=== PATIENT | male | born 1945 | race Hispanic/Latino ===

== ENCOUNTER 2018-12-28 22:34 | Inpatient (IN) | payer MEDICARE ==
--- NOTE | 2018-12-28 22:46 | Emergency Department Report ---
ED Shortness of Breath HPI - General Stated Complaint: RESP ARREST Time Seen by Provider: 12/28/18 22:34 Source: family, EMS Mode of arrival: Stretcher Limitations: Altered Mental Status - History of Present Illness Initial Comments: Patient is a 73-year-old male presents emergency room via EMS for respiratory arrest.. Report received from EMS. EMS states that the patient was found down with agonal breathing. Patient was given respiratory support via nasal trumpet and BVM. Patient had a pulse entire time. Report received from family. Family states the patient has been having increased shortness of breath over the past 2 weeks. states that the patient went to bed and when she went up to check on him 10 minutes later the patient was unresponsive with shallow breathing. MD Complaint: shortness of breath -: Sudden Consistency: constant Known History Of: diabetes Treatments Prior to Arrival: oxygen - Related Data Home Oxygen Therapy: No ED Review of Systems ROS: Stated complaint: RESP ARREST Other details as noted in HPI Comment: Unobtainable due to pts medical conditions ED Past Medical Hx - Past Medical History Previous Medical History?: Yes Hx Hypertension: Yes Hx Heart Attack/AMI: Yes Hx Diabetes: Yes Hx Arthritis: Yes Additional medical history: RLS - Surgical History Past Surgical History?: Yes Hx Open Heart Surgery: Yes Additional Surgical History: cabg - Family History Family history: no significant - Social History Smoking Status: Never Smoker Substance Use Type: None ED Physical Exam - General Limitations: Altered Mental Status General appearance: lethargic - Head Head exam: Present: atraumatic, normocephalic - Eye Eye exam: Present: normal appearance, PERRL Pupils: Present: normal accommodation - ENT ENT exam: Present: mucous membranes dry - Neck Neck exam: Present: normal inspection - Respiratory Respiratory exam: Present: respiratory distress, rhonchi, decreased breath sounds - Cardiovascular Cardiovascular Exam: Present: regular rate, normal rhythm. Absent: systolic murmur, diastolic murmur, rubs, gallop - GI/Abdominal GI/Abdominal exam: Present: soft, normal bowel sounds. Absent: distended, tenderness, guarding - Rectal Rectal exam: Present: deferred - Extremities Exam Extremities exam: Present: normal inspection - Back Exam Back exam: Present: normal inspection - Neurological Exam Neurological exam: Present: altered - Skin Skin exam: Present: warm, dry, intact, normal color. Absent: rash ED Course Vital Signs 12/28/18 12/28/18 12/28/18 22:34 22:45 23:00 Pulse Rate 84 81 Respiratory 19 17 Rate Blood Pressure 137/72 137/72 O2 Sat by Pulse 91 94 91 Oximetry 12/28/18 12/28/18 12/28/18 23:15 23:30 23:45 Pulse Rate 66 54 L Respiratory 19 10 L Rate Blood Pressure 78/44 137/72 91/49 O2 Sat by Pulse 96 95 96 Oximetry 12/29/18 12/29/18 12/29/18 00:00 00:16 00:30 Pulse Rate 75 57 L 56 L Respiratory 16 7 L 0 L Rate Blood Pressure 182/96 117/61 131/65 O2 Sat by Pulse 96 98 98 Oximetry 12/29/18 12/29/18 12/29/18 00:37 00:45 01:16 Pulse Rate 74 48 L 48 L Respiratory 9 L 18 Rate Blood Pressure 117/61 95/44 97/52 O2 Sat by Pulse 95 96 89 Oximetry 12/29/18 12/29/18 12/29/18 02:00 02:30 02:45 Pulse Rate 52 L 50 L 45 L Respiratory 17 11 L 22 Rate Blood Pressure 83/36 67/38 84/44 O2 Sat by Pulse 98 96 95 Oximetry 12/29/18 12/29/18 03:00 03:30 Pulse Rate 49 L 48 L Respiratory 22 22 Rate Blood Pressure 86/47 100/52 O2 Sat by Pulse 92 95 Oximetry - Reevaluation(s) Reevaluation #1: Patient evaluated immediately upon arrival. Patient has a nasal trumpet connected to a BVM by EMS. Patient was found to be hypoxic and decreased responsiveness by EMS. Patient will be immediately intubated. 12/28/18 22:32 Reevaluation #2: Placed on propofol and became hypotensive. Patient propofol reduced and patient will be given a fluid bolus. We will continue to monitor the patient's blood pressure. 12/28/18 23:26 Blood pressure is improving 12/28/18 23:51 Propofol drip DC'd due to blood pressure. Patient placed on a fentanyl drip. Blood pressure has improved. 12/29/18 00:01 Patient on that and on a fentanyl drip. Patient's blood pressure low again patient will be given another bolus of saline. 12/29/18 01:00 Blood pressure is better. Patient sent to CT of the head and a CTA of the chest. 12/29/18 01:[address] Patient's blood pressure is low again. Patient will have a central line place and another saline bolus 12/29/18 02:00 Left femoral central line placed. See procedure note 12/29/18 03:02 Patient will be admitted to the hospitalist service. Patient will be given 1 unit of PRBCs. 12/29/18 03:48 - Consultations Consultation #1: Hospitalist consulted for admission. Hospitalist to admit patient into ICU. 12/29/18 03:39 - Central Line Placement Left Femoral Consent Obtained: emergent situation Time Out Performed: Yes Patient Placed on Monitor/Pulse Ox: Yes MD Prep: mask, gown, gloves Central Line Prep: Chlorhexidine scrub, sterile drapes applied Local Anesthesia Used: Lidocaine 1% Ultrasound Used for Placement: Yes Central Line Lumen Inserted: triple Bloods Obtained for Lab: No Central Line Position: good blood return, all ports aspirated, flus, sutured in place with 2-0 Dressing Applied: Tegaderm Patient Tolerated Procedure: well Complications: none - Intubation Time Out Performed: Yes Sedative: Etomidate Paralytic: Succinylcholine Laryngoscope: fiberoptic video scope Size: 4 ET Tube Size: 8 Tube Secured Depth (cm): 23 Tube Secured Location: teeth Tube Placement Confirmation: visualized tube passing t, equal breath sounds bilat, no breath sounds over epi, confirmation by capnometr Patient Tolerated Procedure: well Intubation Complications: none ED Medical Decision Making - Lab Data Result diagrams: 12/28/18 23:58 12/28/18 23:58 - EKG Data -: EKG Interpreted by Nh EKG shows normal: sinus rhythm, axis, intervals, QRS complexes, ST-T waves Rate: bradycardia - Radiology Data Radiology results: report reviewed PROCEDURE: CT ANGIO CHEST TECHNIQUE: Computerized tomographic angiography of the chest was performed after the IV injection of iodinated nonionic contrast including image processing. The image data was postprocessed using 2-dimensional multiplanar reformatted (MPR) and 3-dimensional (MIP and/or volume rendered) techniques. Automated exposure control, adjustment of mA and/or kV according to patient size, or iterative reconstruction dose optimization techniques were utilized. CT DOSE LENGTH PRODUCT: 1011.7 mGycm HISTORY: sob. hypoxia COMPARISONS: None . FINDINGS: Heart and pericardium: The heart is enlarged. Thoracic aorta: There is no thoracic aortic aneurysm or dissection. Pulmonary vasculature: There is no pulmonary embolism.. Lymph nodes: No enlarged thoracic lymph nodes. Lungs: There are bilateral pleural effusions larger on the right. There is complete atelectasis of the right lung.. 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 No obstructing mass is seen. Endotracheal tube is in the distal trachea above the christina. Pleural space: There is no pneumothorax.. Musculoskeletal structures: No significant abnormality. Upper abdominal structures: No significant abnormality. IMPRESSION: The heart is enlarged. There is no thoracic aortic aneurysm or dissection. There is no pulmonary embolism.. There are bilateral pleural effusions larger on the right. There is complete atelectasis of the right lung.. There is complete obstruction of the right mainstem bronchus and di stal branches possibly due to tracheomalacia. No obstructing mass is seen. Endotracheal tube is in the distal trachea above the christina. There is no pneumothorax.. . PROCEDURE: CT HEAD/BRAIN WO CON TECHNIQUE: Computerized tomography of the head was performed without contrast material. CT DOSE LENGTH PRODUCT: 1121.9 mGycm HISTORY: ams COMPARISONS: None . FINDINGS: Skull and scalp: Normal . Paranasal sinuses: Normal . Ventricles and subarachnoid spaces: There is moderate central and cortical atrophy. There is no hydrocephalus or asymmetry. . Cerebrum: No evidence of hemorrhage, acute infarction or mass . There is focal encephalomalacia in the right occipital lobe suggesting old infarct. Cerebellum and brainstem: No evidence of hemorrhage, acute infarction or mass . Vasculature: Normal . 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 There is no acute int racranial abnormality PROCEDURE: XR CHEST 1V AP TECHNIQUE: Chest radiograph single view. HISTORY: Dyspnea. et tube COMPARISONS: None . FINDINGS: Heart: Normal. Mediastinum/Vessels: Normal. Lungs/Pleural space: There is complete opacification of the right hemithorax could be due to a large effusion. The left lung is clear and expanded.. Bony thorax: No acute osseous abnormality. Life support devices: Endotracheal tube is in the mid trachea. NG tube appears to be in the stomach.. IMPRESSION: Heart size appears normal. There has been open heart surgery.. There is complete opacification of the right hemithorax could be due to a large effusion. The left lung is clear and expanded.. Endotracheal tube is in the mid trachea. NG tube appears to be in the stomach.. - Medical Decision Making Patient is a 73-year-old male presents emergency room after respiratory arrest. Patient found to be hypoxic and unresponsive by EMS patient was brought in by EMS. Patient has multiple malleolus labs. Patient had a CTA of the chest which showed no dissection or PE. Patient's finding on CTA and chest x-ray are a right-sided complete effusion. Patient was intubated male upon arrival for airway stabilization and hypoxia. Patient x-ray shows that the ET tube was in good placement. Patient has had chronic bouts of hypotension and had a central line placed. Patient was started on Levophed. Patient will be admitted to the hospitalist team and into the ICU. Patient will be transfused one unit for anemia and low blood pressure - Differential Diagnosis respiratory arrest. Altered mental status. Hypoxia. Critical Care Time: Yes Critical care attestation.: If time is entered above; I have spent that time in minutes in the direct care of this critically ill patient, excluding procedure time. Critical Care Time: 80 minutes ED Disposition Clinical Impression: Unresponsive, Respiratory arrest, Hypoxia, Hypokalemia, Low serum calcium, Respiratory acidosis, Elevated d-dimer, Elevated brain natriuretic peptide (BNP) level, Acute hypernatremia Respiratory failure Qualifiers: Chronicity: acute Respiratory failure complication: hypoxia and hypercapnia Qualified Code(s): J96.01 - Acute respiratory failure with hypoxia Anemia Qualifiers: Anemia type: unspecified type Qualified Code(s): D64.9 - Anemia, unspecified Hypotension Qualifiers: Hypotension type: unspecified hypotension type Qualified Code(s): I95.9 - Hypotension, unspecified Disposition: 09 OP ADMIT IP TO THIS HOSP Is pt being admited?: Yes Does the pt Need Aspirin: No Condition: Critical Time of Disposition: 03:45
[2018-12-28] MEDS ORDERED: DIPRIVAN 10 MG/ML 1,000 MG/100 ML BOTTLE IV ONE (23:02)
[2018-12-28] MEDS ORDERED: NACL 0.9% 1000 ML 1,000 ML IV ONE (23:25)
[2018-12-28] MEDS ORDERED: MAXIPIME/NS 1 GM/100 ML 1 GM/100 ML BAG IV ONE (23:42)
[2018-12-29 00:13] LABS: Basophils % (Auto) 0.1 % (0.0-1.8); Eosinophils % (Auto) 0.6 % (0.0-4.3); Hematocrit 20.9 % (35.5-45.6); Hemoglobin 6.7 gm/dl (11.8-15.2); Lymphocytes # (Auto) 0.6 K/mm3 (1.2-5.4); Lymphocytes % (Auto) 10.7 % (13.4-35.0); Mean Corpuscular HGB Conc 32 % (32-34); Mean Corpuscular Volume 94 fl (84-94); Monocytes # (Auto) 0.4 K/mm3 (0.0-0.8); Monocytes % (Auto) 7.9 % (0.0-7.3); Red Blood Count 2.24 M/mm3 (3.65-5.03); Red Cell Distribution Width 16.4 % (13.2-15.2)
[2018-12-29 00:35] LABS: Creatine Kinase MB 1.9 ng/mL (0.0-4.0)
[2018-12-29 00:37] LABS: Albumin 1.1 g/dL (3.9-5); BUN/Creatinine Ratio 23; Blood Urea Nitrogen 9 mg/dL (9-20); Hemolysis Index 11
--- NOTE | 2018-12-29 00:46 | XRay Report ---
PROCEDURE: XR CHEST 1V AP TECHNIQUE: Chest radiograph single view. HISTORY: Dyspnea. et tube COMPARISONS: None . FINDINGS: Heart: Normal. Mediastinum/Vessels: Normal. Lungs/Pleural space: There is complete opacification of the right hemithorax could be due to a large effusion. The left lung is clear and expanded.. Bony thorax: No acute osseous abnormality. Life support devices: Endotracheal tube is in the mid trachea. NG tube appears to be in the stomach.. IMPRESSION: Heart size appears normal. There has been open heart surgery.. There is complete opacification of the right hemithorax could be due to a large effusion. The left linda ng is clear and expanded.. Endotracheal tube is in the mid trachea. NG tube appears to be in the stomach.. This document is electronically signed by David Samayoa MD., December 29 2018 12:44:27 AM ET
[2018-12-29 01:12] LABS: Alanine Aminotransferase < 5 units/L (7-56)
[2018-12-29] MEDS ORDERED: CALCIUM CHLORIDE IVP ONE (01:19)
[2018-12-29 02:18] LABS: INR 1.09 (0.87-1.13); Partial Thromboplastin Time 26.9 Sec. (24.2-36.6)
[2018-12-29 02:25] LABS: Platelet Count 99 K/mm3 (140-440)
[2018-12-29] MEDS: KCL 10MEQ/100ML 10 MEQ/100 ML BAG IV SCH ×3 (02:30→16:26)
--- NOTE | 2018-12-29 02:30 | Cat Scan Report ---
PROCEDURE: CT HEAD/BRAIN WO CON TECHNIQUE: Computerized tomography of the head was performed without contrast material. CT DOSE LENGTH PRODUCT: 1121.9 mGycm HISTORY: ams COMPARISONS: None . FINDINGS: Skull and scalp: Normal . Paranasal sinuses: Normal . Ventricles and subarachnoid spaces: There is moderate central and cortical atrophy. There is no hydr ocephalus or asymmetry. . Cerebrum: No evidence of hemorrhage, acute infarction or mass . There is focal encephalomalacia in t he right occipital lobe suggesting old infarct. Cerebellum and brainstem: No evidence of hemorrhage, acute infarction or mass . Vasculature: Normal . 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 There is no acute intracranial abnormality. . This document is electronically signed by David Samayoa MD., December 29 2018 02:28:19 AM ET
--- NOTE | 2018-12-29 02:35 | Cat Scan Report ---
PROCEDURE: CT ANGIO CHEST TECHNIQUE: Computerized tomographic angiography of the chest was performed after the IV injection of iodinated nonionic contrast including image processing. The image data was postprocessed using 2-di mensional multiplanar reformatted (MPR) and 3-dimensional (MIP and/or volume rendered) techniques. Au tomated exposure control, adjustment of mA and/or kV according to patient size, or iterative reconstr uction dose optimization techniques were utilized. CT DOSE LENGTH PRODUCT: 1011.7 mGycm HISTORY: sob. hypoxia COMPARISONS: None . FINDINGS: Heart and pericardium: The heart is enlarged. Thoracic aorta: There is no thoracic aortic aneurysm or dissection. Pulmonary vasculature: There is no pulmonary embolism.. Lymph nodes: No enlarged thoracic lymph nodes. Lungs: There are bilateral pleural effusions larger on the right. There is complete atelectasis of t he right lung.. There is complete obstruction of the right mainstem bronchus and distal branches poss ibly due to tracheomalacia. No obstructing mass is seen. Endotracheal tube is in the distal trachea a nelia the christina. Pleural space: There is no pneumothorax.. Musculoskeletal structures: No significant abnormality. Upper abdominal structures: No significant abnormality. IMPRESSION: The heart is enlarged. There is no thoracic aortic aneurysm or dissection. There is no pulmonary embolism.. There are bilateral pleural effusions larger on the right. There is complete atelectasis of the right lung.. 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 No obstructing mass is seen. Endotracheal tube is in the distal trachea above the christina. There is no pneumothorax.. . This document is electronically signed by David Samayoa MD., December 29 2018 02:33:19 AM ET
[2018-12-29] MEDS ORDERED: LEVOPHED DRIP 4 MG/NS 250 ML 4 MG/250 ML BAG IV ONE (02:59)
[2018-12-29] MEDS ORDERED: NACL 0.9% 1000 ML 1,000 ML IV ONE ×2 (03:00→03:02)
[2018-12-29] MEDS ORDERED: NACL 0.9% 500 ML 500 ML IV ONE (03:36)
[2018-12-29 03:42] LABS: Bacteria,Urine 4+ /HPF (Negative); Bilirubin,Urine NEG (Negative); Blood,Urine MOD (Negative); Color,Urine Amber (Yellow); Mucus,Urine 3+ /HPF; Urobilinogen,Urine < 2.0 mg/dL (<2.0)
[2018-12-29 03:43] LABS: Protein,Urine >500 mg/dL (Negative)
[2018-12-29 03:45] LABS: Amphetamine Screen,Urine PRESUMPTIVE NEGATIVE; Benzodiazepines Screen,Urine PRESUMPTIVE NEGATIVE; Cannabinoid Screen,Urine PRESUMPTIVE NEGATIVE; Cocaine Screen,Urine PRESUMPTIVE NEGATIVE; Methadone Screen,Urine PRESUMPTIVE NEGATIVE; Opiate Screen,Urine PRESUMPTIVE NEGATIVE
[2018-12-29] MEDS ORDERED: D50W (25GM) Syringe IV PRN (04:47)
[2018-12-29] MEDS ORDERED: TYLENOL PR PRN (04:49)
[2018-12-29] MEDS ORDERED: ZOFRAN IV PRN (04:49)
[2018-12-29] MEDS ORDERED: NACL 0.9% 250ML 250 ML ONE (06:18)
--- NOTE | 2018-12-29 07:01 | History and Physical Report ---
CHIEF COMPLAINT: Unresponsiveness. OTHER COMPLAINT: Include respiratory distress. HISTORY OF PRESENTING ILLNESS: The patient is a 73-year-old male, brought in by [facility] because of unresponsiveness with respiratory arrest. The patient was found down with agonal breathing and EMS then gave the patient some respiratory support via oxygen by nasal cannula and the patient started feeling better. EMS noted the patient had palse during the entire time of unresponsiveness and the patient's symptom was noted by family to have started about 2 weeks ago with weakness and dyspnea. The said that the patient went to bed and when she went to check on him 10 minutes later, the patient was unresponsive with shallow breathing and EMS was called and there was no prior history of chest pain. No prior history of fever or cough and there was also no prior history of nausea and vomiting. PAST MEDICAL HISTORY: Pertinent for hypertension, coronary artery disease, status post myocardial infarction. Also the patient has past history of diabetes mellitus, arthritis. PAST SURGICAL HISTORY: Pertinent for coronary artery bypass graft. FAMILY HISTORY: Family history is noncontributory. SOCIAL HISTORY: The patient lives with family. Does not smoke cigarette, does not drink alcohol and does not use illicit drugs. MEDICATIONS: The patient's home medications are not known at this time. ALLERGIES: THE PATIENT IS ALLERGIC TO PENICILLIN. REVIEW OF SYSTEMS: CONSTITUTIONAL: There is no fever, no chills, no diaphoresis. HEENT: There is no headache or sore throat. CARDIOVASCULAR SYSTEM: There is no chest pain or orthopnea. RESPIRATORY SYSTEM: There is shortness of breath, but no cough. GASTROINTESTINAL SYSTEM: There is no nausea, no vomiting, no abdominal pain, diarrhea or constipation. NEUROLOGICAL SYSTEM: Unresponsiveness noted. MUSCULOSKELETAL SYSTEM: There is no joint pain or swelling. DERMATOLOGICAL SYSTEM: There is no skin rash or itching. GENITOURINARY SYSTEM: There is no dysuria, hematuria or flank pain. Rest of system review is normal. PHYSICAL EXAMINATION: GENERAL: At the time of exam, the patient was found to be sedated, intubated and mechanically ventilated with orogastric tube in place. VITAL SIGNS: At the initial time of presentation showed pulse of 84, respiration 19, blood pressure of 137/72, O2 sat of 91% on oxygen. HEENT: Show pupils to be round, reactive to light and accommodating. Oral mucosa shows the endotracheal tube in place and orogastric tube also in place. NECK: Neck is supple with no JVD or carotid bruit. CARDIOVASCULAR SYSTEM: Showed normal first and second heart sounds with no gallops or murmurs. RESPIRATORY SYSTEM: Show good air entry on both sides of the lung via the endotracheal tube. GASTROINTESTINAL SYSTEM: Show abdomen to be full, soft, nontender with no organomegaly or rigidity. NEUROLOGICAL: Neuro exam shows no focal deficit. MUSCULOSKELETAL SYSTEM: Show no joint swelling or tenderness. DERMATOLOGICAL SYSTEM: Show no skin rash. GENITOURINARY SYSTEM: Showing no costovertebral angle tenderness. PERTINENT LABORATORY DATA AND IMAGING STUDIES: The patient had chest x-ray done that shows normal heart size and finding of complete opacification of the right hemithorax which the radiologist say could be due to likely pleural effusion. The left lung looks clear and the endotracheal tube is in the mid-tracheal area. orogastric tube appears to be in the stomach according to the reading. Also the patient had CT of the head without contrast done that shows old right occipital infarct with no acute intracranial abnormality found. The patient had CT angiogram of the chest done that shows no thoracic aortic aneurysm or dissection. There is no pulmonary embolism. No enlarged thoracic lymph nodes were found but there were bilateral pleural effusions, larger on the right and complete atelectasis on the right lung. Also, there is finding of complete obstruction of the right main bronchus and distal branches possibly due to tracheomalacia. Radiology said that no obstructing mass is seen and the endotracheal tube is in the distal trachea above the christina. Musculoskeletal structures showed no significant abnormality. There is no pneumothorax found. Lab results; the patient's CBC showed normal white count, low hemoglobin of 6.7 and low hematocrit of 20.9 with low platelet of 99,000. CBC differential shows elevated segmented neutrophil count of 80.7% and elevated monocyte count of 7.9%. The patient's coagulation studies show a high D-dimer of 815 that led to the ordering of the CT angiogram of the chest. The patient's ABG showed low pH of 7.169 with pCO2 pending and pO2 of 98 and O2 sat of 95% with FiO2 of 100%. The patient's chemistry show elevated sodium level of 148 and low potassium level of 2.3 with elevated chloride level of 128. The patient's calcium level was low with a value of 5.0. Also, the patient's albumin is correspondingly low with a value of 1.1. The patient's brain-natriuretic peptide level is high with a value of 1209. DIAGNOSES: 1. Respiratory failure needing mechanical ventilation. 2. Unresponsiveness. 3. Anemia. 4. Electrolyte imbalance involving hypokalemia, hypocalcemia and hypernatremia. 5. Hypotension. 6. Right lung effusion. PLAN: 1. The patient will be admitted to the Critical Care Unit. 2. The patient will have critical care consult with Dr. Doss, who will also evaluated the patient for right pleural effusion and right main bronchus obstruction. 3. The patient will have cardiac enzymes involving troponin, total CK and CK-MB check serially q. 6 hours x 2. 4. The patient will have IV normal saline running at 100mL an hour. 5. The patient will be on p.r.n. medications like Tylenol 650 mg by mouth every 4 hour for fever and headache. 6. The patient will be on p.r.n. medications like IV Zofran 4 mg every 8 hours for nausea and vomiting and Tylenol suppository 650 mg every 4 hours for fever and headache. 7. The patient will have Respiratory therapy consult to manage the ventilator. 8. The patient will have post-transfusion hemoglobin and hematocrit check as well as have basic metabolic panel check in the morning. 9. The patient will continue IV potassium replacement started in the Emergency Room and I.V levophed to maintain blood normal pressure JOB# [id number] OCN/NTS RICHARD
[2018-12-29 09:19] LABS: Hematocrit 43.3 % (35.5-45.6); Hemoglobin 13.7 gm/dl (11.8-15.2)
[2018-12-29] MEDS: fentaNYL DRIP Premix 2,000 MCG/100 ML BAG IV SCH ×2 (09:22→13:47)
--- NOTE | 2018-12-29 09:54 | Consultation ---
History of Present Illness Consult date: 12/29/18 Requesting physician: LAURI REGALADO Reason for consult: other (Acute Hypoxemic Respiratory Failure) History of present illness: PULMONARY/CCM CONSULT NOTE (Full dictation # [id number]) Please see dictated notes for full details Medications and Allergies Allergies Allergy/AdvReac Type Severity Reaction Status Date / Time Penicillins Allergy Unknown Verified 12/29/18 04:18 Active Meds: Active Medications Acetaminophen (Tylenol) 650 mg MT Q4H PRN PRN Reason: Fever >101 Dextrose (D50w (25gm) Syringe) 50 ml IV PRN PRN PRN Reason: Hypoglycemia Heparin Sodium (Porcine) (Heparin) 5,000 unit SUB-Q Q12HR WENDY Fentanyl Citrate (Fentanyl Drip Premix) 2,000 mcg in 100 mls @ 7.25 mls/hr IV TITR WENDY; Protocol Last Admin: 12/29/18 09:22 Dose: 2 mcg/kg/hr, 14.5 mls/hr Documented by: Norepinephrine (Levophed Drip 4 Mg/Ns 250 Ml) 4 mg in 250 mls @ 7.5 mls/hr IV TITR ONE; Protocol Stop: 12/30/18 12:18 Last Titration: 12/29/18 09:40 Dose: 10 mcg/min, 37.5 mls/hr Documented by: Sodium Chloride (Nacl 0.9% 1000 Ml) 1,000 mls @ 100 mls/hr IV DIRECT WENDY Propofol (Diprivan 10 Mg/Ml) 1,000 mg in 100 mls @ 4.35 mls/hr IV TITR WENDY; Protocol Levetiracetam (Keppra 1,000 Mg/Ns 0.75% 100ml) 1,000 mg in 100 mls @ 400 mls/hr IV ONCE ONE Stop: 12/29/18 10:14 Potassium Chloride (Kcl 10meq/100ml) 10 meq in 100 mls @ 100 mls/hr IV ONCE ONE Stop: 12/29/18 10:59 Insulin Human Regular (Humulin R) 0 units SUB-Q Q4H WENDY; Protocol Ondansetron HCl (Zofran) 4 mg IV Q8H PRN PRN Reason: Nausea And Vomiting Physical Examination Vital signs: Vital Signs Pulse Resp Pulse Ox 84 19 91 12/28/18 22:34 12/28/18 22:34 12/28/18 22:34 Results - Laboratory Findings CBC and BMP: 12/29/18 12:51 12/29/18 12:51 ABG POC ABG pH 7.225 (7.35-7.45) L 12/29/18 05:02 POC ABG pCO2 57.9 (35-45) H 12/29/18 05:02 POC ABG pO2 85 (80-105) 12/29/18 05:02 POC ABG HCO3 24.0 (22-26 mml/L) 12/29/18 05:02 POC ABG Total CO2 26 (23-27mmol/L) 12/29/18 05:02 POC ABG O2 Sat 94 12/29/18 05:02 PT/INR, D-dimer PT 14.8 Sec. (12.2-14.9) 12/29/18 01:51 INR 1.09 (0.87-1.13) 12/29/18 01:51 D-Dimer 815.50 ng/mlDDU (0-234) H 12/28/18 23:58 Abnormal lab findings: Abnormal Labs 12/28/18 12/28/18 12/28/18 23:58 23:58 23:58 RBC 2.24 L Hgb 6.7 L Hct 20.9 L RDW 16.4 H Plt Count 99 L Lymph % (Auto) 10.7 L [place] % (Auto) 7.9 H Lymph # 0.6 L Seg Neutrophils % 80.7 H D-Dimer 815.50 H POC ABG pH POC ABG pCO2 Sodium 148 H Potassium 2.3 L* Chloride 128.4 H Carbon Dioxide 12 L Creatinine 0.4 L POC Glucose Calcium 5.0 L* ALT < 5 L Total Creatine Kinase 44 L CK-MB (CK-2) Rel Index 4.3 H NT-Pro-B Natriuret Pep Total Protein 2.3 L Albumin 1.1 L Ur Specific [place] Urine WBC (Auto) Crossmatch 12/28/18 12/29/18 12/29/18 23:58 00:27 01:53 RBC Hgb Hct RDW Plt Count Lymph % (Auto) [place] % (Auto) Lymph # Seg Neutrophils % D-Dimer POC ABG pH 7.169 L POC ABG pCO2 Sodium Potassium Chloride Carbon Dioxide Creatinine POC Glucose Calcium ALT Total Creatine Kinase CK-MB (CK-2) Rel Index NT-Pro-B Natriuret Pep 1209 H Total Protein Albumin Ur Specific [place] Urine WBC (Auto) Crossmatch See Detail 12/29/18 12/29/18 12/29/18 03:00 05:02 08:34 RBC Hgb Hct RDW Plt Count Lymph % (Auto) [place] % (Auto) Lymph # Seg Neutrophils % D-Dimer POC ABG pH 7.225 L POC ABG pCO2 57.9 H Sodium Potassium Chloride Carbon Dioxide Creatinine POC Glucose 119 H Calcium ALT Total Creatine Kinase CK-MB (CK-2) Rel Index NT-Pro-B Natriuret Pep Total Protein Albumin Ur Specific [place] 1.033 H Urine WBC (Auto) 31.0 H Crossmatch
[2018-12-29] MEDS ORDERED: KEPPRA 1,000 MG/NS 0.75% 100ML 1,000 MG/100 ML BAG IV ONE (10:00)
[2018-12-29] MEDS ORDERED: KCL 10MEQ/100ML 10 MEQ/100 ML BAG IV ONE (10:00)
[2018-12-29 10:09] LABS: Calcium 8.8 mg/dL (8.4-10.2)
[2018-12-29 10:11] LABS: Creatine Kinase MB 7.9 ng/mL (0.0-4.0)
[2018-12-29 10:35] LABS: Chol/HDL Ratio 3.52 %
[2018-12-29] MEDS: HEPARIN SUB-Q SCH ×2 (11:00→22:00)
[2018-12-29] MEDS: HumuLIN R SUB-Q SCH ×5 (12:05→21:00)
--- NOTE | 2018-12-29 12:41 | Progress Note ---
Subjective Date of service: 12/29/18 Interval history: Brief progress note This is a second IMS visit of the day Patient seen and examined Family in the room and answered all the questions Patient is intubated but is quite alert and follows all commands With careful history from the family, it looks like patient had a seizure Patient went into bed, and after 10 minutes they found him on the floor unresponsive and with urinary incontinence and some blood on the tongue History of stroke 2 years ago, apparently per family the second seizure in the past 2 years All lab results were reviewed The first set of all the labs most likely is a lab error, based on repeat CBC and BMP Patient was started on IV Keppra Cardiology and neurology consults were requested EEG ordered Discussed with cardiology to see if norepinephrine can be held and monitor his blood pressure Objective - Constitutional Vitals: Vital Signs - 12hr 12/29/18 12/29/18 12/29/18 00:45 01:16 02:00 Temperature Pulse Rate 48 L 48 L 52 L Pulse Rate [ Intra-Procedure ] Pulse Rate [ Post-Procedure] Pulse Rate [Pre -Procedure] Respiratory 9 L 18 17 Rate Respiratory Rate [Intra- Procedure] Respiratory Rate [Post- Procedure] Respiratory Rate [Pre- Procedure] Blood Pressure 95/44 97/52 83/36 Blood Pressure [Intra- Procedure] Blood Pressure [Post-Procedure ] Blood Pressure [Pre-Procedure] O2 Sat by Pulse 96 89 98 Oximetry O2 Sat by Pulse Oximetry [ Intra-Procedure ] O2 Sat by Pulse Oximetry [Post -Procedure] O2 Sat by Pulse Oximetry [Pre- Procedure] 12/29/18 12/29/18 12/29/18 02:30 02:45 03:00 Temperature Pulse Rate 50 L 45 L 49 L Pulse Rate [ Intra-Procedure ] Pulse Rate [ Post-Procedure] Pulse Rate [Pre -Procedure] Respiratory 11 L 22 22 Rate Respiratory Rate [Intra- Procedure] Respiratory Rate [Post- Procedure] Respiratory Rate [Pre- Procedure] Blood Pressure 67/38 84/44 86/47 Blood Pressure [Intra- Procedure] Blood Pressure [Post-Procedure ] Blood Pressure [Pre-Procedure] O2 Sat by Pulse 96 95 92 Oximetry O2 Sat by Pulse Oximetry [ Intra-Procedure ] O2 Sat by Pulse Oximetry [Post -Procedure] O2 Sat by Pulse Oximetry [Pre- Procedure] 12/29/18 12/29/18 12/29/18 03:30 03:37 03:45 Temperature Pulse Rate 48 L 49 L Pulse Rate [ Intra-Procedure ] Pulse Rate [ Post-Procedure] Pulse Rate [Pre -Procedure] Respiratory 22 22 Rate Respiratory Rate [Intra- Procedure] Respiratory Rate [Post- Procedure] Respiratory Rate [Pre- Procedure] Blood Pressure 100/52 95/48 Blood Pressure [Intra- Procedure] Blood Pressure [Post-Procedure ] Blood Pressure [Pre-Procedure] O2 Sat by Pulse 95 99 96 Oximetry O2 Sat by Pulse Oximetry [ Intra-Procedure ] O2 Sat by Pulse Oximetry [Post -Procedure] O2 Sat by Pulse Oximetry [Pre- Procedure] 12/29/18 12/29/18 12/29/18 04:16 04:30 04:45 Temperature Pulse Rate 45 L 49 L 54 L Pulse Rate [ Intra-Procedure ] Pulse Rate [ Post-Procedure] Pulse Rate [Pre -Procedure] Respiratory 22 22 22 Rate Respiratory Rate [Intra- Procedure] Respiratory Rate [Post- Procedure] Respiratory Rate [Pre- Procedure] Blood Pressure 149/71 142/69 145/71 Blood Pressure [Intra- Procedure] Blood Pressure [Post-Procedure ] Blood Pressure [Pre-Procedure] O2 Sat by Pulse 93 94 97 Oximetry O2 Sat by Pulse Oximetry [ Intra-Procedure ] O2 Sat by Pulse Oximetry [Post -Procedure] O2 Sat by Pulse Oximetry [Pre- Procedure] 12/29/18 12/29/18 12/29/18 05:00 05:05 05:10 Temperature Pulse Rate 49 L 56 L Pulse Rate [ 47 L Intra-Procedure ] Pulse Rate [ 47 L Post-Procedure] Pulse Rate [Pre 47 L -Procedure] Respiratory 22 Rate Respiratory 18 Rate [Intra- Procedure] Respiratory 18 Rate [Post- Procedure] Respiratory 18 Rate [Pre- Procedure] Blood Pressure 91/72 139/70 Blood Pressure 86/47 [Intra- Procedure] Blood Pressure 99/51 [Post-Procedure ] Blood Pressure 91/58 [Pre-Procedure] O2 Sat by Pulse 94 Oximetry O2 Sat by Pulse 100 Oximetry [ Intra-Procedure ] O2 Sat by Pulse 100 Oximetry [Post -Procedure] O2 Sat by Pulse 100 Oximetry [Pre- Procedure] 12/29/18 12/29/18 12/29/18 05:15 05:30 08:00 Temperature 98.5 F Pulse Rate 51 L 48 L 45 L Pulse Rate [ Intra-Procedure ] Pulse Rate [ Post-Procedure] Pulse Rate [Pre -Procedure] Respiratory 22 22 Rate Respiratory Rate [Intra- Procedure] Respiratory Rate [Post- Procedure] Respiratory Rate [Pre- Procedure] Blood Pressure 116/57 107/55 Blood Pressure [Intra- Procedure] Blood Pressure [Post-Procedure ] Blood Pressure [Pre-Procedure] O2 Sat by Pulse 96 98 96 Oximetry O2 Sat by Pulse Oximetry [ Intra-Procedure ] O2 Sat by Pulse Oximetry [Post -Procedure] O2 Sat by Pulse Oximetry [Pre- Procedure] 12/29/18 10:25 Temperature Pulse Rate 54 L Pulse Rate [ Intra-Procedure ] Pulse Rate [ Post-Procedure] Pulse Rate [Pre -Procedure] Respiratory Rate Respiratory Rate [Intra- Procedure] Respiratory Rate [Post- Procedure] Respiratory Rate [Pre- Procedure] Blood Pressure Blood Pressure [Intra- Procedure] Blood Pressure [Post-Procedure ] Blood Pressure [Pre-Procedure] O2 Sat by Pulse 96 Oximetry O2 Sat by Pulse Oximetry [ Intra-Procedure ] O2 Sat by Pulse Oximetry [Post -Procedure] O2 Sat by Pulse Oximetry [Pre- Procedure] - Labs CBC & Chem 7: 12/29/18 08:34 12/29/18 08:53 Labs: Abnormal lab results 12/28/18 12/28/18 12/28/18 Range/Units 23:58 23:58 23:58 RBC 2.24 L (3.65-5.03) M/mm3 Hgb 6.7 L (11.8-15.2) gm/dl Hct 20.9 L (35.5-45.6) % RDW 16.4 H (13.2-15.2) % Plt Count 99 L (140-440) K/mm3 Lymph % (Auto) 10.7 L (13.4-35.0) % [place] % (Auto) 7.9 H (0.0-7.3) % Lymph # 0.6 L (1.2-5.4) K/mm3 Seg Neutrophils % 80.7 H (40.0-70.0) % D-Dimer 815.50 H (0-234) ng/mlDDU POC ABG pH (7.35-7.45) POC ABG pCO2 (35-45) Sodium 148 H (137-145) mmol/L Potassium 2.3 L* (3.6-5.0) mmol/L Chloride 128.4 H (98-107) mmol/L Carbon Dioxide 12 L (22-30) mmol/L BUN (9-20) mg/dL Creatinine 0.4 L (0.8-1.5) mg/dL Glucose (75-100) mg/dL POC Glucose (70-105) Calcium 5.0 L* (8.4-10.2) mg/dL ALT < 5 L (7-56) units/L Total Creatine Kinase 44 L (55-170) units/L CK-MB (CK-2) (0.0-4.0) ng/mL CK-MB (CK-2) Rel Index 4.3 H (0-4) Troponin T (0.00-0.029) ng/mL NT-Pro-B Natriuret Pep (0-900) pg/mL Total Protein 2.3 L (6.3-8.2) g/dL Albumin 1.1 L (3.9-5) g/dL HDL Cholesterol (40-59) mg/dL Ur Specific [place] (1.003-1.030) Urine WBC (Auto) (0.0-6.0) /HPF Crossmatch 12/28/18 12/29/18 12/29/18 Range/Units 23:58 00:27 01:53 RBC (3.65-5.03) M/mm3 Hgb (11.8-15.2) gm/dl Hct (35.5-45.6) % RDW (13.2-15.2) % Plt Count (140-440) K/mm3 Lymph % (Auto) (13.4-35.0) % [place] % (Auto) (0.0-7.3) % Lymph # (1.2-5.4) K/mm3 Seg Neutrophils % (40.0-70.0) % D-Dimer (0-234) ng/mlDDU POC ABG pH 7.169 L (7.35-7.45) POC ABG pCO2 (35-45) Sodium (137-145) mmol/L Potassium (3.6-5.0) mmol/L Chloride (98-107) mmol/L Carbon Dioxide (22-30) mmol/L BUN (9-20) mg/dL Creatinine (0.8-1.5) mg/dL Glucose (75-100) mg/dL POC Glucose (70-105) Calcium (8.4-10.2) mg/dL ALT (7-56) units/L Total Creatine Kinase (55-170) units/L CK-MB (CK-2) (0.0-4.0) ng/mL CK-MB (CK-2) Rel Index (0-4) Troponin T (0.00-0.029) ng/mL NT-Pro-B Natriuret Pep 1209 H (0-900) pg/mL Total Protein (6.3-8.2) g/dL Albumin (3.9-5) g/dL HDL Cholesterol (40-59) mg/dL Ur Specific [place] (1.003-1.030) Urine WBC (Auto) (0.0-6.0) /HPF Crossmatch See Detail 12/29/18 12/29/18 12/29/18 Range/Units 03:00 05:02 08:34 RBC (3.65-5.03) M/mm3 Hgb (11.8-15.2) gm/dl Hct (35.5-45.6) % RDW (13.2-15.2) % Plt Count (140-440) K/mm3 Lymph % (Auto) (13.4-35.0) % [place] % (Auto) (0.0-7.3) % Lymph # (1.2-5.4) K/mm3 Seg Neutrophils % (40.0-70.0) % D-Dimer (0-234) ng/mlDDU POC ABG pH 7.225 L (7.35-7.45) POC ABG pCO2 57.9 H (35-45) Sodium (137-145) mmol/L Potassium (3.6-5.0) mmol/L Chloride (98-107) mmol/L Carbon Dioxide (22-30) mmol/L BUN (9-20) mg/dL Creatinine (0.8-1.5) mg/dL Glucose (75-100) mg/dL POC Glucose (70-105) Calcium (8.4-10.2) mg/dL ALT (7-56) units/L Total Creatine Kinase 344 H (55-170) units/L CK-MB (CK-2) 7.9 H (0.0-4.0) ng/mL CK-MB (CK-2) Rel Index (0-4) Troponin T 0.103 H* D (0.00-0.029) ng/mL NT-Pro-B Natriuret Pep (0-900) pg/mL Total Protein (6.3-8.2) g/dL Albumin (3.9-5) g/dL HDL Cholesterol 34 L (40-59) mg/dL Ur Specific [place] 1.033 H (1.003-1.030) Urine WBC (Auto) 31.0 H (0.0-6.0) /HPF Crossmatch 12/29/18 12/29/18 Range/Units 08:34 08:53 RBC (3.65-5.03) M/mm3 Hgb (11.8-15.2) gm/dl Hct (35.5-45.6) % RDW (13.2-15.2) % Plt Count (140-440) K/mm3 Lymph % (Auto) (13.4-35.0) % [place] % (Auto) (0.0-7.3) % Lymph # (1.2-5.4) K/mm3 Seg Neutrophils % (40.0-70.0) % D-Dimer (0-234) ng/mlDDU POC ABG pH (7.35-7.45) POC ABG pCO2 (35-45) Sodium (137-145) mmol/L Potassium 5.7 H D (3.6-5.0) mmol/L Chloride (98-107) mmol/L Carbon Dioxide (22-30) mmol/L BUN 21 H (9-20) mg/dL Creatinine (0.8-1.5) mg/dL Glucose 124 H (75-100) mg/dL POC Glucose 119 H (70-105) Calcium (8.4-10.2) mg/dL ALT (7-56) units/L Total Creatine Kinase (55-170) units/L CK-MB (CK-2) (0.0-4.0) ng/mL CK-MB (CK-2) Rel Index (0-4) Troponin T (0.00-0.029) ng/mL NT-Pro-B Natriuret Pep (0-900) pg/mL Total Protein (6.3-8.2) g/dL Albumin (3.9-5) g/dL HDL Cholesterol (40-59) mg/dL Ur Specific [place] (1.003-1.030) Urine WBC (Auto) (0.0-6.0) /HPF Crossmatch
[2018-12-29 13:15] LABS: Basophils % (Auto) 0.4 % (0.0-1.8); Eosinophils # (Auto) 0.1 K/mm3 (0.0-0.4); Eosinophils % (Auto) 1.3 % (0.0-4.3); Hematocrit 42.9 % (35.5-45.6); Hemoglobin 13.9 gm/dl (11.8-15.2); Lymphocytes # (Auto) 1.9 K/mm3 (1.2-5.4); Lymphocytes % (Auto) 17.2 % (13.4-35.0); Mean Corpuscular HGB Conc 32 % (32-34); Mean Corpuscular Volume 90 fl (84-94); Monocytes # (Auto) 1.4 K/mm3 (0.0-0.8); Monocytes % (Auto) 13.3 % (0.0-7.3); Platelet Count 196 K/mm3 (140-440); Red Blood Count 4.79 M/mm3 (3.65-5.03)
[2018-12-29 13:35] LABS: BUN/Creatinine Ratio 14; Blood Urea Nitrogen 21 mg/dL (9-20); Calcium 8.8 mg/dL (8.4-10.2); Hemolysis Index 237
[2018-12-29 13:41] LABS: Creatine Kinase MB 10.5 ng/mL (0.0-4.0)
--- NOTE | 2018-12-29 14:04 | Progress Note ---
Subjective Date of service: 12/29/18 Interval history: got message to see patient for possible seizure will review records and go over imaging studies plan to follow up on the patient Objective - Vital Sign Vital Signs - 12hr 12/29/18 12/29/18 12/29/18 02:30 02:45 03:00 Temperature Pulse Rate 50 L 45 L 49 L Pulse Rate [ Intra-Procedure ] Pulse Rate [ Post-Procedure] Pulse Rate [Pre -Procedure] Respiratory 11 L 22 22 Rate Respiratory Rate [Intra- Procedure] Respiratory Rate [Post- Procedure] Respiratory Rate [Pre- Procedure] Blood Pressure 67/38 84/44 86/47 Blood Pressure [Intra- Procedure] Blood Pressure [Post-Procedure ] Blood Pressure [Pre-Procedure] O2 Sat by Pulse 96 95 92 Oximetry O2 Sat by Pulse Oximetry [ Intra-Procedure ] O2 Sat by Pulse Oximetry [Post -Procedure] O2 Sat by Pulse Oximetry [Pre- Procedure] 12/29/18 12/29/18 12/29/18 03:30 03:37 03:45 Temperature Pulse Rate 48 L 49 L Pulse Rate [ Intra-Procedure ] Pulse Rate [ Post-Procedure] Pulse Rate [Pre -Procedure] Respiratory 22 22 Rate Respiratory Rate [Intra- Procedure] Respiratory Rate [Post- Procedure] Respiratory Rate [Pre- Procedure] Blood Pressure 100/52 95/48 Blood Pressure [Intra- Procedure] Blood Pressure [Post-Procedure ] Blood Pressure [Pre-Procedure] O2 Sat by Pulse 95 99 96 Oximetry O2 Sat by Pulse Oximetry [ Intra-Procedure ] O2 Sat by Pulse Oximetry [Post -Procedure] O2 Sat by Pulse Oximetry [Pre- Procedure] 12/29/18 12/29/18 12/29/18 04:16 04:30 04:45 Temperature Pulse Rate 45 L 49 L 54 L Pulse Rate [ Intra-Procedure ] Pulse Rate [ Post-Procedure] Pulse Rate [Pre -Procedure] Respiratory 22 22 22 Rate Respiratory Rate [Intra- Procedure] Respiratory Rate [Post- Procedure] Respiratory Rate [Pre- Procedure] Blood Pressure 149/71 142/69 145/71 Blood Pressure [Intra- Procedure] Blood Pressure [Post-Procedure ] Blood Pressure [Pre-Procedure] O2 Sat by Pulse 93 94 97 Oximetry O2 Sat by Pulse Oximetry [ Intra-Procedure ] O2 Sat by Pulse Oximetry [Post -Procedure] O2 Sat by Pulse Oximetry [Pre- Procedure] 12/29/18 12/29/18 12/29/18 05:00 05:05 05:10 Temperature Pulse Rate 49 L 56 L Pulse Rate [ 47 L Intra-Procedure ] Pulse Rate [ 47 L Post-Procedure] Pulse Rate [Pre 47 L -Procedure] Respiratory 22 Rate Respiratory 18 Rate [Intra- Procedure] Respiratory 18 Rate [Post- Procedure] Respiratory 18 Rate [Pre- Procedure] Blood Pressure 91/72 139/70 Blood Pressure 86/47 [Intra- Procedure] Blood Pressure 99/51 [Post-Procedure ] Blood Pressure 91/58 [Pre-Procedure] O2 Sat by Pulse 94 Oximetry O2 Sat by Pulse 100 Oximetry [ Intra-Procedure ] O2 Sat by Pulse 100 Oximetry [Post -Procedure] O2 Sat by Pulse 100 Oximetry [Pre- Procedure] 12/29/18 12/29/18 12/29/18 05:15 05:30 08:00 Temperature 98.5 F Pulse Rate 51 L 48 L 45 L Pulse Rate [ Intra-Procedure ] Pulse Rate [ Post-Procedure] Pulse Rate [Pre -Procedure] Respiratory 22 22 Rate Respiratory Rate [Intra- Procedure] Respiratory Rate [Post- Procedure] Respiratory Rate [Pre- Procedure] Blood Pressure 116/57 107/55 Blood Pressure [Intra- Procedure] Blood Pressure [Post-Procedure ] Blood Pressure [Pre-Procedure] O2 Sat by Pulse 96 98 96 Oximetry O2 Sat by Pulse Oximetry [ Intra-Procedure ] O2 Sat by Pulse Oximetry [Post -Procedure] O2 Sat by Pulse Oximetry [Pre- Procedure] 12/29/18 10:25 Temperature Pulse Rate 54 L Pulse Rate [ Intra-Procedure ] Pulse Rate [ Post-Procedure] Pulse Rate [Pre -Procedure] Respiratory Rate Respiratory Rate [Intra- Procedure] Respiratory Rate [Post- Procedure] Respiratory Rate [Pre- Procedure] Blood Pressure Blood Pressure [Intra- Procedure] Blood Pressure [Post-Procedure ] Blood Pressure [Pre-Procedure] O2 Sat by Pulse 96 Oximetry O2 Sat by Pulse Oximetry [ Intra-Procedure ] O2 Sat by Pulse Oximetry [Post -Procedure] O2 Sat by Pulse Oximetry [Pre- Procedure] - Laboratory Findings CBC and BMP: 12/29/18 12:51 12/29/18 12:51 Abnormal Lab Findings: Abnormal Labs 12/28/18 12/28/18 12/28/18 23:58 23:58 23:58 RBC 2.24 L Hgb 6.7 L Hct 20.9 L RDW 16.4 H Plt Count 99 L Lymph % (Auto) 10.7 L [place] % (Auto) 7.9 H Lymph # 0.6 L [place] # Seg Neutrophils % 80.7 H D-Dimer 815.50 H POC ABG pH POC ABG pCO2 Sodium 148 H Potassium 2.3 L* Chloride 128.4 H Carbon Dioxide 12 L BUN Creatinine 0.4 L Glucose POC Glucose Calcium 5.0 L* ALT < 5 L Total Creatine Kinase 44 L CK-MB (CK-2) CK-MB (CK-2) Rel Index 4.3 H Troponin T NT-Pro-B Natriuret Pep Total Protein 2.3 L Albumin 1.1 L HDL Cholesterol Ur Specific [place] Urine WBC (Auto) Crossmatch 12/28/18 12/29/18 12/29/18 23:58 00:27 01:53 RBC Hgb Hct RDW Plt Count Lymph % (Auto) [place] % (Auto) Lymph # [place] # Seg Neutrophils % D-Dimer POC ABG pH 7.169 L POC ABG pCO2 Sodium Potassium Chloride Carbon Dioxide BUN Creatinine Glucose POC Glucose Calcium ALT Total Creatine Kinase CK-MB (CK-2) CK-MB (CK-2) Rel Index Troponin T NT-Pro-B Natriuret Pep 1209 H Total Protein Albumin HDL Cholesterol Ur Specific [place] Urine WBC (Auto) Crossmatch See Detail 12/29/18 12/29/18 12/29/18 03:00 05:02 08:34 RBC Hgb Hct RDW Plt Count Lymph % (Auto) [place] % (Auto) Lymph # [place] # Seg Neutrophils % D-Dimer POC ABG pH 7.225 L POC ABG pCO2 57.9 H Sodium Potassium Chloride Carbon Dioxide BUN Creatinine Glucose POC Glucose Calcium ALT Total Creatine Kinase 344 H CK-MB (CK-2) 7.9 H CK-MB (CK-2) Rel Index Troponin T 0.103 H* D NT-Pro-B Natriuret Pep Total Protein Albumin HDL Cholesterol 34 L Ur Specific [place] 1.033 H Urine WBC (Auto) 31.0 H Crossmatch 12/29/18 12/29/18 12/29/18 08:34 08:53 12:51 RBC Hgb Hct RDW Plt Count Lymph % (Auto) [place] % (Auto) Lymph # [place] # Seg Neutrophils % D-Dimer POC ABG pH POC ABG pCO2 Sodium Potassium 5.7 H D Chloride Carbon Dioxide BUN 21 H Creatinine Glucose 124 H POC Glucose 119 H Calcium ALT Total Creatine Kinase CK-MB (CK-2) 10.5 H CK-MB (CK-2) Rel Index Troponin T NT-Pro-B Natriuret Pep Total Protein Albumin HDL Cholesterol Ur Specific [place] Urine WBC (Auto) Crossmatch 12/29/18 12/29/18 12:51 12:51 RBC Hgb Hct RDW 16.0 H Plt Count Lymph % (Auto) [place] % (Auto) 13.3 H Lymph # [place] # 1.4 H Seg Neutrophils % D-Dimer POC ABG pH POC ABG pCO2 Sodium Potassium Chloride Carbon Dioxide 19 L BUN 21 H Creatinine Glucose 116 H POC Glucose Calcium ALT Total Creatine Kinase CK-MB (CK-2) CK-MB (CK-2) Rel Index Troponin T NT-Pro-B Natriuret Pep Total Protein Albumin HDL Cholesterol Ur Specific [place] Urine WBC (Auto) Crossmatch
[2018-12-29] MEDS ORDERED: ATROPINE 0.1% (CARDIAC) ONE (14:20)
[2018-12-29] MEDS ORDERED: AMIDATE IV ONE (15:17)
[2018-12-29] MEDS ORDERED: AMIDATE ONE (15:17)
[2018-12-29] MEDS ORDERED: LEVAQUIN 500MG/100ML 500 MG/100 ML BAG IV SCH (16:00)
--- NOTE | 2018-12-29 16:17 | Consultation ---
History of Present Illness Consult date: 12/29/18 Consult reason: elevated troponin, hypotension History of present illness: Patient is a 73-year-old male presents emergency room via EMS for respiratory arrest.. Report received from EMS. EMS states that the patient was found down with agonal breathing. Patient was given respiratory support via nasal trumpet and BVM. Patient had a pulse entire time. Report received from family. Family states the patient has been having increased shortness of breath over the past 2 weeks. states that the patient went to bed and when she went up to check on him 10 minutes later the patient was unresponsive with shallow breathing. Cardiology consult because of elevated troponins/low B.P requiring Levophed. Medications and Allergies Allergies Allergy/AdvReac Type Severity Reaction Status Date / Time Penicillins Allergy Unknown Verified 12/29/18 04:18 Active Meds: Active Medications Acetaminophen (Tylenol) 650 mg MA Q4H PRN PRN Reason: Fever >101 Dextrose (D50w (25gm) Syringe) 50 ml IV PRN PRN PRN Reason: Hypoglycemia Heparin Sodium (Porcine) (Heparin) 5,000 unit SUB-Q Q12HR [facility] Last Admin: 12/29/18 11:00 Dose: 5,000 unit Documented by: Fentanyl Citrate (Fentanyl Drip Premix) 2,000 mcg in 100 mls @ 7.25 mls/hr IV TITR [facility]; Protocol Last Admin: 12/29/18 13:47 Dose: 3 mcg/kg/hr, 21.75 mls/hr Documented by: Norepinephrine (Levophed Drip 4 Mg/Ns 250 Ml) 4 mg in 250 mls @ 7.5 mls/hr IV TITR ONE; Protocol Stop: 12/30/18 12:18 Last Titration: 12/29/18 13:00 Dose: 10 mcg/min, 37.5 mls/hr Documented by: Sodium Chloride (Nacl 0.9% 1000 Ml) 1,000 mls @ 100 mls/hr IV DIRECT [facility] Propofol (Diprivan 10 Mg/Ml) 1,000 mg in 100 mls @ 4.35 mls/hr IV TITR [facility]; Protocol Levetiracetam 500 mg/ Sodium (Chloride) 105 mls @ 400 mls/hr IV Q12HR [facility] Aztreonam (Azactam/Ns 1 Gm/50 Ml) 1 gm in 50 mls @ 50 mls/hr IV Q12H [facility] Stop: 01/03/19 16:59 Levofloxacin/Dextrose (Levaquin 500mg/100ml) 500 mg in 100 mls @ 100 mls/hr IV Q24H [facility]; Protocol Insulin Human Regular (Humulin R) 0 units SUB-Q Q4H [facility]; Protocol Last Admin: 12/29/18 12:05 Dose: Not Given Documented by: Ondansetron HCl (Zofran) 4 mg IV Q8H PRN PRN Reason: Nausea And Vomiting Physical Examination Vital Signs Pulse Resp Pulse Ox 84 19 91 12/28/18 22:34 12/28/18 22:34 12/28/18 22:34 General appearance: no acute distress, other (intubated,on respirator.) HEENT: Positive: PERRL Cardiac: Positive: Reg Rate and Rhythm. Negative: Audible Murmur Lungs: Positive: Decreased Breath Sounds, Other (chest tube in place,right side.) Abdomen: Positive: Unremarkable Skin: Negative: Rash Extremities: Absent: edema Results 12/30/18 11:42 12/30/18 11:42 Cardiac Enzymes 12/28/18 12/29/18 12/29/18 Range/Units 23:58 08:34 12:51 AST 10 (5-40) units/L CK-MB (CK-2) 1.9 7.9 H 10.5 H (0.0-4.0) ng/mL Coagulation 12/29/18 Range/Units 01:51 PT 14.8 (12.2-14.9) Sec. INR 1.09 (0.87-1.13) APTT 26.9 (24.2-36.6) Sec. Lipids 12/29/18 Range/Units 08:34 Triglycerides 113 (2-149) mg/dL Cholesterol 120 (50-199) mg/dL HDL Cholesterol 34 L (40-59) mg/dL Cholesterol/HDL Ratio 3.52 % CBC 12/28/18 12/29/18 12/29/18 Range/Units 23:58 08:34 12:51 WBC 5.5 10.8 (4.5-11.0) K/mm3 RBC 2.24 L 4.79 (3.65-5.03) M/mm3 Hgb 6.7 L 13.7 D 13.9 (11.8-15.2) gm/dl Hct 20.9 L 43.3 D 42.9 (35.5-45.6) % Plt Count 99 L 196 (140-440) K/mm3 Lymph # 0.6 L 1.9 (1.2-5.4) K/mm3 [place] # 0.4 1.4 H (0.0-0.8) K/mm3 Eos # 0.0 0.1 (0.0-0.4) K/mm3 Baso # 0.0 0.0 (0.0-0.1) K/mm3 Comprehensive Metabolic Panel 12/28/18 12/29/18 12/29/18 Range/Units 23:58 08:53 12:51 Sodium 148 H 140 D 139 (137-145) mmol/L Potassium 2.3 L* 5.7 H D TNR (3.6-5.0) mmol/L Chloride 128.4 H 104.5 105.8 (98-107) mmol/L Carbon Dioxide 12 L 24 D 19 L (22-30) mmol/L BUN 9 21 H 21 H (9-20) mg/dL Creatinine 0.4 L 1.5 D 1.5 (0.8-1.5) mg/dL Glucose 99 124 H 116 H (75-100) mg/dL Calcium 5.0 L* 8.8 D 8.8 (8.4-10.2) mg/dL AST 10 (5-40) units/L ALT < 5 L (7-56) units/L Alkaline Phosphatase 35 (35-129) units/L Total Protein 2.3 L (6.3-8.2) g/dL Albumin 1.1 L (3.9-5) g/dL EKG interpretations - Telemetry EKG Rhythm: Sinus Rhythm AV and intraventricular conduction: 1 AV block, intraventricular conducti Repolarization changes or abnormalities: nonspecific abnormality, ST segment, and/or T wave Assessment and Plan History was obtained from patient's .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 Patient with huge right pleural effusion noted on CXR and CT underwent chest tube insertion and >1 litre of serosanguinous fluid drained out. B.P is still dependaent on Levophed,continue iv fluids and taper levophed as tolerated. Troponins are elevated ,but these are non specific findings ,doubt acute myocardial injury and CK and MB fractions are not suggesting muocardial injury,continue supportive rx. - Patient Problems (1) Hypotension Current Visit: Yes Status: Acute Qualifiers: Hypotension type: unspecified hypotension type Qualified Code(s): I95.9 - Hypotension, unspecified (2) Pleural effusion, right Current Visit: Yes Status: Acute (3) Respiratory failure Current Visit: Yes Status: Acute Qualifiers: Chronicity: acute Respiratory failure complication: hypoxia and hypercapnia Qualified Code(s): J96.01 - Acute respiratory failure with hypoxia; J96.02 - Acute respiratory failure with hypercapnia
--- NOTE | 2018-12-29 16:19 | XRay Report ---
PROCEDURE: XR CHEST 1V AP TECHNIQUE: Frontal chest radiograph. HISTORY: chest tube olacement COMPARISONS: 12/28/2018. FINDINGS: There has been placement of a right-sided thoracostomy tube. The tip projects within the bony thorax with the side port lying outside of the bony thorax. Unchanged median sternotomy wires. The endotrach eal tube tip projects in the mid to upper thoracic trachea. The enteric tube tip is not definitively seen and likely lies off the study. Unchanged cardiomegaly. Improved patchy right pulmonary opacities. Worsened left lower lobe atelectasis is noted. Decreased size of the large right pleural effusion with only a small amount of residual right-sided p leural fluid. No pneumothorax. No acute osseous abnormality. IMPRESSION: 1. Placement of a right-sided thoracostomy tube with the tip lying within the bony thorax and the rebecca e port projecting outside of the bony thorax. Significant decrease in size of the right pleural effus ion with only a small amount of right pleural fluid remaining. 2. Worsened left lower lobe atelectasis. This document is electronically signed by María Macias., December 29 2018 04:17:47 PM ET
[2018-12-29] MEDS: NACL 0.9% 1000 ML 1,000 ML IV SCH (16:24)
[2018-12-29 16:32] LABS: Albumin 3.1 g/dL (3.9-5); Calcium 8.9 mg/dL (8.4-10.2)
[2018-12-29] MEDS: AZACTAM/NS 1 GM/50 ML 1 GM/50 ML VIAL IV SCH (16:45)
--- NOTE | 2018-12-29 17:01 | XRay Report ---
PROCEDURE: XR CHEST 1V AP TECHNIQUE: Chest radiograph single view. HISTORY: Post Chest Tube insertion COMPARISONS: Chest x-ray December 29, 2018 . FINDINGS: Endotracheal tube tip 6.5 cm above the christina. NG tube with tip below diaphragm. Right chest tube adv anced. Tip medial right hemithorax. No pneumothorax. Cardiomegaly stable. Sternotomy reidentified. Bi lateral airspace disease stable.. IMPRESSION: Right chest tube advanced. No right pneumothorax.. This document is electronically signed by Ronny Mercado MD., December 29 2018 04:59:34 PM ET
[2018-12-29 17:48] LABS: Calcium 8.9 mg/dL (8.4-10.2)
--- NOTE | 2018-12-29 17:51 | Consultation ---
History of Present Illness Consult date: 12/29/18 Reason for consult: other (chest tube placement) Requesting physician: DANYEL WILSON Chief complaint: Large right pleural effusion - History of present illness History of present illness: 73yo M presented to ED with respiratory arrest. Admitted to ICU. We are asked to see patient for drainage of a large right pleural effusion. Etiology unclear. No recent procedures. Pt unable to give any info. History obtained from family, chart, and team. Past History Past Medical History: acute NH (h/o), arthritis, CAD, diabetes, hypertension, other (restless leg syndrome) Past Surgical History: cholecystectomy (open), CABG, Other (Left CEA. ) Social history: denies: smoking, alcohol abuse Family history: no significant family history Medications and Allergies Allergies Allergy/AdvReac Type Severity Reaction Status Date / Time Penicillins Allergy Unknown Verified 12/29/18 04:18 Active Meds: Active Medications Acetaminophen (Tylenol) 650 mg [place] Q4H PRN PRN Reason: Fever >101 Dextrose (D50w (25gm) Syringe) 50 ml IV PRN PRN PRN Reason: Hypoglycemia Heparin Sodium (Porcine) (Heparin) 5,000 unit SUB-Q Q12HR [facility] Last Admin: 12/29/18 11:00 Dose: 5,000 unit Documented by: Fentanyl Citrate (Fentanyl Drip Premix) 2,000 mcg in 100 mls @ 7.25 mls/hr IV TITR [facility]; Protocol Last Admin: 12/29/18 13:47 Dose: 3 mcg/kg/hr, 21.75 mls/hr Documented by: Norepinephrine (Levophed Drip 4 Mg/Ns 250 Ml) 4 mg in 250 mls @ 7.5 mls/hr IV TITR ONE; Protocol Stop: 12/30/18 12:18 Last Titration: 12/29/18 13:00 Dose: 10 mcg/min, 37.5 mls/hr Documented by: Sodium Chloride (Nacl 0.9% 1000 Ml) 1,000 mls @ 100 mls/hr IV DIRECT [facility] Last Admin: 12/29/18 16:24 Dose: 100 mls/hr Documented by: Propofol (Diprivan 10 Mg/Ml) 1,000 mg in 100 mls @ 4.35 mls/hr IV TITR [facility]; Protocol Levetiracetam 500 mg/ Sodium (Chloride) 105 mls @ 400 mls/hr IV Q12HR [facility] Aztreonam (Azactam/Ns 1 Gm/50 Ml) 1 gm in 50 mls @ 50 mls/hr IV Q12H [facility] Stop: 01/03/19 16:59 Last Admin: 12/29/18 16:45 Dose: 50 mls/hr Documented by: Levofloxacin/Dextrose (Levaquin 500mg/100ml) 500 mg in 100 mls @ 100 mls/hr IV Q24H [facility]; Protocol Last Admin: 12/29/18 16:30 Dose: 100 mls/hr Documented by: Insulin Human Regular (Humulin R) 0 units SUB-Q Q4H [facility]; Protocol Last Admin: 12/29/18 16:26 Dose: Not Given Documented by: Ondansetron HCl (Zofran) 4 mg IV Q8H PRN PRN Reason: Nausea And Vomiting Review of Systems ROS unobtainable: due to endotracheal tube, due to mental status Exam Vital Signs Pulse Resp Pulse Ox 84 19 91 12/28/18 22:34 12/28/18 22:34 12/28/18 22:34 - General physical appearance Positive: no distress, no pain, obese - Respiratory absent breath sounds: right - Cardiovascular Rhythm: regular - Abdomen Abdomen: Present: soft - Integumentary no rash, no growths, no abnormal pigmentation Results - Labs 12/29/18 12:51 12/29/18 16:50 Abnormal lab results 12/28/18 12/28/18 12/28/18 Range/Units 23:58 23:58 23:58 RBC 2.24 L (3.65-5.03) M/mm3 Hgb 6.7 L (11.8-15.2) gm/dl Hct 20.9 L (35.5-45.6) % RDW 16.4 H (13.2-15.2) % Plt Count 99 L (140-440) K/mm3 Lymph % (Auto) 10.7 L (13.4-35.0) % [place] % (Auto) 7.9 H (0.0-7.3) % Lymph # 0.6 L (1.2-5.4) K/mm3 [place] # (0.0-0.8) K/mm3 Seg Neutrophils % 80.7 H (40.0-70.0) % D-Dimer 815.50 H (0-234) ng/mlDDU POC ABG pH (7.35-7.45) POC ABG pCO2 (35-45) POC ABG pO2 (80-105) Sodium 148 H (137-145) mmol/L Potassium 2.3 L* (3.6-5.0) mmol/L Chloride 128.4 H (98-107) mmol/L Carbon Dioxide 12 L (22-30) mmol/L BUN (9-20) mg/dL Creatinine 0.4 L (0.8-1.5) mg/dL Glucose (75-100) mg/dL POC Glucose (70-105) Lactic Acid (0.7-2.0) mmol/L Calcium 5.0 L* (8.4-10.2) mg/dL Total Bilirubin (0.1-1.2) mg/dL AST (5-40) units/L ALT < 5 L (7-56) units/L Lactate Dehydrogenase (91-180) units/L Total Creatine Kinase 44 L (55-170) units/L CK-MB (CK-2) (0.0-4.0) ng/mL CK-MB (CK-2) Rel Index 4.3 H (0-4) Troponin T (0.00-0.029) ng/mL NT-Pro-B Natriuret Pep (0-900) pg/mL Total Protein 2.3 L (6.3-8.2) g/dL Albumin 1.1 L (3.9-5) g/dL HDL Cholesterol (40-59) mg/dL Ur Specific [place] (1.003-1.030) Urine WBC (Auto) (0.0-6.0) /HPF Crossmatch 12/28/18 12/29/18 12/29/18 Range/Units 23:58 00:27 01:53 RBC (3.65-5.03) M/mm3 Hgb (11.8-15.2) gm/dl Hct (35.5-45.6) % RDW (13.2-15.2) % Plt Count (140-440) K/mm3 Lymph % (Auto) (13.4-35.0) % [place] % (Auto) (0.0-7.3) % Lymph # (1.2-5.4) K/mm3 [place] # (0.0-0.8) K/mm3 Seg Neutrophils % (40.0-70.0) % D-Dimer (0-234) ng/mlDDU POC ABG pH 7.169 L (7.35-7.45) POC ABG pCO2 (35-45) POC ABG pO2 (80-105) Sodium (137-145) mmol/L Potassium (3.6-5.0) mmol/L Chloride (98-107) mmol/L Carbon Dioxide (22-30) mmol/L BUN (9-20) mg/dL Creatinine (0.8-1.5) mg/dL Glucose (75-100) mg/dL POC Glucose (70-105) Lactic Acid (0.7-2.0) mmol/L Calcium (8.4-10.2) mg/dL Total Bilirubin (0.1-1.2) mg/dL AST (5-40) units/L ALT (7-56) units/L Lactate Dehydrogenase (91-180) units/L Total Creatine Kinase (55-170) units/L CK-MB (CK-2) (0.0-4.0) ng/mL CK-MB (CK-2) Rel Index (0-4) Troponin T (0.00-0.029) ng/mL NT-Pro-B Natriuret Pep 1209 H (0-900) pg/mL Total Protein (6.3-8.2) g/dL Albumin (3.9-5) g/dL HDL Cholesterol (40-59) mg/dL Ur Specific [place] (1.003-1.030) Urine WBC (Auto) (0.0-6.0) /HPF Crossmatch See Detail 12/29/18 12/29/18 12/29/18 Range/Units 03:00 05:02 08:34 RBC (3.65-5.03) M/mm3 Hgb (11.8-15.2) gm/dl Hct (35.5-45.6) % RDW (13.2-15.2) % Plt Count (140-440) K/mm3 Lymph % (Auto) (13.4-35.0) % [place] % (Auto) (0.0-7.3) % Lymph # (1.2-5.4) K/mm3 [place] # (0.0-0.8) K/mm3 Seg Neutrophils % (40.0-70.0) % D-Dimer (0-234) ng/mlDDU POC ABG pH 7.225 L (7.35-7.45) POC ABG pCO2 57.9 H (35-45) POC ABG pO2 (80-105) Sodium (137-145) mmol/L Potassium (3.6-5.0) mmol/L Chloride (98-107) mmol/L Carbon Dioxide (22-30) mmol/L BUN (9-20) mg/dL Creatinine (0.8-1.5) mg/dL Glucose (75-100) mg/dL POC Glucose (70-105) Lactic Acid (0.7-2.0) mmol/L Calcium (8.4-10.2) mg/dL Total Bilirubin (0.1-1.2) mg/dL AST (5-40) units/L ALT (7-56) units/L Lactate Dehydrogenase (91-180) units/L Total Creatine Kinase 344 H (55-170) units/L CK-MB (CK-2) 7.9 H (0.0-4.0) ng/mL CK-MB (CK-2) Rel Index (0-4) Troponin T 0.103 H* D (0.00-0.029) ng/mL NT-Pro-B Natriuret Pep (0-900) pg/mL Total Protein (6.3-8.2) g/dL Albumin (3.9-5) g/dL HDL Cholesterol 34 L (40-59) mg/dL Ur Specific [place] 1.033 H (1.003-1.030) Urine WBC (Auto) 31.0 H (0.0-6.0) /HPF Crossmatch 12/29/18 12/29/18 12/29/18 Range/Units 08:34 08:53 12:51 RBC (3.65-5.03) M/mm3 Hgb (11.8-15.2) gm/dl Hct (35.5-45.6) % RDW (13.2-15.2) % Plt Count (140-440) K/mm3 Lymph % (Auto) (13.4-35.0) % [place] % (Auto) (0.0-7.3) % Lymph # (1.2-5.4) K/mm3 [place] # (0.0-0.8) K/mm3 Seg Neutrophils % (40.0-70.0) % D-Dimer (0-234) ng/mlDDU POC ABG pH (7.35-7.45) POC ABG pCO2 (35-45) POC ABG pO2 (80-105) Sodium (137-145) mmol/L Potassium 5.7 H D (3.6-5.0) mmol/L Chloride (98-107) mmol/L Carbon Dioxide (22-30) mmol/L BUN 21 H (9-20) mg/dL Creatinine (0.8-1.5) mg/dL Glucose 124 H (75-100) mg/dL POC Glucose 119 H (70-105) Lactic Acid (0.7-2.0) mmol/L Calcium (8.4-10.2) mg/dL Total Bilirubin (0.1-1.2) mg/dL AST (5-40) units/L ALT (7-56) units/L Lactate Dehydrogenase (91-180) units/L Total Creatine Kinase 837 H (55-170) units/L CK-MB (CK-2) 10.5 H (0.0-4.0) ng/mL CK-MB (CK-2) Rel Index (0-4) Troponin T 0.084 H (0.00-0.029) ng/mL NT-Pro-B Natriuret Pep (0-900) pg/mL Total Protein (6.3-8.2) g/dL Albumin (3.9-5) g/dL HDL Cholesterol (40-59) mg/dL Ur Specific [place] (1.003-1.030) Urine WBC (Auto) (0.0-6.0) /HPF Crossmatch 12/29/18 12/29/18 12/29/18 Range/Units 12:51 12:51 15:02 RBC (3.65-5.03) M/mm3 Hgb (11.8-15.2) gm/dl Hct (35.5-45.6) % RDW 16.0 H (13.2-15.2) % Plt Count (140-440) K/mm3 Lymph % (Auto) (13.4-35.0) % [place] % (Auto) 13.3 H (0.0-7.3) % Lymph # (1.2-5.4) K/mm3 [place] # 1.4 H (0.0-0.8) K/mm3 Seg Neutrophils % (40.0-70.0) % D-Dimer (0-234) ng/mlDDU POC ABG pH (7.35-7.45) POC ABG pCO2 (35-45) POC ABG pO2 (80-105) Sodium (137-145) mmol/L Potassium 5.4 H (3.6-5.0) mmol/L Chloride (98-107) mmol/L Carbon Dioxide 19 L 17 L (22-30) mmol/L BUN 21 H 21 H (9-20) mg/dL Creatinine (0.8-1.5) mg/dL Glucose 116 H 115 H (75-100) mg/dL POC Glucose (70-105) Lactic Acid (0.7-2.0) mmol/L Calcium (8.4-10.2) mg/dL Total Bilirubin 1.50 H (0.1-1.2) mg/dL AST 43 H (5-40) units/L ALT (7-56) units/L Lactate Dehydrogenase 405 H (91-180) units/L Total Creatine Kinase (55-170) units/L CK-MB (CK-2) (0.0-4.0) ng/mL CK-MB (CK-2) Rel Index (0-4) Troponin T (0.00-0.029) ng/mL NT-Pro-B Natriuret Pep (0-900) pg/mL Total Protein 6.2 L D (6.3-8.2) g/dL Albumin 3.1 L (3.9-5) g/dL HDL Cholesterol (40-59) mg/dL Ur Specific [place] (1.003-1.030) Urine WBC (Auto) (0.0-6.0) /HPF Crossmatch 12/29/18 12/29/18 12/29/18 Range/Units 16:46 16:50 17:37 RBC (3.65-5.03) M/mm3 Hgb (11.8-15.2) gm/dl Hct (35.5-45.6) % RDW (13.2-15.2) % Plt Count (140-440) K/mm3 Lymph % (Auto) (13.4-35.0) % [place] % (Auto) (0.0-7.3) % Lymph # (1.2-5.4) K/mm3 [place] # (0.0-0.8) K/mm3 Seg Neutrophils % (40.0-70.0) % D-Dimer (0-234) ng/mlDDU POC ABG pH (7.35-7.45) POC ABG pCO2 (35-45) POC ABG pO2 248 H (80-105) Sodium (137-145) mmol/L Potassium (3.6-5.0) mmol/L Chloride (98-107) mmol/L Carbon Dioxide 21 L (22-30) mmol/L BUN 21 H (9-20) mg/dL Creatinine (0.8-1.5) mg/dL Glucose 123 H (75-100) mg/dL POC Glucose (70-105) Lactic Acid 2.70 H* (0.7-2.0) mmol/L Calcium (8.4-10.2) mg/dL Total Bilirubin (0.1-1.2) mg/dL AST (5-40) units/L ALT (7-56) units/L Lactate Dehydrogenase (91-180) units/L Total Creatine Kinase (55-170) units/L CK-MB (CK-2) (0.0-4.0) ng/mL CK-MB (CK-2) Rel Index (0-4) Troponin T (0.00-0.029) ng/mL NT-Pro-B Natriuret Pep (0-900) pg/mL Total Protein (6.3-8.2) g/dL Albumin (3.9-5) g/dL HDL Cholesterol (40-59) mg/dL Ur Specific [place] (1.003-1.030) Urine WBC (Auto) (0.0-6.0) /HPF Crossmatch Diabetes panel 12/28/18 12/29/18 12/29/18 Range/Units 23:58 08:34 08:53 Sodium 148 H 140 D (137-145) mmol/L Potassium 2.3 L* 5.7 H D (3.6-5.0) mmol/L Chloride 128.4 H 104.5 (98-107) mmol/L Carbon Dioxide 12 L 24 D (22-30) mmol/L BUN 9 21 H (9-20) mg/dL Creatinine 0.4 L 1.5 D (0.8-1.5) mg/dL Glucose 99 124 H (75-100) mg/dL Calcium 5.0 L* 8.8 D (8.4-10.2) mg/dL AST 10 (5-40) units/L ALT < 5 L (7-56) units/L Alkaline Phosphatase 35 (35-129) units/L Total Protein 2.3 L (6.3-8.2) g/dL Albumin 1.1 L (3.9-5) g/dL Triglycerides 113 (2-149) mg/dL HDL Cholesterol 34 L (40-59) mg/dL 12/29/18 12/29/18 12/29/18 Range/Units 12:51 15:02 16:50 Sodium 139 140 142 (137-145) mmol/L Potassium TNR 5.4 H 4.6 (3.6-5.0) mmol/L Chloride 105.8 106.7 106.6 (98-107) mmol/L Carbon Dioxide 19 L 17 L 21 L (22-30) mmol/L BUN 21 H 21 H 21 H (9-20) mg/dL Creatinine 1.5 1.4 1.5 (0.8-1.5) mg/dL Glucose 116 H 115 H 123 H (75-100) mg/dL Calcium 8.8 8.9 8.9 (8.4-10.2) mg/dL AST 43 H (5-40) units/L ALT 17 (7-56) units/L Alkaline Phosphatase 84 (35-129) units/L Total Protein 6.2 L D (6.3-8.2) g/dL Albumin 3.1 L (3.9-5) g/dL Triglycerides (2-149) mg/dL HDL Cholesterol (40-59) mg/dL Calcium panel 12/28/18 12/29/18 12/29/18 Range/Units 23:58 08:53 12:51 Calcium 5.0 L* 8.8 D 8.8 (8.4-10.2) mg/dL Albumin 1.1 L (3.9-5) g/dL 12/29/18 12/29/18 Range/Units 15:02 16:50 Calcium 8.9 8.9 (8.4-10.2) mg/dL Albumin 3.1 L (3.9-5) g/dL Pituitary panel 12/28/18 12/29/18 12/29/18 Range/Units 23:58 08:53 12:51 Sodium 148 H 140 D 139 (137-145) mmol/L Potassium 2.3 L* 5.7 H D TNR (3.6-5.0) mmol/L Chloride 128.4 H 104.5 105.8 (98-107) mmol/L Carbon Dioxide 12 L 24 D 19 L (22-30) mmol/L BUN 9 21 H 21 H (9-20) mg/dL Creatinine 0.4 L 1.5 D 1.5 (0.8-1.5) mg/dL Glucose 99 124 H 116 H (75-100) mg/dL Calcium 5.0 L* 8.8 D 8.8 (8.4-10.2) mg/dL 12/29/18 12/29/18 Range/Units 15:02 16:50 Sodium 140 142 (137-145) mmol/L Potassium 5.4 H 4.6 (3.6-5.0) mmol/L Chloride 106.7 106.6 (98-107) mmol/L Carbon Dioxide 17 L 21 L (22-30) mmol/L BUN 21 H 21 H (9-20) mg/dL Creatinine 1.4 1.5 (0.8-1.5) mg/dL Glucose 115 H 123 H (75-100) mg/dL Calcium 8.9 8.9 (8.4-10.2) mg/dL Adrenal panel 12/28/18 12/29/18 12/29/18 Range/Units 23:58 08:53 12:51 Sodium 148 H 140 D 139 (137-145) mmol/L Potassium 2.3 L* 5.7 H D TNR (3.6-5.0) mmol/L Chloride 128.4 H 104.5 105.8 (98-107) mmol/L Carbon Dioxide 12 L 24 D 19 L (22-30) mmol/L BUN 9 21 H 21 H (9-20) mg/dL Creatinine 0.4 L 1.5 D 1.5 (0.8-1.5) mg/dL Glucose 99 124 H 116 H (75-100) mg/dL Calcium 5.0 L* 8.8 D 8.8 (8.4-10.2) mg/dL Total Bilirubin 0.50 (0.1-1.2) mg/dL AST 10 (5-40) units/L ALT < 5 L (7-56) units/L Alkaline Phosphatase 35 (35-129) units/L Total Protein 2.3 L (6.3-8.2) g/dL Albumin 1.1 L (3.9-5) g/dL 12/29/18 12/29/18 Range/Units 15:02 16:50 Sodium 140 142 (137-145) mmol/L Potassium 5.4 H 4.6 (3.6-5.0) mmol/L Chloride 106.7 106.6 (98-107) mmol/L Carbon Dioxide 17 L 21 L (22-30) mmol/L BUN 21 H 21 H (9-20) mg/dL Creatinine 1.4 1.5 (0.8-1.5) mg/dL Glucose 115 H 123 H (75-100) mg/dL Calcium 8.9 8.9 (8.4-10.2) mg/dL Total Bilirubin 1.50 H (0.1-1.2) mg/dL AST 43 H (5-40) units/L ALT 17 (7-56) units/L Alkaline Phosphatase 84 (35-129) units/L Total Protein 6.2 L D (6.3-8.2) g/dL Albumin 3.1 L (3.9-5) g/dL - Imaging Chest x-ray: report reviewed, image reviewed CT scan - chest: report reviewed, image reviewed Assessment and Plan - Patient Problems (1) Pleural effusion, right Current Visit: Yes Status: Acute Plan to address problem: Pt with large right pleural effusion with significant compression of right lung. Pt in need of chest tube placement. Discussed with family. Procedure, risks, benefits were discussed. All questions were answered. Consent was obtained. Plan is to place the right chest tube today. Time=30min
--- NOTE | 2018-12-29 18:06 | Procedure Note ---
Date of procedure: 12/29/18 Pre-op diagnosis: large right pleural effusion Post-op diagnosis: same Procedure: Right chest tube placement. Conscious sedation for 30 minutes. Consent was obtained. Timeout was performed. Sterile prep and drape was done. Patient was positioned with the right side elevated. Landmarks were identified. At the level of the right nipple along the anterior axillary line, this area was anesthetized with 1% lidocaine. Oblique incision was made. Blunt dissection was carried on to the chest wall. Going above the rib edge, pleural entry was made. Chest tube was inserted. Extra time was required do to this due to the patient's morbid obesity. The chest wall was very thick. There was a large amount of very thin, orangeish fluid that was draining. Most of the fluid drained onto the bed and floor. Chest tube was secured. Chest x-ray showed the [place] eye to be in the subcutaneous tissue. Area was re-prepped. Chest tube was advanced to 16 cm. Initially we met resistance during the 1st attempt. During this attempt I was able to advance further. Chest tube was resecur D. dressings were placed. Patient tolerated the procedure well. All counts are correct. Chest x-ray showed the centerline to be within the thoracic cavity. Family was updated. They were appreciative. Patient was stable in ICU. Findings: large amount of thin, orange fluid Implants: 32Fr Chest Tube Anesthesia: MAC, local Surgeon: REYNA KEYES Estimated blood loss: minimal Pathology: list (specimen cup of pleural fluid) Specimen disposition: to lab Condition: stable Disposition: ICU
--- NOTE | 2018-12-29 20:03 | Consultation ---
PULMONARY CRITICAL CARE CONSULTATION NOTE CONSULTING PHYSICIAN: Edward Jaramillo MD REASON FOR CONSULTATION: Acute hypoxemic respiratory failure, on mechanical ventilatory support. Right lung collapse. CHIEF COMPLAINT AND HISTORY OF PRESENT ILLNESS: The patient is a 73-year-old male with past medical history significant amongst other things for a diagnosis of morbid obesity and diabetes as well as restless legs syndrome, came into the hospital, brought into the Emergency Room via EMS for reported cardiopulmonary arrest. He never lost his pulse. He was found down with agonal breathing. He was brought into the ER with a nasal trumpet and bag valve mask ventilation. He reportedly has had increasing shortness of breath over a couple of weeks. He saw a physician in the community about a month ago according to the and was told that there was nothing wrong. They did not do a chest x-ray at that time according to her. Yesterday, he went into the room and when his went to check on him about 10 minutes later, he was unresponsive with agonal breathing. In the ER, the patient was emergently intubated, placed on the mechanical ventilator amongst other things. He has required vasopressor support since then. When I stopped by to see him, he was resting in bed. He was on a fentanyl drip, I believe at about 3 mcg/kg per hour. He was arousable, nodded his head no to the pain question, followed commands appropriately. According to his , he has not had any episodes of vomiting or overt aspiration over the past few weeks. This really is as much of the history of presentation as I have. PAST MEDICAL HISTORY: Again, according to the records, he is definitely morbidly obese. He also has a history of hypertension, coronary artery disease, diabetes, arthritis, and restless legs syndrome. PAST SURGICAL HISTORY: He has had coronary artery bypass grafting and according to his , he has had his gallbladder removed. MEDICATIONS: He was on at the time I stopped by to see him were reviewed. Pertinent medications include the following: Tylenol 650 mg per rectum q.4h. p.r.n. fevers greater than 101, the fentanyl drip was going as mentioned, heparin 5000 units subQ q.12, insulin via sliding scale, Keppra 500 mg IV q.12 hours, Levophed drip was going at 10 mcg per minute, Zofran 4 mg IV q.8 hours p.r.n. nausea and vomiting, propofol drip was ordered, but not yet hanging. He received atropine, calcium chloride in the Emergency Room. Again, I do not have any record of actual CPR. ALLERGIES: PENICILLINS, nature of this allergy is unknown. DIET: Morbidly obese, acute weight loss or gain history is unknown. BMI of 47.2. FAMILY AND SOCIAL HISTORY: Apparently lives in the community. He is described as a never smoker. Alcohol, illicit drug use or abuse was denied. Otherwise, family history is nonsignificant. REVIEW OF SYSTEMS: Difficult to obtain secondary to his medical and mental condition. According to his and from as much as I can get from the patient, no gross hematochezia or melena. No gross hematuria, no hematemesis, no bloody tracheal secretions, no witnessed seizures since he has been in the hospital. had denied polydipsia, polyuria. Complete review of systems was difficult to obtain. Again, pertinent positives and/or negatives as in the body of history above, otherwise they are noncontributory. I should mention she denied any sick contacts and she denies any significant coughing or expectoration, just shortness of breath and dyspnea on exertion. PHYSICAL EXAMINATION: VITAL SIGNS: At presentation in the Emergency Room, initial temperature I see is 98.5. At presentation, his pulse was 84. It has been as low as 48. His respiratory rate at presentation was recorded as 19, blood pressure 137/72, oxygen sats were 94%. Inspired oxygen concentration at that time was not reported. When I stopped by to see him, he was on the mechanical ventilator, [facility]. He had a tidal volume of 550, PEEP of 8, set rate of 22 and 100% FiO2. GENERAL: Morbidly obese elderly looking male, normocephalic, on the mechanical ventilator with mildly increased respiratory effort. HEAD, EYES, EARS, NOSE AND THROAT: He is anicteric. No conjunctival erythema. Oropharynx is moist. Endotracheal tube is taped in place about 23 cm at the lips. He has a large neck with significant excess fat around the neck. I cannot tell if there is significant thyromegaly, no gross jugular venous distention. Again, endotracheal tube is taped around 22 cm at the lips. LUNGS: Auscultation of both lungs revealed significantly diminished bilateral air movement, but in particular absence of breath sounds, most of the right hemithorax. He does have some scant rhonchi on the left with faint expiratory wheezing. HEART: Heart sounds 1 and 2 are heard, regular rate and rhythm at the time of my evaluation, pulse is around 58. No rubs or murmurs. ABDOMEN: Soft, full, protuberant. Bowel sounds are positive, nontender. He has a scar in the right upper quadrant region. No palpable hepatosplenomegaly grossly. EXTREMITIES: Without overt digital clubbing or cyanosis. Trace edema. Pedal pulses palpable and strong bilaterally. NEUROLOGIC: Pupils are equal, round, reactive to light. Extraocular muscle movements are intact. He moves all 4 extremities spontaneously. No significant fasciculations or spasticity. SKIN: The skin is of normal turgor without overt cellulitis or rash in the areas examined. I could not examine his sacral region. LABORATORY DATA: From my review are as follows: Admission white cell count 5500 with a hemoglobin of 6.7, hematocrit of 20.9, platelet count was 99; however, repeat CBC shows a hemoglobin of 13.7. D-dimers were elevated at 815. Arterial blood gas at presentation showed a pH of 7.17, pCO2 was not recorded, pO2 was 98, that was on 100% FiO2. Most recent gas shows a pH of 7.23, pCO2 of 56, pO2 of 85 on the above-mentioned vent settings. Serum sodium was 148 at presentation with potassium of 2.3, chloride 128, bicarbonate was 12, BUN was 9, creatinine 0.4, glucose was 99. Lactic acid level was within normal limits. Calcium was low at 5.0. AST, ALT within normal limits. Troponin was 0.019. BNP 1209. Total protein was 2.3 with an albumin of 1.1. Urinalysis at that time was negative for leukocyte esterase and nitrites, 31 white cells per high power field with 4+ bacteremia. Urine drug screen was presumptive negative. I should mention that repeat BMP showed a serum potassium of 5.7 and I believe this is after some replacement of the initial 2.3; however, BUN is 21, creatinine is 1.5. MICROBIOLOGY STUDIES: No microbiology studies. X-ray was done. Chest x-ray at presentation essentially shows right lung whiteout. Endotracheal tube tip is at the right, little high at the upper borders of the clavicular heads. Suggestion of enlargement of the left main pulmonary artery trunk. A CT angiogram was done at presentation. I have reviewed it. I have also reviewed the radiologist's interpretation. The main finding, I do not see any gross filling defects in the major arteries consistent with a significant pulmonary emboli. He has a cutoff around the right main stem with collapse of the right lung. Both lung adair are reduced actually, but the whole right lung is collapsed. There is what appears to be a complex pleural effusion layering all the way up to the top of the chest wall of the lungs I should say, however, a little lower it looks more complex. There appears to be some flat density tissue involved. The left side, he has a small pleural effusion with left lower lobe mild atelectasis and mild mediastinal lipomatosis. No obvious endobronchial obstructing lesion is seen. No pneumothorax. ASSESSMENT AND PLAN: 1. Acute hypoxemic hypercapnic respiratory failure, on mechanical ventilation support. 2. Bilateral pleural effusions, complex looking on the right. 3. Right lung complete atelectasis. 4. Right pneumonia, appears to be community-acquired. 5. Severe sepsis with shock, on Levophed. 6. Anemia that is normocytic present at presentation; however, I think that may be an abnormal lab value. 7. Hypokalemia at presentation that may also be an abnormal lab value. 8. Hypocalcemia at presentation that may also be abnormal lab value. 9. Morbid obesity. 10. History of diabetes. 11. History of hypertension. 12. Restless legs syndrome. 13. Elevated D-dimer. PLAN: I do feel that the complex pleural effusion may be related to pneumonia that may have been responsible for his shortness of breath over the preceding few days; however, I cannot rule out a mass lesion in the complex collection that I see. The first order of things will be to try and get a small bore chest tube into the fluid, hook it up to suction, see how much of expansion we get but to send the fluid for studies including cytology. I will discuss with interventional radiologist as well as the general surgeon in case this is not possible to be done. As he is a complex patient, he cannot be transferred to the laborer livestock at this time due to his hemodynamic instability. I will complete the venous thromboembolic disorder workup with bilateral lower extremity Dopplers. I will be repeating both CBC and BMP. I fear that, we may be dealing with hyperkalemia at this time, some of it possibly iatrogenic based on replacement of the initial reading of 2.3. I have asked the nurse to hold any further IV replacement or oral replacement of potassium at this time until we get the repeat stat labs back. We will continue current ventilator settings, I will repeat his arterial blood gas and make adjustments from there. In the meantime, I will drop the FiO2 down to 80% and I will consider increasing the PEEP to about 10, but he is prehypotensive at this time, so I will hold on that until I reevaluate the arterial blood gas. I am going to empirically get two sets of blood cultures before beginning empiric Zosyn and Levaquin just to also cover atypicals. Gentle volume resuscitation will also be started. A 2D echocardiogram has been ordered. I have discussed with the freelance designer who does not think there is a significant acute coronary syndrome going on. We will continue to trend his cardiac enzymes though. Again, I note the elevated BNP. I will wait on the 2D echo results. In the meantime, I would just do conservative volume resuscitation. I will be trying to get a PICC line in as soon as we can and discontinue the right femoral access that was described. For now, we will continue the central vascular access in the right femoral region. He will be placed on GI prophylaxis. DVT prophylaxis will be continued. Vasopressors will be weaned to keep mean arterial pressures greater than or equal to about 65 mmHg. Flu and pneumonia vaccination will be addressed per protocol. Glycemic control will be via sliding scale insulin for a target blood glucose of about 140-180 mg/dL acutely. The pleural fluid will be sent for studies. I do feel ultimately once he is stabilized, he will need to be transferred to a center with the Cardiothoracic Surgery for evaluation and management of the complex lesion in the right hemothorax. Thank you very much for the consult. I have explained the care plan to his . She is in agreement at this point. We will follow along and make further recommendations as picture progresses/becomes clearer. The patient is critically ill, on life-sustaining interventions including vasopressors and mechanical ventilator support, at high risk for further deterioration, decompensation in the cardiopulmonary system including the risk of . We will continue his antiepileptic medication, Keppra for now. At this time, I have spent about 40-45 minutes of critical care time without overlap, but excluding any procedural time that may be necessary. [facility]# [id number] DIANA/GRISELDA RAMOS
[2018-12-29] MEDS: KEPPRA 500 MG in NACL 0.9% 100 ML IV SCH (22:00)
[2018-12-30] MEDS: fentaNYL DRIP Premix 2,000 MCG/100 ML BAG IV SCH ×2 (06:34→12:04)
[2018-12-30] MEDS: LEVOPHED DRIP 4 MG/NS 250 ML 4 MG/250 ML BAG IV SCH ×2 (06:37→14:29)
[2018-12-30] MEDS: AZACTAM/NS 1 GM/50 ML 1 GM/50 ML VIAL IV SCH (08:31)
[2018-12-30] MEDS: HumuLIN R SUB-Q SCH ×4 (08:32→18:13)
--- NOTE | 2018-12-30 08:57 | Progress Note ---
Assessment and Plan Assessment and plan: Patient is a 73-year-old male, with PMHx of mobid obesity, HTN, CAD, s/p IA, Seizure, admitted after spouse found him on the floor with agonal breathing 10 mins after he went to bed. EMS was called and transported to the hospital in full respiratory distress and was intubated in the ED for airway stablization and hypoxia CXR; right sided pleural effusion CT: no PE * Critical care, ID and cardiology consulted * Per family patient has been having 2 weeks increasing shortness of breath and also chronic bouts of hypotension * Large right sided pleural effuision noted on cxr requiring emergent chest tube placement * Concern if patient had seizure that led to being found on the floor so Neurology was consult * Appeared also septic on admission ?aspiration Acute Hypoxic Respiratory failure- On Mechanical Ventilation Seizure Disorder Large Right sided Pleural effusion- s/p chest tube, pending fluid analysis Shock syndrome questionable septic versus cardiogenic Hypokalemia Non ST elevated IA type II Presumed ischemic cardiomyopathy status post CABG Acute metabolic encephalopathy Hyponatremia History of CVA 2 years ago Plan Continue current ICU care VAP and aspiration precautions Continue abx, Follow cultures, and fluid analysis from Chest tube insertion ID consulted Family advised of findings Continue AED Remote PCN allergy dvt/gi prophy The high probability of a clinically significant, sudden or life threatening deterioration of the [NEURO, PULMONARY] system(s) required my full and direct attention, intervention and personal management. The aggregate critical care time was [55] minutes. This time is in addition to time spent performing reported procedures but includes the following: [X] Data Review and interpretation [X] Patient assessment and monitoring of vital signs [X] Documentation [X] Medication orders and management History Interval history: Patient seen and examined, family at bedside, chest tube draining, patient awake s to verbal stimuli, still on full mechanical ventilation for acute respiratory support. No fever noted. Nursing staff reported later in the day positive DVT on US Hospitalist Physical - Physical exam Narrative exam: VITAL SIGNS: Reviewed. GENERAL: The patient appeared well nourished and normally developed, morbidly obese, on full Mechanical ventilatory support, Vital signs as documented. HEAD: No signs of head trauma. EYES: Pupils are equal. Extraocular motions intact. EARS: Hearing grossly intact. MOUTH: Oropharynx is normal. NECK: No adenopathy, no JVD. Large and short CHEST: Chest with Diminished breath sounds bilaterally. No wheezes, rales, or rhonchi. Chest tube in place CARDIAC: Regular rate and rhythm. S1 and S2, without murmurs, gallops, or rubs. VASCULAR: +1 pitting Edema. Peripheral pulses normal and equal in all extremities. ABDOMEN: Soft, non tender and non distended. No rebound or guarding, and no masses palpated. Bowel Sounds normal. MUSCULOSKELETAL: Good range of motion of all major joints. Extremities without clubbing, cyanosis. +1 Pitting edema. NEUROLOGIC EXAM: Alert and oriented x 3 No focal sensory or strength deficits. Speech normal. Follows commands. PSYCHIATRIC: Mood anxious. SKIN: echymosis. - Constitutional Vitals: Temp Pulse Resp BP Pulse Ox 98.5 F 78 22 136/60 96 12/29/18 08:00 12/30/18 07:00 12/30/18 07:00 12/30/18 07:00 12/30/18 07:00 General appearance: Present: no acute distress, other (intubated,on respirator.) Results - Labs CBC & Chem 7: 12/31/18 05:30 12/31/18 05:30 Labs: Laboratory Last Values WBC 10.8 K/mm3 (4.5-11.0) 12/29/18 12:51 RBC 4.79 M/mm3 (3.65-5.03) 12/29/18 12:51 Hgb 13.9 gm/dl (11.8-15.2) 12/29/18 12:51 Hct 42.9 % (35.5-45.6) 12/29/18 12:51 MCV 90 fl (84-94) 12/29/18 12:51 MCH 29 pg (28-32) 12/29/18 12:51 MCHC 32 % (32-34) 12/29/18 12:51 RDW 16.0 % (13.2-15.2) H 12/29/18 12:51 Plt Count 196 K/mm3 (140-440) 12/29/18 12:51 Lymph % (Auto) 17.2 % (13.4-35.0) 12/29/18 12:51 [place] % (Auto) 13.3 % (0.0-7.3) H 12/29/18 12:51 Eos % (Auto) 1.3 % (0.0-4.3) 12/29/18 12:51 Baso % (Auto) 0.4 % (0.0-1.8) 12/29/18 12:51 Lymph # 1.9 K/mm3 (1.2-5.4) 12/29/18 12:51 [place] # 1.4 K/mm3 (0.0-0.8) H 12/29/18 12:51 Eos # 0.1 K/mm3 (0.0-0.4) 12/29/18 12:51 Baso # 0.0 K/mm3 (0.0-0.1) 12/29/18 12:51 Seg Neutrophils % 67.8 % (40.0-70.0) 12/29/18 12:51 Seg Neutrophils # 7.3 K/mm3 (1.8-7.7) 12/29/18 12:51 PT 14.8 Sec. (12.2-14.9) 12/29/18 01:51 INR 1.09 (0.87-1.13) 12/29/18 01:51 APTT 26.9 Sec. (24.2-36.6) 12/29/18 01:51 D-Dimer 815.50 ng/mlDDU (0-234) H 12/28/18 23:58 POC ABG pH 7.327 (7.35-7.45) L 12/30/18 04:43 POC ABG pCO2 41.2 (35-45) 12/30/18 04:43 POC ABG pO2 79 (80-105) L 12/30/18 04:43 POC ABG HCO3 21.6 (22-26 mml/L) 12/30/18 04:43 POC ABG Total CO2 23 (23-27mmol/L) 12/30/18 04:43 POC ABG O2 Sat 95 12/30/18 04:43 POC ABG Base Excess -4 ((-2) - (+3)mmol/L) 12/30/18 04:43 FiO2 50 % 12/30/18 04:43 Sodium 142 mmol/L (137-145) 12/29/18 16:50 Potassium 4.6 mmol/L (3.6-5.0) 12/29/18 16:50 Chloride 106.6 mmol/L (98-107) 12/29/18 16:50 Carbon Dioxide 21 mmol/L (22-30) L 12/29/18 16:50 Anion Gap 19 mmol/L 12/29/18 16:50 BUN 21 mg/dL (9-20) H 12/29/18 16:50 Creatinine 1.5 mg/dL (0.8-1.5) 12/29/18 16:50 Estimated GFR 46 ml/min 12/29/18 16:50 BUN/Creatinine Ratio 14 % 12/29/18 16:50 Glucose 123 mg/dL (75-100) H 12/29/18 16:50 POC Glucose 98 (70-105) 12/30/18 08:27 Lactic Acid 2.80 mmol/L (0.7-2.0) H* 12/29/18 21:36 Calcium 8.9 mg/dL (8.4-10.2) 12/29/18 16:50 Magnesium 2.10 mg/dL (1.7-2.3) 12/29/18 01:51 Total Bilirubin 1.50 mg/dL (0.1-1.2) H 12/29/18 15:02 AST 43 units/L (5-40) H 12/29/18 15:02 ALT 17 units/L (7-56) 12/29/18 15:02 Alkaline Phosphatase 84 units/L (35-129) 12/29/18 15:02 Lactate Dehydrogenase 405 units/L (91-180) H 12/29/18 15:02 Total Creatine Kinase 837 units/L (55-170) H 12/29/18 12:51 CK-MB (CK-2) 10.5 ng/mL (0.0-4.0) H 12/29/18 12:51 CK-MB (CK-2) Rel Index 1.2 (0-4) 12/29/18 12:51 Troponin T 0.084 ng/mL (0.00-0.029) H 12/29/18 12:51 C-Reactive Protein 2.80 mg/dL (0.00-1.30) H 12/29/18 16:46 NT-Pro-B Natriuret Pep 1209 pg/mL (0-900) H 12/28/18 23:58 Total Protein 6.2 g/dL (6.3-8.2) L D 12/29/18 15:02 Albumin 3.1 g/dL (3.9-5) L 12/29/18 15:02 Albumin/Globulin Ratio 1.0 % 12/29/18 15:02 Triglycerides 113 mg/dL (2-149) 12/29/18 08:34 Cholesterol 120 mg/dL (50-199) 12/29/18 08:34 LDL Cholesterol Direct 82 mg/dL (50-130) 12/29/18 08:34 HDL Cholesterol 34 mg/dL (40-59) L 12/29/18 08:34 Cholesterol/HDL Ratio 3.52 % 12/29/18 08:34 Urine Color Yolande (Yellow) 12/29/18 03:00 Urine Turbidity Cloudy (Clear) 12/29/18 03:00 Urine pH 5.0 (5.0-7.0) 12/29/18 03:00 Ur Specific Wilder 1.033 (1.003-1.030) H 12/29/18 03:00 Urine Protein >500 mg/dL (Negative) 12/29/18 03:00 Urine Glucose (UA) 150 mg/dL (Negative) 12/29/18 03:00 Urine Ketones Neg mg/dL (Negative) 12/29/18 03:00 Urine Blood Mod (Negative) 12/29/18 03:00 Urine Nitrite Neg (Negative) 12/29/18 03:00 Urine Bilirubin Neg (Negative) 12/29/18 03:00 Urine Urobilinogen < 2.0 mg/dL (<2.0) 12/29/18 03:00 Ur Leukocyte Esterase Neg (Negative) 12/29/18 03:00 Urine WBC (Auto) 31.0 /HPF (0.0-6.0) H 12/29/18 03:00 Urine RBC (Auto) 27.0 /HPF (0.0-6.0) 12/29/18 03:00 U Epithel Cells (Auto) 4.0 /HPF (0-13.0) 12/29/18 03:00 Urine Bacteria (Auto) 4+ /HPF (Negative) 12/29/18 03:00 Urine Mucus 3+ /HPF 12/29/18 03:00 Urine Opiates Screen Presumptive negative 12/29/18 03:00 Urine Methadone Screen Presumptive negative 12/29/18 03:00 Ur Barbiturates Screen Presumptive negative 12/29/18 03:00 Ur Phencyclidine Scrn Presumptive negative 12/29/18 03:00 Ur Amphetamines Screen Presumptive negative 12/29/18 03:00 U Benzodiazepines Scrn Presumptive negative 12/29/18 03:00 Urine Cocaine Screen Presumptive negative 12/29/18 03:00 U Marijuana (THC) Screen Presumptive negative 12/29/18 03:00 Drugs of Abuse Note Disclamer 12/29/18 03:00 Blood Type O POSITIVE 12/29/18 01:53 Antibody Screen Negative 12/29/18 01:53 Crossmatch See Detail 12/29/18 01:53 Active Medications - Current Medications Current Medications: Generic Name Dose Route Start Last Admin Trade Name Freq PRN Reason Stop Dose Admin Acetaminophen 650 mg 12/29/18 04:49 12/30/18 08:33 Tylenol IN 650 mg Q4H PRN Administration Fever >101 Dextrose 50 ml 12/29/18 04:47 D50w (25gm) Syringe IV PRN PRN Hypoglycemia Heparin Sodium (Porcine) 5,000 unit 12/29/18 10:00 12/29/18 22:00 Heparin SUB-Q Not Given Q12HR WENDY Fentanyl Citrate 2,000 mcg in 100 mls @ 7.25 mls/hr 12/28/18 23:45 12/30/18 06:34 Fentanyl Drip Premix IV 3 mcg/kg/hr TITR WENDY 21.75 mls/hr Administration Protocol 1 MCG/KG/HR Sodium Chloride 1,000 mls @ 100 mls/hr 12/29/18 05:00 12/29/18 16:24 Nacl 0.9% 1000 Ml IV 100 mls/hr DIRECT WENDY Administration Propofol 1,000 mg in 100 mls @ 4.35 mls/hr 12/29/18 07:00 Diprivan 10 Mg/Ml IV TITR WENDY Protocol 5 MCG/KG/MIN Levetiracetam 500 mg/ Sodium 105 mls @ 400 mls/hr 12/29/18 22:00 12/29/18 22:00 Chloride IV 400 mls/hr Q12HR WENDY Administration Aztreonam 1 gm in 50 mls @ 50 mls/hr 12/29/18 17:00 12/30/18 08:31 Azactam/Ns 1 Gm/50 Ml IV 01/03/19 16:59 Not Given Q12H WENDY Levofloxacin/Dextrose 500 mg in 100 mls @ 100 mls/hr 12/29/18 16:00 12/29/18 16:30 Levaquin 500mg/100ml IV 100 mls/hr Q24H WENDY Administration Protocol Norepinephrine 4 mg in 250 mls @ 37.5 mls/hr 12/29/18 20:00 12/30/18 06:37 Levophed Drip 4 Mg/Ns 250 Ml IV 10 mcg/min TITR WENDY 37.5 mls/hr Administration Protocol 10 MCG/MIN Insulin Human Regular 0 units 12/29/18 05:00 12/30/18 08:32 Humulin R SUB-Q Not Given Q4H [facility] Protocol Ondansetron HCl 4 mg 12/29/18 04:49 Zofran IV Q8H PRN Nausea And Vomiting
[2018-12-30] MEDS: HEPARIN SUB-Q SCH (10:22)
[2018-12-30] MEDS: KEPPRA 500 MG in NACL 0.9% 100 ML IV SCH (10:22)
--- NOTE | 2018-12-30 10:42 | Progress Note ---
Subjective Date of service: 12/30/18 Interval history: spoke to the and went over the testing ie CT explained to her seizure control should be good with eugene the doses used will be effective plan portable EEG Objective - Vital Sign Vital Signs - 12hr 12/29/18 12/29/18 12/29/18 22:50 23:00 23:10 Pulse Rate 74 67 68 Pulse Rate [ From Monitor] Pulse Rate [ Left Dorsalis Pedis] Pulse Rate [ Left Radial] Pulse Rate [ Right Dorsalis Pedis] Pulse Rate [ Right Radial] Respiratory 22 22 22 Rate Blood Pressure 128/51 122/50 122/50 O2 Sat by Pulse 95 96 96 Oximetry 12/29/18 12/29/18 12/29/18 23:20 23:30 23:40 Pulse Rate 84 74 73 Pulse Rate [ From Monitor] Pulse Rate [ Left Dorsalis Pedis] Pulse Rate [ Left Radial] Pulse Rate [ Right Dorsalis Pedis] Pulse Rate [ Right Radial] Respiratory 10 L 11 L 18 Rate Blood Pressure 133/57 124/49 124/49 O2 Sat by Pulse 98 94 94 Oximetry 12/29/18 12/30/18 12/30/18 23:50 00:00 00:10 Pulse Rate 75 71 71 Pulse Rate [ 65 From Monitor] Pulse Rate [ 65 Left Dorsalis Pedis] Pulse Rate [ 65 Left Radial] Pulse Rate [ 65 Right Dorsalis Pedis] Pulse Rate [ 65 Right Radial] Respiratory 6 L 21 16 Rate Blood Pressure 115/49 120/51 120/51 O2 Sat by Pulse 94 95 96 Oximetry 12/30/18 12/30/18 12/30/18 00:20 00:30 00:40 Pulse Rate 72 70 70 Pulse Rate [ From Monitor] Pulse Rate [ Left Dorsalis Pedis] Pulse Rate [ Left Radial] Pulse Rate [ Right Dorsalis Pedis] Pulse Rate [ Right Radial] Respiratory 7 L 14 19 Rate Blood Pressure 120/50 125/54 125/54 O2 Sat by Pulse 96 96 96 Oximetry 12/30/18 12/30/18 12/30/18 00:50 01:00 01:10 Pulse Rate 72 69 70 Pulse Rate [ From Monitor] Pulse Rate [ Left Dorsalis Pedis] Pulse Rate [ Left Radial] Pulse Rate [ Right Dorsalis Pedis] Pulse Rate [ Right Radial] Respiratory 22 22 22 Rate Blood Pressure 129/54 126/52 126/52 O2 Sat by Pulse 96 96 96 Oximetry 12/30/18 12/30/18 12/30/18 01:20 01:30 01:40 Pulse Rate 75 68 76 Pulse Rate [ From Monitor] Pulse Rate [ Left Dorsalis Pedis] Pulse Rate [ Left Radial] Pulse Rate [ Right Dorsalis Pedis] Pulse Rate [ Right Radial] Respiratory 22 21 22 Rate Blood Pressure 119/51 115/54 115/54 O2 Sat by Pulse 95 96 95 Oximetry 12/30/18 12/30/18 12/30/18 01:50 02:00 02:10 Pulse Rate 73 72 71 Pulse Rate [ From Monitor] Pulse Rate [ Left Dorsalis Pedis] Pulse Rate [ Left Radial] Pulse Rate [ Right Dorsalis Pedis] Pulse Rate [ Right Radial] Respiratory 12 18 22 Rate Blood Pressure 106/55 113/52 113/52 O2 Sat by Pulse 95 96 96 Oximetry 12/30/18 12/30/18 12/30/18 02:20 02:30 02:40 Pulse Rate 70 69 69 Pulse Rate [ From Monitor] Pulse Rate [ Left Dorsalis Pedis] Pulse Rate [ Left Radial] Pulse Rate [ Right Dorsalis Pedis] Pulse Rate [ Right Radial] Respiratory 22 21 22 Rate Blood Pressure 119/51 122/50 122/50 O2 Sat by Pulse 96 97 97 Oximetry 12/30/18 12/30/18 12/30/18 02:50 03:00 03:10 Pulse Rate 70 69 70 Pulse Rate [ From Monitor] Pulse Rate [ Left Dorsalis Pedis] Pulse Rate [ Left Radial] Pulse Rate [ Right Dorsalis Pedis] Pulse Rate [ Right Radial] Respiratory 22 21 22 Rate Blood Pressure 130/51 111/53 111/53 O2 Sat by Pulse 97 97 97 Oximetry 12/30/18 12/30/18 12/30/18 03:20 03:30 03:41 Pulse Rate 68 69 69 Pulse Rate [ From Monitor] Pulse Rate [ Left Dorsalis Pedis] Pulse Rate [ Left Radial] Pulse Rate [ Right Dorsalis Pedis] Pulse Rate [ Right Radial] Respiratory 22 15 23 Rate Blood Pressure 100/49 123/55 100/49 O2 Sat by Pulse 97 97 97 Oximetry 12/30/18 12/30/18 12/30/18 03:51 04:01 04:11 Pulse Rate 83 70 73 Pulse Rate [ From Monitor] Pulse Rate [ Left Dorsalis Pedis] Pulse Rate [ Left Radial] Pulse Rate [ Right Dorsalis Pedis] Pulse Rate [ Right Radial] Respiratory 17 7 L 21 Rate Blood Pressure 125/52 119/45 119/45 O2 Sat by Pulse 97 96 96 Oximetry 12/30/18 12/30/18 12/30/18 04:21 04:30 04:41 Pulse Rate 72 78 81 Pulse Rate [ From Monitor] Pulse Rate [ Left Dorsalis Pedis] Pulse Rate [ Left Radial] Pulse Rate [ Right Dorsalis Pedis] Pulse Rate [ Right Radial] Respiratory 22 14 22 Rate Blood Pressure 117/45 132/55 132/55 O2 Sat by Pulse 96 95 94 Oximetry 12/30/18 12/30/18 12/30/18 04:43 04:51 05:01 Pulse Rate 66 75 71 Pulse Rate [ From Monitor] Pulse Rate [ Left Dorsalis Pedis] Pulse Rate [ Left Radial] Pulse Rate [ Right Dorsalis Pedis] Pulse Rate [ Right Radial] Respiratory 22 22 Rate Blood Pressure 122/50 128/52 119/49 O2 Sat by Pulse 96 95 95 Oximetry 12/30/18 12/30/18 12/30/18 05:11 05:21 05:30 Pulse Rate 73 70 70 Pulse Rate [ From Monitor] Pulse Rate [ Left Dorsalis Pedis] Pulse Rate [ Left Radial] Pulse Rate [ Right Dorsalis Pedis] Pulse Rate [ Right Radial] Respiratory 22 21 22 Rate Blood Pressure 119/49 119/49 121/53 O2 Sat by Pulse 96 96 96 Oximetry 12/30/18 12/30/18 12/30/18 05:41 05:50 06:00 Pulse Rate 74 70 71 Pulse Rate [ From Monitor] Pulse Rate [ Left Dorsalis Pedis] Pulse Rate [ Left Radial] Pulse Rate [ Right Dorsalis Pedis] Pulse Rate [ Right Radial] Respiratory 22 22 22 Rate Blood Pressure 121/53 132/53 128/63 O2 Sat by Pulse 96 96 96 Oximetry 12/30/18 12/30/18 12/30/18 06:11 06:20 06:31 Pulse Rate 71 81 71 Pulse Rate [ From Monitor] Pulse Rate [ Left Dorsalis Pedis] Pulse Rate [ Left Radial] Pulse Rate [ Right Dorsalis Pedis] Pulse Rate [ Right Radial] Respiratory 19 13 12 Rate Blood Pressure 128/63 128/53 136/45 O2 Sat by Pulse 96 96 96 Oximetry 12/30/18 12/30/18 12/30/18 06:41 06:51 07:00 Pulse Rate 77 72 78 Pulse Rate [ From Monitor] Pulse Rate [ Left Dorsalis Pedis] Pulse Rate [ Left Radial] Pulse Rate [ Right Dorsalis Pedis] Pulse Rate [ Right Radial] Respiratory 22 22 22 Rate Blood Pressure 136/45 136/45 136/60 O2 Sat by Pulse 95 97 96 Oximetry 12/30/18 09:22 Pulse Rate 78 Pulse Rate [ From Monitor] Pulse Rate [ Left Dorsalis Pedis] Pulse Rate [ Left Radial] Pulse Rate [ Right Dorsalis Pedis] Pulse Rate [ Right Radial] Respiratory Rate Blood Pressure 101/53 O2 Sat by Pulse 97 Oximetry - Laboratory Findings CBC and BMP: 12/29/18 12:51 12/29/18 16:50 Abnormal Lab Findings: Abnormal Labs 12/28/18 12/28/18 12/28/18 23:58 23:58 23:58 RBC 2.24 L Hgb 6.7 L Hct 20.9 L RDW 16.4 H Plt Count 99 L Lymph % (Auto) 10.7 L [place] % (Auto) 7.9 H Lymph # 0.6 L [place] # Seg Neutrophils % 80.7 H D-Dimer 815.50 H POC ABG pH POC ABG pCO2 POC ABG pO2 Sodium 148 H Potassium 2.3 L* Chloride 128.4 H Carbon Dioxide 12 L BUN Creatinine 0.4 L Glucose POC Glucose Lactic Acid Calcium 5.0 L* Total Bilirubin AST ALT < 5 L Lactate Dehydrogenase Total Creatine Kinase 44 L CK-MB (CK-2) CK-MB (CK-2) Rel Index 4.3 H Troponin T C-Reactive Protein NT-Pro-B Natriuret Pep Total Protein 2.3 L Albumin 1.1 L HDL Cholesterol Ur Specific [place] Urine WBC (Auto) Crossmatch 12/28/18 12/29/18 12/29/18 23:58 00:27 01:53 RBC Hgb Hct RDW Plt Count Lymph % (Auto) [place] % (Auto) Lymph # [place] # Seg Neutrophils % D-Dimer POC ABG pH 7.169 L POC ABG pCO2 POC ABG pO2 Sodium Potassium Chloride Carbon Dioxide BUN Creatinine Glucose POC Glucose Lactic Acid Calcium Total Bilirubin AST ALT Lactate Dehydrogenase Total Creatine Kinase CK-MB (CK-2) CK-MB (CK-2) Rel Index Troponin T C-Reactive Protein NT-Pro-B Natriuret Pep 1209 H Total Protein Albumin HDL Cholesterol Ur Specific [place] Urine WBC (Auto) Crossmatch See Detail 12/29/18 12/29/18 12/29/18 03:00 05:02 08:34 RBC Hgb Hct RDW Plt Count Lymph % (Auto) [place] % (Auto) Lymph # [place] # Seg Neutrophils % D-Dimer POC ABG pH 7.225 L POC ABG pCO2 57.9 H POC ABG pO2 Sodium Potassium Chloride Carbon Dioxide BUN Creatinine Glucose POC Glucose Lactic Acid Calcium Total Bilirubin AST ALT Lactate Dehydrogenase Total Creatine Kinase 344 H CK-MB (CK-2) 7.9 H CK-MB (CK-2) Rel Index Troponin T 0.103 H* D C-Reactive Protein NT-Pro-B Natriuret Pep Total Protein Albumin HDL Cholesterol 34 L Ur Specific [place] 1.033 H Urine WBC (Auto) 31.0 H Crossmatch 12/29/18 12/29/18 12/29/18 08:34 08:53 12:51 RBC Hgb Hct RDW Plt Count Lymph % (Auto) [place] % (Auto) Lymph # [place] # Seg Neutrophils % D-Dimer POC ABG pH POC ABG pCO2 POC ABG pO2 Sodium Potassium 5.7 H D Chloride Carbon Dioxide BUN 21 H Creatinine Glucose 124 H POC Glucose 119 H Lactic Acid Calcium Total Bilirubin AST ALT Lactate Dehydrogenase Total Creatine Kinase 837 H CK-MB (CK-2) 10.5 H CK-MB (CK-2) Rel Index Troponin T 0.084 H C-Reactive Protein NT-Pro-B Natriuret Pep Total Protein Albumin HDL Cholesterol Ur Specific [place] Urine WBC (Auto) Crossmatch 12/29/18 12/29/18 12/29/18 12:51 12:51 15:02 RBC Hgb Hct RDW 16.0 H Plt Count Lymph % (Auto) [place] % (Auto) 13.3 H Lymph # [place] # 1.4 H Seg Neutrophils % D-Dimer POC ABG pH POC ABG pCO2 POC ABG pO2 Sodium Potassium 5.4 H Chloride Carbon Dioxide 19 L 17 L BUN 21 H 21 H Creatinine Glucose 116 H 115 H POC Glucose Lactic Acid Calcium Total Bilirubin 1.50 H AST 43 H ALT Lactate Dehydrogenase 405 H Total Creatine Kinase CK-MB (CK-2) CK-MB (CK-2) Rel Index Troponin T C-Reactive Protein NT-Pro-B Natriuret Pep Total Protein 6.2 L D Albumin 3.1 L HDL Cholesterol Ur Specific [place] Urine WBC (Auto) Crossmatch 12/29/18 12/29/18 12/29/18 15:03 16:46 16:46 RBC Hgb Hct RDW Plt Count Lymph % (Auto) [place] % (Auto) Lymph # [place] # Seg Neutrophils % D-Dimer POC ABG pH POC ABG pCO2 POC ABG pO2 Sodium Potassium Chloride Carbon Dioxide BUN Creatinine Glucose POC Glucose 121 H Lactic Acid 2.70 H* Calcium Total Bilirubin AST ALT Lactate Dehydrogenase Total Creatine Kinase CK-MB (CK-2) CK-MB (CK-2) Rel Index Troponin T C-Reactive Protein 2.80 H NT-Pro-B Natriuret Pep Total Protein Albumin HDL Cholesterol Ur Specific [place] Urine WBC (Auto) Crossmatch 12/29/18 12/29/18 12/29/18 16:50 17:37 19:37 RBC Hgb Hct RDW Plt Count Lymph % (Auto) [place] % (Auto) Lymph # [place] # Seg Neutrophils % D-Dimer POC ABG pH POC ABG pCO2 POC ABG pO2 248 H Sodium Potassium Chloride Carbon Dioxide 21 L BUN 21 H Creatinine Glucose 123 H POC Glucose 113 H Lactic Acid Calcium Total Bilirubin AST ALT Lactate Dehydrogenase Total Creatine Kinase CK-MB (CK-2) CK-MB (CK-2) Rel Index Troponin T C-Reactive Protein NT-Pro-B Natriuret Pep Total Protein Albumin HDL Cholesterol Ur Specific [place] Urine WBC (Auto) Crossmatch 12/29/18 12/29/18 12/30/18 20:10 21:36 04:43 RBC Hgb Hct RDW Plt Count Lymph % (Auto) [place] % (Auto) Lymph # [place] # Seg Neutrophils % D-Dimer POC ABG pH 7.327 L POC ABG pCO2 POC ABG pO2 79 L Sodium Potassium Chloride Carbon Dioxide BUN Creatinine Glucose POC Glucose Lactic Acid 2.70 H* 2.80 H* Calcium Total Bilirubin AST ALT Lactate Dehydrogenase Total Creatine Kinase CK-MB (CK-2) CK-MB (CK-2) Rel Index Troponin T C-Reactive Protein NT-Pro-B Natriuret Pep Total Protein Albumin HDL Cholesterol Ur Specific [place] Urine WBC (Auto) Crossmatch
[2018-12-30 12:02] LABS: Hematocrit 38.6 % (35.5-45.6); Hemoglobin 12.7 gm/dl (11.8-15.2); Mean Corpuscular HGB Conc 33 % (32-34); Mean Corpuscular Volume 89 fl (84-94); Platelet Count 125 K/mm3 (140-440); Red Blood Count 4.35 M/mm3 (3.65-5.03); Red Cell Distribution Width 16.4 % (13.2-15.2)
--- NOTE | 2018-12-30 12:19 | Consultation ---
HISTORY OF PRESENT ILLNESS: This 73-year-old white male admitted to . I spoke with his at length. He had been having deteriorating health relating to emphysema, low-grade fever and presented to the hospital initially on 12/28/2018 with history of respiratory arrest. Per EMS, the patient was found down with agonal respirations, was intubated. states that he had gone to bed and when she found him, he was unresponsive. Blood pressure was low initially at 78/44. He has had a prior history of stroke, also had a prior history of seizures. I did review his CT scan of the head, which was obtained at the time of admission. ET tube is in place. 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 There is an old right occipital infarct distal territory of the right middle cerebral artery, which probably accounts for the prior stroke. There is nothing acute to be noted. By history the patient did undergo a carotid endarterectomy several years back in which his carotid arteries were cleaned out. This is not totally unexpected given the degree of calcification and the basilar artery is noted on the CT. Subsequent to admission, the has not noticed he has had any more seizures. Eye examination shows the patient to be slightly responsive. He moves his eyes from left to right. I do not find any focal paresis, no seizure activity is present. Examination does not reveal any focal weakness . Neck is supple. No meningismus is present. There is a gaze to the right, which is obvious. As I am talking to him interestingly he does not look over to his . If she talks suggesting a left visual field cut, but this is difficult to assess given his level of arousal and the fact he is intubated. IMPRESSION: 1. Old stroke, right cerebral hemisphere terminal, right middle cerebral artery territory, probably producing a field cut. 2. 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 The patient has a prior history of carotid artery endarterectomy. The patient also has a history of severe COPD. We will follow the patient with you. JOB# [id number] COLTON/NTS
[2018-12-30 12:26] LABS: Calcium 8.2 mg/dL (8.4-10.2)
--- NOTE | 2018-12-30 12:38 | Progress Note ---
Assessment and Plan - Patient Problems (1) Pleural effusion, right Current Visit: Yes Status: Acute Plan to address problem: Pt stable. s/p R CT placement - 12/29/18 - Continue chest tube on suction for now. Can be removed whenever Rate Clerk/Thoracic Surgeon decide to. Will be available as needed. Please call with questions. Time=10min Subjective Date of service: 12/30/18 Patient Reports: Positive: other (no events o/n. oxygen weaned down) Objective Vital Signs - 12hr 12/30/18 12/30/18 12/30/18 00:40 00:50 01:00 Pulse Rate 70 72 69 Respiratory 19 22 22 Rate Blood Pressure 125/54 129/54 126/52 O2 Sat by Pulse 96 96 96 Oximetry 12/30/18 12/30/18 12/30/18 01:10 01:20 01:30 Pulse Rate 70 75 68 Respiratory 22 22 21 Rate Blood Pressure 126/52 119/51 115/54 O2 Sat by Pulse 96 95 96 Oximetry 12/30/18 12/30/18 12/30/18 01:40 01:50 02:00 Pulse Rate 76 73 72 Respiratory 22 12 18 Rate Blood Pressure 115/54 106/55 113/52 O2 Sat by Pulse 95 95 96 Oximetry 12/30/18 12/30/18 12/30/18 02:10 02:20 02:30 Pulse Rate 71 70 69 Respiratory 22 22 21 Rate Blood Pressure 113/52 119/51 122/50 O2 Sat by Pulse 96 96 97 Oximetry 12/30/18 12/30/18 12/30/18 02:40 02:50 03:00 Pulse Rate 69 70 69 Respiratory 22 22 21 Rate Blood Pressure 122/50 130/51 111/53 O2 Sat by Pulse 97 97 97 Oximetry 12/30/18 12/30/18 12/30/18 03:10 03:20 03:30 Pulse Rate 70 68 69 Respiratory 22 22 15 Rate Blood Pressure 111/53 100/49 123/55 O2 Sat by Pulse 97 97 97 Oximetry 12/30/18 12/30/18 12/30/18 03:41 03:51 04:01 Pulse Rate 69 83 70 Respiratory 23 17 7 L Rate Blood Pressure 100/49 125/52 119/45 O2 Sat by Pulse 97 97 96 Oximetry 12/30/18 12/30/18 12/30/18 04:11 04:21 04:30 Pulse Rate 73 72 78 Respiratory 21 22 14 Rate Blood Pressure 119/45 117/45 132/55 O2 Sat by Pulse 96 96 95 Oximetry 12/30/18 12/30/18 12/30/18 04:41 04:43 04:51 Pulse Rate 81 66 75 Respiratory 22 22 Rate Blood Pressure 132/55 122/50 128/52 O2 Sat by Pulse 94 96 95 Oximetry 12/30/18 12/30/18 12/30/18 05:01 05:11 05:21 Pulse Rate 71 73 70 Respiratory 22 22 21 Rate Blood Pressure 119/49 119/49 119/49 O2 Sat by Pulse 95 96 96 Oximetry 12/30/18 12/30/18 12/30/18 05:30 05:41 05:50 Pulse Rate 70 74 70 Respiratory 22 22 22 Rate Blood Pressure 121/53 121/53 132/53 O2 Sat by Pulse 96 96 96 Oximetry 12/30/18 12/30/18 12/30/18 06:00 06:11 06:20 Pulse Rate 71 71 81 Respiratory 22 19 13 Rate Blood Pressure 128/63 128/63 128/53 O2 Sat by Pulse 96 96 96 Oximetry 12/30/18 12/30/18 12/30/18 06:31 06:41 06:51 Pulse Rate 71 77 72 Respiratory 12 22 22 Rate Blood Pressure 136/45 136/45 136/45 O2 Sat by Pulse 96 95 97 Oximetry 12/30/18 12/30/18 12/30/18 07:00 07:10 07:21 Pulse Rate 78 73 82 Respiratory 22 21 21 Rate Blood Pressure 136/60 136/60 136/60 O2 Sat by Pulse 96 96 95 Oximetry 12/30/18 12/30/18 12/30/18 07:31 07:41 07:51 Pulse Rate 82 82 74 Respiratory 22 22 22 Rate Blood Pressure 137/56 137/56 137/56 O2 Sat by Pulse 96 95 95 Oximetry 12/30/18 12/30/18 12/30/18 08:00 08:11 08:21 Pulse Rate 79 73 72 Respiratory 22 22 22 Rate Blood Pressure 106/45 93/25 93/25 O2 Sat by Pulse 95 96 97 Oximetry 12/30/18 12/30/18 12/30/18 08:30 08:41 08:51 Pulse Rate 72 84 71 Respiratory 22 18 22 Rate Blood Pressure 107/39 107/39 107/39 O2 Sat by Pulse 97 96 96 Oximetry 12/30/18 12/30/18 12/30/18 09:00 09:11 09:21 Pulse Rate 71 70 70 Respiratory 22 22 22 Rate Blood Pressure 96/45 96/45 101/53 O2 Sat by Pulse 97 97 97 Oximetry 12/30/18 12/30/18 12/30/18 09:22 09:31 09:41 Pulse Rate 78 79 76 Respiratory 22 22 Rate Blood Pressure 101/53 96/45 121/58 O2 Sat by Pulse 97 98 97 Oximetry 12/30/18 12/30/18 12/30/18 09:51 10:00 10:11 Pulse Rate 71 69 66 Respiratory 22 22 22 Rate Blood Pressure 97/49 102/51 102/51 O2 Sat by Pulse 97 98 97 Oximetry 12/30/18 12/30/18 12/30/18 10:20 10:31 10:41 Pulse Rate 79 71 68 Respiratory 22 21 15 Rate Blood Pressure 102/51 118/51 118/51 O2 Sat by Pulse 96 96 97 Oximetry 12/30/18 12/30/18 12/30/18 10:50 11:00 11:11 Pulse Rate 67 66 68 Respiratory 22 19 22 Rate Blood Pressure 103/36 103/36 107/42 O2 Sat by Pulse 98 97 97 Oximetry 12/30/18 11:21 Pulse Rate 82 Respiratory 17 Rate Blood Pressure 144/64 O2 Sat by Pulse 96 Oximetry - General physical appearance no distress, no pain, other (awake and interactive) - Respiratory normal respiratory effort, other (Right chest tube with serosang drainage. No airleak. No tidaling. Improved BS on right) - Labs 12/30/18 11:42 12/30/18 11:42 Diabetes panel 12/29/18 12/29/18 12/29/18 Range/Units 12:51 15:02 16:50 Sodium 139 140 142 (137-145) mmol/L Potassium TNR 5.4 H 4.6 Chloride 105.8 106.7 106.6 (98-107) mmol/L Carbon Dioxide 19 L 17 L 21 L (22-30) mmol/L BUN 21 H 21 H 21 H (9-20) mg/dL Creatinine 1.5 1.4 1.5 (0.8-1.5) mg/dL Glucose 116 H 115 H 123 H (75-100) mg/dL Calcium 8.8 8.9 8.9 (8.4-10.2) mg/dL AST 43 H (5-40) units/L ALT 17 (7-56) units/L Alkaline Phosphatase 84 (35-129) units/L Total Protein 6.2 L D (6.3-8.2) g/dL Albumin 3.1 L (3.9-5) g/dL 12/30/18 Range/Units 11:42 Sodium 143 (137-145) mmol/L Potassium 4.0 Chloride 108.8 H (98-107) mmol/L Carbon Dioxide 23 (22-30) mmol/L BUN 17 (9-20) mg/dL Creatinine 1.3 (0.8-1.5) mg/dL Glucose 105 H (75-100) mg/dL Calcium 8.2 L (8.4-10.2) mg/dL AST (5-40) units/L ALT (7-56) units/L Alkaline Phosphatase (35-129) units/L Total Protein (6.3-8.2) g/dL Albumin (3.9-5) g/dL Calcium panel 12/29/18 12/29/18 12/29/18 Range/Units 12:51 15:02 16:50 Calcium 8.8 8.9 8.9 (8.4-10.2) mg/dL Albumin 3.1 L (3.9-5) g/dL 12/30/18 Range/Units 11:42 Calcium 8.2 L (8.4-10.2) mg/dL Albumin (3.9-5) g/dL Pituitary panel 12/29/18 12/29/18 12/29/18 Range/Units 12:51 15:02 16:50 Sodium 139 140 142 (137-145) mmol/L Potassium TNR 5.4 H 4.6 Chloride 105.8 106.7 106.6 (98-107) mmol/L Carbon Dioxide 19 L 17 L 21 L (22-30) mmol/L BUN 21 H 21 H 21 H (9-20) mg/dL Creatinine 1.5 1.4 1.5 (0.8-1.5) mg/dL Glucose 116 H 115 H 123 H (75-100) mg/dL Calcium 8.8 8.9 8.9 (8.4-10.2) mg/dL 12/30/18 Range/Units 11:42 Sodium 143 (137-145) mmol/L Potassium 4.0 Chloride 108.8 H (98-107) mmol/L Carbon Dioxide 23 (22-30) mmol/L BUN 17 (9-20) mg/dL Creatinine 1.3 (0.8-1.5) mg/dL Glucose 105 H (75-100) mg/dL Calcium 8.2 L (8.4-10.2) mg/dL Adrenal panel 12/29/18 12/29/18 12/29/18 Range/Units 12:51 15:02 16:50 Sodium 139 140 142 (137-145) mmol/L Potassium TNR 5.4 H 4.6 Chloride 105.8 106.7 106.6 (98-107) mmol/L Carbon Dioxide 19 L 17 L 21 L (22-30) mmol/L BUN 21 H 21 H 21 H (9-20) mg/dL Creatinine 1.5 1.4 1.5 (0.8-1.5) mg/dL Glucose 116 H 115 H 123 H (75-100) mg/dL Calcium 8.8 8.9 8.9 (8.4-10.2) mg/dL Total Bilirubin 1.50 H (0.1-1.2) mg/dL AST 43 H (5-40) units/L ALT 17 (7-56) units/L Alkaline Phosphatase 84 (35-129) units/L Total Protein 6.2 L D (6.3-8.2) g/dL Albumin 3.1 L (3.9-5) g/dL 12/30/18 Range/Units 11:42 Sodium 143 (137-145) mmol/L Potassium 4.0 Chloride 108.8 H (98-107) mmol/L Carbon Dioxide 23 (22-30) mmol/L BUN 17 (9-20) mg/dL Creatinine 1.3 (0.8-1.5) mg/dL Glucose 105 H (75-100) mg/dL Calcium 8.2 L (8.4-10.2) mg/dL Total Bilirubin (0.1-1.2) mg/dL AST (5-40) units/L ALT (7-56) units/L Alkaline Phosphatase (35-129) units/L Total Protein (6.3-8.2) g/dL Albumin (3.9-5) g/dL - Imaging Chest x-ray: report reviewed, image reviewed
--- NOTE | 2018-12-30 12:58 | Consultation ---
History of Present Illness - Reason for Consult Consult date: 12/30/18 Septic shock, pneumonia Requesting physician: DANYEL WILSON - History of Present Illness The patient is a 73-year-old male with history of morbid obesity, ELIGIO on CPAP, CAD s/p CABG, diabetes, restless leg syndrome was brought to the emergency room on 12/28/2018 with a respiratory arrest. Apparently, he was brought by EMS, was found to have agonal breathing, received bag valve mask ventilation. Pt was intubated in the ER and started on mechanical ventilation. A chest x-ray on admission, showed complete opacification of right hemithorax. CTA chest also revealed bilateral pleural effusions, atelectasis right lung and right sided pleural effusion. He was also hypotensive requiring levophed. Patient was seen by general surgery, underwent right-sided chest tube placement on 12/29/2018, large amount of thin, orange fluid was drained. Infectious diseases was consulted due to concerns for severe sepsis and also with pneumonia. There is also some question of seizures at home, neurology was consulted. He had a fever earlier this morning of 102.2F. Per , no fever or cough at home. Uses CPAP machine. Also d/w RN. Review of Systems: Limited due to vent. Past History Past Medical History: acute OR (h/o), arthritis, CAD, diabetes, hypertension, other (restless leg syndrome) Past Surgical History: cholecystectomy (open), CABG, Other (Left CEA. ) Social history: denies: smoking, alcohol abuse Family history: no significant family history Medications and Allergies Allergies Allergy/AdvReac Type Severity Reaction Status Date / Time Penicillins Allergy Unknown Verified 12/29/18 04:18 Active Meds: Active Medications Acetaminophen (Tylenol) 650 mg IN Q4H PRN PRN Reason: Fever >101 Last Admin: 12/30/18 08:33 Dose: 650 mg Documented by: Dextrose (D50w (25gm) Syringe) 50 ml IV PRN PRN PRN Reason: Hypoglycemia Heparin Sodium (Porcine) (Heparin) 5,000 unit SUB-Q Q12HR WENDY Last Admin: 12/30/18 10:22 Dose: 5,000 unit Documented by: Fentanyl Citrate (Fentanyl Drip Premix) 2,000 mcg in 100 mls @ 7.25 mls/hr IV TITR WENDY; Protocol Last Admin: 12/30/18 12:04 Dose: 1 mcg/kg/hr, 7.25 mls/hr Documented by: Sodium Chloride (Nacl 0.9% 1000 Ml) 1,000 mls @ 100 mls/hr IV DIRECT WENDY Last Admin: 12/29/18 16:24 Dose: 100 mls/hr Documented by: Propofol (Diprivan 10 Mg/Ml) 1,000 mg in 100 mls @ 4.35 mls/hr IV TITR WENDY; Protocol Levetiracetam 500 mg/ Sodium (Chloride) 105 mls @ 400 mls/hr IV Q12HR WENDY Last Admin: 12/30/18 10:22 Dose: 400 mls/hr Documented by: Aztreonam (Azactam/Ns 1 Gm/50 Ml) 1 gm in 50 mls @ 50 mls/hr IV Q12H WENDY Stop: 01/03/19 16:59 Last Admin: 12/30/18 08:31 Dose: Not Given Documented by: Levofloxacin/Dextrose (Levaquin 500mg/100ml) 500 mg in 100 mls @ 100 mls/hr IV Q24H WENDY; Protocol Last Admin: 12/29/18 16:30 Dose: 100 mls/hr Documented by: Norepinephrine (Levophed Drip 4 Mg/Ns 250 Ml) 4 mg in 250 mls @ 37.5 mls/hr IV TITR WENDY; Protocol Last Admin: 12/30/18 06:37 Dose: 10 mcg/min, 37.5 mls/hr Documented by: Insulin Human Regular (Humulin R) 0 units SUB-Q Q4H WENDY; Protocol Last Admin: 12/30/18 09:18 Dose: Not Given Documented by: Ondansetron HCl (Zofran) 4 mg IV Q8H PRN PRN Reason: Nausea And Vomiting Physical Examination - Physical Exam Narrative exam: Physical Exam: Constitutional: awake, intubated. Obese Head, Ears, Nose: Normocephalic, atraumatic. External ears, nose normal Eyes: Conjunctivae/corneas clear. No icterus. No ptosis. Neck: Supple, no meningeal signs Oral: intubated Cardiovascular: S1, S2 normal. Respiratory: Good air entry, clear to auscultation bilaterally GI: Soft, non-tender; bowel sounds normal. No peritoneal signs Musculoskeletal: No pedal edema, no cyanosis. Skin: No rash or abscess Hem/Lymphatic: No palpable cervical or supraclavicular nodes. No lymphangitis Psych: no agitation Neurological: awake, intubated, on vent - Constitutional Vitals: Vital Signs Temp Pulse Resp BP Pulse Ox 99.5 F 82 17 144/64 96 12/30/18 12:00 12/30/18 11:21 12/30/18 11:21 12/30/18 11:21 12/30/18 11:21 Temperature -Last 24 Hours Temperature 99.5 F Temperature 102.2 F Results - Labs CBC & Chem 7: 12/30/18 11:42 12/30/18 11:42 Labs: Abnormal lab results 12/29/18 12/29/18 12/29/18 Range/Units 12:51 12:51 12:51 RDW 16.0 H (13.2-15.2) % Plt Count (140-440) K/mm3 Clay % (Auto) 13.3 H (0.0-7.3) % Clay # 1.4 H (0.0-0.8) K/mm3 POC ABG pH (7.35-7.45) POC ABG pO2 (80-105) Potassium (3.6-5.0) mmol/L Chloride (98-107) mmol/L Carbon Dioxide 19 L (22-30) mmol/L BUN 21 H (9-20) mg/dL Glucose 116 H (75-100) mg/dL POC Glucose (70-105) Lactic Acid (0.7-2.0) mmol/L Calcium (8.4-10.2) mg/dL Total Bilirubin (0.1-1.2) mg/dL AST (5-40) units/L Lactate Dehydrogenase (91-180) units/L Total Creatine Kinase 837 H (55-170) units/L CK-MB (CK-2) 10.5 H (0.0-4.0) ng/mL Troponin T 0.084 H (0.00-0.029) ng/mL C-Reactive Protein (0.00-1.30) mg/dL Total Protein (6.3-8.2) g/dL Albumin (3.9-5) g/dL 12/29/18 12/29/18 12/29/18 Range/Units 15:02 15:03 16:46 RDW (13.2-15.2) % Plt Count (140-440) K/mm3 Clay % (Auto) (0.0-7.3) % Clay # (0.0-0.8) K/mm3 POC ABG pH (7.35-7.45) POC ABG pO2 (80-105) Potassium 5.4 H (3.6-5.0) mmol/L Chloride (98-107) mmol/L Carbon Dioxide 17 L (22-30) mmol/L BUN 21 H (9-20) mg/dL Glucose 115 H (75-100) mg/dL POC Glucose 121 H (70-105) Lactic Acid 2.70 H* (0.7-2.0) mmol/L Calcium (8.4-10.2) mg/dL Total Bilirubin 1.50 H (0.1-1.2) mg/dL AST 43 H (5-40) units/L Lactate Dehydrogenase 405 H (91-180) units/L Total Creatine Kinase (55-170) units/L CK-MB (CK-2) (0.0-4.0) ng/mL Troponin T (0.00-0.029) ng/mL C-Reactive Protein (0.00-1.30) mg/dL Total Protein 6.2 L D (6.3-8.2) g/dL Albumin 3.1 L (3.9-5) g/dL 12/29/18 12/29/18 12/29/18 Range/Units 16:46 16:50 17:37 RDW (13.2-15.2) % Plt Count (140-440) K/mm3 Clay % (Auto) (0.0-7.3) % Clay # (0.0-0.8) K/mm3 POC ABG pH (7.35-7.45) POC ABG pO2 248 H (80-105) Potassium (3.6-5.0) mmol/L Chloride (98-107) mmol/L Carbon Dioxide 21 L (22-30) mmol/L BUN 21 H (9-20) mg/dL Glucose 123 H (75-100) mg/dL POC Glucose (70-105) Lactic Acid (0.7-2.0) mmol/L Calcium (8.4-10.2) mg/dL Total Bilirubin (0.1-1.2) mg/dL AST (5-40) units/L Lactate Dehydrogenase (91-180) units/L Total Creatine Kinase (55-170) units/L CK-MB (CK-2) (0.0-4.0) ng/mL Troponin T (0.00-0.029) ng/mL C-Reactive Protein 2.80 H (0.00-1.30) mg/dL Total Protein (6.3-8.2) g/dL Albumin (3.9-5) g/dL 12/29/18 12/29/18 12/29/18 Range/Units 19:37 20:10 21:36 RDW (13.2-15.2) % Plt Count (140-440) K/mm3 Clay % (Auto) (0.0-7.3) % Clay # (0.0-0.8) K/mm3 POC ABG pH (7.35-7.45) POC ABG pO2 (80-105) Potassium (3.6-5.0) mmol/L Chloride (98-107) mmol/L Carbon Dioxide (22-30) mmol/L BUN (9-20) mg/dL Glucose (75-100) mg/dL POC Glucose 113 H (70-105) Lactic Acid 2.70 H* 2.80 H* (0.7-2.0) mmol/L Calcium (8.4-10.2) mg/dL Total Bilirubin (0.1-1.2) mg/dL AST (5-40) units/L Lactate Dehydrogenase (91-180) units/L Total Creatine Kinase (55-170) units/L CK-MB (CK-2) (0.0-4.0) ng/mL Troponin T (0.00-0.029) ng/mL C-Reactive Protein (0.00-1.30) mg/dL Total Protein (6.3-8.2) g/dL Albumin (3.9-5) g/dL 12/30/18 12/30/18 12/30/18 Range/Units 04:43 11:42 11:42 RDW 16.4 H (13.2-15.2) % Plt Count 125 L (140-440) K/mm3 Clay % (Auto) (0.0-7.3) % Clay # (0.0-0.8) K/mm3 POC ABG pH 7.327 L (7.35-7.45) POC ABG pO2 79 L (80-105) Potassium (3.6-5.0) mmol/L Chloride 108.8 H (98-107) mmol/L Carbon Dioxide (22-30) mmol/L BUN (9-20) mg/dL Glucose 105 H (75-100) mg/dL POC Glucose (70-105) Lactic Acid (0.7-2.0) mmol/L Calcium 8.2 L (8.4-10.2) mg/dL Total Bilirubin (0.1-1.2) mg/dL AST (5-40) units/L Lactate Dehydrogenase (91-180) units/L Total Creatine Kinase (55-170) units/L CK-MB (CK-2) (0.0-4.0) ng/mL Troponin T (0.00-0.029) ng/mL C-Reactive Protein (0.00-1.30) mg/dL Total Protein (6.3-8.2) g/dL Albumin (3.9-5) g/dL - Imaging and Cardiology CT scan - chest: report reviewed, image reviewed (CT chest showed bilateral pleural effusions, larger on the right side with complete atelectasis of the right lung.) CT Scan - head: report reviewed, image reviewed (CT head without 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 No fever prior to admission, no leucocytosis. Large R pleural effusion, ?underlying pneumonia. No urinary symptoms, urine culture with no growth (UA with some pyuria). 2) Acute respiratory failure: on the vent. 3) Large R pleural effusion: s/p thoracentesis and chest tube on 12/29/2018. Cannot rule out underlying pneumonia v/s aspiration from seizure. 4) ?Seizures: per family with previous history of seizures. Neurology on board. 5) PCN allergy: remote allergy as a child. agreeable to try Cephalosporins. Recs: d/leon levofloxacin and aztreonam started IV Cefepime 2 gm q8 hrs + IV Flagyl 500 mg q8 hrs no MRSA growth on sputum culture, vancomycin not needed follow up blood and pleural fluid cultures and studies Dr. Corey rounding tomorrow. Anmol Vidal MD [facility] C: [phone] O: [phone] F: [phone]
--- NOTE | 2018-12-30 13:35 | Progress Note ---
Assessment and Plan History was obtained from patient's .Discussed with Dr.Ramesh pedraza and wirer helper. Patient with huge right pleural effusion noted on CXR and CT underwent chest tube insertion and >1 litre of serosanguinous fluid drained out. B.P is still dependaent on Levophed,continue iv fluids and taper levophed as tolerated. Troponins are elevated ,but these are non specific findings ,doubt acute myocardial injury and CK and MB fractions are not suggesting muocardial injury,continue supportive rx. 12/30/2018>echo showed EF lower limits of normal to normal EF around 50%(difficult study).No pericardial effusion. Patient still requiring small dose of Levophed,continue same,on iv antibiotics,continue supportive rx. Discussed with family.Check f/u Troponin. - Patient Problems (1) Hypotension Current Visit: Yes Status: Acute Qualifiers: Hypotension type: unspecified hypotension type Qualified Code(s): I95.9 - Hypotension, unspecified (2) Pleural effusion, right Current Visit: Yes Status: Acute (3) Respiratory failure Current Visit: Yes Status: Acute Qualifiers: Chronicity: acute Respiratory failure complication: hypoxia and hypercapnia Qualified Code(s): J96.01 - Acute respiratory failure with hypoxia; J96.02 - Acute respiratory failure with hypercapnia (4) Hx of CABG Current Visit: Yes Status: Acute Subjective Date of service: 12/30/18 Interval history: Patient is comfortable,intubated,telemetry showing S.R. Objective Vital Signs Temp Pulse Pulse Pulse Pulse Pulse Pulse 12/30/18 12:00 99.5 F 12/30/18 11:21 82 12/30/18 11:11 68 12/30/18 11:00 66 12/30/18 10:50 67 12/30/18 10:41 68 12/30/18 10:31 71 12/30/18 10:20 79 12/30/18 10:11 66 12/30/18 10:00 69 12/30/18 09:51 71 12/30/18 09:41 76 12/30/18 09:31 79 12/30/18 09:22 78 12/30/18 09:21 70 12/30/18 09:11 70 12/30/18 09:00 71 12/30/18 08:51 71 12/30/18 08:41 84 12/30/18 08:30 72 12/30/18 08:21 72 12/30/18 08:11 73 12/30/18 08:00 102.2 F H 79 12/30/18 07:51 74 12/30/18 07:41 82 12/30/18 07:31 82 12/30/18 07:21 82 12/30/18 07:10 73 12/30/18 07:00 78 12/30/18 06:51 72 12/30/18 06:41 77 12/30/18 06:31 71 12/30/18 06:20 81 12/30/18 06:11 71 12/30/18 06:00 71 12/30/18 05:50 70 12/30/18 05:41 74 12/30/18 05:30 70 12/30/18 05:21 70 12/30/18 05:11 73 12/30/18 05:01 71 12/30/18 04:51 75 12/30/18 04:43 66 12/30/18 04:41 81 12/30/18 04:30 78 12/30/18 04:21 72 12/30/18 04:11 73 12/30/18 04:01 70 12/30/18 03:51 83 12/30/18 03:41 69 12/30/18 03:30 69 12/30/18 03:20 68 12/30/18 03:10 70 12/30/18 03:00 69 12/30/18 02:50 70 12/30/18 02:40 69 12/30/18 02:30 69 12/30/18 02:20 70 12/30/18 02:10 71 12/30/18 02:00 72 12/30/18 01:50 73 12/30/18 01:40 76 12/30/18 01:30 68 12/30/18 01:20 75 12/30/18 01:10 70 12/30/18 01:00 69 12/30/18 00:50 72 12/30/18 00:40 70 12/30/18 00:30 70 12/30/18 00:20 72 12/30/18 00:10 71 12/30/18 00:00 71 65 65 65 65 65 12/29/18 23:50 75 12/29/18 23:40 73 12/29/18 23:30 74 12/29/18 23:20 84 12/29/18 23:10 68 12/29/18 23:00 67 12/29/18 22:50 74 12/29/18 22:40 69 12/29/18 22:30 67 12/29/18 22:20 68 12/29/18 22:10 68 12/29/18 22:00 69 12/29/18 21:50 71 12/29/18 21:40 70 12/29/18 21:30 72 12/29/18 21:20 69 12/29/18 21:10 77 12/29/18 21:00 69 12/29/18 20:50 69 12/29/18 20:40 70 12/29/18 20:00 78 78 78 78 78 12/29/18 19:49 72 12/29/18 16:30 71 12/29/18 15:20 55 L Resp BP Pulse Ox 12/30/18 12:00 12/30/18 11:21 17 144/64 96 12/30/18 11:11 22 107/42 97 12/30/18 11:00 19 103/36 97 12/30/18 10:50 22 103/36 98 12/30/18 10:41 15 118/51 97 12/30/18 10:31 21 118/51 96 12/30/18 10:20 22 102/51 96 12/30/18 10:11 22 102/51 97 12/30/18 10:00 22 102/51 98 12/30/18 09:51 22 97/49 97 12/30/18 09:41 22 121/58 97 12/30/18 09:31 22 96/45 98 12/30/18 09:22 101/53 97 12/30/18 09:21 22 101/53 97 12/30/18 09:11 22 96/45 97 12/30/18 09:00 22 96/45 97 12/30/18 08:51 22 107/39 96 12/30/18 08:41 18 107/39 96 12/30/18 08:30 22 107/39 97 12/30/18 08:21 22 93/25 97 12/30/18 08:11 22 93/25 96 12/30/18 08:00 22 106/45 95 12/30/18 07:51 22 137/56 95 12/30/18 07:41 22 137/56 95 12/30/18 07:31 22 137/56 96 12/30/18 07:21 21 136/60 95 12/30/18 07:10 21 136/60 96 12/30/18 07:00 22 136/60 96 12/30/18 06:51 22 136/45 97 12/30/18 06:41 22 136/45 95 12/30/18 06:31 12 136/45 96 12/30/18 06:20 13 128/53 96 12/30/18 06:11 19 128/63 96 12/30/18 06:00 22 128/63 96 12/30/18 05:50 22 132/53 96 12/30/18 05:41 22 121/53 96 12/30/18 05:30 22 121/53 96 12/30/18 05:21 21 119/49 96 12/30/18 05:11 22 119/49 96 12/30/18 05:01 22 119/49 95 12/30/18 04:51 22 128/52 95 12/30/18 04:43 122/50 96 12/30/18 04:41 22 132/55 94 12/30/18 04:30 14 132/55 95 12/30/18 04:21 22 117/45 96 12/30/18 04:11 21 119/45 96 12/30/18 04:01 7 L 119/45 96 12/30/18 03:51 17 125/52 97 12/30/18 03:41 23 100/49 97 12/30/18 03:30 15 123/55 97 12/30/18 03:20 22 100/49 97 12/30/18 03:10 22 111/53 97 12/30/18 03:00 21 111/53 97 12/30/18 02:50 22 130/51 97 12/30/18 02:40 22 122/50 97 12/30/18 02:30 21 122/50 97 12/30/18 02:20 22 119/51 96 12/30/18 02:10 22 113/52 96 12/30/18 02:00 18 113/52 96 12/30/18 01:50 12 106/55 95 12/30/18 01:40 22 115/54 95 12/30/18 01:30 21 115/54 96 12/30/18 01:20 22 119/51 95 12/30/18 01:10 22 126/52 96 12/30/18 01:00 22 126/52 96 12/30/18 00:50 22 129/54 96 12/30/18 00:40 19 125/54 96 12/30/18 00:30 14 125/54 96 12/30/18 00:20 7 L 120/50 96 12/30/18 00:10 16 120/51 96 12/30/18 00:00 21 120/51 95 12/29/18 23:50 6 L 115/49 94 12/29/18 23:40 18 124/49 94 12/29/18 23:30 11 L 124/49 94 12/29/18 23:20 10 L 133/57 98 12/29/18 23:10 22 122/50 96 12/29/18 23:00 22 122/50 96 12/29/18 22:50 22 128/51 95 12/29/18 22:40 22 129/55 96 12/29/18 22:30 22 129/55 96 12/29/18 22:20 22 119/50 96 12/29/18 22:10 22 119/51 96 12/29/18 22:00 22 119/51 96 12/29/18 21:50 5 L 119/50 95 12/29/18 21:40 13 119/48 95 12/29/18 21:30 8 L 119/48 94 12/29/18 21:20 14 122/51 95 12/29/18 21:10 15 122/53 94 12/29/18 21:00 22 122/53 96 12/29/18 20:50 22 112/51 95 12/29/18 20:40 22 111/44 95 12/29/18 20:00 12/29/18 19:49 108/45 96 12/29/18 16:30 22 99 12/29/18 15:20 95 - Physical Examination Narrative exam: intubated on ventilator. General: No Apparent Distress HEENT: Positive: PERRL Neck: Positive: neck supple, trachea midline Cardiac: Positive: Reg Rate and Rhythm Lungs: Positive: Decreased Breath Sounds, Other (chest tube in place on right side.) Abdomen: Positive: Unremarkable Skin: Negative: Rash Extremities: Absent: edema - Labs and Meds Cardiac Enzymes 12/29/18 12/29/18 Range/Units 12:51 15:02 AST 43 H (5-40) units/L Lactate Dehydrogenase 405 H (91-180) units/L CK-MB (CK-2) 10.5 H (0.0-4.0) ng/mL CBC 12/30/18 Range/Units 11:42 WBC 7.9 (4.5-11.0) K/mm3 RBC 4.35 (3.65-5.03) M/mm3 Hgb 12.7 (11.8-15.2) gm/dl Hct 38.6 (35.5-45.6) % Plt Count 125 L (140-440) K/mm3 Comprehensive Metabolic Panel 12/29/18 12/29/18 12/29/18 Range/Units 12:51 15:02 16:50 Sodium 139 140 142 (137-145) mmol/L Potassium TNR 5.4 H 4.6 Chloride 105.8 106.7 106.6 (98-107) mmol/L Carbon Dioxide 19 L 17 L 21 L (22-30) mmol/L BUN 21 H 21 H 21 H (9-20) mg/dL Creatinine 1.5 1.4 1.5 (0.8-1.5) mg/dL Glucose 116 H 115 H 123 H (75-100) mg/dL Calcium 8.8 8.9 8.9 (8.4-10.2) mg/dL AST 43 H (5-40) units/L ALT 17 (7-56) units/L Alkaline Phosphatase 84 (35-129) units/L Total Protein 6.2 L D (6.3-8.2) g/dL Albumin 3.1 L (3.9-5) g/dL 12/30/18 Range/Units 11:42 Sodium 143 (137-145) mmol/L Potassium 4.0 Chloride 108.8 H (98-107) mmol/L Carbon Dioxide 23 (22-30) mmol/L BUN 17 (9-20) mg/dL Creatinine 1.3 (0.8-1.5) mg/dL Glucose 105 H (75-100) mg/dL Calcium 8.2 L (8.4-10.2) mg/dL AST (5-40) units/L ALT (7-56) units/L Alkaline Phosphatase (35-129) units/L Total Protein (6.3-8.2) g/dL Albumin (3.9-5) g/dL - Telemetry EKG Rhythm: Sinus Rhythm AV and intraventricular conduction: 1 AV block, intraventricular conducti Repolarization changes or abnormalities: nonspecific abnormality, ST segment, and/or T wave
[2018-12-30] MEDS ORDERED: MAXIPIME/NS 2 GM/100 ML 2 GM/100 ML BAG IV SCH ×2 (14:00→22:00)
--- NOTE | 2018-12-30 14:01 | Progress Note ---
Assessment and Plan Acute hypoxemic hypercapnic respiratory failure, on mechanical ventilation support. Bilateral pleural effusions, complex looking on the right. Right lung complete atelectasis. Right pneumonia, appears to be community-acquired. Severe sepsis with shock, on Levophed. Anemia that is normocytic present at presentation; however, I think that may be an abnormal lab value. Hypokalemia at presentation that may also be an abnormal lab value. Hypocalcemia at presentation that may also be abnormal lab value. Morbid obesity. History of diabetes. History of hypertension. Restless legs syndrome. Elevated D-dimer (CXR revealed significant re-expansion of right lung post chest tube placement) - reduced set rate to 16/min; repeat ABG afetr 2 hours to ensure adequate ventilation - continue chest tube to vacuum (1 liter in vacutainer) - further CT management per surgeon (input appreciated) - continue full AC support acutely - continue bronchodilators with pulmonary hygiene per RT - get bilateral lower extremity dopplers to complete VTE w/up - reduced FiO2 to 45% - continue to wean supplemental oxygen to keep O2 sats 88-90% acutely - continue Lung protective strategies - Daily ABGs/CXR till more stable - continue empiric antibiotics for CAP / Sepsis - ID consult placed - Follow tracheal aspirate, urine & blood cultures and adjust antibiotic therapy based on LEXI/ID - VAP bundle addressed - continue gentle volume resuscitation while monitoring hemodynamics - continue to wean vasopressor support for MAP> 65 mmHg - daily SAT's & SBT assessment - Sedation target for RASS 0 to -1 - continue Stress ulcer prophylaxis - continue VTE prophylaxis - continue tube feedings as tolerated - resume chronic home medications per attending - continue accuchecks with glycemic control for target glucose of 140-180 mg/dL - Maintenance of sleep -wake cycle - Mobility protocol as tolerated by hemodynamics for pressure ulcer prophylaxis - Influenza and pneumonia vaccination per protocol ..care plan discussed at length with in room .... re-evaluate in am & prn PROGNOSIS GUARDED CONDITION: CRITICAL CODE STATUS: FULL CODE The high probability of a clinically significant, sudden or life-threatening deterioration of the [respiratory, neurology,] system(s) required my full and di rect attention, intervention and personal management. The aggregate critical care time was [38] minutes without overlap. Time includes spent on; [x] Data Review and interpretation [x] Patient assessment and monitoring of vital signs [x] Documentation [x] Medication orders and management Subjective Date of service: 12/30/18 Principal diagnosis: Acute hypoxemic hypercapnic respiratory failure on MVS; Bilateral pleural e Interval history: Patient is seen today for: Acute hypoxemic hypercapnic respiratory failure on MVS; Bilateral pleural effusions, complex looking on the right; Right lung complete atelectasis; Right pneumonia (appears to be community-acquired); Severe sepsis with shock, on Levophed Seen and examined at bedside; 24hour events reviewed; nursing and respiratory care staff consulted; no adverse overnight events reported to me; resting peacefully in bed; remains on fentanyl drip at 2 mics/kg/hr; nods head "No" to pain question; no emesis or overt aspiration; remains on levophed drip Objective Vital Signs - 12hr 12/30/18 12/30/18 12/30/18 02:00 02:10 02:20 Temperature Pulse Rate 72 71 70 Respiratory 18 22 22 Rate Blood Pressure 113/52 113/52 119/51 O2 Sat by Pulse 96 96 96 Oximetry 12/30/18 12/30/18 12/30/18 02:30 02:40 02:50 Temperature Pulse Rate 69 69 70 Respiratory 21 22 22 Rate Blood Pressure 122/50 122/50 130/51 O2 Sat by Pulse 97 97 97 Oximetry 12/30/18 12/30/18 12/30/18 03:00 03:10 03:20 Temperature Pulse Rate 69 70 68 Respiratory 21 22 22 Rate Blood Pressure 111/53 111/53 100/49 O2 Sat by Pulse 97 97 97 Oximetry 12/30/18 12/30/18 12/30/18 03:30 03:41 03:51 Temperature Pulse Rate 69 69 83 Respiratory 15 23 17 Rate Blood Pressure 123/55 100/49 125/52 O2 Sat by Pulse 97 97 97 Oximetry 12/30/18 12/30/18 12/30/18 04:01 04:11 04:21 Temperature Pulse Rate 70 73 72 Respiratory 7 L 21 22 Rate Blood Pressure 119/45 119/45 117/45 O2 Sat by Pulse 96 96 96 Oximetry 12/30/18 12/30/18 12/30/18 04:30 04:41 04:43 Temperature Pulse Rate 78 81 66 Respiratory 14 22 Rate Blood Pressure 132/55 132/55 122/50 O2 Sat by Pulse 95 94 96 Oximetry 0412/30/18 12/30/18 04:51 05:01 05:11 Temperature Pulse Rate 75 71 73 Respiratory 22 22 22 Rate Blood Pressure 128/52 119/49 119/49 O2 Sat by Pulse 95 95 96 Oximetry 12/30/18 12/30/18 12/30/18 05:21 05:30 05:41 Temperature Pulse Rate 70 70 74 Respiratory 21 22 22 Rate Blood Pressure 119/49 121/53 121/53 O2 Sat by Pulse 96 96 96 Oximetry 12/30/18 12/30/18 12/30/18 05:50 06:00 06:11 Temperature Pulse Rate 70 71 71 Respiratory 22 22 19 Rate Blood Pressure 132/53 128/63 128/63 O2 Sat by Pulse 96 96 96 Oximetry 12/30/18 12/30/18 12/30/18 06:20 06:31 06:41 Temperature Pulse Rate 81 71 77 Respiratory 13 12 22 Rate Blood Pressure 128/53 136/45 136/45 O2 Sat by Pulse 96 96 95 Oximetry 12/30/18 12/30/18 12/30/18 06:51 07:00 07:10 Temperature Pulse Rate 72 78 73 Respiratory 22 22 21 Rate Blood Pressure 136/45 136/60 136/60 O2 Sat by Pulse 97 96 96 Oximetry 12/30/18 12/30/18 12/30/18 07:21 07:31 07:41 Temperature Pulse Rate 82 82 82 Respiratory 21 22 22 Rate Blood Pressure 136/60 137/56 137/56 O2 Sat by Pulse 95 96 95 Oximetry 12/30/18 12/30/18 12/30/18 07:51 08:00 08:11 Temperature 102.2 F H Pulse Rate 74 79 73 Respiratory 22 22 22 Rate Blood Pressure 137/56 106/45 93/25 O2 Sat by Pulse 95 95 96 Oximetry 12/30/18 12/30/18 12/30/18 08:21 08:30 08:41 Temperature Pulse Rate 72 72 84 Respiratory 22 22 18 Rate Blood Pressure 93/25 107/39 107/39 O2 Sat by Pulse 97 97 96 Oximetry 12/30/18 12/30/18 12/30/18 08:51 09:00 09:11 Temperature Pulse Rate 71 71 70 Respiratory 22 22 22 Rate Blood Pressure 107/39 96/45 96/45 O2 Sat by Pulse 96 97 97 Oximetry 0412/30/18 12/30/18 09:21 09:22 09:31 Temperature Pulse Rate 70 78 79 Respiratory 22 22 Rate Blood Pressure 101/53 101/53 96/45 O2 Sat by Pulse 97 97 98 Oximetry 12/30/18 12/30/18 12/30/18 09:41 09:51 10:00 Temperature Pulse Rate 76 71 69 Respiratory 22 22 22 Rate Blood Pressure 121/58 97/49 102/51 O2 Sat by Pulse 97 97 98 Oximetry 12/30/18 12/30/18 12/30/18 10:11 10:20 10:31 Temperature Pulse Rate 66 79 71 Respiratory 22 22 21 Rate Blood Pressure 102/51 102/51 118/51 O2 Sat by Pulse 97 96 96 Oximetry 12/30/18 12/30/18 12/30/18 10:41 10:50 11:00 Temperature Pulse Rate 68 67 66 Respiratory 15 22 19 Rate Blood Pressure 118/51 103/36 103/36 O2 Sat by Pulse 97 98 97 Oximetry 12/30/18 12/30/18 12/30/18 11:11 11:21 11:30 Temperature Pulse Rate 68 82 80 Respiratory 22 17 15 Rate Blood Pressure 107/42 144/64 144/64 O2 Sat by Pulse 97 96 95 Oximetry 12/30/18 12/30/18 12/30/18 11:40 11:51 12:00 Temperature 99.5 F Pulse Rate 75 83 Respiratory 15 15 Rate Blood Pressure 147/58 137/62 O2 Sat by Pulse 95 95 Oximetry 12/30/18 12/30/18 12/30/18 12:01 12:11 12:21 Temperature Pulse Rate 82 81 79 Respiratory 16 16 16 Rate Blood Pressure 127/52 127/52 126/54 O2 Sat by Pulse 94 95 95 Oximetry 12/30/18 12/30/18 12/30/18 12:31 12:41 12:51 Temperature Pulse Rate 76 80 81 Respiratory 19 16 16 Rate Blood Pressure 117/48 117/48 108/57 O2 Sat by Pulse 94 94 96 Oximetry 12/30/18 12/30/18 12/30/18 13:01 13:11 13:21 Temperature Pulse Rate 86 82 79 Respiratory 18 16 16 Rate Blood Pressure 116/65 116/65 111/53 O2 Sat by Pulse 94 95 95 Oximetry 12/30/18 12/30/18 13:30 13:43 Temperature Pulse Rate 78 81 Respiratory 16 Rate Blood Pressure 111/46 111/53 O2 Sat by Pulse 96 96 Oximetry CBC and BMP: 12/31/18 05:30 12/31/18 05:30 ABG, PT/INR, D-dimer: ABG POC ABG pH 7.225 (7.35-7.45) L 12/30/18 13:43 POC ABG pCO2 54.7 (35-45) H 12/30/18 13:43 POC ABG pO2 92 (80-105) 12/30/18 13:43 POC ABG HCO3 22.6 (22-26 mml/L) 12/30/18 13:43 POC ABG Total CO2 24 (23-27mmol/L) 12/30/18 13:43 POC ABG O2 Sat 95 12/30/18 13:43 PT/INR, D-dimer PT 14.8 Sec. (12.2-14.9) 12/29/18 01:51 INR 1.09 (0.87-1.13) 12/29/18 01:51 D-Dimer 815.50 ng/mlDDU (0-234) H 12/28/18 23:58 Abnormal lab findings: Abnormal Labs 12/28/18 12/28/18 12/28/18 23:58 23:58 23:58 RBC 2.24 L Hgb 6.7 L Hct 20.9 L RDW 16.4 H Plt Count 99 L Lymph % (Auto) 10.7 L [place] % (Auto) 7.9 H Lymph # 0.6 L [place] # Seg Neutrophils % 80.7 H D-Dimer 815.50 H POC ABG pH POC ABG pCO2 POC ABG pO2 Sodium 148 H Potassium 2.3 L* Chloride 128.4 H Carbon Dioxide 12 L BUN Creatinine 0.4 L Glucose POC Glucose Lactic Acid Calcium 5.0 L* Total Bilirubin AST ALT < 5 L Lactate Dehydrogenase Total Creatine Kinase 44 L CK-MB (CK-2) CK-MB (CK-2) Rel Index 4.3 H Troponin T C-Reactive Protein NT-Pro-B Natriuret Pep Total Protein 2.3 L Albumin 1.1 L HDL Cholesterol Ur Specific [place] Urine WBC (Auto) Crossmatch 12/28/18 12/29/18 12/29/18 23:58 00:27 01:53 RBC Hgb Hct RDW Plt Count Lymph % (Auto) [place] % (Auto) Lymph # [place] # Seg Neutrophils % D-Dimer POC ABG pH 7.169 L POC ABG pCO2 POC ABG pO2 Sodium Potassium Chloride Carbon Dioxide BUN Creatinine Glucose POC Glucose Lactic Acid Calcium Total Bilirubin AST ALT Lactate Dehydrogenase Total Creatine Kinase CK-MB (CK-2) CK-MB (CK-2) Rel Index Troponin T C-Reactive Protein NT-Pro-B Natriuret Pep 1209 H Total Protein Albumin HDL Cholesterol Ur Specific [place] Urine WBC (Auto) Crossmatch See Detail 12/29/18 12/29/18 12/29/18 03:00 05:02 08:34 RBC Hgb Hct RDW Plt Count Lymph % (Auto) [place] % (Auto) Lymph # [place] # Seg Neutrophils % D-Dimer POC ABG pH 7.225 L POC ABG pCO2 57.9 H POC ABG pO2 Sodium Potassium Chloride Carbon Dioxide BUN Creatinine Glucose POC Glucose Lactic Acid Calcium Total Bilirubin AST ALT Lactate Dehydrogenase Total Creatine Kinase 344 H CK-MB (CK-2) 7.9 H CK-MB (CK-2) Rel Index Troponin T 0.103 H* D C-Reactive Protein NT-Pro-B Natriuret Pep Total Protein Albumin HDL Cholesterol 34 L Ur Specific [place] 1.033 H Urine WBC (Auto) 31.0 H Crossmatch 12/29/18 12/29/18 12/29/18 08:34 08:53 12:51 RBC Hgb Hct RDW Plt Count Lymph % (Auto) [place] % (Auto) Lymph # [place] # Seg Neutrophils % D-Dimer POC ABG pH POC ABG pCO2 POC ABG pO2 Sodium Potassium 5.7 H D Chloride Carbon Dioxide BUN 21 H Creatinine Glucose 124 H POC Glucose 119 H Lactic Acid Calcium Total Bilirubin AST ALT Lactate Dehydrogenase Total Creatine Kinase 837 H CK-MB (CK-2) 10.5 H CK-MB (CK-2) Rel Index Troponin T 0.084 H C-Reactive Protein NT-Pro-B Natriuret Pep Total Protein Albumin HDL Cholesterol Ur Specific [place] Urine WBC (Auto) Crossmatch 12/29/18 12/29/18 12/29/18 12:51 12:51 15:02 RBC Hgb Hct RDW 16.0 H Plt Count Lymph % (Auto) [place] % (Auto) 13.3 H Lymph # [place] # 1.4 H Seg Neutrophils % D-Dimer POC ABG pH POC ABG pCO2 POC ABG pO2 Sodium Potassium 5.4 H Chloride Carbon Dioxide 19 L 17 L BUN 21 H 21 H Creatinine Glucose 116 H 115 H POC Glucose Lactic Acid Calcium Total Bilirubin 1.50 H AST 43 H ALT Lactate Dehydrogenase 405 H Total Creatine Kinase CK-MB (CK-2) CK-MB (CK-2) Rel Index Troponin T C-Reactive Protein NT-Pro-B Natriuret Pep Total Protein 6.2 L D Albumin 3.1 L HDL Cholesterol Ur Specific [place] Urine WBC (Auto) Crossmatch 12/29/18 12/29/18 12/29/18 15:03 16:46 16:46 RBC Hgb Hct RDW Plt Count Lymph % (Auto) [place] % (Auto) Lymph # [place] # Seg Neutrophils % D-Dimer POC ABG pH POC ABG pCO2 POC ABG pO2 Sodium Potassium Chloride Carbon Dioxide BUN Creatinine Glucose POC Glucose 121 H Lactic Acid 2.70 H* Calcium Total Bilirubin AST ALT Lactate Dehydrogenase Total Creatine Kinase CK-MB (CK-2) CK-MB (CK-2) Rel Index Troponin T C-Reactive Protein 2.80 H NT-Pro-B Natriuret Pep Total Protein Albumin HDL Cholesterol Ur Specific [place] Urine WBC (Auto) Crossmatch 12/29/18 12/29/18 12/29/18 16:50 17:37 19:37 RBC Hgb Hct RDW Plt Count Lymph % (Auto) [place] % (Auto) Lymph # [place] # Seg Neutrophils % D-Dimer POC ABG pH POC ABG pCO2 POC ABG pO2 248 H Sodium Potassium Chloride Carbon Dioxide 21 L BUN 21 H Creatinine Glucose 123 H POC Glucose 113 H Lactic Acid Calcium Total Bilirubin AST ALT Lactate Dehydrogenase Total Creatine Kinase CK-MB (CK-2) CK-MB (CK-2) Rel Index Troponin T C-Reactive Protein NT-Pro-B Natriuret Pep Total Protein Albumin HDL Cholesterol Ur Specific [place] Urine WBC (Auto) Crossmatch 12/29/18 12/29/18 12/30/18 20:10 21:36 04:43 RBC Hgb Hct RDW Plt Count Lymph % (Auto) [place] % (Auto) Lymph # [place] # Seg Neutrophils % D-Dimer POC ABG pH 7.327 L POC ABG pCO2 POC ABG pO2 79 L Sodium Potassium Chloride Carbon Dioxide BUN Creatinine Glucose POC Glucose Lactic Acid 2.70 H* 2.80 H* Calcium Total Bilirubin AST ALT Lactate Dehydrogenase Total Creatine Kinase CK-MB (CK-2) CK-MB (CK-2) Rel Index Troponin T C-Reactive Protein NT-Pro-B Natriuret Pep Total Protein Albumin HDL Cholesterol Ur Specific [place] Urine WBC (Auto) Crossmatch 12/30/18 12/30/18 12/30/18 11:42 11:42 13:43 RBC Hgb Hct RDW 16.4 H Plt Count 125 L Lymph % (Auto) [place] % (Auto) Lymph # [place] # Seg Neutrophils % D-Dimer POC ABG pH 7.225 L POC ABG pCO2 54.7 H POC ABG pO2 Sodium Potassium Chloride 108.8 H Carbon Dioxide BUN Creatinine Glucose 105 H POC Glucose Lactic Acid Calcium 8.2 L Total Bilirubin AST ALT Lactate Dehydrogenase Total Creatine Kinase CK-MB (CK-2) CK-MB (CK-2) Rel Index Troponin T C-Reactive Protein NT-Pro-B Natriuret Pep Total Protein Albumin HDL Cholesterol Ur Specific [place] Urine WBC (Auto) Crossmatch
[2018-12-30] MEDS: FLAGYL 500 MG/100 ML 500 MG/100 ML BAG IV SCH ×2 (14:32→22:24)
--- NOTE | 2018-12-30 15:51 | XRay Report ---
PROCEDURE: XR CHEST 1V AP TECHNIQUE: Chest radiograph single view. HISTORY: pneumothorax FINDINGS: Single frontal view of the chest was acquired and compared to the prior examination of Apri l 20. There is cardiomegaly. There is an endotracheal tube which lies in appropriate position. There is a n asogastric tube which extends in the stomach. There is a right-sided chest tube. There is no pneumoth orax. There is some left basal consolidation which is likely atelectasis unchanged. IMPRESSION: Right-sided chest tube. No pneumothorax is seen This document is electronically signed by Rudi Swanson MD., December 30 2018 03:50:21 PM ET
--- NOTE | 2018-12-30 16:32 | Vascular Lab Report ---
PROCEDURE: VL VENOUS DUPLEX LE BILAT TECHNIQUE: Duplex Doppler sonography of the BILATERAL lower extremity veins. Rice scale imaging with and without compression, spectral waveform analysis with and without augmentation, and color flow Do ppler were employed. HISTORY: swelling and SOB COMPARISONS: None FINDINGS: RIGHT lower EXTREMITY: There is lack of compressibility in the peroneal vein in the calf, otherwise there is normal compress ibility and blood flow of other interrogated veins. LEFT LOWER EXTREMITY: There is lack of compressibility in the left common femoral vein and proximal superficial femoral vei n. There is also lack of compressibility of the peroneal vein in the calf. IMPRESSION: Thrombus is seen within bilateral peroneal veins in the calves. There is also thrombus seen in the proximal left superficial femoral vein and left common femoral vei n This document is electronically signed by Iman Guerrero MD., December 30 2018 04:31:08 PM ET
[2018-12-30] MEDS: NACL 0.9% 1000 ML 1,000 ML IV SCH (18:09)
[2018-12-30 18:33] LABS: Hematocrit 36.6 % (35.5-45.6); Hemoglobin 11.9 gm/dl (11.8-15.2)
[2018-12-30 19:04] LABS: INR 1.25 (0.87-1.13)
[2018-12-30 19:05] LABS: Partial Thromboplastin Time 33.1 Sec. (24.2-36.6)
[2018-12-30] MEDS: HEPARIN/ 0.45% NACL-25,000 UNIT/500 ML 25,000 UNIT/500 ML BAG IV SCH (19:06)
[2018-12-30] MEDS: SUBLIMAZE IV PRN (22:23)
[2018-12-31] MEDS: DIPRIVAN 10 MG/ML 1,000 MG/100 ML BOTTLE IV SCH ×2 (00:05→20:24)
[2018-12-31] MEDS: FLAGYL 500 MG/100 ML 500 MG/100 ML BAG IV SCH ×3 (06:01→22:58)
[2018-12-31] MEDS: NACL 0.9% 1000 ML 1,000 ML IV SCH (06:01)
[2018-12-31 06:12] LABS: Hematocrit 32.4 % (35.5-45.6); Hemoglobin 10.9 gm/dl (11.8-15.2); Mean Corpuscular HGB Conc 34 % (32-34); Mean Corpuscular Volume 88 fl (84-94); Red Cell Distribution Width 16.1 % (13.2-15.2)
[2018-12-31 06:19] LABS: Platelet Count 97 K/mm3 (140-440)
[2018-12-31 06:25] LABS: Alanine Aminotransferase 11 units/L (7-56); Albumin 2.3 g/dL (3.9-5); BUN/Creatinine Ratio 14; Blood Urea Nitrogen 15 mg/dL (9-20); Calcium 8.2 mg/dL (8.4-10.2); Hemolysis Index 4
[2018-12-31] MEDS: PEPCID IV SCH ×2 (09:08→22:58)
[2018-12-31] MEDS: KEPPRA 500 MG in NACL 0.9% 100 ML IV SCH ×2 (09:09→09:10)
[2018-12-31] MEDS: HEPARIN/ 0.45% NACL-25,000 UNIT/500 ML 25,000 UNIT/500 ML BAG IV SCH ×2 (10:07→23:32)
[2018-12-31] MEDS: HumuLIN R SUB-Q SCH ×3 (10:39→18:10)
--- NOTE | 2018-12-31 11:17 | Progress Note ---
Assessment and Plan Cultures: 12/28/2018 sputum culture: Normal respiratory ramses 12/29/2018 right pleural fluid culture: No growth in 24 hours / no organisms, no PMN, few mononuclear cells 12/29/2018 blood culture: no growth 12/29/2018 urine culture: No growth in 24 hours A/P: 73-year-old male with history of morbid obesity, ELIGIO on CPAP, CAD s/p CABG, diabetes, restless leg syndrome was brought to the emergency room on 12/28/2018 with a respiratory arrest: 1) Shock, etiology unclear: septic v/s cardiogenic. Off pressors today. No fever prior to admission, no leucocytosis. Fever trending down. Unclear etiology?. Large R pleural effusion, ?underlying pneumonia. No urinary symptoms, urine culture with no growth (UA with some pyuria). 2) Acute respiratory failure: on the vent. 3) Large R pleural effusion: s/p thoracentesis and chest tube on 12/29/2018. Cannot rule out underlying pneumonia v/s aspiration from seizure. Pleural fluid studies pending/no sent. Pleural Gram stain not c/w empyema. Pleural culture so far negative. 12/28/2018 sputum culture showed Normal respiratory ramses. 4) ?Seizures: per family with previous history of seizures. Neurology on board. 5) PCN allergy: remote allergy as a child. agreeable to try Cephalosporins. Recs: continue IV Cefepime 2 gm q8 hrs + IV Flagyl 500 mg q8 hrs D2 follow up blood and pleural fluid cultures and studies (pleural LDH, protein, glucose) monitor cultures Will follow Alyssa Cruz MD Infectious Diseases [employer] [facility] M [phone] O [phone] Subjective Date of service: 12/31/18 Principal diagnosis: Acute hypoxemic hypercapnic respiratory failure on MVS; Bilateral pleural e Interval history: Remains on the vent intubated FiO2 35% p8 on heparin gtt and propofol, alert, follows commands, at bedside. Tmax 100.2. at bedside. ROS: unable to obtain Objective - Exam Narrative Exam: General appearance: alert intubated follows commands Eyes: anicteric sclerae, moist conjunctivae; no lid-lag; PERRLA HENT: Atraumatic; oropharynx +ETT +OGT Neck: Trachea midline; supple, no thyromegaly or lymphadenopathy Lungs: coarse himanshu, with + right sided chest tube bloody fluid CV: RRR Abdomen: Soft, obses non-tender Extremities: himanshu arm/legs edema Skin: himanshu arms ecchymoses Psych: intubated alert not agitated Neuro: alert follows commands - Constitutional Vitals: Vital Signs Temp Pulse Resp BP Pulse Ox 98.3 F 75 20 118/65 99 12/31/18 08:00 12/31/18 09:30 12/31/18 09:30 12/31/18 09:30 12/31/18 09:30 Temperature -Last 24 Hours Temperature 98.3 F Temperature 97.9 F Temperature 98.8 F Temperature 99.6 F Temperature 100.2 F Temperature 99.5 F - Labs CBC & Chem 7: 12/31/18 05:30 12/31/18 05:30 Labs: Abnormal lab results 12/30/18 12/30/18 12/30/18 Range/Units 11:42 11:42 13:43 Hgb (11.8-15.2) gm/dl Hct (35.5-45.6) % RDW 16.4 H (13.2-15.2) % Plt Count 125 L (140-440) K/mm3 PT (12.2-14.9) Sec. INR (0.87-1.13) Heparin Anti-Xa Level (0.3-0.7) U.I./ml POC ABG pH 7.225 L (7.35-7.45) POC ABG pCO2 54.7 H (35-45) Chloride 108.8 H (98-107) mmol/L Glucose 105 H (75-100) mg/dL Calcium 8.2 L (8.4-10.2) mg/dL Total Bilirubin (0.1-1.2) mg/dL Troponin T (0.00-0.029) ng/mL Total Protein (6.3-8.2) g/dL Albumin (3.9-5) g/dL 12/30/18 12/30/18 12/30/18 Range/Units 13:53 18:17 18:17 Hgb (11.8-15.2) gm/dl Hct (35.5-45.6) % RDW (13.2-15.2) % Plt Count 114 L (140-440) K/mm3 PT 16.5 H (12.2-14.9) Sec. INR 1.25 H (0.87-1.13) Heparin Anti-Xa Level (0.3-0.7) U.I./ml POC ABG pH (7.35-7.45) POC ABG pCO2 (35-45) Chloride (98-107) mmol/L Glucose (75-100) mg/dL Calcium (8.4-10.2) mg/dL Total Bilirubin (0.1-1.2) mg/dL Troponin T 0.060 H D (0.00-0.029) ng/mL Total Protein (6.3-8.2) g/dL Albumin (3.9-5) g/dL 12/31/18 12/31/18 12/31/18 Range/Units 00:31 04:39 05:30 Hgb 10.9 L (11.8-15.2) gm/dl Hct 32.4 L (35.5-45.6) % RDW 16.1 H (13.2-15.2) % Plt Count 97 L (140-440) K/mm3 PT (12.2-14.9) Sec. INR (0.87-1.13) Heparin Anti-Xa Level 0.12 L (0.3-0.7) U.I./ml POC ABG pH 7.337 L (7.35-7.45) POC ABG pCO2 (35-45) Chloride (98-107) mmol/L Glucose (75-100) mg/dL Calcium (8.4-10.2) mg/dL Total Bilirubin (0.1-1.2) mg/dL Troponin T (0.00-0.029) ng/mL Total Protein (6.3-8.2) g/dL Albumin (3.9-5) g/dL 12/31/18 Range/Units 05:30 Hgb (11.8-15.2) gm/dl Hct (35.5-45.6) % RDW (13.2-15.2) % Plt Count (140-440) K/mm3 PT (12.2-14.9) Sec. INR (0.87-1.13) Heparin Anti-Xa Level (0.3-0.7) U.I./ml POC ABG pH (7.35-7.45) POC ABG pCO2 (35-45) Chloride 110.5 H (98-107) mmol/L Glucose 107 H (75-100) mg/dL Calcium 8.2 L (8.4-10.2) mg/dL Total Bilirubin 1.30 H (0.1-1.2) mg/dL Troponin T (0.00-0.029) ng/mL Total Protein 5.1 L (6.3-8.2) g/dL Albumin 2.3 L (3.9-5) g/dL
--- NOTE | 2018-12-31 11:34 | Progress Note ---
Assessment and Plan Vasopressors weaned. BLE venous duplex positive for thrombus within bilateral peroneal veins in the calves and thrombus in prox left superficial femoral vein and left common femoral vein. Heparin gtt initiated. For possible extubation today. Cont present cardiac management. The patient has been seen in conjunction with Dr. Angeles who agrees with the assessment and plan of care. - Patient Problems (1) Respiratory failure Current Visit: Yes Status: Acute Qualifiers: Chronicity: acute Respiratory failure complication: hypoxia and hypercapnia Qualified Code(s): J96.01 - Acute respiratory failure with hypoxia; J96.02 - Acute respiratory failure with hypercapnia (2) Sepsis Current Visit: Yes Status: Suspected (3) Sepsis associated hypotension Current Visit: Yes Status: Suspected (4) CAD (coronary artery disease) Current Visit: Yes Status: Chronic (5) Hx of CABG Current Visit: Yes Status: Chronic (6) Pleural effusion Current Visit: Yes Status: Acute (7) Chest tube in place Current Visit: Yes Status: Acute (8) NSTEMI (non-ST elevated myocardial infarction) Current Visit: Yes Status: Acute Plan to address problem: type 2 (9) History of CVA (cerebrovascular accident) Current Visit: Yes Status: Acute (10) History of left-sided carotid endarterectomy Current Visit: Yes Status: Chronic (11) History of seizure Current Visit: Yes Status: Chronic (12) DVT (deep venous thrombosis) Current Visit: Yes Status: Acute Subjective Date of service: 12/31/18 Principal diagnosis: Acute hypoxemic hypercapnic respiratory failure on MVS; Bilateral pleural e Interval history: pt resting in bed, remains intubated, alert and nodding appropriately to questions. weaned off levophed. at bedside. Objective Last Vital Signs Temp 98.3 F 12/31/18 08:00 Pulse 75 12/31/18 09:30 Resp 20 12/31/18 09:30 BP 118/65 12/31/18 09:30 Pulse Ox 99 12/31/18 09:30 - Physical Examination General: No Apparent Distress, Other (intubated, alert) HEENT: Positive: PERRL Neck: Positive: neck supple, trachea midline Cardiac: Positive: Reg Rate and Rhythm, S1/S2 Lungs: Positive: Decreased Breath Sounds, Ventilated Respirations Neuro: Positive: Grossly Intact Abdomen: Positive: Unremarkable Skin: Negative: Rash Extremities: Absent: edema - Labs and Meds Cardiac Enzymes 12/31/18 Range/Units 05:30 AST 26 (5-40) units/L Coagulation 12/30/18 Range/Units 18:17 PT 16.5 H (12.2-14.9) Sec. INR 1.25 H (0.87-1.13) APTT 33.1 (24.2-36.6) Sec. CBC 12/30/18 12/30/18 12/31/18 Range/Units 11:42 18:17 05:30 WBC 7.9 5.4 (4.5-11.0) K/mm3 RBC 4.35 3.70 (3.65-5.03) M/mm3 Hgb 12.7 11.9 10.9 L (11.8-15.2) gm/dl Hct 38.6 36.6 32.4 L (35.5-45.6) % Plt Count 125 L 114 L 97 L (140-440) K/mm3 Comprehensive Metabolic Panel 12/30/18 12/31/18 Range/Units 11:42 05:30 Sodium 143 143 (137-145) mmol/L Potassium 4.0 4.0 (3.6-5.0) mmol/L Chloride 108.8 H 110.5 H (98-107) mmol/L Carbon Dioxide 23 22 (22-30) mmol/L BUN 17 15 (9-20) mg/dL Creatinine 1.3 1.1 (0.8-1.5) mg/dL Glucose 105 H 107 H (75-100) mg/dL Calcium 8.2 L 8.2 L (8.4-10.2) mg/dL AST 26 (5-40) units/L ALT 11 (7-56) units/L Alkaline Phosphatase 60 (35-129) units/L Total Protein 5.1 L (6.3-8.2) g/dL Albumin 2.3 L (3.9-5) g/dL - Imaging and Cardiology EKG: report reviewed, image reviewed Echo: report reviewed (12/29/2018: EF 45-50%) - Telemetry EKG Rhythm: Sinus Rhythm AV and intraventricular conduction: 1 AV block, intraventricular conducti Repolarization changes or abnormalities: nonspecific abnormality, ST segment, and/or T wave
[2018-12-31] MEDS ORDERED: TRANSDERM-SCOP TD SCH (13:00)
[2018-12-31] MEDS: MAXIPIME/NS 2 GM/100 ML 2 GM/100 ML BAG IV SCH ×2 (13:42→23:00)
[2018-12-31] MEDS: ROBINUL PO SCH (13:43)
--- NOTE | 2018-12-31 13:46 | XRay Report ---
AP CHEST: HISTORY: Pneumothorax Endotracheal tube and nasogastric tube are unchanged in position since 12/30/18. Cardiomegaly and pulmonary venous congestion appear slightly improved. The lungs are generally clear. No evidence for infiltrate, large pleural effusion or pneumothorax. Right chest tube is unchanged. IMPRESSION: No pneumothorax is visualized.
--- NOTE | 2018-12-31 14:39 | Progress Note ---
Assessment and Plan Acute hypoxemic hypercapnic respiratory failure, on mechanical ventilation support. Bilateral pleural effusions, complex looking on the right. Right lung complete atelectasis. Right pneumonia, appears to be community-acquired. Severe sepsis with shock, on Levophed. Anemia that is normocytic present at presentation; however, I think that may be an abnormal lab value. Hypokalemia at presentation that may also be an abnormal lab value. Hypocalcemia at presentation that may also be abnormal lab value. Morbid obesity. History of diabetes. History of hypertension. Restless legs syndrome. Elevated D-dimer (CXR revealed significant re-expansion of right lung post chest tube placement) - bilateral lower extremity dopplers revealed bilateral DVT's - continue IV heparin while following platelets - cardiology evaluation ongoing (input appreciated) - add Robinul and scopolamine to control secretions - add seroquel qhs re: agitation - reduce set rate to 12/min and repeat ABG later today - failed bedside SBT - continue daily SAT's & SBT assessment - continue chest tube to vacuum (1 liter in vacutainer) - further CT management per surgeon (input appreciated) - continue bronchodilators with pulmonary hygiene per RT - continue to wean supplemental oxygen to keep O2 sats 88-90% acutely - continue Lung protective strategies - Daily ABGs/CXR till more stable - continue empiric antibiotics for CAP / Sepsis - ID consult placed (input appreciated) - Follow tracheal aspirate, urine & blood cultures and adjust antibiotic therapy based on LEXI/ID - VAP bundle addressed - continue gentle volume resuscitation while monitoring hemodynamics - continue to wean vasopressor support for MAP> 65 mmHg - Sedation target for RASS 0 to -1 - continue Stress ulcer prophylaxis - continue VTE prophylaxis - continue tube feedings as tolerated - resume chronic home medications per attending - continue accuchecks with glycemic control for target glucose of 140-180 mg/dL - Maintenance of sleep -wake cycle - Mobility protocol as tolerated by hemodynamics for pressure ulcer prophylaxis - Influenza and pneumonia vaccination per protocol ..care plan discussed at length with in room .... re-evaluate in am & prn PROGNOSIS GUARDED CONDITION: CRITICAL CODE STATUS: FULL CODE The high probability of a clinically significant, sudden or life-threatening deterioration of the [respiratory, neurology,] system(s) required my full and direct attention, intervention and personal management. The aggregate critical care time was [35] minutes without overlap. Time includes spent on; [x] Data Review and interpretation [x] Patient assessment and monitoring of vital signs [x] Documentation [x] Medication orders and management Subjective Date of service: 12/31/18 Principal diagnosis: Acute hypoxemic hypercapnic respiratory failure on MVS; Bilateral pleural e Interval history: Patient is seen today for: Acute hypoxemic hypercapnic respiratory failure on M VS; Bilateral pleural effusions, complex looking on the right; Right lung complete atelectasis; Right pneumonia (appears to be community-acquired); Severe sepsis with shock, on Levophed Seen and examined at bedside; 24hour events reviewed; nursing and respiratory care staff consulted; no adverse overnight events reported to me; resting in bed; intermittently agitated; wants ETT out; his is in room; No emesis or overt aspiration; secretions are moderate to large Objective Vital Signs - 12hr 12/31/18 12/31/18 12/31/18 02:41 02:51 03:00 Temperature Pulse Rate 63 65 64 Pulse Rate [ From Monitor] Respiratory 20 20 20 Rate Blood Pressure 148/70 154/65 152/66 O2 Sat by Pulse 99 99 99 Oximetry 12/31/18 12/31/18 12/31/18 03:11 03:21 03:31 Temperature Pulse Rate 68 70 71 Pulse Rate [ From Monitor] Respiratory 20 20 20 Rate Blood Pressure 155/70 152/66 144/60 O2 Sat by Pulse 99 98 97 Oximetry 12/31/18 12/31/18 12/31/18 03:40 03:51 04:00 Temperature 97.9 F Pulse Rate 87 73 Pulse Rate [ 63 From Monitor] Respiratory 18 20 Rate Blood Pressure 157/75 157/75 O2 Sat by Pulse 97 97 Oximetry 12/31/18 12/31/18 12/31/18 04:01 04:11 04:21 Temperature Pulse Rate 70 67 65 Pulse Rate [ From Monitor] Respiratory 20 20 20 Rate Blood Pressure 144/58 144/58 148/71 O2 Sat by Pulse 99 98 98 Oximetry 12/31/18 12/31/18 12/31/18 04:31 04:36 04:41 Temperature Pulse Rate 78 70 69 Pulse Rate [ From Monitor] Respiratory 21 20 Rate Blood Pressure 129/65 129/65 129/65 O2 Sat by Pulse 98 98 98 Oximetry 12/31/18 12/31/18 12/31/18 04:51 05:01 05:11 Temperature Pulse Rate 65 63 65 Pulse Rate [ From Monitor] Respiratory 20 20 20 Rate Blood Pressure 135/62 125/60 125/60 O2 Sat by Pulse 97 97 97 Oximetry 12/31/18 12/31/18 12/31/18 05:21 05:31 05:41 Temperature Pulse Rate 62 62 65 Pulse Rate [ From Monitor] Respiratory 20 20 20 Rate Blood Pressure 133/62 140/67 140/67 O2 Sat by Pulse 98 99 97 Oximetry 12/31/18 12/31/18 12/31/18 05:51 06:00 06:11 Temperature Pulse Rate 67 73 64 Pulse Rate [ From Monitor] Respiratory 20 20 20 Rate Blood Pressure 113/52 136/70 136/70 O2 Sat by Pulse 97 99 96 Oximetry 12/31/18 12/31/18 12/31/18 06:21 06:30 06:41 Temperature Pulse Rate 67 64 64 Pulse Rate [ From Monitor] Respiratory 20 20 20 Rate Blood Pressure 121/55 114/57 114/57 O2 Sat by Pulse 95 96 96 Oximetry 12/31/18 12/31/18 12/31/18 06:51 07:00 07:11 Temperature Pulse Rate 62 62 63 Pulse Rate [ From Monitor] Respiratory 20 20 20 Rate Blood Pressure 120/59 131/64 131/64 O2 Sat by Pulse 97 98 98 Oximetry 12/31/18 12/31/18 12/31/18 07:21 07:31 07:41 Temperature Pulse Rate 64 89 99 H Pulse Rate [ From Monitor] Respiratory 20 16 17 Rate Blood Pressure 133/63 131/64 131/64 O2 Sat by Pulse 97 97 97 Oximetry 12/31/18 12/31/18 12/31/18 07:51 08:00 08:01 Temperature 98.3 F Pulse Rate 97 H 91 H Pulse Rate [ 96 H From Monitor] Respiratory 20 15 20 Rate Blood Pressure 140/80 135/69 O2 Sat by Pulse 98 98 99 Oximetry 12/31/18 12/31/18 12/31/18 08:05 08:11 08:21 Temperature Pulse Rate 91 H 90 91 H Pulse Rate [ From Monitor] Respiratory 20 17 Rate Blood Pressure 135/69 129/73 O2 Sat by Pulse 99 98 Oximetry 12/31/18 12/31/18 12/31/18 08:30 08:41 08:47 Temperature Pulse Rate 87 77 77 Pulse Rate [ From Monitor] Respiratory 20 20 Rate Blood Pressure 129/73 122/55 126/64 O2 Sat by Pulse 98 97 97 Oximetry 12/31/18 12/31/18 12/31/18 08:51 09:00 09:11 Temperature Pulse Rate 76 78 75 Pulse Rate [ From Monitor] Respiratory 20 20 20 Rate Blood Pressure 126/64 122/58 122/58 O2 Sat by Pulse 97 97 99 Oximetry 12/31/18 12/31/18 12/31/18 09:21 09:30 12:00 Temperature Pulse Rate 75 75 74 Pulse Rate [ From Monitor] Respiratory 20 20 Rate Blood Pressure 121/56 118/65 O2 Sat by Pulse 97 99 Oximetry 12/31/18 12:57 Temperature Pulse Rate 79 Pulse Rate [ From Monitor] Respiratory Rate Blood Pressure 115/61 O2 Sat by Pulse 97 Oximetry Constitutional: alert, appears uncomfortable, other (elderly looking morbidly obese CM normocephalic and with increased work of breathing at rest) Eyes: non-icteric ENT: oropharynx moist, oropharyngeal exudate pre, other (ETT 23 cm ANNE-MARIE) Neck: supple, no lymphadenopathy, no JVD, other (large neck circumference) Effort: mildly labored Ascultation: Bilateral: diminished breath sounds, rhonchi Percussion: Bilateral: not dull Cardiovascular: regular rate and rhythm, other (No R/M) Gastrointestinal: normoactive bowel sounds, soft, non-tender, non-distended Integumentary: normal Extremities: no cyanosis, pink and warm, pulses normal, no ischemia or petechiae, edema (1+) Neurologic: normal mental status, non-focal exam (grossly), pupils equal and round, CN II-XII normal, motor strength normal and Psychiatric: mood appropriate, affect normal CBC and BMP: 01/01/19 04:42 01/01/19 04:42 ABG, PT/INR, D-dimer: ABG POC ABG pH 7.337 (7.35-7.45) L 12/31/18 04:39 POC ABG pCO2 39.4 (35-45) 12/31/18 04:39 POC ABG pO2 98 (80-105) 12/31/18 04:39 POC ABG HCO3 21.1 (22-26 mml/L) 12/31/18 04:39 POC ABG Total CO2 22 (23-27mmol/L) 12/31/18 04:39 POC ABG O2 Sat 97 12/31/18 04:39 PT/INR, D-dimer PT 16.5 Sec. (12.2-14.9) H 12/30/18 18:17 INR 1.25 (0.87-1.13) H 12/30/18 18:17 D-Dimer 815.50 ng/mlDDU (0-234) H 12/28/18 23:58 Abnormal lab findings: Abnormal Labs 12/28/18 12/28/18 12/28/18 23:58 23:58 23:58 RBC 2.24 L Hgb 6.7 L Hct 20.9 L RDW 16.4 H Plt Count 99 L Lymph % (Auto) 10.7 L Forrest % (Auto) 7.9 H Lymph # 0.6 L [place] # Seg Neutrophils % 80.7 H PT INR D-Dimer 815.50 H Heparin Anti-Xa Level POC ABG pH POC ABG pCO2 POC ABG pO2 Sodium 148 H Potassium 2.3 L* Chloride 128.4 H Carbon Dioxide 12 L BUN Creatinine 0.4 L Glucose POC Glucose Lactic Acid Calcium 5.0 L* Total Bilirubin AST ALT < 5 L Lactate Dehydrogenase Total Creatine Kinase 44 L CK-MB (CK-2) CK-MB (CK-2) Rel Index 4.3 H Troponin T C-Reactive Protein NT-Pro-B Natriuret Pep Total Protein 2.3 L Albumin 1.1 L HDL Cholesterol Ur Specific [place] Urine WBC (Auto) Crossmatch 12/28/18 12/29/18 12/29/18 23:58 00:27 01:53 RBC Hgb Hct RDW Plt Count Lymph % (Auto) [place] % (Auto) Lymph # [place] # Seg Neutrophils % PT INR D-Dimer Heparin Anti-Xa Level POC ABG pH 7.169 L POC ABG pCO2 POC ABG pO2 Sodium Potassium Chloride Carbon Dioxide BUN Creatinine Glucose POC Glucose Lactic Acid Calcium Total Bilirubin AST ALT Lactate Dehydrogenase Total Creatine Kinase CK-MB (CK-2) CK-MB (CK-2) Rel Index Troponin T C-Reactive Protein NT-Pro-B Natriuret Pep 1209 H Total Protein Albumin HDL Cholesterol Ur Specific [place] Urine WBC (Auto) Crossmatch See Detail 12/29/18 12/29/18 12/29/18 03:00 05:02 08:34 RBC Hgb Hct RDW Plt Count Lymph % (Auto) [place] % (Auto) Lymph # [place] # Seg Neutrophils % PT INR D-Dimer Heparin Anti-Xa Level POC ABG pH 7.225 L POC ABG pCO2 57.9 H POC ABG pO2 Sodium Potassium Chloride Carbon Dioxide BUN Creatinine Glucose POC Glucose Lactic Acid Calcium Total Bilirubin AST ALT Lactate Dehydrogenase Total Creatine Kinase 344 H CK-MB (CK-2) 7.9 H CK-MB (CK-2) Rel Index Troponin T 0.103 H* D C-Reactive Protein NT-Pro-B Natriuret Pep Total Protein Albumin HDL Cholesterol 34 L Ur Specific [place] 1.033 H Urine WBC (Auto) 31.0 H Crossmatch 12/29/18 12/29/18 12/29/18 08:34 08:53 12:51 RBC Hgb Hct RDW Plt Count Lymph % (Auto) [place] % (Auto) Lymph # [place] # Seg Neutrophils % PT INR D-Dimer Heparin Anti-Xa Level POC ABG pH POC ABG pCO2 POC ABG pO2 Sodium Potassium 5.7 H D Chloride Carbon Dioxide BUN 21 H Creatinine Glucose 124 H POC Glucose 119 H Lactic Acid Calcium Total Bilirubin AST ALT Lactate Dehydrogenase Total Creatine Kinase 837 H CK-MB (CK-2) 10.5 H CK-MB (CK-2) Rel Index Troponin T 0.084 H C-Reactive Protein NT-Pro-B Natriuret Pep Total Protein Albumin HDL Cholesterol Ur Specific [place] Urine WBC (Auto) Crossmatch 12/29/18 12/29/18 12/29/18 12:51 12:51 15:02 RBC Hgb Hct RDW 16.0 H Plt Count Lymph % (Auto) [place] % (Auto) 13.3 H Lymph # [place] # 1.4 H Seg Neutrophils % PT INR D-Dimer Heparin Anti-Xa Level POC ABG pH POC ABG pCO2 POC ABG pO2 Sodium Potassium 5.4 H Chloride Carbon Dioxide 19 L 17 L BUN 21 H 21 H Creatinine Glucose 116 H 115 H POC Glucose Lactic Acid Calcium Total Bilirubin 1.50 H AST 43 H ALT Lactate Dehydrogenase 405 H Total Creatine Kinase CK-MB (CK-2) CK-MB (CK-2) Rel Index Troponin T C-Reactive Protein NT-Pro-B Natriuret Pep Total Protein 6.2 L D Albumin 3.1 L HDL Cholesterol Ur Specific [place] Urine WBC (Auto) Crossmatch 12/29/18 12/29/18 12/29/18 15:03 16:46 16:46 RBC Hgb Hct RDW Plt Count Lymph % (Auto) [place] % (Auto) Lymph # [place] # Seg Neutrophils % PT INR D-Dimer Heparin Anti-Xa Level POC ABG pH POC ABG pCO2 POC ABG pO2 Sodium Potassium Chloride Carbon Dioxide BUN Creatinine Glucose POC Glucose 121 H Lactic Acid 2.70 H* Calcium Total Bilirubin AST ALT Lactate Dehydrogenase Total Creatine Kinase CK-MB (CK-2) CK-MB (CK-2) Rel Index Troponin T C-Reactive Protein 2.80 H NT-Pro-B Natriuret Pep Total Protein Albumin HDL Cholesterol Ur Specific [place] Urine WBC (Auto) Crossmatch 12/29/18 12/29/18 12/29/18 16:50 17:37 19:37 RBC Hgb Hct RDW Plt Count Lymph % (Auto) [place] % (Auto) Lymph # [place] # Seg Neutrophils % PT INR D-Dimer Heparin Anti-Xa Level POC ABG pH POC ABG pCO2 POC ABG pO2 248 H Sodium Potassium Chloride Carbon Dioxide 21 L BUN 21 H Creatinine Glucose 123 H POC Glucose 113 H Lactic Acid Calcium Total Bilirubin AST ALT Lactate Dehydrogenase Total Creatine Kinase CK-MB (CK-2) CK-MB (CK-2) Rel Index Troponin T C-Reactive Protein NT-Pro-B Natriuret Pep Total Protein Albumin HDL Cholesterol Ur Specific [place] Urine WBC (Auto) Crossmatch 12/29/18 12/29/18 12/30/18 20:10 21:36 04:43 RBC Hgb Hct RDW Plt Count Lymph % (Auto) [place] % (Auto) Lymph # [place] # Seg Neutrophils % PT INR D-Dimer Heparin Anti-Xa Level POC ABG pH 7.327 L POC ABG pCO2 POC ABG pO2 79 L Sodium Potassium Chloride Carbon Dioxide BUN Creatinine Glucose POC Glucose Lactic Acid 2.70 H* 2.80 H* Calcium Total Bilirubin AST ALT Lactate Dehydrogenase Total Creatine Kinase CK-MB (CK-2) CK-MB (CK-2) Rel Index Troponin T C-Reactive Protein NT-Pro-B Natriuret Pep Total Protein Albumin HDL Cholesterol Ur Specific [place] Urine WBC (Auto) Crossmatch 12/30/18 12/30/18 12/30/18 11:42 11:42 13:43 RBC Hgb Hct RDW 16.4 H Plt Count 125 L Lymph % (Auto) [place] % (Auto) Lymph # [place] # Seg Neutrophils % PT INR D-Dimer Heparin Anti-Xa Level POC ABG pH 7.225 L POC ABG pCO2 54.7 H POC ABG pO2 Sodium Potassium Chloride 108.8 H Carbon Dioxide BUN Creatinine Glucose 105 H POC Glucose Lactic Acid Calcium 8.2 L Total Bilirubin AST ALT Lactate Dehydrogenase Total Creatine Kinase CK-MB (CK-2) CK-MB (CK-2) Rel Index Troponin T C-Reactive Protein NT-Pro-B Natriuret Pep Total Protein Albumin HDL Cholesterol Ur Specific [place] Urine WBC (Auto) Crossmatch 12/30/18 12/30/18 12/30/18 13:53 18:17 18:17 RBC Hgb Hct RDW Plt Count 114 L Lymph % (Auto) [place] % (Auto) Lymph # [place] # Seg Neutrophils % PT 16.5 H INR 1.25 H D-Dimer Heparin Anti-Xa Level POC ABG pH POC ABG pCO2 POC ABG pO2 Sodium Potassium Chloride Carbon Dioxide BUN Creatinine Glucose POC Glucose Lactic Acid Calcium Total Bilirubin AST ALT Lactate Dehydrogenase Total Creatine Kinase CK-MB (CK-2) CK-MB (CK-2) Rel Index Troponin T 0.060 H D C-Reactive Protein NT-Pro-B Natriuret Pep Total Protein Albumin HDL Cholesterol Ur Specific [place] Urine WBC (Auto) Crossmatch 12/31/18 12/31/18 12/31/18 00:31 04:39 05:30 RBC Hgb 10.9 L Hct 32.4 L RDW 16.1 H Plt Count 97 L Lymph % (Auto) [place] % (Auto) Lymph # [place] # Seg Neutrophils % PT INR D-Dimer Heparin Anti-Xa Level 0.12 L POC ABG pH 7.337 L POC ABG pCO2 POC ABG pO2 Sodium Potassium Chloride Carbon Dioxide BUN Creatinine Glucose POC Glucose Lactic Acid Calcium Total Bilirubin AST ALT Lactate Dehydrogenase Total Creatine Kinase CK-MB (CK-2) CK-MB (CK-2) Rel Index Troponin T C-Reactive Protein NT-Pro-B Natriuret Pep Total Protein Albumin HDL Cholesterol Ur Specific [place] Urine WBC (Auto) Crossmatch 12/31/18 05:30 RBC Hgb Hct RDW Plt Count Lymph % (Auto) [place] % (Auto) Lymph # [place] # Seg Neutrophils % PT INR D-Dimer Heparin Anti-Xa Level POC ABG pH POC ABG pCO2 POC ABG pO2 Sodium Potassium Chloride 110.5 H Carbon Dioxide BUN Creatinine Glucose 107 H POC Glucose Lactic Acid Calcium 8.2 L Total Bilirubin 1.30 H AST ALT Lactate Dehydrogenase Total Creatine Kinase CK-MB (CK-2) CK-MB (CK-2) Rel Index Troponin T C-Reactive Protein NT-Pro-B Natriuret Pep Total Protein 5.1 L Albumin 2.3 L HDL Cholesterol Ur Specific [place] Urine WBC (Auto) Crossmatch Chest x-ray: image reviewed (chest tube in pleural space; ETT in good position) Allied health notes reviewed: nursing
[2018-12-31] MEDS ORDERED: PANCREAZE DR 10,500 UNIT FEEDTUBE PRN (15:06)
[2018-12-31] MEDS ORDERED: SODIUM BICARBONATE FEEDTUBE PRN (15:06)
[2018-12-31] MEDS ORDERED: SIMPLE SYRUP FEEDTUBE PRN ×2 (15:06)
--- NOTE | 2018-12-31 16:17 | Vascular Lab Report ---
PROCEDURE: VL VENOUS DUPLEX LE BILAT TECHNIQUE: Duplex Doppler sonography of the BILATERAL lower extremity veins. Rice scale imaging with and without compression, spectral waveform analysis with and without augmentation, and color flow Do ppler were employed. HISTORY: dvt. COMPARISONS: 12/30/2018 FINDINGS: RIGHT UPPER EXTREMITY: There is again seen lack of compressibility in the right mid calf peroneal vein. Other interrogated v eins are patent. LEFT UPPER EXTREMITY: There is again seen noncompressibility of the left peroneal vein. There is only partial compressibili ty in the left distal common femoral vein and proximal superficial femoral vein, compatible with thro mbus. IMPRESSION: No significant change compared to the prior study. 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
--- NOTE | 2018-12-31 19:28 | Progress Note ---
Assessment and Plan Assessment and plan: Patient is a 73-year-old male, with PMHx of mobid obesity, HTN, CAD, s/p ID, Seizure, admitted after spouse found him on the floor with agonal breathing 10 mins after he went to bed. EMS was called and transported to the hospital in full respiratory distress and was intubated in the ED for airway stablization and hypoxia CXR; right sided pleural effusion CT: no PE * Critical care, ID and cardiology consulted * Per family patient has been having 2 weeks increasing shortness of breath and also chronic bouts of hypotension * Large right sided pleural effusion noted on cxr requiring emergent chest tube placement * Concern if patient had seizure that led to being found on the floor so Neurology was consult * Appeared also septic on admission ?aspiration Acute Hypoxic Respiratory failure- On Mechanical Ventilation Seizure Disorder DVT BILATERAL LOWER EXT Right sided Pneumonia Large Right sided Pleural effusion- s/p chest tube, pending fluid analysis Shock syndrome questionable septic versus cardiogenic Hypokalemia Morbid Obesity Thrombocytopenia Non ST elevated ID type II Presumed ischemic cardiomyopathy status post CABG Acute metabolic encephalopathy Severe Protein calorie malnutrition Hyponatremia Hypocalcemia History of CVA 2 years ago Plan On heparin drip, Monitor for thrombocytopenia Continue current ICU care Continue chest tube management VAP and aspiration precautions Continue abx, Follow cultures, and fluid analysis from Chest tube insertion ID consulted Family advised of findings Continue AED Remote PCN allergy DVT/GI prophy The high probability of a clinically significant, sudden or life threatening deterioration of the [NEURO, PULMONARY] system(s) required my full and direct attention, intervention and personal management. The aggregate critical care time was [55] minutes. This time is in addition to time spent performing reported procedures but includes the following: [X] Data Review and interpretation [X] Patient assessment and monitoring of vital signs [X] Documentation [X] Medication orders and management History Interval history: Patient seen and examined, family at bedside, chest tube draining, patient awakes to verbal stimuli, still on full mechanical ventilation for acute r espiratory support. No fever noted. Nursing staff reported later in the day positive DVT on US Hospitalist Physical - Physical exam Narrative exam: VITAL SIGNS: Reviewed. GENERAL: The patient appeared well nourished and normally developed, morbidly obese, on full Mechanical ventilatory support, Vital signs as documented. HEAD: No signs of head trauma. EYES: Pupils are equal. Extraocular motions intact. EARS: Hearing grossly intact. MOUTH: Oropharynx is normal. NECK: No adenopathy, no JVD. Large and short CHEST: Chest with Diminished breath sounds bilaterally. No wheezes, rales, or rhonchi. Chest tube in place CARDIAC: Regular rate and rhythm. S1 and S2, without murmurs, gallops, or rubs. VASCULAR: +1 pitting Edema. Peripheral pulses normal and equal in all extremities. ABDOMEN: Soft, non tender and non distended. No rebound or guarding, and no masses palpated. Bowel Sounds normal. MUSCULOSKELETAL: Good range of motion of all major joints. Extremities without clubbing, cyanosis. +1 Pitting edema. NEUROLOGIC EXAM: Alert and oriented x 3 No focal sensory or strength deficits. Speech normal. Follows commands. PSYCHIATRIC: Mood anxious. SKIN: echymosis. - Constitutional Vitals: Temp Pulse Resp BP Pulse Ox 98.3 F 107 H 18 135/81 91 12/31/18 16:00 12/31/18 18:51 12/31/18 18:51 12/31/18 18:51 12/31/18 18:51 General appearance: Present: no acute distress, other (intubated,on respirator.) Results - Labs CBC & Chem 7: 12/31/18 05:30 12/31/18 05:30 Labs: Laboratory Last Values WBC 5.4 K/mm3 (4.5-11.0) 12/31/18 05:30 RBC 3.70 M/mm3 (3.65-5.03) 12/31/18 05:30 Hgb 10.9 gm/dl (11.8-15.2) L 12/31/18 05:30 Hct 32.4 % (35.5-45.6) L 12/31/18 05:30 MCV 88 fl (84-94) 12/31/18 05:30 MCH 30 pg (28-32) 12/31/18 05:30 MCHC 34 % (32-34) 12/31/18 05:30 RDW 16.1 % (13.2-15.2) H 12/31/18 05:30 Plt Count 97 K/mm3 (140-440) L 12/31/18 05:30 Lymph % (Auto) 17.2 % (13.4-35.0) 12/29/18 12:51 [place] % (Auto) 13.3 % (0.0-7.3) H 12/29/18 12:51 Eos % (Auto) 1.3 % (0.0-4.3) 12/29/18 12:51 Baso % (Auto) 0.4 % (0.0-1.8) 12/29/18 12:51 Lymph # 1.9 K/mm3 (1.2-5.4) 12/29/18 12:51 [place] # 1.4 K/mm3 (0.0-0.8) H 12/29/18 12:51 Eos # 0.1 K/mm3 (0.0-0.4) 12/29/18 12:51 Baso # 0.0 K/mm3 (0.0-0.1) 12/29/18 12:51 Seg Neutrophils % 67.8 % (40.0-70.0) 12/29/18 12:51 Seg Neutrophils # 7.3 K/mm3 (1.8-7.7) 12/29/18 12:51 PT 16.5 Sec. (12.2-14.9) H 12/30/18 18:17 INR 1.25 (0.87-1.13) H 12/30/18 18:17 APTT 33.1 Sec. (24.2-36.6) 12/30/18 18:17 D-Dimer 815.50 ng/mlDDU (0-234) H 12/28/18 23:58 Heparin Anti-Xa Level 0.36 U.I./ml (0.3-0.7) 12/31/18 09:00 POC ABG pH 7.246 (7.35-7.45) L 12/31/18 16:27 POC ABG pCO2 52.6 (35-45) H 12/31/18 16:27 POC ABG pO2 87 (80-105) 12/31/18 16:27 POC ABG HCO3 22.9 (22-26 mml/L) 12/31/18 16:27 POC ABG Total CO2 24 (23-27mmol/L) 12/31/18 16:27 POC ABG O2 Sat 95 12/31/18 16:27 POC ABG Base Excess -4 ((-2) - (+3)mmol/L) 12/31/18 16:27 FiO2 35 % 12/31/18 16:27 Sodium 143 mmol/L (137-145) 12/31/18 05:30 Potassium 4.0 mmol/L (3.6-5.0) 12/31/18 05:30 Chloride 110.5 mmol/L (98-107) H 12/31/18 05:30 Carbon Dioxide 22 mmol/L (22-30) 12/31/18 05:30 Anion Gap 15 mmol/L 12/31/18 05:30 BUN 15 mg/dL (9-20) 12/31/18 05:30 Creatinine 1.1 mg/dL (0.8-1.5) 12/31/18 05:30 Estimated GFR > 60 ml/min 12/31/18 05:30 BUN/Creatinine Ratio 14 % 12/31/18 05:30 Glucose 107 mg/dL (75-100) H 12/31/18 05:30 POC Glucose 109 (70-105) H 12/31/18 18:40 Lactic Acid 1.50 mmol/L (0.7-2.0) 12/30/18 11:42 Calcium 8.2 mg/dL (8.4-10.2) L 12/31/18 05:30 Magnesium 2.10 mg/dL (1.7-2.3) 12/29/18 01:51 Total Bilirubin 1.30 mg/dL (0.1-1.2) H 12/31/18 05:30 AST 26 units/L (5-40) 12/31/18 05:30 ALT 11 units/L (7-56) 12/31/18 05:30 Alkaline Phosphatase 60 units/L (35-129) 12/31/18 05:30 Lactate Dehydrogenase 405 units/L (91-180) H 12/29/18 15:02 Total Creatine Kinase 837 units/L (55-170) H 12/29/18 12:51 CK-MB (CK-2) 10.5 ng/mL (0.0-4.0) H 12/29/18 12:51 CK-MB (CK-2) Rel Index 1.2 (0-4) 12/29/18 12:51 Troponin T 0.060 ng/mL (0.00-0.029) H D 12/30/18 13:53 C-Reactive Protein 2.80 mg/dL (0.00-1.30) H 12/29/18 16:46 NT-Pro-B Natriuret Pep 1209 pg/mL (0-900) H 12/28/18 23:58 Total Protein 5.1 g/dL (6.3-8.2) L 12/31/18 05:30 Albumin 2.3 g/dL (3.9-5) L 12/31/18 05:30 Albumin/Globulin Ratio 0.8 % 12/31/18 05:30 Triglycerides 113 mg/dL (2-149) 12/29/18 08:34 Cholesterol 120 mg/dL (50-199) 12/29/18 08:34 LDL Cholesterol Direct 82 mg/dL (50-130) 12/29/18 08:34 HDL Cholesterol 34 mg/dL (40-59) L 12/29/18 08:34 Cholesterol/HDL Ratio 3.52 % 12/29/18 08:34 Urine Color Yolande (Yellow) 12/29/18 03:00 Urine Turbidity Cloudy (Clear) 12/29/18 03:00 Urine pH 5.0 (5.0-7.0) 12/29/18 03:00 Ur Specific [place] 1.033 (1.003-1.030) H 12/29/18 03:00 Urine Protein >500 mg/dL (Negative) 12/29/18 03:00 Urine Glucose (UA) 150 mg/dL (Negative) 12/29/18 03:00 Urine Ketones Neg mg/dL (Negative) 12/29/18 03:00 Urine Blood Mod (Negative) 12/29/18 03:00 Urine Nitrite Neg (Negative) 12/29/18 03:00 Urine Bilirubin Neg (Negative) 12/29/18 03:00 Urine Urobilinogen < 2.0 mg/dL (<2.0) 12/29/18 03:00 Ur Leukocyte Esterase Neg (Negative) 12/29/18 03:00 Urine WBC (Auto) 31.0 /HPF (0.0-6.0) H 12/29/18 03:00 Urine RBC (Auto) 27.0 /HPF (0.0-6.0) 12/29/18 03:00 U Epithel Cells (Auto) 4.0 /HPF (0-13.0) 12/29/18 03:00 Urine Bacteria (Auto) 4+ /HPF (Negative) 12/29/18 03:00 Urine Mucus 3+ /HPF 12/29/18 03:00 Urine Opiates Screen Presumptive negative 12/29/18 03:00 Urine Methadone Screen Presumptive negative 12/29/18 03:00 Ur Barbiturates Screen Presumptive negative 12/29/18 03:00 Ur Phencyclidine Scrn Presumptive negative 12/29/18 03:00 Ur Amphetamines Screen Presumptive negative 12/29/18 03:00 U Benzodiazepines Scrn Presumptive negative 12/29/18 03:00 Urine Cocaine Screen Presumptive negative 12/29/18 03:00 U Marijuana (THC) Screen Presumptive negative 12/29/18 03:00 Drugs of Abuse Note Disclamer 12/29/18 03:00 Blood Type O POSITIVE 12/29/18 01:53 Antibody Screen Negative 12/29/18 01:53 Crossmatch See Detail 12/29/18 01:53 Active Medications - Current Medications Current Medications: Generic Name Dose Route Start Last Admin Trade Name Freq PRN Reason Stop Dose Admin Acetaminophen 650 mg 12/29/18 04:49 12/30/18 08:33 Tylenol [place] 650 mg Q4H PRN Administration Fever >101 Lipase/Protease/Amylase 1 each 12/31/18 15:[address] 10,500 Unit FEEDTUBE PRN PRN For Clogged Feeding Tube Dextrose 50 ml 12/29/18 04:47 D50w (25gm) Syringe IV PRN PRN Hypoglycemia Famotidine 20 mg 12/31/18 10:00 12/31/18 09:08 Pepcid IV 20 mg BID WENDY Administration Fentanyl 25 mcg 12/30/18 14:26 12/30/18 22:23 Sublimaze IV 25 mcg Q2H PRN Administration Pain , Severe (7-10) Glycopyrrolate 1 mg 12/31/18 14:00 12/31/18 13:43 Robinul PO 1 mg TID WENDY Administration Fentanyl Citrate 2,000 mcg in 100 mls @ 7.25 mls/hr 12/28/18 23:45 12/30/18 19:45 Fentanyl Drip Premix IV 0 mcg/kg/hr TITR WENDY 0 mls/hr Titration Protocol 1 MCG/KG/HR Propofol 1,000 mg in 100 mls @ 4.35 mls/hr 12/29/18 07:00 12/31/18 13:00 Diprivan 10 Mg/Ml IV 0 mcg/kg/min TITR WENDY 0 mls/hr Titration Protocol 5 MCG/KG/MIN Levetiracetam 500 mg/ Sodium 105 mls @ 400 mls/hr 12/29/18 22:00 12/31/18 09:10 Chloride IV 400 mls/hr Q12HR WENDY Administration Norepinephrine 4 mg in 250 mls @ 37.5 mls/hr 12/29/18 20:00 12/31/18 03:22 Levophed Drip 4 Mg/Ns 250 Ml IV 2 mcg/min TITR WENDY 7.5 mls/hr Titration Protocol 10 MCG/MIN Metronidazole 500 mg in 100 mls @ 100 mls/hr 12/30/18 14:00 12/31/18 13:44 Flagyl 500 Mg/100 Ml IV 100 mls/hr Q8HR WENDY Administration Protocol Heparin Sodium/Sodium Chloride 25,000 unit in 500 mls @ 30 mls/hr 12/30/18 19:00 12/31/18 10:20 Heparin/ 0.45% Nacl-25,000 Unit/500 Ml IV 1,800 units/hr TITR WENDY 36 mls/hr Titration Protocol 1,500 UNITS/HR Cefepime HCl 2 gm in 100 mls @ 200 mls/hr 12/31/18 14:00 12/31/18 13:42 Maxipime/Ns 2 Gm/100 Ml IV 200 mls/hr Q8HR WENDY Administration Protocol Insulin Human Regular 0 units 12/29/18 05:00 12/31/18 14:30 Humulin R SUB-Q Not Given Q4H [facility] Protocol Ondansetron HCl 4 mg 12/29/18 04:49 Zofran IV Q8H PRN Nausea And Vomiting Quetiapine Fumarate 100 mg 12/31/18 22:00 Seroquel PO QHS WENDY Scopolamine 1 each 12/31/18 13:00 12/31/18 13:42 Transderm-Scop TD 1 each Q3D WENDY Administration Simple Syrup 15 ml 12/31/18 15:06 Simple Syrup FEEDTUBE PRN PRN Hypoglycemia Simple Syrup 30 ml 12/31/18 15:06 Simple Syrup FEEDTUBE PRN PRN Hypoglycemia Sodium Bicarbonate 325 mg 12/31/18 15:06 Sodium Bicarbonate FEEDTUBE PRN PRN For Clogged Feeding Tube Nutrition/Malnutrition Assess - Dietary Evaluation Nutrition/Malnutrition Findings: Nutrition Notes Start: 12/31/18 14:59 Freq: Status: Active Protocol: Document 12/31/18 14:59 LIZ (Rec: 12/31/18 15:05 [id number] [id number]) Nutrition Notes Need for Assessment generated from: MD Order,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 Pt on vent support. Burn Absent Trauma Absent #1 Nutrition Diagnosis Inadequate oral intake [facility] As Evidenced by Signs and Symptoms pt NPO Is patient on ventilator? Yes Is Patient Ambulatory and/or Out of Bed No REE-([facility]-confined to bed) 0032.864 Additional Notes Pro needs 2.5g/kg IBW: 182g/ day Fluid needs 1ml/kcal Nutrition Intervention Nutrition Support: Vital High Protein at 75ml/hr with 50ml water flush q4h. Kcal 1,800 Protein (gm) 158 Carbohydrates (gm) 202 Fat (gm) 42 Fluid (mL) 1,505 Fiber (gm) 0 Goal #1 TF tolerance Goal #2 TF to meet 65-70% energy and 80-100% pro needs Anticipated Discharge Needs: Unable to identify at this time Follow-Up By: 01/02/19 Additional Comments F/U: new TF, vent status
[2019-01-01 05:03] LABS: Hematocrit 31.6 % (35.5-45.6); Hemoglobin 10.7 gm/dl (11.8-15.2); Mean Corpuscular HGB Conc 34 % (32-34); Mean Corpuscular Volume 89 fl (84-94); Red Blood Count 3.54 M/mm3 (3.65-5.03); Red Cell Distribution Width 16.3 % (13.2-15.2)
[2019-01-01 05:09] LABS: Platelet Count 83 K/mm3 (140-440)
[2019-01-01 05:29] LABS: Alanine Aminotransferase 10 units/L (7-56); Albumin 2.3 g/dL (3.9-5); BUN/Creatinine Ratio 15; Blood Urea Nitrogen 16 mg/dL (9-20); Calcium 8.1 mg/dL (8.4-10.2); Hemolysis Index 3
[2019-01-01] MEDS: DIPRIVAN 10 MG/ML 1,000 MG/100 ML BOTTLE IV SCH (05:45)
[2019-01-01] MEDS: FLAGYL 500 MG/100 ML 500 MG/100 ML BAG IV SCH ×3 (05:48→21:57)
[2019-01-01] MEDS: MAXIPIME/NS 2 GM/100 ML 2 GM/100 ML BAG IV SCH ×3 (05:48→21:57)
[2019-01-01] MEDS: HumuLIN R SUB-Q SCH ×8 (06:45→21:56)
[2019-01-01] MEDS: ROBINUL PO SCH ×4 (07:21→21:55)
[2019-01-01] MEDS: KEPPRA 500 MG in NACL 0.9% 100 ML IV SCH ×3 (07:21→21:57)
--- NOTE | 2019-01-01 09:20 | Progress Note ---
Assessment and Plan Assessment and plan: Patient is a 73-year-old male, with mobid obesity, HTN, CAD, s/p [place], Seizure. He was admitted after spouse found him on the floor with agonal breathing 10 mins after he went to bed. EMS was called and he was transported here to the ED in respiratory distress and was intubated in the ED. CXR; right sided pleural effusion CT: no PE * Critical care, ID and cardiology consulted * Per family patient has been having 2 weeks increasing shortness of breath and also chronic bouts of hypotension * Large right sided pleural effusion noted on cxr requiring emergent chest tube placement * Concern if patient had seizure that led to being found on the floor so Neurology was consult * Appeared also septic on admission ?aspiration Acute Hypoxic Respiratory failure- On Mechanical Ventilation Seizure Disorder DVT bilateral lower ext Right sided Pneumonia Large Right sided Pleural effusion- s/p chest tube, pending fluid analysis Shock syndrome questionable septic versus cardiogenic Hypokalemia Morbid Obesity Thrombocytopenia Non ST elevated [place] type II Presumed ischemic cardiomyopathy status post CABG Acute metabolic encephalopathy Severe Protein calorie malnutrition Hyponatremia Hypocalcemia History of CVA 2 years ago Plan On heparin drip, Continue current ICU care Continue chest tube management VAP and aspiration precautions Continue abx, Follow cultures, and fluid analysis from Chest tube insertion ID consulted Family advised of findings Continue AED DVT/GI prophy Discussed with at bedside The high probability of a clinically significant, sudden or life threatening deterioration of the [NEURO, PULMONARY] system(s) required my full and direct attention, intervention and personal management. The aggregate critical care time was [55] minutes. This time is in addition to time spent performing reported procedures but includes the following: [X] Data Review and interpretation [X] Patient assessment and monitoring of vital signs [X] Documentation [X] Medication orders and management History Interval history: Patient is a 73-year-old male, with mobid obesity, HTN, CAD, s/p [place], Seizure, admitted after spouse found him on the floor with agonal breathing 10 mins after he went to bed. EMS was called and transported to the hospital in full respiratory distress and was intubated in the ED. Patient still intubated No fever x 2 days Hospitalist Physical - Physical exam Narrative exam: Gen: Intubated, not in acute distress, morbidly obese HEENT: Normocephalic, atraumatic Neck: supple, no JVD Heart: S1 and S2 reg, no murmurs, rubs or gallop Lungs: Clear, no crackles, right chest tube Abd: soft, non tender, non distended, normal BS Ext: No edema, no clubbing, no cyanosis, Neuro: Intubated, does not follow commands - Constitutional Vitals: Temp Pulse Resp BP Pulse Ox 98.8 F 76 16 151/83 98 01/01/19 07:48 01/01/19 08:30 01/01/19 08:30 01/01/19 08:30 01/01/19 08:30 General appearance: Present: other (intubated,on respirator.) Results - Labs CBC & Chem 7: 01/01/19 04:42 01/01/19 04:42 Labs: Laboratory Last Values WBC 3.9 K/mm3 (4.5-11.0) L 01/01/19 04:42 RBC 3.54 M/mm3 (3.65-5.03) L 01/01/19 04:42 Hgb 10.7 gm/dl (11.8-15.2) L 01/01/19 04:42 Hct 31.6 % (35.5-45.6) L 01/01/19 04:42 MCV 89 fl (84-94) 01/01/19 04:42 MCH 30 pg (28-32) 01/01/19 04:42 MCHC 34 % (32-34) 01/01/19 04:42 RDW 16.3 % (13.2-15.2) H 01/01/19 04:42 Plt Count 83 K/mm3 (140-440) L 01/01/19 04:42 Lymph % (Auto) 17.2 % (13.4-35.0) 12/29/18 12:51 [place] % (Auto) 13.3 % (0.0-7.3) H 12/29/18 12:51 Eos % (Auto) 1.3 % (0.0-4.3) 12/29/18 12:51 Baso % (Auto) 0.4 % (0.0-1.8) 12/29/18 12:51 Lymph # 1.9 K/mm3 (1.2-5.4) 12/29/18 12:51 [place] # 1.4 K/mm3 (0.0-0.8) H 12/29/18 12:51 Eos # 0.1 K/mm3 (0.0-0.4) 12/29/18 12:51 Baso # 0.0 K/mm3 (0.0-0.1) 12/29/18 12:51 Seg Neutrophils % 67.8 % (40.0-70.0) 12/29/18 12:51 Seg Neutrophils # 7.3 K/mm3 (1.8-7.7) 12/29/18 12:51 PT 16.5 Sec. (12.2-14.9) H 12/30/18 18:17 INR 1.25 (0.87-1.13) H 12/30/18 18:17 APTT 33.1 Sec. (24.2-36.6) 12/30/18 18:17 D-Dimer 815.50 ng/mlDDU (0-234) H 12/28/18 23:58 Heparin Anti-Xa Level 0.37 U.I./ml (0.3-0.7) 01/01/19 07:23 POC ABG pH 7.278 (7.35-7.45) L 01/01/19 04:25 POC ABG pCO2 50.6 (35-45) H 01/01/19 04:25 POC ABG pO2 111 (80-105) H 01/01/19 04:25 POC ABG HCO3 23.7 (22-26 mml/L) 01/01/19 04:25 POC ABG Total CO2 25 (23-27mmol/L) 01/01/19 04:25 POC ABG O2 Sat 98 01/01/19 04:25 POC ABG Base Excess -3 ((-2) - (+3)mmol/L) 01/01/19 04:25 FiO2 35 % 01/01/19 04:25 Sodium 143 mmol/L (137-145) 01/01/19 04:42 Potassium 4.0 mmol/L (3.6-5.0) 01/01/19 04:42 Chloride 109.8 mmol/L (98-107) H 01/01/19 04:42 Carbon Dioxide 25 mmol/L (22-30) 01/01/19 04:42 Anion Gap 12 mmol/L 01/01/19 04:42 BUN 16 mg/dL (9-20) 01/01/19 04:42 Creatinine 1.1 mg/dL (0.8-1.5) 01/01/19 04:42 Estimated GFR > 60 ml/min 01/01/19 04:42 BUN/Creatinine Ratio 15 % 01/01/19 04:42 Glucose 134 mg/dL (75-100) H 01/01/19 04:42 POC Glucose 137 (70-105) H 01/01/19 07:33 Lactic Acid 1.50 mmol/L (0.7-2.0) 12/30/18 11:42 Calcium 8.1 mg/dL (8.4-10.2) L 01/01/19 04:42 Magnesium 2.10 mg/dL (1.7-2.3) 12/29/18 01:51 Total Bilirubin 0.60 mg/dL (0.1-1.2) 01/01/19 04:42 AST 23 units/L (5-40) 01/01/19 04:42 ALT 10 units/L (7-56) 01/01/19 04:42 Alkaline Phosphatase 53 units/L (35-129) 01/01/19 04:42 Lactate Dehydrogenase 405 units/L (91-180) H 12/29/18 15:02 Total Creatine Kinase 837 units/L (55-170) H 12/29/18 12:51 CK-MB (CK-2) 10.5 ng/mL (0.0-4.0) H 12/29/18 12:51 CK-MB (CK-2) Rel Index 1.2 (0-4) 12/29/18 12:51 Troponin T 0.060 ng/mL (0.00-0.029) H D 12/30/18 13:53 C-Reactive Protein 2.80 mg/dL (0.00-1.30) H 12/29/18 16:46 NT-Pro-B Natriuret Pep 1209 pg/mL (0-900) H 12/28/18 23:58 Total Protein 4.9 g/dL (6.3-8.2) L 01/01/19 04:42 Albumin 2.3 g/dL (3.9-5) L 01/01/19 04:42 Albumin/Globulin Ratio 0.9 % 01/01/19 04:42 Triglycerides 113 mg/dL (2-149) 12/29/18 08:34 Cholesterol 120 mg/dL (50-199) 12/29/18 08:34 LDL Cholesterol Direct 82 mg/dL (50-130) 12/29/18 08:34 HDL Cholesterol 34 mg/dL (40-59) L 12/29/18 08:34 Cholesterol/HDL Ratio 3.52 % 12/29/18 08:34 Urine Color Yolande (Yellow) 12/29/18 03:00 Urine Turbidity Cloudy (Clear) 12/29/18 03:00 Urine pH 5.0 (5.0-7.0) 12/29/18 03:00 Ur Specific [place] 1.033 (1.003-1.030) H 12/29/18 03:00 Urine Protein >500 mg/dL (Negative) 12/29/18 03:00 Urine Glucose (UA) 150 mg/dL (Negative) 12/29/18 03:00 Urine Ketones Neg mg/dL (Negative) 12/29/18 03:00 Urine Blood Mod (Negative) 12/29/18 03:00 Urine Nitrite Neg (Negative) 12/29/18 03:00 Urine Bilirubin Neg (Negative) 12/29/18 03:00 Urine Urobilinogen < 2.0 mg/dL (<2.0) 12/29/18 03:00 Ur Leukocyte Esterase Neg (Negative) 12/29/18 03:00 Urine WBC (Auto) 31.0 /HPF (0.0-6.0) H 12/29/18 03:00 Urine RBC (Auto) 27.0 /HPF (0.0-6.0) 12/29/18 03:00 U Epithel Cells (Auto) 4.0 /HPF (0-13.0) 12/29/18 03:00 Urine Bacteria (Auto) 4+ /HPF (Negative) 12/29/18 03:00 Urine Mucus 3+ /HPF 12/29/18 03:00 Urine Opiates Screen Presumptive negative 12/29/18 03:00 Urine Methadone Screen Presumptive negative 12/29/18 03:00 Ur Barbiturates Screen Presumptive negative 12/29/18 03:00 Ur Phencyclidine Scrn Presumptive negative 12/29/18 03:00 Ur Amphetamines Screen Presumptive negative 12/29/18 03:00 U Benzodiazepines Scrn Presumptive negative 12/29/18 03:00 Urine Cocaine Screen Presumptive negative 12/29/18 03:00 U Marijuana (THC) Screen Presumptive negative 12/29/18 03:00 Drugs of Abuse Note Disclamer 12/29/18 03:00 Blood Type O POSITIVE 12/29/18 01:53 Antibody Screen Negative 12/29/18 01:53 Crossmatch See Detail 12/29/18 01:53 Active Medications - Current Medications Current Medications: Generic Name Dose Route Start Last Admin Trade Name Freq PRN Reason Stop Dose Admin Acetaminophen 650 mg 12/29/18 04:49 12/30/18 08:33 Tylenol [place] 650 mg Q4H PRN Administration Fever >101 Lipase/Protease/Amylase 1 each 12/31/18 15:06 Pancreaze 10,500 Unit FEEDTUBE PRN PRN For Clogged Feeding Tube Dextrose 50 ml 12/29/18 04:47 D50w (25gm) Syringe IV PRN PRN Hypoglycemia Famotidine 20 mg 01/01/19 10:00 Pepcid PO BID WENDY Fentanyl 25 mcg 12/30/18 14:26 12/30/18 22:23 Sublimaze IV 25 mcg Q2H PRN Administration Pain , Severe (7-10) Glycopyrrolate 1 mg 12/31/18 14:00 01/01/19 07:21 Robinul PO Not Given TID WENDY Fentanyl Citrate 2,000 mcg in 100 mls @ 7.25 mls/hr 12/28/18 23:45 12/30/18 19:45 Fentanyl Drip Premix IV 0 mcg/kg/hr TITR WENDY 0 mls/hr Titration Protocol 1 MCG/KG/HR Propofol 1,000 mg in 100 mls @ 4.35 mls/hr 12/29/18 07:00 01/01/19 07:00 Diprivan 10 Mg/Ml IV 5 mcg/kg/min TITR WENDY 4.35 mls/hr Titration Protocol 5 MCG/KG/MIN Levetiracetam 500 mg/ Sodium 105 mls @ 400 mls/hr 12/29/18 22:00 01/01/19 07:21 Chloride IV 01/01/19 23:59 Not Given Q12HR WENDY Norepinephrine 4 mg in 250 mls @ 37.5 mls/hr 12/29/18 20:00 12/31/18 03:22 Levophed Drip 4 Mg/Ns 250 Ml IV 2 mcg/min TITR WENDY 7.5 mls/hr Titration Protocol 10 MCG/MIN Metronidazole 500 mg in 100 mls @ 100 mls/hr 12/30/18 14:00 01/01/19 05:48 Flagyl 500 Mg/100 Ml IV 100 mls/hr Q8HR WENDY Administration Protocol Heparin Sodium/Sodium Chloride 25,000 unit in 500 mls @ 30 mls/hr 12/30/18 19:00 01/01/19 08:55 Heparin/ 0.45% Nacl-25,000 Unit/500 Ml IV 1,800 units/hr TITR WENDY 36 mls/hr Titration Protocol 1,500 UNITS/HR Cefepime HCl 2 gm in 100 mls @ 200 mls/hr 12/31/18 14:00 01/01/19 05:48 Maxipime/Ns 2 Gm/100 Ml IV 200 mls/hr Q8HR WENDY Administration Protocol Insulin Human Regular 0 units 12/29/18 05:00 01/01/19 09:04 Humulin R SUB-Q Not Given Q4H WENDY Protocol Levetiracetam 500 mg 01/02/19 10:00 Keppra PO BID WENDY Ondansetron HCl 4 mg 12/29/18 04:49 Zofran IV Q8H PRN Nausea And Vomiting Quetiapine Fumarate 100 mg 12/31/18 22:00 12/31/18 22:58 Seroquel PO 100 mg QHS WENDY Administration Scopolamine 1 each 12/31/18 13:00 12/31/18 13:42 Transderm-Scop TD 1 each Q3D WENDY Administration Simple Syrup 15 ml 12/31/18 15:06 Simple Syrup FEEDTUBE PRN PRN Hypoglycemia Simple Syrup 30 ml 12/31/18 15:06 Simple Syrup FEEDTUBE PRN PRN Hypoglycemia Sodium Bicarbonate 325 mg 12/31/18 15:06 Sodium Bicarbonate FEEDTUBE PRN PRN For Clogged Feeding Tube Nutrition/Malnutrition Assess - Dietary Evaluation Nutrition/Malnutrition Findings: Nutrition Notes Start: 12/31/18 14:59 Freq: Status: Active Protocol: Document 12/31/18 14:59 LIZ (Rec: 12/31/18 15:05 [email or web address]) Nutrition Notes Need for Assessment 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 Pt on vent support. Burn Absent Trauma Absent #1 Nutrition Diagnosis Inadequate oral [facility] As Evidenced by Signs and Symptoms pt NPO Is patient on ventilator? Yes Is Patient Ambulatory and/or Out of Bed No REE-([facility]-confined to bed) [phone] Additional Notes Pro needs 2.5g/kg IBW: 182g/ day Fluid needs 1ml/kcal Nutrition Intervention Nutrition Support: Vital High Protein at 75ml/hr with 50ml water flush q4h. Kcal 1,800 Protein (gm) 158 Carbohydrates (gm) 202 Fat (gm) 42 Fluid (mL) 1,505 Fiber (gm) 0 Goal #1 TF tolerance Goal #2 TF to meet 65-70% energy and 80-100% pro needs Anticipated Discharge Needs: Unable to identify at this time Follow-Up By: 01/02/19 Additional Comments F/U: new TF, vent status
[2019-01-01] MEDS: PEPCID PO SCH ×2 (09:27→21:56)
--- NOTE | 2019-01-01 10:21 | Progress Note ---
Assessment and Plan Cultures: 12/28/2018 sputum culture: Normal respiratory ramses 12/29/2018 right pleural fluid culture: No growth in 24 hours / no organisms, no PMN, few mononuclear cells 12/29/2018 blood culture: no growth 12/29/2018 urine culture: No growth in 24 hours A/P: 73-year-old male with history of morbid obesity, ELIGIO on CPAP, CAD s/p CABG, diabetes, restless leg syndrome was brought to the emergency room on 12/28/2018 with a respiratory arrest: 1) Shock, etiology unclear: septic v/s cardiogenic. No fever prior to admission, no leucocytosis. Fever resolved. Unclear etiology?. Large R pleural effusion, ?underlying pneumonia. No urinary symptoms, urine culture with no growth (UA with some pyuria). 2) Acute respiratory failure: better; on the vent. 3) Large R pleural effusion: s/p thoracentesis and chest tube on 12/29/2018. Cannot rule out underlying pneumonia v/s aspiration from seizure. Pleural fluid studies pending/no sent. Pleural Gram stain not c/w empyema. Pleural culture so far negative. 12/28/2018 sputum culture showed Normal respiratory ramses. 4) ?Seizures: per family with previous history of seizures. Neurology on board. 5) PCN allergy: remote allergy as a child. agreeable to try Cephalosporins. Recs: continue IV Cefepime 2 gm q8 hrs + IV Flagyl 500 mg q8 hrs D3 follow up blood and pleural fluid cultures and studies (pleural LDH, protein, gl ucose) - no sent remove left femoral TLC, ok to place a midline remove baird Will follow Alyssa Cruz MD Infectious Diseases [employer] [facility] M [phone] O [phone] Subjective Date of service: 01/01/19 Principal diagnosis: Acute hypoxemic hypercapnic respiratory failure on MVS; Bilateral pleural e Interval history: Remains on the vent intubated FiO2 35% p8 on propofol gtt, alert, daughter at b [place].No fever for 36h. ROS: unable to obtain Objective - Exam Narrative Exam: General appearance: alert intubated sedated Eyes: anicteric sclerae, moist conjunctivae; no lid-lag; PERRLA HENT: Atraumatic; oropharynx +ETT +OGT Neck: Trachea midline; supple, no thyromegaly or lymphadenopathy Lungs: coarse himanshu, with + right sided chest tube bloody fluid CV: RRR Abdomen: Soft, obses non-tender Extremities: himanshu arm/legs edema Skin: himanshu arms ecchymoses Psych: intubated alert not agitated Neuro: alert follows commands left fem TLC/baird - Constitutional Vitals: Vital Signs Temp Pulse Resp BP Pulse Ox 98.8 F 74 13 161/96 98 01/01/19 07:48 01/01/19 10:00 01/01/19 10:00 01/01/19 10:00 01/01/19 10:00 Temperature -Last 24 Hours Temperature 98.8 F Temperature 98.6 F Temperature 98.9 F Temperature 99.3 F Temperature 98.3 F Temperature 99.2 F - Labs CBC & Chem 7: 01/01/19 04:42 01/01/19 04:42 Labs: Abnormal lab results 12/31/18 12/31/18 12/31/18 Range/Units 16:27 18:40 21:37 WBC (4.5-11.0) K/mm3 RBC (3.65-5.03) M/mm3 Hgb (11.8-15.2) gm/dl Hct (35.5-45.6) % RDW (13.2-15.2) % Plt Count (140-440) K/mm3 POC ABG pH 7.246 L (7.35-7.45) POC ABG pCO2 52.6 H (35-45) POC ABG pO2 (80-105) Chloride (98-107) mmol/L Glucose (75-100) mg/dL POC Glucose 109 H 108 H (70-105) Calcium (8.4-10.2) mg/dL Total Protein (6.3-8.2) g/dL Albumin (3.9-5) g/dL 01/01/19 01/01/19 01/01/19 Range/Units 03:05 04:25 04:42 WBC 3.9 L (4.5-11.0) K/mm3 RBC 3.54 L (3.65-5.03) M/mm3 Hgb 10.7 L (11.8-15.2) gm/dl Hct 31.6 L (35.5-45.6) % RDW 16.3 H (13.2-15.2) % Plt Count 83 L (140-440) K/mm3 POC ABG pH 7.278 L (7.35-7.45) POC ABG pCO2 50.6 H (35-45) POC ABG pO2 111 H (80-105) Chloride (98-107) mmol/L Glucose (75-100) mg/dL POC Glucose 147 H (70-105) Calcium (8.4-10.2) mg/dL Total Protein (6.3-8.2) g/dL Albumin (3.9-5) g/dL 01/01/19 01/01/19 01/01/19 Range/Units 04:42 06:32 07:33 WBC (4.5-11.0) K/mm3 RBC (3.65-5.03) M/mm3 Hgb (11.8-15.2) gm/dl Hct (35.5-45.6) % RDW (13.2-15.2) % Plt Count (140-440) K/mm3 POC ABG pH (7.35-7.45) POC ABG pCO2 (35-45) POC ABG pO2 (80-105) Chloride 109.8 H (98-107) mmol/L Glucose 134 H (75-100) mg/dL POC Glucose 143 H 137 H (70-105) Calcium 8.1 L (8.4-10.2) mg/dL Total Protein 4.9 L (6.3-8.2) g/dL Albumin 2.3 L (3.9-5) g/dL
--- NOTE | 2019-01-01 11:07 | Progress Note ---
Assessment and Plan Acute respiratory failure Vent weaning per pulmonary Suspected Sepsis with sepsis associated hypotension Vasopressors weaned ID following CAD s/p CABG in 2000 Pleural effusion Chest tube in place Echo done 12/29/2018: EF 45-50% NSTEMI Type II Echo done 12/29/2018: EF 45-50% History of CVA History of left-sided carotid endarterectomy History of seizure Per family with previous history of seizures. Neurology following. Acute BLE DVT Heparin gtt per primary Anemia / thrombocytopenia Heparin gtt infusing. Consider holding heparin gtt and hematology consultation per primary. Monitor CBC. Cont present cardiac management. Wean vent per pulmonary. Can consider ischemic evaluation once medically stabilized. The patient has been seen in conjunction with Dr. Le who agrees with the assessment and plan of care. Subjective Date of service: 01/01/19 Principal diagnosis: Acute hypoxemic hypercapnic respiratory failure on MVS; Bilateral pleural e Interval history: pt resting in bed, remains intubated and sedated. daughter at bedside. Objective Last Vital Signs Temp 98.8 F 01/01/19 07:48 Pulse 74 01/01/19 10:00 Resp 13 01/01/19 10:00 BP 161/96 01/01/19 10:00 Pulse Ox 98 01/01/19 10:00 - Physical Examination General: Other (intubated, sedated) HEENT: Positive: PERRL Neck: Positive: neck supple, trachea midline Cardiac: Positive: Reg Rate and Rhythm, S1/S2 Lungs: Positive: Decreased Breath Sounds Abdomen: Positive: Unremarkable Skin: Negative: Rash Extremities: Absent: edema - Labs and Meds Cardiac Enzymes 01/01/19 Range/Units 04:42 AST 23 (5-40) units/L CBC 01/01/19 Range/Units 04:42 WBC 3.9 L (4.5-11.0) K/mm3 RBC 3.54 L (3.65-5.03) M/mm3 Hgb 10.7 L (11.8-15.2) gm/dl Hct 31.6 L (35.5-45.6) % Plt Count 83 L (140-440) K/mm3 Comprehensive Metabolic Panel 01/01/19 Range/Units 04:42 Sodium 143 (137-145) mmol/L Potassium 4.0 (3.6-5.0) mmol/L Chloride 109.8 H (98-107) mmol/L Carbon Dioxide 25 (22-30) mmol/L BUN 16 (9-20) mg/dL Creatinine 1.1 (0.8-1.5) mg/dL Glucose 134 H (75-100) mg/dL Calcium 8.1 L (8.4-10.2) mg/dL AST 23 (5-40) units/L ALT 10 (7-56) units/L Alkaline Phosphatase 53 (35-129) units/L Total Protein 4.9 L (6.3-8.2) g/dL Albumin 2.3 L (3.9-5) g/dL - Imaging and Cardiology EKG: report reviewed, image reviewed Echo: report reviewed (12/29/2018: EF 45-50%) AV and intraventricular conduction: 1 AV block, intraventricular conducti Repolarization changes or abnormalities: nonspecific abnormality, ST segment, and/or T wave
--- NOTE | 2019-01-01 13:22 | Progress Note ---
Assessment and Plan Acute hypoxemic hypercapnic respiratory failure, on mechanical ventilation support. Bilateral pleural effusions, complex looking on the right. Right lung complete atelectasis. Right pneumonia, appears to be community-acquired. Severe sepsis with shock, on Levophed. Anemia that is normocytic present at presentation; however, I think that may be an abnormal lab value. Hypokalemia at presentation that may also be an abnormal lab value. Hypocalcemia at presentation that may also be abnormal lab value. Morbid obesity. History of diabetes. History of hypertension. Restless legs syndrome. Elevated D-dimer (CXR revealed significant re-expansion of right lung post chest tube placement) - discontinued seroquel re: lethargy today - hematology consulted re: persistent thrombocytopenia (no active bleeding noted) - sit up in chair-bed and place on SBT - extubate to BIPAP if ABG acceptable after 2 hours (even if pH is suboptimal) - IV hydralazine 10mg q4h prn SBP >/= 170 mmHg - schedule lasix 20 mg IV daily (home regimen is 40 mg p.o. daily) - cardiology evaluation ongoing (input appreciated) - continue Robinul and scopolamine to control secretions - continue daily SAT's & SBT assessment - continue chest tube to vacuum (1 liter in vacutainer) - further CT management per surgeon (input appreciated) - continue bronchodilators with pulmonary hygiene per RT - continue to wean supplemental oxygen to keep O2 sats 88-90% acutely - continue Lung protective strategies - Daily ABGs/CXR till more stable - continue empiric antibiotics for CAP / Sepsis - ID consult placed (input appreciated) - Follow tracheal aspirate, urine & blood cultures and adjust antibiotic therapy based on LEXI/ID - VAP bundle addressed - continue gentle volume resuscitation while monitoring hemodynamics - continue to wean vasopressor support for MAP> 65 mmHg - Sedation target for RASS 0 to -1 - continue Stress ulcer prophylaxis - continue VTE prophylaxis - continue tube feedings as tolerated - resume chronic home medications per attending - continue accuchecks with glycemic control for target glucose of 140-180 mg/dL - Maintenance of sleep -wake cycle - Mobility protocol as tolerated by hemodynamics for pressure ulcer prophylaxis - Influenza and pneumonia vaccination per protocol ..care plan discussed at length with in room .... re-evaluate in am & prn PROGNOSIS GUARDED CONDITION: CRITICAL CODE STATUS: FULL CODE The high probability of a clinically significant, sudden or life-threatening deterioration of the [respiratory, neurology,] system(s) required my full and di rect attention, intervention and personal management. The aggregate critical care time was [36] minutes without overlap. Time includes spent on; [x] Data Review and interpretation [x] Patient assessment and monitoring of vital signs [x] Documentation [x] Medication orders and management Subjective Date of service: 01/01/19 Principal diagnosis: Acute hypoxemic hypercapnic respiratory failure on MVS; Bilateral pleural e Interval history: Patient is seen today for: Acute hypoxemic hypercapnic respiratory failure on MVS; Bilateral pleural effusions, complex looking on the right; Right lung complete atelectasis; Right pneumonia (appears to be community-acquired); Severe sepsis with shock, on Levophed Seen and examined at bedside; 24hour events reviewed; nursing and respiratory care staff consulted; no adverse overnight events reported to me; resting in bed; remains on MVS; tenuously tolerating SBT; denies acute chest pains or palpitations; No N/V/F/C; lethargic at times Objective Vital Signs - 12hr 01/01/19 01/01/19 01/01/19 01:21 01:30 01:41 Temperature Pulse Rate 87 87 89 Pulse Rate [ From Monitor] Respiratory 12 12 14 Rate Blood Pressure 163/84 163/81 163/81 O2 Sat by Pulse 96 98 97 Oximetry 01/01/19 01/01/19 01/01/19 01:51 02:00 02:11 Temperature Pulse Rate 87 88 86 Pulse Rate [ From Monitor] Respiratory 13 12 14 Rate Blood Pressure 161/77 157/87 157/87 O2 Sat by Pulse 97 97 97 Oximetry 01/01/19 01/01/19 01/01/19 02:21 02:30 02:41 Temperature Pulse Rate 86 87 85 Pulse Rate [ From Monitor] Respiratory 13 15 13 Rate Blood Pressure 152/83 157/84 157/84 O2 Sat by Pulse 97 96 96 Oximetry 01/01/19 01/01/19 01/01/19 02:51 03:00 03:10 Temperature Pulse Rate 82 83 82 Pulse Rate [ From Monitor] Respiratory 14 14 14 Rate Blood Pressure 160/83 160/83 O2 Sat by Pulse 96 96 96 Oximetry 01/01/19 01/01/19 01/01/19 03:20 03:30 03:40 Temperature Pulse Rate 84 84 82 Pulse Rate [ From Monitor] Respiratory 13 13 13 Rate Blood Pressure 154/81 160/85 160/85 O2 Sat by Pulse 97 97 97 Oximetry 01/01/19 01/01/19 01/01/19 03:50 04:00 04:10 Temperature 98.6 F Pulse Rate 82 83 82 Pulse Rate [ 78 From Monitor] Respiratory 14 13 13 Rate Blood Pressure 156/83 159/83 159/83 O2 Sat by Pulse 97 97 97 Oximetry 01/01/19 01/01/19 01/01/19 04:18 04:20 04:30 Temperature Pulse Rate 92 H 90 86 Pulse Rate [ From Monitor] Respiratory 13 12 Rate Blood Pressure 160/99 160/99 159/83 O2 Sat by Pulse 97 98 98 Oximetry 01/01/19 01/01/19 01/01/19 04:40 04:50 05:00 Temperature Pulse Rate 84 88 77 Pulse Rate [ From Monitor] Respiratory 15 19 16 Rate Blood Pressure 161/89 136/85 140/81 O2 Sat by Pulse 99 98 98 Oximetry 01/01/19 01/01/19 01/01/19 05:10 05:20 05:30 Temperature Pulse Rate 78 91 H 88 Pulse Rate [ From Monitor] Respiratory 16 11 L 15 Rate Blood Pressure 140/81 145/76 140/117 O2 Sat by Pulse 98 Oximetry 01/01/19 01/01/19 01/01/19 05:40 05:50 06:00 Temperature Pulse Rate 81 75 81 Pulse Rate [ From Monitor] Respiratory 10 L 9 L 12 Rate Blood Pressure 140/117 142/74 153/84 O2 Sat by Pulse 97 97 Oximetry 01/01/19 01/01/19 01/01/19 06:10 06:20 06:30 Temperature Pulse Rate 92 H 80 81 Pulse Rate [ From Monitor] Respiratory 15 17 17 Rate Blood Pressure 153/84 182/98 166/95 O2 Sat by Pulse 97 97 95 Oximetry 01/01/19 01/01/19 01/01/19 06:40 06:50 07:00 Temperature Pulse Rate 76 77 81 Pulse Rate [ From Monitor] Respiratory 15 17 24 Rate Blood Pressure 166/95 164/98 154/91 O2 Sat by Pulse 98 98 98 Oximetry 01/01/19 01/01/19 01/01/19 07:10 07:20 07:30 Temperature Pulse Rate 75 90 75 Pulse Rate [ From Monitor] Respiratory 16 17 16 Rate Blood Pressure 154/91 161/83 160/93 O2 Sat by Pulse 98 98 99 Oximetry 01/01/19 01/01/19 01/01/19 07:40 07:48 07:50 Temperature 98.8 F Pulse Rate 71 70 Pulse Rate [ From Monitor] Respiratory 16 14 Rate Blood Pressure 154/91 148/74 O2 Sat by Pulse 98 99 Oximetry 01/01/19 01/01/19 01/01/19 08:00 08:06 08:10 Temperature Pulse Rate 70 90 74 Pulse Rate [ 75 From Monitor] Respiratory 14 14 Rate Blood Pressure 151/83 161/83 151/83 O2 Sat by Pulse 98 98 97 Oximetry 01/01/19 01/01/19 01/01/19 08:20 08:30 08:40 Temperature Pulse Rate 75 76 76 Pulse Rate [ From Monitor] Respiratory 15 16 16 Rate Blood Pressure 151/83 151/83 151/83 O2 Sat by Pulse 97 98 98 Oximetry 01/01/19 01/01/19 01/01/19 08:50 09:00 09:10 Temperature Pulse Rate 75 80 73 Pulse Rate [ From Monitor] Respiratory 18 16 17 Rate Blood Pressure 151/83 151/83 178/105 O2 Sat by Pulse 97 99 99 Oximetry 01/01/19 01/01/19 01/01/19 09:20 09:30 09:40 Temperature Pulse Rate 73 71 72 Pulse Rate [ From Monitor] Respiratory 16 16 16 Rate Blood Pressure 178/105 178/105 178/105 O2 Sat by Pulse 98 97 98 Oximetry 01/01/19 01/01/19 01/01/19 09:50 10:00 10:10 Temperature Pulse Rate 75 74 73 Pulse Rate [ From Monitor] Respiratory 9 L 13 15 Rate Blood Pressure 178/105 161/96 161/96 O2 Sat by Pulse 99 98 99 Oximetry 01/01/19 01/01/19 01/01/19 10:20 10:30 10:40 Temperature Pulse Rate 73 88 74 Pulse Rate [ From Monitor] Respiratory 15 14 16 Rate Blood Pressure 161/96 161/96 161/96 O2 Sat by Pulse 99 98 97 Oximetry 01/01/19 01/01/19 01/01/19 10:50 11:00 11:09 Temperature Pulse Rate 72 74 74 Pulse Rate [ From Monitor] Respiratory 16 14 14 Rate Blood Pressure 161/96 163/87 163/87 O2 Sat by Pulse 97 98 98 Oximetry 01/01/19 01/01/19 01/01/19 11:10 11:20 11:30 Temperature Pulse Rate 90 92 H 90 Pulse Rate [ From Monitor] Respiratory 17 17 17 Rate Blood Pressure 163/87 163/87 163/87 O2 Sat by Pulse 99 97 97 Oximetry 01/01/19 01/01/19 01/01/19 11:40 11:50 11:59 Temperature 98.9 F Pulse Rate 90 82 Pulse Rate [ From Monitor] Respiratory 19 19 Rate Blood Pressure 163/87 163/87 O2 Sat by Pulse 98 97 Oximetry 01/01/19 01/01/19 12:00 12:10 Temperature Pulse Rate 89 88 Pulse Rate [ 86 From Monitor] Respiratory 17 16 Rate Blood Pressure 163/87 163/87 O2 Sat by Pulse 99 96 Oximetry Constitutional: alert, appears uncomfortable, other (elderly looking morbidly obese CM normocephalic and with increased work of breathing at rest) Eyes: non-icteric ENT: oropharynx moist, oropharyngeal exudate pre, other (ETT 23 cm ANNE-MARIE) Neck: supple, no lymphadenopathy, no JVD, other (large neck circumference) Effort: mildly labored Ascultation: Bilateral: diminished breath sounds, rhonchi, other (Right chest tube) Percussion: Bilateral: not dull Cardiovascular: regular rate and rhythm, other (No R/M) Gastrointestinal: normoactive bowel sounds, soft, non-tender, non-distended Integumentary: normal Extremities: no cyanosis, pink and warm, pulses normal, no ischemia or petechiae, edema (1+) Neurologic: normal mental status, non-focal exam (grossly), pupils equal and round, CN II-XII normal, motor strength normal and Psychiatric: mood appropriate, affect normal CBC and BMP: 01/02/19 05:09 01/02/19 05:09 ABG, PT/INR, D-dimer: ABG POC ABG pH 7.278 (7.35-7.45) L 01/01/19 04:25 POC ABG pCO2 50.6 (35-45) H 01/01/19 04:25 POC ABG pO2 111 (80-105) H 01/01/19 04:25 POC ABG HCO3 23.7 (22-26 mml/L) 01/01/19 04:25 POC ABG Total CO2 25 (23-27mmol/L) 01/01/19 04:25 POC ABG O2 Sat 98 01/01/19 04:25 PT/INR, D-dimer PT 16.5 Sec. (12.2-14.9) H 12/30/18 18:17 INR 1.25 (0.87-1.13) H 12/30/18 18:17 D-Dimer 815.50 ng/mlDDU (0-234) H 12/28/18 23:58 Abnormal lab findings: Abnormal Labs 12/28/18 12/28/18 12/28/18 23:58 23:58 23:58 WBC RBC 2.24 L Hgb 6.7 L Hct 20.9 L RDW 16.4 H Plt Count 99 L Lymph % (Auto) 10.7 L [place] % (Auto) 7.9 H Lymph # 0.6 L [place] # Seg Neutrophils % 80.7 H PT INR D-Dimer 815.50 H Heparin Anti-Xa Level POC ABG pH POC ABG pCO2 POC ABG pO2 Sodium 148 H Potassium 2.3 L* Chloride 128.4 H Carbon Dioxide 12 L BUN Creatinine 0.4 L Glucose POC Glucose Lactic Acid Calcium 5.0 L* Total Bilirubin AST ALT < 5 L Lactate Dehydrogenase Total Creatine Kinase 44 L CK-MB (CK-2) CK-MB (CK-2) Rel Index 4.3 H Troponin T C-Reactive Protein NT-Pro-B Natriuret Pep Total Protein 2.3 L Albumin 1.1 L HDL Cholesterol Ur Specific [place] Urine WBC (Auto) Crossmatch 12/28/18 12/29/18 12/29/18 23:58 00:27 01:53 WBC RBC Hgb Hct RDW Plt Count Lymph % (Auto) [place] % (Auto) Lymph # [place] # Seg Neutrophils % PT INR D-Dimer Heparin Anti-Xa Level POC ABG pH 7.169 L POC ABG pCO2 POC ABG pO2 Sodium Potassium Chloride Carbon Dioxide BUN Creatinine Glucose POC Glucose Lactic Acid Calcium Total Bilirubin AST ALT Lactate Dehydrogenase Total Creatine Kinase CK-MB (CK-2) CK-MB (CK-2) Rel Index Troponin T C-Reactive Protein NT-Pro-B Natriuret Pep 1209 H Total Protein Albumin HDL Cholesterol Ur Specific [place] Urine WBC (Auto) Crossmatch See Detail 12/29/18 12/29/18 12/29/18 03:00 05:02 08:34 WBC RBC Hgb Hct RDW Plt Count Lymph % (Auto) [place] % (Auto) Lymph # [place] # Seg Neutrophils % PT INR D-Dimer Heparin Anti-Xa Level POC ABG pH 7.225 L POC ABG pCO2 57.9 H POC ABG pO2 Sodium Potassium Chloride Carbon Dioxide BUN Creatinine Glucose POC Glucose Lactic Acid Calcium Total Bilirubin AST ALT Lactate Dehydrogenase Total Creatine Kinase 344 H CK-MB (CK-2) 7.9 H CK-MB (CK-2) Rel Index Troponin T 0.103 H* D C-Reactive Protein NT-Pro-B Natriuret Pep Total Protein Albumin HDL Cholesterol 34 L Ur Specific [place] 1.033 H Urine WBC (Auto) 31.0 H Crossmatch 12/29/18 12/29/18 12/29/18 08:34 08:53 12:51 WBC RBC Hgb Hct RDW Plt Count Lymph % (Auto) [place] % (Auto) Lymph # [place] # Seg Neutrophils % PT INR D-Dimer Heparin Anti-Xa Level POC ABG pH POC ABG pCO2 POC ABG pO2 Sodium Potassium 5.7 H D Chloride Carbon Dioxide BUN 21 H Creatinine Glucose 124 H POC Glucose 119 H Lactic Acid Calcium Total Bilirubin AST ALT Lactate Dehydrogenase Total Creatine Kinase 837 H CK-MB (CK-2) 10.5 H CK-MB (CK-2) Rel Index Troponin T 0.084 H C-Reactive Protein NT-Pro-B Natriuret Pep Total Protein Albumin HDL Cholesterol Ur Specific [place] Urine WBC (Auto) Crossmatch 12/29/18 12/29/18 12/29/18 12:51 12:51 15:02 WBC RBC Hgb Hct RDW 16.0 H Plt Count Lymph % (Auto) [place] % (Auto) 13.3 H Lymph # [place] # 1.4 H Seg Neutrophils % PT INR D-Dimer Heparin Anti-Xa Level POC ABG pH POC ABG pCO2 POC ABG pO2 Sodium Potassium 5.4 H Chloride Carbon Dioxide 19 L 17 L BUN 21 H 21 H Creatinine Glucose 116 H 115 H POC Glucose Lactic Acid Calcium Total Bilirubin 1.50 H AST 43 H ALT Lactate Dehydrogenase 405 H Total Creatine Kinase CK-MB (CK-2) CK-MB (CK-2) Rel Index Troponin T C-Reactive Protein NT-Pro-B Natriuret Pep Total Protein 6.2 L D Albumin 3.1 L HDL Cholesterol Ur Specific [place] Urine WBC (Auto) Crossmatch 12/29/18 12/29/18 12/29/18 15:03 16:46 16:46 WBC RBC Hgb Hct RDW Plt Count Lymph % (Auto) [place] % (Auto) Lymph # [place] # Seg Neutrophils % PT INR D-Dimer Heparin Anti-Xa Level POC ABG pH POC ABG pCO2 POC ABG pO2 Sodium Potassium Chloride Carbon Dioxide BUN Creatinine Glucose POC Glucose 121 H Lactic Acid 2.70 H* Calcium Total Bilirubin AST ALT Lactate Dehydrogenase Total Creatine Kinase CK-MB (CK-2) CK-MB (CK-2) Rel Index Troponin T C-Reactive Protein 2.80 H NT-Pro-B Natriuret Pep Total Protein Albumin HDL Cholesterol Ur Specific [place] Urine WBC (Auto) Crossmatch 12/29/18 12/29/18 12/29/18 16:50 17:37 19:37 WBC RBC Hgb Hct RDW Plt Count Lymph % (Auto) [place] % (Auto) Lymph # [place] # Seg Neutrophils % PT INR D-Dimer Heparin Anti-Xa Level POC ABG pH POC ABG pCO2 POC ABG pO2 248 H Sodium Potassium Chloride Carbon Dioxide 21 L BUN 21 H Creatinine Glucose 123 H POC Glucose 113 H Lactic Acid Calcium Total Bilirubin AST ALT Lactate Dehydrogenase Total Creatine Kinase CK-MB (CK-2) CK-MB (CK-2) Rel Index Troponin T C-Reactive Protein NT-Pro-B Natriuret Pep Total Protein Albumin HDL Cholesterol Ur Specific [place] Urine WBC (Auto) Crossmatch 12/29/18 12/29/18 12/30/18 20:10 21:36 04:43 WBC RBC Hgb Hct RDW Plt Count Lymph % (Auto) [place] % (Auto) Lymph # [place] # Seg Neutrophils % PT INR D-Dimer Heparin Anti-Xa Level POC ABG pH 7.327 L POC ABG pCO2 POC ABG pO2 79 L Sodium Potassium Chloride Carbon Dioxide BUN Creatinine Glucose POC Glucose Lactic Acid 2.70 H* 2.80 H* Calcium Total Bilirubin AST ALT Lactate Dehydrogenase Total Creatine Kinase CK-MB (CK-2) CK-MB (CK-2) Rel Index Troponin T C-Reactive Protein NT-Pro-B Natriuret Pep Total Protein Albumin HDL Cholesterol Ur Specific [place] Urine WBC (Auto) Crossmatch 12/30/18 12/30/18 12/30/18 11:42 11:42 13:43 WBC RBC Hgb Hct RDW 16.4 H Plt Count 125 L Lymph % (Auto) [place] % (Auto) Lymph # [place] # Seg Neutrophils % PT INR D-Dimer Heparin Anti-Xa Level POC ABG pH 7.225 L POC ABG pCO2 54.7 H POC ABG pO2 Sodium Potassium Chloride 108.8 H Carbon Dioxide BUN Creatinine Glucose 105 H POC Glucose Lactic Acid Calcium 8.2 L Total Bilirubin AST ALT Lactate Dehydrogenase Total Creatine Kinase CK-MB (CK-2) CK-MB (CK-2) Rel Index Troponin T C-Reactive Protein NT-Pro-B Natriuret Pep Total Protein Albumin HDL Cholesterol Ur Specific [place] Urine WBC (Auto) Crossmatch 12/30/18 12/30/18 12/30/18 13:53 18:17 18:17 WBC RBC Hgb Hct RDW Plt Count 114 L Lymph % (Auto) [place] % (Auto) Lymph # [place] # Seg Neutrophils % PT 16.5 H INR 1.25 H D-Dimer Heparin Anti-Xa Level POC ABG pH POC ABG pCO2 POC ABG pO2 Sodium Potassium Chloride Carbon Dioxide BUN Creatinine Glucose POC Glucose Lactic Acid Calcium Total Bilirubin AST ALT Lactate Dehydrogenase Total Creatine Kinase CK-MB (CK-2) CK-MB (CK-2) Rel Index Troponin T 0.060 H D C-Reactive Protein NT-Pro-B Natriuret Pep Total Protein Albumin HDL Cholesterol Ur Specific [place] Urine WBC (Auto) Crossmatch 12/31/18 12/31/18 12/31/18 00:31 04:39 05:30 WBC RBC Hgb 10.9 L Hct 32.4 L RDW 16.1 H Plt Count 97 L Lymph % (Auto) [place] % (Auto) Lymph # [place] # Seg Neutrophils % PT INR D-Dimer Heparin Anti-Xa Level 0.12 L POC ABG pH 7.337 L POC ABG pCO2 POC ABG pO2 Sodium Potassium Chloride Carbon Dioxide BUN Creatinine Glucose POC Glucose Lactic Acid Calcium Total Bilirubin AST ALT Lactate Dehydrogenase Total Creatine Kinase CK-MB (CK-2) CK-MB (CK-2) Rel Index Troponin T C-Reactive Protein NT-Pro-B Natriuret Pep Total Protein Albumin HDL Cholesterol Ur Specific [place] Urine WBC (Auto) Crossmatch 12/31/18 12/31/18 12/31/18 05:30 16:27 18:40 WBC RBC Hgb Hct RDW Plt Count Lymph % (Auto) [place] % (Auto) Lymph # [place] # Seg Neutrophils % PT INR D-Dimer Heparin Anti-Xa Level POC ABG pH 7.246 L POC ABG pCO2 52.6 H POC ABG pO2 Sodium Potassium Chloride 110.5 H Carbon Dioxide BUN Creatinine Glucose 107 H POC Glucose 109 H Lactic Acid Calcium 8.2 L Total Bilirubin 1.30 H AST ALT Lactate Dehydrogenase Total Creatine Kinase CK-MB (CK-2) CK-MB (CK-2) Rel Index Troponin T C-Reactive Protein NT-Pro-B Natriuret Pep Total Protein 5.1 L Albumin 2.3 L HDL Cholesterol Ur Specific [place] Urine WBC (Auto) Crossmatch 12/31/18 01/01/19 01/01/19 21:37 03:05 04:25 WBC RBC Hgb Hct RDW Plt Count Lymph % (Auto) [place] % (Auto) Lymph # [place] # Seg Neutrophils % PT INR D-Dimer Heparin Anti-Xa Level POC ABG pH 7.278 L POC ABG pCO2 50.6 H POC ABG pO2 111 H Sodium Potassium Chloride Carbon Dioxide BUN Creatinine Glucose POC Glucose 108 H 147 H Lactic Acid Calcium Total Bilirubin AST ALT Lactate Dehydrogenase Total Creatine Kinase CK-MB (CK-2) CK-MB (CK-2) Rel Index Troponin T C-Reactive Protein NT-Pro-B Natriuret Pep Total Protein Albumin HDL Cholesterol Ur Specific [place] Urine WBC (Auto) Crossmatch 01/01/19 01/01/19 01/01/19 04:42 04:42 06:32 WBC 3.9 L RBC 3.54 L Hgb 10.7 L Hct 31.6 L RDW 16.3 H Plt Count 83 L Lymph % (Auto) [place] % (Auto) Lymph # [place] # Seg Neutrophils % PT INR D-Dimer Heparin Anti-Xa Level POC ABG pH POC ABG pCO2 POC ABG pO2 Sodium Potassium Chloride 109.8 H Carbon Dioxide BUN Creatinine Glucose 134 H POC Glucose 143 H Lactic Acid Calcium 8.1 L Total Bilirubin AST ALT Lactate Dehydrogenase Total Creatine Kinase CK-MB (CK-2) CK-MB (CK-2) Rel Index Troponin T C-Reactive Protein NT-Pro-B Natriuret Pep Total Protein 4.9 L Albumin 2.3 L HDL Cholesterol Ur Specific [place] Urine WBC (Auto) Crossmatch 01/01/19 01/01/19 07:33 11:37 WBC RBC Hgb Hct RDW Plt Count Lymph % (Auto) [place] % (Auto) Lymph # [place] # Seg Neutrophils % PT INR D-Dimer Heparin Anti-Xa Level POC ABG pH POC ABG pCO2 POC ABG pO2 Sodium Potassium Chloride Carbon Dioxide BUN Creatinine Glucose POC Glucose 137 H 133 H Lactic Acid Calcium Total Bilirubin AST ALT Lactate Dehydrogenase Total Creatine Kinase CK-MB (CK-2) CK-MB (CK-2) Rel Index Troponin T C-Reactive Protein NT-Pro-B Natriuret Pep Total Protein Albumin HDL Cholesterol Ur Specific [place] Urine WBC (Auto) Crossmatch Chest x-ray: image reviewed (Chest tube in good position) Allied health notes reviewed: nursing
[2019-01-01] MEDS ORDERED: APRESOLINE IV PRN (13:23)
[2019-01-01] MEDS: LASIX IV SCH (13:45)
--- NOTE | 2019-01-01 14:35 | XRay Report ---
Comparison of the current study with the prior examination of 12/31/18 shows no appreciable interval change.
[2019-01-01] MEDS: DUONEB *Not for PRN Use IH SCH (14:49)
--- NOTE | 2019-01-01 16:25 | Event Note ---
Date: 01/01/19 [id number]
[2019-01-01] MEDS ORDERED: TRIPLE ANTIBIOTIC TP ONE (17:13)
[2019-01-01] MEDS: ARIXTRA SUB-Q SCH ×2 (22:23)
[2019-01-02] MEDS: DUONEB *Not for PRN Use IH SCH ×5 (00:06→19:22)
[2019-01-02] MEDS: SUBLIMAZE IV PRN (00:23)
--- NOTE | 2019-01-02 00:38 | Ultrasound Report ---
PROCEDURE: US LIMITED ABDOMEN FOR ASCITES TECHNIQUE: Real-time sonography in multiple planes of the four quadrants of the abdomen for fluid wa s performed with image documentation. CPT 34226 HISTORY: Abdominal pain COMPARISONS: None . FINDINGS: Limited examination consisting of 11 images of the liver and pancreas area. No discrete liver mass is identified. Pancreas is not identified. There is no demonstration of spleen, gallbladder, bile ducts or kidneys. There is no ascites. IMPRESSION: Limited study. No ascites. . This document is electronically signed by David Samayoa MD., January 02 2019 12:36:29 AM ET
[2019-01-02] MEDS: HumuLIN R SUB-Q SCH ×5 (01:20→21:45)
[2019-01-02 06:01] LABS: Basophils % (Auto) 0.5 % (0.0-1.8); Eosinophils # (Auto) 0.1 K/mm3 (0.0-0.4); Eosinophils % (Auto) 1.3 % (0.0-4.3); Hematocrit 36.7 % (35.5-45.6); Hemoglobin 12.1 gm/dl (11.8-15.2); Lymphocytes # (Auto) 0.3 K/mm3 (1.2-5.4); Lymphocytes % (Auto) 7.5 % (13.4-35.0); Mean Corpuscular HGB Conc 33 % (32-34); Mean Corpuscular Volume 90 fl (84-94); Monocytes # (Auto) 0.6 K/mm3 (0.0-0.8); Monocytes % (Auto) 14.2 % (0.0-7.3); Red Blood Count 4.09 M/mm3 (3.65-5.03); Red Cell Distribution Width 16.1 % (13.2-15.2)
--- NOTE | 2019-01-02 06:08 | Consultation ---
REFERRING PHYSICIAN: Dr. Doss REASON FOR CONSULTATION: Low platelets, bilateral leg deep venous thrombosis. HISTORY OF PRESENT ILLNESS: I saw this patient, a 73-year-old male in the ICU. The patient's daughter was present. He was brought unresponsive, he was found on the floor. EMS gave respiratory support and he felt better. The patient was brought to the ICU. Cardiology team saw the patient. At admission, the patient's platelets were low. The patient was placed on heparin for cardiac reasons. He was intubated for his respiratory issues. CT chest was done, there was no PE. Leg Doppler was done. There is a right peroneal vein and left femoral vein DVT. I have been asked to evaluate the patient. The patient's platelet count is down to 83. Review of trend of platelet shows it was 99 at admission, then 119 and then came down. REVIEW OF SYSTEMS: At this time, the patient is intubated, alert, looks at you. Review of systems is not reliable because of the patient's intubation. No bleeding. No chest pain at this time. No abdominal pain. Has leg swelling. PAST MEDICAL HISTORY: Hypertension, coronary artery disease, NH, diabetes, arthritis. PAST SURGICAL HISTORY: Coronary artery bypass graft. FAMILY HISTORY: Noncontributory. SOCIAL HISTORY: Lives with family members. No history of tobacco or alcohol usage. ALLERGIES: PENICILLIN. PRESENT MEDICATIONS: Include Cefepime, Pepcid, Lasix, and hydralazine. PHYSICAL EXAMINATION: VITAL SIGNS: Temperature 99.1, pulse 102, respirations 23, BP 150/97. HEENT: Mild pallor, no icterus. NECK: No neck lymph nodes, intubated. CARDIOVASCULAR: S1, S2. LUNGS: rt chest tube, decreased air entry ABDOMEN: Obese. EXTREMITIES: Legs swelling present. NEUROLOGIC: Alert, awake, looks at you. LABORATORY DATA: White cell 3.9, hemoglobin 10.7, MCV 89, and platelets 83. Potassium 4, creatinine 1.1, bilirubin 0.6. RADIOLOGY DATA: Leg Doppler was done. This showed right peroneal vein DVT and left common femoral vein DVT. Chest CT, no PE. ASSESSMENT AND PLAN: 1. Deep venous thrombosis, left common femoral and right peroneal; bilateral leg swelling present. The patient was placed on heparin drip. Her platelets have slightly fallen down. We will change to Arixtra in the interim. 2. The patient's platelet count at admission was 99 and then 196, 125, and 114. I do not have any information about the patient's baseline platelet count. We will do HIT investigation, it is possible that the patient's baseline platelets are also low. We will do ultrasound abdomen for liver and spleen size. 3. History of diabetes. 4. History of coronary artery disease. 5. Radiology shows right pleural effusion. 6. History of seizure disorder as per the notes. 7. Myocardial infarction. 8. Status post coronary artery bypass graft. 9. Electrolyte imbalance. 10. History of cerebrovascular accident. 11. History of pneumonia. 12. rt chest tube - h/o pl effusion We will place the patient on Arixtra, pharmacy to dose. We will stop heparin drip and follow the patient. We will do deficiency investigations. JOB# [id number] PHI/GRISELDA RAMOS
[2019-01-02 06:10] LABS: Platelet Count 94 K/mm3 (140-440)
[2019-01-02 06:24] LABS: BUN/Creatinine Ratio 15; Blood Urea Nitrogen 15 mg/dL (9-20); Calcium 8.3 mg/dL (8.4-10.2); Hemolysis Index 3; Iron 34 ug/dL (49-181)
[2019-01-02 06:25] LABS: Total Iron Binding Capacity 231 mcg/dL (250-450)
--- NOTE | 2019-01-02 07:32 | Hem/Onc Progress Note ---
Assessment and Plan 1. Deep venous thrombosis, left common femoral and right peroneal; bilateral leg swelling present. The patient was placed on heparin drip. Her platelets have slightly fallen down. 2. The patient's platelet count at admission was 99 and then 196, 125, and 114. I do not have any information about the patient's baseline platelet count. HIT investigation, it is possible that the patient's baseline platelets are also low. 3. History of diabetes. 4. History of coronary artery disease. 5. Radiology shows right pleural effusion. 6. History of seizure disorder as per the notes. 7. Myocardial infarction. 8. Status post coronary artery bypass graft. 9. Electrolyte imbalance. 10. History of cerebrovascular accident. 11. History of pneumonia. 12. rt chest tube - h/o pl effusion arixtra plt 90s US abdo limited - does not mention liver and spleen size. HIT antibodies ordered extubated rt chest tube+ I dont htink this is HIT - as at admission also plt were low - Patient Problems (1) DVT (deep venous thrombosis) Current Visit: Yes Status: Acute (2) Thrombocytopenia Current Visit: Yes Status: Acute Subjective Date of service: 01/02/19 Objective - Constitutional Vitals: Last Vital Signs Temp 99.9 F H 01/02/19 04:00 Pulse 117 H 01/02/19 05:10 Resp 22 01/02/19 05:10 BP 126/82 01/02/19 05:10 Pulse Ox 98 01/02/19 05:10 Pain Intensity (0-10): denies any pain General appearance: no acute distress Performance status: 3-limited selfcare - EENT Eyes: EOM intact ENT: other (on CPAP) Lymph node exam: negative cervical - Neck Neck: normal ROM - Respiratory Respiratory effort: Positive: normal Respiratory: bilateral: diminished - Cardiovascular Heart Sounds: Present: S1 & S2 Extremity abnormal: edema - Gastrointestinal General gastrointestinal: Present: soft, other (obese) Rectal Exam: deferred - Genitourinary Male genitourinary: Present: deferred - Integumentary Integumentary: warm - Musculoskeletal Musculoskeletal: generalized weakness - Neurologic Neurologic: moves all extremities - Labs Lab Results: Laboratory Results - last 24 hr 12/31/18 01/01/19 01/01/19 05:30 06:32 07:23 WBC RBC Hgb Hct MCV MCH MCHC RDW Plt Count Lymph % (Auto) [place] % (Auto) Eos % (Auto) Baso % (Auto) Lymph # [place] # Eos # Baso # Seg Neutrophils % Seg Neutrophils # Heparin Anti-Xa Level 0.37 POC ABG pH POC ABG pCO2 POC ABG pO2 POC ABG HCO3 POC ABG Total CO2 POC ABG O2 Sat POC ABG Base Excess FiO2 Sodium Potassium Chloride Carbon Dioxide Anion Gap BUN Creatinine Estimated GFR BUN/Creatinine Ratio Glucose POC Glucose 143 H Calcium Iron TIBC Urine Legionella Ag Not detected 01/01/19 01/01/19 01/01/19 07:33 11:37 13:55 WBC RBC Hgb Hct MCV MCH MCHC RDW Plt Count Lymph % (Auto) [place] % (Auto) Eos % (Auto) Baso % (Auto) Lymph # [place] # Eos # Baso # Seg Neutrophils % Seg Neutrophils # Heparin Anti-Xa Level POC ABG pH 7.242 L POC ABG pCO2 55.3 H POC ABG pO2 94 POC ABG HCO3 23.8 POC ABG Total CO2 25 POC ABG O2 Sat 96 POC ABG Base Excess -4 FiO2 35 Sodium Potassium Chloride Carbon Dioxide Anion Gap BUN Creatinine Estimated GFR BUN/Creatinine Ratio Glucose POC Glucose 137 H 133 H Calcium Iron TIBC Urine Legionella Ag 01/01/19 01/01/19 01/01/19 15:44 16:51 21:35 WBC RBC Hgb Hct MCV MCH MCHC RDW Plt Count Lymph % (Auto) [place] % (Auto) Eos % (Auto) Baso % (Auto) Lymph # [place] # Eos # Baso # Seg Neutrophils % Seg Neutrophils # Heparin Anti-Xa Level POC ABG pH 7.298 L POC ABG pCO2 50.6 H POC ABG pO2 90 POC ABG HCO3 24.8 POC ABG Total CO2 26 POC ABG O2 Sat 96 POC ABG Base Excess -2 FiO2 35 Sodium Potassium Chloride Carbon Dioxide Anion Gap BUN Creatinine Estimated GFR BUN/Creatinine Ratio Glucose POC Glucose 139 H 106 H Calcium Iron TIBC Urine Legionella Ag 01/02/19 01/02/19 01/02/19 03:13 04:40 05:09 WBC RBC Hgb Hct MCV MCH MCHC RDW Plt Count Lymph % (Auto) [place] % (Auto) Eos % (Auto) Baso % (Auto) Lymph # [place] # Eos # Baso # Seg Neutrophils % Seg Neutrophils # Heparin Anti-Xa Level 0.70 POC ABG pH 7.206 L POC ABG pCO2 65.8 H POC ABG pO2 62 L POC ABG HCO3 26.1 POC ABG Total CO2 28 POC ABG O2 Sat 85 POC ABG Base Excess -2 FiO2 30 Sodium Potassium Chloride Carbon Dioxide Anion Gap BUN Creatinine Estimated GFR BUN/Creatinine Ratio Glucose POC Glucose 124 H Calcium Iron TIBC Urine Legionella Ag 01/02/19 01/02/19 01/02/19 05:09 05:09 05:32 WBC 3.9 L RBC 4.09 Hgb 12.1 Hct 36.7 MCV 90 MCH 30 MCHC 33 RDW 16.1 H Plt Count 94 L Lymph % (Auto) 7.5 L [place] % (Auto) 14.2 H Eos % (Auto) 1.3 Baso % (Auto) 0.5 Lymph # 0.3 L [place] # 0.6 Eos # 0.1 Baso # 0.0 Seg Neutrophils % 76.5 H Seg Neutrophils # 3.0 Heparin Anti-Xa Level POC ABG pH POC ABG pCO2 POC ABG pO2 POC ABG HCO3 POC ABG Total CO2 POC ABG O2 Sat POC ABG Base Excess FiO2 Sodium 144 Potassium 4.1 Chloride 107.4 H Carbon Dioxide 26 Anion Gap 15 BUN 15 Creatinine 1.0 Estimated GFR > 60 BUN/Creatinine Ratio 15 Glucose 133 H POC Glucose 130 H Calcium 8.3 L Iron 34 L TIBC 231 L Urine Legionella Ag Medications & Allergies - Medications Allergies/Adverse Reactions: Allergies Penicillins Allergy (Verified 12/29/18 04:18) Unknown Home Medications: Home Medications Medication Instructions Recorded Confirmed Last Taken Type Aspirin 81 mg PO DAILY 12/30/18 12/30/18 12/30/18 History AtorvaSTATin 40 mg PO HS 12/30/18 12/30/18 12/28/18 History Clopidogrel Bisulfate [Clopidogrel] 75 mg PO DAILY 12/30/18 12/30/18 12/28/18 History Furosemide 40 mg PO DAILY 12/30/18 12/30/18 12/28/18 History Metformin ER (Nf) 500 gm .ROUTE BID 12/30/18 12/30/18 12/28/18 History Metoprolol 50 mg PO DAILY 12/30/18 12/30/18 12/28/18 History Potassium 10 meq PO DAILY 12/30/18 12/30/18 12/28/18 History RX: Gabapentin [Neurontin] 300 mg PO HS 12/30/18 12/30/18 12/28/18 History RX: Losartan [Cozaar] 50 mg .ROUTE DAILY 12/30/18 12/30/18 12/28/18 History RX: Ropinirole HCl 1 mg PO DAILY 12/30/18 12/30/18 12/28/18 History Sertraline 25 mg PO DAILY 12/30/18 12/30/18 12/28/18 History Sertraline 75 mg PO DAILY 12/30/18 12/30/18 12/28/18 History Active Medications: Generic Name Dose Route Start Last Admin Trade Name Freq PRN Reason Stop Dose Admin Acetaminophen 650 mg 12/29/18 04:49 12/30/18 08:33 Tylenol CA 650 mg Q4H PRN Administration Fever >101 Albuterol/Ipratropium 1 ampul 01/01/19 14:00 01/02/19 04:49 Duoneb *Not For Prn Use* IH 1 ampul Q6HRT WENDY Administration Lipase/Protease/Amylase 1 each 12/31/18 15:06 Pancreaze 10,500 Unit FEEDTUBE PRN PRN For Clogged Feeding Tube Dextrose 50 ml 12/29/18 04:47 D50w (25gm) Syringe IV PRN PRN Hypoglycemia Famotidine 20 mg 01/01/19 10:00 01/01/19 21:56 Pepcid PO 20 mg BID WENDY Administration Fentanyl 25 mcg 12/30/18 14:26 01/02/19 00:23 Sublimaze IV 25 mcg Q2H PRN Administration Pain , Severe (7-10) Fondaparinux 7.5 mg 01/01/19 22:00 01/01/19 22:23 Arixtra SUB-Q 7.5 mg Q24H WENDY Administration Fondaparinux 2.5 mg 01/01/19 22:00 01/01/19 22:23 Arixtra SUB-Q 2.5 mg Q24H WENDY Administration Furosemide 20 mg 01/01/19 14:00 01/01/19 13:45 Lasix IV 20 mg QDAY WENDY Administration Glycopyrrolate 1 mg 12/31/18 14:00 01/01/19 21:55 Robinul PO 1 mg TID WENDY Administration Hydralazine HCl 10 mg 01/01/19 13:23 Apresoline IV Q4HR PRN SBP >/=170 Norepinephrine 4 mg in 250 mls @ 37.5 mls/hr 12/29/18 20:00 01/01/19 07:00 Levophed Drip 4 Mg/Ns 250 Ml IV Infused TITR WENDY Titration Protocol 10 MCG/MIN Metronidazole 500 mg in 100 mls @ 100 mls/hr 12/30/18 14:00 01/01/19 21:57 Flagyl 500 Mg/100 Ml IV 100 mls/hr Q8HR WENDY Administration Protocol Cefepime HCl 2 gm in 100 mls @ 200 mls/hr 12/31/18 14:00 01/01/19 21:57 Maxipime/Ns 2 Gm/100 Ml IV 200 mls/hr Q8HR [facility] Administration Protocol Insulin Human Regular 0 units 12/29/18 05:00 01/01/19 21:56 Humulin R SUB-Q Not Given Q4H [facility] Protocol Levetiracetam 500 mg 01/02/19 10:00 Keppra PO BID WENDY Ondansetron HCl 4 mg 12/29/18 04:49 Zofran IV Q8H PRN Nausea And Vomiting Quetiapine Fumarate 100 mg 12/31/18 22:00 01/01/19 21:56 Seroquel PO 100 mg QHS WENDY Administration Scopolamine 1 each 12/31/18 13:00 12/31/18 13:42 Transderm-Scop TD 1 each Q3D WENDY Administration Simple Syrup 15 ml 12/31/18 15:06 Simple Syrup FEEDTUBE PRN PRN Hypoglycemia Simple Syrup 30 ml 12/31/18 15:06 Simple Syrup FEEDTUBE PRN PRN Hypoglycemia Sodium Bicarbonate 325 mg 12/31/18 15:06 Sodium Bicarbonate FEEDTUBE PRN PRN For Clogged Feeding Tube
--- NOTE | 2019-01-02 08:12 | Progress Note ---
Assessment and Plan Cultures: 12/28/2018 sputum culture: Normal respiratory ramses 12/29/2018 right pleural fluid culture: No growth in 24 hours / no organisms, no PMN, few mononuclear cells 12/29/2018 blood culture: no growth 12/29/2018 urine culture: No growth in 24 hours A/P: 73-year-old male with history of morbid obesity, ELIGIO on CPAP, CAD s/p CABG, diabetes, restless leg syndrome was brought to the emergency room on 12/28/2018 with a respiratory arrest: 1) Shock, etiology unclear: septic v/s cardiogenic. No fever prior to admission, no leucocytosis. Fever resolved. Unclear etiology?. Large R pleural effusion, ?underlying pneumonia. No urinary symptoms, urine culture with no growth (UA with some pyuria). 2) Acute respiratory failure: better; on the vent. 3) Large R pleural effusion: s/p thoracentesis and chest tube on 12/29/2018. Cannot rule out underlying pneumonia v/s aspiration from seizure. Pleural fluid studies pending/no sent. Pleural Gram stain not c/w empyema. Pleural culture so far negative. 12/28/2018 sputum culture showed Normal respiratory ramses. 4) ?Seizures: per family with previous history of seizures. Neurology on board. 5) PCN allergy: remote allergy as a child. agreeable to try Cephalosporins. 6) Thrombocytopenia: worsening ? meds Recs: continue IV Cefepime 2 gm q8 hrs + IV Flagyl 500 mg q8 hrs D4 of 10 remove baird monitor platelets Will follow Alyssa Cruz MD Infectious Diseases [employer] [facility], [place] ([facility] M [phone] O [phone] Subjective Date of service: 01/02/19 Principal diagnosis: Acute hypoxemic hypercapnic respiratory failure on MVS; Bilateral pleural e Interval history: Extubated on CPAP, alert, daughter at bedside. No fever for 3 days. ROS: unable to obtain Objective - Exam Narrative Exam: General appearance: alert on BIPAP Eyes: anicteric sclerae, moist conjunctivae; no lid-lag; PERRLA HENT: Atraumatic; oropharynx limited Neck: Trachea midline; supple, no thyromegaly or lymphadenopathy Lungs: coarse himanshu, with + right sided chest tube bloody fluid CV: RRR Abdomen: Soft, obses non-tender Extremities: himanshu arm/legs edema Skin: himanshu arms ecchymoses Psych: alert mildly agitated Neuro: alert follows commands midline/baird - Constitutional Vitals: Vital Signs Temp Pulse Resp BP Pulse Ox 99.9 F H 117 H 22 126/82 98 01/02/19 04:00 01/02/19 05:10 01/02/19 05:10 01/02/19 05:10 01/02/19 05:10 Temperature -Last 24 Hours Temperature 99.9 F Temperature 98.9 F Temperature 99.1 F Temperature 99.1 F Temperature 98.3 F Temperature 98.9 F - Labs CBC & Chem 7: 01/02/19 05:09 01/02/19 05:09 Labs: Abnormal lab results 01/01/19 01/01/19 01/01/19 Range/Units 11:37 13:55 15:44 WBC (4.5-11.0) K/mm3 RDW (13.2-15.2) % Plt Count (140-440) K/mm3 Lymph % (Auto) (13.4-35.0) % [place] % (Auto) (0.0-7.3) % Lymph # (1.2-5.4) K/mm3 Seg Neutrophils % (40.0-70.0) % POC ABG pH 7.242 L (7.35-7.45) POC ABG pCO2 55.3 H (35-45) POC ABG pO2 (80-105) Chloride (98-107) mmol/L Glucose (75-100) mg/dL POC Glucose 133 H 139 H (70-105) Calcium (8.4-10.2) mg/dL Iron (49-181) ug/dL TIBC (250-450) mcg/dL 01/01/19 01/01/19 01/02/19 Range/Units 16:51 21:35 03:13 WBC (4.5-11.0) K/mm3 RDW (13.2-15.2) % Plt Count (140-440) K/mm3 Lymph % (Auto) (13.4-35.0) % [place] % (Auto) (0.0-7.3) % Lymph # (1.2-5.4) K/mm3 Seg Neutrophils % (40.0-70.0) % POC ABG pH 7.298 L (7.35-7.45) POC ABG pCO2 50.6 H (35-45) POC ABG pO2 (80-105) Chloride (98-107) mmol/L Glucose (75-100) mg/dL POC Glucose 106 H 124 H (70-105) Calcium (8.4-10.2) mg/dL Iron (49-181) ug/dL TIBC (250-450) mcg/dL 01/02/19 01/02/19 01/02/19 Range/Units 04:40 05:09 05:09 WBC 3.9 L (4.5-11.0) K/mm3 RDW 16.1 H (13.2-15.2) % Plt Count 94 L (140-440) K/mm3 Lymph % (Auto) 7.5 L (13.4-35.0) % [place] % (Auto) 14.2 H (0.0-7.3) % Lymph # 0.3 L (1.2-5.4) K/mm3 Seg Neutrophils % 76.5 H (40.0-70.0) % POC ABG pH 7.206 L (7.35-7.45) POC ABG pCO2 65.8 H (35-45) POC ABG pO2 62 L (80-105) Chloride 107.4 H (98-107) mmol/L Glucose 133 H (75-100) mg/dL POC Glucose (70-105) Calcium 8.3 L (8.4-10.2) mg/dL Iron 34 L (49-181) ug/dL TIBC 231 L (250-450) mcg/dL 01/02/19 Range/Units 05:32 WBC (4.5-11.0) K/mm3 RDW (13.2-15.2) % Plt Count (140-440) K/mm3 Lymph % (Auto) (13.4-35.0) % [place] % (Auto) (0.0-7.3) % Lymph # (1.2-5.4) K/mm3 Seg Neutrophils % (40.0-70.0) % POC ABG pH (7.35-7.45) POC ABG pCO2 (35-45) POC ABG pO2 (80-105) Chloride (98-107) mmol/L Glucose (75-100) mg/dL POC Glucose 130 H (70-105) Calcium (8.4-10.2) mg/dL Iron (49-181) ug/dL TIBC (250-450) mcg/dL
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
--- NOTE | 2019-01-02 08:54 | Consultation ---
History of Present Illness - Reason for Consult Consult date: 01/02/19 DVT and thrombocytopenia - History of Present Illness The patient is a 73-year-old male with history of morbid obesity, ELIGIO on CPAP, CAD s/p CABG, diabetes, restless leg syndrome was brought to the emergency room on 12/28/2018 with a respiratory arrest. Apparently, he was brought by EMS, was found to have agonal breathing, received bag valve mask ventilation. Pt was intubated in the ER and started on mechanical ventilation. A chest x-ray on admission, showed complete opacification of right hemithorax. CTA chest also re vealed bilateral pleural effusions, atelectasis right lung and right sided pleural effusion. He was also hypotensive requiring levophed. Patient was seen by general surgery, underwent right-sided chest tube placement on 12/29/2018, large amount of thin, orange fluid was drained. Infectious diseases was consulted due to concerns for severe sepsis and also with pneumonia. There is also some question of seizures at home, neurology was consulted. Vascular consulted for bilateral lower extremity DVTs and thrombocytopenia. Reviewed ultrasound, bilateral lower extremity DVT identified, with left side involving the common femoral vein. Noted thrombocytopenia and transition to Fondaparinox. Past History Past Medical History: acute [place] (h/o), arthritis, CAD, diabetes, hypertension, other (restless leg syndrome) Past Surgical History: cholecystectomy (open), CABG, Other (Left CEA. ) Social history: denies: smoking, alcohol abuse Family history: no significant family history Medications and Allergies Allergies Allergy/AdvReac Type Severity Reaction Status Date / Time Penicillins Allergy Unknown Verified 12/29/18 04:18 Home Medications Medication Instructions Recorded Confirmed Last Taken Type Aspirin 81 mg PO DAILY 12/30/18 12/30/18 12/30/18 History AtorvaSTATin 40 mg PO HS 12/30/18 12/30/18 12/28/18 History Clopidogrel Bisulfate [Clopidogrel] 75 mg PO DAILY 12/30/18 12/30/18 12/28/18 History Furosemide 40 mg PO DAILY 12/30/18 12/30/18 12/28/18 History Gabapentin [Neurontin] 300 mg PO HS 12/30/18 12/30/18 12/28/18 History Losartan [Cozaar] 50 mg .ROUTE DAILY 12/30/18 12/30/18 12/28/18 History Metformin ER (Nf) 500 gm .ROUTE BID 12/30/18 12/30/18 12/28/18 History Metoprolol 50 mg PO DAILY 12/30/18 12/30/18 12/28/18 History Potassium 10 meq PO DAILY 12/30/18 12/30/18 12/28/18 History Ropinirole HCl 1 mg PO DAILY 12/30/18 12/30/18 12/28/18 History Sertraline 25 mg PO DAILY 12/30/18 12/30/18 12/28/18 History Sertraline 75 mg PO DAILY 12/30/18 12/30/18 12/28/18 History Active Meds: Active Medications Acetaminophen (Tylenol) 650 mg MN Q4H PRN PRN Reason: Fever >101 Last Admin: 12/30/18 08:33 Dose: 650 mg Documented by: Albuterol/Ipratropium (Duoneb *Not For Prn Use*) 1 ampul IH Q6HRT [facility] Last Admin: 01/02/19 08:20 Dose: 1 ampul Documented by: Lipase/Protease/Amylase (Jo [place]avez 10,500 Unit) 1 each FEEDTUBE PRN PRN PRN Reason: For Clogged Feeding Tube Dextrose (D50w (25gm) Syringe) 50 ml IV PRN PRN PRN Reason: Hypoglycemia Famotidine (Pepcid) 20 mg PO BID [facility] Last Admin: 01/01/19 21:56 Dose: 20 mg Documented by: Fentanyl (Sublimaze) 25 mcg IV Q2H PRN PRN Reason: Pain , Severe (7-10) Last Admin: 01/02/19 00:23 Dose: 25 mcg Documented by: Fondaparinux (Arixtra) 7.5 mg SUB-Q Q24H [facility] Last Admin: 01/01/19 22:23 Dose: 7.5 mg Documented by: Fondaparinux (Arixtra) 2.5 mg SUB-Q Q24H [facility] Last Admin: 01/01/19 22:23 Dose: 2.5 mg Documented by: Furosemide (Lasix) 20 mg IV QDAY [facility] Last Admin: 01/01/19 13:45 Dose: 20 mg Documented by: Glycopyrrolate (Robinul) 1 mg PO TID [facility] Last Admin: 01/01/19 21:55 Dose: 1 mg Documented by: Hydralazine HCl (Apresoline) 10 mg IV Q4HR PRN PRN Reason: SBP >/=170 Norepinephrine (Levophed Drip 4 Mg/Ns 250 Ml) 4 mg in 250 mls @ 37.5 mls/hr IV TITR [facility]; Protocol Last Titration: 01/01/19 07:00 Dose: Infused Documented by: Metronidazole (Flagyl 500 Mg/100 Ml) 500 mg in 100 mls @ 100 mls/hr IV Q8HR [facility]; Protocol Last Admin: 01/01/19 21:57 Dose: 100 mls/hr Documented by: Cefepime HCl (Maxipime/Ns 2 Gm/100 Ml) 2 gm in 100 mls @ 200 mls/hr IV Q8HR [facility]; Protocol Last Admin: 01/01/19 21:57 Dose: 200 mls/hr Documented by: Insulin Human Regular (Humulin R) 0 units SUB-Q Q4H [facility]; Protocol Last Admin: 01/01/19 21:56 Dose: Not Given Documented by: Levetiracetam (Keppra) 500 mg PO BID [facility] Ondansetron HCl (Zofran) 4 mg IV Q8H PRN PRN Reason: Nausea And Vomiting Quetiapine Fumarate (Seroquel) 100 mg PO QHS [facility] Last Admin: 01/01/19 21:56 Dose: 100 mg Documented by: Scopolamine (Transderm-Scop) 1 each TD Q3D [facility] Last Admin: 12/31/18 13:42 Dose: 1 each Documented by: Simple Syrup (Simple Syrup) 15 ml FEEDTUBE PRN PRN PRN Reason: Hypoglycemia Simple Syrup (Simple Syrup) 30 ml FEEDTUBE PRN PRN PRN Reason: Hypoglycemia Sodium Bicarbonate (Sodium Bicarbonate) 325 mg FEEDTUBE PRN PRN PRN Reason: For Clogged Feeding Tube Review of Systems ROS unobtainable: due to mental status Exam - Constitutional Vitals: Temp Pulse Resp BP Pulse Ox 98.0 F 94 H 30 H 144/68 98 01/02/19 08:00 01/02/19 08:32 01/02/19 08:32 01/02/19 08:17 01/02/19 08:17 General appearance: Present: no acute distress, other (on BiPAP) - Respiratory Respiratory effort: other (on BiPAP) - Extremities Extremities: normal color, abnormal (right pedal pulses palpable, left pedal pulses nonpalpable ) - Abdominal General gastrointestinal: Present: other (obese) - Psychiatric Psychiatric: other (BiPAP, cannot wake him up, sedated overnight for anxiety) Results - Labs CBC & Chem 7: 01/02/19 05:09 01/02/19 05:09 Labs: Abnormal lab results 01/01/19 01/01/19 01/01/19 Range/Units 11:37 13:55 15:44 WBC (4.5-11.0) K/mm3 RDW (13.2-15.2) % Plt Count (140-440) K/mm3 Lymph % (Auto) (13.4-35.0) % [place] % (Auto) (0.0-7.3) % Lymph # (1.2-5.4) K/mm3 Seg Neutrophils % (40.0-70.0) % POC ABG pH 7.242 L (7.35-7.45) POC ABG pCO2 55.3 H (35-45) POC ABG pO2 (80-105) Chloride (98-107) mmol/L Glucose (75-100) mg/dL POC Glucose 133 H 139 H (70-105) Calcium (8.4-10.2) mg/dL Iron (49-181) ug/dL TIBC (250-450) mcg/dL 01/01/19 01/01/19 01/02/19 Range/Units 16:51 21:35 03:13 WBC (4.5-11.0) K/mm3 RDW (13.2-15.2) % Plt Count (140-440) K/mm3 Lymph % (Auto) (13.4-35.0) % [place] % (Auto) (0.0-7.3) % Lymph # (1.2-5.4) K/mm3 Seg Neutrophils % (40.0-70.0) % POC ABG pH 7.298 L (7.35-7.45) POC ABG pCO2 50.6 H (35-45) POC ABG pO2 (80-105) Chloride (98-107) mmol/L Glucose (75-100) mg/dL POC Glucose 106 H 124 H (70-105) Calcium (8.4-10.2) mg/dL Iron (49-181) ug/dL TIBC (250-450) mcg/dL 01/02/19 01/02/19 01/02/19 Range/Units 04:40 05:09 05:09 WBC 3.9 L (4.5-11.0) K/mm3 RDW 16.1 H (13.2-15.2) % Plt Count 94 L (140-440) K/mm3 Lymph % (Auto) 7.5 L (13.4-35.0) % [place] % (Auto) 14.2 H (0.0-7.3) % Lymph # 0.3 L (1.2-5.4) K/mm3 Seg Neutrophils % 76.5 H (40.0-70.0) % POC ABG pH 7.206 L (7.35-7.45) POC ABG pCO2 65.8 H (35-45) POC ABG pO2 62 L (80-105) Chloride 107.4 H (98-107) mmol/L Glucose 133 H (75-100) mg/dL POC Glucose (70-105) Calcium 8.3 L (8.4-10.2) mg/dL Iron 34 L (49-181) ug/dL TIBC 231 L (250-450) mcg/dL 01/02/19 Range/Units 05:32 WBC (4.5-11.0) K/mm3 RDW (13.2-15.2) % Plt Count (140-440) K/mm3 Lymph % (Auto) (13.4-35.0) % [place] % (Auto) (0.0-7.3) % Lymph # (1.2-5.4) K/mm3 Seg Neutrophils % (40.0-70.0) % POC ABG pH (7.35-7.45) POC ABG pCO2 (35-45) POC ABG pO2 (80-105) Chloride (98-107) mmol/L Glucose (75-100) mg/dL POC Glucose 130 H (70-105) Calcium (8.4-10.2) mg/dL Iron (49-181) ug/dL TIBC (250-450) mcg/dL - Imaging and Cardiology Venous US: report reviewed, image reviewed Assessment and Plan 73-year-old male with multiple medical problems including respiratory arrest, right-sided chest tube placement, and bilateral lower extremity DVTs. Patient has bilateral lower extremity DVTs, left side worse than right. Patient has been having thrombocytopenia which is now starting to improve. Agree with HIT panel and conversion to fondaparinox until HIT panel returns. No need for IVC filter at this time. Management of thrombocytopenia per hematology/oncology. Right palpable pedal pulses noted and nonpalpable left pedal pulses. I'll obtain an arterial ultrasound. Patient is not easily arousable due to sedation overnight and is currently on BiPAP. However, no complaints of pain of the lower extremities per nursing reports. Suspect discrepant pulses are secondary to underlying atherosclerotic disease.
[2019-01-02] MEDS: LASIX IV SCH (09:59)
[2019-01-02] MEDS ORDERED: KEPPRA PO SCH (10:00)
--- NOTE | 2019-01-02 10:05 | Progress Note ---
Assessment and Plan Assessment and plan: Patient is a 73-year-old male, with mobid obesity, HTN, CAD, s/p IL, Seizure. He was admitted after spouse found him on the floor with agonal breathing 10 mins after he went to bed. EMS was called and he was transported here to the ED in respiratory distress and was intubated in the ED. CXR; right sided pleural effusion CT: no PE * Critical care, ID and cardiology consulted * Per family patient has been having 2 weeks increasing shortness of breath and also chronic bouts of hypotension * Large right sided pleural effusion noted on cxr requiring emergent chest tube placement * Concern if patient had seizure that led to being found on the floor so Neurology was consult * Appeared also septic on admission ?aspiration Acute Hypoxic Respiratory failure- s/p extubated 01/01. now on BIPAP Seizure Disorder DVT bilateral lower ext Right sided Pneumonia Large Right sided Pleural effusion- s/p chest tube, pending fluid analysis Shock syndrome questionable septic versus cardiogenic Hypokalemia Morbid Obesity Thrombocytopenia Non ST elevated IL type II Presumed ischemic cardiomyopathy status post CABG Acute metabolic encephalopathy Severe Protein calorie malnutrition Hyponatremia Hypocalcemia History of CVA 2 years ago Plan Extubated, on BIPAP On heparin drip, Continue current ICU care Continue chest tube management VAP and aspiration precautions Continue abx, Follow cultures, and fluid analysis from Chest tube insertion ID following Family advised of findings Continue AED DVT/GI prophy Discussed with at bedside The high probability of a clinically significant, sudden or life threatening deterioration of the [NEURO, PULMONARY] system(s) required my full and direct attention, intervention and personal management. The aggregate critical care time was [32] minutes. This time is in addition to time spent performing reported procedures but includes the following: [X] Data Review and interpretation [X] Patient assessment and monitoring of vital signs [X] Documentation [X] Medication orders and management History Interval history: Patient is a 73-year-old male, with mobid obesity, HTN, CAD, s/p IL, Seizure, admitted after spouse found him on the floor with agonal breathing 10 mins after he went to bed. EMS was called and transported to the hospital in full respiratory distress and was intubated in the ED. Patient extubated yesterday 01/01, Now on BIPAP No fever x 2 days Hospitalist Physical - Physical exam Narrative exam: Gen: Not in acute distress, morbidly obese, BIPAP mask on HEENT: Normocephalic, atraumatic Neck: supple, no JVD Heart: S1 and S2 reg, no murmurs, rubs or gallop Lungs: Clear, no crackles, right chest tube Abd: soft, non tender, non distended, normal BS Ext: No edema, no clubbing, no cyanosis, Neuro: Extubated, lethargic - Constitutional Vitals: Temp Pulse Resp BP Pulse Ox 98.0 F 94 H 30 H 144/68 98 01/02/19 08:00 01/02/19 08:32 01/02/19 08:32 01/02/19 08:17 01/02/19 08:17 General appearance: Present: no acute distress, other (on BiPAP) Results - Labs CBC & Chem 7: 01/02/19 05:09 01/02/19 05:09 Labs: Laboratory Last Values WBC 3.9 K/mm3 (4.5-11.0) L 01/02/19 05:09 RBC 4.09 M/mm3 (3.65-5.03) 01/02/19 05:09 Hgb 12.1 gm/dl (11.8-15.2) 01/02/19 05:09 Hct 36.7 % (35.5-45.6) 01/02/19 05:09 MCV 90 fl (84-94) 01/02/19 05:09 MCH 30 pg (28-32) 01/02/19 05:09 MCHC 33 % (32-34) 01/02/19 05:09 RDW 16.1 % (13.2-15.2) H 01/02/19 05:09 Plt Count 94 K/mm3 (140-440) L 01/02/19 05:09 Lymph % (Auto) 7.5 % (13.4-35.0) L 01/02/19 05:09 [place] % (Auto) 14.2 % (0.0-7.3) H 01/02/19 05:09 Eos % (Auto) 1.3 % (0.0-4.3) 01/02/19 05:09 Baso % (Auto) 0.5 % (0.0-1.8) 01/02/19 05:09 Lymph # 0.3 K/mm3 (1.2-5.4) L 01/02/19 05:09 Towns # 0.6 K/mm3 (0.0-0.8) 01/02/19 05:09 Eos # 0.1 K/mm3 (0.0-0.4) 01/02/19 05:09 Baso # 0.0 K/mm3 (0.0-0.1) 01/02/19 05:09 Seg Neutrophils % 76.5 % (40.0-70.0) H 01/02/19 05:09 Seg Neutrophils # 3.0 K/mm3 (1.8-7.7) 01/02/19 05:09 PT 16.5 Sec. (12.2-14.9) H 12/30/18 18:17 INR 1.25 (0.87-1.13) H 12/30/18 18:17 APTT 33.1 Sec. (24.2-36.6) 12/30/18 18:17 D-Dimer 815.50 ng/mlDDU (0-234) H 12/28/18 23:58 Heparin Anti-Xa Level 0.70 U.I./ml (0.3-0.7) 01/02/19 05:09 POC ABG pH 7.206 (7.35-7.45) L 01/02/19 04:40 POC ABG pCO2 65.8 (35-45) H 01/02/19 04:40 POC ABG pO2 62 (80-105) L 01/02/19 04:40 POC ABG HCO3 26.1 (22-26 mml/L) 01/02/19 04:40 POC ABG Total CO2 28 (23-27mmol/L) 01/02/19 04:40 POC ABG O2 Sat 85 01/02/19 04:40 POC ABG Base Excess -2 ((-2) - (+3)mmol/L) 01/02/19 04:40 FiO2 30 % 01/02/19 04:40 Sodium 144 mmol/L (137-145) 01/02/19 05:09 Potassium 4.1 mmol/L (3.6-5.0) 01/02/19 05:09 Chloride 107.4 mmol/L (98-107) H 01/02/19 05:09 Carbon Dioxide 26 mmol/L (22-30) 01/02/19 05:09 Anion Gap 15 mmol/L 01/02/19 05:09 BUN 15 mg/dL (9-20) 01/02/19 05:09 Creatinine 1.0 mg/dL (0.8-1.5) 01/02/19 05:09 Estimated GFR > 60 ml/min 01/02/19 05:09 BUN/Creatinine Ratio 15 % 01/02/19 05:09 Glucose 133 mg/dL (75-100) H 01/02/19 05:09 POC Glucose 130 (70-105) H 01/02/19 05:32 Lactic Acid 1.50 mmol/L (0.7-2.0) 12/30/18 11:42 Calcium 8.3 mg/dL (8.4-10.2) L 01/02/19 05:09 Magnesium 2.10 mg/dL (1.7-2.3) 12/29/18 01:51 Iron 34 ug/dL (49-181) L 01/02/19 05:09 TIBC 231 mcg/dL (250-450) L 01/02/19 05:09 Total Bilirubin 0.60 mg/dL (0.1-1.2) 01/01/19 04:42 AST 23 units/L (5-40) 01/01/19 04:42 ALT 10 units/L (7-56) 01/01/19 04:42 Alkaline Phosphatase 53 units/L (35-129) 01/01/19 04:42 Lactate Dehydrogenase 405 units/L (91-180) H 12/29/18 15:02 Total Creatine Kinase 837 units/L (55-170) H 12/29/18 12:51 CK-MB (CK-2) 10.5 ng/mL (0.0-4.0) H 12/29/18 12:51 CK-MB (CK-2) Rel Index 1.2 (0-4) 12/29/18 12:51 Troponin T 0.060 ng/mL (0.00-0.029) H D 12/30/18 13:53 C-Reactive Protein 2.80 mg/dL (0.00-1.30) H 12/29/18 16:46 NT-Pro-B Natriuret Pep 1209 pg/mL (0-900) H 12/28/18 23:58 Total Protein 4.9 g/dL (6.3-8.2) L 01/01/19 04:42 Albumin 2.3 g/dL (3.9-5) L 01/01/19 04:42 Albumin/Globulin Ratio 0.9 % 01/01/19 04:42 Triglycerides 113 mg/dL (2-149) 12/29/18 08:34 Cholesterol 120 mg/dL (50-199) 12/29/18 08:34 LDL Cholesterol Direct 82 mg/dL (50-130) 12/29/18 08:34 HDL Cholesterol 34 mg/dL (40-59) L 12/29/18 08:34 Cholesterol/HDL Ratio 3.52 % 12/29/18 08:34 Urine Color Yolande (Yellow) 12/29/18 03:00 Urine Turbidity Cloudy (Clear) 12/29/18 03:00 Urine pH 5.0 (5.0-7.0) 12/29/18 03:00 Ur Specific [place] 1.033 (1.003-1.030) H 12/29/18 03:00 Urine Protein >500 mg/dL (Negative) 12/29/18 03:00 Urine Glucose (UA) 150 mg/dL (Negative) 12/29/18 03:00 Urine Ketones Neg mg/dL (Negative) 12/29/18 03:00 Urine Blood Mod (Negative) 12/29/18 03:00 Urine Nitrite Neg (Negative) 12/29/18 03:00 Urine Bilirubin Neg (Negative) 12/29/18 03:00 Urine Urobilinogen < 2.0 mg/dL (<2.0) 12/29/18 03:00 Ur Leukocyte Esterase Neg (Negative) 12/29/18 03:00 Urine WBC (Auto) 31.0 /HPF (0.0-6.0) H 12/29/18 03:00 Urine RBC (Auto) 27.0 /HPF (0.0-6.0) 12/29/18 03:00 U Epithel Cells (Auto) 4.0 /HPF (0-13.0) 12/29/18 03:00 Urine Bacteria (Auto) 4+ /HPF (Negative) 12/29/18 03:00 Urine Mucus 3+ /HPF 12/29/18 03:00 Urine Opiates Screen Presumptive negative 12/29/18 03:00 Urine Methadone Screen Presumptive negative 12/29/18 03:00 Ur Barbiturates Screen Presumptive negative 12/29/18 03:00 Ur Phencyclidine Scrn Presumptive negative 12/29/18 03:00 Ur Amphetamines Screen Presumptive negative 12/29/18 03:00 U Benzodiazepines Scrn Presumptive negative 12/29/18 03:00 Urine Cocaine Screen Presumptive negative 12/29/18 03:00 U Marijuana (THC) Screen Presumptive negative 12/29/18 03:00 Drugs of Abuse Note Disclamer 12/29/18 03:00 Urine Legionella Ag Not detected (Not Detected) 12/31/18 05:30 Blood Type O POSITIVE 12/29/18 01:53 Antibody Screen Negative 12/29/18 01:53 Crossmatch See Detail 12/29/18 01:53 Active Medications - Current Medications Current Medications: Generic Name Dose Route Start Last Admin Trade Name Freq PRN Reason Stop Dose Admin Acetaminophen 650 mg 12/29/18 04:49 12/30/18 08:33 Tylenol NM 650 mg Q4H PRN Administration Fever >101 Albuterol/Ipratropium 1 ampul 01/01/19 14:00 01/02/19 08:20 Duoneb *Not For Prn Use* IH 1 ampul Q6HRT [facility] Administration Lipase/Protease/Amylase 1 each 12/31/18 15:06 Pancreaze 10,500 Unit FEEDTUBE PRN PRN For Clogged Feeding Tube Dextrose 50 ml 12/29/18 04:47 D50w (25gm) Syringe IV PRN PRN Hypoglycemia Famotidine 20 mg 01/02/19 10:00 Pepcid IV BID [facility] Fentanyl 25 mcg 12/30/18 14:26 01/02/19 00:23 Sublimaze IV 25 mcg Q2H PRN Administration Pain , Severe (7-10) Fondaparinux 7.5 mg 01/01/19 22:00 01/01/19 22:23 Arixtra SUB-Q 7.5 mg Q24H [facility] Administration Fondaparinux 2.5 mg 01/01/19 22:00 01/01/19 22:23 Arixtra SUB-Q 2.5 mg Q24H [facility] Administration Furosemide 20 mg 01/01/19 14:00 01/02/19 09:59 Lasix IV 20 mg QDAY [facility] Administration Glycopyrrolate 1 mg 12/31/18 14:00 01/01/19 21:55 Robinul PO 1 mg TID [facility] Administration Hydralazine HCl 10 mg 01/01/19 13:23 Apresoline IV Q4HR PRN SBP >/=170 Norepinephrine 4 mg in 250 mls @ 37.5 mls/hr 12/29/18 20:00 01/01/19 07:00 Levophed Drip 4 Mg/Ns 250 Ml IV Infused TITR [facility] Titration Protocol 10 MCG/MIN Metronidazole 500 mg in 100 mls @ 100 mls/hr 12/30/18 14:00 01/01/19 21:57 Flagyl 500 Mg/100 Ml IV 01/08/19 13:59 100 mls/hr Q8HR [facility] Administration Protocol Cefepime HCl 2 gm in 100 mls @ 200 mls/hr 12/31/18 14:00 01/01/19 21:57 Maxipime/Ns 2 Gm/100 Ml IV 01/08/19 13:59 200 mls/hr Q8HR [facility] Administration Protocol Levetiracetam 500 mg in 100 mls @ 400 mls/hr 01/02/19 11:00 01/02/19 10:04 Keppra 500 Mg/Ns 0.82% 100 Ml IV 400 mls/hr Q12HR [facility] Administration Insulin Human Regular 0 units 12/29/18 05:00 01/01/19 21:56 Humulin R SUB-Q Not Given Q4H [facility] Protocol Ondansetron HCl 4 mg 12/29/18 04:49 Zofran IV Q8H PRN Nausea And Vomiting Quetiapine Fumarate 100 mg 12/31/18 22:00 01/01/19 21:56 Seroquel PO 100 mg QHS [facility] Administration Scopolamine 1 each 12/31/18 13:00 12/31/18 13:42 Transderm-Scop TD 1 each Q3D [facility] Administration Simple Syrup 15 ml 12/31/18 15:06 Simple Syrup FEEDTUBE PRN PRN Hypoglycemia Simple Syrup 30 ml 12/31/18 15:06 Simple Syrup FEEDTUBE PRN PRN Hypoglycemia Sodium Bicarbonate 325 mg 12/31/18 15:06 Sodium Bicarbonate FEEDTUBE PRN PRN For Clogged Feeding Tube Nutrition/Malnutrition Assess - Dietary Evaluation Nutrition/Malnutrition Findings: Nutrition Notes Start: 12/31/18 14:59 Freq: Status: Active Protocol: Document 12/31/18 14:59 LIZ (Rec: 12/31/18 15:05 LIZ [email or web address]) Nutrition Notes Need for Assessment generated from: MD Order,vp of marketing Initial or Follow up Assessment Current Diagnosis Coronary Artery Disease, Diabetes,Hypertension, Respiratory Failure Other Pertinent Diagnosis (R) lung effusion Current Diet No diet ordered Labs/Tests Reviewed Pertinent Medications Levophed gtt, Heparin gtt Height 5 ft 9 in Weight 145 kg [place] Body Weight (kg) 72.72 BMI 47.2 Weight Status Morbidly Obese Subjective/Other Information RD consulted for TF; pt also screened for chewing difficulty. Pt on vent support. Burn Absent Trauma Absent #1 Nutrition Diagnosis Inadequate oral intake Etiology mech ventilation As Evidenced by Signs and Symptoms pt NPO Is patient on ventilator? Yes Is Patient Ambulatory and/or Out of Bed No REE-([facility]-confined to bed) [phone] Additional Notes Pro needs 2.5g/kg IBW: 182g/ day Fluid needs 1ml/kcal Nutrition Intervention Nutrition Support: Vital High Protein at 75ml/hr with 50ml water flush q4h. Kcal 1,800 Protein (gm) 158 Carbohydrates (gm) 202 Fat (gm) 42 Fluid (mL) 1,505 Fiber (gm) 0 Goal #1 TF tolerance Goal #2 TF to meet 65-70% energy and 80-100% pro needs Anticipated Discharge Needs: Unable to identify at this time Follow-Up By: 01/02/19 Additional Comments F/U: new TF, vent status
[2019-01-02] MEDS: PEPCID IV SCH ×2 (10:07→21:55)
[2019-01-02] MEDS: ROBINUL PO SCH (10:11)
[2019-01-02] MEDS ORDERED: KEPPRA 500 MG/NS 0.82% 100 ML 500 MG/100 ML BAG IV SCH (11:00)
--- NOTE | 2019-01-02 11:03 | Progress Note ---
Assessment and Plan Acute respiratory failure Extubated to BiPAP Per pulmonary Suspected Sepsis with sepsis associated hypotension ID following CAD s/p CABG in 1999 Pleural effusion Chest tube in place Echo done 12/29/2018: EF 45-50% NSTEMI Type II Echo done 12/29/2018: EF 45-50% History of CVA History of left-sided carotid endarterectomy History of seizure Per family with previous history of seizures. Neurology following. Acute BLE DVT Heparin gtt d/c'd in setting of anemia and thrombocytopenia Anemia / thrombocytopenia Hematology following. Monitor CBC. Cont present cardiac management. Can consider ischemic evaluation once medically stabilized. The patient has been seen in conjunction with Dr. Le who agrees with the assessment and plan of care. Subjective Date of service: 01/02/19 Principal diagnosis: Acute hypoxemic hypercapnic respiratory failure on MVS; Bilateral pleural e Interval history: pt resting in bed, extubated to BiPAP, lethargic. no family at bedside. Objective Last Vital Signs Temp 98.0 F 01/02/19 08:00 Pulse 90 01/02/19 10:50 Resp 20 01/02/19 10:50 BP 154/70 01/02/19 10:50 Pulse Ox 98 01/02/19 10:50 - Physical Examination General: Other (BiPAP) HEENT: Positive: PERRL Neck: Positive: neck supple, trachea midline Cardiac: Positive: Reg Rate and Rhythm, S1/S2 Lungs: Positive: Decreased Breath Sounds Neuro: Positive: Grossly Intact Abdomen: Positive: Unremarkable Skin: Negative: Rash Extremities: Absent: edema - Labs and Meds CBC 01/02/19 Range/Units 05:09 WBC 3.9 L (4.5-11.0) K/mm3 RBC 4.09 (3.65-5.03) M/mm3 Hgb 12.1 (11.8-15.2) gm/dl Hct 36.7 (35.5-45.6) % Plt Count 94 L (140-440) K/mm3 Lymph # 0.3 L (1.2-5.4) K/mm3 [place] # 0.6 (0.0-0.8) K/mm3 Eos # 0.1 (0.0-0.4) K/mm3 Baso # 0.0 (0.0-0.1) K/mm3 Comprehensive Metabolic Panel 01/02/19 Range/Units 05:09 Sodium 144 (137-145) mmol/L Potassium 4.1 (3.6-5.0) mmol/L Chloride 107.4 H (98-107) mmol/L Carbon Dioxide 26 (22-30) mmol/L BUN 15 (9-20) mg/dL Creatinine 1.0 (0.8-1.5) mg/dL Glucose 133 H (75-100) mg/dL Calcium 8.3 L (8.4-10.2) mg/dL - Imaging and Cardiology EKG: report reviewed, image reviewed Echo: report reviewed (12/29/2018: EF 45-50%) AV and intraventricular conduction: 1 AV block, intraventricular conducti Repolarization changes or abnormalities: nonspecific abnormality, ST segment, and/or T wave - Allied health notes Allied health notes reviewed: nursing
--- NOTE | 2019-01-02 12:54 | Progress Note ---
Assessment and Plan Acute hypoxemic hypercapnic respiratory failure, on mechanical ventilation support. Bilateral pleural effusions, complex looking on the right. Right lung complete atelectasis. Right pneumonia, appears to be community-acquired. Severe sepsis with shock, on Levophed. Anemia that is normocytic present at presentation; however, I think that may be an abnormal lab value. Hypokalemia at presentation that may also be an abnormal lab value. Hypocalcemia at presentation that may also be abnormal lab value. Morbid obesity. History of diabetes. History of hypertension. Restless legs syndrome. Elevated D-dimer (CXR revealed significant re-expansion of right lung post chest tube placement) - Asked RN to call lab about Pleural fluid Studies - May need repeat CT chest re: ? RLL pleural lesion - discontinued seroquel today - discontinue Robinul and scopolamine re: lethargy - continue Arixtra for VTE - continue RTC BIPAP for now (04/05 and rate of 25) - IV hydralazine 10mg q4h prn SBP >/= 170 mmHg - continue scheduled lasix 20 mg IV daily (good diuresis overnight) - cardiology evaluation ongoing (input appreciated) - continue daily SAT's & SBT assessment - continue chest tube to vacuum (2.0 liter in vacutainer) - further CT management per surgeon (input appreciated) - continue bronchodilators with pulmonary hygiene per RT - continue to wean supplemental oxygen to keep O2 sats 88-90% acutely - continue Lung protective strategies - Daily ABGs/CXR till more stable - complete empiric antibiotics for CAP / Sepsis per ID recs - ID input appreciated - Follow tracheal aspirate, urine & blood cultures and adjust antibiotic therapy based on LEXI/ID (NGTD) - VAP bundle addressed - continue Stress ulcer prophylaxis - ST evaluation and advance diet - resume chronic home medications per attending - continue accuchecks with glycemic control for target glucose of 140-180 mg/dL - Maintenance of sleep-wake cycle - Mobility protocol as tolerated by hemodynamics for pressure ulcer prophylaxis - Influenza and pneumonia vaccination per protocol .... re-evaluate in am & prn PROGNOSIS GUARDED CONDITION: CRITICAL CODE STATUS: FULL CODE The high probability of a clinically significant, sudden or life-threatening deterioration of the [respiratory, neurology,] system(s) required my full and direct attention, intervention and personal management. The aggregate critical care time was [32] minutes without overlap. Time includes spent on; [x] Data Review and interpretation [x] Patient assessment and monitoring of vital signs [x] Documentation [x] Medication orders and management Subjective Date of service: 01/02/19 Principal diagnosis: Acute hypoxemic hypercapnic Resp failure on MVS; Zack. pleural effusions Interval history: Patient is seen today for: Acute hypoxemic hypercapnic respiratory failure on MVS; Bilateral pleural effusions, complex looking on the right; Right lung complete atelectasis; Right pneumonia (appears to be community-acquired); Severe sepsis with shock, on Levophed Seen and examined at bedside; 24hour events reviewed; nursing and respiratory care staff consulted; no adverse overnight events reported to me; extubated direct to BIPAP yesterday; decompensated overnight with hypercapnia and lethargy; hemodynamically stable otherwise but has remained on continuous BIPAP; no N/V/F/C; FiO2 increased to 60%; placed on Arixtra for VTE re: thrombocytopenia Objective Vital Signs - 12hr 01/02/19 01/02/19 01/02/19 00:50 01:00 01:10 Temperature Pulse Rate 112 H 112 H 114 H Pulse Rate [ Anterior Bilateral Throughout] Pulse Rate [ Bilateral] Pulse Rate [ From Monitor] Respiratory 22 22 26 H Rate Respiratory Rate [Anterior Bilateral Throughout] Respiratory Rate [Bilateral ] Blood Pressure 131/71 123/81 123/81 O2 Sat by Pulse 89 88 85 Oximetry 01/02/19 01/02/19 01/02/19 01:20 01:30 01:40 Temperature Pulse Rate 116 H 114 H 114 H Pulse Rate [ Anterior Bilateral Throughout] Pulse Rate [ Bilateral] Pulse Rate [ From Monitor] Respiratory 21 21 23 Rate Respiratory Rate [Anterior Bilateral Throughout] Respiratory Rate [Bilateral ] Blood Pressure 123/81 123/81 123/81 O2 Sat by Pulse 89 92 93 Oximetry 01/02/19 01/02/19 01/02/19 01:50 02:00 02:10 Temperature Pulse Rate 114 H 115 H 115 H Pulse Rate [ Anterior Bilateral Throughout] Pulse Rate [ Bilateral] Pulse Rate [ From Monitor] Respiratory 23 21 18 Rate Respiratory Rate [Anterior Bilateral Throughout] Respiratory Rate [Bilateral ] Blood Pressure 123/81 123/81 112/88 O2 Sat by Pulse 91 91 91 Oximetry 01/02/19 01/02/19 01/02/19 02:20 02:30 02:40 Temperature Pulse Rate 119 H 118 H 117 H Pulse Rate [ Anterior Bilateral Throughout] Pulse Rate [ Bilateral] Pulse Rate [ From Monitor] Respiratory 24 20 23 Rate Respiratory Rate [Anterior Bilateral Throughout] Respiratory Rate [Bilateral ] Blood Pressure 112/88 123/81 123/81 O2 Sat by Pulse 90 91 90 Oximetry 01/02/19 01/02/19 01/02/19 02:50 03:00 03:10 Temperature Pulse Rate 117 H 115 H 117 H Pulse Rate [ Anterior Bilateral Throughout] Pulse Rate [ Bilateral] Pulse Rate [ From Monitor] Respiratory 28 H 15 24 Rate Respiratory Rate [Anterior Bilateral Throughout] Respiratory Rate [Bilateral ] Blood Pressure 123/81 123/81 135/81 O2 Sat by Pulse 86 88 85 Oximetry 01/02/19 01/02/19 01/02/19 03:20 03:30 03:40 Temperature Pulse Rate 117 H 118 H 117 H Pulse Rate [ Anterior Bilateral Throughout] Pulse Rate [ Bilateral] Pulse Rate [ From Monitor] Respiratory 22 23 22 Rate Respiratory Rate [Anterior Bilateral Throughout] Respiratory Rate [Bilateral ] Blood Pressure 135/81 135/81 135/81 O2 Sat by Pulse 89 84 83 L Oximetry 01/02/19 01/02/19 01/02/19 03:50 04:00 04:04 Temperature 99.9 F H Pulse Rate 116 H 120 H Pulse Rate [ 97 H Anterior Bilateral Throughout] Pulse Rate [ 96 H Bilateral] Pulse Rate [ From Monitor] Respiratory 23 22 Rate Respiratory 20 Rate [Anterior Bilateral Throughout] Respiratory 20 Rate [Bilateral ] Blood Pressure 135/81 126/82 O2 Sat by Pulse 82 L 86 Oximetry 01/02/19 01/02/19 01/02/19 04:10 04:20 04:30 Temperature Pulse Rate 122 H 118 H 118 H Pulse Rate [ Anterior Bilateral Throughout] Pulse Rate [ Bilateral] Pulse Rate [ From Monitor] Respiratory 24 22 24 Rate Respiratory Rate [Anterior Bilateral Throughout] Respiratory Rate [Bilateral ] Blood Pressure 126/82 126/82 126/82 O2 Sat by Pulse 89 89 87 Oximetry 01/02/19 01/02/19 01/02/19 04:40 04:50 04:55 Temperature Pulse Rate 117 H 116 H Pulse Rate [ Anterior Bilateral Throughout] Pulse Rate [ Bilateral] Pulse Rate [ From Monitor] Respiratory 18 19 20 Rate Respiratory Rate [Anterior Bilateral Throughout] Respiratory Rate [Bilateral ] Blood Pressure 126/82 126/82 O2 Sat by Pulse 90 97 Oximetry 01/02/19 01/02/19 01/02/19 05:00 05:10 05:20 Temperature Pulse Rate 118 H 117 H 116 H Pulse Rate [ Anterior Bilateral Throughout] Pulse Rate [ Bilateral] Pulse Rate [ From Monitor] Respiratory 23 22 20 Rate Respiratory Rate [Anterior Bilateral Throughout] Respiratory Rate [Bilateral ] Blood Pressure 126/82 126/82 126/82 O2 Sat by Pulse 98 98 98 Oximetry 01/02/19 01/02/19 01/02/19 05:30 05:40 05:50 Temperature Pulse Rate 115 H 113 H 112 H Pulse Rate [ Anterior Bilateral Throughout] Pulse Rate [ Bilateral] Pulse Rate [ From Monitor] Respiratory 22 22 21 Rate Respiratory Rate [Anterior Bilateral Throughout] Respiratory Rate [Bilateral ] Blood Pressure 126/82 126/82 126/82 O2 Sat by Pulse 98 98 99 Oximetry 01/02/19 01/02/19 01/02/19 06:00 06:10 06:20 Temperature Pulse Rate 110 H 108 H 110 H Pulse Rate [ Anterior Bilateral Throughout] Pulse Rate [ Bilateral] Pulse Rate [ From Monitor] Respiratory 20 16 22 Rate Respiratory Rate [Anterior Bilateral Throughout] Respiratory Rate [Bilateral ] Blood Pressure 159/84 159/84 159/84 O2 Sat by Pulse 98 93 98 Oximetry 01/02/19 01/02/19 01/02/19 06:30 06:40 06:50 Temperature Pulse Rate 109 H 110 H 108 H Pulse Rate [ Anterior Bilateral Throughout] Pulse Rate [ Bilateral] Pulse Rate [ From Monitor] Respiratory 20 18 18 Rate Respiratory Rate [Anterior Bilateral Throughout] Respiratory Rate [Bilateral ] Blood Pressure 159/84 159/84 159/84 O2 Sat by Pulse 98 98 99 Oximetry 01/02/19 01/02/19 01/02/19 07:00 07:10 07:20 Temperature Pulse Rate 109 H 102 H 99 H Pulse Rate [ Anterior Bilateral Throughout] Pulse Rate [ Bilateral] Pulse Rate [ From Monitor] Respiratory 20 20 13 Rate Respiratory Rate [Anterior Bilateral Throughout] Respiratory Rate [Bilateral ] Blood Pressure 159/84 157/86 157/86 O2 Sat by Pulse 96 99 99 Oximetry 01/02/19 01/02/19 01/02/19 07:30 07:40 07:50 Temperature Pulse Rate 98 H 98 H 97 H Pulse Rate [ Anterior Bilateral Throughout] Pulse Rate [ Bilateral] Pulse Rate [ From Monitor] Respiratory 23 21 17 Rate Respiratory Rate [Anterior Bilateral Throughout] Respiratory Rate [Bilateral ] Blood Pressure 157/86 157/86 157/86 O2 Sat by Pulse 100 100 99 Oximetry 01/02/19 01/02/19 01/02/19 08:00 08:10 08:17 Temperature 98.0 F Pulse Rate 97 H 95 H 96 H Pulse Rate [ Anterior Bilateral Throughout] Pulse Rate [ Bilateral] Pulse Rate [ 97 H From Monitor] Respiratory 18 18 31 H Rate Respiratory Rate [Anterior Bilateral Throughout] Respiratory Rate [Bilateral ] Blood Pressure 144/68 144/68 144/68 O2 Sat by Pulse 99 98 98 Oximetry 01/02/19 01/02/19 01/02/19 08:20 08:30 08:31 Temperature Pulse Rate 97 H 95 H 90 Pulse Rate [ Anterior Bilateral Throughout] Pulse Rate [ 96 H Bilateral] Pulse Rate [ From Monitor] Respiratory 18 16 Rate Respiratory Rate [Anterior Bilateral Throughout] Respiratory 30 H Rate [Bilateral ] Blood Pressure 144/68 144/68 O2 Sat by Pulse 98 98 Oximetry 01/02/19 01/02/19 01/02/19 08:32 08:40 08:50 Temperature Pulse Rate 95 H 95 H Pulse Rate [ 94 H Anterior Bilateral Throughout] Pulse Rate [ 94 H Bilateral] Pulse Rate [ From Monitor] Respiratory 16 15 Rate Respiratory 30 H Rate [Anterior Bilateral Throughout] Respiratory 30 H Rate [Bilateral ] Blood Pressure 144/68 144/68 O2 Sat by Pulse 99 100 Oximetry 01/02/19 01/02/19 01/02/19 09:00 09:10 09:20 Temperature Pulse Rate 97 H 95 H 94 H Pulse Rate [ Anterior Bilateral Throughout] Pulse Rate [ Bilateral] Pulse Rate [ From Monitor] Respiratory 17 18 19 Rate Respiratory Rate [Anterior Bilateral Throughout] Respiratory Rate [Bilateral ] Blood Pressure 151/79 151/79 151/79 O2 Sat by Pulse 99 98 99 Oximetry 01/02/19 01/02/19 01/02/19 09:30 09:40 09:50 Temperature Pulse Rate 91 H 90 91 H Pulse Rate [ Anterior Bilateral Throughout] Pulse Rate [ Bilateral] Pulse Rate [ From Monitor] Respiratory 19 18 18 Rate Respiratory Rate [Anterior Bilateral Throughout] Respiratory Rate [Bilateral ] Blood Pressure 151/79 151/79 151/79 O2 Sat by Pulse 98 99 98 Oximetry 01/02/19 01/02/19 01/02/19 10:00 10:10 10:20 Temperature Pulse Rate 91 H 91 H 92 H Pulse Rate [ Anterior Bilateral Throughout] Pulse Rate [ Bilateral] Pulse Rate [ From Monitor] Respiratory 17 17 18 Rate Respiratory Rate [Anterior Bilateral Throughout] Respiratory Rate [Bilateral ] Blood Pressure 154/70 154/70 154/70 O2 Sat by Pulse 99 99 98 Oximetry 01/02/19 01/02/19 01/02/19 10:30 10:40 10:50 Temperature Pulse Rate 93 H 92 H 90 Pulse Rate [ Anterior Bilateral Throughout] Pulse Rate [ Bilateral] Pulse Rate [ From Monitor] Respiratory 18 18 20 Rate Respiratory Rate [Anterior Bilateral Throughout] Respiratory Rate [Bilateral ] Blood Pressure 154/70 154/70 154/70 O2 Sat by Pulse 99 99 98 Oximetry 01/02/19 01/02/19 01/02/19 11:00 11:10 11:18 Temperature Pulse Rate 88 88 88 Pulse Rate [ Anterior Bilateral Throughout] Pulse Rate [ Bilateral] Pulse Rate [ From Monitor] Respiratory 21 17 31 H Rate Respiratory Rate [Anterior Bilateral Throughout] Respiratory Rate [Bilateral ] Blood Pressure 145/79 145/79 145/79 O2 Sat by Pulse 99 100 100 Oximetry 01/02/19 01/02/19 01/02/19 11:20 11:30 11:40 Temperature Pulse Rate 83 85 82 Pulse Rate [ Anterior Bilateral Throughout] Pulse Rate [ Bilateral] Pulse Rate [ From Monitor] Respiratory 16 18 19 Rate Respiratory Rate [Anterior Bilateral Throughout] Respiratory Rate [Bilateral ] Blood Pressure 145/79 145/79 145/79 O2 Sat by Pulse 100 97 97 Oximetry 01/02/19 01/02/19 01/02/19 11:50 12:00 12:10 Temperature 97.7 F Pulse Rate 79 79 78 Pulse Rate [ Anterior Bilateral Throughout] Pulse Rate [ Bilateral] Pulse Rate [ 79 From Monitor] Respiratory 18 19 20 Rate Respiratory Rate [Anterior Bilateral Throughout] Respiratory Rate [Bilateral ] Blood Pressure 145/79 145/79 129/67 O2 Sat by Pulse 97 97 96 Oximetry Constitutional: alert, appears uncomfortable, other (elderly looking morbidly obese CM normocephalic and with increased work of breathing at rest) Eyes: non-icteric ENT: oropharynx moist, oropharyngeal exudate pre, other (extubated; FFM with BIPAP) Neck: supple, no lymphadenopathy, no JVD, other (large neck circumference) Effort: mildly labored Ascultation: Bilateral: diminished breath sounds, rhonchi (bases), other (Right chest tube) Percussion: Bilateral: not dull Cardiovascular: regular rate and rhythm, other (No R/M) Gastrointestinal: normoactive bowel sounds, soft, non-tender, non-distended Integumentary: normal Extremities: no cyanosis, pink and warm, pulses normal, no ischemia or petechiae, edema (1+) Neurologic: normal mental status, non-focal exam (grossly), pupils equal and round, CN II-XII normal, motor strength normal and Psychiatric: mood appropriate, affect normal CBC and BMP: 01/02/19 05:09 01/02/19 05:09 ABG, PT/INR, D-dimer: ABG POC ABG pH 7.318 (7.35-7.45) L 01/02/19 11:21 POC ABG pCO2 56.7 (35-45) H 01/02/19 11:21 POC ABG pO2 215 (80-105) H 01/02/19 11:21 POC ABG HCO3 29.1 (22-26 mml/L) 01/02/19 11:21 POC ABG Total CO2 31 (23-27mmol/L) 01/02/19 11:21 POC ABG O2 Sat 100 01/02/19 11:21 PT/INR, D-dimer PT 16.5 Sec. (12.2-14.9) H 12/30/18 18:17 INR 1.25 (0.87-1.13) H 12/30/18 18:17 D-Dimer 815.50 ng/mlDDU (0-234) H 12/28/18 23:58 Abnormal lab findings: Abnormal Labs 12/28/18 12/28/18 12/28/18 23:58 23:58 23:58 WBC RBC 2.24 L Hgb 6.7 L Hct 20.9 L RDW 16.4 H Plt Count 99 L Lymph % (Auto) 10.7 L [place] % (Auto) 7.9 H Lymph # 0.6 L [place] # Seg Neutrophils % 80.7 H PT INR D-Dimer 815.50 H Heparin Anti-Xa Level POC ABG pH POC ABG pCO2 POC ABG pO2 Sodium 148 H Potassium 2.3 L* Chloride 128.4 H Carbon Dioxide 12 L BUN Creatinine 0.4 L Glucose POC Glucose Lactic Acid Calcium 5.0 L* Iron TIBC Total Bilirubin AST ALT < 5 L Lactate Dehydrogenase Total Creatine Kinase 44 L CK-MB (CK-2) CK-MB (CK-2) Rel Index 4.3 H Troponin T C-Reactive Protein NT-Pro-B Natriuret Pep Total Protein 2.3 L Albumin 1.1 L HDL Cholesterol Ur Specific [place] Urine WBC (Auto) Crossmatch 12/28/18 12/29/18 12/29/18 23:58 00:27 01:53 WBC RBC Hgb Hct RDW Plt Count Lymph % (Auto) [place] % (Auto) Lymph # [place] # Seg Neutrophils % PT INR D-Dimer Heparin Anti-Xa Level POC ABG pH 7.169 L POC ABG pCO2 POC ABG pO2 Sodium Potassium Chloride Carbon Dioxide BUN Creatinine Glucose POC Glucose Lactic Acid Calcium Iron TIBC Total Bilirubin AST ALT Lactate Dehydrogenase Total Creatine Kinase CK-MB (CK-2) CK-MB (CK-2) Rel Index Troponin T C-Reactive Protein NT-Pro-B Natriuret Pep 1209 H Total Protein Albumin HDL Cholesterol Ur Specific [place] Urine WBC (Auto) Crossmatch See Detail 12/29/18 12/29/18 12/29/18 03:00 05:02 08:34 WBC RBC Hgb Hct RDW Plt Count Lymph % (Auto) [place] % (Auto) Lymph # [place] # Seg Neutrophils % PT INR D-Dimer Heparin Anti-Xa Level POC ABG pH 7.225 L POC ABG pCO2 57.9 H POC ABG pO2 Sodium Potassium Chloride Carbon Dioxide BUN Creatinine Glucose POC Glucose Lactic Acid Calcium Iron TIBC Total Bilirubin AST ALT Lactate Dehydrogenase Total Creatine Kinase 344 H CK-MB (CK-2) 7.9 H CK-MB (CK-2) Rel Index Troponin T 0.103 H* D C-Reactive Protein NT-Pro-B Natriuret Pep Total Protein Albumin HDL Cholesterol 34 L Ur Specific [place] 1.033 H Urine WBC (Auto) 31.0 H Crossmatch 12/29/18 12/29/18 12/29/18 08:34 08:53 12:51 WBC RBC Hgb Hct RDW Plt Count Lymph % (Auto) [place] % (Auto) Lymph # [place] # Seg Neutrophils % PT INR D-Dimer Heparin Anti-Xa Level POC ABG pH POC ABG pCO2 POC ABG pO2 Sodium Potassium 5.7 H D Chloride Carbon Dioxide BUN 21 H Creatinine Glucose 124 H POC Glucose 119 H Lactic Acid Calcium Iron TIBC Total Bilirubin AST ALT Lactate Dehydrogenase Total Creatine Kinase 837 H CK-MB (CK-2) 10.5 H CK-MB (CK-2) Rel Index Troponin T 0.084 H C-Reactive Protein NT-Pro-B Natriuret Pep Total Protein Albumin HDL Cholesterol Ur Specific [place] Urine WBC (Auto) Crossmatch 12/29/18 12/29/18 12/29/18 12:51 12:51 15:02 WBC RBC Hgb Hct RDW 16.0 H Plt Count Lymph % (Auto) [place] % (Auto) 13.3 H Lymph # [place] # 1.4 H Seg Neutrophils % PT INR D-Dimer Heparin Anti-Xa Level POC ABG pH POC ABG pCO2 POC ABG pO2 Sodium Potassium 5.4 H Chloride Carbon Dioxide 19 L 17 L BUN 21 H 21 H Creatinine Glucose 116 H 115 H POC Glucose Lactic Acid Calcium Iron TIBC Total Bilirubin 1.50 H AST 43 H ALT Lactate Dehydrogenase 405 H Total Creatine Kinase CK-MB (CK-2) CK-MB (CK-2) Rel Index Troponin T C-Reactive Protein NT-Pro-B Natriuret Pep Total Protein 6.2 L D Albumin 3.1 L HDL Cholesterol Ur Specific [place] Urine WBC (Auto) Crossmatch 12/29/18 12/29/18 12/29/18 15:03 16:46 16:46 WBC RBC Hgb Hct RDW Plt Count Lymph % (Auto) [place] % (Auto) Lymph # [place] # Seg Neutrophils % PT INR D-Dimer Heparin Anti-Xa Level POC ABG pH POC ABG pCO2 POC ABG pO2 Sodium Potassium Chloride Carbon Dioxide BUN Creatinine Glucose POC Glucose 121 H Lactic Acid 2.70 H* Calcium Iron TIBC Total Bilirubin AST ALT Lactate Dehydrogenase Total Creatine Kinase CK-MB (CK-2) CK-MB (CK-2) Rel Index Troponin T C-Reactive Protein 2.80 H NT-Pro-B Natriuret Pep Total Protein Albumin HDL Cholesterol Ur Specific [place] Urine WBC (Auto) Crossmatch 12/29/18 12/29/18 12/29/18 16:50 17:37 19:37 WBC RBC Hgb Hct RDW Plt Count Lymph % (Auto) [place] % (Auto) Lymph # [place] # Seg Neutrophils % PT INR D-Dimer Heparin Anti-Xa Level POC ABG pH POC ABG pCO2 POC ABG pO2 248 H Sodium Potassium Chloride Carbon Dioxide 21 L BUN 21 H Creatinine Glucose 123 H POC Glucose 113 H Lactic Acid Calcium Iron TIBC Total Bilirubin AST ALT Lactate Dehydrogenase Total Creatine Kinase CK-MB (CK-2) CK-MB (CK-2) Rel Index Troponin T C-Reactive Protein NT-Pro-B Natriuret Pep Total Protein Albumin HDL Cholesterol Ur Specific [place] Urine WBC (Auto) Crossmatch 12/29/18 12/29/18 12/30/18 20:10 21:36 04:43 WBC RBC Hgb Hct RDW Plt Count Lymph % (Auto) [place] % (Auto) Lymph # [place] # Seg Neutrophils % PT INR D-Dimer Heparin Anti-Xa Level POC ABG pH 7.327 L POC ABG pCO2 POC ABG pO2 79 L Sodium Potassium Chloride Carbon Dioxide BUN Creatinine Glucose POC Glucose Lactic Acid 2.70 H* 2.80 H* Calcium Iron TIBC Total Bilirubin AST ALT Lactate Dehydrogenase Total Creatine Kinase CK-MB (CK-2) CK-MB (CK-2) Rel Index Troponin T C-Reactive Protein NT-Pro-B Natriuret Pep Total Protein Albumin HDL Cholesterol Ur Specific [place] Urine WBC (Auto) Crossmatch 12/30/18 12/30/18 12/30/18 11:42 11:42 13:43 WBC RBC Hgb Hct RDW 16.4 H Plt Count 125 L Lymph % (Auto) [place] % (Auto) Lymph # [place] # Seg Neutrophils % PT INR D-Dimer Heparin Anti-Xa Level POC ABG pH 7.225 L POC ABG pCO2 54.7 H POC ABG pO2 Sodium Potassium Chloride 108.8 H Carbon Dioxide BUN Creatinine Glucose 105 H POC Glucose Lactic Acid Calcium 8.2 L Iron TIBC Total Bilirubin AST ALT Lactate Dehydrogenase Total Creatine Kinase CK-MB (CK-2) CK-MB (CK-2) Rel Index Troponin T C-Reactive Protein NT-Pro-B Natriuret Pep Total Protein Albumin HDL Cholesterol Ur Specific [place] Urine WBC (Auto) Crossmatch 12/30/18 12/30/18 12/30/18 13:53 18:17 18:17 WBC RBC Hgb Hct RDW Plt Count 114 L Lymph % (Auto) [place] % (Auto) Lymph # [place] # Seg Neutrophils % PT 16.5 H INR 1.25 H D-Dimer Heparin Anti-Xa Level POC ABG pH POC ABG pCO2 POC ABG pO2 Sodium Potassium Chloride Carbon Dioxide BUN Creatinine Glucose POC Glucose Lactic Acid Calcium Iron TIBC Total Bilirubin AST ALT Lactate Dehydrogenase Total Creatine Kinase CK-MB (CK-2) CK-MB (CK-2) Rel Index Troponin T 0.060 H D C-Reactive Protein NT-Pro-B Natriuret Pep Total Protein Albumin HDL Cholesterol Ur Specific [place] Urine WBC (Auto) Crossmatch 12/31/18 12/31/18 12/31/18 00:31 04:39 05:30 WBC RBC Hgb 10.9 L Hct 32.4 L RDW 16.1 H Plt Count 97 L Lymph % (Auto) [place] % (Auto) Lymph # [place] # Seg Neutrophils % PT INR D-Dimer Heparin Anti-Xa Level 0.12 L POC ABG pH 7.337 L POC ABG pCO2 POC ABG pO2 Sodium Potassium Chloride Carbon Dioxide BUN Creatinine Glucose POC Glucose Lactic Acid Calcium Iron TIBC Total Bilirubin AST ALT Lactate Dehydrogenase Total Creatine Kinase CK-MB (CK-2) CK-MB (CK-2) Rel Index Troponin T C-Reactive Protein NT-Pro-B Natriuret Pep Total Protein Albumin HDL Cholesterol Ur Specific [place] Urine WBC (Auto) Crossmatch 12/31/18 12/31/18 12/31/18 05:30 16:27 18:40 WBC RBC Hgb Hct RDW Plt Count Lymph % (Auto) [place] % (Auto) Lymph # [place] # Seg Neutrophils % PT INR D-Dimer Heparin Anti-Xa Level POC ABG pH 7.246 L POC ABG pCO2 52.6 H POC ABG pO2 Sodium Potassium Chloride 110.5 H Carbon Dioxide BUN Creatinine Glucose 107 H POC Glucose 109 H Lactic Acid Calcium 8.2 L Iron TIBC Total Bilirubin 1.30 H AST ALT Lactate Dehydrogenase Total Creatine Kinase CK-MB (CK-2) CK-MB (CK-2) Rel Index Troponin T C-Reactive Protein NT-Pro-B Natriuret Pep Total Protein 5.1 L Albumin 2.3 L HDL Cholesterol Ur Specific [place] Urine WBC (Auto) Crossmatch 12/31/18 01/01/19 01/01/19 21:37 03:05 04:25 WBC RBC Hgb Hct RDW Plt Count Lymph % (Auto) [place] % (Auto) Lymph # [place] # Seg Neutrophils % PT INR D-Dimer Heparin Anti-Xa Level POC ABG pH 7.278 L POC ABG pCO2 50.6 H POC ABG pO2 111 H Sodium Potassium Chloride Carbon Dioxide BUN Creatinine Glucose POC Glucose 108 H 147 H Lactic Acid Calcium Iron TIBC Total Bilirubin AST ALT Lactate Dehydrogenase Total Creatine Kinase CK-MB (CK-2) CK-MB (CK-2) Rel Index Troponin T C-Reactive Protein NT-Pro-B Natriuret Pep Total Protein Albumin HDL Cholesterol Ur Specific [place] Urine WBC (Auto) Crossmatch 01/01/19 01/01/19 01/01/19 04:42 04:42 06:32 WBC 3.9 L RBC 3.54 L Hgb 10.7 L Hct 31.6 L RDW 16.3 H Plt Count 83 L Lymph % (Auto) [place] % (Auto) Lymph # [place] # Seg Neutrophils % PT INR D-Dimer Heparin Anti-Xa Level POC ABG pH POC ABG pCO2 POC ABG pO2 Sodium Potassium Chloride 109.8 H Carbon Dioxide BUN Creatinine Glucose 134 H POC Glucose 143 H Lactic Acid Calcium 8.1 L Iron TIBC Total Bilirubin AST ALT Lactate Dehydrogenase Total Creatine Kinase CK-MB (CK-2) CK-MB (CK-2) Rel Index Troponin T C-Reactive Protein NT-Pro-B Natriuret Pep Total Protein 4.9 L Albumin 2.3 L HDL Cholesterol Ur Specific [place] Urine WBC (Auto) Crossmatch 01/01/19 01/01/19 01/01/19 07:33 11:37 13:55 WBC RBC Hgb Hct RDW Plt Count Lymph % (Auto) [place] % (Auto) Lymph # [place] # Seg Neutrophils % PT INR D-Dimer Heparin Anti-Xa Level POC ABG pH 7.242 L POC ABG pCO2 55.3 H POC ABG pO2 Sodium Potassium Chloride Carbon Dioxide BUN Creatinine Glucose POC Glucose 137 H 133 H Lactic Acid Calcium Iron TIBC Total Bilirubin AST ALT Lactate Dehydrogenase Total Creatine Kinase CK-MB (CK-2) CK-MB (CK-2) Rel Index Troponin T C-Reactive Protein NT-Pro-B Natriuret Pep Total Protein Albumin HDL Cholesterol Ur Specific [place] Urine WBC (Auto) Crossmatch 01/01/19 01/01/19 01/01/19 15:44 16:51 21:35 WBC RBC Hgb Hct RDW Plt Count Lymph % (Auto) [place] % (Auto) Lymph # [place] # Seg Neutrophils % PT INR D-Dimer Heparin Anti-Xa Level POC ABG pH 7.298 L POC ABG pCO2 50.6 H POC ABG pO2 Sodium Potassium Chloride Carbon Dioxide BUN Creatinine Glucose POC Glucose 139 H 106 H Lactic Acid Calcium Iron TIBC Total Bilirubin AST ALT Lactate Dehydrogenase Total Creatine Kinase CK-MB (CK-2) CK-MB (CK-2) Rel Index Troponin T C-Reactive Protein NT-Pro-B Natriuret Pep Total Protein Albumin HDL Cholesterol Ur Specific [place] Urine WBC (Auto) Crossmatch 01/02/19 01/02/19 01/02/19 03:13 04:40 05:09 WBC 3.9 L RBC Hgb Hct RDW 16.1 H Plt Count 94 L Lymph % (Auto) 7.5 L [place] % (Auto) 14.2 H Lymph # 0.3 L [place] # Seg Neutrophils % 76.5 H PT INR D-Dimer Heparin Anti-Xa Level POC ABG pH 7.206 L POC ABG pCO2 65.8 H POC ABG pO2 62 L Sodium Potassium Chloride Carbon Dioxide BUN Creatinine Glucose POC Glucose 124 H Lactic Acid Calcium Iron TIBC Total Bilirubin AST ALT Lactate Dehydrogenase Total Creatine Kinase CK-MB (CK-2) CK-MB (CK-2) Rel Index Troponin T C-Reactive Protein NT-Pro-B Natriuret Pep Total Protein Albumin HDL Cholesterol Ur Specific [place] Urine WBC (Auto) Crossmatch 01/02/19 01/02/19 01/02/19 05:09 05:32 10:25 WBC RBC Hgb Hct RDW Plt Count Lymph % (Auto) [place] % (Auto) Lymph # [place] # Seg Neutrophils % PT INR D-Dimer Heparin Anti-Xa Level POC ABG pH POC ABG pCO2 POC ABG pO2 Sodium Potassium Chloride 107.4 H Carbon Dioxide BUN Creatinine Glucose 133 H POC Glucose 130 H 108 H Lactic Acid Calcium 8.3 L Iron 34 L TIBC 231 L Total Bilirubin AST ALT Lactate Dehydrogenase Total Creatine Kinase CK-MB (CK-2) CK-MB (CK-2) Rel Index Troponin T C-Reactive Protein NT-Pro-B Natriuret Pep Total Protein Albumin HDL Cholesterol Ur Specific [place] Urine WBC (Auto) Crossmatch 01/02/19 01/02/19 11:21 11:42 WBC RBC Hgb Hct RDW Plt Count Lymph % (Auto) [place] % (Auto) Lymph # [place] # Seg Neutrophils % PT INR D-Dimer Heparin Anti-Xa Level POC ABG pH 7.318 L POC ABG pCO2 56.7 H POC ABG pO2 215 H Sodium Potassium Chloride Carbon Dioxide BUN Creatinine Glucose POC Glucose 152 H Lactic Acid Calcium Iron TIBC Total Bilirubin AST ALT Lactate Dehydrogenase Total Creatine Kinase CK-MB (CK-2) CK-MB (CK-2) Rel Index Troponin T C-Reactive Protein NT-Pro-B Natriuret Pep Total Protein Albumin HDL Cholesterol Ur Specific [place] Urine WBC (Auto) Crossmatch Chest x-ray: image reviewed (Chest tube in place) Allied health notes reviewed: nursing
[2019-01-02] MEDS: MAXIPIME/NS 2 GM/100 ML 2 GM/100 ML BAG IV SCH ×3 (14:04→21:55)
[2019-01-02] MEDS: FLAGYL 500 MG/100 ML 500 MG/100 ML BAG IV SCH ×3 (14:05→21:55)
--- NOTE | 2019-01-02 14:08 | XRay Report ---
AP CHEST: HISTORY: Pneumothorax Endotracheal tube and nasogastric tube have been removed since yesterday's exam. The right chest tube remains in the same position. No pneumothorax is demonstrated. Cardiomegaly and pulmonary venous congestion are stable. IMPRESSION: No evidence for pneumothorax.
--- NOTE | 2019-01-02 20:44 | Progress Note ---
Assessment and Plan - Patient Problems (1) Pleural effusion, right Current Visit: Yes Status: Acute Plan to address problem: Pt stable. s/p R CT placement - 12/29/18 - Would consider transition to waterseal. Leave CT until output decreases to less than 300cc/day. Can be removed whenever Assistant Professor Of Communication/Thoracic Surgeon decide to. Will be available as needed. Please call with questions. Time=10min Subjective Date of service: 01/02/19 Patient Reports: Positive: other (pt on BiPap) Objective Vital Signs - 12hr 01/02/19 01/02/19 01/02/19 08:50 09:00 09:10 Temperature Pulse Rate 95 H 97 H 95 H Pulse Rate [ Anterior Bilateral Throughout] Pulse Rate [ Bilateral] Pulse Rate [ From Monitor] Respiratory 15 17 18 Rate Respiratory Rate [Anterior Bilateral Throughout] Respiratory Rate [Bilateral ] Blood Pressure 144/68 151/79 151/79 O2 Sat by Pulse 100 99 98 Oximetry 01/02/19 01/02/19 01/02/19 09:20 09:30 09:40 Temperature Pulse Rate 94 H 91 H 90 Pulse Rate [ Anterior Bilateral Throughout] Pulse Rate [ Bilateral] Pulse Rate [ From Monitor] Respiratory 19 19 18 Rate Respiratory Rate [Anterior Bilateral Throughout] Respiratory Rate [Bilateral ] Blood Pressure 151/79 151/79 151/79 O2 Sat by Pulse 99 98 99 Oximetry 01/02/19 01/02/19 01/02/19 09:50 10:00 10:10 Temperature Pulse Rate 91 H 91 H 91 H Pulse Rate [ Anterior Bilateral Throughout] Pulse Rate [ Bilateral] Pulse Rate [ From Monitor] Respiratory 18 17 17 Rate Respiratory Rate [Anterior Bilateral Throughout] Respiratory Rate [Bilateral ] Blood Pressure 151/79 154/70 154/70 O2 Sat by Pulse 98 99 99 Oximetry 01/02/19 01/02/19 01/02/19 10:20 10:30 10:40 Temperature Pulse Rate 92 H 93 H 92 H Pulse Rate [ Anterior Bilateral Throughout] Pulse Rate [ Bilateral] Pulse Rate [ From Monitor] Respiratory 18 18 18 Rate Respiratory Rate [Anterior Bilateral Throughout] Respiratory Rate [Bilateral ] Blood Pressure 154/70 154/70 154/70 O2 Sat by Pulse 98 99 99 Oximetry 01/02/19 01/02/19 01/02/19 10:50 11:00 11:10 Temperature Pulse Rate 90 88 88 Pulse Rate [ Anterior Bilateral Throughout] Pulse Rate [ Bilateral] Pulse Rate [ From Monitor] Respiratory 20 21 17 Rate Respiratory Rate [Anterior Bilateral Throughout] Respiratory Rate [Bilateral ] Blood Pressure 154/70 145/79 145/79 O2 Sat by Pulse 98 99 100 Oximetry 01/02/19 01/02/19 01/02/19 11:18 11:20 11:30 Temperature Pulse Rate 88 83 85 Pulse Rate [ Anterior Bilateral Throughout] Pulse Rate [ Bilateral] Pulse Rate [ From Monitor] Respiratory 31 H 16 18 Rate Respiratory Rate [Anterior Bilateral Throughout] Respiratory Rate [Bilateral ] Blood Pressure 145/79 145/79 145/79 O2 Sat by Pulse 100 100 97 Oximetry 01/02/19 01/02/19 01/02/19 11:40 11:50 12:00 Temperature 97.7 F Pulse Rate 82 79 80 Pulse Rate [ Anterior Bilateral Throughout] Pulse Rate [ Bilateral] Pulse Rate [ 79 From Monitor] Respiratory 19 18 19 Rate Respiratory Rate [Anterior Bilateral Throughout] Respiratory Rate [Bilateral ] Blood Pressure 145/79 145/79 145/79 O2 Sat by Pulse 97 97 97 Oximetry 01/02/19 01/02/19 01/02/19 12:10 12:20 12:30 Temperature Pulse Rate 78 78 78 Pulse Rate [ Anterior Bilateral Throughout] Pulse Rate [ Bilateral] Pulse Rate [ From Monitor] Respiratory 20 20 21 Rate Respiratory Rate [Anterior Bilateral Throughout] Respiratory Rate [Bilateral ] Blood Pressure 129/67 129/67 129/67 O2 Sat by Pulse 96 95 97 Oximetry 01/02/19 01/02/19 01/02/19 12:40 12:50 13:00 Temperature Pulse Rate 75 79 81 Pulse Rate [ Anterior Bilateral Throughout] Pulse Rate [ Bilateral] Pulse Rate [ From Monitor] Respiratory 20 16 16 Rate Respiratory Rate [Anterior Bilateral Throughout] Respiratory Rate [Bilateral ] Blood Pressure 129/67 129/67 151/80 O2 Sat by Pulse 97 98 99 Oximetry 01/02/19 01/02/19 01/02/19 13:10 13:20 13:30 Temperature Pulse Rate 82 84 77 Pulse Rate [ Anterior Bilateral Throughout] Pulse Rate [ Bilateral] Pulse Rate [ From Monitor] Respiratory 18 16 19 Rate Respiratory Rate [Anterior Bilateral Throughout] Respiratory Rate [Bilateral ] Blood Pressure 151/80 151/80 151/80 O2 Sat by Pulse 99 99 99 Oximetry 01/02/19 01/02/19 01/02/19 13:40 13:50 14:00 Temperature Pulse Rate 76 76 74 Pulse Rate [ Anterior Bilateral Throughout] Pulse Rate [ Bilateral] Pulse Rate [ From Monitor] Respiratory 20 22 26 H Rate Respiratory Rate [Anterior Bilateral Throughout] Respiratory Rate [Bilateral ] Blood Pressure 151/80 151/80 126/78 O2 Sat by Pulse 99 98 97 Oximetry 01/02/19 01/02/19 01/02/19 14:10 14:20 14:23 Temperature Pulse Rate 79 81 80 Pulse Rate [ Anterior Bilateral Throughout] Pulse Rate [ Bilateral] Pulse Rate [ From Monitor] Respiratory 20 22 30 H Rate Respiratory Rate [Anterior Bilateral Throughout] Respiratory Rate [Bilateral ] Blood Pressure 126/78 126/78 126/78 O2 Sat by Pulse 97 99 98 Oximetry 01/02/19 01/02/19 01/02/19 14:24 14:30 14:35 Temperature Pulse Rate 78 Pulse Rate [ Anterior Bilateral Throughout] Pulse Rate [ 80 81 Bilateral] Pulse Rate [ From Monitor] Respiratory 30 H Rate Respiratory Rate [Anterior Bilateral Throughout] Respiratory 30 H 30 H Rate [Bilateral ] Blood Pressure 126/78 O2 Sat by Pulse 100 Oximetry 01/02/19 01/02/19 01/02/19 14:40 14:50 15:00 Temperature Pulse Rate 78 74 81 Pulse Rate [ Anterior Bilateral Throughout] Pulse Rate [ Bilateral] Pulse Rate [ From Monitor] Respiratory 30 H 30 H 30 H Rate Respiratory Rate [Anterior Bilateral Throughout] Respiratory Rate [Bilateral ] Blood Pressure 126/78 126/78 126/78 O2 Sat by Pulse 99 99 100 Oximetry 01/02/19 01/02/19 01/02/19 15:10 15:20 15:30 Temperature Pulse Rate 77 80 77 Pulse Rate [ Anterior Bilateral Throughout] Pulse Rate [ Bilateral] Pulse Rate [ From Monitor] Respiratory 30 H 30 H 30 H Rate Respiratory Rate [Anterior Bilateral Throughout] Respiratory Rate [Bilateral ] Blood Pressure 121/85 121/85 121/85 O2 Sat by Pulse 100 100 100 Oximetry 01/02/19 01/02/19 01/02/19 15:39 15:40 15:50 Temperature 98.1 F Pulse Rate 80 79 Pulse Rate [ Anterior Bilateral Throughout] Pulse Rate [ Bilateral] Pulse Rate [ From Monitor] Respiratory 30 H 30 H Rate Respiratory Rate [Anterior Bilateral Throughout] Respiratory Rate [Bilateral ] Blood Pressure 121/85 121/85 O2 Sat by Pulse 100 100 Oximetry 01/02/19 01/02/1901/02/19 16:00 16:10 16:20 Temperature Pulse Rate 76 76 76 Pulse Rate [ Anterior Bilateral Throughout] Pulse Rate [ Bilateral] Pulse Rate [ 76 From Monitor] Respiratory 30 H 30 H 30 H Rate Respiratory Rate [Anterior Bilateral Throughout] Respiratory Rate [Bilateral ] Blood Pressure 118/79 118/79 118/79 O2 Sat by Pulse 100 99 99 Oximetry 01/02/19 01/02/19 01/02/19 16:30 16:40 16:50 Temperature Pulse Rate 74 74 74 Pulse Rate [ Anterior Bilateral Throughout] Pulse Rate [ Bilateral] Pulse Rate [ From Monitor] Respiratory 30 H 30 H 27 H Rate Respiratory Rate [Anterior Bilateral Throughout] Respiratory Rate [Bilateral ] Blood Pressure 118/79 118/79 118/79 O2 Sat by Pulse 99 99 99 Oximetry 01/02/19 01/02/19 01/02/19 17:00 17:10 17:20 Temperature Pulse Rate 74 77 72 Pulse Rate [ Anterior Bilateral Throughout] Pulse Rate [ Bilateral] Pulse Rate [ From Monitor] Respiratory 27 H 30 H 29 H Rate Respiratory Rate [Anterior Bilateral Throughout] Respiratory Rate [Bilateral ] Blood Pressure 118/79 121/79 121/79 O2 Sat by Pulse 99 97 98 Oximetry 01/02/19 01/02/19 01/02/19 17:30 17:38 17:40 Temperature Pulse Rate 76 77 74 Pulse Rate [ Anterior Bilateral Throughout] Pulse Rate [ Bilateral] Pulse Rate [ From Monitor] Respiratory 30 H 30 H 30 H Rate Respiratory Rate [Anterior Bilateral Throughout] Respiratory Rate [Bilateral ] Blood Pressure 121/79 121/79 121/79 O2 Sat by Pulse 96 99 98 Oximetry 01/02/19 01/02/19 01/02/19 17:50 18:00 18:10 Temperature Pulse Rate 73 76 81 Pulse Rate [ Anterior Bilateral Throughout] Pulse Rate [ Bilateral] Pulse Rate [ From Monitor] Respiratory 30 H 25 H 14 Rate Respiratory Rate [Anterior Bilateral Throughout] Respiratory Rate [Bilateral ] Blood Pressure 121/79 121/79 129/84 O2 Sat by Pulse 98 99 100 Oximetry 01/02/19 01/02/19 01/02/19 18:20 18:30 18:40 Temperature Pulse Rate 75 75 78 Pulse Rate [ Anterior Bilateral Throughout] Pulse Rate [ Bilateral] Pulse Rate [ From Monitor] Respiratory 18 16 24 Rate Respiratory Rate [Anterior Bilateral Throughout] Respiratory Rate [Bilateral ] Blood Pressure 129/84 129/84 129/84 O2 Sat by Pulse 98 98 99 Oximetry 01/02/19 01/02/19 01/02/19 18:50 19:00 19:10 Temperature Pulse Rate 79 79 78 Pulse Rate [ Anterior Bilateral Throughout] Pulse Rate [ Bilateral] Pulse Rate [ From Monitor] Respiratory 29 H 22 27 H Rate Respiratory Rate [Anterior Bilateral Throughout] Respiratory Rate [Bilateral ] Blood Pressure 129/84 125/83 125/83 O2 Sat by Pulse 98 98 99 Oximetry 01/02/19 01/02/19 01/02/19 19:20 19:23 19:30 Temperature Pulse Rate 73 70 Pulse Rate [ 73 Anterior Bilateral Throughout] Pulse Rate [ 72 Bilateral] Pulse Rate [ From Monitor] Respiratory 12 20 Rate Respiratory 22 Rate [Anterior Bilateral Throughout] Respiratory 20 Rate [Bilateral ] Blood Pressure 125/83 125/83 O2 Sat by Pulse 99 100 Oximetry 01/02/19 19:40 Temperature Pulse Rate 74 Pulse Rate [ Anterior Bilateral Throughout] Pulse Rate [ Bilateral] Pulse Rate [ From Monitor] Respiratory 22 Rate Respiratory Rate [Anterior Bilateral Throughout] Respiratory Rate [Bilateral ] Blood Pressure 125/83 O2 Sat by Pulse 100 Oximetry - General physical appearance no distress, no pain, other (extubated on BiPap) - Respiratory other (shallow breaths. decreased breaths on the right. faint bilaterally. CT with serous drainage. no airleak. No tidaling) - Labs 01/02/19 05:09 01/02/19 05:09 Diabetes panel 01/02/19 Range/Units 05:09 Sodium 144 (137-145) mmol/L Potassium 4.1 (3.6-5.0) mmol/L Chloride 107.4 H (98-107) mmol/L Carbon Dioxide 26 (22-30) mmol/L BUN 15 (9-20) mg/dL Creatinine 1.0 (0.8-1.5) mg/dL Glucose 133 H (75-100) mg/dL Calcium 8.3 L (8.4-10.2) mg/dL Calcium panel 01/02/19 Range/Units 05:09 Calcium 8.3 L (8.4-10.2) mg/dL Pituitary panel 01/02/19 Range/Units 05:09 Sodium 144 (137-145) mmol/L Potassium 4.1 (3.6-5.0) mmol/L Chloride 107.4 H (98-107) mmol/L Carbon Dioxide 26 (22-30) mmol/L BUN 15 (9-20) mg/dL Creatinine 1.0 (0.8-1.5) mg/dL Glucose 133 H (75-100) mg/dL Calcium 8.3 L (8.4-10.2) mg/dL Adrenal panel 01/02/19 Range/Units 05:09 Sodium 144 (137-145) mmol/L Potassium 4.1 (3.6-5.0) mmol/L Chloride 107.4 H (98-107) mmol/L Carbon Dioxide 26 (22-30) mmol/L BUN 15 (9-20) mg/dL Creatinine 1.0 (0.8-1.5) mg/dL Glucose 133 H (75-100) mg/dL Calcium 8.3 L (8.4-10.2) mg/dL
[2019-01-02] MEDS: ARIXTRA SUB-Q SCH ×2 (21:54)
--- NOTE | 2019-01-02 22:40 | Vascular Lab Report ---
PROCEDURE: US BILATERAL LOWER EXTREMITY ARTERIAL DUPLEX DOPPLER TECHNIQUE: Duplex Doppler ultrasound of either the bilateral lower extremity arteries or arterial by pass grafts was performed with image documentation. HISTORY: Nonpalpable left pedal pulses COMPARISONS: None . FINDINGS: Right lower extremity: Arterial waveforms: There are triphasic waveforms from the common femoral artery to the popliteal ar javi. Triphasic waveforms are seen in the posterior tibial artery. Monophasic waveforms are seen in t he anterior tibial artery . Thrombus/Stenosis: None . Color signal: Normal . Significant segmental velocity differential: None . Decreased blood flow is seen in the distal anterior tibial artery. Left lower extremity: Arterial waveforms: Triphasic waveforms are seen from the common femoral artery to the popliteal art emmanuel. There are triphasic waveforms in the posterior tibial artery. Biphasic waveforms are seen in the anterior tibial artery . Thrombus/Stenosis: None . Color signal: Normal . Significant segmental velocity differential: None . IMPRESSION: Mild peripheral arterial disease involving the anterior tibial arteries bilaterally. No hemodynamical ly significant focal stenosis is seen. Note that the dorsalis pedis arteries were not evaluated on th is exam. This document is electronically signed by Iman Guerrero MD., January 02 2019 10:38:23 PM ET
[2019-01-02] MEDS: KEPPRA 500 MG in NACL 0.9% 100 ML IV SCH (22:50)
[2019-01-03] MEDS: HumuLIN R SUB-Q SCH ×3 (02:00→18:00)
[2019-01-03] MEDS: DUONEB *Not for PRN Use IH SCH ×4 (02:26→20:05)
[2019-01-03] MEDS: FLAGYL 500 MG/100 ML 500 MG/100 ML BAG IV SCH ×3 (05:17→21:18)
[2019-01-03] MEDS: MAXIPIME/NS 2 GM/100 ML 2 GM/100 ML BAG IV SCH ×3 (05:17→21:18)
[2019-01-03 05:22] LABS: Hemoglobin 11.6 gm/dl (11.8-15.2)
--- NOTE | 2019-01-03 08:08 | Hem/Onc Progress Note ---
Assessment and Plan 1. Deep venous thrombosis, left common femoral and right peroneal; bilateral leg swelling present. The patient was placed on heparin drip. Her platelets have slightly fallen down. 2. The patient's platelet count at admission was 99 and then 196, 125, and 114. I do not have any information about the patient's baseline platelet count. HIT investigation, it is possible that the patient's baseline platelets are also low. 3. History of diabetes. 4. History of coronary artery disease. 5. Radiology shows right pleural effusion. 6. History of seizure disorder as per the notes. 7. Myocardial infarction. 8. Status post coronary artery bypass graft. 9. Electrolyte imbalance. 10. History of cerebrovascular accident. 11. History of pneumonia. 12. rt chest tube - h/o pl effusion 01/03 arixtra plt >100 US abdo limited - does not mention liver and spleen size. HIT antibodies ordered using CPAP rt chest tube+ clinicallyy less likely HIT - Patient Problems (1) DVT (deep venous thrombosis) Current Visit: Yes Status: Acute (2) Thrombocytopenia Current Visit: Yes Status: Acute Subjective Date of service: 01/03/19 Principal diagnosis: dvt and low plt Interval history: using CPAP edema better Objective - Constitutional Vitals: Last Vital Signs Temp 99.3 F 01/03/19 04:00 Pulse 82 01/03/19 06:51 Resp 12 01/03/19 06:51 BP 154/85 01/03/19 06:51 Pulse Ox 97 01/03/19 06:51 Pain Intensity (0-10): denies any pain General appearance: no acute distress Performance status: 4-completely disabled - EENT Eyes: EOM intact ENT: hearing intact Lymph node exam: negative cervical - Neck Neck: normal ROM - Respiratory Respiratory effort: Positive: normal Respiratory: bilateral: diminished - Cardiovascular Heart Sounds: Present: S1 & S2 Extremity abnormal: edema - Gastrointestinal General gastrointestinal: Present: soft, non-tender Rectal Exam: deferred - Genitourinary Male genitourinary: Present: deferred - Integumentary Integumentary: warm - Musculoskeletal Musculoskeletal: strength equal bilaterally - Neurologic Neurologic: moves all extremities - Labs Lab Results: Laboratory Results - last 24 hr 01/02/19 01/02/19 01/02/19 05:09 05:09 05:09 Hgb Hct Plt Count POC ABG pH POC ABG pCO2 POC ABG pO2 POC ABG HCO3 POC ABG Total CO2 POC ABG O2 Sat POC ABG Base Excess FiO2 POC Glucose Ferritin 163.3 Vitamin B12 365.3 Folate 6.01 L 01/02/19 01/02/19 01/02/19 10:25 11:21 11:42 Hgb Hct Plt Count POC ABG pH 7.318 L POC ABG pCO2 56.7 H POC ABG pO2 215 H POC ABG HCO3 29.1 POC ABG Total CO2 31 POC ABG O2 Sat 100 POC ABG Base Excess 3 FiO2 60 POC Glucose 108 H 152 H Ferritin Vitamin B12 Folate 01/02/19 01/02/19 01/02/19 15:43 17:37 21:31 Hgb Hct Plt Count POC ABG pH POC ABG pCO2 POC ABG pO2 POC ABG HCO3 POC ABG Total CO2 POC ABG O2 Sat POC ABG Base Excess FiO2 POC Glucose 105 107 H 88 Ferritin Vitamin B12 Folate 01/03/19 01/03/19 01/03/19 01:56 04:28 05:42 Hgb 11.6 L Hct 36.0 Plt Count 105 L POC ABG pH POC ABG pCO2 POC ABG pO2 POC ABG HCO3 POC ABG Total CO2 POC ABG O2 Sat POC ABG Base Excess FiO2 POC Glucose 89 99 Ferritin Vitamin B12 Folate Medications & Allergies - Medications Allergies/Adverse Reactions: Allergies Penicillins Allergy (Verified 12/29/18 04:18) Unknown Home Medications: Home Medications Medication Instructions Recorded Confirmed Last Taken Type Aspirin 81 mg PO DAILY 12/30/18 12/30/18 12/30/18 History AtorvaSTATin 40 mg PO HS 12/30/18 12/30/18 12/28/18 History Clopidogrel Bisulfate [Clopidogrel] 75 mg PO DAILY 12/30/18 12/30/18 12/28/18 History Furosemide 40 mg PO DAILY 12/30/18 12/30/18 12/28/18 History Gabapentin [Neurontin] 300 mg PO HS 12/30/18 12/30/18 12/28/18 History Losartan [Cozaar] 50 mg .ROUTE DAILY 12/30/18 12/30/18 12/28/18 History Metformin ER (Nf) 500 gm .ROUTE BID 12/30/18 12/30/18 12/28/18 History Metoprolol 50 mg PO DAILY 12/30/18 12/30/1819 History Potassium 10 meq PO DAILY 12/30/18 12/30/18 12/28/18 History Ropinirole HCl 1 mg PO DAILY 12/30/18 12/30/18 12/28/18 History Sertraline 25 mg PO DAILY 12/30/18 12/30/18 12/28/18 History Sertraline 75 mg PO DAILY 12/30/18 12/30/18 12/28/18 History Active Medications: Generic Name Dose Route Start Last Admin Trade Name Freq PRN Reason Stop Dose Admin Acetaminophen 650 mg 12/29/18 04:49 12/30/18 08:33 Tylenol HI 650 mg Q4H PRN Administration Fever >101 Albuterol/Ipratropium 1 ampul 01/01/19 14:00 01/03/19 02:26 Duoneb *Not For Prn Use* IH Not Given Q6HRT WENDY Lipase/Protease/Amylase 1 each 12/31/18 15:[address] 10,500 Unit FEEDTUBE PRN PRN For Clogged Feeding Tube Dextrose 50 ml 12/29/18 04:47 D50w (25gm) Syringe IV PRN PRN Hypoglycemia Famotidine 20 mg 01/02/19 10:00 01/02/19 21:55 Pepcid IV 20 mg BID WENDY Administration Fentanyl 25 mcg 12/30/18 14:26 01/02/19 00:23 Sublimaze IV 25 mcg Q2H PRN Administration Pain , Severe (7-10) Fondaparinux 7.5 mg 01/01/19 22:00 01/02/19 21:54 Arixtra SUB-Q 7.5 mg Q24H WENDY Administration Fondaparinux 2.5 mg 01/01/19 22:00 01/02/19 21:54 Arixtra SUB-Q 2.5 mg Q24H WENDY Administration Furosemide 20 mg 01/01/19 14:00 01/02/19 09:59 Lasix IV 20 mg QDAY WENDY Administration Hydralazine HCl 10 mg 01/01/19 13:23 Apresoline IV Q4HR PRN SBP >/=170 Norepinephrine 4 mg in 250 mls @ 37.5 mls/hr 12/29/18 20:00 01/01/19 07:00 Levophed Drip 4 Mg/Ns 250 Ml IV Infused TITR WENDY Titration Protocol 10 MCG/MIN Metronidazole 500 mg in 100 mls @ 100 mls/hr 12/30/18 14:00 01/03/19 05:17 Flagyl 500 Mg/100 Ml IV 01/08/19 13:59 100 mls/hr Q8HR WENDY Administration Protocol Cefepime HCl 2 gm in 100 mls @ 200 mls/hr 12/31/18 14:00 01/03/19 05:17 Maxipime/Ns 2 Gm/100 Ml IV 01/08/19 13:59 200 mls/hr Q8HR WENDY Administration Protocol Levetiracetam 500 mg/ Sodium 105 mls @ 420 mls/hr 01/02/19 22:00 01/02/19 22:50 Chloride IV 420 mls/hr Q12HR WENDY Administration Insulin Human Regular 0 units 12/29/18 05:00 01/03/19 02:00 Humulin R SUB-Q Not Given Q4H [facility] Protocol Ondansetron HCl 4 mg 12/29/18 04:49 Zofran IV Q8H PRN Nausea And Vomiting Simple Syrup 15 ml 12/31/18 15:06 Simple Syrup FEEDTUBE PRN PRN Hypoglycemia Simple Syrup 30 ml 12/31/18 15:06 Simple Syrup FEEDTUBE PRN PRN Hypoglycemia Sodium Bicarbonate 325 mg 12/31/18 15:06 Sodium Bicarbonate FEEDTUBE PRN PRN For Clogged Feeding Tube
--- NOTE | 2019-01-03 09:01 | Progress Note ---
Assessment and Plan Acute Hypoxic Respiratory failure- s/p extubated 01/01. now on BIPAP Seizure Disorder DVT bilateral lower extremity Sepsis Right sided Pneumonia Large Right sided Pleural effusion- s/p chest tube, pending fluid analysis Shock syndrome questionable septic versus cardiogenic Hypokalemia Morbid Obesity Thrombocytopenia Non ST elevated [place] type II Presumed ischemic cardiomyopathy status post CABG Acute metabolic encephalopathy Hyponatremia Hypocalcemia History of CVA 2 years ago CXR revealed significant re-expansion of right lung post chest tube placement with bilateral alveolar infiltrates,pulmonary edema -Start high flow oxygen therapy, titrate flow and FIO2 for O2 sats 88-90% -PT/OT/Mobility -[employer] to evaluate for dysphagia prior to initiation of oral feeding -CT chest in the next 48 hours to re-evaluate the right pleural space. with his bilateral DVTS and right pleural effusion, must r/o malignancy -ABG in am -Bronchodilators -OK to start oral anticoagulation therapy -Gentle diuresis while monitoring renal function, hemodynamics and electrolyte profile - complete empiric antibiotics for CAP / Sepsis per ID recs - Follow tracheal aspirate, urine & blood cultures and adjust antibiotic therapy based on LEXI/ID - resume chronic home medications per attending - continue accuchecks with glycemic control for target glucose of 140-180 mg/dL - Maintenance of sleep-wake cycle - Influenza and pneumonia vaccination per protocol PROGNOSIS GUARDED CONDITION: CRITICAL CODE STATUS: FULL CODE The high probability of a clinically significant, sudden or life-threatening deterioration of the [respiratory, neurology,] system(s) required my full and direct attention, intervention and personal management. The aggregate critical care time was [32] minutes without overlap. Time includes spent on; [x] Data Review and interpretation [x] Patient assessment and monitoring of vital signs [x] Documentation [x] Medication orders and management Subjective Date of service: 01/03/19 Principal diagnosis: Acute hypoxemic hypercapnic Resp failure on MVS; Zack. pleural effusions Interval history: Acute hypoxemic hypercapnic respiratory failure on MVS; Bilateral pleural effusions, complex looking on the right; Right lung complete atelectasis; Right pneumonia (appears to be community-acquired); Severe sepsis with shock, on Levophed Seen and examined at bedside; 24hour events reviewed; nursing and respiratory care staff consulted; no adverse overnight events reported to me; extubated direct to BIPAP , he has remained on continuous BIPAP; no N/V/F/C; FiO2 at 60%; placed on Arixtra for VTE re: thrombocytopenia, no fevers, no nausea or vomiting. Discussed with ICU team during IDT rounds Objective Vital Signs - 12hr 01/02/19 01/02/19 01/02/19 21:10 21:20 21:30 Temperature Pulse Rate 79 77 80 Pulse Rate [ Anterior Bilateral Throughout] Pulse Rate [ Bilateral] Pulse Rate [ From Monitor] Pulse Rate [ Left Dorsalis Pedis] Pulse Rate [ Right Dorsalis Pedis] Respiratory 28 H 22 14 Rate Respiratory Rate [Anterior Bilateral Throughout] Respiratory Rate [Bilateral ] Blood Pressure 139/82 139/82 139/82 O2 Sat by Pulse 100 99 100 Oximetry 01/02/19 01/02/19 01/02/19 21:41 21:51 22:01 Temperature Pulse Rate 81 84 80 Pulse Rate [ Anterior Bilateral Throughout] Pulse Rate [ Bilateral] Pulse Rate [ From Monitor] Pulse Rate [ Left Dorsalis Pedis] Pulse Rate [ Right Dorsalis Pedis] Respiratory 20 19 16 Rate Respiratory Rate [Anterior Bilateral Throughout] Respiratory Rate [Bilateral ] Blood Pressure 139/82 149/80 O2 Sat by Pulse 99 95 97 Oximetry 01/02/19 01/02/19 01/02/19 22:05 22:11 22:21 Temperature Pulse Rate 79 77 Pulse Rate [ Anterior Bilateral Throughout] Pulse Rate [ Bilateral] Pulse Rate [ From Monitor] Pulse Rate [ 80 Left Dorsalis Pedis] Pulse Rate [ 80 Right Dorsalis Pedis] Respiratory 16 23 16 Rate Respiratory Rate [Anterior Bilateral Throughout] Respiratory Rate [Bilateral ] Blood Pressure 149/80 149/80 O2 Sat by Pulse 97 99 98 Oximetry 01/02/19 01/02/19 01/02/19 22:31 22:41 22:51 Temperature Pulse Rate 83 82 80 Pulse Rate [ Anterior Bilateral Throughout] Pulse Rate [ Bilateral] Pulse Rate [ From Monitor] Pulse Rate [ Left Dorsalis Pedis] Pulse Rate [ Right Dorsalis Pedis] Respiratory 17 14 19 Rate Respiratory Rate [Anterior Bilateral Throughout] Respiratory Rate [Bilateral ] Blood Pressure 149/80 149/80 149/80 O2 Sat by Pulse 99 99 99 Oximetry 01/02/19 01/02/19 01/02/19 23:00 23:01 23:11 Temperature Pulse Rate 81 81 81 Pulse Rate [ Anterior Bilateral Throughout] Pulse Rate [ Bilateral] Pulse Rate [ From Monitor] Pulse Rate [ Left Dorsalis Pedis] Pulse Rate [ Right Dorsalis Pedis] Respiratory 21 15 13 Rate Respiratory Rate [Anterior Bilateral Throughout] Respiratory Rate [Bilateral ] Blood Pressure 149/81 149/81 149/81 O2 Sat by Pulse 100 100 99 Oximetry 01/02/19 01/02/19 01/02/19 23:21 23:31 23:41 Temperature Pulse Rate 80 77 77 Pulse Rate [ Anterior Bilateral Throughout] Pulse Rate [ Bilateral] Pulse Rate [ From Monitor] Pulse Rate [ Left Dorsalis Pedis] Pulse Rate [ Right Dorsalis Pedis] Respiratory 17 18 14 Rate Respiratory Rate [Anterior Bilateral Throughout] Respiratory Rate [Bilateral ] Blood Pressure 149/81 149/81 149/81 O2 Sat by Pulse 99 100 99 Oximetry 01/02/19 01/03/19 01/03/19 23:51 00:00 00:11 Temperature 99.0 F Pulse Rate 76 82 81 Pulse Rate [ Anterior Bilateral Throughout] Pulse Rate [ Bilateral] Pulse Rate [ From Monitor] Pulse Rate [ 82 Left Dorsalis Pedis] Pulse Rate [ 82 Right Dorsalis Pedis] Respiratory 8 L 20 26 H Rate Respiratory Rate [Anterior Bilateral Throughout] Respiratory Rate [Bilateral ] Blood Pressure 149/81 157/89 157/89 O2 Sat by Pulse 100 100 99 Oximetry 01/03/19 01/03/19 01/03/19 00:21 00:31 00:41 Temperature Pulse Rate 80 77 79 Pulse Rate [ Anterior Bilateral Throughout] Pulse Rate [ Bilateral] Pulse Rate [ From Monitor] Pulse Rate [ Left Dorsalis Pedis] Pulse Rate [ Right Dorsalis Pedis] Respiratory 19 12 13 Rate Respiratory Rate [Anterior Bilateral Throughout] Respiratory Rate [Bilateral ] Blood Pressure 157/89 157/89 157/89 O2 Sat by Pulse 99 98 99 Oximetry 01/03/19 01/03/19 01/03/19 00:50 01:00 01:11 Temperature Pulse Rate 74 78 80 Pulse Rate [ Anterior Bilateral Throughout] Pulse Rate [ Bilateral] Pulse Rate [ From Monitor] Pulse Rate [ Left Dorsalis Pedis] Pulse Rate [ Right Dorsalis Pedis] Respiratory 8 L 14 18 Rate Respiratory Rate [Anterior Bilateral Throughout] Respiratory Rate [Bilateral ] Blood Pressure 157/89 154/86 154/86 O2 Sat by Pulse 99 99 99 Oximetry 01/03/19 01/03/19 01/03/19 01:21 01:31 01:41 Temperature Pulse Rate 82 82 83 Pulse Rate [ Anterior Bilateral Throughout] Pulse Rate [ Bilateral] Pulse Rate [ From Monitor] Pulse Rate [ Left Dorsalis Pedis] Pulse Rate [ Right Dorsalis Pedis] Respiratory 17 20 14 Rate Respiratory Rate [Anterior Bilateral Throughout] Respiratory Rate [Bilateral ] Blood Pressure 154/86 154/86 154/86 O2 Sat by Pulse 98 97 98 Oximetry 01/03/19 01/03/19 01/03/19 01:51 02:00 02:11 Temperature Pulse Rate 84 84 73 Pulse Rate [ Anterior Bilateral Throughout] Pulse Rate [ Bilateral] Pulse Rate [ From Monitor] Pulse Rate [ Left Dorsalis Pedis] Pulse Rate [ Right Dorsalis Pedis] Respiratory 27 H 20 29 H Rate Respiratory Rate [Anterior Bilateral Throughout] Respiratory Rate [Bilateral ] Blood Pressure 154/86 146/89 146/89 O2 Sat by Pulse 96 94 97 Oximetry 01/03/19 01/03/19 01/03/19 02:21 02:31 02:41 Temperature Pulse Rate 76 76 78 Pulse Rate [ Anterior Bilateral Throughout] Pulse Rate [ Bilateral] Pulse Rate [ From Monitor] Pulse Rate [ Left Dorsalis Pedis] Pulse Rate [ Right Dorsalis Pedis] Respiratory 15 27 H 16 Rate Respiratory Rate [Anterior Bilateral Throughout] Respiratory Rate [Bilateral ] Blood Pressure 146/89 146/89 146/89 O2 Sat by Pulse 97 97 98 Oximetry 01/03/19 01/03/19 01/03/19 02:51 03:00 03:11 Temperature Pulse Rate 82 78 76 Pulse Rate [ Anterior Bilateral Throughout] Pulse Rate [ Bilateral] Pulse Rate [ From Monitor] Pulse Rate [ Left Dorsalis Pedis] Pulse Rate [ Right Dorsalis Pedis] Respiratory 17 31 H 29 H Rate Respiratory Rate [Anterior Bilateral Throughout] Respiratory Rate [Bilateral ] Blood Pressure 146/89 155/89 155/89 O2 Sat by Pulse 96 98 99 Oximetry 01/03/19 01/03/19 01/03/19 03:21 03:31 03:41 Temperature Pulse Rate 80 81 78 Pulse Rate [ Anterior Bilateral Throughout] Pulse Rate [ Bilateral] Pulse Rate [ From Monitor] Pulse Rate [ Left Dorsalis Pedis] Pulse Rate [ Right Dorsalis Pedis] Respiratory 19 18 30 H Rate Respiratory Rate [Anterior Bilateral Throughout] Respiratory Rate [Bilateral ] Blood Pressure 155/89 155/89 155/89 O2 Sat by Pulse 98 96 100 Oximetry 01/03/19 01/03/1919 03:51 04:00 04:11 Temperature 99.3 F Pulse Rate 82 74 82 Pulse Rate [ 74 Anterior Bilateral Throughout] Pulse Rate [ 76 Bilateral] Pulse Rate [ From Monitor] Pulse Rate [ 82 Left Dorsalis Pedis] Pulse Rate [ 82 Right Dorsalis Pedis] Respiratory 18 17 15 Rate Respiratory 28 H Rate [Anterior Bilateral Throughout] Respiratory 20 Rate [Bilateral ] Blood Pressure 155/89 161/88 161/88 O2 Sat by Pulse 97 99 98 Oximetry 01/03/19 01/03/19 01/03/19 04:21 04:31 04:41 Temperature Pulse Rate 79 86 83 Pulse Rate [ Anterior Bilateral Throughout] Pulse Rate [ Bilateral] Pulse Rate [ From Monitor] Pulse Rate [ Left Dorsalis Pedis] Pulse Rate [ Right Dorsalis Pedis] Respiratory 18 12 Rate Respiratory Rate [Anterior Bilateral Throughout] Respiratory Rate [Bilateral ] Blood Pressure 161/88 161/88 161/88 O2 Sat by Pulse 98 86 97 Oximetry 01/03/19 01/03/19 01/03/19 04:51 05:00 05:11 Temperature Pulse Rate 82 80 87 Pulse Rate [ Anterior Bilateral Throughout] Pulse Rate [ Bilateral] Pulse Rate [ From Monitor] Pulse Rate [ Left Dorsalis Pedis] Pulse Rate [ Right Dorsalis Pedis] Respiratory 16 18 16 Rate Respiratory Rate [Anterior Bilateral Throughout] Respiratory Rate [Bilateral ] Blood Pressure 161/88 154/85 154/85 O2 Sat by Pulse 98 97 98 Oximetry 01/03/19 01/03/19 01/03/19 05:20 05:31 05:41 Temperature Pulse Rate 84 80 79 Pulse Rate [ Anterior Bilateral Throughout] Pulse Rate [ Bilateral] Pulse Rate [ From Monitor] Pulse Rate [ Left Dorsalis Pedis] Pulse Rate [ Right Dorsalis Pedis] Respiratory 13 14 17 Rate Respiratory Rate [Anterior Bilateral Throughout] Respiratory Rate [Bilateral ] Blood Pressure 161/88 154/85 154/85 O2 Sat by Pulse 99 98 99 Oximetry 01/03/19 01/03/19 01/03/19 05:51 06:00 06:11 Temperature Pulse Rate 85 85 81 Pulse Rate [ Anterior Bilateral Throughout] Pulse Rate [ Bilateral] Pulse Rate [ From Monitor] Pulse Rate [ Left Dorsalis Pedis] Pulse Rate [ Right Dorsalis Pedis] Respiratory 18 21 17 Rate Respiratory Rate [Anterior Bilateral Throughout] Respiratory Rate [Bilateral ] Blood Pressure 154/85 154/85 154/85 O2 Sat by Pulse 99 98 99 Oximetry 01/03/19 01/03/19 01/03/19 06:20 06:31 06:41 Temperature Pulse Rate 80 81 82 Pulse Rate [ Anterior Bilateral Throughout] Pulse Rate [ Bilateral] Pulse Rate [ From Monitor] Pulse Rate [ Left Dorsalis Pedis] Pulse Rate [ Right Dorsalis Pedis] Respiratory 18 17 20 Rate Respiratory Rate [Anterior Bilateral Throughout] Respiratory Rate [Bilateral ] Blood Pressure 154/85 154/85 154/85 O2 Sat by Pulse 98 96 96 Oximetry 01/03/19 01/03/19 01/03/19 06:51 07:01 07:11 Temperature Pulse Rate 82 82 82 Pulse Rate [ Anterior Bilateral Throughout] Pulse Rate [ Bilateral] Pulse Rate [ From Monitor] Pulse Rate [ Left Dorsalis Pedis] Pulse Rate [ Right Dorsalis Pedis] Respiratory 12 19 24 Rate Respiratory Rate [Anterior Bilateral Throughout] Respiratory Rate [Bilateral ] Blood Pressure 154/85 137/71 137/71 O2 Sat by Pulse 97 98 100 Oximetry 01/03/19 01/03/19 01/03/19 07:21 07:31 07:41 Temperature Pulse Rate 80 79 82 Pulse Rate [ Anterior Bilateral Throughout] Pulse Rate [ Bilateral] Pulse Rate [ From Monitor] Pulse Rate [ Left Dorsalis Pedis] Pulse Rate [ Right Dorsalis Pedis] Respiratory 20 18 14 Rate Respiratory Rate [Anterior Bilateral Throughout] Respiratory Rate [Bilateral ] Blood Pressure 137/71 137/71 137/71 O2 Sat by Pulse 98 97 98 Oximetry 01/03/19 01/03/19 01/03/19 07:51 08:00 08:09 Temperature 97.8 F Pulse Rate 80 82 Pulse Rate [ Anterior Bilateral Throughout] Pulse Rate [ 82 Bilateral] Pulse Rate [ 82 From Monitor] Pulse Rate [ Left Dorsalis Pedis] Pulse Rate [ Right Dorsalis Pedis] Respiratory 15 18 Rate Respiratory Rate [Anterior Bilateral Throughout] Respiratory 30 H Rate [Bilateral ] Blood Pressure 137/71 137/63 O2 Sat by Pulse 98 98 Oximetry 01/03/19 01/03/19 01/03/19 08:11 08:17 08:21 Temperature Pulse Rate 81 84 Pulse Rate [ 79 Anterior Bilateral Throughout] Pulse Rate [ 79 Bilateral] Pulse Rate [ From Monitor] Pulse Rate [ Left Dorsalis Pedis] Pulse Rate [ Right Dorsalis Pedis] Respiratory 16 18 Rate Respiratory 30 H Rate [Anterior Bilateral Throughout] Respiratory 30 H Rate [Bilateral ] Blood Pressure 137/63 137/63 O2 Sat by Pulse 98 99 Oximetry Constitutional: alert, appears uncomfortable, other (elderly looking morbidly obese CM normocephalic and with increased work of breathing at rest) Eyes: non-icteric ENT: oropharynx moist, oropharyngeal exudate pre, other ( FFM with BIPAP) Neck: supple, no lymphadenopathy, no JVD, other (large neck circumference) Effort: mildly labored Ascultation: Bilateral: diminished breath sounds, rhonchi (bases), other (Right chest tube) Percussion: Bilateral: not dull Cardiovascular: regular rate and rhythm, other (No R/M) Gastrointestinal: normoactive bowel sounds, soft, non-tender, non-distended Integumentary: normal Extremities: no cyanosis, pink and warm, pulses normal, no ischemia or petechiae, edema (1+) Neurologic: normal mental status, non-focal exam (grossly), pupils equal and round, CN II-XII normal, motor strength normal and Psychiatric: mood appropriate, affect normal CBC and BMP: 01/03/19 04:28 01/03/19 10:57 ABG, PT/INR, D-dimer: ABG POC ABG pH 7.318 (7.35-7.45) L 01/02/19 11:21 POC ABG pCO2 56.7 (35-45) H 01/02/19 11:21 POC ABG pO2 215 (80-105) H 01/02/19 11:21 POC ABG HCO3 29.1 (22-26 mml/L) 01/02/19 11:21 POC ABG Total CO2 31 (23-27mmol/L) 01/02/19 11:21 POC ABG O2 Sat 100 01/02/19 11:21 PT/INR, D-dimer PT 16.5 Sec. (12.2-14.9) H 12/30/18 18:17 INR 1.25 (0.87-1.13) H 12/30/18 18:17 D-Dimer 815.50 ng/mlDDU (0-234) H 12/28/18 23:58 Abnormal lab findings: Abnormal Labs 12/28/18 12/28/18 12/28/18 23:58 23:58 23:58 WBC RBC 2.24 L Hgb 6.7 L Hct 20.9 L RDW 16.4 H Plt Count 99 L Lymph % (Auto) 10.7 L [place] % (Auto) 7.9 H Lymph # 0.6 L [place] # Seg Neutrophils % 80.7 H PT INR D-Dimer 815.50 H Heparin Anti-Xa Level POC ABG pH POC ABG pCO2 POC ABG pO2 Sodium 148 H Potassium 2.3 L* Chloride 128.4 H Carbon Dioxide 12 L BUN Creatinine 0.4 L Glucose POC Glucose Lactic Acid Calcium 5.0 L* Iron TIBC Total Bilirubin AST ALT < 5 L Lactate Dehydrogenase Total Creatine Kinase 44 L CK-MB (CK-2) CK-MB (CK-2) Rel Index 4.3 H Troponin T C-Reactive Protein NT-Pro-B Natriuret Pep Total Protein 2.3 L Albumin 1.1 L HDL Cholesterol Folate Ur Specific [place] Urine WBC (Auto) Crossmatch 12/28/18 12/29/18 12/29/18 23:58 00:27 01:53 WBC RBC Hgb Hct RDW Plt Count Lymph % (Auto) [place] % (Auto) Lymph # [place] # Seg Neutrophils % PT INR D-Dimer Heparin Anti-Xa Level POC ABG pH 7.169 L POC ABG pCO2 POC ABG pO2 Sodium Potassium Chloride Carbon Dioxide BUN Creatinine Glucose POC Glucose Lactic Acid Calcium Iron TIBC Total Bilirubin AST ALT Lactate Dehydrogenase Total Creatine Kinase CK-MB (CK-2) CK-MB (CK-2) Rel Index Troponin T C-Reactive Protein NT-Pro-B Natriuret Pep 1209 H Total Protein Albumin HDL Cholesterol Folate Ur Specific [place] Urine WBC (Auto) Crossmatch See Detail 12/29/18 12/29/18 12/29/18 03:00 05:02 08:34 WBC RBC Hgb Hct RDW Plt Count Lymph % (Auto) [place] % (Auto) Lymph # [place] # Seg Neutrophils % PT INR D-Dimer Heparin Anti-Xa Level POC ABG pH 7.225 L POC ABG pCO2 57.9 H POC ABG pO2 Sodium Potassium Chloride Carbon Dioxide BUN Creatinine Glucose POC Glucose Lactic Acid Calcium Iron TIBC Total Bilirubin AST ALT Lactate Dehydrogenase Total Creatine Kinase 344 H CK-MB (CK-2) 7.9 H CK-MB (CK-2) Rel Index Troponin T 0.103 H* D C-Reactive Protein NT-Pro-B Natriuret Pep Total Protein Albumin HDL Cholesterol 34 L Folate Ur Specific [place] 1.033 H Urine WBC (Auto) 31.0 H Crossmatch 12/29/18 12/29/18 12/29/18 08:34 08:53 12:51 WBC RBC Hgb Hct RDW Plt Count Lymph % (Auto) [place] % (Auto) Lymph # [place] # Seg Neutrophils % PT INR D-Dimer Heparin Anti-Xa Level POC ABG pH POC ABG pCO2 POC ABG pO2 Sodium Potassium 5.7 H D Chloride Carbon Dioxide BUN 21 H Creatinine Glucose 124 H POC Glucose 119 H Lactic Acid Calcium Iron TIBC Total Bilirubin AST ALT Lactate Dehydrogenase Total Creatine Kinase 837 H CK-MB (CK-2) 10.5 H CK-MB (CK-2) Rel Index Troponin T 0.084 H C-Reactive Protein NT-Pro-B Natriuret Pep Total Protein Albumin HDL Cholesterol Folate Ur Specific [place] Urine WBC (Auto) Crossmatch 12/29/18 12/29/18 12/29/18 12:51 12:51 15:02 WBC RBC Hgb Hct RDW 16.0 H Plt Count Lymph % (Auto) [place] % (Auto) 13.3 H Lymph # [place] # 1.4 H Seg Neutrophils % PT INR D-Dimer Heparin Anti-Xa Level POC ABG pH POC ABG pCO2 POC ABG pO2 Sodium Potassium 5.4 H Chloride Carbon Dioxide 19 L 17 L BUN 21 H 21 H Creatinine Glucose 116 H 115 H POC Glucose Lactic Acid Calcium Iron TIBC Total Bilirubin 1.50 H AST 43 H ALT Lactate Dehydrogenase 405 H Total Creatine Kinase CK-MB (CK-2) CK-MB (CK-2) Rel Index Troponin T C-Reactive Protein NT-Pro-B Natriuret Pep Total Protein 6.2 L D Albumin 3.1 L HDL Cholesterol Folate Ur Specific [place] Urine WBC (Auto) Crossmatch 12/29/18 12/29/18 12/29/18 15:03 16:46 16:46 WBC RBC Hgb Hct RDW Plt Count Lymph % (Auto) [place] % (Auto) Lymph # [place] # Seg Neutrophils % PT INR D-Dimer Heparin Anti-Xa Level POC ABG pH POC ABG pCO2 POC ABG pO2 Sodium Potassium Chloride Carbon Dioxide BUN Creatinine Glucose POC Glucose 121 H Lactic Acid 2.70 H* Calcium Iron TIBC Total Bilirubin AST ALT Lactate Dehydrogenase Total Creatine Kinase CK-MB (CK-2) CK-MB (CK-2) Rel Index Troponin T C-Reactive Protein 2.80 H NT-Pro-B Natriuret Pep Total Protein Albumin HDL Cholesterol Folate Ur Specific [place] Urine WBC (Auto) Crossmatch 12/29/18 12/29/18 12/29/18 16:50 17:37 19:37 WBC RBC Hgb Hct RDW Plt Count Lymph % (Auto) [place] % (Auto) Lymph # [place] # Seg Neutrophils % PT INR D-Dimer Heparin Anti-Xa Level POC ABG pH POC ABG pCO2 POC ABG pO2 248 H Sodium Potassium Chloride Carbon Dioxide 21 L BUN 21 H Creatinine Glucose 123 H POC Glucose 113 H Lactic Acid Calcium Iron TIBC Total Bilirubin AST ALT Lactate Dehydrogenase Total Creatine Kinase CK-MB (CK-2) CK-MB (CK-2) Rel Index Troponin T C-Reactive Protein NT-Pro-B Natriuret Pep Total Protein Albumin HDL Cholesterol Folate Ur Specific [place] Urine WBC (Auto) Crossmatch 12/29/18 12/29/18 12/30/18 20:10 21:36 04:43 WBC RBC Hgb Hct RDW Plt Count Lymph % (Auto) [place] % (Auto) Lymph # [place] # Seg Neutrophils % PT INR D-Dimer Heparin Anti-Xa Level POC ABG pH 7.327 L POC ABG pCO2 POC ABG pO2 79 L Sodium Potassium Chloride Carbon Dioxide BUN Creatinine Glucose POC Glucose Lactic Acid 2.70 H* 2.80 H* Calcium Iron TIBC Total Bilirubin AST ALT Lactate Dehydrogenase Total Creatine Kinase CK-MB (CK-2) CK-MB (CK-2) Rel Index Troponin T C-Reactive Protein NT-Pro-B Natriuret Pep Total Protein Albumin HDL Cholesterol Folate Ur Specific [place] Urine WBC (Auto) Crossmatch 12/30/18 12/30/18 12/30/18 11:42 11:42 13:43 WBC RBC Hgb Hct RDW 16.4 H Plt Count 125 L Lymph % (Auto) [place] % (Auto) Lymph # [place] # Seg Neutrophils % PT INR D-Dimer Heparin Anti-Xa Level POC ABG pH 7.225 L POC ABG pCO2 54.7 H POC ABG pO2 Sodium Potassium Chloride 108.8 H Carbon Dioxide BUN Creatinine Glucose 105 H POC Glucose Lactic Acid Calcium 8.2 L Iron TIBC Total Bilirubin AST ALT Lactate Dehydrogenase Total Creatine Kinase CK-MB (CK-2) CK-MB (CK-2) Rel Index Troponin T C-Reactive Protein NT-Pro-B Natriuret Pep Total Protein Albumin HDL Cholesterol Folate Ur Specific [place] Urine WBC (Auto) Crossmatch 12/30/18 12/30/18 12/30/18 13:53 18:17 18:17 WBC RBC Hgb Hct RDW Plt Count 114 L Lymph % (Auto) [place] % (Auto) Lymph # [place] # Seg Neutrophils % PT 16.5 H INR 1.25 H D-Dimer Heparin Anti-Xa Level POC ABG pH POC ABG pCO2 POC ABG pO2 Sodium Potassium Chloride Carbon Dioxide BUN Creatinine Glucose POC Glucose Lactic Acid Calcium Iron TIBC Total Bilirubin AST ALT Lactate Dehydrogenase Total Creatine Kinase CK-MB (CK-2) CK-MB (CK-2) Rel Index Troponin T 0.060 H D C-Reactive Protein NT-Pro-B Natriuret Pep Total Protein Albumin HDL Cholesterol Folate Ur Specific [place] Urine WBC (Auto) Crossmatch 12/31/18 12/31/18 12/31/18 00:31 04:39 05:30 WBC RBC Hgb 10.9 L Hct 32.4 L RDW 16.1 H Plt Count 97 L Lymph % (Auto) [place] % (Auto) Lymph # [place] # Seg Neutrophils % PT INR D-Dimer Heparin Anti-Xa Level 0.12 L POC ABG pH 7.337 L POC ABG pCO2 POC ABG pO2 Sodium Potassium Chloride Carbon Dioxide BUN Creatinine Glucose POC Glucose Lactic Acid Calcium Iron TIBC Total Bilirubin AST ALT Lactate Dehydrogenase Total Creatine Kinase CK-MB (CK-2) CK-MB (CK-2) Rel Index Troponin T C-Reactive Protein NT-Pro-B Natriuret Pep Total Protein Albumin HDL Cholesterol Folate Ur Specific [place] Urine WBC (Auto) Crossmatch 12/31/18 12/31/18 12/31/18 05:30 16:27 18:40 WBC RBC Hgb Hct RDW Plt Count Lymph % (Auto) [place] % (Auto) Lymph # [place] # Seg Neutrophils % PT INR D-Dimer Heparin Anti-Xa Level POC ABG pH 7.246 L POC ABG pCO2 52.6 H POC ABG pO2 Sodium Potassium Chloride 110.5 H Carbon Dioxide BUN Creatinine Glucose 107 H POC Glucose 109 H Lactic Acid Calcium 8.2 L Iron TIBC Total Bilirubin 1.30 H AST ALT Lactate Dehydrogenase Total Creatine Kinase CK-MB (CK-2) CK-MB (CK-2) Rel Index Troponin T C-Reactive Protein NT-Pro-B Natriuret Pep Total Protein 5.1 L Albumin 2.3 L HDL Cholesterol Folate Ur Specific [place] Urine WBC (Auto) Crossmatch 12/31/18 01/01/19 01/01/19 21:37 03:05 04:25 WBC RBC Hgb Hct RDW Plt Count Lymph % (Auto) [place] % (Auto) Lymph # [place] # Seg Neutrophils % PT INR D-Dimer Heparin Anti-Xa Level POC ABG pH 7.278 L POC ABG pCO2 50.6 H POC ABG pO2 111 H Sodium Potassium Chloride Carbon Dioxide BUN Creatinine Glucose POC Glucose 108 H 147 H Lactic Acid Calcium Iron TIBC Total Bilirubin AST ALT Lactate Dehydrogenase Total Creatine Kinase CK-MB (CK-2) CK-MB (CK-2) Rel Index Troponin T C-Reactive Protein NT-Pro-B Natriuret Pep Total Protein Albumin HDL Cholesterol Folate Ur Specific [place] Urine WBC (Auto) Crossmatch 01/01/19 01/01/19 01/01/19 04:42 04:42 06:32 WBC 3.9 L RBC 3.54 L Hgb 10.7 L Hct 31.6 L RDW 16.3 H Plt Count 83 L Lymph % (Auto) [place] % (Auto) Lymph # [place] # Seg Neutrophils % PT INR D-Dimer Heparin Anti-Xa Level POC ABG pH POC ABG pCO2 POC ABG pO2 Sodium Potassium Chloride 109.8 H Carbon Dioxide BUN Creatinine Glucose 134 H POC Glucose 143 H Lactic Acid Calcium 8.1 L Iron TIBC Total Bilirubin AST ALT Lactate Dehydrogenase Total Creatine Kinase CK-MB (CK-2) CK-MB (CK-2) Rel Index Troponin T C-Reactive Protein NT-Pro-B Natriuret Pep Total Protein 4.9 L Albumin 2.3 L HDL Cholesterol Folate Ur Specific [place] Urine WBC (Auto) Crossmatch 01/01/19 01/01/19 01/01/19 07:33 11:37 13:55 WBC RBC Hgb Hct RDW Plt Count Lymph % (Auto) [place] % (Auto) Lymph # [place] # Seg Neutrophils % PT INR D-Dimer Heparin Anti-Xa Level POC ABG pH 7.242 L POC ABG pCO2 55.3 H POC ABG pO2 Sodium Potassium Chloride Carbon Dioxide BUN Creatinine Glucose POC Glucose 137 H 133 H Lactic Acid Calcium Iron TIBC Total Bilirubin AST ALT Lactate Dehydrogenase Total Creatine Kinase CK-MB (CK-2) CK-MB (CK-2) Rel Index Troponin T C-Reactive Protein NT-Pro-B Natriuret Pep Total Protein Albumin HDL Cholesterol Folate Ur Specific [place] Urine WBC (Auto) Crossmatch 01/01/19 01/01/19 01/01/19 15:44 16:51 21:35 WBC RBC Hgb Hct RDW Plt Count Lymph % (Auto) [place] % (Auto) Lymph # [place] # Seg Neutrophils % PT INR D-Dimer Heparin Anti-Xa Level POC ABG pH 7.298 L POC ABG pCO2 50.6 H POC ABG pO2 Sodium Potassium Chloride Carbon Dioxide BUN Creatinine Glucose POC Glucose 139 H 106 H Lactic Acid Calcium Iron TIBC Total Bilirubin AST ALT Lactate Dehydrogenase Total Creatine Kinase CK-MB (CK-2) CK-MB (CK-2) Rel Index Troponin T C-Reactive Protein NT-Pro-B Natriuret Pep Total Protein Albumin HDL Cholesterol Folate Ur Specific [place] Urine WBC (Auto) Crossmatch 01/02/19 01/02/19 01/02/19 03:13 04:40 05:09 WBC 3.9 L RBC Hgb Hct RDW 16.1 H Plt Count 94 L Lymph % (Auto) 7.5 L [place] % (Auto) 14.2 H Lymph # 0.3 L [place] # Seg Neutrophils % 76.5 H PT INR D-Dimer Heparin Anti-Xa Level POC ABG pH 7.206 L POC ABG pCO2 65.8 H POC ABG pO2 62 L Sodium Potassium Chloride Carbon Dioxide BUN Creatinine Glucose POC Glucose 124 H Lactic Acid Calcium Iron TIBC Total Bilirubin AST ALT Lactate Dehydrogenase Total Creatine Kinase CK-MB (CK-2) CK-MB (CK-2) Rel Index Troponin T C-Reactive Protein NT-Pro-B Natriuret Pep Total Protein Albumin HDL Cholesterol Folate Ur Specific [place] Urine WBC (Auto) Crossmatch 01/02/19 01/02/19 01/02/19 05:09 05:09 05:32 WBC RBC Hgb Hct RDW Plt Count Lymph % (Auto) [place] % (Auto) Lymph # [place] # Seg Neutrophils % PT INR D-Dimer Heparin Anti-Xa Level POC ABG pH POC ABG pCO2 POC ABG pO2 Sodium Potassium Chloride 107.4 H Carbon Dioxide BUN Creatinine Glucose 133 H POC Glucose 130 H Lactic Acid Calcium 8.3 L Iron 34 L TIBC 231 L Total Bilirubin AST ALT Lactate Dehydrogenase Total Creatine Kinase CK-MB (CK-2) CK-MB (CK-2) Rel Index Troponin T C-Reactive Protein NT-Pro-B Natriuret Pep Total Protein Albumin HDL Cholesterol Folate 6.01 L Ur Specific [place] Urine WBC (Auto) Crossmatch 01/02/19 01/02/19 01/02/19 10:25 11:21 11:42 WBC RBC Hgb Hct RDW Plt Count Lymph % (Auto) [place] % (Auto) Lymph # [place] # Seg Neutrophils % PT INR D-Dimer Heparin Anti-Xa Level POC ABG pH 7.318 L POC ABG pCO2 56.7 H POC ABG pO2 215 H Sodium Potassium Chloride Carbon Dioxide BUN Creatinine Glucose POC Glucose 108 H 152 H Lactic Acid Calcium Iron TIBC Total Bilirubin AST ALT Lactate Dehydrogenase Total Creatine Kinase CK-MB (CK-2) CK-MB (CK-2) Rel Index Troponin T C-Reactive Protein NT-Pro-B Natriuret Pep Total Protein Albumin HDL Cholesterol Folate Ur Specific [place] Urine WBC (Auto) Crossmatch 01/02/19 01/03/19 17:37 04:28 WBC RBC Hgb 11.6 L Hct RDW Plt Count 105 L Lymph % (Auto) [place] % (Auto) Lymph # [place] # Seg Neutrophils % PT INR D-Dimer Heparin Anti-Xa Level POC ABG pH POC ABG pCO2 POC ABG pO2 Sodium Potassium Chloride Carbon Dioxide BUN Creatinine Glucose POC Glucose 107 H Lactic Acid Calcium Iron TIBC Total Bilirubin AST ALT Lactate Dehydrogenase Total Creatine Kinase CK-MB (CK-2) CK-MB (CK-2) Rel Index Troponin T C-Reactive Protein NT-Pro-B Natriuret Pep Total Protein Albumin HDL Cholesterol Folate Ur Specific [place] Urine WBC (Auto) Crossmatch Chest x-ray: image reviewed (Post cardiac changes, right chest tube, bilateral alveolar infiltrates) Allied health notes reviewed: nursing
[2019-01-03] MEDS: LASIX IV SCH (09:05)
[2019-01-03] MEDS: PEPCID IV SCH ×2 (09:05→21:19)
[2019-01-03] MEDS: KEPPRA 500 MG in NACL 0.9% 100 ML IV SCH (09:09)
--- NOTE | 2019-01-03 09:34 | Progress Note ---
Assessment and Plan Assessment and plan: Patient is a 73-year-old male, with mobid obesity, HTN, CAD, s/p VA, Seizure. He was admitted after spouse found him on the floor with agonal breathing 10 mins after he went to bed. EMS was called and he was transported here to the ED in respiratory distress and was intubated in the ED. CXR; right sided pleural effusion CT: no PE * Critical care, ID and cardiology consulted * Per family patient has been having 2 weeks increasing shortness of breath and also chronic bouts of hypotension * Large right sided pleural effusion noted on cxr requiring emergent chest tube placement * Concern if patient had seizure that led to being found on the floor so Neurology was consult * Appeared also septic on admission ?aspiration Acute Hypoxic Respiratory failure- s/p extubated 01/01. 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 status post CABG Acute metabolic encephalopathy Severe Protein calorie malnutrition Hyponatremia Hypocalcemia History of CVA 2 years ago Plan Extubated, on BIPAP On heparin drip, Continue current ICU care Continue chest tube management VAP and aspiration precautions Continue abx, Follow cultures, and fluid analysis from Chest tube insertion ID following Family advised of findings Continue AED DVT/GI prophy The high probability of a clinically significant, sudden or life threatening deterioration of the [NEURO, PULMONARY] system(s) required my full and direct attention, intervention and personal management. The aggregate critical care time was [31] minutes. This time is in addition to time spent performing reported procedures but includes the following: [X] Data Review and interpretation [X] Patient assessment and monitoring of vital signs [X] Documentation [X] Medication orders and management History Interval history: Patient is a 73-year-old male, with mobid obesity, HTN, CAD, s/p VA, Seizure, admitted after spouse found him on the floor with agonal breathing 10 mins after he went to bed. EMS was called and transported to the hospital in full respiratory distress and was intubated in the ED. Patient extubated 01/01, Now on BIPAP No more fever x 4 days Hospitalist Physical - Physical exam Narrative exam: Gen: Not in acute distress, morbidly obese, BIPAP mask on HEENT: Normocephalic, atraumatic Neck: supple, no JVD Heart: S1 and S2 reg, no murmurs, rubs or gallop Lungs: Clear, no crackles, right chest tube Abd: soft, non tender, non distended, normal BS Ext: No edema, no clubbing, no cyanosis, Neuro: Extubated, lethargic - Constitutional Vitals: Temp Pulse Resp BP Pulse Ox 97.8 F 84 18 137/63 99 01/03/19 08:00 01/03/19 08:21 01/03/19 08:21 01/03/19 08:21 01/03/19 08:21 General appearance: Present: no acute distress, other (on BiPAP) Results - Labs CBC & Chem 7: 01/03/19 04:28 01/02/19 05:09 Labs: Laboratory Last Values WBC 3.9 K/mm3 (4.5-11.0) L 01/02/19 05:09 RBC 4.09 M/mm3 (3.65-5.03) 01/02/19 05:09 Hgb 11.6 gm/dl (11.8-15.2) L 01/03/19 04:28 Hct 36.0 % (35.5-45.6) 01/03/19 04:28 MCV 90 fl (84-94) 01/02/19 05:09 MCH 30 pg (28-32) 01/02/19 05:09 MCHC 33 % (32-34) 01/02/19 05:09 RDW 16.1 % (13.2-15.2) H 01/02/19 05:09 Plt Count 105 K/mm3 (140-440) L 01/03/19 04:28 Lymph % (Auto) 7.5 % (13.4-35.0) L 01/02/19 05:09 [place] % (Auto) 14.2 % (0.0-7.3) H 01/02/19 05:09 Eos % (Auto) 1.3 % (0.0-4.3) 01/02/19 05:09 Baso % (Auto) 0.5 % (0.0-1.8) 01/02/19 05:09 Lymph # 0.3 K/mm3 (1.2-5.4) L 01/02/19 05:09 [place] # 0.6 K/mm3 (0.0-0.8) 01/02/19 05:09 Eos # 0.1 K/mm3 (0.0-0.4) 01/02/19 05:09 Baso # 0.0 K/mm3 (0.0-0.1) 01/02/19 05:09 Seg Neutrophils % 76.5 % (40.0-70.0) H 01/02/19 05:09 Seg Neutrophils # 3.0 K/mm3 (1.8-7.7) 01/02/19 05:09 PT 16.5 Sec. (12.2-14.9) H 12/30/18 18:17 INR 1.25 (0.87-1.13) H 12/30/18 18:17 APTT 33.1 Sec. (24.2-36.6) 12/30/18 18:17 D-Dimer 815.50 ng/mlDDU (0-234) H 12/28/18 23:58 Heparin Anti-Xa Level 0.70 U.I./ml (0.3-0.7) 01/02/19 05:09 POC ABG pH 7.318 (7.35-7.45) L 01/02/19 11:21 POC ABG pCO2 56.7 (35-45) H 01/02/19 11:21 POC ABG pO2 215 (80-105) H 01/02/19 11:21 POC ABG HCO3 29.1 (22-26 mml/L) 01/02/19 11:21 POC ABG Total CO2 31 (23-27mmol/L) 01/02/19 11:21 POC ABG O2 Sat 100 01/02/19 11:21 POC ABG Base Excess 3 ((-2) - (+3)mmol/L) 01/02/19 11:21 FiO2 60 % 01/02/19 11:21 Sodium 144 mmol/L (137-145) 01/02/19 05:09 Potassium 4.1 mmol/L (3.6-5.0) 01/02/19 05:09 Chloride 107.4 mmol/L (98-107) H 01/02/19 05:09 Carbon Dioxide 26 mmol/L (22-30) 01/02/19 05:09 Anion Gap 15 mmol/L 01/02/19 05:09 BUN 15 mg/dL (9-20) 01/02/19 05:09 Creatinine 1.0 mg/dL (0.8-1.5) 01/02/19 05:09 Estimated GFR > 60 ml/min 01/02/19 05:09 BUN/Creatinine Ratio 15 % 01/02/19 05:09 Glucose 133 mg/dL (75-100) H 01/02/19 05:09 POC Glucose 99 (70-105) 01/03/19 05:42 Lactic Acid 1.50 mmol/L (0.7-2.0) 12/30/18 11:42 Calcium 8.3 mg/dL (8.4-10.2) L 01/02/19 05:09 Magnesium 2.10 mg/dL (1.7-2.3) 12/29/18 01:51 Iron 34 ug/dL (49-181) L 01/02/19 05:09 TIBC 231 mcg/dL (250-450) L 01/02/19 05:09 Ferritin 163.3 ng/mL (13.0-400.0) 01/02/19 05:09 Total Bilirubin 0.60 mg/dL (0.1-1.2) 01/01/19 04:42 AST 23 units/L (5-40) 01/01/19 04:42 ALT 10 units/L (7-56) 01/01/19 04:42 Alkaline Phosphatase 53 units/L (35-129) 01/01/19 04:42 Lactate Dehydrogenase 405 units/L (91-180) H 12/29/18 15:02 Total Creatine Kinase 837 units/L (55-170) H 12/29/18 12:51 CK-MB (CK-2) 10.5 ng/mL (0.0-4.0) H 12/29/18 12:51 CK-MB (CK-2) Rel Index 1.2 (0-4) 12/29/18 12:51 Troponin T 0.060 ng/mL (0.00-0.029) H D 12/30/18 13:53 C-Reactive Protein 2.80 mg/dL (0.00-1.30) H 12/29/18 16:46 NT-Pro-B Natriuret Pep 1209 pg/mL (0-900) H 12/28/18 23:58 Total Protein 4.9 g/dL (6.3-8.2) L 01/01/19 04:42 Albumin 2.3 g/dL (3.9-5) L 01/01/19 04:42 Albumin/Globulin Ratio 0.9 % 01/01/19 04:42 Triglycerides 113 mg/dL (2-149) 12/29/18 08:34 Cholesterol 120 mg/dL (50-199) 12/29/18 08:34 LDL Cholesterol Direct 82 mg/dL (50-130) 12/29/18 08:34 HDL Cholesterol 34 mg/dL (40-59) L 12/29/18 08:34 Cholesterol/HDL Ratio 3.52 % 12/29/18 08:34 Vitamin B12 365.3 pg/mL (211-911) 01/02/19 05:09 Folate 6.01 ng/mL (7.3-26.0) L 01/02/19 05:09 Urine Color [place] (Yellow) 12/29/18 03:00 Urine Turbidity Cloudy (Clear) 12/29/18 03:00 Urine pH 5.0 (5.0-7.0) 12/29/18 03:00 Ur Specific [place] 1.033 (1.003-1.030) H 12/29/18 03:00 Urine Protein >500 mg/dL (Negative) 12/29/18 03:00 Urine Glucose (UA) 150 mg/dL (Negative) 12/29/18 03:00 Urine Ketones Neg mg/dL (Negative) 12/29/18 03:00 Urine Blood Mod (Negative) 12/29/18 03:00 Urine Nitrite Neg (Negative) 12/29/18 03:00 Urine Bilirubin Neg (Negative) 12/29/18 03:00 Urine Urobilinogen < 2.0 mg/dL (<2.0) 12/29/18 03:00 Ur Leukocyte Esterase Neg (Negative) 12/29/18 03:00 Urine WBC (Auto) 31.0 /HPF (0.0-6.0) H 12/29/18 03:00 Urine RBC (Auto) 27.0 /HPF (0.0-6.0) 12/29/18 03:00 U Epithel Cells (Auto) 4.0 /HPF (0-13.0) 12/29/18 03:00 Urine Bacteria (Auto) 4+ /HPF (Negative) 12/29/18 03:00 Urine Mucus 3+ /HPF 12/29/18 03:00 Urine Opiates Screen Presumptive negative 12/29/18 03:00 Urine Methadone Screen Presumptive negative 12/29/18 03:00 Ur Barbiturates Screen Presumptive negative 12/29/18 03:00 Ur Phencyclidine Scrn Presumptive negative 12/29/18 03:00 Ur Amphetamines Screen Presumptive negative 12/29/18 03:00 U Benzodiazepines Scrn Presumptive negative 12/29/18 03:00 Urine Cocaine Screen Presumptive negative 12/29/18 03:00 U Marijuana (THC) Screen Presumptive negative 12/29/18 03:00 Drugs of Abuse Note Disclamer 12/29/18 03:00 Urine Legionella Ag Not detected (Not Detected) 12/31/18 05:30 Blood Type O POSITIVE 12/29/18 01:53 Antibody Screen Negative 12/29/18 01:53 Crossmatch See Detail 12/29/18 01:53 Active Medications - Current Medications Current Medications: Generic Name Dose Route Start Last Admin Trade Name Freq PRN Reason Stop Dose Admin Acetaminophen 650 mg 12/29/18 04:49 12/30/18 08:33 Tylenol ID 650 mg Q4H PRN Administration Fever >101 Albuterol/Ipratropium 1 ampul 01/01/19 14:00 01/03/19 08:08 Duoneb *Not For Prn Use* IH 1 ampul Q6HRT WENDY Administration Lipase/Protease/Amylase 1 each 12/31/18 15:[address] 10,500 Unit FEEDTUBE PRN PRN For Clogged Feeding Tube Dextrose 50 ml 12/29/18 04:47 D50w (25gm) Syringe IV PRN PRN Hypoglycemia Famotidine 20 mg 01/02/19 10:00 01/03/19 09:05 Pepcid IV 20 mg BID WENDY Administration Fentanyl 25 mcg 12/30/18 14:26 01/02/19 00:23 Sublimaze IV 25 mcg Q2H PRN Administration Pain , Severe (7-10) Fondaparinux 7.5 mg 01/01/19 22:00 01/02/19 21:54 Arixtra SUB-Q 7.5 mg Q24H WENDY Administration Fondaparinux 2.5 mg 01/01/19 22:00 01/02/19 21:54 Arixtra SUB-Q 2.5 mg Q24H WENDY Administration Furosemide 20 mg 01/01/19 14:00 01/03/19 09:05 Lasix IV 20 mg QDAY WENDY Administration Hydralazine HCl 10 mg 01/01/19 13:23 Apresoline IV Q4HR PRN SBP >/=170 Norepinephrine 4 mg in 250 mls @ 37.5 mls/hr 12/29/18 20:00 01/01/19 07:00 Levophed Drip 4 Mg/Ns 250 Ml IV Infused TITR WENDY Titration Protocol 10 MCG/MIN Metronidazole 500 mg in 100 mls @ 100 mls/hr 12/30/18 14:00 01/03/19 05:17 Flagyl 500 Mg/100 Ml IV 01/08/19 13:59 100 mls/hr Q8HR WENDY Administration Protocol Cefepime HCl 2 gm in 100 mls @ 200 mls/hr 12/31/18 14:00 01/03/19 05:17 Maxipime/Ns 2 Gm/100 Ml IV 01/08/19 13:59 200 mls/hr Q8HR WENDY Administration Protocol Levetiracetam 500 mg/ Sodium 105 mls @ 420 mls/hr 01/02/19 22:00 01/03/19 09:09 Chloride IV 420 mls/hr Q12HR WENDY Administration Insulin Human Regular 0 units 12/29/18 05:00 01/03/19 02:00 Humulin R SUB-Q Not Given Q4H [facility] Protocol Ondansetron HCl 4 mg 12/29/18 04:49 Zofran IV Q8H PRN Nausea And Vomiting Simple Syrup 15 ml 12/31/18 15:06 Simple Syrup FEEDTUBE PRN PRN Hypoglycemia Simple Syrup 30 ml 12/31/18 15:06 Simple Syrup FEEDTUBE PRN PRN Hypoglycemia Sodium Bicarbonate 325 mg 12/31/18 15:06 Sodium Bicarbonate FEEDTUBE PRN PRN For Clogged Feeding Tube Nutrition/Malnutrition Assess - Dietary Evaluation Nutrition/Malnutrition Findings: Nutrition Notes Start: 12/31/18 14:59 Freq: Status: Active Protocol: Document 01/02/19 10:58 SA (Rec: 01/02/19 11:06 [id number]) Co-Sign 01/02/19 10:58 LP Nutrition Notes Initial or Follow up Reassessment Current Diagnosis Coronary Artery Disease, Diabetes,Hypertension, Respiratory Failure Other Pertinent Diagnosis (R) lung effusion Current Diet TF - Vital High Protein @ 75ml /hr Labs/Tests Glu: 133 POC: 130 Ca: 8.3 Iron: 34 Pertinent Medications Levophed gtt, D50w, Lasix, Humulin Height 5 ft 9 in Weight 145 kg [place] Body Weight (kg) 72.72 BMI 47.2 Weight Status Morbidly Obese Subjective/Other Information Per patient nurse, pt extubated yesterday and now currently on continuous bi-pap . Nurse states TF stopped and holding until further notice. Percent of energy/protein needs met: 0%/0% Burn Absent Trauma Absent #1 Nutrition Diagnosis Inadequate oral intake Diagnosis Progress(for reassessment Continues documentation) Is patient on ventilator? No Is Patient Ambulatory and/or Out of Bed No REE-([facility]-confined to bed) [phone] Additional Notes Pro needs 2.5g/kg IBW: 182g/ day Fluid needs 1ml/kcal Nutrition Intervention Change Diet Order: Advancement of diet or Restart TF Nutrition Support: Vital High Protein at 75ml/hr with 50ml water flush q4h. Kcal 1,800 Protein (gm) 158 Carbohydrates (gm) 202 Fat (gm) 42 Fluid (mL) 1,505 Fiber (gm) 0 Goal #1 Advancement of diet or TF restart Anticipated Discharge Needs: Unable to identify at this time Follow-Up By: 01/04/19 Additional Comments F/U: diet advancement - Attestation Statement I have reviewed and agreed w/ Malnutrition eval & tx plan: Yes
--- NOTE | 2019-01-03 10:20 | Progress Note ---
Assessment and Plan Acute respiratory failure Extubated to BiPAP Per pulmonary Suspected Sepsis with sepsis associated hypotension ID following Weaned off vasopressors. CAD s/p CABG in 1999 NSVT 6 beat run noted on telemetry this AM. Will initiate low dose lopressor and titrate up to home dosage as BPs permit. Monitory lytes. Pleural effusion Chest tube in place Echo done 12/29/2018: EF 45-50% NSTEMI Type II Echo done 12/29/2018: EF 45-50% History of CVA History of left-sided carotid endarterectomy History of seizure Per family with previous history of seizures. Neurology following. 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 Can consider ischemic evaluation once medically stabilized. The patient has been seen in conjunction with Dr. Le who agrees with the assessment and plan of care. Subjective Date of service: 01/03/19 Principal diagnosis: Acute hypoxemic hypercapnic Resp failure on MVS; Zack. ple ural effusions Interval history: pt resting in bed, on BiPAP, lethargic. no family at bedside. tele reviewed - 6 beat NSVT noted this AM. Objective Last Vital Signs Temp 97.8 F 01/03/19 08:00 Pulse 84 01/03/19 08:21 Resp 18 01/03/19 08:21 BP 137/63 01/03/19 08:21 Pulse Ox 99 01/03/19 08:21 - Physical Examination General: Other (BiPAP) HEENT: Positive: PERRL Neck: Positive: neck supple, trachea midline Cardiac: Positive: Reg Rate and Rhythm, S1/S2 Lungs: Positive: Decreased Breath Sounds Neuro: Positive: Grossly Intact Abdomen: Positive: Unremarkable Skin: Negative: Rash Extremities: Absent: edema - Labs and Meds CBC 01/03/19 Range/Units 04:28 Hgb 11.6 L (11.8-15.2) gm/dl Hct 36.0 (35.5-45.6) % Plt Count 105 L (140-440) K/mm3 - Imaging and Cardiology EKG: report reviewed, image reviewed Echo: report reviewed (12/29/2018: EF 45-50%) AV and intraventricular conduction: 1 AV block, intraventricular conducti Repolarization changes or abnormalities: nonspecific abnormality, ST segment, and/or T wave - Allied health notes Allied health notes reviewed: nursing
[2019-01-03 11:37] LABS: BUN/Creatinine Ratio 19; Blood Urea Nitrogen 17 mg/dL (9-20); Calcium 8.6 mg/dL (8.4-10.2); Hemolysis Index 7
--- NOTE | 2019-01-03 13:47 | Progress Note ---
Subjective Date of service: 01/03/19 Principal diagnosis: Acute hypoxemic hypercapnic Resp failure on MVS; Zack. pleural effusions Interval history: discussed with cardiology on BIPAP no further seizures seizure control is good Objective - Vital Sign Vital Signs - 12hr 01/03/19 01/03/19 01/03/19 01:51 02:00 02:11 Temperature Pulse Rate 84 84 73 Pulse Rate [ Anterior Bilateral Throughout] Pulse Rate [ Bilateral] Pulse Rate [ From Monitor] Pulse Rate [ Left Dorsalis Pedis] Pulse Rate [ Right Dorsalis Pedis] Respiratory 27 H 20 29 H Rate Respiratory Rate [Anterior Bilateral Throughout] Respiratory Rate [Bilateral ] Blood Pressure 154/86 146/89 146/89 O2 Sat by Pulse 96 94 97 Oximetry 01/03/19 01/03/19 01/03/19 02:21 02:31 02:41 Temperature Pulse Rate 76 76 78 Pulse Rate [ Anterior Bilateral Throughout] Pulse Rate [ Bilateral] Pulse Rate [ From Monitor] Pulse Rate [ Left Dorsalis Pedis] Pulse Rate [ Right Dorsalis Pedis] Respiratory 15 27 H 16 Rate Respiratory Rate [Anterior Bilateral Throughout] Respiratory Rate [Bilateral ] Blood Pressure 146/89 146/89 146/89 O2 Sat by Pulse 97 97 98 Oximetry 01/03/19 01/03/19 01/03/19 02:51 03:00 03:11 Temperature Pulse Rate 82 78 76 Pulse Rate [ Anterior Bilateral Throughout] Pulse Rate [ Bilateral] Pulse Rate [ From Monitor] Pulse Rate [ Left Dorsalis Pedis] Pulse Rate [ Right Dorsalis Pedis] Respiratory 17 31 H 29 H Rate Respiratory Rate [Anterior Bilateral Throughout] Respiratory Rate [Bilateral ] Blood Pressure 146/89 155/89 155/89 O2 Sat by Pulse 96 98 99 Oximetry 01/03/19 01/03/19 01/03/19 03:21 03:31 03:41 Temperature Pulse Rate 80 81 78 Pulse Rate [ Anterior Bilateral Throughout] Pulse Rate [ Bilateral] Pulse Rate [ From Monitor] Pulse Rate [ Left Dorsalis Pedis] Pulse Rate [ Right Dorsalis Pedis] Respiratory 19 18 30 H Rate Respiratory Rate [Anterior Bilateral Throughout] Respiratory Rate [Bilateral ] Blood Pressure 155/89 155/89 155/89 O2 Sat by Pulse 98 96 100 Oximetry 01/03/19 01/03/19 01/03/19 03:51 04:00 04:11 Temperature 99.3 F Pulse Rate 82 74 82 Pulse Rate [ 74 Anterior Bilateral Throughout] Pulse Rate [ 76 Bilateral] Pulse Rate [ From Monitor] Pulse Rate [ 82 Left Dorsalis Pedis] Pulse Rate [ 82 Right Dorsalis Pedis] Respiratory 18 17 15 Rate Respiratory 28 H Rate [Anterior Bilateral Throughout] Respiratory 20 Rate [Bilateral ] Blood Pressure 155/89 161/88 161/88 O2 Sat by Pulse 97 99 98 Oximetry 01/03/19 01/03/19 01/03/19 04:21 04:31 04:41 Temperature Pulse Rate 79 86 83 Pulse Rate [ Anterior Bilateral Throughout] Pulse Rate [ Bilateral] Pulse Rate [ From Monitor] Pulse Rate [ Left Dorsalis Pedis] Pulse Rate [ Right Dorsalis Pedis] Respiratory 18 12 Rate Respiratory Rate [Anterior Bilateral Throughout] Respiratory Rate [Bilateral ] Blood Pressure 161/88 161/88 161/88 O2 Sat by Pulse 98 86 97 Oximetry 01/03/19 01/03/19 01/03/19 04:51 05:00 05:11 Temperature Pulse Rate 82 80 87 Pulse Rate [ Anterior Bilateral Throughout] Pulse Rate [ Bilateral] Pulse Rate [ From Monitor] Pulse Rate [ Left Dorsalis Pedis] Pulse Rate [ Right Dorsalis Pedis] Respiratory 16 18 16 Rate Respiratory Rate [Anterior Bilateral Throughout] Respiratory Rate [Bilateral ] Blood Pressure 161/88 154/85 154/85 O2 Sat by Pulse 98 97 98 Oximetry 01/03/19 01/03/19 01/03/19 05:20 05:31 05:41 Temperature Pulse Rate 84 80 79 Pulse Rate [ Anterior Bilateral Throughout] Pulse Rate [ Bilateral] Pulse Rate [ From Monitor] Pulse Rate [ Left Dorsalis Pedis] Pulse Rate [ Right Dorsalis Pedis] Respiratory 13 14 17 Rate Respiratory Rate [Anterior Bilateral Throughout] Respiratory Rate [Bilateral ] Blood Pressure 161/88 154/85 154/85 O2 Sat by Pulse 99 98 99 Oximetry 01/03/19 01/03/19 01/03/19 05:51 06:00 06:11 Temperature Pulse Rate 85 85 81 Pulse Rate [ Anterior Bilateral Throughout] Pulse Rate [ Bilateral] Pulse Rate [ From Monitor] Pulse Rate [ Left Dorsalis Pedis] Pulse Rate [ Right Dorsalis Pedis] Respiratory 18 21 17 Rate Respiratory Rate [Anterior Bilateral Throughout] Respiratory Rate [Bilateral ] Blood Pressure 154/85 154/85 154/85 O2 Sat by Pulse 99 98 99 Oximetry 01/03/19 01/03/1919 06:20 06:31 06:41 Temperature Pulse Rate 80 81 82 Pulse Rate [ Anterior Bilateral Throughout] Pulse Rate [ Bilateral] Pulse Rate [ From Monitor] Pulse Rate [ Left Dorsalis Pedis] Pulse Rate [ Right Dorsalis Pedis] Respiratory 18 17 20 Rate Respiratory Rate [Anterior Bilateral Throughout] Respiratory Rate [Bilateral ] Blood Pressure 154/85 154/85 154/85 O2 Sat by Pulse 98 96 96 Oximetry 01/03/19 01/03/19 01/03/19 06:51 07:01 07:11 Temperature Pulse Rate 82 82 82 Pulse Rate [ Anterior Bilateral Throughout] Pulse Rate [ Bilateral] Pulse Rate [ From Monitor] Pulse Rate [ Left Dorsalis Pedis] Pulse Rate [ Right Dorsalis Pedis] Respiratory 12 19 24 Rate Respiratory Rate [Anterior Bilateral Throughout] Respiratory Rate [Bilateral ] Blood Pressure 154/85 137/71 137/71 O2 Sat by Pulse 97 98 100 Oximetry 01/03/19 01/03/19 01/03/19 07:21 07:31 07:41 Temperature Pulse Rate 80 79 82 Pulse Rate [ Anterior Bilateral Throughout] Pulse Rate [ Bilateral] Pulse Rate [ From Monitor] Pulse Rate [ Left Dorsalis Pedis] Pulse Rate [ Right Dorsalis Pedis] Respiratory 20 18 14 Rate Respiratory Rate [Anterior Bilateral Throughout] Respiratory Rate [Bilateral ] Blood Pressure 137/71 137/71 137/71 O2 Sat by Pulse 98 97 98 Oximetry 01/03/19 01/03/19 01/03/19 07:51 08:00 08:09 Temperature 97.8 F Pulse Rate 80 90 Pulse Rate [ Anterior Bilateral Throughout] Pulse Rate [ 82 Bilateral] Pulse Rate [ 82 From Monitor] Pulse Rate [ Left Dorsalis Pedis] Pulse Rate [ Right Dorsalis Pedis] Respiratory 15 18 Rate Respiratory Rate [Anterior Bilateral Throughout] Respiratory 30 H Rate [Bilateral ] Blood Pressure 137/71 137/63 O2 Sat by Pulse 98 98 Oximetry 01/03/19 01/03/19 01/03/19 08:11 08:17 08:21 Temperature Pulse Rate 81 84 Pulse Rate [ 79 Anterior Bilateral Throughout] Pulse Rate [ 79 Bilateral] Pulse Rate [ From Monitor] Pulse Rate [ Left Dorsalis Pedis] Pulse Rate [ Right Dorsalis Pedis] Respiratory 16 18 Rate Respiratory 30 H Rate [Anterior Bilateral Throughout] Respiratory 30 H Rate [Bilateral ] Blood Pressure 137/63 137/63 O2 Sat by Pulse 98 99 Oximetry 01/03/19 01/03/19 01/03/19 08:31 08:41 08:51 Temperature Pulse Rate 83 83 84 Pulse Rate [ Anterior Bilateral Throughout] Pulse Rate [ Bilateral] Pulse Rate [ From Monitor] Pulse Rate [ Left Dorsalis Pedis] Pulse Rate [ Right Dorsalis Pedis] Respiratory 17 20 19 Rate Respiratory Rate [Anterior Bilateral Throughout] Respiratory Rate [Bilateral ] Blood Pressure 137/63 137/63 137/63 O2 Sat by Pulse 99 98 97 Oximetry 01/03/19 01/03/19 01/03/19 09:00 09:11 09:21 Temperature Pulse Rate 84 83 88 Pulse Rate [ Anterior Bilateral Throughout] Pulse Rate [ Bilateral] Pulse Rate [ From Monitor] Pulse Rate [ Left Dorsalis Pedis] Pulse Rate [ Right Dorsalis Pedis] Respiratory 19 15 11 L Rate Respiratory Rate [Anterior Bilateral Throughout] Respiratory Rate [Bilateral ] Blood Pressure 150/74 150/74 150/74 O2 Sat by Pulse 97 98 100 Oximetry 01/03/19 01/03/19 01/03/19 09:31 09:41 09:51 Temperature Pulse Rate 87 84 84 Pulse Rate [ Anterior Bilateral Throughout] Pulse Rate [ Bilateral] Pulse Rate [ From Monitor] Pulse Rate [ Left Dorsalis Pedis] Pulse Rate [ Right Dorsalis Pedis] Respiratory 18 14 13 Rate Respiratory Rate [Anterior Bilateral Throughout] Respiratory Rate [Bilateral ] Blood Pressure 150/74 150/74 150/74 O2 Sat by Pulse 98 100 97 Oximetry 01/03/19 01/03/19 01/03/19 10:01 10:11 10:15 Temperature Pulse Rate 83 79 Pulse Rate [ Anterior Bilateral Throughout] Pulse Rate [ Bilateral] Pulse Rate [ From Monitor] Pulse Rate [ Left Dorsalis Pedis] Pulse Rate [ Right Dorsalis Pedis] Respiratory 15 16 Rate Respiratory Rate [Anterior Bilateral Throughout] Respiratory Rate [Bilateral ] Blood Pressure 135/73 135/73 O2 Sat by Pulse 98 99 95 Oximetry 01/03/19 01/03/19 01/03/19 10:21 10:31 10:41 Temperature Pulse Rate 85 86 96 H Pulse Rate [ Anterior Bilateral Throughout] Pulse Rate [ Bilateral] Pulse Rate [ From Monitor] Pulse Rate [ Left Dorsalis Pedis] Pulse Rate [ Right Dorsalis Pedis] Respiratory 16 12 21 Rate Respiratory Rate [Anterior Bilateral Throughout] Respiratory Rate [Bilateral ] Blood Pressure 135/73 135/73 135/73 O2 Sat by Pulse 98 96 92 Oximetry 01/03/19 01/03/19 01/03/19 10:51 11:01 11:11 Temperature Pulse Rate 101 H 83 86 Pulse Rate [ Anterior Bilateral Throughout] Pulse Rate [ Bilateral] Pulse Rate [ From Monitor] Pulse Rate [ Left Dorsalis Pedis] Pulse Rate [ Right Dorsalis Pedis] Respiratory 20 15 12 Rate Respiratory Rate [Anterior Bilateral Throughout] Respiratory Rate [Bilateral ] Blood Pressure 164/101 112/71 112/71 O2 Sat by Pulse 88 93 96 Oximetry 01/03/19 01/03/19 01/03/19 11:21 11:31 11:41 Temperature Pulse Rate 83 84 85 Pulse Rate [ Anterior Bilateral Throughout] Pulse Rate [ Bilateral] Pulse Rate [ From Monitor] Pulse Rate [ Left Dorsalis Pedis] Pulse Rate [ Right Dorsalis Pedis] Respiratory 20 16 23 Rate Respiratory Rate [Anterior Bilateral Throughout] Respiratory Rate [Bilateral ] Blood Pressure 112/71 112/71 112/71 O2 Sat by Pulse 93 94 92 Oximetry 01/03/19 01/03/19 01/03/19 11:51 12:00 12:11 Temperature 98.7 F Pulse Rate 89 86 85 Pulse Rate [ Anterior Bilateral Throughout] Pulse Rate [ Bilateral] Pulse Rate [ From Monitor] Pulse Rate [ Left Dorsalis Pedis] Pulse Rate [ Right Dorsalis Pedis] Respiratory 19 16 23 Rate Respiratory Rate [Anterior Bilateral Throughout] Respiratory Rate [Bilateral ] Blood Pressure 112/71 172/76 138/116 O2 Sat by Pulse 87 96 98 Oximetry 01/03/19 12:21 Temperature Pulse Rate 91 H Pulse Rate [ Anterior Bilateral Throughout] Pulse Rate [ Bilateral] Pulse Rate [ From Monitor] Pulse Rate [ Left Dorsalis Pedis] Pulse Rate [ Right Dorsalis Pedis] Respiratory 22 Rate Respiratory Rate [Anterior Bilateral Throughout] Respiratory Rate [Bilateral ] Blood Pressure 138/116 O2 Sat by Pulse 96 Oximetry - Laboratory Findings CBC and BMP: 01/03/19 04:28 01/03/19 10:57 Abnormal Lab Findings: Abnormal Labs 12/28/18 12/28/18 12/28/18 23:58 23:58 23:58 WBC RBC 2.24 L Hgb 6.7 L Hct 20.9 L RDW 16.4 H Plt Count 99 L Lymph % (Auto) 10.7 L [place] % (Auto) 7.9 H Lymph # 0.6 L [place] # Seg Neutrophils % 80.7 H PT INR D-Dimer 815.50 H Heparin Anti-Xa Level POC ABG pH POC ABG pCO2 POC ABG pO2 Sodium 148 H Potassium 2.3 L* Chloride 128.4 H Carbon Dioxide 12 L BUN Creatinine 0.4 L Glucose POC Glucose Lactic Acid Calcium 5.0 L* Iron TIBC Total Bilirubin AST ALT < 5 L Lactate Dehydrogenase Total Creatine Kinase 44 L CK-MB (CK-2) CK-MB (CK-2) Rel Index 4.3 H Troponin T C-Reactive Protein NT-Pro-B Natriuret Pep Total Protein 2.3 L Albumin 1.1 L HDL Cholesterol Folate Ur Specific [place] Urine WBC (Auto) Crossmatch 12/28/18 12/29/18 12/29/18 23:58 00:27 01:53 WBC RBC Hgb Hct RDW Plt Count Lymph % (Auto) [place] % (Auto) Lymph # [place] # Seg Neutrophils % PT INR D-Dimer Heparin Anti-Xa Level POC ABG pH 7.169 L POC ABG pCO2 POC ABG pO2 Sodium Potassium Chloride Carbon Dioxide BUN Creatinine Glucose POC Glucose Lactic Acid Calcium Iron TIBC Total Bilirubin AST ALT Lactate Dehydrogenase Total Creatine Kinase CK-MB (CK-2) CK-MB (CK-2) Rel Index Troponin T C-Reactive Protein NT-Pro-B Natriuret Pep 1209 H Total Protein Albumin HDL Cholesterol Folate Ur Specific [place] Urine WBC (Auto) Crossmatch See Detail 12/29/18 12/29/18 12/29/18 03:00 05:02 08:34 WBC RBC Hgb Hct RDW Plt Count Lymph % (Auto) [place] % (Auto) Lymph # [place] # Seg Neutrophils % PT INR D-Dimer Heparin Anti-Xa Level POC ABG pH 7.225 L POC ABG pCO2 57.9 H POC ABG pO2 Sodium Potassium Chloride Carbon Dioxide BUN Creatinine Glucose POC Glucose Lactic Acid Calcium Iron TIBC Total Bilirubin AST ALT Lactate Dehydrogenase Total Creatine Kinase 344 H CK-MB (CK-2) 7.9 H CK-MB (CK-2) Rel Index Troponin T 0.103 H* D C-Reactive Protein NT-Pro-B Natriuret Pep Total Protein Albumin HDL Cholesterol 34 L Folate Ur Specific [place] 1.033 H Urine WBC (Auto) 31.0 H Crossmatch 12/29/18 12/29/18 12/29/18 08:34 08:53 12:51 WBC RBC Hgb Hct RDW Plt Count Lymph % (Auto) [place] % (Auto) Lymph # [place] # Seg Neutrophils % PT INR D-Dimer Heparin Anti-Xa Level POC ABG pH POC ABG pCO2 POC ABG pO2 Sodium Potassium 5.7 H D Chloride Carbon Dioxide BUN 21 H Creatinine Glucose 124 H POC Glucose 119 H Lactic Acid Calcium Iron TIBC Total Bilirubin AST ALT Lactate Dehydrogenase Total Creatine Kinase 837 H CK-MB (CK-2) 10.5 H CK-MB (CK-2) Rel Index Troponin T 0.084 H C-Reactive Protein NT-Pro-B Natriuret Pep Total Protein Albumin HDL Cholesterol Folate Ur Specific [place] Urine WBC (Auto) Crossmatch 12/29/18 12/29/18 12/29/18 12:51 12:51 15:02 WBC RBC Hgb Hct RDW 16.0 H Plt Count Lymph % (Auto) [place] % (Auto) 13.3 H Lymph # [place] # 1.4 H Seg Neutrophils % PT INR D-Dimer Heparin Anti-Xa Level POC ABG pH POC ABG pCO2 POC ABG pO2 Sodium Potassium 5.4 H Chloride Carbon Dioxide 19 L 17 L BUN 21 H 21 H Creatinine Glucose 116 H 115 H POC Glucose Lactic Acid Calcium Iron TIBC Total Bilirubin 1.50 H AST 43 H ALT Lactate Dehydrogenase 405 H Total Creatine Kinase CK-MB (CK-2) CK-MB (CK-2) Rel Index Troponin T C-Reactive Protein NT-Pro-B Natriuret Pep Total Protein 6.2 L D Albumin 3.1 L HDL Cholesterol Folate Ur Specific [place] Urine WBC (Auto) Crossmatch 12/29/18 12/29/18 12/29/18 15:03 16:46 16:46 WBC RBC Hgb Hct RDW Plt Count Lymph % (Auto) [place] % (Auto) Lymph # [place] # Seg Neutrophils % PT INR D-Dimer Heparin Anti-Xa Level POC ABG pH POC ABG pCO2 POC ABG pO2 Sodium Potassium Chloride Carbon Dioxide BUN Creatinine Glucose POC Glucose 121 H Lactic Acid 2.70 H* Calcium Iron TIBC Total Bilirubin AST ALT Lactate Dehydrogenase Total Creatine Kinase CK-MB (CK-2) CK-MB (CK-2) Rel Index Troponin T C-Reactive Protein 2.80 H NT-Pro-B Natriuret Pep Total Protein Albumin HDL Cholesterol Folate Ur Specific [place] Urine WBC (Auto) Crossmatch 12/29/18 12/29/18 12/29/18 16:50 17:37 19:37 WBC RBC Hgb Hct RDW Plt Count Lymph % (Auto) [place] % (Auto) Lymph # [place] # Seg Neutrophils % PT INR D-Dimer Heparin Anti-Xa Level POC ABG pH POC ABG pCO2 POC ABG pO2 248 H Sodium Potassium Chloride Carbon Dioxide 21 L BUN 21 H Creatinine Glucose 123 H POC Glucose 113 H Lactic Acid Calcium Iron TIBC Total Bilirubin AST ALT Lactate Dehydrogenase Total Creatine Kinase CK-MB (CK-2) CK-MB (CK-2) Rel Index Troponin T C-Reactive Protein NT-Pro-B Natriuret Pep Total Protein Albumin HDL Cholesterol Folate Ur Specific [place] Urine WBC (Auto) Crossmatch 12/29/18 12/29/18 12/30/18 20:10 21:36 04:43 WBC RBC Hgb Hct RDW Plt Count Lymph % (Auto) [place] % (Auto) Lymph # [place] # Seg Neutrophils % PT INR D-Dimer Heparin Anti-Xa Level POC ABG pH 7.327 L POC ABG pCO2 POC ABG pO2 79 L Sodium Potassium Chloride Carbon Dioxide BUN Creatinine Glucose POC Glucose Lactic Acid 2.70 H* 2.80 H* Calcium Iron TIBC Total Bilirubin AST ALT Lactate Dehydrogenase Total Creatine Kinase CK-MB (CK-2) CK-MB (CK-2) Rel Index Troponin T C-Reactive Protein NT-Pro-B Natriuret Pep Total Protein Albumin HDL Cholesterol Folate Ur Specific [place] Urine WBC (Auto) Crossmatch 12/30/18 12/30/18 12/30/18 11:42 11:42 13:43 WBC RBC Hgb Hct RDW 16.4 H Plt Count 125 L Lymph % (Auto) [place] % (Auto) Lymph # [place] # Seg Neutrophils % PT INR D-Dimer Heparin Anti-Xa Level POC ABG pH 7.225 L POC ABG pCO2 54.7 H POC ABG pO2 Sodium Potassium Chloride 108.8 H Carbon Dioxide BUN Creatinine Glucose 105 H POC Glucose Lactic Acid Calcium 8.2 L Iron TIBC Total Bilirubin AST ALT Lactate Dehydrogenase Total Creatine Kinase CK-MB (CK-2) CK-MB (CK-2) Rel Index Troponin T C-Reactive Protein NT-Pro-B Natriuret Pep Total Protein Albumin HDL Cholesterol Folate Ur Specific [place] Urine WBC (Auto) Crossmatch 12/30/18 12/30/18 12/30/18 13:53 18:17 18:17 WBC RBC Hgb Hct RDW Plt Count 114 L Lymph % (Auto) [place] % (Auto) Lymph # [place] # Seg Neutrophils % PT 16.5 H INR 1.25 H D-Dimer Heparin Anti-Xa Level POC ABG pH POC ABG pCO2 POC ABG pO2 Sodium Potassium Chloride Carbon Dioxide BUN Creatinine Glucose POC Glucose Lactic Acid Calcium Iron TIBC Total Bilirubin AST ALT Lactate Dehydrogenase Total Creatine Kinase CK-MB (CK-2) CK-MB (CK-2) Rel Index Troponin T 0.060 H D C-Reactive Protein NT-Pro-B Natriuret Pep Total Protein Albumin HDL Cholesterol Folate Ur Specific [place] Urine WBC (Auto) Crossmatch 12/31/18 12/31/18 12/31/18 00:31 04:39 05:30 WBC RBC Hgb 10.9 L Hct 32.4 L RDW 16.1 H Plt Count 97 L Lymph % (Auto) [place] % (Auto) Lymph # [place] # Seg Neutrophils % PT INR D-Dimer Heparin Anti-Xa Level 0.12 L POC ABG pH 7.337 L POC ABG pCO2 POC ABG pO2 Sodium Potassium Chloride Carbon Dioxide BUN Creatinine Glucose POC Glucose Lactic Acid Calcium Iron TIBC Total Bilirubin AST ALT Lactate Dehydrogenase Total Creatine Kinase CK-MB (CK-2) CK-MB (CK-2) Rel Index Troponin T C-Reactive Protein NT-Pro-B Natriuret Pep Total Protein Albumin HDL Cholesterol Folate Ur Specific [place] Urine WBC (Auto) Crossmatch 12/31/18 12/31/18 12/31/18 05:30 16:27 18:40 WBC RBC Hgb Hct RDW Plt Count Lymph % (Auto) [place] % (Auto) Lymph # [place] # Seg Neutrophils % PT INR D-Dimer Heparin Anti-Xa Level POC ABG pH 7.246 L POC ABG pCO2 52.6 H POC ABG pO2 Sodium Potassium Chloride 110.5 H Carbon Dioxide BUN Creatinine Glucose 107 H POC Glucose 109 H Lactic Acid Calcium 8.2 L Iron TIBC Total Bilirubin 1.30 H AST ALT Lactate Dehydrogenase Total Creatine Kinase CK-MB (CK-2) CK-MB (CK-2) Rel Index Troponin T C-Reactive Protein NT-Pro-B Natriuret Pep Total Protein 5.1 L Albumin 2.3 L HDL Cholesterol Folate Ur Specific [place] Urine WBC (Auto) Crossmatch 12/31/18 01/01/19 01/01/19 21:37 03:05 04:25 WBC RBC Hgb Hct RDW Plt Count Lymph % (Auto) [place] % (Auto) Lymph # [place] # Seg Neutrophils % PT INR D-Dimer Heparin Anti-Xa Level POC ABG pH 7.278 L POC ABG pCO2 50.6 H POC ABG pO2 111 H Sodium Potassium Chloride Carbon Dioxide BUN Creatinine Glucose POC Glucose 108 H 147 H Lactic Acid Calcium Iron TIBC Total Bilirubin AST ALT Lactate Dehydrogenase Total Creatine Kinase CK-MB (CK-2) CK-MB (CK-2) Rel Index Troponin T C-Reactive Protein NT-Pro-B Natriuret Pep Total Protein Albumin HDL Cholesterol Folate Ur Specific [place] Urine WBC (Auto) Crossmatch 01/01/19 01/01/19 01/01/19 04:42 04:42 06:32 WBC 3.9 L RBC 3.54 L Hgb 10.7 L Hct 31.6 L RDW 16.3 H Plt Count 83 L Lymph % (Auto) [place] % (Auto) Lymph # [place] # Seg Neutrophils % PT INR D-Dimer Heparin Anti-Xa Level POC ABG pH POC ABG pCO2 POC ABG pO2 Sodium Potassium Chloride 109.8 H Carbon Dioxide BUN Creatinine Glucose 134 H POC Glucose 143 H Lactic Acid Calcium 8.1 L Iron TIBC Total Bilirubin AST ALT Lactate Dehydrogenase Total Creatine Kinase CK-MB (CK-2) CK-MB (CK-2) Rel Index Troponin T C-Reactive Protein NT-Pro-B Natriuret Pep Total Protein 4.9 L Albumin 2.3 L HDL Cholesterol Folate Ur Specific [place] Urine WBC (Auto) Crossmatch 01/01/19 01/01/19 01/01/19 07:33 11:37 13:55 WBC RBC Hgb Hct RDW Plt Count Lymph % (Auto) [place] % (Auto) Lymph # [place] # Seg Neutrophils % PT INR D-Dimer Heparin Anti-Xa Level POC ABG pH 7.242 L POC ABG pCO2 55.3 H POC ABG pO2 Sodium Potassium Chloride Carbon Dioxide BUN Creatinine Glucose POC Glucose 137 H 133 H Lactic Acid Calcium Iron TIBC Total Bilirubin AST ALT Lactate Dehydrogenase Total Creatine Kinase CK-MB (CK-2) CK-MB (CK-2) Rel Index Troponin T C-Reactive Protein NT-Pro-B Natriuret Pep Total Protein Albumin HDL Cholesterol Folate Ur Specific [place] Urine WBC (Auto) Crossmatch 01/01/19 01/01/19 01/01/19 15:44 16:51 21:35 WBC RBC Hgb Hct RDW Plt Count Lymph % (Auto) [place] % (Auto) Lymph # [place] # Seg Neutrophils % PT INR D-Dimer Heparin Anti-Xa Level POC ABG pH 7.298 L POC ABG pCO2 50.6 H POC ABG pO2 Sodium Potassium Chloride Carbon Dioxide BUN Creatinine Glucose POC Glucose 139 H 106 H Lactic Acid Calcium Iron TIBC Total Bilirubin AST ALT Lactate Dehydrogenase Total Creatine Kinase CK-MB (CK-2) CK-MB (CK-2) Rel Index Troponin T C-Reactive Protein NT-Pro-B Natriuret Pep Total Protein Albumin HDL Cholesterol Folate Ur Specific [place] Urine WBC (Auto) Crossmatch 01/02/19 01/02/19 01/02/19 03:13 04:40 05:09 WBC 3.9 L RBC Hgb Hct RDW 16.1 H Plt Count 94 L Lymph % (Auto) 7.5 L [place] % (Auto) 14.2 H Lymph # 0.3 L [place] # Seg Neutrophils % 76.5 H PT INR D-Dimer Heparin Anti-Xa Level POC ABG pH 7.206 L POC ABG pCO2 65.8 H POC ABG pO2 62 L Sodium Potassium Chloride Carbon Dioxide BUN Creatinine Glucose POC Glucose 124 H Lactic Acid Calcium Iron TIBC Total Bilirubin AST ALT Lactate Dehydrogenase Total Creatine Kinase CK-MB (CK-2) CK-MB (CK-2) Rel Index Troponin T C-Reactive Protein NT-Pro-B Natriuret Pep Total Protein Albumin HDL Cholesterol Folate Ur Specific [place] Urine WBC (Auto) Crossmatch 01/02/19 01/02/19 01/02/19 05:09 05:09 05:32 WBC RBC Hgb Hct RDW Plt Count Lymph % (Auto) [place] % (Auto) Lymph # [place] # Seg Neutrophils % PT INR D-Dimer Heparin Anti-Xa Level POC ABG pH POC ABG pCO2 POC ABG pO2 Sodium Potassium Chloride 107.4 H Carbon Dioxide BUN Creatinine Glucose 133 H POC Glucose 130 H Lactic Acid Calcium 8.3 L Iron 34 L TIBC 231 L Total Bilirubin AST ALT Lactate Dehydrogenase Total Creatine Kinase CK-MB (CK-2) CK-MB (CK-2) Rel Index Troponin T C-Reactive Protein NT-Pro-B Natriuret Pep Total Protein Albumin HDL Cholesterol Folate 6.01 L Ur Specific [place] Urine WBC (Auto) Crossmatch 01/02/19 01/02/19 01/02/19 10:25 11:21 11:42 WBC RBC Hgb Hct RDW Plt Count Lymph % (Auto) [place] % (Auto) Lymph # [place] # Seg Neutrophils % PT INR D-Dimer Heparin Anti-Xa Level POC ABG pH 7.318 L POC ABG pCO2 56.7 H POC ABG pO2 215 H Sodium Potassium Chloride Carbon Dioxide BUN Creatinine Glucose POC Glucose 108 H 152 H Lactic Acid Calcium Iron TIBC Total Bilirubin AST ALT Lactate Dehydrogenase Total Creatine Kinase CK-MB (CK-2) CK-MB (CK-2) Rel Index Troponin T C-Reactive Protein NT-Pro-B Natriuret Pep Total Protein Albumin HDL Cholesterol Folate Ur Specific [place] Urine WBC (Auto) Crossmatch 01/02/19 01/03/19 01/03/19 17:37 04:28 10:57 WBC RBC Hgb 11.6 L Hct RDW Plt Count 105 L Lymph % (Auto) [place] % (Auto) Lymph # [place] # Seg Neutrophils % PT INR D-Dimer Heparin Anti-Xa Level POC ABG pH POC ABG pCO2 POC ABG pO2 Sodium Potassium Chloride Carbon Dioxide BUN Creatinine Glucose 111 H POC Glucose 107 H Lactic Acid Calcium Iron TIBC Total Bilirubin AST ALT Lactate Dehydrogenase Total Creatine Kinase CK-MB (CK-2) CK-MB (CK-2) Rel Index Troponin T C-Reactive Protein NT-Pro-B Natriuret Pep Total Protein Albumin HDL Cholesterol Folate Ur Specific [place] Urine WBC (Auto) Crossmatch
--- NOTE | 2019-01-03 16:45 | Progress Note ---
Assessment and Plan Cultures: 12/28/2018 sputum culture: Normal respiratory ramses 12/29/2018 right pleural fluid culture: No growth in 24 hours / no organisms, no PMN, few mononuclear cells 12/29/2018 blood culture: no growth 12/29/2018 urine culture: No growth in 24 hours A/P: 73-year-old male with history of morbid obesity, ELIGIO on CPAP, CAD s/p CABG, diabetes, restless leg syndrome was brought to the emergency room on 12/28/2018 with a respiratory arrest: 1) Shock, etiology unclear: septic v/s cardiogenic. Resolved. No fever prior to admission, no leucocytosis. Fever resolved. Unclear etiology?. Large R pleural effusion, ?underlying pneumonia. No urinary symptoms, urine culture with no growth (UA with some pyuria). 2) Acute respiratory failure: better; off the vent on BIPAP 3) Large R pleural effusion: s/p thoracentesis and chest tube on 12/29/2018. Cannot rule out underlying pneumonia v/s aspiration from seizure. Pleural fluid studies pending/no sent. Pleural Gram stain not c/w empyema. Pleural culture so far negative. 12/28/2018 sputum culture showed Normal respiratory ramses. legionella not detected 4) ?Seizures: per family with previous history of seizures. Neurology on board. 5) PCN allergy: remote allergy as a child. agreeable to try Cephalosporins. 6) Thrombocytopenia: better? meds Recs: continue IV Cefepime 2 gm q8 hrs + IV Flagyl 500 mg q8 hrs D 5 of 10 monitor platelets Will follow Alyssa Curz MD [facility] Pediatrician [facility] ([facility] M [phone] O [phone] Subjective Date of service: 01/03/19 Principal diagnosis: Acute hypoxemic hypercapnic Resp failure on MVS; Himanshu. pleural effusions Interval history: Remains in CPAP, alert No fever for 4 days. ROS: unable to obtain Objective - Exam Narrative Exam: General appearance: alert on BIPAP Eyes: anicteric sclerae, moist conjunctivae; no lid-lag; PERRLA HENT: Atraumatic; oropharynx limited Neck: Trachea midline; supple, no thyromegaly or lymphadenopathy Lungs: coarse himanshu, with + right sided chest tube bloody fluid CV: RRR Abdomen: Soft, obses non-tender Extremities: himanshu arm/legs edema Skin: himanshu arms ecchymoses Psych: alert mildly agitated Neuro: alert follows commands midline/baird - Constitutional Vitals: Vital Signs Temp Pulse Resp BP Pulse Ox 98.7 F 91 H 19 164/83 95 01/03/19 12:00 01/03/19 16:00 01/03/19 16:00 01/03/19 16:00 01/03/19 16:00 Temperature -Last 24 Hours Temperature 98.7 F Temperature 97.8 F Temperature 99.3 F Temperature 99.0 F Temperature 98.9 F - Labs CBC & Chem 7: 01/03/19 04:28 01/03/19 10:57 Labs: Abnormal lab results 12/29/18 01/02/19 01/03/19 Range/Units 01:53 17:37 04:28 Hgb 11.6 L (11.8-15.2) gm/dl Plt Count 105 L (140-440) K/mm3 Glucose (75-100) mg/dL POC Glucose 107 H (70-105) Crossmatch See Detail 01/03/19 01/03/19 Range/Units 10:57 15:16 Hgb (11.8-15.2) gm/dl Plt Count (140-440) K/mm3 Glucose 111 H (75-100) mg/dL POC Glucose 135 H (70-105) Crossmatch
[2019-01-03] MEDS: LOPRESSOR PO SCH (21:19)
[2019-01-03] MEDS: ARIXTRA SUB-Q SCH ×2 (23:12→23:14)
[2019-01-04] MEDS: HumuLIN R SUB-Q SCH ×5 (01:00→21:13)
[2019-01-04] MEDS: DUONEB *Not for PRN Use IH SCH ×4 (01:17→19:46)
[2019-01-04] MEDS: KEPPRA 500 MG in NACL 0.9% 100 ML IV SCH (01:25)
[2019-01-04] MEDS: FLAGYL 500 MG/100 ML 500 MG/100 ML BAG IV SCH ×3 (05:19→21:55)
[2019-01-04 05:28] LABS: Hematocrit 34.9 % (35.5-45.6); Hemoglobin 11.5 gm/dl (11.8-15.2); Mean Corpuscular HGB Conc 33 % (32-34); Mean Corpuscular Volume 89 fl (84-94); Platelet Count 119 K/mm3 (140-440); Red Blood Count 3.92 M/mm3 (3.65-5.03); Red Cell Distribution Width 15.8 % (13.2-15.2)
[2019-01-04] MEDS: MAXIPIME/NS 2 GM/100 ML 2 GM/100 ML BAG IV SCH ×3 (05:32→21:15)
[2019-01-04 05:49] LABS: BUN/Creatinine Ratio 17; Blood Urea Nitrogen 15 mg/dL (9-20); Calcium 8.3 mg/dL (8.4-10.2); Hemolysis Index 13
--- NOTE | 2019-01-04 08:19 | Hem/Onc Progress Note ---
Assessment and Plan 1. Deep venous thrombosis, left common femoral and right peroneal; bilateral leg swelling present. The patient was placed on heparin drip. Her platelets have slightly fallen down. 2. The patient's platelet count at admission was 99 and then 196, 125, and 114. I do not have any information about the patient's baseline platelet count. HIT investigation, it is possible that the patient's baseline platelets are also low. 3. History of diabetes. 4. History of coronary artery disease. 5. Radiology shows right pleural effusion. 6. History of seizure disorder as per the notes. 7. Myocardial infarction. 8. Status post coronary artery bypass graft. 9. Electrolyte imbalance. 10. History of cerebrovascular accident. 11. History of pneumonia. 12. rt chest tube - h/o pl effusion 01/04 arixtra plt >100 US abdo limited - does not mention liver and spleen size. HIT antibodies ordered using CPAP rt chest tube+ clinically less likely HIT - as plt at admission 99k d/w dr fernandez option of eliquis as Oral agent - Patient Problems (1) DVT (deep venous thrombosis) Current Visit: Yes Status: Acute (2) Thrombocytopenia Current Visit: Yes Status: Acute Subjective Date of service: 01/04/19 Principal diagnosis: low plt and DVT Interval history: [place] [facility] [place] - Constitutional Vitals: Last Vital Signs Temp 99.0 F 01/04/19 04:00 Pulse 87 01/04/19 06:00 Resp 27 H 01/04/19 06:00 BP 150/66 01/04/19 06:00 Pulse Ox 93 01/04/19 06:00 Pain Intensity (0-10): denies any pain General appearance: no acute distress Performance status: 3-limited selfcare - EENT Eyes: EOM intact ENT: clear oral mucosa Lymph node exam: negative cervical - Neck Neck: normal ROM - Respiratory Respiratory effort: Positive: normal Respiratory: bilateral: diminished - Cardiovascular Heart Sounds: Present: S1 & S2 Extremities: No edema - Gastrointestinal General gastrointestinal: Present: soft, non-tender Rectal Exam: deferred - Genitourinary Male genitourinary: Present: deferred - Integumentary Integumentary: warm - Musculoskeletal Musculoskeletal: generalized weakness - Neurologic Neurologic: moves all extremities - Labs Lab Results: Laboratory Results - last 24 hr 12/29/18 01/03/19 01/03/19 01:53 10:12 10:57 WBC RBC Hgb Hct MCV MCH MCHC RDW Plt Count Sodium 145 Potassium 3.6 Chloride 102.5 Carbon Dioxide 26 Anion Gap 20 BUN 17 Creatinine 0.9 Estimated GFR > 60 BUN/Creatinine Ratio 19 Glucose 111 H POC Glucose 97 Calcium 8.6 Magnesium 1.70 Crossmatch See Detail 01/03/19 01/03/19 01/03/19 15:16 17:33 20:35 WBC RBC Hgb Hct MCV MCH MCHC RDW Plt Count Sodium Potassium Chloride Carbon Dioxide Anion Gap BUN Creatinine Estimated GFR BUN/Creatinine Ratio Glucose POC Glucose 135 H 166 H 114 H Calcium Magnesium Crossmatch 01/04/19 01/04/19 01/04/19 01:32 04:22 04:47 WBC 4.2 L RBC 3.92 Hgb 11.5 L Hct 34.9 L MCV 89 MCH 29 MCHC 33 RDW 15.8 H Plt Count 119 L Sodium Potassium Chloride Carbon Dioxide Anion Gap BUN Creatinine Estimated GFR BUN/Creatinine Ratio Glucose POC Glucose 114 H 103 Calcium Magnesium Crossmatch 01/04/19 04:47 WBC RBC Hgb Hct MCV MCH MCHC RDW Plt Count Sodium 145 Potassium 3.3 L Chloride 105.7 Carbon Dioxide 28 Anion Gap 15 BUN 15 Creatinine 0.9 Estimated GFR > 60 BUN/Creatinine Ratio 17 Glucose 110 H POC Glucose Calcium 8.3 L Magnesium Crossmatch Medications & Allergies - Medications Allergies/Adverse Reactions: Allergies Penicillins Allergy (Verified 12/29/18 04:18) Unknown Home Medications: Home Medications Medication Instructions Recorded Confirmed Last Taken Type Aspirin 81 mg PO DAILY 12/30/18 12/30/18 12/30/18 History AtorvaSTATin 40 mg PO HS 12/30/18 12/30/18 12/28/18 History Clopidogrel Bisulfate [Clopidogrel] 75 mg PO DAILY 12/30/18 12/30/18 12/28/18 History Furosemide 40 mg PO DAILY 12/30/18 12/30/18 12/28/18 History Gabapentin [Neurontin] 300 mg PO HS 12/30/18 12/30/18 12/28/18 History Losartan [Cozaar] 50 mg .ROUTE DAILY 12/30/18 12/30/18 12/28/18 History Metformin ER (Nf) 500 gm .ROUTE BID 12/30/18 12/30/18 12/28/18 History Metoprolol 50 mg PO DAILY 12/30/18 12/30/18 12/28/18 History Potassium 10 meq PO DAILY 12/30/18 12/30/18 12/28/18 History Ropinirole HCl 1 mg PO DAILY 12/30/18 12/30/18 12/28/18 History Sertraline 25 mg PO DAILY 12/30/18 12/30/18 12/28/18 History Sertraline 75 mg PO DAILY 12/30/18 12/30/18 12/28/18 History Active Medications: Generic Name Dose Route Start Last Admin Trade Name Freq PRN Reason Stop Dose Admin Acetaminophen 650 mg 12/29/18 04:49 12/30/18 08:33 Tylenol NJ 650 mg Q4H PRN Administration Fever >101 Albuterol/Ipratropium 1 ampul 01/01/19 14:00 01/04/19 01:17 Duoneb *Not For Prn Use* IH 1 ampul Q6HRT WENDY Administration Dextrose 50 ml 12/29/18 04:47 D50w (25gm) Syringe IV PRN PRN Hypoglycemia Famotidine 20 mg 01/04/19 10:00 Pepcid PO BID WENDY Fondaparinux 7.5 mg 01/01/19 22:00 01/03/19 23:14 Arixtra SUB-Q 7.5 mg Q24H WENDY Administration Fondaparinux 2.5 mg 01/01/19 22:00 01/03/19 23:12 Arixtra SUB-Q 2.5 mg Q24H WENDY Administration Furosemide 20 mg 01/01/19 14:00 01/03/19 09:05 Lasix IV 20 mg QDAY WENDY Administration Hydralazine HCl 10 mg 01/01/19 13:23 Apresoline IV Q4HR PRN SBP >/=170 Metronidazole 500 mg in 100 mls @ 100 mls/hr 12/30/18 14:00 01/04/19 05:19 Flagyl 500 Mg/100 Ml IV 01/08/19 13:59 100 mls/hr Q8HR WENDY Administration Protocol Cefepime HCl 2 gm in 100 mls @ 200 mls/hr 12/31/18 14:00 01/04/19 05:32 Maxipime/Ns 2 Gm/100 Ml IV 01/08/19 13:59 200 mls/hr Q8HR WENDY Administration Protocol Insulin Human Regular 0 units 01/04/19 11:30 Humulin R SUB-Q ACHS WENDY Protocol Levetiracetam 500 mg 01/04/19 10:00 Keppra PO BID WENDY Metoprolol Tartrate 12.5 mg 01/03/19 11:00 01/03/19 21:19 Lopressor PO 12.5 mg BID WENDY Administration Ondansetron HCl 4 mg 12/29/18 04:49 Zofran IV Q8H PRN Nausea And Vomiting Potassium Chloride 40 meq 01/04/19 10:00 K-Dur PO 01/06/19 10:01 QDAY WENDY
--- NOTE | 2019-01-04 10:05 | Progress Note ---
Assessment and Plan Acute respiratory failure Extubated Per pulmonary Suspected Sepsis with sepsis associated hypotension ID following Weaned off vasopressors. CAD s/p CABG in 1999 Resume home Plavix, lipitor, lopressor, losartan. Consider stress test once medically stabilized. NSVT Cont lopressor. Monitory lytes. Pleural effusion Chest tube in place Echo done 12/29/2018: EF 45-50% NSTEMI Type II Echo done 12/29/2018: EF 45-50% Resume home Plavix, lipitor, lopressor, losartan. Consider stress test once medically stabilized. History of CVA Resume home Plavix. History of left-sided carotid endarterectomy Resume home Plavix. History of seizure Per family with previous history of seizures. Neurology following. Acute BLE DVT Heparin gtt d/c'd in setting of anemia and thrombocytopenia. On Arixtra. Anemia / thrombocytopenia ?HIT hematology following Arixtra Cont present cardiac management. Can consider ischemic evaluation once medically stabilized. The patient has been seen in conjunction with Dr. Le who agrees with the assessment and plan of care. Subjective Date of service: 01/04/19 Principal diagnosis: low plt and DVT Interval history: pt resting in bed, on HiFlo O2, alert. no family at bedside. Objective Last Vital Signs Temp 99.0 F 01/04/19 04:00 Pulse 89 01/04/19 08:42 Resp 22 01/04/19 08:42 BP 150/66 01/04/19 06:00 Pulse Ox 93 01/04/19 06:00 - Physical Examination General: Other (BiPAP) HEENT: Positive: PERRL Neck: Positive: neck supple, trachea midline Cardiac: Positive: Reg Rate and Rhythm, S1/S2 Lungs: Positive: Decreased Breath Sounds Neuro: Positive: Grossly Intact Abdomen: Positive: Unremarkable Skin: Negative: Rash Extremities: Absent: edema - Labs and Meds CBC 01/04/19 Range/Units 04:47 WBC 4.2 L (4.5-11.0) K/mm3 RBC 3.92 (3.65-5.03) M/mm3 Hgb 11.5 L (11.8-15.2) gm/dl Hct 34.9 L (35.5-45.6) % Plt Count 119 L (140-440) K/mm3 Comprehensive Metabolic Panel 01/03/19 01/04/19 Range/Units 10:57 04:47 Sodium 145 145 (137-145) mmol/L Potassium 3.6 3.3 L (3.6-5.0) mmol/L Chloride 102.5 105.7 (98-107) mmol/L Carbon Dioxide 26 28 (22-30) mmol/L BUN 17 15 (9-20) mg/dL Creatinine 0.9 0.9 (0.8-1.5) mg/dL Glucose 111 H 110 H (75-100) mg/dL Calcium 8.6 8.3 L (8.4-10.2) mg/dL - Imaging and Cardiology EKG: report reviewed, image reviewed Echo: report reviewed (12/29/2018: EF 45-50%) - Telemetry EKG Rhythm: Sinus Rhythm AV and intraventricular conduction: 1 AV block, intraventricular conducti Repolarization changes or abnormalities: nonspecific abnormality, ST segment, and/or T wave - Allied health notes Allied health notes reviewed: nursing
[2019-01-04] MEDS: LOPRESSOR PO SCH ×3 (10:32→21:14)
[2019-01-04] MEDS: K-DUR PO SCH (10:32)
[2019-01-04] MEDS: LASIX IV SCH (10:34)
[2019-01-04] MEDS: KEPPRA PO SCH ×2 (10:34→21:15)
[2019-01-04] MEDS: PEPCID PO SCH ×2 (10:34→21:15)
--- NOTE | 2019-01-04 10:46 | Progress Note ---
Assessment and Plan Acute Hypoxic Respiratory failure- s/p extubated 01/01, now on supplemental oxygen NC at 3L Seizure Disorder DVT bilateral lower extremity Sepsis Right sided Pneumonia Large Right sided Pleural effusion- s/p chest tube Shock syndrome questionable septic versus cardiogenic Hypokalemia Morbid Obesity Thrombocytopenia Non ST elevated NM type II Presumed ischemic cardiomyopathy status post CABG Acute metabolic encephalopathy, much improved Hyponatremia Hypocalcemia History of CVA 2 years ago -wean FIO2 for O2 sats 88-90% -PT/OT/Mobility -CT chest in the next 24 hours to re-evaluate the right pleural space. with his bilateral DVTS and right pleural effusion, must r/o malignancy -ABG prn -Bronchodilators -Continue oral anticoagulation therapy -Gentle diuresis while monitoring renal function, hemodynamics and electrolyte profile - complete empiric antibiotics for CAP / Sepsis per ID recs - continue chronic home medications per attending - continue accuchecks with glycemic control for target glucose of 140-180 mg/dL - Maintenance of sleep-wake cycle - Influenza and pneumonia vaccination per protocol PROGNOSIS: FAIR CONDITION: IMPROVING CODE STATUS: FULL CODE Subjective Date of service: 01/04/19 Principal diagnosis: low plt and DVT Interval history: Acute hypoxemic hypercapnic respiratory failure s/p MVS; Bilateral pleural effusions, complex looking on the right; Right lung complete atelectasis; Right pneumonia (appears to be community-acquired); Severe sepsis with shock, Seen and examined at bedside; 24hour events reviewed; nursing and respiratory care staff consulted; no adverse overnight events reported to me; he is on oxygen therapy at 3L NC; no N/V/F/C; no fevers, no nausea or vomiting. Sitting up in a chair, tolerating his meals Discussed with RN at the bedside Objective Vital Signs - 12hr 01/03/19 01/04/19 01/04/19 23:00 00:00 00:01 Temperature 98.9 F Pulse Rate 80 92 H 84 Pulse Rate [ Bilateral] Pulse Rate [ 92 H Right Dorsalis Pedis] Respiratory 16 15 23 Rate Respiratory Rate [Bilateral ] Blood Pressure 121/76 143/78 O2 Sat by Pulse 95 98 98 Oximetry 01/04/19 01/04/19 01/04/19 00:03 01:00 01:17 Temperature Pulse Rate 87 92 H Pulse Rate [ 84 Bilateral] Pulse Rate [ Right Dorsalis Pedis] Respiratory 21 22 Rate Respiratory 16 Rate [Bilateral ] Blood Pressure 143/78 158/91 O2 Sat by Pulse 98 98 Oximetry 01/04/19 01/04/19 01/04/19 01:21 01:41 02:00 Temperature Pulse Rate 91 H 83 Pulse Rate [ 90 Bilateral] Pulse Rate [ Right Dorsalis Pedis] Respiratory 22 19 Rate Respiratory 15 Rate [Bilateral ] Blood Pressure 158/91 146/75 O2 Sat by Pulse 97 100 Oximetry 01/04/19 01/04/19 01/04/19 03:00 04:00 04:01 Temperature 99.0 F Pulse Rate 102 H 89 Pulse Rate [ Bilateral] Pulse Rate [ 98 H Right Dorsalis Pedis] Respiratory 14 Rate Respiratory Rate [Bilateral ] Blood Pressure 136/79 136/79 O2 Sat by Pulse 98 97 96 Oximetry 01/04/19 01/04/19 01/04/19 05:00 06:00 08:41 Temperature Pulse Rate 80 87 Pulse Rate [ 89 Bilateral] Pulse Rate [ Right Dorsalis Pedis] Respiratory 20 27 H Rate Respiratory 24 Rate [Bilateral ] Blood Pressure 126/69 150/66 O2 Sat by Pulse 96 93 Oximetry 01/04/19 01/04/19 01/04/19 08:42 10:32 10:33 Temperature Pulse Rate 101 H 101 H Pulse Rate [ 89 Bilateral] Pulse Rate [ Right Dorsalis Pedis] Respiratory Rate Respiratory 22 Rate [Bilateral ] Blood Pressure 140/65 140/65 O2 Sat by Pulse Oximetry Constitutional: alert, appears uncomfortable, other (elderly looking morbidly obese CM normocephalic and withmildly increased work of breathing at rest) Eyes: non-icteric ENT: oropharynx moist Neck: supple, no lymphadenopathy, no JVD, other (large neck circumference) Effort: mildly labored, other (right chest tube, no leak) Ascultation: Bilateral: diminished breath sounds, rhonchi (bases), other (Right chest tube) Percussion: Bilateral: not dull Cardiovascular: regular rate and rhythm, other (No R/M) Gastrointestinal: normoactive bowel sounds, soft, non-tender, non-distended Integumentary: normal Extremities: no cyanosis, pink and warm, pulses normal, no ischemia or petechiae, edema (1+) Neurologic: normal mental status, non-focal exam (grossly), pupils equal and round, CN II-XII normal, motor strength normal and Psychiatric: mood appropriate, affect normal CBC and BMP: 01/04/19 04:47 01/04/19 04:47 ABG, PT/INR, D-dimer: ABG POC ABG pH 7.318 (7.35-7.45) L 01/02/19 11:21 POC ABG pCO2 56.7 (35-45) H 01/02/19 11:21 POC ABG pO2 215 (80-105) H 01/02/19 11:21 POC ABG HCO3 29.1 (22-26 mml/L) 01/02/19 11:21 POC ABG Total CO2 31 (23-27mmol/L) 01/02/19 11:21 POC ABG O2 Sat 100 01/02/19 11:21 PT/INR, D-dimer PT 16.5 Sec. (12.2-14.9) H 12/30/18 18:17 INR 1.25 (0.87-1.13) H 12/30/18 18:17 D-Dimer 815.50 ng/mlDDU (0-234) H 12/28/18 23:58 Abnormal lab findings: Abnormal Labs 12/28/18 12/28/18 12/28/18 23:58 23:58 23:58 WBC RBC 2.24 L Hgb 6.7 L Hct 20.9 L RDW 16.4 H Plt Count 99 L Lymph % (Auto) 10.7 L [place] % (Auto) 7.9 H Lymph # 0.6 L [place] # Seg Neutrophils % 80.7 H PT INR D-Dimer 815.50 H Heparin Anti-Xa Level POC ABG pH POC ABG pCO2 POC ABG pO2 Sodium 148 H Potassium 2.3 L* Chloride 128.4 H Carbon Dioxide 12 L BUN Creatinine 0.4 L Glucose POC Glucose Lactic Acid Calcium 5.0 L* Iron TIBC Total Bilirubin AST ALT < 5 L Lactate Dehydrogenase Total Creatine Kinase 44 L CK-MB (CK-2) CK-MB (CK-2) Rel Index 4.3 H Troponin T C-Reactive Protein NT-Pro-B Natriuret Pep Total Protein 2.3 L Albumin 1.1 L HDL Cholesterol Folate Ur Specific [place] Urine WBC (Auto) Crossmatch 12/28/18 12/29/18 12/29/18 23:58 00:27 01:53 WBC RBC Hgb Hct RDW Plt Count Lymph % (Auto) [place] % (Auto) Lymph # [place] # Seg Neutrophils % PT INR D-Dimer Heparin Anti-Xa Level POC ABG pH 7.169 L POC ABG pCO2 POC ABG pO2 Sodium Potassium Chloride Carbon Dioxide BUN Creatinine Glucose POC Glucose Lactic Acid Calcium Iron TIBC Total Bilirubin AST ALT Lactate Dehydrogenase Total Creatine Kinase CK-MB (CK-2) CK-MB (CK-2) Rel Index Troponin T C-Reactive Protein NT-Pro-B Natriuret Pep 1209 H Total Protein Albumin HDL Cholesterol Folate Ur Specific [place] Urine WBC (Auto) Crossmatch See Detail 12/29/18 12/29/18 12/29/18 03:00 05:02 08:34 WBC RBC Hgb Hct RDW Plt Count Lymph % (Auto) [place] % (Auto) Lymph # [place] # Seg Neutrophils % PT INR D-Dimer Heparin Anti-Xa Level POC ABG pH 7.225 L POC ABG pCO2 57.9 H POC ABG pO2 Sodium Potassium Chloride Carbon Dioxide BUN Creatinine Glucose POC Glucose Lactic Acid Calcium Iron TIBC Total Bilirubin AST ALT Lactate Dehydrogenase Total Creatine Kinase 344 H CK-MB (CK-2) 7.9 H CK-MB (CK-2) Rel Index Troponin T 0.103 H* D C-Reactive Protein NT-Pro-B Natriuret Pep Total Protein Albumin HDL Cholesterol 34 L Folate Ur Specific [place] 1.033 H Urine WBC (Auto) 31.0 H Crossmatch 12/29/18 12/29/18 12/29/18 08:34 08:53 12:51 WBC RBC Hgb Hct RDW Plt Count Lymph % (Auto) [place] % (Auto) Lymph # [place] # Seg Neutrophils % PT INR D-Dimer Heparin Anti-Xa Level POC ABG pH POC ABG pCO2 POC ABG pO2 Sodium Potassium 5.7 H D Chloride Carbon Dioxide BUN 21 H Creatinine Glucose 124 H POC Glucose 119 H Lactic Acid Calcium Iron TIBC Total Bilirubin AST ALT Lactate Dehydrogenase Total Creatine Kinase 837 H CK-MB (CK-2) 10.5 H CK-MB (CK-2) Rel Index Troponin T 0.084 H C-Reactive Protein NT-Pro-B Natriuret Pep Total Protein Albumin HDL Cholesterol Folate Ur Specific [place] Urine WBC (Auto) Crossmatch 12/29/18 12/29/18 12/29/18 12:51 12:51 15:02 WBC RBC Hgb Hct RDW 16.0 H Plt Count Lymph % (Auto) [place] % (Auto) 13.3 H Lymph # [place] # 1.4 H Seg Neutrophils % PT INR D-Dimer Heparin Anti-Xa Level POC ABG pH POC ABG pCO2 POC ABG pO2 Sodium Potassium 5.4 H Chloride Carbon Dioxide 19 L 17 L BUN 21 H 21 H Creatinine Glucose 116 H 115 H POC Glucose Lactic Acid Calcium Iron TIBC Total Bilirubin 1.50 H AST 43 H ALT Lactate Dehydrogenase 405 H Total Creatine Kinase CK-MB (CK-2) CK-MB (CK-2) Rel Index Troponin T C-Reactive Protein NT-Pro-B Natriuret Pep Total Protein 6.2 L D Albumin 3.1 L HDL Cholesterol Folate Ur Specific [place] Urine WBC (Auto) Crossmatch 12/29/18 12/29/18 12/29/18 15:03 16:46 16:46 WBC RBC Hgb Hct RDW Plt Count Lymph % (Auto) [place] % (Auto) Lymph # [place] # Seg Neutrophils % PT INR D-Dimer Heparin Anti-Xa Level POC ABG pH POC ABG pCO2 POC ABG pO2 Sodium Potassium Chloride Carbon Dioxide BUN Creatinine Glucose POC Glucose 121 H Lactic Acid 2.70 H* Calcium Iron TIBC Total Bilirubin AST ALT Lactate Dehydrogenase Total Creatine Kinase CK-MB (CK-2) CK-MB (CK-2) Rel Index Troponin T C-Reactive Protein 2.80 H NT-Pro-B Natriuret Pep Total Protein Albumin HDL Cholesterol Folate Ur Specific [place] Urine WBC (Auto) Crossmatch 12/29/18 12/29/18 12/29/18 16:50 17:37 19:37 WBC RBC Hgb Hct RDW Plt Count Lymph % (Auto) [place] % (Auto) Lymph # [place] # Seg Neutrophils % PT INR D-Dimer Heparin Anti-Xa Level POC ABG pH POC ABG pCO2 POC ABG pO2 248 H Sodium Potassium Chloride Carbon Dioxide 21 L BUN 21 H Creatinine Glucose 123 H POC Glucose 113 H Lactic Acid Calcium Iron TIBC Total Bilirubin AST ALT Lactate Dehydrogenase Total Creatine Kinase CK-MB (CK-2) CK-MB (CK-2) Rel Index Troponin T C-Reactive Protein NT-Pro-B Natriuret Pep Total Protein Albumin HDL Cholesterol Folate Ur Specific [place] Urine WBC (Auto) Crossmatch 12/29/18 12/29/18 12/30/18 20:10 21:36 04:43 WBC RBC Hgb Hct RDW Plt Count Lymph % (Auto) [place] % (Auto) Lymph # [place] # Seg Neutrophils % PT INR D-Dimer Heparin Anti-Xa Level POC ABG pH 7.327 L POC ABG pCO2 POC ABG pO2 79 L Sodium Potassium Chloride Carbon Dioxide BUN Creatinine Glucose POC Glucose Lactic Acid 2.70 H* 2.80 H* Calcium Iron TIBC Total Bilirubin AST ALT Lactate Dehydrogenase Total Creatine Kinase CK-MB (CK-2) CK-MB (CK-2) Rel Index Troponin T C-Reactive Protein NT-Pro-B Natriuret Pep Total Protein Albumin HDL Cholesterol Folate Ur Specific [place] Urine WBC (Auto) Crossmatch 12/30/18 12/30/18 12/30/18 11:42 11:42 13:43 WBC RBC Hgb Hct RDW 16.4 H Plt Count 125 L Lymph % (Auto) [place] % (Auto) Lymph # [place] # Seg Neutrophils % PT INR D-Dimer Heparin Anti-Xa Level POC ABG pH 7.225 L POC ABG pCO2 54.7 H POC ABG pO2 Sodium Potassium Chloride 108.8 H Carbon Dioxide BUN Creatinine Glucose 105 H POC Glucose Lactic Acid Calcium 8.2 L Iron TIBC Total Bilirubin AST ALT Lactate Dehydrogenase Total Creatine Kinase CK-MB (CK-2) CK-MB (CK-2) Rel Index Troponin T C-Reactive Protein NT-Pro-B Natriuret Pep Total Protein Albumin HDL Cholesterol Folate Ur Specific [place] Urine WBC (Auto) Crossmatch 12/30/18 12/30/18 12/30/18 13:53 18:17 18:17 WBC RBC Hgb Hct RDW Plt Count 114 L Lymph % (Auto) [place] % (Auto) Lymph # [place] # Seg Neutrophils % PT 16.5 H INR 1.25 H D-Dimer Heparin Anti-Xa Level POC ABG pH POC ABG pCO2 POC ABG pO2 Sodium Potassium Chloride Carbon Dioxide BUN Creatinine Glucose POC Glucose Lactic Acid Calcium Iron TIBC Total Bilirubin AST ALT Lactate Dehydrogenase Total Creatine Kinase CK-MB (CK-2) CK-MB (CK-2) Rel Index Troponin T 0.060 H D C-Reactive Protein NT-Pro-B Natriuret Pep Total Protein Albumin HDL Cholesterol Folate Ur Specific [place] Urine WBC (Auto) Crossmatch 12/31/18 12/31/18 12/31/18 00:31 04:39 05:30 WBC RBC Hgb 10.9 L Hct 32.4 L RDW 16.1 H Plt Count 97 L Lymph % (Auto) [place] % (Auto) Lymph # [place] # Seg Neutrophils % PT INR D-Dimer Heparin Anti-Xa Level 0.12 L POC ABG pH 7.337 L POC ABG pCO2 POC ABG pO2 Sodium Potassium Chloride Carbon Dioxide BUN Creatinine Glucose POC Glucose Lactic Acid Calcium Iron TIBC Total Bilirubin AST ALT Lactate Dehydrogenase Total Creatine Kinase CK-MB (CK-2) CK-MB (CK-2) Rel Index Troponin T C-Reactive Protein NT-Pro-B Natriuret Pep Total Protein Albumin HDL Cholesterol Folate Ur Specific [place] Urine WBC (Auto) Crossmatch 12/31/18 12/31/18 12/31/18 05:30 16:27 18:40 WBC RBC Hgb Hct RDW Plt Count Lymph % (Auto) [place] % (Auto) Lymph # [place] # Seg Neutrophils % PT INR D-Dimer Heparin Anti-Xa Level POC ABG pH 7.246 L POC ABG pCO2 52.6 H POC ABG pO2 Sodium Potassium Chloride 110.5 H Carbon Dioxide BUN Creatinine Glucose 107 H POC Glucose 109 H Lactic Acid Calcium 8.2 L Iron TIBC Total Bilirubin 1.30 H AST ALT Lactate Dehydrogenase Total Creatine Kinase CK-MB (CK-2) CK-MB (CK-2) Rel Index Troponin T C-Reactive Protein NT-Pro-B Natriuret Pep Total Protein 5.1 L Albumin 2.3 L HDL Cholesterol Folate Ur Specific [place] Urine WBC (Auto) Crossmatch 12/31/18 01/01/19 01/01/19 21:37 03:05 04:25 WBC RBC Hgb Hct RDW Plt Count Lymph % (Auto) [place] % (Auto) Lymph # [place] # Seg Neutrophils % PT INR D-Dimer Heparin Anti-Xa Level POC ABG pH 7.278 L POC ABG pCO2 50.6 H POC ABG pO2 111 H Sodium Potassium Chloride Carbon Dioxide BUN Creatinine Glucose POC Glucose 108 H 147 H Lactic Acid Calcium Iron TIBC Total Bilirubin AST ALT Lactate Dehydrogenase Total Creatine Kinase CK-MB (CK-2) CK-MB (CK-2) Rel Index Troponin T C-Reactive Protein NT-Pro-B Natriuret Pep Total Protein Albumin HDL Cholesterol Folate Ur Specific [place] Urine WBC (Auto) Crossmatch 01/01/19 01/01/19 01/01/19 04:42 04:42 06:32 WBC 3.9 L RBC 3.54 L Hgb 10.7 L Hct 31.6 L RDW 16.3 H Plt Count 83 L Lymph % (Auto) [place] % (Auto) Lymph # [place] # Seg Neutrophils % PT INR D-Dimer Heparin Anti-Xa Level POC ABG pH POC ABG pCO2 POC ABG pO2 Sodium Potassium Chloride 109.8 H Carbon Dioxide BUN Creatinine Glucose 134 H POC Glucose 143 H Lactic Acid Calcium 8.1 L Iron TIBC Total Bilirubin AST ALT Lactate Dehydrogenase Total Creatine Kinase CK-MB (CK-2) CK-MB (CK-2) Rel Index Troponin T C-Reactive Protein NT-Pro-B Natriuret Pep Total Protein 4.9 L Albumin 2.3 L HDL Cholesterol Folate Ur Specific [place] Urine WBC (Auto) Crossmatch 01/01/19 01/01/19 01/01/19 07:33 11:37 13:55 WBC RBC Hgb Hct RDW Plt Count Lymph % (Auto) [place] % (Auto) Lymph # [place] # Seg Neutrophils % PT INR D-Dimer Heparin Anti-Xa Level POC ABG pH 7.242 L POC ABG pCO2 55.3 H POC ABG pO2 Sodium Potassium Chloride Carbon Dioxide BUN Creatinine Glucose POC Glucose 137 H 133 H Lactic Acid Calcium Iron TIBC Total Bilirubin AST ALT Lactate Dehydrogenase Total Creatine Kinase CK-MB (CK-2) CK-MB (CK-2) Rel Index Troponin T C-Reactive Protein NT-Pro-B Natriuret Pep Total Protein Albumin HDL Cholesterol Folate Ur Specific [place] Urine WBC (Auto) Crossmatch 01/01/19 01/01/19 01/01/19 15:44 16:51 21:35 WBC RBC Hgb Hct RDW Plt Count Lymph % (Auto) [place] % (Auto) Lymph # [place] # Seg Neutrophils % PT INR D-Dimer Heparin Anti-Xa Level POC ABG pH 7.298 L POC ABG pCO2 50.6 H POC ABG pO2 Sodium Potassium Chloride Carbon Dioxide BUN Creatinine Glucose POC Glucose 139 H 106 H Lactic Acid Calcium Iron TIBC Total Bilirubin AST ALT Lactate Dehydrogenase Total Creatine Kinase CK-MB (CK-2) CK-MB (CK-2) Rel Index Troponin T C-Reactive Protein NT-Pro-B Natriuret Pep Total Protein Albumin HDL Cholesterol Folate Ur Specific [place] Urine WBC (Auto) Crossmatch 01/02/19 01/02/19 01/02/19 03:13 04:40 05:09 WBC 3.9 L RBC Hgb Hct RDW 16.1 H Plt Count 94 L Lymph % (Auto) 7.5 L [place] % (Auto) 14.2 H Lymph # 0.3 L [place] # Seg Neutrophils % 76.5 H PT INR D-Dimer Heparin Anti-Xa Level POC ABG pH 7.206 L POC ABG pCO2 65.8 H POC ABG pO2 62 L Sodium Potassium Chloride Carbon Dioxide BUN Creatinine Glucose POC Glucose 124 H Lactic Acid Calcium Iron TIBC Total Bilirubin AST ALT Lactate Dehydrogenase Total Creatine Kinase CK-MB (CK-2) CK-MB (CK-2) Rel Index Troponin T C-Reactive Protein NT-Pro-B Natriuret Pep Total Protein Albumin HDL Cholesterol Folate Ur Specific [place] Urine WBC (Auto) Crossmatch 01/02/19 01/02/19 01/02/19 05:09 05:09 05:32 WBC RBC Hgb Hct RDW Plt Count Lymph % (Auto) [place] % (Auto) Lymph # [place] # Seg Neutrophils % PT INR D-Dimer Heparin Anti-Xa Level POC ABG pH POC ABG pCO2 POC ABG pO2 Sodium Potassium Chloride 107.4 H Carbon Dioxide BUN Creatinine Glucose 133 H POC Glucose 130 H Lactic Acid Calcium 8.3 L Iron 34 L TIBC 231 L Total Bilirubin AST ALT Lactate Dehydrogenase Total Creatine Kinase CK-MB (CK-2) CK-MB (CK-2) Rel Index Troponin T C-Reactive Protein NT-Pro-B Natriuret Pep Total Protein Albumin HDL Cholesterol Folate 6.01 L Ur Specific [place] Urine WBC (Auto) Crossmatch 01/02/19 01/02/19 01/02/19 10:25 11:21 11:42 WBC RBC Hgb Hct RDW Plt Count Lymph % (Auto) [place] % (Auto) Lymph # [place] # Seg Neutrophils % PT INR D-Dimer Heparin Anti-Xa Level POC ABG pH 7.318 L POC ABG pCO2 56.7 H POC ABG pO2 215 H Sodium Potassium Chloride Carbon Dioxide BUN Creatinine Glucose POC Glucose 108 H 152 H Lactic Acid Calcium Iron TIBC Total Bilirubin AST ALT Lactate Dehydrogenase Total Creatine Kinase CK-MB (CK-2) CK-MB (CK-2) Rel Index Troponin T C-Reactive Protein NT-Pro-B Natriuret Pep Total Protein Albumin HDL Cholesterol Folate Ur Specific [place] Urine WBC (Auto) Crossmatch 01/02/19 01/03/19 01/03/19 17:37 04:28 10:57 WBC RBC Hgb 11.6 L Hct RDW Plt Count 105 L Lymph % (Auto) [place] % (Auto) Lymph # [place] # Seg Neutrophils % PT INR D-Dimer Heparin Anti-Xa Level POC ABG pH POC ABG pCO2 POC ABG pO2 Sodium Potassium Chloride Carbon Dioxide BUN Creatinine Glucose 111 H POC Glucose 107 H Lactic Acid Calcium Iron TIBC Total Bilirubin AST ALT Lactate Dehydrogenase Total Creatine Kinase CK-MB (CK-2) CK-MB (CK-2) Rel Index Troponin T C-Reactive Protein NT-Pro-B Natriuret Pep Total Protein Albumin HDL Cholesterol Folate Ur Specific [place] Urine WBC (Auto) Crossmatch 01/03/19 01/03/19 01/03/19 15:16 17:33 20:35 WBC RBC Hgb Hct RDW Plt Count Lymph % (Auto) [place] % (Auto) Lymph # [place] # Seg Neutrophils % PT INR D-Dimer Heparin Anti-Xa Level POC ABG pH POC ABG pCO2 POC ABG pO2 Sodium Potassium Chloride Carbon Dioxide BUN Creatinine Glucose POC Glucose 135 H 166 H 114 H Lactic Acid Calcium Iron TIBC Total Bilirubin AST ALT Lactate Dehydrogenase Total Creatine Kinase CK-MB (CK-2) CK-MB (CK-2) Rel Index Troponin T C-Reactive Protein NT-Pro-B Natriuret Pep Total Protein Albumin HDL Cholesterol Folate Ur Specific [place] Urine WBC (Auto) Crossmatch 01/04/19 01/04/19 01/04/19 01:32 04:47 04:47 WBC 4.2 L RBC Hgb 11.5 L Hct 34.9 L RDW 15.8 H Plt Count 119 L Lymph % (Auto) [place] % (Auto) Lymph # [place] # Seg Neutrophils % PT INR D-Dimer Heparin Anti-Xa Level POC ABG pH POC ABG pCO2 POC ABG pO2 Sodium Potassium 3.3 L Chloride Carbon Dioxide BUN Creatinine Glucose 110 H POC Glucose 114 H Lactic Acid Calcium 8.3 L Iron TIBC Total Bilirubin AST ALT Lactate Dehydrogenase Total Creatine Kinase CK-MB (CK-2) CK-MB (CK-2) Rel Index Troponin T C-Reactive Protein NT-Pro-B Natriuret Pep Total Protein Albumin HDL Cholesterol Folate Ur Specific [place] Urine WBC (Auto) Crossmatch 01/04/19 08:51 WBC RBC Hgb Hct RDW Plt Count Lymph % (Auto) [place] % (Auto) Lymph # [place] # Seg Neutrophils % PT INR D-Dimer Heparin Anti-Xa Level POC ABG pH POC ABG pCO2 POC ABG pO2 Sodium Potassium Chloride Carbon Dioxide BUN Creatinine Glucose POC Glucose 122 H Lactic Acid Calcium Iron TIBC Total Bilirubin AST ALT Lactate Dehydrogenase Total Creatine Kinase CK-MB (CK-2) CK-MB (CK-2) Rel Index Troponin T C-Reactive Protein NT-Pro-B Natriuret Pep Total Protein Albumin HDL Cholesterol Folate Ur Specific [place] Urine WBC (Auto) Crossmatch Allied health notes reviewed: nursing
--- NOTE | 2019-01-04 10:59 | Progress Note ---
Assessment and Plan Assessment and plan: Patient is a 73-year-old male, with mobid obesity, HTN, CAD, s/p CA, Seizure. He was admitted after spouse found him on the floor with agonal breathing 10 mins after he went to bed. EMS was called and he was transported here to the ED in respiratory distress and was intubated in the ED. CXR; right sided pleural effusion CT: no PE * Critical care, ID and cardiology consulted * Per family patient has been having 2 weeks increasing shortness of breath and also chronic bouts of hypotension * Large right sided pleural effusion noted on cxr requiring emergent chest tube placement * Concern if patient had seizure that led to being found on the floor so Neurology was consult * Appeared also septic on admission ?aspiration Acute Hypoxic Respiratory failure- s/p extubated 01/01. now on BIPAP Seizure Disorder DVT bilateral lower extremity Sepsis Right sided Pneumonia Large Right sided Pleural effusion- s/p chest tube, pending fluid analysis Shock syndrome questionable septic versus cardiogenic Hypokalemia Morbid Obesity Thrombocytopenia Non ST elevated CA type II Presumed ischemic cardiomyopathy status post CABG Acute metabolic encephalopathy Severe Protein calorie malnutrition Hyponatremia Hypocalcemia History of CVA 2 years ago Plan Extubated, placed on BIPAP, now on Oxygen by NC On heparin drip, Continue current ICU care Continue chest tube management VAP and aspiration precautions Continue abx, Follow cultures, and fluid analysis from Chest tube insertion ID following Continue AED DVT/GI prophy patient pulled out iv line, Mid line last night. History Interval history: Patient is a 73-year-old male, with mobid obesity, HTN, CAD, s/p CA, Seizure, admitted after spouse found him on the floor with agonal breathing 10 mins after he went to bed. EMS was called and transported to the hospital in full respiratory distress and was intubated in the ED. Patient extubated 01/01, put on BIPAP , now on Oxygen by NC No more fever x 5 days he pulled out Peripheral iv line and Mid line overnight Hospitalist Physical - Physical exam Narrative exam: Gen: Not in acute distress, morbidly obese, Oxygen by NC HEENT: Normocephalic, atraumatic Neck: supple, no JVD Heart: S1 and S2 reg, no murmurs, rubs or gallop Lungs: Clear, no crackles, right chest tube Abd: soft, non tender, non distended, normal BS Ext: No edema, no clubbing, no cyanosis, Neuro: Awake, alert, moves all ext, calm,was agitated last night - Constitutional Vitals: Temp Pulse Resp BP Pulse Ox 99.0 F 101 H 22 140/65 93 01/04/19 04:00 01/04/19 10:33 01/04/19 08:42 01/04/19 10:33 01/04/19 06:00 General appearance: Present: no acute distress, other (on BiPAP) Results - Labs CBC & Chem 7: 01/04/19 04:47 01/04/19 04:47 Labs: Laboratory Last Values WBC 4.2 K/mm3 (4.5-11.0) L 01/04/19 04:47 RBC 3.92 M/mm3 (3.65-5.03) 01/04/19 04:47 Hgb 11.5 gm/dl (11.8-15.2) L 01/04/19 04:47 Hct 34.9 % (35.5-45.6) L 01/04/19 04:47 MCV 89 fl (84-94) 01/04/19 04:47 MCH 29 pg (28-32) 01/04/19 04:47 MCHC 33 % (32-34) 01/04/19 04:47 RDW 15.8 % (13.2-15.2) H 01/04/19 04:47 Plt Count 119 K/mm3 (140-440) L 01/04/19 04:47 Lymph % (Auto) 7.5 % (13.4-35.0) L 01/02/19 05:09 [place] % (Auto) 14.2 % (0.0-7.3) H 01/02/19 05:09 Eos % (Auto) 1.3 % (0.0-4.3) 01/02/19 05:09 Baso % (Auto) 0.5 % (0.0-1.8) 01/02/19 05:09 Lymph # 0.3 K/mm3 (1.2-5.4) L 01/02/19 05:09 [place] # 0.6 K/mm3 (0.0-0.8) 01/02/19 05:09 Eos # 0.1 K/mm3 (0.0-0.4) 01/02/19 05:09 Baso # 0.0 K/mm3 (0.0-0.1) 01/02/19 05:09 Seg Neutrophils % 76.5 % (40.0-70.0) H 01/02/19 05:09 Seg Neutrophils # 3.0 K/mm3 (1.8-7.7) 01/02/19 05:09 PT 16.5 Sec. (12.2-14.9) H 12/30/18 18:17 INR 1.25 (0.87-1.13) H 12/30/18 18:17 APTT 33.1 Sec. (24.2-36.6) 12/30/18 18:17 D-Dimer 815.50 ng/mlDDU (0-234) H 12/28/18 23:58 Heparin Anti-Xa Level 0.70 U.I./ml (0.3-0.7) 01/02/19 05:09 POC ABG pH 7.318 (7.35-7.45) L 01/02/19 11:21 POC ABG pCO2 56.7 (35-45) H 01/02/19 11:21 POC ABG pO2 215 (80-105) H 01/02/19 11:21 POC ABG HCO3 29.1 (22-26 mml/L) 01/02/19 11:21 POC ABG Total CO2 31 (23-27mmol/L) 01/02/19 11:21 POC ABG O2 Sat 100 01/02/19 11:21 POC ABG Base Excess 3 ((-2) - (+3)mmol/L) 01/02/19 11:21 FiO2 60 % 01/02/19 11:21 Sodium 145 mmol/L (137-145) 01/04/19 04:47 Potassium 3.3 mmol/L (3.6-5.0) L 01/04/19 04:47 Chloride 105.7 mmol/L (98-107) 01/04/19 04:47 Carbon Dioxide 28 mmol/L (22-30) 01/04/19 04:47 Anion Gap 15 mmol/L 01/04/19 04:47 BUN 15 mg/dL (9-20) 01/04/19 04:47 Creatinine 0.9 mg/dL (0.8-1.5) 01/04/19 04:47 Estimated GFR > 60 ml/min 01/04/19 04:47 BUN/Creatinine Ratio 17 % 01/04/19 04:47 Glucose 110 mg/dL (75-100) H 01/04/19 04:47 POC Glucose 122 (70-105) H 01/04/19 08:51 Lactic Acid 1.50 mmol/L (0.7-2.0) 12/30/18 11:42 Calcium 8.3 mg/dL (8.4-10.2) L 01/04/19 04:47 Magnesium 1.70 mg/dL (1.7-2.3) 01/03/19 10:57 Iron 34 ug/dL (49-181) L 01/02/19 05:09 TIBC 231 mcg/dL (250-450) L 01/02/19 05:09 Ferritin 163.3 ng/mL (13.0-400.0) 01/02/19 05:09 Total Bilirubin 0.60 mg/dL (0.1-1.2) 01/01/19 04:42 AST 23 units/L (5-40) 01/01/19 04:42 ALT 10 units/L (7-56) 01/01/19 04:42 Alkaline Phosphatase 53 units/L (35-129) 01/01/19 04:42 Lactate Dehydrogenase 405 units/L (91-180) H 12/29/18 15:02 Total Creatine Kinase 837 units/L (55-170) H 12/29/18 12:51 CK-MB (CK-2) 10.5 ng/mL (0.0-4.0) H 12/29/18 12:51 CK-MB (CK-2) Rel Index 1.2 (0-4) 12/29/18 12:51 Troponin T 0.060 ng/mL (0.00-0.029) H D 12/30/18 13:53 C-Reactive Protein 2.80 mg/dL (0.00-1.30) H 12/29/18 16:46 NT-Pro-B Natriuret Pep 1209 pg/mL (0-900) H 12/28/18 23:58 Total Protein 4.9 g/dL (6.3-8.2) L 01/01/19 04:42 Albumin 2.3 g/dL (3.9-5) L 01/01/19 04:42 Albumin/Globulin Ratio 0.9 % 01/01/19 04:42 Triglycerides 113 mg/dL (2-149) 12/29/18 08:34 Cholesterol 120 mg/dL (50-199) 12/29/18 08:34 LDL Cholesterol Direct 82 mg/dL (50-130) 12/29/18 08:34 HDL Cholesterol 34 mg/dL (40-59) L 12/29/18 08:34 Cholesterol/HDL Ratio 3.52 % 12/29/18 08:34 Vitamin B12 365.3 pg/mL (211-911) 01/02/19 05:09 Folate 6.01 ng/mL (7.3-26.0) L 01/02/19 05:09 Urine Color [place] (Yellow) 12/29/18 03:00 Urine Turbidity Cloudy (Clear) 12/29/18 03:00 Urine pH 5.0 (5.0-7.0) 12/29/18 03:00 Ur Specific [place] 1.033 (1.003-1.030) H 12/29/18 03:00 Urine Protein >500 mg/dL (Negative) 12/29/18 03:00 Urine Glucose (UA) 150 mg/dL (Negative) 12/29/18 03:00 Urine Ketones Neg mg/dL (Negative) 12/29/18 03:00 Urine Blood Mod (Negative) 12/29/18 03:00 Urine Nitrite Neg (Negative) 12/29/18 03:00 Urine Bilirubin Neg (Negative) 12/29/18 03:00 Urine Urobilinogen < 2.0 mg/dL (<2.0) 12/29/18 03:00 Ur Leukocyte Esterase Neg (Negative) 12/29/18 03:00 Urine WBC (Auto) 31.0 /HPF (0.0-6.0) H 12/29/18 03:00 Urine RBC (Auto) 27.0 /HPF (0.0-6.0) 12/29/18 03:00 U Epithel Cells (Auto) 4.0 /HPF (0-13.0) 12/29/18 03:00 Urine Bacteria (Auto) 4+ /HPF (Negative) 12/29/18 03:00 Urine Mucus 3+ /HPF 04/20/19 03:00 Urine Opiates Screen Presumptive negative 12/29/18 03:00 Urine Methadone Screen Presumptive negative 12/29/18 03:00 Ur Barbiturates Screen Presumptive negative 12/29/18 03:00 Ur Phencyclidine Scrn Presumptive negative 12/29/18 03:00 Ur Amphetamines Screen Presumptive negative 12/29/18 03:00 U Benzodiazepines Scrn Presumptive negative 12/29/18 03:00 Urine Cocaine Screen Presumptive negative 12/29/18 03:00 U Marijuana (THC) Screen Presumptive negative 12/29/18 03:00 Drugs of Abuse Note Disclamer 12/29/18 03:00 Urine Legionella Ag Not detected (Not Detected) 12/31/18 05:30 Blood Type O POSITIVE 12/29/18 01:53 Antibody Screen Negative 12/29/18 01:53 Crossmatch See Detail 12/29/18 01:53 Active Medications - Current Medications Current Medications: Generic Name Dose Route Start Last Admin Trade Name Freq PRN Reason Stop Dose Admin Acetaminophen 650 mg 12/29/18 04:49 12/30/18 08:33 Tylenol SC 650 mg Q4H PRN Administration Fever >101 Albuterol/Ipratropium 1 ampul 01/01/19 14:00 01/04/19 08:41 Duoneb *Not For Prn Use* IH 1 ampul Q6HRT WENDY Administration Atorvastatin Calcium 40 mg 01/04/19 22:00 Lipitor PO QHS WENDY Clopidogrel Bisulfate 75 mg 01/05/19 10:00 Plavix PO DAILY WENDY Dextrose 50 ml 12/29/18 04:47 D50w (25gm) Syringe IV PRN PRN Hypoglycemia Famotidine 20 mg 01/04/19 10:00 01/04/19 10:34 Pepcid PO 20 mg BID WENDY Administration Fondaparinux 7.5 mg 01/01/19 22:00 01/03/19 23:14 Arixtra SUB-Q 7.5 mg Q24H WENDY Administration Fondaparinux 2.5 mg 01/01/19 22:00 01/03/19 23:12 Arixtra SUB-Q 2.5 mg Q24H WENDY Administration Furosemide 20 mg 01/01/19 14:00 01/04/19 10:34 Lasix IV 20 mg QDAY WENDY Administration Hydralazine HCl 10 mg 01/01/19 13:23 Apresoline IV Q4HR PRN SBP >/=170 Metronidazole 500 mg in 100 mls @ 100 mls/hr 12/30/18 14:00 01/04/19 05:19 Flagyl 500 Mg/100 Ml IV 01/08/19 13:59 100 mls/hr Q8HR WENDY Administration Protocol Cefepime HCl 2 gm in 100 mls @ 200 mls/hr 12/31/18 14:00 01/04/19 05:32 Maxipime/Ns 2 Gm/100 Ml IV 01/08/19 13:59 200 mls/hr Q8HR WENDY Administration Protocol Insulin Human Regular 0 units 01/04/19 11:30 Humulin R SUB-Q ACHS WENDY Protocol Levetiracetam 500 mg 01/04/19 10:00 01/04/19 10:34 Keppra PO 500 mg BID WENDY Administration Losartan Potassium 50 mg 01/04/19 11:00 Cozaar PO DAILY WENDY Metoprolol Tartrate 12.5 mg 01/03/19 11:00 01/04/19 10:33 Lopressor PO 12.5 mg BID WENDY Administration Ondansetron HCl 4 mg 12/29/18 04:49 Zofran IV Q8H PRN Nausea And Vomiting Potassium Chloride 40 meq 01/04/19 10:00 01/04/19 10:32 K-Dur PO 01/06/19 10:01 40 meq QDAY WENDY Administration Nutrition/Malnutrition Assess - Dietary Evaluation Nutrition/Malnutrition Findings: Nutrition Notes Start: 12/31/18 14:59 Freq: Status: Active Protocol: Document 01/02/19 10:58 (Rec: 01/02/19 11:06 [email or web address]-[email or web address]) Co-Sign 01/02/19 10:58 LP Nutrition Notes Initial or Follow up Reassessment Current Diagnosis Coronary Artery Disease, Diabetes,Hypertension, Respiratory Failure Other Pertinent Diagnosis (R) lung effusion Current Diet TF - Vital High Protein @ 75ml /hr Labs/Tests Glu: 133 POC: 130 Ca: 8.3 Iron: 34 Pertinent Medications Levophed gtt, D50w, Lasix, Humulin Height 5 ft 9 in Weight 145 kg [place] Body Weight (kg) 72.72 BMI 47.2 Weight Status Morbidly Obese Subjective/Other Information Per patient nurse, pt extubated yesterday and now currently on continuous bi-pap . Nurse states TF stopped and holding until further notice. Percent of energy/protein needs met: 0%/0% Burn Absent Trauma Absent #1 Nutrition Diagnosis Inadequate oral intake Diagnosis Progress(for reassessment Continues documentation) Is patient on ventilator? No Is Patient Ambulatory and/or Out of Bed No REE-([facility]-confined to bed) [phone] Additional Notes Pro needs 2.5g/kg IBW: 182g/ day Fluid needs 1ml/kcal Nutrition Intervention Change Diet Order: Advancement of diet or Restart TF Nutrition Support: Vital High Protein at 75ml/hr with 50ml water flush q4h. Kcal 1,800 Protein (gm) 158 Carbohydrates (gm) 202 Fat (gm) 42 Fluid (mL) 1,505 Fiber (gm) 0 Goal #1 Advancement of diet or TF restart Anticipated Discharge Needs: Unable to identify at this time Follow-Up By: 01/04/19 Additional Comments F/U: diet advancement
--- NOTE | 2019-01-04 13:57 | Progress Note ---
Assessment and Plan Cultures: 12/28/2018 sputum culture: Normal respiratory ramses 12/29/2018 right pleural fluid culture: No growth in 24 hours / no organisms, no PMN, few mononuclear cells 12/29/2018 blood culture: no growth 12/29/2018 urine culture: No growth in 24 hours A/P: 73-year-old male with history of morbid obesity, ELIGIO on CPAP, CAD s/p CABG, diabetes, restless leg syndrome was brought to the emergency room on 12/28/2018 with a respiratory arrest: 1) Shock, etiology unclear: septic v/s cardiogenic. Resolved. No fever prior to admission, no leucocytosis. Fever resolved. Unclear etiology?. Large R pleural effusion, ?underlying pneumonia. No urinary symptoms, urine culture with no growth (UA with some pyuria). 2) Acute respiratory failure: better; off the vent on BIPAP 3) Large R pleural effusion: s/p thoracentesis and chest tube on 12/29/2018. Cannot rule out underlying pneumonia v/s aspiration from seizure. Pleural fluid studies pending/no sent. Pleural Gram stain not c/w empyema. Pleural culture so far negative. 12/28/2018 sputum culture showed Normal respiratory ramses. legionella not detected 4) ?Seizures: per family with previous history of seizures. Neurology on board. 5) PCN allergy: remote allergy as a child. agreeable to try Cephalosporins. 6) Thrombocytopenia: better? meds Recs: continue IV Cefepime 2 gm q8 hrs + IV Flagyl 500 mg q8 hrs D 6 of 10 At discharge will do levaquin 750 mg PO qday and flagyl 500 mg PO TID total 10 days until 01/08 monitor platelets Will follow Alyssa Cruz MD Infectious Diseases Health Clinician [facility] M [phone] O [phone] Subjective Date of service: 01/04/19 Principal diagnosis: low plt and DVT Interval history: Alert talking on NC o2 in NAD no fever ROS: denies SOB, N//V/D Objective - Exam Narrative Exam: General appearance: alert on NC 02 Eyes: anicteric sclerae, moist conjunctivae; no lid-lag; PERRLA HENT: Atraumatic; oropharynx limited Neck: Trachea midline; supple, no thyromegaly or lymphadenopathy Lungs: coarse himanshu, with + right sided chest tube bloody fluid CV: RRR Abdomen: Soft, obses non-tender Extremities: himanshu arm/legs edema Skin: himanshu arms ecchymoses Psych: alert no agitated Neuro: alert talking moving all ext midline/baird - Constitutional Vitals: Vital Signs Temp Pulse Resp BP Pulse Ox 98.0 F 101 H 22 140/65 93 01/04/19 12:00 01/04/19 10:33 01/04/19 08:42 01/04/19 10:33 01/04/19 06:00 Temperature -Last 24 Hours Temperature 98.0 F Temperature 98.2 F Temperature 99.0 F Temperature 98.9 F Temperature 98.8 F Temperature 99.7 F Temperature 99 F - Labs CBC & Chem 7: 01/04/19 04:47 01/04/19 04:47 Labs: Abnormal lab results 01/03/19 01/03/19 01/03/19 Range/Units 15:16 17:33 20:35 WBC (4.5-11.0) K/mm3 Hgb (11.8-15.2) gm/dl Hct (35.5-45.6) % RDW (13.2-15.2) % Plt Count (140-440) K/mm3 Potassium (3.6-5.0) mmol/L Glucose (75-100) mg/dL POC Glucose 135 H 166 H 114 H (70-105) Calcium (8.4-10.2) mg/dL 01/04/19 01/04/19 01/04/19 Range/Units 01:32 04:47 04:47 WBC 4.2 L (4.5-11.0) K/mm3 Hgb 11.5 L (11.8-15.2) gm/dl Hct 34.9 L (35.5-45.6) % RDW 15.8 H (13.2-15.2) % Plt Count 119 L (140-440) K/mm3 Potassium 3.3 L (3.6-5.0) mmol/L Glucose 110 H (75-100) mg/dL POC Glucose 114 H (70-105) Calcium 8.3 L (8.4-10.2) mg/dL 01/04/19 Range/Units 08:51 WBC (4.5-11.0) K/mm3 Hgb (11.8-15.2) gm/dl Hct (35.5-45.6) % RDW (13.2-15.2) % Plt Count (140-440) K/mm3 Potassium (3.6-5.0) mmol/L Glucose (75-100) mg/dL POC Glucose 122 H (70-105) Calcium (8.4-10.2) mg/dL
[2019-01-04] MEDS: COZAAR PO SCH (17:48)
[2019-01-04] MEDS: ARIXTRA SUB-Q SCH ×2 (21:16)
[2019-01-05] MEDS: DUONEB *Not for PRN Use IH SCH ×4 (02:11→21:06)
--- NOTE | 2019-01-05 04:39 | XRay Report ---
PROCEDURE: XR CHEST 1V AP TECHNIQUE: Chest radiograph single view. HISTORY: Patient removed chest tube COMPARISONS: December 30, 2018 . FINDINGS: Heart: Heart size is enlarged but stable. Multiple sternal wires are present.. Mediastinum/Vessels: Normal. Lungs/Pleural space: Mild vascular congestion. Slight atelectasis both lower lungs. Mild right effus ion. Bony thorax: No acute osseous abnormality. Life support devices: None. IMPRESSION: Mild vascular congestion. Slight atelectasis both lower lungs with a mild right effusion . Stable cardiomegaly.. This document is electronically signed by Moon Francois DO., January 05 2019 04:37:18 AM ET
[2019-01-05] MEDS: MAXIPIME/NS 2 GM/100 ML 2 GM/100 ML BAG IV SCH ×3 (05:18→22:10)
[2019-01-05 05:20] LABS: Hemoglobin 12.1 gm/dl (11.8-15.2); Mean Corpuscular HGB Conc 33 % (32-34); Mean Corpuscular Volume 89 fl (84-94); Platelet Count 126 K/mm3 (140-440); Red Blood Count 4.15 M/mm3 (3.65-5.03); Red Cell Distribution Width 15.9 % (13.2-15.2)
[2019-01-05 05:37] LABS: BUN/Creatinine Ratio 12; Blood Urea Nitrogen 12 mg/dL (9-20); Calcium 8.6 mg/dL (8.4-10.2); Hemolysis Index 6
[2019-01-05] MEDS: FLAGYL 500 MG/100 ML 500 MG/100 ML BAG IV SCH ×3 (05:55→22:10)
--- NOTE | 2019-01-05 08:13 | Hem/Onc Progress Note ---
Assessment and Plan 1. Deep venous thrombosis, left common femoral and right peroneal; bilateral leg swelling present. The patient was placed on heparin drip. Her platelets have slightly fallen down. 2. The patient's platelet count at admission was 99 and then 196, 125, and 114. I do not have any information about the patient's baseline platelet count. HIT investigation, it is possible that the patient's baseline platelets are also low. 3. History of diabetes. 4. History of coronary artery disease. 5. Radiology shows right pleural effusion. 6. History of seizure disorder as per the notes. 7. Myocardial infarction. 8. Status post coronary artery bypass graft. 9. Electrolyte imbalance. 10. History of cerebrovascular accident. 11. History of pneumonia. 12. rt chest tube - h/o pl effusion 01/05 arixtra plt >100 US abdo limited - does not mention liver and spleen size. HIT antibodies ordered using CPAP clinically less likely HIT - as plt at admission 99k option of eliquis as Oral agent folic acid supplements - Patient Problems (1) DVT (deep venous thrombosis) Current Visit: Yes Status: Acute (2) Thrombocytopenia Current Visit: Yes Status: Acute Subjective Date of service: 01/05/19 Principal diagnosis: dvy - low plt Interval history: more awake - breathing better Objective - Constitutional Vitals: Last Vital Signs Temp 98.5 F 01/05/19 04:00 Pulse 97 H 01/05/19 07:00 Resp 17 01/05/19 07:00 BP 138/68 01/05/19 07:00 Pulse Ox 91 01/05/19 07:00 Pain Intensity (0-10): denies any pain General appearance: no acute distress Performance status: 3-limited selfcare - EENT Eyes: EOM intact Lymph node exam: negative cervical - Neck Neck: normal ROM - Respiratory Respiratory effort: Positive: normal Respiratory: bilateral: CTA - Cardiovascular Heart Sounds: Present: S1 & S2 Extremity abnormal: edema - Gastrointestinal General gastrointestinal: Present: soft, non-tender Rectal Exam: deferred - Genitourinary Male genitourinary: Present: deferred - Integumentary Integumentary: warm - Musculoskeletal Musculoskeletal: strength equal bilaterally - Neurologic Neurologic: moves all extremities - Labs Lab Results: Laboratory Results - last 24 hr 01/04/19 01/04/19 01/04/19 08:51 11:41 16:25 WBC RBC Hgb Hct MCV MCH MCHC RDW Plt Count Sodium Potassium Chloride Carbon Dioxide Anion Gap BUN Creatinine Estimated GFR BUN/Creatinine Ratio Glucose POC Glucose 122 H 146 H 142 H Calcium 01/04/19 01/05/19 01/05/19 21:16 04:41 04:41 WBC 4.5 RBC 4.15 Hgb 12.1 Hct 37.0 MCV 89 MCH 29 MCHC 33 RDW 15.9 H Plt Count 126 L Sodium 143 Potassium 3.4 L Chloride 102.3 Carbon Dioxide 29 Anion Gap 15 BUN 12 Creatinine 1.0 Estimated GFR > 60 BUN/Creatinine Ratio 12 Glucose 128 H POC Glucose 140 H Calcium 8.6 Medications & Allergies - Medications Allergies/Adverse Reactions: Allergies Penicillins Allergy (Verified 12/29/18 04:18) Unknown Home Medications: Home Medications Medication Instructions Recorded Confirmed Last Taken Type Aspirin 81 mg PO DAILY 12/30/18 12/30/18 12/30/18 History AtorvaSTATin 40 mg PO HS 12/30/18 12/30/18 12/28/18 History Clopidogrel Bisulfate [Clopidogrel] 75 mg PO DAILY 12/30/18 12/30/18 12/28/18 History Furosemide 40 mg PO DAILY 12/30/18 12/30/18 12/28/18 History Gabapentin [Neurontin] 300 mg PO HS 12/30/18 12/30/18 12/28/18 History Losartan [Cozaar] 50 mg .ROUTE DAILY 12/30/18 12/30/18 12/28/18 History Metformin ER (Nf) 500 gm .ROUTE BID 12/30/18 12/30/18 12/28/18 History Metoprolol 50 mg PO DAILY 12/30/18 12/30/18 12/28/18 History Potassium 10 meq PO DAILY 12/30/18 12/30/18 12/28/18 History Ropinirole HCl 1 mg PO DAILY 12/30/18 12/30/18 12/28/18 History Sertraline 25 mg PO DAILY 12/30/18 12/30/18 12/28/18 History Sertraline 75 mg PO DAILY 12/30/18 12/30/18 12/28/18 History Active Medications: Generic Name Dose Route Start Last Admin Trade Name Freq PRN Reason Stop Dose Admin Acetaminophen 650 mg 12/29/18 04:49 12/30/18 08:33 Tylenol NM 650 mg Q4H PRN Administration Fever >101 Albuterol/Ipratropium 1 ampul 01/01/19 14:00 01/05/19 02:11 Duoneb *Not For Prn Use* IH 1 ampul Q6HRT WENDY Administration Atorvastatin Calcium 40 mg 01/04/19 22:00 01/04/19 21:15 Lipitor PO 40 mg QHS WENDY Administration Clopidogrel Bisulfate 75 mg 01/05/19 10:00 Plavix PO DAILY WENDY Dextrose 50 ml 12/29/18 04:47 D50w (25gm) Syringe IV PRN PRN Hypoglycemia Famotidine 20 mg 01/04/19 10:00 01/04/19 21:15 Pepcid PO 20 mg BID WENDY Administration Fondaparinux 7.5 mg 01/01/19 22:00 01/04/19 21:16 Arixtra SUB-Q 7.5 mg Q24H WENDY Administration Fondaparinux 2.5 mg 01/01/19 22:00 01/04/19 21:16 Arixtra SUB-Q 2.5 mg Q24H WENDY Administration Furosemide 20 mg 01/01/19 14:00 01/04/19 10:34 Lasix IV 20 mg QDAY WENDY Administration Hydralazine HCl 10 mg 01/01/19 13:23 Apresoline IV Q4HR PRN SBP >/=170 Metronidazole 500 mg in 100 mls @ 100 mls/hr 12/30/18 14:00 01/05/19 05:55 Flagyl 500 Mg/100 Ml IV 01/08/19 13:59 100 mls/hr Q8HR WENDY Administration Protocol Cefepime HCl 2 gm in 100 mls @ 200 mls/hr 12/31/18 14:00 01/05/19 05:18 Maxipime/Ns 2 Gm/100 Ml IV 01/08/19 13:59 200 mls/hr Q8HR WENDY Administration Protocol Insulin Human Regular 0 units 01/04/19 11:30 01/04/19 21:13 Humulin R SUB-Q Not Given ACHS WENDY Protocol Levetiracetam 500 mg 01/04/19 10:00 01/04/19 21:15 Keppra PO 500 mg BID WENDY Administration Losartan Potassium 50 mg 01/04/19 11:00 01/04/19 17:48 Cozaar PO Not Given DAILY WENDY Metoprolol Tartrate 12.5 mg 01/03/19 11:00 01/04/19 21:14 Lopressor PO Not Given BID WENDY Ondansetron HCl 4 mg 12/29/18 04:49 Zofran IV Q8H PRN Nausea And Vomiting Potassium Chloride 40 meq 01/04/19 10:00 01/04/19 10:32 K-Dur PO 01/06/19 10:01 40 meq QDAY WENDY Administration
[2019-01-05] MEDS ORDERED: POTASSIUM CHLORIDE PO NR ×2 (08:25→20:00)
--- NOTE | 2019-01-05 09:21 | Progress Note ---
Assessment and Plan Assessment and plan: Patient is a 73-year-old male, with mobid obesity, HTN, CAD, s/p ME, Seizure. He was admitted after spouse found him on the floor with agonal breathing 10 mins after he went to bed. EMS was called and he was transported here to the ED in respiratory distress and was intubated in the ED. CXR; right sided pleural effusion CT: no PE * Critical care, ID and cardiology consulted * Per family patient has been having 2 weeks increasing shortness of breath and also chronic bouts of hypotension * Large right sided pleural effusion noted on cxr requiring emergent chest tube placement * Concern if patient had seizure that led to being found on the floor so Neurology was consult * Appeared also septic on admission ?aspiration Acute Hypoxic Respiratory failure- s/p extubated 01/01. now on BIPAP Seizure Disorder DVT bilateral lower extremity Sepsis Right sided Pneumonia Large Right sided Pleural effusion- s/p chest tube was placed Shock syndrome questionable septic versus cardiogenic Hypokalemia Morbid Obesity Thrombocytopenia Non ST elevated ME type II Presumed ischemic cardiomyopathy status post CABG Acute metabolic encephalopathy Severe Protein calorie malnutrition Hyponatremia Hypocalcemia History of CVA 2 years ago Plan Extubated, placed on BIPAP, now on Oxygen by [place] On heparin drip, Continue current ICU care VAP and aspiration precautions Continue abx, Follow cultures, and fluid analysis from Chest tube insertion ID following Continue AED DVT/GI prophy patient pulled out peripheral iv line and Mid line night of 01/03 Pulled out right chest tube last night History Interval history: Patient is a 73-year-old male, with mobid obesity, HTN, CAD, s/p ME, Seizure, admitted after spouse found him on the floor with agonal breathing 10 mins after he went to bed. EMS was called and transported to the hospital in full respiratory distress and was intubated in the ED. Patient extubated 01/01, put on BIPAP , now on Oxygen by NC No more fever x 5 days he pulled out Peripheral iv line and Mid line overnight 01/03 Pulled out right chest tube overnight 01/04 Hospitalist Physical - Physical exam Narrative exam: Gen: Not in acute distress, morbidly obese, Oxygen by NC HEENT: Normocephalic, atraumatic Neck: supple, no JVD Heart: S1 and S2 reg, no murmurs, rubs or gallop Lungs: Clear, no crackles, Abd: soft, non tender, non distended, normal BS Ext: No edema, no clubbing, no cyanosis, Neuro: Awake, alert, moves all ext, calm,was agitated last night - Constitutional Vitals: Temp Pulse Resp BP Pulse Ox 98.5 F 97 H 17 138/68 91 01/05/19 04:00 01/05/19 07:00 01/05/19 07:00 01/05/19 07:00 01/05/19 07:00 General appearance: Present: no acute distress, other (on BiPAP) Results - Labs CBC & Chem 7: 01/05/19 04:41 01/05/19 04:41 Labs: Laboratory Last Values WBC 4.5 K/mm3 (4.5-11.0) 01/05/19 04:41 RBC 4.15 M/mm3 (3.65-5.03) 01/05/19 04:41 Hgb 12.1 gm/dl (11.8-15.2) 01/05/19 04:41 Hct 37.0 % (35.5-45.6) 01/05/19 04:41 MCV 89 fl (84-94) 01/05/19 04:41 MCH 29 pg (28-32) 01/05/19 04:41 MCHC 33 % (32-34) 01/05/19 04:41 RDW 15.9 % (13.2-15.2) H 01/05/19 04:41 Plt Count 126 K/mm3 (140-440) L 01/05/19 04:41 Lymph % (Auto) 7.5 % (13.4-35.0) L 01/02/19 05:09 [place] % (Auto) 14.2 % (0.0-7.3) H 01/02/19 05:09 Eos % (Auto) 1.3 % (0.0-4.3) 01/02/19 05:09 Baso % (Auto) 0.5 % (0.0-1.8) 01/02/19 05:09 Lymph # 0.3 K/mm3 (1.2-5.4) L 01/02/19 05:09 [place] # 0.6 K/mm3 (0.0-0.8) 01/02/19 05:09 Eos # 0.1 K/mm3 (0.0-0.4) 01/02/19 05:09 Baso # 0.0 K/mm3 (0.0-0.1) 01/02/19 05:09 Seg Neutrophils % 76.5 % (40.0-70.0) H 01/02/19 05:09 Seg Neutrophils # 3.0 K/mm3 (1.8-7.7) 01/02/19 05:09 PT 16.5 Sec. (12.2-14.9) H 12/30/18 18:17 INR 1.25 (0.87-1.13) H 12/30/18 18:17 APTT 33.1 Sec. (24.2-36.6) 12/30/18 18:17 D-Dimer 815.50 ng/mlDDU (0-234) H 12/28/18 23:58 Heparin Anti-Xa Level 0.70 U.I./ml (0.3-0.7) 01/02/19 05:09 POC ABG pH 7.318 (7.35-7.45) L 01/02/19 11:21 POC ABG pCO2 56.7 (35-45) H 01/02/19 11:21 POC ABG pO2 215 (80-105) H 01/02/19 11:21 POC ABG HCO3 29.1 (22-26 mml/L) 01/02/19 11:21 POC ABG Total CO2 31 (23-27mmol/L) 01/02/19 11:21 POC ABG O2 Sat 100 01/02/19 11:21 POC ABG Base Excess 3 ((-2) - (+3)mmol/L) 01/02/19 11:21 FiO2 60 % 01/02/19 11:21 Sodium 143 mmol/L (137-145) 01/05/19 04:41 Potassium 3.4 mmol/L (3.6-5.0) L 01/05/19 04:41 Chloride 102.3 mmol/L (98-107) 01/05/19 04:41 Carbon Dioxide 29 mmol/L (22-30) 01/05/19 04:41 Anion Gap 15 mmol/L 01/05/19 04:41 BUN 12 mg/dL (9-20) 01/05/19 04:41 Creatinine 1.0 mg/dL (0.8-1.5) 01/05/19 04:41 Estimated GFR > 60 ml/min 01/05/19 04:41 BUN/Creatinine Ratio 12 % 01/05/19 04:41 Glucose 128 mg/dL (75-100) H 01/05/19 04:41 POC Glucose 134 (70-105) H 01/05/19 08:10 Lactic Acid 1.50 mmol/L (0.7-2.0) 12/30/18 11:42 Calcium 8.6 mg/dL (8.4-10.2) 01/05/19 04:41 Magnesium 1.70 mg/dL (1.7-2.3) 01/03/19 10:57 Iron 34 ug/dL (49-181) L 01/02/19 05:09 TIBC 231 mcg/dL (250-450) L 01/02/19 05:09 Ferritin 163.3 ng/mL (13.0-400.0) 01/02/19 05:09 Total Bilirubin 0.60 mg/dL (0.1-1.2) 01/01/19 04:42 AST 23 units/L (5-40) 01/01/19 04:42 ALT 10 units/L (7-56) 01/01/19 04:42 Alkaline Phosphatase 53 units/L (35-129) 01/01/19 04:42 Lactate Dehydrogenase 405 units/L (91-180) H 12/29/18 15:02 Total Creatine Kinase 837 units/L (55-170) H 12/29/18 12:51 CK-MB (CK-2) 10.5 ng/mL (0.0-4.0) H 12/29/18 12:51 CK-MB (CK-2) Rel Index 1.2 (0-4) 12/29/18 12:51 Troponin T 0.060 ng/mL (0.00-0.029) H D 12/30/18 13:53 C-Reactive Protein 2.80 mg/dL (0.00-1.30) H 12/29/18 16:46 NT-Pro-B Natriuret Pep 1209 pg/mL (0-900) H 12/28/18 23:58 Total Protein 4.9 g/dL (6.3-8.2) L 01/01/19 04:42 Albumin 2.3 g/dL (3.9-5) L 01/01/19 04:42 Albumin/Globulin Ratio 0.9 % 01/01/19 04:42 Triglycerides 113 mg/dL (2-149) 12/29/18 08:34 Cholesterol 120 mg/dL (50-199) 12/29/18 08:34 LDL Cholesterol Direct 82 mg/dL (50-130) 12/29/18 08:34 HDL Cholesterol 34 mg/dL (40-59) L 12/29/18 08:34 Cholesterol/HDL Ratio 3.52 % 12/29/18 08:34 Vitamin B12 365.3 pg/mL (211-911) 01/02/19 05:09 Folate 6.01 ng/mL (7.3-26.0) L 01/02/19 05:09 Urine Color [place] (Yellow) 12/29/18 03:00 Urine Turbidity Cloudy (Clear) 12/29/18 03:00 Urine pH 5.0 (5.0-7.0) 12/29/18 03:00 Ur Specific [place] 1.033 (1.003-1.030) H 12/29/18 03:00 Urine Protein >500 mg/dL (Negative) 12/29/18 03:00 Urine Glucose (UA) 150 mg/dL (Negative) 12/29/18 03:00 Urine Ketones Neg mg/dL (Negative) 12/29/18 03:00 Urine Blood Mod (Negative) 12/29/18 03:00 Urine Nitrite Neg (Negative) 12/29/18 03:00 Urine Bilirubin Neg (Negative) 12/29/18 03:00 Urine Urobilinogen < 2.0 mg/dL (<2.0) 12/29/18 03:00 Ur Leukocyte Esterase Neg (Negative) 12/29/18 03:00 Urine WBC (Auto) 31.0 /HPF (0.0-6.0) H 12/29/18 03:00 Urine RBC (Auto) 27.0 /HPF (0.0-6.0) 12/29/18 03:00 U Epithel Cells (Auto) 4.0 /HPF (0-13.0) 12/29/18 03:00 Urine Bacteria (Auto) 4+ /HPF (Negative) 12/29/18 03:00 Urine Mucus 3+ /HPF 12/29/18 03:00 Urine Opiates Screen Presumptive negative 12/29/18 03:00 Urine Methadone Screen Presumptive negative 12/29/18 03:00 Ur Barbiturates Screen Presumptive negative 12/29/18 03:00 Ur Phencyclidine Scrn Presumptive negative 12/29/18 03:00 Ur Amphetamines Screen Presumptive negative 12/29/18 03:00 U Benzodiazepines Scrn Presumptive negative 12/29/18 03:00 Urine Cocaine Screen Presumptive negative 12/29/18 03:00 U Marijuana (THC) Screen Presumptive negative 12/29/18 03:00 Drugs of Abuse Note Disclamer 12/29/18 03:00 Urine Legionella Ag Not detected (Not Detected) 12/31/18 05:30 Blood Type O POSITIVE 12/29/18 01:53 Antibody Screen Negative 12/29/18 01:53 Crossmatch See Detail 12/29/18 01:53 Active Medications - Current Medications Current Medications: Generic Name Dose Route Start Last Admin Trade Name Freq PRN Reason Stop Dose Admin Acetaminophen 650 mg 12/29/18 04:49 12/30/18 08:33 Tylenol LA 650 mg Q4H PRN Administration Fever >101 Albuterol/Ipratropium 1 ampul 01/01/19 14:00 01/05/19 02:11 Duoneb *Not For Prn Use* IH 1 ampul Q6HRT WENDY Administration Atorvastatin Calcium 40 mg 01/04/19 22:00 01/04/19 21:15 Lipitor PO 40 mg QHS WENDY Administration Clopidogrel Bisulfate 75 mg 01/05/19 10:00 Plavix PO DAILY WENDY Dextrose 50 ml 12/29/18 04:47 D50w (25gm) Syringe IV PRN PRN Hypoglycemia Famotidine 20 mg 01/04/19 10:00 01/04/19 21:15 Pepcid PO 20 mg BID WENDY Administration Fondaparinux 7.5 mg 01/01/19 22:00 01/04/19 21:16 Arixtra SUB-Q 7.5 mg Q24H WENDY Administration Fondaparinux 2.5 mg 01/01/19 22:00 01/04/19 21:16 Arixtra SUB-Q 2.5 mg Q24H WENDY Administration Furosemide 20 mg 01/01/19 14:00 01/04/19 10:34 Lasix IV 20 mg QDAY WENDY Administration Hydralazine HCl 10 mg 01/01/19 13:23 Apresoline IV Q4HR PRN SBP >/=170 Metronidazole 500 mg in 100 mls @ 100 mls/hr 12/30/18 14:00 01/05/19 05:55 Flagyl 500 Mg/100 Ml IV 01/08/19 13:59 100 mls/hr Q8HR WENDY Administration Protocol Cefepime HCl 2 gm in 100 mls @ 200 mls/hr 12/31/18 14:00 01/05/19 05:18 Maxipime/Ns 2 Gm/100 Ml IV 01/08/19 13:59 200 mls/hr Q8HR WENDY Administration Protocol Insulin Human Regular 0 units 01/04/19 11:30 01/04/19 21:13 Humulin R SUB-Q Not Given ACHS WENDY Protocol Levetiracetam 500 mg 01/04/19 10:00 01/04/19 21:15 Keppra PO 500 mg BID WENDY Administration Losartan Potassium 50 mg 01/04/19 11:00 01/04/19 17:48 Cozaar PO Not Given DAILY WENDY Metoprolol Tartrate 12.5 mg 01/03/19 11:00 01/04/19 21:14 Lopressor PO Not Given BID WENDY Ondansetron HCl 4 mg 12/29/18 04:49 Zofran IV Q8H PRN Nausea And Vomiting Potassium Chloride 40 meq 01/04/19 10:00 01/04/19 10:32 K-Dur PO 01/06/19 10:01 40 meq QDAY WENDY Administration Potassium Chloride 40 meq 01/05/19 20:00 Potassium Chloride PO 01/05/19 23:59 ONCE NR Nutrition/Malnutrition Assess - Dietary Evaluation Nutrition/Malnutrition Findings: Nutrition Notes Start: 12/31/18 14:59 Freq: Status: Active Protocol: Document 01/04/19 11:21 CP (Rec: 01/04/19 11:27 CP [id number]) Co-Sign 01/04/19 11:21 LP Nutrition Notes Initial or Follow up Reassessment Current Diagnosis Coronary Artery Disease, Diabetes,Hypertension, Respiratory Failure Other Pertinent Diagnosis (R) lung effusion Current Diet Cardiac/consistent carbohydrate Labs/Tests K: 3.3 Glu: 122 Pertinent Medications Reviewed Height 5 ft 9 in Weight 145 kg [place] Body Weight (kg) 72.72 BMI 47.2 Weight Status Morbidly Obese Subjective/Other Information Pt stated that his appetite was "not good" and that he consumed 0% of his meal this morning. Pt was open to ONS. Percent of energy/protein needs met: 0%/0% Burn Absent Trauma Absent #1 Nutrition Diagnosis Inadequate oral intake As Evidenced by Signs and Symptoms Pt consuming 0% of breakfast Diagnosis Progress(for reassessment Continues documentation) Is patient on ventilator? No Is Patient Ambulatory and/or Out of Bed No REE-([facility]-confined to bed) 2615.916 Kcal/Kg value to use for calculation 11 Approximate Energy Requirements Using 1595 kcal/Kg Additional Notes Pro needs:72-87g/day (1-1.2g/ kg IBW: 182g/day) Fluid needs 1ml/kcal Nutrition Intervention Change Diet Order: Continue current of per MD request Nutrition Support: D/C Add Supplement/Snack (indicate name/kcal Glucerna [place] daily /protein ) Provides kCal: 220 Provides Protein (gm) 10 Goal #1 PO/ONS intake to meet at least 75% of energy and protein needs Anticipated Discharge Needs: Cardiac/consistent carbohydrate Follow-Up By: 01/07/19 Additional Comments F/U: PO/ONS intakes
[2019-01-05] MEDS: KEPPRA PO SCH ×2 (10:27→22:11)
[2019-01-05] MEDS: PEPCID PO SCH ×2 (10:27→22:10)
[2019-01-05] MEDS: PLAVIX PO SCH (10:27)
[2019-01-05] MEDS: LOPRESSOR PO SCH ×2 (10:27→22:12)
[2019-01-05] MEDS: LASIX IV SCH (10:27)
[2019-01-05] MEDS: K-DUR PO SCH (10:27)
[2019-01-05] MEDS: COZAAR PO SCH (10:30)
[2019-01-05] MEDS: HumuLIN R SUB-Q SCH ×3 (12:39→22:11)
--- NOTE | 2019-01-05 12:44 | Progress Note ---
Subjective Date of service: 01/05/19 Principal diagnosis: low plt and DVT Interval history: patient seen and doing well much more alert and responsive appears improved and stable Objective - Vital Sign Vital Signs - 12hr 01/05/19 01/05/19 01/05/19 01:00 02:00 02:10 Temperature Pulse Rate 88 89 85 Pulse Rate [ Bilateral] Respiratory 17 22 22 Rate Respiratory Rate [Bilateral ] Blood Pressure 95/56 100/64 O2 Sat by Pulse 96 93 96 Oximetry 01/05/19 01/05/19 01/05/19 02:11 02:26 03:01 Temperature Pulse Rate 98 H Pulse Rate [ 88 90 Bilateral] Respiratory 23 Rate Respiratory 19 19 Rate [Bilateral ] Blood Pressure 110/45 O2 Sat by Pulse 94 Oximetry 01/05/19 01/05/19 01/05/19 04:00 04:01 05:01 Temperature 98.5 F Pulse Rate 103 H 88 Pulse Rate [ Bilateral] Respiratory 12 18 Rate Respiratory Rate [Bilateral ] Blood Pressure 113/41 122/65 O2 Sat by Pulse 92 94 Oximetry 01/05/19 01/05/19 01/05/19 06:00 07:00 08:00 Temperature 98.3 F Pulse Rate 85 97 H Pulse Rate [ Bilateral] Respiratory 21 17 Rate Respiratory Rate [Bilateral ] Blood Pressure 123/60 138/68 O2 Sat by Pulse 95 91 Oximetry 01/05/19 01/05/19 10:27 10:30 Temperature Pulse Rate 100 H 98 H Pulse Rate [ Bilateral] Respiratory Rate Respiratory Rate [Bilateral ] Blood Pressure 102/45 102/45 O2 Sat by Pulse Oximetry - Laboratory Findings CBC and BMP: 01/05/19 04:41 01/05/19 04:41 Abnormal Lab Findings: Abnormal Labs 12/28/18 12/28/18 12/28/18 23:58 23:58 23:58 WBC RBC 2.24 L Hgb 6.7 L Hct 20.9 L RDW 16.4 H Plt Count 99 L Lymph % (Auto) 10.7 L [place] % (Auto) 7.9 H Lymph # 0.6 L [place] # Seg Neutrophils % 80.7 H PT INR D-Dimer 815.50 H Heparin Anti-Xa Level POC ABG pH POC ABG pCO2 POC ABG pO2 Sodium 148 H Potassium 2.3 L* Chloride 128.4 H Carbon Dioxide 12 L BUN Creatinine 0.4 L Glucose POC Glucose Lactic Acid Calcium 5.0 L* Iron TIBC Total Bilirubin AST ALT < 5 L Lactate Dehydrogenase Total Creatine Kinase 44 L CK-MB (CK-2) CK-MB (CK-2) Rel Index 4.3 H Troponin T C-Reactive Protein NT-Pro-B Natriuret Pep Total Protein 2.3 L Albumin 1.1 L HDL Cholesterol Folate Ur Specific [place] Urine WBC (Auto) Crossmatch 12/28/18 12/29/18 12/29/18 23:58 00:27 01:53 WBC RBC Hgb Hct RDW Plt Count Lymph % (Auto) [place] % (Auto) Lymph # [place] # Seg Neutrophils % PT INR D-Dimer Heparin Anti-Xa Level POC ABG pH 7.169 L POC ABG pCO2 POC ABG pO2 Sodium Potassium Chloride Carbon Dioxide BUN Creatinine Glucose POC Glucose Lactic Acid Calcium Iron TIBC Total Bilirubin AST ALT Lactate Dehydrogenase Total Creatine Kinase CK-MB (CK-2) CK-MB (CK-2) Rel Index Troponin T C-Reactive Protein NT-Pro-B Natriuret Pep 1209 H Total Protein Albumin HDL Cholesterol Folate Ur Specific [place] Urine WBC (Auto) Crossmatch See Detail 12/29/18 12/29/18 12/29/18 03:00 05:02 08:34 WBC RBC Hgb Hct RDW Plt Count Lymph % (Auto) [place] % (Auto) Lymph # [place] # Seg Neutrophils % PT INR D-Dimer Heparin Anti-Xa Level POC ABG pH 7.225 L POC ABG pCO2 57.9 H POC ABG pO2 Sodium Potassium Chloride Carbon Dioxide BUN Creatinine Glucose POC Glucose Lactic Acid Calcium Iron TIBC Total Bilirubin AST ALT Lactate Dehydrogenase Total Creatine Kinase 344 H CK-MB (CK-2) 7.9 H CK-MB (CK-2) Rel Index Troponin T 0.103 H* D C-Reactive Protein NT-Pro-B Natriuret Pep Total Protein Albumin HDL Cholesterol 34 L Folate Ur Specific [place] 1.033 H Urine WBC (Auto) 31.0 H Crossmatch 12/29/18 12/29/18 12/29/18 08:34 08:53 12:51 WBC RBC Hgb Hct RDW Plt Count Lymph % (Auto) [place] % (Auto) Lymph # [place] # Seg Neutrophils % PT INR D-Dimer Heparin Anti-Xa Level POC ABG pH POC ABG pCO2 POC ABG pO2 Sodium Potassium 5.7 H D Chloride Carbon Dioxide BUN 21 H Creatinine Glucose 124 H POC Glucose 119 H Lactic Acid Calcium Iron TIBC Total Bilirubin AST ALT Lactate Dehydrogenase Total Creatine Kinase 837 H CK-MB (CK-2) 10.5 H CK-MB (CK-2) Rel Index Troponin T 0.084 H C-Reactive Protein NT-Pro-B Natriuret Pep Total Protein Albumin HDL Cholesterol Folate Ur Specific [place] Urine WBC (Auto) Crossmatch 12/29/18 12/29/18 12/29/18 12:51 12:51 15:02 WBC RBC Hgb Hct RDW 16.0 H Plt Count Lymph % (Auto) [place] % (Auto) 13.3 H Lymph # [place] # 1.4 H Seg Neutrophils % PT INR D-Dimer Heparin Anti-Xa Level POC ABG pH POC ABG pCO2 POC ABG pO2 Sodium Potassium 5.4 H Chloride Carbon Dioxide 19 L 17 L BUN 21 H 21 H Creatinine Glucose 116 H 115 H POC Glucose Lactic Acid Calcium Iron TIBC Total Bilirubin 1.50 H AST 43 H ALT Lactate Dehydrogenase 405 H Total Creatine Kinase CK-MB (CK-2) CK-MB (CK-2) Rel Index Troponin T C-Reactive Protein NT-Pro-B Natriuret Pep Total Protein 6.2 L D Albumin 3.1 L HDL Cholesterol Folate Ur Specific [place] Urine WBC (Auto) Crossmatch 12/29/18 12/29/18 12/29/18 15:03 16:46 16:46 WBC RBC Hgb Hct RDW Plt Count Lymph % (Auto) [place] % (Auto) Lymph # [place] # Seg Neutrophils % PT INR D-Dimer Heparin Anti-Xa Level POC ABG pH POC ABG pCO2 POC ABG pO2 Sodium Potassium Chloride Carbon Dioxide BUN Creatinine Glucose POC Glucose 121 H Lactic Acid 2.70 H* Calcium Iron TIBC Total Bilirubin AST ALT Lactate Dehydrogenase Total Creatine Kinase CK-MB (CK-2) CK-MB (CK-2) Rel Index Troponin T C-Reactive Protein 2.80 H NT-Pro-B Natriuret Pep Total Protein Albumin HDL Cholesterol Folate Ur Specific [place] Urine WBC (Auto) Crossmatch 12/29/18 12/29/18 12/29/18 16:50 17:37 19:37 WBC RBC Hgb Hct RDW Plt Count Lymph % (Auto) [place] % (Auto) Lymph # [place] # Seg Neutrophils % PT INR D-Dimer Heparin Anti-Xa Level POC ABG pH POC ABG pCO2 POC ABG pO2 248 H Sodium Potassium Chloride Carbon Dioxide 21 L BUN 21 H Creatinine Glucose 123 H POC Glucose 113 H Lactic Acid Calcium Iron TIBC Total Bilirubin AST ALT Lactate Dehydrogenase Total Creatine Kinase CK-MB (CK-2) CK-MB (CK-2) Rel Index Troponin T C-Reactive Protein NT-Pro-B Natriuret Pep Total Protein Albumin HDL Cholesterol Folate Ur Specific [place] Urine WBC (Auto) Crossmatch 12/29/18 12/29/18 12/30/18 20:10 21:36 04:43 WBC RBC Hgb Hct RDW Plt Count Lymph % (Auto) [place] % (Auto) Lymph # [place] # Seg Neutrophils % PT INR D-Dimer Heparin Anti-Xa Level POC ABG pH 7.327 L POC ABG pCO2 POC ABG pO2 79 L Sodium Potassium Chloride Carbon Dioxide BUN Creatinine Glucose POC Glucose Lactic Acid 2.70 H* 2.80 H* Calcium Iron TIBC Total Bilirubin AST ALT Lactate Dehydrogenase Total Creatine Kinase CK-MB (CK-2) CK-MB (CK-2) Rel Index Troponin T C-Reactive Protein NT-Pro-B Natriuret Pep Total Protein Albumin HDL Cholesterol Folate Ur Specific [place] Urine WBC (Auto) Crossmatch 12/30/18 12/30/18 12/30/18 11:42 11:42 13:43 WBC RBC Hgb Hct RDW 16.4 H Plt Count 125 L Lymph % (Auto) [place] % (Auto) Lymph # [place] # Seg Neutrophils % PT INR D-Dimer Heparin Anti-Xa Level POC ABG pH 7.225 L POC ABG pCO2 54.7 H POC ABG pO2 Sodium Potassium Chloride 108.8 H Carbon Dioxide BUN Creatinine Glucose 105 H POC Glucose Lactic Acid Calcium 8.2 L Iron TIBC Total Bilirubin AST ALT Lactate Dehydrogenase Total Creatine Kinase CK-MB (CK-2) CK-MB (CK-2) Rel Index Troponin T C-Reactive Protein NT-Pro-B Natriuret Pep Total Protein Albumin HDL Cholesterol Folate Ur Specific [place] Urine WBC (Auto) Crossmatch 12/30/18 12/30/18 12/30/18 13:53 18:17 18:17 WBC RBC Hgb Hct RDW Plt Count 114 L Lymph % (Auto) [place] % (Auto) Lymph # [place] # Seg Neutrophils % PT 16.5 H INR 1.25 H D-Dimer Heparin Anti-Xa Level POC ABG pH POC ABG pCO2 POC ABG pO2 Sodium Potassium Chloride Carbon Dioxide BUN Creatinine Glucose POC Glucose Lactic Acid Calcium Iron TIBC Total Bilirubin AST ALT Lactate Dehydrogenase Total Creatine Kinase CK-MB (CK-2) CK-MB (CK-2) Rel Index Troponin T 0.060 H D C-Reactive Protein NT-Pro-B Natriuret Pep Total Protein Albumin HDL Cholesterol Folate Ur Specific [place] Urine WBC (Auto) Crossmatch 12/31/18 12/31/18 12/31/18 00:31 04:39 05:30 WBC RBC Hgb 10.9 L Hct 32.4 L RDW 16.1 H Plt Count 97 L Lymph % (Auto) [place] % (Auto) Lymph # [place] # Seg Neutrophils % PT INR D-Dimer Heparin Anti-Xa Level 0.12 L POC ABG pH 7.337 L POC ABG pCO2 POC ABG pO2 Sodium Potassium Chloride Carbon Dioxide BUN Creatinine Glucose POC Glucose Lactic Acid Calcium Iron TIBC Total Bilirubin AST ALT Lactate Dehydrogenase Total Creatine Kinase CK-MB (CK-2) CK-MB (CK-2) Rel Index Troponin T C-Reactive Protein NT-Pro-B Natriuret Pep Total Protein Albumin HDL Cholesterol Folate Ur Specific [place] Urine WBC (Auto) Crossmatch 12/31/18 12/31/18 12/31/18 05:30 16:27 18:40 WBC RBC Hgb Hct RDW Plt Count Lymph % (Auto) [place] % (Auto) Lymph # [place] # Seg Neutrophils % PT INR D-Dimer Heparin Anti-Xa Level POC ABG pH 7.246 L POC ABG pCO2 52.6 H POC ABG pO2 Sodium Potassium Chloride 110.5 H Carbon Dioxide BUN Creatinine Glucose 107 H POC Glucose 109 H Lactic Acid Calcium 8.2 L Iron TIBC Total Bilirubin 1.30 H AST ALT Lactate Dehydrogenase Total Creatine Kinase CK-MB (CK-2) CK-MB (CK-2) Rel Index Troponin T C-Reactive Protein NT-Pro-B Natriuret Pep Total Protein 5.1 L Albumin 2.3 L HDL Cholesterol Folate Ur Specific [place] Urine WBC (Auto) Crossmatch 12/31/18 01/01/19 01/01/19 21:37 03:05 04:25 WBC RBC Hgb Hct RDW Plt Count Lymph % (Auto) [place] % (Auto) Lymph # [place] # Seg Neutrophils % PT INR D-Dimer Heparin Anti-Xa Level POC ABG pH 7.278 L POC ABG pCO2 50.6 H POC ABG pO2 111 H Sodium Potassium Chloride Carbon Dioxide BUN Creatinine Glucose POC Glucose 108 H 147 H Lactic Acid Calcium Iron TIBC Total Bilirubin AST ALT Lactate Dehydrogenase Total Creatine Kinase CK-MB (CK-2) CK-MB (CK-2) Rel Index Troponin T C-Reactive Protein NT-Pro-B Natriuret Pep Total Protein Albumin HDL Cholesterol Folate Ur Specific [place] Urine WBC (Auto) Crossmatch 01/01/19 01/01/19 01/01/19 04:42 04:42 06:32 WBC 3.9 L RBC 3.54 L Hgb 10.7 L Hct 31.6 L RDW 16.3 H Plt Count 83 L Lymph % (Auto) [place] % (Auto) Lymph # [place] # Seg Neutrophils % PT INR D-Dimer Heparin Anti-Xa Level POC ABG pH POC ABG pCO2 POC ABG pO2 Sodium Potassium Chloride 109.8 H Carbon Dioxide BUN Creatinine Glucose 134 H POC Glucose 143 H Lactic Acid Calcium 8.1 L Iron TIBC Total Bilirubin AST ALT Lactate Dehydrogenase Total Creatine Kinase CK-MB (CK-2) CK-MB (CK-2) Rel Index Troponin T C-Reactive Protein NT-Pro-B Natriuret Pep Total Protein 4.9 L Albumin 2.3 L HDL Cholesterol Folate Ur Specific [place] Urine WBC (Auto) Crossmatch 01/01/19 01/01/19 01/01/19 07:33 11:37 13:55 WBC RBC Hgb Hct RDW Plt Count Lymph % (Auto) [place] % (Auto) Lymph # [place] # Seg Neutrophils % PT INR D-Dimer Heparin Anti-Xa Level POC ABG pH 7.242 L POC ABG pCO2 55.3 H POC ABG pO2 Sodium Potassium Chloride Carbon Dioxide BUN Creatinine Glucose POC Glucose 137 H 133 H Lactic Acid Calcium Iron TIBC Total Bilirubin AST ALT Lactate Dehydrogenase Total Creatine Kinase CK-MB (CK-2) CK-MB (CK-2) Rel Index Troponin T C-Reactive Protein NT-Pro-B Natriuret Pep Total Protein Albumin HDL Cholesterol Folate Ur Specific [place] Urine WBC (Auto) Crossmatch 01/01/19 01/01/19 01/01/19 15:44 16:51 21:35 WBC RBC Hgb Hct RDW Plt Count Lymph % (Auto) [place] % (Auto) Lymph # [place] # Seg Neutrophils % PT INR D-Dimer Heparin Anti-Xa Level POC ABG pH 7.298 L POC ABG pCO2 50.6 H POC ABG pO2 Sodium Potassium Chloride Carbon Dioxide BUN Creatinine Glucose POC Glucose 139 H 106 H Lactic Acid Calcium Iron TIBC Total Bilirubin AST ALT Lactate Dehydrogenase Total Creatine Kinase CK-MB (CK-2) CK-MB (CK-2) Rel Index Troponin T C-Reactive Protein NT-Pro-B Natriuret Pep Total Protein Albumin HDL Cholesterol Folate Ur Specific [place] Urine WBC (Auto) Crossmatch 01/02/19 01/02/19 01/02/19 03:13 04:40 05:09 WBC 3.9 L RBC Hgb Hct RDW 16.1 H Plt Count 94 L Lymph % (Auto) 7.5 L [place] % (Auto) 14.2 H Lymph # 0.3 L [place] # Seg Neutrophils % 76.5 H PT INR D-Dimer Heparin Anti-Xa Level POC ABG pH 7.206 L POC ABG pCO2 65.8 H POC ABG pO2 62 L Sodium Potassium Chloride Carbon Dioxide BUN Creatinine Glucose POC Glucose 124 H Lactic Acid Calcium Iron TIBC Total Bilirubin AST ALT Lactate Dehydrogenase Total Creatine Kinase CK-MB (CK-2) CK-MB (CK-2) Rel Index Troponin T C-Reactive Protein NT-Pro-B Natriuret Pep Total Protein Albumin HDL Cholesterol Folate Ur Specific [place] Urine WBC (Auto) Crossmatch 01/02/19 01/02/19 01/02/19 05:09 05:09 05:32 WBC RBC Hgb Hct RDW Plt Count Lymph % (Auto) [place] % (Auto) Lymph # [place] # Seg Neutrophils % PT INR D-Dimer Heparin Anti-Xa Level POC ABG pH POC ABG pCO2 POC ABG pO2 Sodium Potassium Chloride 107.4 H Carbon Dioxide BUN Creatinine Glucose 133 H POC Glucose 130 H Lactic Acid Calcium 8.3 L Iron 34 L TIBC 231 L Total Bilirubin AST ALT Lactate Dehydrogenase Total Creatine Kinase CK-MB (CK-2) CK-MB (CK-2) Rel Index Troponin T C-Reactive Protein NT-Pro-B Natriuret Pep Total Protein Albumin HDL Cholesterol Folate 6.01 L Ur Specific [place] Urine WBC (Auto) Crossmatch 01/02/19 01/02/19 01/02/19 10:25 11:21 11:42 WBC RBC Hgb Hct RDW Plt Count Lymph % (Auto) [place] % (Auto) Lymph # [place] # Seg Neutrophils % PT INR D-Dimer Heparin Anti-Xa Level POC ABG pH 7.318 L POC ABG pCO2 56.7 H POC ABG pO2 215 H Sodium Potassium Chloride Carbon Dioxide BUN Creatinine Glucose POC Glucose 108 H 152 H Lactic Acid Calcium Iron TIBC Total Bilirubin AST ALT Lactate Dehydrogenase Total Creatine Kinase CK-MB (CK-2) CK-MB (CK-2) Rel Index Troponin T C-Reactive Protein NT-Pro-B Natriuret Pep Total Protein Albumin HDL Cholesterol Folate Ur Specific [place] Urine WBC (Auto) Crossmatch 01/02/19 01/03/19 01/03/19 17:37 04:28 10:57 WBC RBC Hgb 11.6 L Hct RDW Plt Count 105 L Lymph % (Auto) [place] % (Auto) Lymph # [place] # Seg Neutrophils % PT INR D-Dimer Heparin Anti-Xa Level POC ABG pH POC ABG pCO2 POC ABG pO2 Sodium Potassium Chloride Carbon Dioxide BUN Creatinine Glucose 111 H POC Glucose 107 H Lactic Acid Calcium Iron TIBC Total Bilirubin AST ALT Lactate Dehydrogenase Total Creatine Kinase CK-MB (CK-2) CK-MB (CK-2) Rel Index Troponin T C-Reactive Protein NT-Pro-B Natriuret Pep Total Protein Albumin HDL Cholesterol Folate Ur Specific [place] Urine WBC (Auto) Crossmatch 01/03/19 01/03/19 01/03/19 15:16 17:33 20:35 WBC RBC Hgb Hct RDW Plt Count Lymph % (Auto) [place] % (Auto) Lymph # [place] # Seg Neutrophils % PT INR D-Dimer Heparin Anti-Xa Level POC ABG pH POC ABG pCO2 POC ABG pO2 Sodium Potassium Chloride Carbon Dioxide BUN Creatinine Glucose POC Glucose 135 H 166 H 114 H Lactic Acid Calcium Iron TIBC Total Bilirubin AST ALT Lactate Dehydrogenase Total Creatine Kinase CK-MB (CK-2) CK-MB (CK-2) Rel Index Troponin T C-Reactive Protein NT-Pro-B Natriuret Pep Total Protein Albumin HDL Cholesterol Folate Ur Specific [place] Urine WBC (Auto) Crossmatch 01/04/19 01/04/19 01/04/19 01:32 04:47 04:47 WBC 4.2 L RBC Hgb 11.5 L Hct 34.9 L RDW 15.8 H Plt Count 119 L Lymph % (Auto) [place] % (Auto) Lymph # [place] # Seg Neutrophils % PT INR D-Dimer Heparin Anti-Xa Level POC ABG pH POC ABG pCO2 POC ABG pO2 Sodium Potassium 3.3 L Chloride Carbon Dioxide BUN Creatinine Glucose 110 H POC Glucose 114 H Lactic Acid Calcium 8.3 L Iron TIBC Total Bilirubin AST ALT Lactate Dehydrogenase Total Creatine Kinase CK-MB (CK-2) CK-MB (CK-2) Rel Index Troponin T C-Reactive Protein NT-Pro-B Natriuret Pep Total Protein Albumin HDL Cholesterol Folate Ur Specific [place] Urine WBC (Auto) Crossmatch 01/04/19 01/04/19 01/04/19 08:51 11:41 16:25 WBC RBC Hgb Hct RDW Plt Count Lymph % (Auto) [place] % (Auto) Lymph # [place] # Seg Neutrophils % PT INR D-Dimer Heparin Anti-Xa Level POC ABG pH POC ABG pCO2 POC ABG pO2 Sodium Potassium Chloride Carbon Dioxide BUN Creatinine Glucose POC Glucose 122 H 146 H 142 H Lactic Acid Calcium Iron TIBC Total Bilirubin AST ALT Lactate Dehydrogenase Total Creatine Kinase CK-MB (CK-2) CK-MB (CK-2) Rel Index Troponin T C-Reactive Protein NT-Pro-B Natriuret Pep Total Protein Albumin HDL Cholesterol Folate Ur Specific [place] Urine WBC (Auto) Crossmatch 01/04/19 01/05/19 01/05/19 21:16 04:41 04:41 WBC RBC Hgb Hct RDW 15.9 H Plt Count 126 L Lymph % (Auto) [place] % (Auto) Lymph # [place] # Seg Neutrophils % PT INR D-Dimer Heparin Anti-Xa Level POC ABG pH POC ABG pCO2 POC ABG pO2 Sodium Potassium 3.4 L Chloride Carbon Dioxide BUN Creatinine Glucose 128 H POC Glucose 140 H Lactic Acid Calcium Iron TIBC Total Bilirubin AST ALT Lactate Dehydrogenase Total Creatine Kinase CK-MB (CK-2) CK-MB (CK-2) Rel Index Troponin T C-Reactive Protein NT-Pro-B Natriuret Pep Total Protein Albumin HDL Cholesterol Folate Ur Specific [place] Urine WBC (Auto) Crossmatch 01/05/19 08:10 WBC RBC Hgb Hct RDW Plt Count Lymph % (Auto) [place] % (Auto) Lymph # [place] # Seg Neutrophils % PT INR D-Dimer Heparin Anti-Xa Level POC ABG pH POC ABG pCO2 POC ABG pO2 Sodium Potassium Chloride Carbon Dioxide BUN Creatinine Glucose POC Glucose 134 H Lactic Acid Calcium Iron TIBC Total Bilirubin AST ALT Lactate Dehydrogenase Total Creatine Kinase CK-MB (CK-2) CK-MB (CK-2) Rel Index Troponin T C-Reactive Protein NT-Pro-B Natriuret Pep Total Protein Albumin HDL Cholesterol Folate Ur Specific [place] Urine WBC (Auto) Crossmatch
--- NOTE | 2019-01-05 12:52 | Progress Note ---
Assessment and Plan Ultimately, he will benefit from ischemic evaluation when he is more stabilized. - Patient Problems (1) NSVT (nonsustained ventricular tachycardia) Current Visit: Yes Status: Acute (2) Lower leg DVT (deep venous thromboembolism), acute Current Visit: Yes Status: Acute (3) Non-STEMI (non-ST elevated myocardial infarction) Current Visit: Yes Status: Acute (4) Pleural effusion, right Current Visit: Yes Status: Acute (5) CAD (coronary artery disease) Current Visit: Yes Status: Chronic Qualifiers: Coronary Disease-Associated Artery/Lesion type: ag[place] artery (6) Thrombocytopenia Current Visit: Yes Status: Acute (7) CAD (coronary artery disease) Current Visit: Yes Status: Chronic (8) Hx of CABG Current Visit: Yes Status: Chronic (9) Anemia Current Visit: Yes Status: Acute (10) History of seizure Current Visit: Yes Status: Chronic (11) Diabetes mellitus Current Visit: Yes Status: Chronic Subjective Date of service: 01/05/19 Principal diagnosis: Acute resp failure, NSTEMI 2, R pleural effusion, Acute himanshu LE DVT, CAD Interval history: No complaint. In sinus rhythm with frequent PVCs. Objective Vital Signs Vital Signs 01/05/19 01/05/19 01/05/19 05:01 06:00 07:00 Temperature Pulse Rate 88 85 97 H Respiratory 18 21 17 Rate Blood Pressure 122/65 123/60 138/68 O2 Sat by Pulse 94 95 91 Oximetry 01/05/19 01/05/19 01/05/19 08:00 10:27 10:30 Temperature 98.3 F Pulse Rate 100 H 98 H Respiratory Rate Blood Pressure 102/45 102/45 O2 Sat by Pulse Oximetry - Physical Examination General: No Apparent Distress HEENT: Positive: EOMI, Normocephaly, Mucus Membranes Moist Neck: Positive: neck supple, trachea midline Cardiac: Positive: Reg Rate and Rhythm, S1/S2 Lungs: Positive: clear to auscultation Neuro: Positive: Grossly Intact Abdomen: Positive: Soft, Active Bowel Sounds. Negative: Tender Skin: Positive: Clear. Negative: Rash Musculoskeletal: Normal Range of Motion Extremities: Present: +1 Edema (bilateral leg edema) - Labs and Meds CBC 01/05/19 Range/Units 04:41 WBC 4.5 (4.5-11.0) K/mm3 RBC 4.15 (3.65-5.03) M/mm3 Hgb 12.1 (11.8-15.2) gm/dl Hct 37.0 (35.5-45.6) % Plt Count 126 L (140-440) K/mm3 Comprehensive Metabolic Panel 01/05/19 Range/Units 04:41 Sodium 143 (137-145) mmol/L Potassium 3.4 L (3.6-5.0) mmol/L Chloride 102.3 (98-107) mmol/L Carbon Dioxide 29 (22-30) mmol/L BUN 12 (9-20) mg/dL Creatinine 1.0 (0.8-1.5) mg/dL Glucose 128 H (75-100) mg/dL Calcium 8.6 (8.4-10.2) mg/dL - Imaging and Cardiology EKG: image reviewed Echo: report reviewed (12/29/2018: EF 45-50%) - Telemetry EKG Rhythm: Sinus Rhythm - EKG Sinus rhythms and dysrhythmias: sinus rhythm Ventricular dysrhythmias: ventricular premature com AV and intraventricular conduction: 1 AV block, intraventricular conducti Repolarization changes or abnormalities: nonspecific abnormality, ST segment, and/or T wave - Allied health notes Allied health notes reviewed: nursing
--- NOTE | 2019-01-05 13:11 | Progress Note ---
Assessment and Plan Acute hypoxemic hypercapnic respiratory failure, on mechanical ventilation support. Bilateral pleural effusions, complex looking on the right. Right lung complete atelectasis. Right pneumonia, appears to be community-acquired. Severe sepsis with shock, on Levophed. Anemia that is normocytic present at presentation; however, I think that may be an abnormal lab value. Hypokalemia at presentation that may also be an abnormal lab value. Hypocalcemia at presentation that may also be abnormal lab value. Morbid obesity. History of diabetes. History of hypertension. Restless legs syndrome. Elevated D-dimer - pleural fluid sent to lab but studies still not done - will get US thoracentesis and send for studies again - will repeat CT chest re: ? RLL pleural lesion - continue Arixtra for VTE - continue BIPAP qhs - continue scheduled lasix 20 mg IV daily - cardiology evaluation ongoing (input appreciated) - continue bronchodilators with pulmonary hygiene per RT - continue to wean supplemental oxygen to keep O2 sats 88-90% acutely - ID input appreciated - continue Stress ulcer prophylaxis - ST evaluation and advance diet - resume chronic home medications per attending - continue accuchecks with glycemic control for target glucose of 140-180 mg/dL - Maintenance of sleep-wake cycle - Mobility protocol as tolerated by hemodynamics for pressure ulcer prophylaxis - Influenza and pneumonia vaccination per protocol .... re-evaluate in am & prn Subjective Date of service: 01/05/19 Principal diagnosis: Acute resp failure, NSTEMI 2, R pleural effusion, Acute himanshu LE DVT, CAD Interval history: Patient is seen today for: Acute hypoxemic hypercapnic respiratory failure on MVS; Bilateral pleural effusions, complex looking on the right; Right lung complete atelectasis; Right pneumonia (appears to be community-acquired); Severe sepsis with shock, on Levophed Seen and examined at bedside; 24hour events reviewed; nursing and respiratory care staff consulted; no adverse overnight events reported to me; resting peacefully in bed; still with some delirium; remains on supplemental oxygen; 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 Objective Vital Signs - 12hr 01/05/19 01/05/19 01/05/19 02:00 02:10 02:11 Temperature Pulse Rate 89 85 Pulse Rate [ 88 Bilateral] Respiratory 22 22 Rate Respiratory 19 Rate [Bilateral ] Blood Pressure 100/64 O2 Sat by Pulse 93 96 Oximetry 01/05/19 01/05/19 01/05/19 02:26 03:01 04:00 Temperature 98.5 F Pulse Rate 98 H Pulse Rate [ 90 Bilateral] Respiratory 23 Rate Respiratory 19 Rate [Bilateral ] Blood Pressure 110/45 O2 Sat by Pulse 94 Oximetry 01/05/19 01/05/19 01/05/19 04:01 05:01 06:00 Temperature Pulse Rate 103 H 88 85 Pulse Rate [ Bilateral] Respiratory 12 18 21 Rate Respiratory Rate [Bilateral ] Blood Pressure 113/41 122/65 123/60 O2 Sat by Pulse 92 94 95 Oximetry 01/05/19 01/05/19 01/05/19 07:00 08:00 10:27 Temperature 98.3 F Pulse Rate 97 H 100 H Pulse Rate [ Bilateral] Respiratory 17 Rate Respiratory Rate [Bilateral ] Blood Pressure 138/68 102/45 O2 Sat by Pulse 91 Oximetry 01/05/19 01/05/19 10:30 12:00 Temperature 98.1 F Pulse Rate 98 H Pulse Rate [ Bilateral] Respiratory Rate Respiratory Rate [Bilateral ] Blood Pressure 102/45 O2 Sat by Pulse Oximetry Constitutional: alert, appears uncomfortable, other (elderly looking morbidly obese CM normocephalic and withmildly increased work of breathing at rest) Eyes: non-icteric ENT: oropharynx moist Neck: supple, no lymphadenopathy, no JVD, other (large neck circumference) Effort: mildly labored Ascultation: Bilateral: diminished breath sounds, rhonchi (bases) Percussion: Bilateral: not dull Cardiovascular: regular rate and rhythm, other (No R/M) Gastrointestinal: normoactive bowel sounds, soft, non-tender, non-distended Integumentary: normal Extremities: no cyanosis, pink and warm, pulses normal, no ischemia or petechiae, edema (1+) Neurologic: normal mental status, non-focal exam (grossly), pupils equal and round, CN II-XII normal, motor strength normal and Psychiatric: mood appropriate, affect normal CBC and BMP: 01/06/19 10:22 01/06/19 10:22 ABG, PT/INR, D-dimer: ABG POC ABG pH 7.318 (7.35-7.45) L 01/02/19 11:21 POC ABG pCO2 56.7 (35-45) H 01/02/19 11:21 POC ABG pO2 215 (80-105) H 01/02/19 11:21 POC ABG HCO3 29.1 (22-26 mml/L) 01/02/19 11:21 POC ABG Total CO2 31 (23-27mmol/L) 01/02/19 11:21 POC ABG O2 Sat 100 01/02/19 11:21 PT/INR, D-dimer PT 16.5 Sec. (12.2-14.9) H 12/30/18 18:17 INR 1.25 (0.87-1.13) H 12/30/18 18:17 D-Dimer 815.50 ng/mlDDU (0-234) H 12/28/18 23:58 Abnormal lab findings: Abnormal Labs 12/28/18 12/28/18 12/28/18 23:58 23:58 23:58 WBC RBC 2.24 L Hgb 6.7 L Hct 20.9 L RDW 16.4 H Plt Count 99 L Lymph % (Auto) 10.7 L [place] % (Auto) 7.9 H Lymph # 0.6 L [place] # Seg Neutrophils % 80.7 H PT INR D-Dimer 815.50 H Heparin Anti-Xa Level POC ABG pH POC ABG pCO2 POC ABG pO2 Sodium 148 H Potassium 2.3 L* Chloride 128.4 H Carbon Dioxide 12 L BUN Creatinine 0.4 L Glucose POC Glucose Lactic Acid Calcium 5.0 L* Iron TIBC Total Bilirubin AST ALT < 5 L Lactate Dehydrogenase Total Creatine Kinase 44 L CK-MB (CK-2) CK-MB (CK-2) Rel Index 4.3 H Troponin T C-Reactive Protein NT-Pro-B Natriuret Pep Total Protein 2.3 L Albumin 1.1 L HDL Cholesterol Folate Ur Specific [place] Urine WBC (Auto) Crossmatch 12/28/18 12/29/18 12/29/18 23:58 00:27 01:53 WBC RBC Hgb Hct RDW Plt Count Lymph % (Auto) [place] % (Auto) Lymph # [place] # Seg Neutrophils % PT INR D-Dimer Heparin Anti-Xa Level POC ABG pH 7.169 L POC ABG pCO2 POC ABG pO2 Sodium Potassium Chloride Carbon Dioxide BUN Creatinine Glucose POC Glucose Lactic Acid Calcium Iron TIBC Total Bilirubin AST ALT Lactate Dehydrogenase Total Creatine Kinase CK-MB (CK-2) CK-MB (CK-2) Rel Index Troponin T C-Reactive Protein NT-Pro-B Natriuret Pep 1209 H Total Protein Albumin HDL Cholesterol Folate Ur Specific [place] Urine WBC (Auto) Crossmatch See Detail 12/29/18 12/29/18 12/29/18 03:00 05:02 08:34 WBC RBC Hgb Hct RDW Plt Count Lymph % (Auto) [place] % (Auto) Lymph # [place] # Seg Neutrophils % PT INR D-Dimer Heparin Anti-Xa Level POC ABG pH 7.225 L POC ABG pCO2 57.9 H POC ABG pO2 Sodium Potassium Chloride Carbon Dioxide BUN Creatinine Glucose POC Glucose Lactic Acid Calcium Iron TIBC Total Bilirubin AST ALT Lactate Dehydrogenase Total Creatine Kinase 344 H CK-MB (CK-2) 7.9 H CK-MB (CK-2) Rel Index Troponin T 0.103 H* D C-Reactive Protein NT-Pro-B Natriuret Pep Total Protein Albumin HDL Cholesterol 34 L Folate Ur Specific [place] 1.033 H Urine WBC (Auto) 31.0 H Crossmatch 12/29/18 12/29/18 12/29/18 08:34 08:53 12:51 WBC RBC Hgb Hct RDW Plt Count Lymph % (Auto) [place] % (Auto) Lymph # [place] # Seg Neutrophils % PT INR D-Dimer Heparin Anti-Xa Level POC ABG pH POC ABG pCO2 POC ABG pO2 Sodium Potassium 5.7 H D Chloride Carbon Dioxide BUN 21 H Creatinine Glucose 124 H POC Glucose 119 H Lactic Acid Calcium Iron TIBC Total Bilirubin AST ALT Lactate Dehydrogenase Total Creatine Kinase 837 H CK-MB (CK-2) 10.5 H CK-MB (CK-2) Rel Index Troponin T 0.084 H C-Reactive Protein NT-Pro-B Natriuret Pep Total Protein Albumin HDL Cholesterol Folate Ur Specific [place] Urine WBC (Auto) Crossmatch 12/29/18 12/29/18 12/29/18 12:51 12:51 15:02 WBC RBC Hgb Hct RDW 16.0 H Plt Count Lymph % (Auto) [place] % (Auto) 13.3 H Lymph # [place] # 1.4 H Seg Neutrophils % PT INR D-Dimer Heparin Anti-Xa Level POC ABG pH POC ABG pCO2 POC ABG pO2 Sodium Potassium 5.4 H Chloride Carbon Dioxide 19 L 17 L BUN 21 H 21 H Creatinine Glucose 116 H 115 H POC Glucose Lactic Acid Calcium Iron TIBC Total Bilirubin 1.50 H AST 43 H ALT Lactate Dehydrogenase 405 H Total Creatine Kinase CK-MB (CK-2) CK-MB (CK-2) Rel Index Troponin T C-Reactive Protein NT-Pro-B Natriuret Pep Total Protein 6.2 L D Albumin 3.1 L HDL Cholesterol Folate Ur Specific [place] Urine WBC (Auto) Crossmatch 12/29/18 12/29/18 12/29/18 15:03 16:46 16:46 WBC RBC Hgb Hct RDW Plt Count Lymph % (Auto) [place] % (Auto) Lymph # [place] # Seg Neutrophils % PT INR D-Dimer Heparin Anti-Xa Level POC ABG pH POC ABG pCO2 POC ABG pO2 Sodium Potassium Chloride Carbon Dioxide BUN Creatinine Glucose POC Glucose 121 H Lactic Acid 2.70 H* Calcium Iron TIBC Total Bilirubin AST ALT Lactate Dehydrogenase Total Creatine Kinase CK-MB (CK-2) CK-MB (CK-2) Rel Index Troponin T C-Reactive Protein 2.80 H NT-Pro-B Natriuret Pep Total Protein Albumin HDL Cholesterol Folate Ur Specific [place] Urine WBC (Auto) Crossmatch 12/29/18 12/29/18 12/29/18 16:50 17:37 19:37 WBC RBC Hgb Hct RDW Plt Count Lymph % (Auto) [place] % (Auto) Lymph # [place] # Seg Neutrophils % PT INR D-Dimer Heparin Anti-Xa Level POC ABG pH POC ABG pCO2 POC ABG pO2 248 H Sodium Potassium Chloride Carbon Dioxide 21 L BUN 21 H Creatinine Glucose 123 H POC Glucose 113 H Lactic Acid Calcium Iron TIBC Total Bilirubin AST ALT Lactate Dehydrogenase Total Creatine Kinase CK-MB (CK-2) CK-MB (CK-2) Rel Index Troponin T C-Reactive Protein NT-Pro-B Natriuret Pep Total Protein Albumin HDL Cholesterol Folate Ur Specific [place] Urine WBC (Auto) Crossmatch 12/29/18 12/29/18 12/30/18 20:10 21:36 04:43 WBC RBC Hgb Hct RDW Plt Count Lymph % (Auto) [place] % (Auto) Lymph # [place] # Seg Neutrophils % PT INR D-Dimer Heparin Anti-Xa Level POC ABG pH 7.327 L POC ABG pCO2 POC ABG pO2 79 L Sodium Potassium Chloride Carbon Dioxide BUN Creatinine Glucose POC Glucose Lactic Acid 2.70 H* 2.80 H* Calcium Iron TIBC Total Bilirubin AST ALT Lactate Dehydrogenase Total Creatine Kinase CK-MB (CK-2) CK-MB (CK-2) Rel Index Troponin T C-Reactive Protein NT-Pro-B Natriuret Pep Total Protein Albumin HDL Cholesterol Folate Ur Specific [place] Urine WBC (Auto) Crossmatch 12/30/18 12/30/18 12/30/18 11:42 11:42 13:43 WBC RBC Hgb Hct RDW 16.4 H Plt Count 125 L Lymph % (Auto) [place] % (Auto) Lymph # [place] # Seg Neutrophils % PT INR D-Dimer Heparin Anti-Xa Level POC ABG pH 7.225 L POC ABG pCO2 54.7 H POC ABG pO2 Sodium Potassium Chloride 108.8 H Carbon Dioxide BUN Creatinine Glucose 105 H POC Glucose Lactic Acid Calcium 8.2 L Iron TIBC Total Bilirubin AST ALT Lactate Dehydrogenase Total Creatine Kinase CK-MB (CK-2) CK-MB (CK-2) Rel Index Troponin T C-Reactive Protein NT-Pro-B Natriuret Pep Total Protein Albumin HDL Cholesterol Folate Ur Specific [place] Urine WBC (Auto) Crossmatch 12/30/18 12/30/18 12/30/18 13:53 18:17 18:17 WBC RBC Hgb Hct RDW Plt Count 114 L Lymph % (Auto) [place] % (Auto) Lymph # [place] # Seg Neutrophils % PT 16.5 H INR 1.25 H D-Dimer Heparin Anti-Xa Level POC ABG pH POC ABG pCO2 POC ABG pO2 Sodium Potassium Chloride Carbon Dioxide BUN Creatinine Glucose POC Glucose Lactic Acid Calcium Iron TIBC Total Bilirubin AST ALT Lactate Dehydrogenase Total Creatine Kinase CK-MB (CK-2) CK-MB (CK-2) Rel Index Troponin T 0.060 H D C-Reactive Protein NT-Pro-B Natriuret Pep Total Protein Albumin HDL Cholesterol Folate Ur Specific [place] Urine WBC (Auto) Crossmatch 12/31/18 12/31/18 12/31/18 00:31 04:39 05:30 WBC RBC Hgb 10.9 L Hct 32.4 L RDW 16.1 H Plt Count 97 L Lymph % (Auto) [place] % (Auto) Lymph # [place] # Seg Neutrophils % PT INR D-Dimer Heparin Anti-Xa Level 0.12 L POC ABG pH 7.337 L POC ABG pCO2 POC ABG pO2 Sodium Potassium Chloride Carbon Dioxide BUN Creatinine Glucose POC Glucose Lactic Acid Calcium Iron TIBC Total Bilirubin AST ALT Lactate Dehydrogenase Total Creatine Kinase CK-MB (CK-2) CK-MB (CK-2) Rel Index Troponin T C-Reactive Protein NT-Pro-B Natriuret Pep Total Protein Albumin HDL Cholesterol Folate Ur Specific [place] Urine WBC (Auto) Crossmatch 12/31/18 12/31/18 12/31/18 05:30 16:27 18:40 WBC RBC Hgb Hct RDW Plt Count Lymph % (Auto) [place] % (Auto) Lymph # [place] # Seg Neutrophils % PT INR D-Dimer Heparin Anti-Xa Level POC ABG pH 7.246 L POC ABG pCO2 52.6 H POC ABG pO2 Sodium Potassium Chloride 110.5 H Carbon Dioxide BUN Creatinine Glucose 107 H POC Glucose 109 H Lactic Acid Calcium 8.2 L Iron TIBC Total Bilirubin 1.30 H AST ALT Lactate Dehydrogenase Total Creatine Kinase CK-MB (CK-2) CK-MB (CK-2) Rel Index Troponin T C-Reactive Protein NT-Pro-B Natriuret Pep Total Protein 5.1 L Albumin 2.3 L HDL Cholesterol Folate Ur Specific [place] Urine WBC (Auto) Crossmatch 12/31/18 01/01/19 01/01/19 21:37 03:05 04:25 WBC RBC Hgb Hct RDW Plt Count Lymph % (Auto) [place] % (Auto) Lymph # [place] # Seg Neutrophils % PT INR D-Dimer Heparin Anti-Xa Level POC ABG pH 7.278 L POC ABG pCO2 50.6 H POC ABG pO2 111 H Sodium Potassium Chloride Carbon Dioxide BUN Creatinine Glucose POC Glucose 108 H 147 H Lactic Acid Calcium Iron TIBC Total Bilirubin AST ALT Lactate Dehydrogenase Total Creatine Kinase CK-MB (CK-2) CK-MB (CK-2) Rel Index Troponin T C-Reactive Protein NT-Pro-B Natriuret Pep Total Protein Albumin HDL Cholesterol Folate Ur Specific [place] Urine WBC (Auto) Crossmatch 01/01/19 01/01/19 01/01/19 04:42 04:42 06:32 WBC 3.9 L RBC 3.54 L Hgb 10.7 L Hct 31.6 L RDW 16.3 H Plt Count 83 L Lymph % (Auto) [place] % (Auto) Lymph # [place] # Seg Neutrophils % PT INR D-Dimer Heparin Anti-Xa Level POC ABG pH POC ABG pCO2 POC ABG pO2 Sodium Potassium Chloride 109.8 H Carbon Dioxide BUN Creatinine Glucose 134 H POC Glucose 143 H Lactic Acid Calcium 8.1 L Iron TIBC Total Bilirubin AST ALT Lactate Dehydrogenase Total Creatine Kinase CK-MB (CK-2) CK-MB (CK-2) Rel Index Troponin T C-Reactive Protein NT-Pro-B Natriuret Pep Total Protein 4.9 L Albumin 2.3 L HDL Cholesterol Folate Ur Specific [place] Urine WBC (Auto) Crossmatch 01/01/19 01/01/19 01/01/19 07:33 11:37 13:55 WBC RBC Hgb Hct RDW Plt Count Lymph % (Auto) [place] % (Auto) Lymph # [place] # Seg Neutrophils % PT INR D-Dimer Heparin Anti-Xa Level POC ABG pH 7.242 L POC ABG pCO2 55.3 H POC ABG pO2 Sodium Potassium Chloride Carbon Dioxide BUN Creatinine Glucose POC Glucose 137 H 133 H Lactic Acid Calcium Iron TIBC Total Bilirubin AST ALT Lactate Dehydrogenase Total Creatine Kinase CK-MB (CK-2) CK-MB (CK-2) Rel Index Troponin T C-Reactive Protein NT-Pro-B Natriuret Pep Total Protein Albumin HDL Cholesterol Folate Ur Specific [place] Urine WBC (Auto) Crossmatch 01/01/19 01/01/19 01/01/19 15:44 16:51 21:35 WBC RBC Hgb Hct RDW Plt Count Lymph % (Auto) [place] % (Auto) Lymph # [place] # Seg Neutrophils % PT INR D-Dimer Heparin Anti-Xa Level POC ABG pH 7.298 L POC ABG pCO2 50.6 H POC ABG pO2 Sodium Potassium Chloride Carbon Dioxide BUN Creatinine Glucose POC Glucose 139 H 106 H Lactic Acid Calcium Iron TIBC Total Bilirubin AST ALT Lactate Dehydrogenase Total Creatine Kinase CK-MB (CK-2) CK-MB (CK-2) Rel Index Troponin T C-Reactive Protein NT-Pro-B Natriuret Pep Total Protein Albumin HDL Cholesterol Folate Ur Specific [place] Urine WBC (Auto) Crossmatch 01/02/19 01/02/19 01/02/19 03:13 04:40 05:09 WBC 3.9 L RBC Hgb Hct RDW 16.1 H Plt Count 94 L Lymph % (Auto) 7.5 L [place] % (Auto) 14.2 H Lymph # 0.3 L [place] # Seg Neutrophils % 76.5 H PT INR D-Dimer Heparin Anti-Xa Level POC ABG pH 7.206 L POC ABG pCO2 65.8 H POC ABG pO2 62 L Sodium Potassium Chloride Carbon Dioxide BUN Creatinine Glucose POC Glucose 124 H Lactic Acid Calcium Iron TIBC Total Bilirubin AST ALT Lactate Dehydrogenase Total Creatine Kinase CK-MB (CK-2) CK-MB (CK-2) Rel Index Troponin T C-Reactive Protein NT-Pro-B Natriuret Pep Total Protein Albumin HDL Cholesterol Folate Ur Specific [place] Urine WBC (Auto) Crossmatch 01/02/19 01/02/19 01/02/19 05:09 05:09 05:32 WBC RBC Hgb Hct RDW Plt Count Lymph % (Auto) [place] % (Auto) Lymph # [place] # Seg Neutrophils % PT INR D-Dimer Heparin Anti-Xa Level POC ABG pH POC ABG pCO2 POC ABG pO2 Sodium Potassium Chloride 107.4 H Carbon Dioxide BUN Creatinine Glucose 133 H POC Glucose 130 H Lactic Acid Calcium 8.3 L Iron 34 L TIBC 231 L Total Bilirubin AST ALT Lactate Dehydrogenase Total Creatine Kinase CK-MB (CK-2) CK-MB (CK-2) Rel Index Troponin T C-Reactive Protein NT-Pro-B Natriuret Pep Total Protein Albumin HDL Cholesterol Folate 6.01 L Ur Specific [place] Urine WBC (Auto) Crossmatch 01/02/19 01/02/19 01/02/19 10:25 11:21 11:42 WBC RBC Hgb Hct RDW Plt Count Lymph % (Auto) [place] % (Auto) Lymph # [place] # Seg Neutrophils % PT INR D-Dimer Heparin Anti-Xa Level POC ABG pH 7.318 L POC ABG pCO2 56.7 H POC ABG pO2 215 H Sodium Potassium Chloride Carbon Dioxide BUN Creatinine Glucose POC Glucose 108 H 152 H Lactic Acid Calcium Iron TIBC Total Bilirubin AST ALT Lactate Dehydrogenase Total Creatine Kinase CK-MB (CK-2) CK-MB (CK-2) Rel Index Troponin T C-Reactive Protein NT-Pro-B Natriuret Pep Total Protein Albumin HDL Cholesterol Folate Ur Specific [place] Urine WBC (Auto) Crossmatch 01/02/19 01/03/19 01/03/19 17:37 04:28 10:57 WBC RBC Hgb 11.6 L Hct RDW Plt Count 105 L Lymph % (Auto) [place] % (Auto) Lymph # [place] # Seg Neutrophils % PT INR D-Dimer Heparin Anti-Xa Level POC ABG pH POC ABG pCO2 POC ABG pO2 Sodium Potassium Chloride Carbon Dioxide BUN Creatinine Glucose 111 H POC Glucose 107 H Lactic Acid Calcium Iron TIBC Total Bilirubin AST ALT Lactate Dehydrogenase Total Creatine Kinase CK-MB (CK-2) CK-MB (CK-2) Rel Index Troponin T C-Reactive Protein NT-Pro-B Natriuret Pep Total Protein Albumin HDL Cholesterol Folate Ur Specific [place] Urine WBC (Auto) Crossmatch 01/03/19 01/03/19 01/03/19 15:16 17:33 20:35 WBC RBC Hgb Hct RDW Plt Count Lymph % (Auto) [place] % (Auto) Lymph # [place] # Seg Neutrophils % PT INR D-Dimer Heparin Anti-Xa Level POC ABG pH POC ABG pCO2 POC ABG pO2 Sodium Potassium Chloride Carbon Dioxide BUN Creatinine Glucose POC Glucose 135 H 166 H 114 H Lactic Acid Calcium Iron TIBC Total Bilirubin AST ALT Lactate Dehydrogenase Total Creatine Kinase CK-MB (CK-2) CK-MB (CK-2) Rel Index Troponin T C-Reactive Protein NT-Pro-B Natriuret Pep Total Protein Albumin HDL Cholesterol Folate Ur Specific [place] Urine WBC (Auto) Crossmatch 01/04/19 01/04/19 01/04/19 01:32 04:47 04:47 WBC 4.2 L RBC Hgb 11.5 L Hct 34.9 L RDW 15.8 H Plt Count 119 L Lymph % (Auto) [place] % (Auto) Lymph # [place] # Seg Neutrophils % PT INR D-Dimer Heparin Anti-Xa Level POC ABG pH POC ABG pCO2 POC ABG pO2 Sodium Potassium 3.3 L Chloride Carbon Dioxide BUN Creatinine Glucose 110 H POC Glucose 114 H Lactic Acid Calcium 8.3 L Iron TIBC Total Bilirubin AST ALT Lactate Dehydrogenase Total Creatine Kinase CK-MB (CK-2) CK-MB (CK-2) Rel Index Troponin T C-Reactive Protein NT-Pro-B Natriuret Pep Total Protein Albumin HDL Cholesterol Folate Ur Specific [place] Urine WBC (Auto) Crossmatch 01/04/19 01/04/19 01/04/19 08:51 11:41 16:25 WBC RBC Hgb Hct RDW Plt Count Lymph % (Auto) [place] % (Auto) Lymph # [place] # Seg Neutrophils % PT INR D-Dimer Heparin Anti-Xa Level POC ABG pH POC ABG pCO2 POC ABG pO2 Sodium Potassium Chloride Carbon Dioxide BUN Creatinine Glucose POC Glucose 122 H 146 H 142 H Lactic Acid Calcium Iron TIBC Total Bilirubin AST ALT Lactate Dehydrogenase Total Creatine Kinase CK-MB (CK-2) CK-MB (CK-2) Rel Index Troponin T C-Reactive Protein NT-Pro-B Natriuret Pep Total Protein Albumin HDL Cholesterol Folate Ur Specific [place] Urine WBC (Auto) Crossmatch 01/04/19 01/05/19 01/05/19 21:16 04:41 04:41 WBC RBC Hgb Hct RDW 15.9 H Plt Count 126 L Lymph % (Auto) [place] % (Auto) Lymph # [place] # Seg Neutrophils % PT INR D-Dimer Heparin Anti-Xa Level POC ABG pH POC ABG pCO2 POC ABG pO2 Sodium Potassium 3.4 L Chloride Carbon Dioxide BUN Creatinine Glucose 128 H POC Glucose 140 H Lactic Acid Calcium Iron TIBC Total Bilirubin AST ALT Lactate Dehydrogenase Total Creatine Kinase CK-MB (CK-2) CK-MB (CK-2) Rel Index Troponin T C-Reactive Protein NT-Pro-B Natriuret Pep Total Protein Albumin HDL Cholesterol Folate Ur Specific [place] Urine WBC (Auto) Crossmatch 01/05/19 01/05/19 08:10 11:52 WBC RBC Hgb Hct RDW Plt Count Lymph % (Auto) [place] % (Auto) Lymph # [place] # Seg Neutrophils % PT INR D-Dimer Heparin Anti-Xa Level POC ABG pH POC ABG pCO2 POC ABG pO2 Sodium Potassium Chloride Carbon Dioxide BUN Creatinine Glucose POC Glucose 134 H 178 H Lactic Acid Calcium Iron TIBC Total Bilirubin AST ALT Lactate Dehydrogenase Total Creatine Kinase CK-MB (CK-2) CK-MB (CK-2) Rel Index Troponin T C-Reactive Protein NT-Pro-B Natriuret Pep Total Protein Albumin HDL Cholesterol Folate Ur Specific [place] Urine WBC (Auto) Crossmatch Allied health notes reviewed: nursing
[2019-01-05] MEDS: ARIXTRA SUB-Q SCH ×2 (22:11)
[2019-01-06] MEDS: DUONEB *Not for PRN Use IH SCH ×4 (03:15→20:17)
[2019-01-06 05:04] LABS: Hemoglobin 12.4 gm/dl (11.8-15.2); Mean Corpuscular HGB Conc 33 % (32-34); Mean Corpuscular Volume 90 fl (84-94); Platelet Count 138 K/mm3 (140-440); Red Blood Count 4.24 M/mm3 (3.65-5.03); Red Cell Distribution Width 16.7 % (13.2-15.2)
[2019-01-06 05:08] LABS: BUN/Creatinine Ratio 11; Blood Urea Nitrogen 10 mg/dL (9-20); Calcium 8.4 mg/dL (8.4-10.2); Hemolysis Index 6
[2019-01-06] MEDS: FLAGYL 500 MG/100 ML 500 MG/100 ML BAG IV SCH ×3 (06:02→21:03)
[2019-01-06] MEDS: MAXIPIME/NS 2 GM/100 ML 2 GM/100 ML BAG IV SCH ×3 (06:03→21:03)
[2019-01-06] MEDS: KEPPRA PO SCH ×2 (10:05→21:05)
[2019-01-06] MEDS: LASIX IV SCH ×2 (10:05→17:45)
[2019-01-06] MEDS: COZAAR PO SCH (10:05)
[2019-01-06] MEDS: LOPRESSOR PO SCH ×2 (10:06→21:06)
[2019-01-06] MEDS: K-DUR PO SCH (10:06)
[2019-01-06] MEDS: PLAVIX PO SCH (10:07)
[2019-01-06] MEDS: PEPCID PO SCH ×2 (10:07→21:05)
[2019-01-06] MEDS: HumuLIN R SUB-Q SCH ×4 (10:08→21:55)
[2019-01-06 10:40] LABS: Hemoglobin 12.8 gm/dl (11.8-15.2); Mean Corpuscular HGB Conc 33 % (32-34); Mean Corpuscular Volume 88 fl (84-94); Platelet Count 164 K/mm3 (140-440); Red Blood Count 4.41 M/mm3 (3.65-5.03); Red Cell Distribution Width 16.7 % (13.2-15.2)
[2019-01-06 11:05] LABS: BUN/Creatinine Ratio 12; Blood Urea Nitrogen 12 mg/dL (9-20); Calcium 8.4 mg/dL (8.4-10.2); Hemolysis Index 15
--- NOTE | 2019-01-06 12:01 | Progress Note ---
Assessment and Plan Assessment and plan: Patient is a 73-year-old male, with mobid obesity, HTN, CAD, s/p MD, Seizure. He was admitted after spouse found him on the floor with agonal breathing 10 mins after he went to bed. EMS was called and he was transported here to the ED in respiratory distress and was intubated in the ED. CXR; right sided pleural effusion CT: no PE * Critical care, ID and cardiology consulted * Per family patient has been having 2 weeks increasing shortness of breath and also chronic bouts of hypotension * Large right sided pleural effusion noted on cxr requiring emergent chest tube placement * Concern if patient had seizure that led to being found on the floor so Neurology was consult * Appeared also septic on admission ?aspiration Acute Hypoxic Respiratory failure- s/p extubated 01/01. now on BIPAP Seizure Disorder DVT bilateral lower extremity Sepsis Right sided Pneumonia Large Right sided Pleural effusion- s/p chest tube was placed Shock syndrome questionable septic versus cardiogenic Hypokalemia Morbid Obesity Thrombocytopenia Non ST elevated MD type II Presumed ischemic cardiomyopathy status post CABG Acute metabolic encephalopathy Severe Protein calorie malnutrition Hyponatremia Hypocalcemia History of CVA 2 years ago Plan Extubated, placed on BIPAP, now on Oxygen by [place] On heparin drip, Continue current ICU care VAP and aspiration precautions Continue abx, Follow cultures, and fluid analysis from Chest tube insertion ID following Continue AED DVT/GI prophy patient pulled out peripheral iv line and Mid line night of 01/03 Pulled out right chest tube few days ago Doing better. Poss dc home with home health tomorrow. History Interval history: Patient is a 73-year-old male, with mobid obesity, HTN, CAD, s/p MD, Seizure, admitted after spouse found him on the floor with agonal breathing 10 mins after he went to bed. EMS was called and transported to the hospital in full respiratory distress and was intubated in the ED. Patient extubated 01/01, put on BIPAP , now on Oxygen by [place] No more fever x 5 days he pulled out Peripheral iv line and Mid line overnight 01/03 Pulled out right chest tube overnight 01/04 Hospitalist Physical - Physical exam Narrative exam: Gen: Not in acute distress, morbidly obese, Oxygen by NC HEENT: Normocephalic, atraumatic Neck: supple, no JVD Heart: S1 and S2 reg, no murmurs, rubs or gallop Lungs: Clear, no crackles, Abd: soft, non tender, non distended, normal BS Ext: No edema, no clubbing, no cyanosis, Neuro: Awake, alert, moves all ext, calm, - Constitutional Vitals: Temp Pulse Resp BP Pulse Ox 98.6 F 94 H 21 101/64 97 01/06/19 08:00 01/06/19 10:06 01/06/19 09:25 01/06/19 10:06 01/06/19 09:20 General appearance: Present: no acute distress, other (on BiPAP) Results - Labs CBC & Chem 7: 01/06/19 10:22 01/06/19 10:22 Labs: Laboratory Last Values WBC 5.3 K/mm3 (4.5-11.0) 01/06/19 10:22 RBC 4.41 M/mm3 (3.65-5.03) 01/06/19 10:22 Hgb 12.8 gm/dl (11.8-15.2) 01/06/19 10:22 Hct 39.0 % (35.5-45.6) 01/06/19 10:22 MCV 88 fl (84-94) 01/06/19 10:22 MCH 29 pg (28-32) 01/06/19 10:22 MCHC 33 % (32-34) 01/06/19 10:22 RDW 16.7 % (13.2-15.2) H 01/06/19 10:22 Plt Count 164 K/mm3 (140-440) 01/06/19 10:22 Lymph % (Auto) 7.5 % (13.4-35.0) L 01/02/19 05:09 [place] % (Auto) 14.2 % (0.0-7.3) H 01/02/19 05:09 Eos % (Auto) 1.3 % (0.0-4.3) 01/02/19 05:09 Baso % (Auto) 0.5 % (0.0-1.8) 01/02/19 05:09 Lymph # 0.3 K/mm3 (1.2-5.4) L 01/02/19 05:09 [place] # 0.6 K/mm3 (0.0-0.8) 01/02/19 05:09 Eos # 0.1 K/mm3 (0.0-0.4) 01/02/19 05:09 Baso # 0.0 K/mm3 (0.0-0.1) 01/02/19 05:09 Seg Neutrophils % 76.5 % (40.0-70.0) H 01/02/19 05:09 Seg Neutrophils # 3.0 K/mm3 (1.8-7.7) 01/02/19 05:09 PT 16.5 Sec. (12.2-14.9) H 12/30/18 18:17 INR 1.25 (0.87-1.13) H 12/30/18 18:17 APTT 33.1 Sec. (24.2-36.6) 12/30/18 18:17 D-Dimer 815.50 ng/mlDDU (0-234) H 12/28/18 23:58 Heparin Anti-Xa Level 0.70 U.I./ml (0.3-0.7) 01/02/19 05:09 POC ABG pH 7.318 (7.35-7.45) L 01/02/19 11:21 POC ABG pCO2 56.7 (35-45) H 01/02/19 11:21 POC ABG pO2 215 (80-105) H 01/02/19 11:21 POC ABG HCO3 29.1 (22-26 mml/L) 01/02/19 11:21 POC ABG Total CO2 31 (23-27mmol/L) 01/02/19 11:21 POC ABG O2 Sat 100 01/02/19 11:21 POC ABG Base Excess 3 ((-2) - (+3)mmol/L) 01/02/19 11:21 FiO2 60 % 01/02/19 11:21 Sodium 144 mmol/L (137-145) 01/06/19 10:22 Potassium 3.5 mmol/L (3.6-5.0) L 01/06/19 10:22 Chloride 105.3 mmol/L (98-107) 01/06/19 10:22 Carbon Dioxide 29 mmol/L (22-30) 01/06/19 10:22 Anion Gap 13 mmol/L 01/06/19 10:22 BUN 12 mg/dL (9-20) 01/06/19 10:22 Creatinine 1.0 mg/dL (0.8-1.5) 01/06/19 10:22 Estimated GFR > 60 ml/min 01/06/19 10:22 BUN/Creatinine Ratio 12 % 01/06/19 10:22 Glucose 151 mg/dL (75-100) H 01/06/19 10:22 POC Glucose 148 (70-105) H 01/06/19 11:51 Lactic Acid 1.50 mmol/L (0.7-2.0) 12/30/18 11:42 Calcium 8.4 mg/dL (8.4-10.2) 01/06/19 10:22 Magnesium 1.90 mg/dL (1.7-2.3) 01/06/19 00:14 Iron 34 ug/dL (49-181) L 01/02/19 05:09 TIBC 231 mcg/dL (250-450) L 01/02/19 05:09 Ferritin 163.3 ng/mL (13.0-400.0) 01/02/19 05:09 Total Bilirubin 0.60 mg/dL (0.1-1.2) 01/01/19 04:42 AST 23 units/L (5-40) 01/01/19 04:42 ALT 10 units/L (7-56) 01/01/19 04:42 Alkaline Phosphatase 53 units/L (35-129) 01/01/19 04:42 Lactate Dehydrogenase 405 units/L (91-180) H 12/29/18 15:02 Total Creatine Kinase 837 units/L (55-170) H 12/29/18 12:51 CK-MB (CK-2) 10.5 ng/mL (0.0-4.0) H 12/29/18 12:51 CK-MB (CK-2) Rel Index 1.2 (0-4) 12/29/18 12:51 Troponin T 0.060 ng/mL (0.00-0.029) H D 12/30/18 13:53 C-Reactive Protein 2.80 mg/dL (0.00-1.30) H 12/29/18 16:46 NT-Pro-B Natriuret Pep 1209 pg/mL (0-900) H 12/28/18 23:58 Total Protein 4.9 g/dL (6.3-8.2) L 01/01/19 04:42 Albumin 2.3 g/dL (3.9-5) L 01/01/19 04:42 Albumin/Globulin Ratio 0.9 % 01/01/19 04:42 Triglycerides 113 mg/dL (2-149) 12/29/18 08:34 Cholesterol 120 mg/dL (50-199) 12/29/18 08:34 LDL Cholesterol Direct 82 mg/dL (50-130) 12/29/18 08:34 HDL Cholesterol 34 mg/dL (40-59) L 12/29/18 08:34 Cholesterol/HDL Ratio 3.52 % 12/29/18 08:34 Vitamin B12 365.3 pg/mL (211-911) 01/02/19 05:09 Folate 6.01 ng/mL (7.3-26.0) L 01/02/19 05:09 Urine Color [place] (Yellow) 12/29/18 03:00 Urine Turbidity Cloudy (Clear) 12/29/18 03:00 Urine pH 5.0 (5.0-7.0) 12/29/18 03:00 Ur Specific [place] 1.033 (1.003-1.030) H 12/29/18 03:00 Urine Protein >500 mg/dL (Negative) 12/29/18 03:00 Urine Glucose (UA) 150 mg/dL (Negative) 12/29/18 03:00 Urine Ketones Neg mg/dL (Negative) 12/29/18 03:00 Urine Blood Mod (Negative) 12/29/18 03:00 Urine Nitrite Neg (Negative) 12/29/18 03:00 Urine Bilirubin Neg (Negative) 12/29/18 03:00 Urine Urobilinogen < 2.0 mg/dL (<2.0) 12/29/18 03:00 Ur Leukocyte Esterase Neg (Negative) 12/29/18 03:00 Urine WBC (Auto) 31.0 /HPF (0.0-6.0) H 12/29/18 03:00 Urine RBC (Auto) 27.0 /HPF (0.0-6.0) 12/29/18 03:00 U Epithel Cells (Auto) 4.0 /HPF (0-13.0) 12/29/18 03:00 Urine Bacteria (Auto) 4+ /HPF (Negative) 12/29/18 03:00 Urine Mucus 3+ /HPF 12/29/18 03:00 Urine Opiates Screen Presumptive negative 12/29/18 03:00 Urine Methadone Screen Presumptive negative 12/29/18 03:00 Ur Barbiturates Screen Presumptive negative 12/29/18 03:00 Ur Phencyclidine Scrn Presumptive negative 12/29/18 03:00 Ur Amphetamines Screen Presumptive negative 12/29/18 03:00 U Benzodiazepines Scrn Presumptive negative 12/29/18 03:00 Urine Cocaine Screen Presumptive negative 12/29/18 03:00 U Marijuana (THC) Screen Presumptive negative 12/29/18 03:00 Drugs of Abuse Note Disclamer 12/29/18 03:00 Urine Legionella Ag Not detected (Not Detected) 12/31/18 05:30 Blood Type O POSITIVE 12/29/18 01:53 Antibody Screen Negative 12/29/18 01:53 Crossmatch See Detail 12/29/18 01:53 Active Medications - Current Medications Current Medications: Generic Name Dose Route Start Last Admin Trade Name Freq PRN Reason Stop Dose Admin Acetaminophen 650 mg 12/29/18 04:49 12/30/18 08:33 Tylenol DE 650 mg Q4H PRN Administration Fever >101 Albuterol/Ipratropium 1 ampul 01/01/19 14:00 01/06/19 09:15 Duoneb *Not For Prn Use* IH 1 ampul Q6HRT WENDY Administration Atorvastatin Calcium 40 mg 01/04/19 22:00 01/05/19 22:10 Lipitor PO 40 mg QHS WENDY Administration Clopidogrel Bisulfate 75 mg 01/05/19 10:00 01/06/19 10:07 Plavix PO 75 mg DAILY WENDY Administration Dextrose 50 ml 12/29/18 04:47 D50w (25gm) Syringe IV PRN PRN Hypoglycemia Famotidine 20 mg 01/04/19 10:00 01/06/19 10:07 Pepcid PO 20 mg BID WENDY Administration Folic Acid 1 mg 01/06/19 12:00 Folvite PO QDAY WENDY Fondaparinux 7.5 mg 01/01/19 22:00 01/05/19 22:11 Arixtra SUB-Q 7.5 mg Q24H WENDY Administration Fondaparinux 2.5 mg 01/01/19 22:00 01/05/19 22:11 Arixtra SUB-Q 2.5 mg Q24H WENDY Administration Furosemide 20 mg 01/01/19 14:00 01/06/19 10:05 Lasix IV 20 mg QDAY WENDY Administration Hydralazine HCl 10 mg 01/01/19 13:23 Apresoline IV Q4HR PRN SBP >/=170 Metronidazole 500 mg in 100 mls @ 100 mls/hr 12/30/18 14:00 01/06/19 06:02 Flagyl 500 Mg/100 Ml IV 01/08/19 13:59 100 mls/hr Q8HR WENDY Administration Protocol Cefepime HCl 2 gm in 100 mls @ 200 mls/hr 12/31/18 14:00 01/06/19 06:03 Maxipime/Ns 2 Gm/100 Ml IV 01/08/19 13:59 200 mls/hr Q8HR WENDY Administration Protocol Insulin Human Regular 0 units 01/04/19 11:30 01/06/19 10:08 Humulin R SUB-Q Not Given ACHS WENDY Protocol Levetiracetam 500 mg 01/04/19 10:00 01/06/19 10:05 Keppra PO 500 mg BID WENDY Administration Losartan Potassium 50 mg 01/04/19 11:00 01/06/19 10:05 Cozaar PO 50 mg DAILY WENDY Administration Metoprolol Tartrate 12.5 mg 01/03/19 11:00 01/06/19 10:06 Lopressor PO 12.5 mg BID WENDY Administration Ondansetron HCl 4 mg 12/29/18 04:49 Zofran IV Q8H PRN Nausea And Vomiting Nutrition/Malnutrition Assess - Dietary Evaluation Nutrition/Malnutrition Findings: Nutrition Notes Start: 12/31/18 14:59 Freq: Status: Active Protocol: Document 01/04/19 11:21 CP (Rec: 01/04/19 11:27 CP [id number]) Co-Sign 01/04/19 11:21 LP Nutrition Notes Initial or Follow up Reassessment Current Diagnosis Coronary Artery Disease, Diabetes,Hypertension, Respiratory Failure Other Pertinent Diagnosis (R) lung effusion Current Diet Cardiac/consistent carbohydrate Labs/Tests K: 3.3 Glu: 122 Pertinent Medications Reviewed Height 5 ft 9 in Weight 145 kg [place] Body Weight (kg) 72.72 BMI 47.2 Weight Status Morbidly Obese Subjective/Other Information Pt stated that his appetite was "not good" and that he consumed 0% of his meal this morning. Pt was open to ONS. Percent of energy/protein needs met: 0%/0% Burn Absent Trauma Absent #1 Nutrition Diagnosis Inadequate oral intake As Evidenced by Signs and Symptoms Pt consuming 0% of breakfast Diagnosis Progress(for reassessment Continues documentation) Is patient on ventilator? No Is Patient Ambulatory and/or Out of Bed No REE-([facility]-confined to bed) 2615.916 Kcal/Kg value to use for calculation 11 Approximate Energy Requirements Using 1595 kcal/Kg Additional Notes Pro needs:72-87g/day (1-1.2g/ kg IBW: 182g/day) Fluid needs 1ml/kcal Nutrition Intervention Change Diet Order: Continue current of per MD request Nutrition Support: D/C Add Supplement/Snack (indicate name/kcal Glucerna [place] daily /protein ) Provides kCal: 220 Provides Protein (gm) 10 Goal #1 PO/ONS intake to meet at least 75% of energy and protein needs Anticipated Discharge Needs: Cardiac/consistent carbohydrate Follow-Up By: 01/07/19 Additional Comments F/U: PO/ONS intakes
--- NOTE | 2019-01-06 15:09 | Progress Note ---
Assessment and Plan Acute hypoxemic hypercapnic respiratory failure, on mechanical ventilation support. Bilateral pleural effusions, complex looking on the right. Right lung complete atelectasis. Right pneumonia, appears to be community-acquired. Severe sepsis with shock, on Levophed. Anemia that is normocytic present at presentation; however, I think that may be an abnormal lab value. Hypokalemia at presentation that may also be an abnormal lab value. Hypocalcemia at presentation that may also be abnormal lab value. Morbid obesity. History of diabetes. History of hypertension. Restless legs syndrome. Elevated D-dimer - repeat US thoracentesis and send for studies again - will repeat CT chest re: ? RLL pleural lesion - continue Arixtra for VTE - continue BIPAP qhs - continue scheduled lasix 20 mg IV daily - cardiology evaluation ongoing (input appreciated) - continue bronchodilators with pulmonary hygiene per RT - continue to wean supplemental oxygen to keep O2 sats 88-90% acutely - ID input appreciated - continue Stress ulcer prophylaxis - ST evaluation and advance diet - resume chronic home medications per attending - continue accuchecks with glycemic control for target glucose of 140-180 mg/dL - Maintenance of sleep-wake cycle - Mobility protocol as tolerated by hemodynamics for pressure ulcer prophylaxis - Influenza and pneumonia vaccination per protocol .... re-evaluate in am & prn Subjective Date of service: 01/06/19 Principal diagnosis: Acute resp failure, NSTEMI 2, R pleural effusion, Acute himanshu LE DVT, CAD Interval history: Patient is seen today for: Acute hypoxemic hypercapnic respiratory failure on MVS; Bilateral pleural effusions, complex looking on the right; Right lung complete atelectasis; Right pneumonia (appears to be community-acquired); Severe sepsis with shock, on Levophed Seen and examined at bedside; 24hour events reviewed; nursing and respiratory care staff consulted; no adverse overnight events reported to me; resting peacefully in bed; denies acute chest pains or palpitations; remains on supplemental oxygen Objective Vital Signs - 12hr 01/06/19 01/06/19 01/06/19 03:15 03:30 04:00 Temperature 98.4 F Pulse Rate Pulse Rate [ Anterior Bilateral Throughout] Pulse Rate [ 99 H 101 H Bilateral] Pulse Rate [ 82 Right Dorsalis Pedis] Respiratory 27 H Rate Respiratory Rate [Anterior Bilateral Throughout] Respiratory 18 18 Rate [Bilateral ] Blood Pressure O2 Sat by Pulse 97 Oximetry 01/06/19 01/06/19 01/06/19 08:00 09:15 09:20 Temperature 98.6 F Pulse Rate Pulse Rate [ 95 H Anterior Bilateral Throughout] Pulse Rate [ 95 H Bilateral] Pulse Rate [ Right Dorsalis Pedis] Respiratory Rate Respiratory 18 Rate [Anterior Bilateral Throughout] Respiratory 18 Rate [Bilateral ] Blood Pressure O2 Sat by Pulse 97 Oximetry 01/06/19 01/06/19 01/06/19 09:25 10:05 10:06 Temperature Pulse Rate 95 H 94 H Pulse Rate [ 97 H Anterior Bilateral Throughout] Pulse Rate [ 97 H Bilateral] Pulse Rate [ Right Dorsalis Pedis] Respiratory Rate Respiratory 21 Rate [Anterior Bilateral Throughout] Respiratory 21 Rate [Bilateral ] Blood Pressure 101/64 101/64 O2 Sat by Pulse Oximetry 01/06/19 01/06/19 01/06/19 12:00 14:35 14:50 Temperature 98.3 F Pulse Rate Pulse Rate [ 81 77 Anterior Bilateral Throughout] Pulse Rate [ 81 77 Bilateral] Pulse Rate [ Right Dorsalis Pedis] Respiratory Rate Respiratory 18 20 Rate [Anterior Bilateral Throughout] Respiratory 18 20 Rate [Bilateral ] Blood Pressure O2 Sat by Pulse Oximetry Constitutional: alert, appears uncomfortable, other (elderly looking morbidly obese CM normocephalic and withmildly increased work of breathing at rest) Eyes: non-icteric ENT: oropharynx moist Neck: supple, no lymphadenopathy, no JVD, other (large neck circumference) Effort: mildly labored Ascultation: Bilateral: diminished breath sounds, rhonchi (bases) Percussion: Bilateral: not dull Cardiovascular: regular rate and rhythm, other (No R/M) Gastrointestinal: normoactive bowel sounds, soft, non-tender, non-distended Integumentary: normal Extremities: no cyanosis, pink and warm, pulses normal, no ischemia or petechiae, edema (1+) Neurologic: normal mental status, non-focal exam (grossly), pupils equal and round, CN II-XII normal, motor strength normal and Psychiatric: mood appropriate, affect normal CBC and BMP: 01/11/19 04:09 01/11/19 04:09 ABG, PT/INR, D-dimer: ABG POC ABG pH 7.318 (7.35-7.45) L 01/02/19 11:21 POC ABG pCO2 56.7 (35-45) H 01/02/19 11:21 POC ABG pO2 215 (80-105) H 01/02/19 11:21 POC ABG HCO3 29.1 (22-26 mml/L) 01/02/19 11:21 POC ABG Total CO2 31 (23-27mmol/L) 01/02/19 11:21 POC ABG O2 Sat 100 01/02/19 11:21 PT/INR, D-dimer PT 16.5 Sec. (12.2-14.9) H 12/30/18 18:17 INR 1.25 (0.87-1.13) H 12/30/18 18:17 D-Dimer 815.50 ng/mlDDU (0-234) H 12/28/18 23:58 Abnormal lab findings: Abnormal Labs 12/28/18 12/28/18 12/28/18 23:58 23:58 23:58 WBC RBC 2.24 L Hgb 6.7 L Hct 20.9 L RDW 16.4 H Plt Count 99 L Lymph % (Auto) 10.7 L [place] % (Auto) 7.9 H Lymph # 0.6 L [place] # Seg Neutrophils % 80.7 H PT INR D-Dimer 815.50 H Heparin Anti-Xa Level POC ABG pH POC ABG pCO2 POC ABG pO2 Sodium 148 H Potassium 2.3 L* Chloride 128.4 H Carbon Dioxide 12 L BUN Creatinine 0.4 L Glucose POC Glucose Lactic Acid Calcium 5.0 L* Iron TIBC Total Bilirubin AST ALT < 5 L Lactate Dehydrogenase Total Creatine Kinase 44 L CK-MB (CK-2) CK-MB (CK-2) Rel Index 4.3 H Troponin T C-Reactive Protein NT-Pro-B Natriuret Pep Total Protein 2.3 L Albumin 1.1 L HDL Cholesterol Folate Ur Specific [place] Urine WBC (Auto) Crossmatch 12/28/18 12/29/18 12/29/18 23:58 00:27 01:53 WBC RBC Hgb Hct RDW Plt Count Lymph % (Auto) [place] % (Auto) Lymph # [place] # Seg Neutrophils % PT INR D-Dimer Heparin Anti-Xa Level POC ABG pH 7.169 L POC ABG pCO2 POC ABG pO2 Sodium Potassium Chloride Carbon Dioxide BUN Creatinine Glucose POC Glucose Lactic Acid Calcium Iron TIBC Total Bilirubin AST ALT Lactate Dehydrogenase Total Creatine Kinase CK-MB (CK-2) CK-MB (CK-2) Rel Index Troponin T C-Reactive Protein NT-Pro-B Natriuret Pep 1209 H Total Protein Albumin HDL Cholesterol Folate Ur Specific [place] Urine WBC (Auto) Crossmatch See Detail 12/29/18 12/29/18 12/29/18 03:00 05:02 08:34 WBC RBC Hgb Hct RDW Plt Count Lymph % (Auto) [place] % (Auto) Lymph # [place] # Seg Neutrophils % PT INR D-Dimer Heparin Anti-Xa Level POC ABG pH 7.225 L POC ABG pCO2 57.9 H POC ABG pO2 Sodium Potassium Chloride Carbon Dioxide BUN Creatinine Glucose POC Glucose Lactic Acid Calcium Iron TIBC Total Bilirubin AST ALT Lactate Dehydrogenase Total Creatine Kinase 344 H CK-MB (CK-2) 7.9 H CK-MB (CK-2) Rel Index Troponin T 0.103 H* D C-Reactive Protein NT-Pro-B Natriuret Pep Total Protein Albumin HDL Cholesterol 34 L Folate Ur Specific Royal 1.033 H Urine WBC (Auto) 31.0 H Crossmatch 12/29/18 12/29/18 12/29/18 08:34 08:53 12:51 WBC RBC Hgb Hct RDW Plt Count Lymph % (Auto) [place] % (Auto) Lymph # [place] # Seg Neutrophils % PT INR D-Dimer Heparin Anti-Xa Level POC ABG pH POC ABG pCO2 POC ABG pO2 Sodium Potassium 5.7 H D Chloride Carbon Dioxide BUN 21 H Creatinine Glucose 124 H POC Glucose 119 H Lactic Acid Calcium Iron TIBC Total Bilirubin AST ALT Lactate Dehydrogenase Total Creatine Kinase 837 H CK-MB (CK-2) 10.5 H CK-MB (CK-2) Rel Index Troponin T 0.084 H C-Reactive Protein NT-Pro-B Natriuret Pep Total Protein Albumin HDL Cholesterol Folate Ur Specific [place] Urine WBC (Auto) Crossmatch 12/29/18 12/29/18 12/29/18 12:51 12:51 15:02 WBC RBC Hgb Hct RDW 16.0 H Plt Count Lymph % (Auto) [place] % (Auto) 13.3 H Lymph # [place] # 1.4 H Seg Neutrophils % PT INR D-Dimer Heparin Anti-Xa Level POC ABG pH POC ABG pCO2 POC ABG pO2 Sodium Potassium 5.4 H Chloride Carbon Dioxide 19 L 17 L BUN 21 H 21 H Creatinine Glucose 116 H 115 H POC Glucose Lactic Acid Calcium Iron TIBC Total Bilirubin 1.50 H AST 43 H ALT Lactate Dehydrogenase 405 H Total Creatine Kinase CK-MB (CK-2) CK-MB (CK-2) Rel Index Troponin T C-Reactive Protein NT-Pro-B Natriuret Pep Total Protein 6.2 L D Albumin 3.1 L HDL Cholesterol Folate Ur Specific [place] Urine WBC (Auto) Crossmatch 12/29/18 12/29/18 12/29/18 15:03 16:46 16:46 WBC RBC Hgb Hct RDW Plt Count Lymph % (Auto) [place] % (Auto) Lymph # [place] # Seg Neutrophils % PT INR D-Dimer Heparin Anti-Xa Level POC ABG pH POC ABG pCO2 POC ABG pO2 Sodium Potassium Chloride Carbon Dioxide BUN Creatinine Glucose POC Glucose 121 H Lactic Acid 2.70 H* Calcium Iron TIBC Total Bilirubin AST ALT Lactate Dehydrogenase Total Creatine Kinase CK-MB (CK-2) CK-MB (CK-2) Rel Index Troponin T C-Reactive Protein 2.80 H NT-Pro-B Natriuret Pep Total Protein Albumin HDL Cholesterol Folate Ur Specific [place] Urine WBC (Auto) Crossmatch 12/29/18 12/29/18 12/29/18 16:50 17:37 19:37 WBC RBC Hgb Hct RDW Plt Count Lymph % (Auto) [place] % (Auto) Lymph # [place] # Seg Neutrophils % PT INR D-Dimer Heparin Anti-Xa Level POC ABG pH POC ABG pCO2 POC ABG pO2 248 H Sodium Potassium Chloride Carbon Dioxide 21 L BUN 21 H Creatinine Glucose 123 H POC Glucose 113 H Lactic Acid Calcium Iron TIBC Total Bilirubin AST ALT Lactate Dehydrogenase Total Creatine Kinase CK-MB (CK-2) CK-MB (CK-2) Rel Index Troponin T C-Reactive Protein NT-Pro-B Natriuret Pep Total Protein Albumin HDL Cholesterol Folate Ur Specific [place] Urine WBC (Auto) Crossmatch 12/29/18 12/29/18 12/30/18 20:10 21:36 04:43 WBC RBC Hgb Hct RDW Plt Count Lymph % (Auto) [place] % (Auto) Lymph # [place] # Seg Neutrophils % PT INR D-Dimer Heparin Anti-Xa Level POC ABG pH 7.327 L POC ABG pCO2 POC ABG pO2 79 L Sodium Potassium Chloride Carbon Dioxide BUN Creatinine Glucose POC Glucose Lactic Acid 2.70 H* 2.80 H* Calcium Iron TIBC Total Bilirubin AST ALT Lactate Dehydrogenase Total Creatine Kinase CK-MB (CK-2) CK-MB (CK-2) Rel Index Troponin T C-Reactive Protein NT-Pro-B Natriuret Pep Total Protein Albumin HDL Cholesterol Folate Ur Specific [place] Urine WBC (Auto) Crossmatch 12/30/18 12/30/18 12/30/18 11:42 11:42 13:43 WBC RBC Hgb Hct RDW 16.4 H Plt Count 125 L Lymph % (Auto) [place] % (Auto) Lymph # [place] # Seg Neutrophils % PT INR D-Dimer Heparin Anti-Xa Level POC ABG pH 7.225 L POC ABG pCO2 54.7 H POC ABG pO2 Sodium Potassium Chloride 108.8 H Carbon Dioxide BUN Creatinine Glucose 105 H POC Glucose Lactic Acid Calcium 8.2 L Iron TIBC Total Bilirubin AST ALT Lactate Dehydrogenase Total Creatine Kinase CK-MB (CK-2) CK-MB (CK-2) Rel Index Troponin T C-Reactive Protein NT-Pro-B Natriuret Pep Total Protein Albumin HDL Cholesterol Folate Ur Specific [place] Urine WBC (Auto) Crossmatch 12/30/18 12/30/18 12/30/18 13:53 18:17 18:17 WBC RBC Hgb Hct RDW Plt Count 114 L Lymph % (Auto) [place] % (Auto) Lymph # [place] # Seg Neutrophils % PT 16.5 H INR 1.25 H D-Dimer Heparin Anti-Xa Level POC ABG pH POC ABG pCO2 POC ABG pO2 Sodium Potassium Chloride Carbon Dioxide BUN Creatinine Glucose POC Glucose Lactic Acid Calcium Iron TIBC Total Bilirubin AST ALT Lactate Dehydrogenase Total Creatine Kinase CK-MB (CK-2) CK-MB (CK-2) Rel Index Troponin T 0.060 H D C-Reactive Protein NT-Pro-B Natriuret Pep Total Protein Albumin HDL Cholesterol Folate Ur Specific [place] Urine WBC (Auto) Crossmatch 12/31/18 12/31/18 12/31/18 00:31 04:39 05:30 WBC RBC Hgb 10.9 L Hct 32.4 L RDW 16.1 H Plt Count 97 L Lymph % (Auto) [place] % (Auto) Lymph # [place] # Seg Neutrophils % PT INR D-Dimer Heparin Anti-Xa Level 0.12 L POC ABG pH 7.337 L POC ABG pCO2 POC ABG pO2 Sodium Potassium Chloride Carbon Dioxide BUN Creatinine Glucose POC Glucose Lactic Acid Calcium Iron TIBC Total Bilirubin AST ALT Lactate Dehydrogenase Total Creatine Kinase CK-MB (CK-2) CK-MB (CK-2) Rel Index Troponin T C-Reactive Protein NT-Pro-B Natriuret Pep Total Protein Albumin HDL Cholesterol Folate Ur Specific [place] Urine WBC (Auto) Crossmatch 12/31/18 12/31/18 12/31/18 05:30 16:27 18:40 WBC RBC Hgb Hct RDW Plt Count Lymph % (Auto) [place] % (Auto) Lymph # [place] # Seg Neutrophils % PT INR D-Dimer Heparin Anti-Xa Level POC ABG pH 7.246 L POC ABG pCO2 52.6 H POC ABG pO2 Sodium Potassium Chloride 110.5 H Carbon Dioxide BUN Creatinine Glucose 107 H POC Glucose 109 H Lactic Acid Calcium 8.2 L Iron TIBC Total Bilirubin 1.30 H AST ALT Lactate Dehydrogenase Total Creatine Kinase CK-MB (CK-2) CK-MB (CK-2) Rel Index Troponin T C-Reactive Protein NT-Pro-B Natriuret Pep Total Protein 5.1 L Albumin 2.3 L HDL Cholesterol Folate Ur Specific [place] Urine WBC (Auto) Crossmatch 12/31/18 01/01/19 01/01/19 21:37 03:05 04:25 WBC RBC Hgb Hct RDW Plt Count Lymph % (Auto) [place] % (Auto) Lymph # [place] # Seg Neutrophils % PT INR D-Dimer Heparin Anti-Xa Level POC ABG pH 7.278 L POC ABG pCO2 50.6 H POC ABG pO2 111 H Sodium Potassium Chloride Carbon Dioxide BUN Creatinine Glucose POC Glucose 108 H 147 H Lactic Acid Calcium Iron TIBC Total Bilirubin AST ALT Lactate Dehydrogenase Total Creatine Kinase CK-MB (CK-2) CK-MB (CK-2) Rel Index Troponin T C-Reactive Protein NT-Pro-B Natriuret Pep Total Protein Albumin HDL Cholesterol Folate Ur Specific [place] Urine WBC (Auto) Crossmatch 01/01/19 01/01/19 01/01/19 04:42 04:42 06:32 WBC 3.9 L RBC 3.54 L Hgb 10.7 L Hct 31.6 L RDW 16.3 H Plt Count 83 L Lymph % (Auto) [place] % (Auto) Lymph # [place] # Seg Neutrophils % PT INR D-Dimer Heparin Anti-Xa Level POC ABG pH POC ABG pCO2 POC ABG pO2 Sodium Potassium Chloride 109.8 H Carbon Dioxide BUN Creatinine Glucose 134 H POC Glucose 143 H Lactic Acid Calcium 8.1 L Iron TIBC Total Bilirubin AST ALT Lactate Dehydrogenase Total Creatine Kinase CK-MB (CK-2) CK-MB (CK-2) Rel Index Troponin T C-Reactive Protein NT-Pro-B Natriuret Pep Total Protein 4.9 L Albumin 2.3 L HDL Cholesterol Folate Ur Specific [place] Urine WBC (Auto) Crossmatch 01/01/19 01/01/19 01/01/19 07:33 11:37 13:55 WBC RBC Hgb Hct RDW Plt Count Lymph % (Auto) [place] % (Auto) Lymph # [place] # Seg Neutrophils % PT INR D-Dimer Heparin Anti-Xa Level POC ABG pH 7.242 L POC ABG pCO2 55.3 H POC ABG pO2 Sodium Potassium Chloride Carbon Dioxide BUN Creatinine Glucose POC Glucose 137 H 133 H Lactic Acid Calcium Iron TIBC Total Bilirubin AST ALT Lactate Dehydrogenase Total Creatine Kinase CK-MB (CK-2) CK-MB (CK-2) Rel Index Troponin T C-Reactive Protein NT-Pro-B Natriuret Pep Total Protein Albumin HDL Cholesterol Folate Ur Specific [place] Urine WBC (Auto) Crossmatch 01/01/19 01/01/19 01/01/19 15:44 16:51 21:35 WBC RBC Hgb Hct RDW Plt Count Lymph % (Auto) [place] % (Auto) Lymph # [place] # Seg Neutrophils % PT INR D-Dimer Heparin Anti-Xa Level POC ABG pH 7.298 L POC ABG pCO2 50.6 H POC ABG pO2 Sodium Potassium Chloride Carbon Dioxide BUN Creatinine Glucose POC Glucose 139 H 106 H Lactic Acid Calcium Iron TIBC Total Bilirubin AST ALT Lactate Dehydrogenase Total Creatine Kinase CK-MB (CK-2) CK-MB (CK-2) Rel Index Troponin T C-Reactive Protein NT-Pro-B Natriuret Pep Total Protein Albumin HDL Cholesterol Folate Ur Specific [place] Urine WBC (Auto) Crossmatch 01/02/19 01/02/19 01/02/19 03:13 04:40 05:09 WBC 3.9 L RBC Hgb Hct RDW 16.1 H Plt Count 94 L Lymph % (Auto) 7.5 L [place] % (Auto) 14.2 H Lymph # 0.3 L [place] # Seg Neutrophils % 76.5 H PT INR D-Dimer Heparin Anti-Xa Level POC ABG pH 7.206 L POC ABG pCO2 65.8 H POC ABG pO2 62 L Sodium Potassium Chloride Carbon Dioxide BUN Creatinine Glucose POC Glucose 124 H Lactic Acid Calcium Iron TIBC Total Bilirubin AST ALT Lactate Dehydrogenase Total Creatine Kinase CK-MB (CK-2) CK-MB (CK-2) Rel Index Troponin T C-Reactive Protein NT-Pro-B Natriuret Pep Total Protein Albumin HDL Cholesterol Folate Ur Specific [place] Urine WBC (Auto) Crossmatch 01/02/19 01/02/19 01/02/19 05:09 05:09 05:32 WBC RBC Hgb Hct RDW Plt Count Lymph % (Auto) [place] % (Auto) Lymph # [place] # Seg Neutrophils % PT INR D-Dimer Heparin Anti-Xa Level POC ABG pH POC ABG pCO2 POC ABG pO2 Sodium Potassium Chloride 107.4 H Carbon Dioxide BUN Creatinine Glucose 133 H POC Glucose 130 H Lactic Acid Calcium 8.3 L Iron 34 L TIBC 231 L Total Bilirubin AST ALT Lactate Dehydrogenase Total Creatine Kinase CK-MB (CK-2) CK-MB (CK-2) Rel Index Troponin T C-Reactive Protein NT-Pro-B Natriuret Pep Total Protein Albumin HDL Cholesterol Folate 6.01 L Ur Specific [place] Urine WBC (Auto) Crossmatch 01/02/19 01/02/19 01/02/19 10:25 11:21 11:42 WBC RBC Hgb Hct RDW Plt Count Lymph % (Auto) [place] % (Auto) Lymph # [place] # Seg Neutrophils % PT INR D-Dimer Heparin Anti-Xa Level POC ABG pH 7.318 L POC ABG pCO2 56.7 H POC ABG pO2 215 H Sodium Potassium Chloride Carbon Dioxide BUN Creatinine Glucose POC Glucose 108 H 152 H Lactic Acid Calcium Iron TIBC Total Bilirubin AST ALT Lactate Dehydrogenase Total Creatine Kinase CK-MB (CK-2) CK-MB (CK-2) Rel Index Troponin T C-Reactive Protein NT-Pro-B Natriuret Pep Total Protein Albumin HDL Cholesterol Folate Ur Specific [place] Urine WBC (Auto) Crossmatch 01/02/19 01/03/19 01/03/19 17:37 04:28 10:57 WBC RBC Hgb 11.6 L Hct RDW Plt Count 105 L Lymph % (Auto) [place] % (Auto) Lymph # [place] # Seg Neutrophils % PT INR D-Dimer Heparin Anti-Xa Level POC ABG pH POC ABG pCO2 POC ABG pO2 Sodium Potassium Chloride Carbon Dioxide BUN Creatinine Glucose 111 H POC Glucose 107 H Lactic Acid Calcium Iron TIBC Total Bilirubin AST ALT Lactate Dehydrogenase Total Creatine Kinase CK-MB (CK-2) CK-MB (CK-2) Rel Index Troponin T C-Reactive Protein NT-Pro-B Natriuret Pep Total Protein Albumin HDL Cholesterol Folate Ur Specific [place] Urine WBC (Auto) Crossmatch 01/03/19 01/03/19 01/03/19 15:16 17:33 20:35 WBC RBC Hgb Hct RDW Plt Count Lymph % (Auto) [place] % (Auto) Lymph # [place] # Seg Neutrophils % PT INR D-Dimer Heparin Anti-Xa Level POC ABG pH POC ABG pCO2 POC ABG pO2 Sodium Potassium Chloride Carbon Dioxide BUN Creatinine Glucose POC Glucose 135 H 166 H 114 H Lactic Acid Calcium Iron TIBC Total Bilirubin AST ALT Lactate Dehydrogenase Total Creatine Kinase CK-MB (CK-2) CK-MB (CK-2) Rel Index Troponin T C-Reactive Protein NT-Pro-B Natriuret Pep Total Protein Albumin HDL Cholesterol Folate Ur Specific [place] Urine WBC (Auto) Crossmatch 01/04/19 01/04/19 01/04/19 01:32 04:47 04:47 WBC 4.2 L RBC Hgb 11.5 L Hct 34.9 L RDW 15.8 H Plt Count 119 L Lymph % (Auto) [place] % (Auto) Lymph # [place] # Seg Neutrophils % PT INR D-Dimer Heparin Anti-Xa Level POC ABG pH POC ABG pCO2 POC ABG pO2 Sodium Potassium 3.3 L Chloride Carbon Dioxide BUN Creatinine Glucose 110 H POC Glucose 114 H Lactic Acid Calcium 8.3 L Iron TIBC Total Bilirubin AST ALT Lactate Dehydrogenase Total Creatine Kinase CK-MB (CK-2) CK-MB (CK-2) Rel Index Troponin T C-Reactive Protein NT-Pro-B Natriuret Pep Total Protein Albumin HDL Cholesterol Folate Ur Specific [place] Urine WBC (Auto) Crossmatch 01/04/19 01/04/19 01/04/19 08:51 11:41 16:25 WBC RBC Hgb Hct RDW Plt Count Lymph % (Auto) [place] % (Auto) Lymph # [place] # Seg Neutrophils % PT INR D-Dimer Heparin Anti-Xa Level POC ABG pH POC ABG pCO2 POC ABG pO2 Sodium Potassium Chloride Carbon Dioxide BUN Creatinine Glucose POC Glucose 122 H 146 H 142 H Lactic Acid Calcium Iron TIBC Total Bilirubin AST ALT Lactate Dehydrogenase Total Creatine Kinase CK-MB (CK-2) CK-MB (CK-2) Rel Index Troponin T C-Reactive Protein NT-Pro-B Natriuret Pep Total Protein Albumin HDL Cholesterol Folate Ur Specific [place] Urine WBC (Auto) Crossmatch 01/04/19 01/05/19 01/05/19 21:16 04:41 04:41 WBC RBC Hgb Hct RDW 15.9 H Plt Count 126 L Lymph % (Auto) [place] % (Auto) Lymph # [place] # Seg Neutrophils % PT INR D-Dimer Heparin Anti-Xa Level POC ABG pH POC ABG pCO2 POC ABG pO2 Sodium Potassium 3.4 L Chloride Carbon Dioxide BUN Creatinine Glucose 128 H POC Glucose 140 H Lactic Acid Calcium Iron TIBC Total Bilirubin AST ALT Lactate Dehydrogenase Total Creatine Kinase CK-MB (CK-2) CK-MB (CK-2) Rel Index Troponin T C-Reactive Protein NT-Pro-B Natriuret Pep Total Protein Albumin HDL Cholesterol Folate Ur Specific [place] Urine WBC (Auto) Crossmatch 01/05/19 01/05/19 01/05/19 08:10 11:52 17:24 WBC RBC Hgb Hct RDW Plt Count Lymph % (Auto) [place] % (Auto) Lymph # [place] # Seg Neutrophils % PT INR D-Dimer Heparin Anti-Xa Level POC ABG pH POC ABG pCO2 POC ABG pO2 Sodium Potassium Chloride Carbon Dioxide BUN Creatinine Glucose POC Glucose 134 H 178 H 124 H Lactic Acid Calcium Iron TIBC Total Bilirubin AST ALT Lactate Dehydrogenase Total Creatine Kinase CK-MB (CK-2) CK-MB (CK-2) Rel Index Troponin T C-Reactive Protein NT-Pro-B Natriuret Pep Total Protein Albumin HDL Cholesterol Folate Ur Specific [place] Urine WBC (Auto) Crossmatch 01/05/19 01/06/19 01/06/19 21:36 03:12 03:12 WBC RBC Hgb Hct RDW 16.7 H Plt Count 138 L Lymph % (Auto) [place] % (Auto) Lymph # [place] # Seg Neutrophils % PT INR D-Dimer Heparin Anti-Xa Level POC ABG pH POC ABG pCO2 POC ABG pO2 Sodium Potassium 3.4 L Chloride Carbon Dioxide BUN Creatinine Glucose 112 H POC Glucose 119 H Lactic Acid Calcium Iron TIBC Total Bilirubin AST ALT Lactate Dehydrogenase Total Creatine Kinase CK-MB (CK-2) CK-MB (CK-2) Rel Index Troponin T C-Reactive Protein NT-Pro-B Natriuret Pep Total Protein Albumin HDL Cholesterol Folate Ur Specific [place] Urine WBC (Auto) Crossmatch 01/06/19 01/06/19 01/06/19 08:11 10:22 10:22 WBC RBC Hgb Hct RDW 16.7 H Plt Count Lymph % (Auto) [place] % (Auto) Lymph # [place] # Seg Neutrophils % PT INR D-Dimer Heparin Anti-Xa Level POC ABG pH POC ABG pCO2 POC ABG pO2 Sodium Potassium 3.5 L Chloride Carbon Dioxide BUN Creatinine Glucose 151 H POC Glucose 112 H Lactic Acid Calcium Iron TIBC Total Bilirubin AST ALT Lactate Dehydrogenase Total Creatine Kinase CK-MB (CK-2) CK-MB (CK-2) Rel Index Troponin T C-Reactive Protein NT-Pro-B Natriuret Pep Total Protein Albumin HDL Cholesterol Folate Ur Specific [place] Urine WBC (Auto) Crossmatch 01/06/19 11:51 WBC RBC Hgb Hct RDW Plt Count Lymph % (Auto) [place] % (Auto) Lymph # [place] # Seg Neutrophils % PT INR D-Dimer Heparin Anti-Xa Level POC ABG pH POC ABG pCO2 POC ABG pO2 Sodium Potassium Chloride Carbon Dioxide BUN Creatinine Glucose POC Glucose 148 H Lactic Acid Calcium Iron TIBC Total Bilirubin AST ALT Lactate Dehydrogenase Total Creatine Kinase CK-MB (CK-2) CK-MB (CK-2) Rel Index Troponin T C-Reactive Protein NT-Pro-B Natriuret Pep Total Protein Albumin HDL Cholesterol Folate Ur Specific [place] Urine WBC (Auto) Crossmatch Allied health notes reviewed: nursing
--- NOTE | 2019-01-06 15:12 | XRay Report ---
PROCEDURE: XR CHEST 1V AP TECHNIQUE: Chest radiograph single view. HISTORY: acute respiratory failure COMPARISONS: None . FINDINGS: Heart: Prominent cardiac silhouette. Mediastinum/Vessels: Normal. Lungs/Pleural space: Right pleural effusion with the right lung base atelectasis or infiltrate. Left perihilar atelectasis or infiltrate. Bony thorax: No acute osseous abnormality. Life support devices: None. IMPRESSION: Prominent cardiac silhouette. Right pleural effusion with the right lung base atelectasi s or infiltrate. Patchy left perihilar atelectasis or infiltrate. Correlate for possible congestive h eart failure This document is electronically signed by Iman Guerrero MD., January 06 2019 03:10:09 PM ET
--- NOTE | 2019-01-06 15:46 | Progress Note ---
Assessment and Plan He may have a component of HFrEF to his clinical picture. Obtain BNP. Increase diurectics to bid. Follow renal indices closely. When he is more stable, he will benefit from ischemia evaluation. - Patient Problems (1) Acute respiratory failure Current Visit: Yes Status: Acute (2) Lower leg DVT (deep venous thromboembolism), acute Current Visit: Yes Status: Acute (3) NSVT (nonsustained ventricular tachycardia) Current Visit: Yes Status: Acute (4) Non-STEMI (non-ST elevated myocardial infarction) Current Visit: Yes Status: Acute (5) Pleural effusion, right Current Visit: Yes Status: Acute (6) CAD (coronary artery disease) Current Visit: Yes Status: Chronic Qualifiers: Coronary Disease-Associated Artery/Lesion type: [place] artery (7) Thrombocytopenia Current Visit: Yes Status: Acute (8) CAD (coronary artery disease) Current Visit: Yes Status: Chronic (9) Hx of CABG Current Visit: Yes Status: Chronic (10) Anemia Current Visit: Yes Status: Acute (11) History of seizure Current Visit: Yes Status: Chronic (12) Diabetes mellitus Current Visit: Yes Status: Chronic Subjective Date of service: 01/06/19 Principal diagnosis: Acute resp failure, NSTEMI 2, R pleural effusion, Acute himanshu LE DVT, CAD Interval history: He complains of exertional dyspnea with minimal movements in bed. Objective Vital Signs Temp Pulse Pulse Pulse Pulse Resp Resp 01/06/19 14:50 77 77 20 01/06/19 14:35 81 81 18 01/06/19 12:00 98.3 F 01/06/19 10:06 94 H 01/06/19 10:05 95 H 01/06/19 09:25 97 H 97 H 21 01/06/19 09:20 01/06/19 09:15 95 H 95 H 18 01/06/19 08:00 98.6 F 01/06/19 04:00 98.4 F 82 27 H 01/06/19 03:30 101 H 01/06/19 03:15 99 H 01/06/19 00:01 91 H 14 01/06/19 00:00 98.2 F 82 82 27 H 01/05/19 23:32 87 13 01/05/19 23:26 88 30 H 01/05/19 23:00 96 H 29 H 01/05/19 22:12 94 H 01/05/19 22:00 93 H 21 01/05/19 21:08 01/05/19 21:06 92 H 01/05/19 21:01 90 26 H 01/05/19 20:56 90 01/05/19 20:00 98.4 F 81 81 21 01/05/19 19:35 98.4 F 01/05/19 19:01 91 H 19 01/05/19 18:01 99 H 19 01/05/19 17:01 92 H 20 01/05/19 16:01 95 H 13 01/05/19 16:00 98.6 F 82 Resp BP Pulse Ox 01/06/19 14:50 20 01/06/19 14:35 18 01/06/19 12:00 01/06/19 10:06 101/64 01/06/19 10:05 101/64 01/06/19 09:25 21 01/06/19 09:20 97 01/06/19 09:15 18 01/06/19 08:00 01/06/19 04:00 97 01/06/19 03:30 18 01/06/19 03:15 18 01/06/19 00:01 99/35 89 01/06/19 00:00 97 01/05/19 23:32 143/68 97 01/05/19 23:26 108/66 97 01/05/19 23:00 108/66 96 01/05/19 22:12 96/42 01/05/19 22:00 126/65 88 01/05/19 21:08 97 01/05/19 21:06 16 01/05/19 21:01 143/68 97 01/05/19 20:56 20 01/05/19 20:00 143/68 99 01/05/19 19:35 01/05/19 19:01 142/73 87 01/05/19 18:01 157/64 94 01/05/19 17:01 75/48 97 01/05/19 16:01 75/48 96 01/05/19 16:00 95 - Physical Examination General: No Apparent Distress HEENT: Positive: EOMI, Normocephaly, Mucus Membranes Moist Neck: Positive: neck supple, trachea midline Cardiac: Positive: Reg Rate and Rhythm, S1/S2 Lungs: Positive: Rhonchi Neuro: Positive: Grossly Intact Abdomen: Positive: Soft, Active Bowel Sounds. Negative: Tender Skin: Positive: Clear. Negative: Rash Musculoskeletal: Normal Range of Motion Extremities: Present: +1 Edema (bilateral leg edema) - Labs and Meds CBC 01/06/19 01/06/19 Range/Units 03:12 10:22 WBC 5.1 5.3 (4.5-11.0) K/mm3 RBC 4.24 4.41 (3.65-5.03) M/mm3 Hgb 12.4 12.8 (11.8-15.2) gm/dl Hct 38.0 39.0 (35.5-45.6) % Plt Count 138 L 164 (140-440) K/mm3 Comprehensive Metabolic Panel 01/06/19 01/06/19 Range/Units 03:12 10:22 Sodium 144 144 (137-145) mmol/L Potassium 3.4 L 3.5 L (3.6-5.0) mmol/L Chloride 104.3 105.3 (98-107) mmol/L Carbon Dioxide 28 29 (22-30) mmol/L BUN 10 12 (9-20) mg/dL Creatinine 0.9 1.0 (0.8-1.5) mg/dL Glucose 112 H 151 H (75-100) mg/dL Calcium 8.4 8.4 (8.4-10.2) mg/dL - Imaging and Cardiology EKG: image reviewed Echo: report reviewed (12/29/2018: EF 45-50%) - Telemetry EKG Rhythm: Sinus Rhythm (with frequent PVCs) - EKG Sinus rhythms and dysrhythmias: sinus rhythm Ventricular dysrhythmias: ventricular premature com AV and intraventricular conduction: 1 AV block, intraventricular conducti Repolarization changes or abnormalities: nonspecific abnormality, ST segment, and/or T wave - Allied health notes Allied health notes reviewed: nursing
[2019-01-06] MEDS ORDERED: K-DUR PO ONE (17:34)
[2019-01-06] MEDS: FOLVITE PO SCH (17:45)
--- NOTE | 2019-01-06 19:20 | Cat Scan Report ---
PROCEDURE: CT CHEST WO CON TECHNIQUE: Computerized axial tomography of the abdomen and pelvis was performed without contrast. C oronal and sagittal reconstruction was also performed. CT DOSE LENGTH PRODUCT: 1209.5 mGycm HISTORY: RLL pleural thickening (H/O asbestos exposure) PRIORS: CT chest 12/29/2018 FINDINGS : There are bilateral low-density pleural effusions, right greater than left. Compared to previous, rig ht sided effusion has decreased, probably due to interval thoracentesis which can be correlated clini blane. Adjacent compressive atelectasis in each lower lobe is noted. There is a small pneumothorax wh ich may be due to interval thoracentesis. There is no evidence for mediastinal, hilar, or axillary adenopathy. The esophagus is collapsed. The trachea is midline. Median sternotomy wires are noted. Cardiovascular structures are within normal limits. Cardiac size a nd aorta are normal. Images through the lung bases include upper abdomen which show no abnormality of the visualized abdom inal viscera. Gallbladder has been surgically removed. Bony structures show no focal abnormalities. No evidence for bony fracture is seen. Degenerative disc changes throughout the thoracic spine. IMPRESSION 1. Improving right pleural effusion, with a small pneumothorax noted. Findings suggest interval thora centesis 2. Stable left effusion 3. Bibasilar adjacent compressive atelectasis This document is electronically signed by Nika Mishra MD., January 06 2019 07:18:44 PM ET
[2019-01-06] MEDS: ARIXTRA SUB-Q SCH ×2 (21:04)
[2019-01-07] MEDS: DUONEB *Not for PRN Use IH SCH ×5 (03:25→21:33)
[2019-01-07 04:35] LABS: Hematocrit 37.4 % (35.5-45.6); Hemoglobin 12.4 gm/dl (11.8-15.2)
[2019-01-07] MEDS: FLAGYL 500 MG/100 ML 500 MG/100 ML BAG IV SCH ×2 (05:32→13:29)
[2019-01-07] MEDS: MAXIPIME/NS 2 GM/100 ML 2 GM/100 ML BAG IV SCH ×3 (05:33→21:35)
[2019-01-07] MEDS: LASIX IV SCH ×2 (05:33→17:46)
--- NOTE | 2019-01-07 07:42 | Hem/Onc Progress Note ---
Assessment and Plan 1. Deep venous thrombosis, left common femoral and right peroneal; bilateral leg swelling present. The patient was placed on heparin drip. Her platelets have slightly fallen down. 2. The patient's platelet count at admission was 99 and then 196, 125, and 114. I do not have any information about the patient's baseline platelet count. HIT investigation, it is possible that the patient's baseline platelets are also low. 3. History of diabetes. 4. History of coronary artery disease. 5. Radiology shows right pleural effusion. 6. History of seizure disorder as per the notes. 7. Myocardial infarction. 8. Status post coronary artery bypass graft. 9. Electrolyte imbalance. 10. History of cerebrovascular accident. 11. History of pneumonia. 12. rt chest tube - h/o pl effusion 01/03 arixtra plt >100 US abdo limited - does not mention liver and spleen size. 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 - Patient Problems (1) DVT (deep venous thrombosis) Current Visit: Yes Status: Acute (2) Thrombocytopenia Current Visit: Yes Status: Acute Subjective Date of service: 01/07/19 Principal diagnosis: dvt - low plt Interval history: chest tube was pulled out - d/w dr fernandez Objective - Constitutional Vitals: Last Vital Signs Temp 97.9 F 01/07/19 04:00 Pulse 113 H 01/07/19 06:01 Resp 17 01/07/19 04:01 BP 117/56 01/07/19 06:01 Pulse Ox 95 01/07/19 05:01 Pain Intensity (0-10): denies any pain General appearance: no acute distress Performance status: 4-completely disabled - EENT Eyes: EOM intact ENT: clear oral mucosa Lymph node exam: negative cervical - Neck Neck: normal ROM - Respiratory Respiratory effort: Positive: normal Respiratory: bilateral: diminished - Cardiovascular Heart Sounds: Present: S1 & S2 Extremity abnormal: edema - Gastrointestinal General gastrointestinal: Present: soft, non-tender, other (obese) Rectal Exam: deferred - Genitourinary Male genitourinary: Present: deferred - Integumentary Integumentary: warm - Musculoskeletal Musculoskeletal: strength equal bilaterally - Neurologic Neurologic: moves all extremities - Labs Lab Results: Laboratory Results - last 24 hr 01/06/19 01/06/19 01/06/19 08:11 10:22 10:22 WBC 5.3 RBC 4.41 Hgb 12.8 Hct 39.0 MCV 88 MCH 29 MCHC 33 RDW 16.7 H Plt Count 164 Sodium 144 Potassium 3.5 L Chloride 105.3 Carbon Dioxide 29 Anion Gap 13 BUN 12 Creatinine 1.0 Estimated GFR > 60 BUN/Creatinine Ratio 12 Glucose 151 H POC Glucose 112 H Calcium 8.4 NT-Pro-B Natriuret Pep 01/06/19 01/06/19 01/06/19 11:51 17:04 17:57 WBC RBC Hgb Hct MCV MCH MCHC RDW Plt Count Sodium Potassium Chloride Carbon Dioxide Anion Gap BUN Creatinine Estimated GFR BUN/Creatinine Ratio Glucose POC Glucose 148 H 135 H Calcium NT-Pro-B Natriuret Pep 4783 H 01/06/19 01/07/19 01/07/19 20:59 03:49 03:49 WBC RBC Hgb 12.4 Hct 37.4 MCV MCH MCHC RDW Plt Count 149 Sodium Potassium 3.9 Chloride Carbon Dioxide Anion Gap BUN Creatinine Estimated GFR BUN/Creatinine Ratio Glucose POC Glucose 115 H Calcium NT-Pro-B Natriuret Pep Medications & Allergies - Medications Allergies/Adverse Reactions: Allergies Penicillins Allergy (Verified 12/29/18 04:18) Unknown Home Medications: Home Medications Medication Instructions Recorded Confirmed Last Taken Type Aspirin 81 mg PO DAILY 12/30/18 12/30/18 12/30/18 History AtorvaSTATin 40 mg PO HS 12/30/18 12/30/18 12/28/18 History Clopidogrel Bisulfate [Clopidogrel] 75 mg PO DAILY 12/30/18 12/30/18 12/28/18 History Furosemide 40 mg PO DAILY 12/30/18 12/30/18 12/28/18 History Gabapentin [Neurontin] 300 mg PO HS 12/30/18 12/30/18 12/28/18 History Losartan [Cozaar] 50 mg .ROUTE DAILY 12/30/18 12/30/18 12/28/18 History Metformin ER (Nf) 500 gm .ROUTE BID 12/30/18 12/30/18 12/28/18 History Metoprolol 50 mg PO DAILY 12/30/18 12/30/18 12/28/18 History Potassium 10 meq PO DAILY 12/30/18 12/30/18 12/28/18 History Ropinirole HCl 1 mg PO DAILY 12/30/18 12/30/18 12/28/18 History Sertraline 25 mg PO DAILY 12/30/18 12/30/18 12/28/18 History Sertraline 75 mg PO DAILY 12/30/18 12/30/18 12/28/18 History Active Medications: Generic Name Dose Route Start Last Admin Trade Name Freq PRN Reason Stop Dose Admin Acetaminophen 650 mg 12/29/18 04:49 12/30/18 08:33 Tylenol NM 650 mg Q4H PRN Administration Fever >101 Albuterol/Ipratropium 1 ampul 01/01/19 14:00 01/07/19 03:25 Duoneb *Not For Prn Use* IH 1 ampul Q6HRT WENDY Administration Atorvastatin Calcium 40 mg 01/04/19 22:00 01/06/19 21:11 Lipitor PO 40 mg QHS WENDY Administration Clopidogrel Bisulfate 75 mg 01/05/19 10:00 01/06/19 10:07 Plavix PO 75 mg DAILY WENDY Administration Dextrose 50 ml 12/29/18 04:47 D50w (25gm) Syringe IV PRN PRN Hypoglycemia Famotidine 20 mg 01/04/19 10:00 01/06/19 21:05 Pepcid PO 20 mg BID WENDY Administration Folic Acid 1 mg 01/06/19 12:00 01/06/19 17:45 Folvite PO 1 mg QDAY WENDY Administration Fondaparinux 7.5 mg 01/01/19 22:00 01/06/19 21:04 Arixtra SUB-Q 7.5 mg Q24H WENDY Administration Fondaparinux 2.5 mg 01/01/19 22:00 01/06/19 21:04 Arixtra SUB-Q 2.5 mg Q24H WENDY Administration Furosemide 20 mg 01/06/19 18:00 01/07/19 05:33 Lasix IV 20 mg 0600,1800 WENDY Administration Hydralazine HCl 10 mg 01/01/19 13:23 Apresoline IV Q4HR PRN SBP >/=170 Metronidazole 500 mg in 100 mls @ 100 mls/hr 12/30/18 14:00 01/07/19 05:32 Flagyl 500 Mg/100 Ml IV 01/08/19 13:59 100 mls/hr Q8HR WENDY Administration Protocol Cefepime HCl 2 gm in 100 mls @ 200 mls/hr 12/31/18 14:00 01/07/19 05:33 Maxipime/Ns 2 Gm/100 Ml IV 01/08/19 13:59 200 mls/hr Q8HR WENDY Administration Protocol Insulin Human Regular 0 units 01/04/19 11:30 01/06/19 21:55 Humulin R SUB-Q Not Given ACHS WENDY Protocol Levetiracetam 500 mg 01/04/19 10:00 01/06/19 21:05 Keppra PO 500 mg BID WENDY Administration Losartan Potassium 50 mg 01/04/19 11:00 01/06/19 10:05 Cozaar PO 50 mg DAILY WENDY Administration Metoprolol Tartrate 12.5 mg 01/03/19 11:00 01/06/19 21:06 Lopressor PO 12.5 mg BID WENDY Administration Ondansetron HCl 4 mg 12/29/18 04:49 Zofran IV Q8H PRN Nausea And Vomiting
--- NOTE | 2019-01-07 08:55 | Progress Note ---
Assessment and Plan Assessment and plan: Patient is a 73-year-old male, with morbid obesity, HTN, CAD, s/p PA, Seizure, admitted after spouse found him on the floor with agonal breathing 10 mins after he went to bed. EMS was called and transported to the hospital in. He was diagnosed with acute respiratory failure, intubated in the ED. Patient was extubated on 01/01, put on BIPAP , now on Oxygen by [place]. He was also diagnosed with sepsis due to pneumonia, completed Antibiotics. He is also diagnosed with DVT both legs, seen by Dr. Rivera, was put on Arixtra. He had thrombocytopenia, now resolved. He is being switched to Eliquis today but will hold for 2 days for thoracentesis due to right pleural effusion. He pulled out Peripheral iv line and Mid line overnight 01/03, and also pulled out right chest tube overnight 01/04. He has been confused, agitated on and off. Started on on Haldol Acute Hypoxic Respiratory failure- s/p extubated 01/01. now on Oxygen by [place] Seizure Disorder DVT bilateral lower extremity Sepsis Right sided Pneumonia Large Right sided Pleural effusion- s/p chest tube was placed, s/p removal by patient Shock syndrome questionable septic versus cardiogenic Hypokalemia Morbid Obesity Thrombocytopenia Non ST elevated PA type II Presumed ischemic cardiomyopathy status post CABG Toxic metabolic encephalopathy Severe Protein calorie malnutrition Hyponatremia Hypocalcemia History of CVA 2 years ago Plan was intubated, now extubated, placed on BIPAP, now on Oxygen by [place] Off heparin drip, was on Arixtra. Was to start Eliquis today but on hold because need to be on hold for thoracentesiss Continue current ICU care VAP and aspiration precautions ID following Continue AED DVT/GI prophy patient pulled out peripheral iv line and Mid line night of 01/03 Pulled out right chest tube few days ago For thoracentesis right pleural effusion Today more confused, start haldol,monitor To start Eliquis, resume Plavix Monday after thoracentesis History Interval history: Patient with acute resp failure, sepsis,peumonia, bilateral DVT More confused today Insomnia Hospitalist Physical - Physical exam Narrative exam: Gen: Not in acute distress, morbidly obese, Oxygen by [place] HEENT: Normocephalic, atraumatic Neck: supple, no JVD Heart: S1 and S2 reg, no murmurs, rubs or gallop Lungs: Clear, no crackles, Abd: soft, non tender, non distended, normal BS Ext: No edema, no clubbing, no cyanosis, Neuro: Awake, alert, moves all ext, calm, confused today - Constitutional Vitals: Temp Pulse Resp BP Pulse Ox 97.9 F 113 H 17 117/56 96 01/07/19 04:00 01/07/19 06:01 01/07/19 04:01 01/07/19 06:01 01/07/19 08:32 General appearance: Present: no acute distress Results - Labs CBC & Chem 7: 01/07/19 03:49 01/07/19 10:34 Labs: Laboratory Last Values WBC 5.3 K/mm3 (4.5-11.0) 01/06/19 10:22 RBC 4.41 M/mm3 (3.65-5.03) 01/06/19 10:22 Hgb 12.4 gm/dl (11.8-15.2) 01/07/19 03:49 Hct 37.4 % (35.5-45.6) 01/07/19 03:49 MCV 88 fl (84-94) 01/06/19 10:22 MCH 29 pg (28-32) 01/06/19 10:22 MCHC 33 % (32-34) 01/06/19 10:22 RDW 16.7 % (13.2-15.2) H 01/06/19 10:22 Plt Count 149 K/mm3 (140-440) 01/07/19 03:49 Lymph % (Auto) 7.5 % (13.4-35.0) L 01/02/19 05:09 [place] % (Auto) 14.2 % (0.0-7.3) H 01/02/19 05:09 Eos % (Auto) 1.3 % (0.0-4.3) 01/02/19 05:09 Baso % (Auto) 0.5 % (0.0-1.8) 01/02/19 05:09 Lymph # 0.3 K/mm3 (1.2-5.4) L 01/02/19 05:09 [place] # 0.6 K/mm3 (0.0-0.8) 01/02/19 05:09 Eos # 0.1 K/mm3 (0.0-0.4) 01/02/19 05:09 Baso # 0.0 K/mm3 (0.0-0.1) 01/02/19 05:09 Seg Neutrophils % 76.5 % (40.0-70.0) H 01/02/19 05:09 Seg Neutrophils # 3.0 K/mm3 (1.8-7.7) 01/02/19 05:09 PT 16.5 Sec. (12.2-14.9) H 12/30/18 18:17 INR 1.25 (0.87-1.13) H 12/30/18 18:17 APTT 33.1 Sec. (24.2-36.6) 12/30/18 18:17 D-Dimer 815.50 ng/mlDDU (0-234) H 12/28/18 23:58 Heparin Anti-Xa Level 0.70 U.I./ml (0.3-0.7) 01/02/19 05:09 POC ABG pH 7.318 (7.35-7.45) L 01/02/19 11:21 POC ABG pCO2 56.7 (35-45) H 01/02/19 11:21 POC ABG pO2 215 (80-105) H 01/02/19 11:21 POC ABG HCO3 29.1 (22-26 mml/L) 01/02/19 11:21 POC ABG Total CO2 31 (23-27mmol/L) 01/02/19 11:21 POC ABG O2 Sat 100 01/02/19 11:21 POC ABG Base Excess 3 ((-2) - (+3)mmol/L) 01/02/19 11:21 FiO2 60 % 01/02/19 11:21 Sodium 144 mmol/L (137-145) 01/06/19 10:22 Potassium 3.9 mmol/L (3.6-5.0) 01/07/19 03:49 Chloride 105.3 mmol/L (98-107) 01/06/19 10:22 Carbon Dioxide 29 mmol/L (22-30) 01/06/19 10:22 Anion Gap 13 mmol/L 01/06/19 10:22 BUN 12 mg/dL (9-20) 01/06/19 10:22 Creatinine 1.0 mg/dL (0.8-1.5) 01/06/19 10:22 Estimated GFR > 60 ml/min 01/06/19 10:22 BUN/Creatinine Ratio 12 % 01/06/19 10:22 Glucose 151 mg/dL (75-100) H 01/06/19 10:22 POC Glucose 143 (70-105) H 01/07/19 08:35 Lactic Acid 1.50 mmol/L (0.7-2.0) 12/30/18 11:42 Calcium 8.4 mg/dL (8.4-10.2) 01/06/19 10:22 Magnesium 1.90 mg/dL (1.7-2.3) 01/06/19 00:14 Iron 34 ug/dL (49-181) L 01/02/19 05:09 TIBC 231 mcg/dL (250-450) L 01/02/19 05:09 Ferritin 163.3 ng/mL (13.0-400.0) 01/02/19 05:09 Total Bilirubin 0.60 mg/dL (0.1-1.2) 01/01/19 04:42 AST 23 units/L (5-40) 01/01/19 04:42 ALT 10 units/L (7-56) 01/01/19 04:42 Alkaline Phosphatase 53 units/L (35-129) 01/01/19 04:42 Lactate Dehydrogenase 405 units/L (91-180) H 12/29/18 15:02 Total Creatine Kinase 837 units/L (55-170) H 12/29/18 12:51 CK-MB (CK-2) 10.5 ng/mL (0.0-4.0) H 12/29/18 12:51 CK-MB (CK-2) Rel Index 1.2 (0-4) 12/29/18 12:51 Troponin T 0.060 ng/mL (0.00-0.029) H D 12/30/18 13:53 C-Reactive Protein 2.80 mg/dL (0.00-1.30) H 12/29/18 16:46 NT-Pro-B Natriuret Pep 4783 pg/mL (0-900) H 01/06/19 17:04 Total Protein 4.9 g/dL (6.3-8.2) L 01/01/19 04:42 Albumin 2.3 g/dL (3.9-5) L 01/01/19 04:42 Albumin/Globulin Ratio 0.9 % 01/01/19 04:42 Triglycerides 113 mg/dL (2-149) 12/29/18 08:34 Cholesterol 120 mg/dL (50-199) 12/29/18 08:34 LDL Cholesterol Direct 82 mg/dL (50-130) 12/29/18 08:34 HDL Cholesterol 34 mg/dL (40-59) L 12/29/18 08:34 Cholesterol/HDL Ratio 3.52 % 12/29/18 08:34 Vitamin B12 365.3 pg/mL (211-911) 01/02/19 05:09 Folate 6.01 ng/mL (7.3-26.0) L 01/02/19 05:09 Urine Color [place]ol[place] (Yellow) 12/29/18 03:00 Urine Turbidity Cloudy (Clear) 12/29/18 03:00 Urine pH 5.0 (5.0-7.0) 12/29/18 03:00 Ur Specific [place] 1.033 (1.003-1.030) H 12/29/18 03:00 Urine Protein >500 mg/dL (Negative) 12/29/18 03:00 Urine Glucose (UA) 150 mg/dL (Negative) 12/29/18 03:00 Urine Ketones Neg mg/dL (Negative) 12/29/18 03:00 Urine Blood Mod (Negative) 12/29/18 03:00 Urine Nitrite Neg (Negative) 12/29/18 03:00 Urine Bilirubin Neg (Negative) 12/29/18 03:00 Urine Urobilinogen < 2.0 mg/dL (<2.0) 12/29/18 03:00 Ur Leukocyte Esterase Neg (Negative) 12/29/18 03:00 Urine WBC (Auto) 31.0 /HPF (0.0-6.0) H 12/29/18 03:00 Urine RBC (Auto) 27.0 /HPF (0.0-6.0) 12/29/18 03:00 U Epithel Cells (Auto) 4.0 /HPF (0-13.0) 12/29/18 03:00 Urine Bacteria (Auto) 4+ /HPF (Negative) 12/29/18 03:00 Urine Mucus 3+ /HPF 12/29/18 03:00 Urine Opiates Screen Presumptive negative 12/29/18 03:00 Urine Methadone Screen Presumptive negative 12/29/18 03:00 Ur Barbiturates Screen Presumptive negative 12/29/18 03:00 Ur Phencyclidine Scrn Presumptive negative 12/29/18 03:00 Ur Amphetamines Screen Presumptive negative 12/29/18 03:00 U Benzodiazepines Scrn Presumptive negative 12/29/18 03:00 Urine Cocaine Screen Presumptive negative 12/29/18 03:00 U Marijuana (THC) Screen Presumptive negative 12/29/18 03:00 Drugs of Abuse Note Disclamer 12/29/18 03:00 Urine Legionella Ag Not detected (Not Detected) 12/31/18 05:30 Blood Type O POSITIVE 12/29/18 01:53 Antibody Screen Negative 12/29/18 01:53 Crossmatch See Detail 12/29/18 01:53 Active Medications - Current Medications Current Medications: Generic Name Dose Route Start Last Admin Trade Name Freq PRN Reason Stop Dose Admin Acetaminophen 650 mg 12/29/18 04:49 12/30/18 08:33 Tylenol [place] 650 mg Q4H PRN Administration Fever >101 Albuterol/Ipratropium 1 ampul 01/01/19 14:00 01/07/19 08:33 Duoneb *Not For Prn Use* IH Not Given Q6HRT [facility] Apixaban 10 mg 01/07/19 10:00 Eliquis PO Q12HR [facility] Protocol Atorvastatin Calcium 40 mg 01/04/19 22:00 01/06/19 21:11 Lipitor PO 40 mg QHS WENDY Administration Clopidogrel Bisulfate 75 mg 01/05/19 10:00 01/06/19 10:07 Plavix PO 75 mg DAILY WENDY Administration Dextrose 50 ml 12/29/18 04:47 D50w (25gm) Syringe IV PRN PRN Hypoglycemia Famotidine 20 mg 01/04/19 10:00 01/06/19 21:05 Pepcid PO 20 mg BID WENDY Administration Folic Acid 1 mg 01/06/19 12:00 01/06/19 17:45 Folvite PO 1 mg QDAY WENDY Administration Furosemide 20 mg 01/06/19 18:00 01/07/19 05:33 Lasix IV 20 mg 0600,1800 WENDY Administration Hydralazine HCl 10 mg 01/01/19 13:23 Apresoline IV Q4HR PRN SBP >/=170 Metronidazole 500 mg in 100 mls @ 100 mls/hr 12/30/18 14:00 01/07/19 05:32 Flagyl 500 Mg/100 Ml IV 01/08/19 13:59 100 mls/hr Q8HR WENDY Administration Protocol Cefepime HCl 2 gm in 100 mls @ 200 mls/hr 12/31/18 14:00 01/07/19 05:33 Maxipime/Ns 2 Gm/100 Ml IV 01/08/19 13:59 200 mls/hr Q8HR WENDY Administration Protocol Insulin Human Regular 0 units 01/04/19 11:30 01/06/19 21:55 Humulin R SUB-Q Not Given ACHS WENDY Protocol Levetiracetam 500 mg 01/04/19 10:00 01/06/19 21:05 Keppra PO 500 mg BID WENDY Administration Losartan Potassium 50 mg 01/04/19 11:00 01/06/19 10:05 Cozaar PO 50 mg DAILY WENDY Administration Metoprolol Tartrate 12.5 mg 01/03/19 11:00 01/06/19 21:06 Lopressor PO 12.5 mg BID WENDY Administration Ondansetron HCl 4 mg 12/29/18 04:49 Zofran IV Q8H PRN Nausea And Vomiting Nutrition/Malnutrition Assess - Dietary Evaluation Nutrition/Malnutrition Findings: Nutrition Notes Start: 12/31/18 14:59 Freq: Status: Active Protocol: Document 01/04/19 11:21 CP (Rec: 01/04/19 11:27 CP [id number]) Co-Sign 01/04/19 11:21 LP Nutrition Notes Initial or Follow up Reassessment Current Diagnosis Coronary Artery Disease, Diabetes,Hypertension, Respiratory Failure Other Pertinent Diagnosis (R) lung effusion Current Diet Cardiac/consistent carbohydrate Labs/Tests K: 3.3 Glu: 122 Pertinent Medications Reviewed Height 5 ft 9 in Weight 145 kg [place] Body Weight (kg) 72.72 BMI 47.2 Weight Status Morbidly Obese Subjective/Other Information Pt stated that his appetite was "not good" and that he consumed 0% of his meal this morning. Pt was open to ONS. Percent of energy/protein needs met: 0%/0% Burn Absent Trauma Absent #1 Nutrition Diagnosis Inadequate oral intake As Evidenced by Signs and Symptoms Pt consuming 0% of breakfast Diagnosis Progress(for reassessment Continues documentation) Is patient on ventilator? No Is Patient Ambulatory and/or Out of Bed No REE-([place]-confined to bed) 2615.916 Kcal/Kg value to use for calculation 11 Approximate Energy Requirements Using 1595 kcal/Kg Additional Notes Pro needs:72-87g/day (1-1.2g/ kg IBW: 182g/day) Fluid needs 1ml/kcal Nutrition Intervention Change Diet Order: Continue current of per MD request Nutrition Support: D/C Add Supplement/Snack (indicate name/kcal Glucerna [place] daily /protein ) Provides kCal: 220 Provides Protein (gm) 10 Goal #1 PO/ONS intake to meet at least 75% of energy and protein needs Anticipated Discharge Needs: Cardiac/consistent carbohydrate Follow-Up By: 01/07/19 Additional Comments F/U: PO/ONS intakes - Attestation Statement I have reviewed and agreed w/ Malnutrition eval & tx plan: Yes
[2019-01-07] MEDS: HumuLIN R SUB-Q SCH ×3 (09:19→16:50)
[2019-01-07] MEDS ORDERED: ELIQUIS PO SCH ×3 (10:00→22:00)
--- NOTE | 2019-01-07 10:08 | Progress Note ---
Assessment and Plan Cont present cardiac management. Encourage increased activity - PT following. F/u BMP. Can consider ischemic evaluation once medically stabilized. The patient has been seen in conjunction with Dr. Harding who agrees with the assessment and plan of care. - Patient Problems (1) Acute respiratory failure Current Visit: Yes Status: Acute (2) CAD (coronary artery disease) Current Visit: Yes Status: Chronic Qualifiers: Coronary Disease-Associated Artery/Lesion type: [place] artery (3) Hx of CABG Current Visit: Yes Status: Chronic (4) Sepsis Current Visit: Yes Status: Suspected (5) Pneumonia Current Visit: Yes Status: Suspected (6) Pleural effusion Current Visit: Yes Status: Resolved (7) Non-STEMI (non-ST elevated myocardial infarction) Current Visit: Yes Status: Acute Plan to address problem: type II (8) HTN (hypertension) Current Visit: Yes Status: Chronic (9) Diabetes mellitus Current Visit: Yes Status: Chronic (10) History of CVA (cerebrovascular accident) Current Visit: Yes Status: Chronic (11) History of left-sided carotid endarterectomy Current Visit: Yes Status: Chronic (12) History of seizure Current Visit: Yes Status: Chronic (13) Anemia Current Visit: Yes Status: Acute Qualifiers: Anemia type: unspecified type Qualified Code(s): D64.9 - Anemia, unspecified (14) Thrombocytopenia Current Visit: Yes Status: Acute (15) DVT (deep venous thrombosis) Current Visit: Yes Status: Acute Subjective Date of service: 01/07/19 Principal diagnosis: dvt - low plt Interval history: pt resting in bed, on O2 via NC. Intermittently confused and agitated overnight per his family members at bedside. Objective Last Vital Signs Temp 97.9 F 01/07/19 04:00 Pulse 92 H 01/07/19 09:01 Resp 19 01/07/19 09:01 BP 153/103 01/07/19 09:01 Pulse Ox 96 01/07/19 09:01 - Physical Examination General: No Apparent Distress HEENT: Positive: EOMI, Normocephaly, Mucus Membranes Moist Neck: Positive: neck supple, trachea midline Cardiac: Positive: Reg Rate and Rhythm, S1/S2 Lungs: Positive: Decreased Breath Sounds Neuro: Positive: Grossly Intact Abdomen: Positive: Soft, Active Bowel Sounds. Negative: Tender Skin: Positive: Clear. Negative: Rash Musculoskeletal: Normal Range of Motion Extremities: Present: +1 Edema (bilateral leg edema) - Labs and Meds CBC 01/06/19 01/07/19 Range/Units 10:22 03:49 WBC 5.3 (4.5-11.0) K/mm3 RBC 4.41 (3.65-5.03) M/mm3 Hgb 12.8 12.4 (11.8-15.2) gm/dl Hct 39.0 37.4 (35.5-45.6) % Plt Count 164 149 (140-440) K/mm3 Comprehensive Metabolic Panel 01/06/19 01/07/19 Range/Units 10:22 03:49 Sodium 144 (137-145) mmol/L Potassium 3.5 L 3.9 (3.6-5.0) mmol/L Chloride 105.3 (98-107) mmol/L Carbon Dioxide 29 (22-30) mmol/L BUN 12 (9-20) mg/dL Creatinine 1.0 (0.8-1.5) mg/dL Glucose 151 H (75-100) mg/dL Calcium 8.4 (8.4-10.2) mg/dL - Imaging and Cardiology EKG: image reviewed Echo: report reviewed (12/29/2018: EF 45-50%) - EKG Sinus rhythms and dysrhythmias: sinus rhythm Ventricular dysrhythmias: ventricular premature com AV and intraventricular conduction: 1 AV block, intraventricular conducti Repolarization changes or abnormalities: nonspecific abnormality, ST segment, and/or T wave - Allied health notes Allied health notes reviewed: nursing
[2019-01-07 10:12] LABS: Heparin-Induced Platelet Antib Negative (Negative); Unfractionated Heparin Negative (Negative)
[2019-01-07] MEDS: KEPPRA PO SCH ×2 (10:43→21:38)
[2019-01-07] MEDS: FOLVITE PO SCH (10:44)
[2019-01-07] MEDS: LOPRESSOR PO SCH ×2 (10:44→21:39)
[2019-01-07] MEDS: PEPCID PO SCH ×2 (10:44→21:38)
[2019-01-07] MEDS: COZAAR PO SCH (10:45)
[2019-01-07] MEDS: PLAVIX PO SCH (10:46)
[2019-01-07] MEDS ORDERED: AMBIEN PO PRN (11:08)
[2019-01-07 11:28] LABS: BUN/Creatinine Ratio 11; Blood Urea Nitrogen 12 mg/dL (9-20); Calcium 8.5 mg/dL (8.4-10.2); Hemolysis Index 48
[2019-01-07] MEDS: HALDOL IM PRN ×2 (13:29→19:29)
--- NOTE | 2019-01-07 14:17 | Progress Note ---
Assessment and Plan Patient sleeping at this time on BIPAP. Patient is on BIPAP 15/8, rate 20, FIO2 35%. O2 saturation 96%. Nursing staff told me patient awake and agitating most of the time.Patient given Haldol. Patient resting better.Patient Morbidly Obese. - Patient Problems (1) Acute respiratory failure Current Visit: Yes Status: Acute Plan to address problem: BIPAP 15/8, rate 20, FIO2 35%. Albuterol/atrovent aerosol treatments q 6 hours. Continue Cepepime. Continue famotidine. SCDs (2) Pleural effusion, right Current Visit: Yes Status: Acute Plan to address problem: Patient undergone thoracentesis. (3) CAD (coronary artery disease) Current Visit: Yes Status: Chronic Plan to address problem: Management as per cardiology. (4) Diabetes mellitus Current Visit: Yes Status: Chronic Plan to address problem: Management as per primary care. (5) HTN (hypertension) Current Visit: Yes Status: Chronic Plan to address problem: Management as per primary care. (6) History of CVA (cerebrovascular accident) Current Visit: Yes Status: Chronic Plan to address problem: Management as per primary care. Subjective Date of service: 01/07/19 Principal diagnosis: dvt - low plt Interval history: Patient sleeping at this time on BIPAP. Patient is on BIPAP 15/8, rate 20, FIO2 35%. O2 saturation 96%. Nursing staff told me patient awake and agitating most of the time.Patient given Haldol. Patient resting better.Patient Morbidly Obese. Objective Vital Signs - 12hr 01/07/19 01/07/19 01/07/19 03:01 03:26 03:40 Temperature Pulse Rate 85 86 Pulse Rate [ 94 H Bilateral] Pulse Rate [ Right Dorsalis Pedis] Respiratory 24 31 H Rate Respiratory 22 Rate [Bilateral ] Blood Pressure 128/51 O2 Sat by Pulse 92 98 Oximetry 01/07/19 01/07/19 01/07/19 03:41 04:00 04:01 Temperature 97.9 F Pulse Rate 93 H 84 Pulse Rate [ 96 H Bilateral] Pulse Rate [ 89 Right Dorsalis Pedis] Respiratory 20 17 Rate Respiratory 22 Rate [Bilateral ] Blood Pressure 117/56 128/51 O2 Sat by Pulse 99 97 Oximetry 01/07/19 01/07/19 01/07/19 05:01 06:01 08:00 Temperature 97.7 F Pulse Rate 113 H Pulse Rate [ Bilateral] Pulse Rate [ Right Dorsalis Pedis] Respiratory Rate Respiratory Rate [Bilateral ] Blood Pressure 128/51 117/56 O2 Sat by Pulse 95 Oximetry 01/07/19 01/07/19 01/07/19 08:05 08:32 09:01 Temperature Pulse Rate 86 92 H Pulse Rate [ Bilateral] Pulse Rate [ Right Dorsalis Pedis] Respiratory 9 L 19 Rate Respiratory Rate [Bilateral ] Blood Pressure 153/103 O2 Sat by Pulse 96 96 Oximetry 01/07/19 01/07/19 01/07/19 10:01 10:44 10:45 Temperature Pulse Rate 90 90 90 Pulse Rate [ Bilateral] Pulse Rate [ Right Dorsalis Pedis] Respiratory 20 Rate Respiratory Rate [Bilateral ] Blood Pressure 153/103 124/72 124/72 O2 Sat by Pulse 93 Oximetry 01/07/19 01/07/19 01/07/19 11:01 12:00 12:05 Temperature 97.9 F Pulse Rate 86 94 H 86 Pulse Rate [ Bilateral] Pulse Rate [ Right Dorsalis Pedis] Respiratory 28 H 15 30 H Rate Respiratory Rate [Bilateral ] Blood Pressure 111/33 111/33 114/58 O2 Sat by Pulse 90 80 L 97 Oximetry 01/07/19 01/07/19 01/07/19 12:08 12:19 13:01 Temperature Pulse Rate 78 Pulse Rate [ 85 81 Bilateral] Pulse Rate [ Right Dorsalis Pedis] Respiratory 15 Rate Respiratory 26 H 24 Rate [Bilateral ] Blood Pressure 115/79 O2 Sat by Pulse 91 Oximetry Constitutional: alert, appears uncomfortable, other (elderly looking morbidly obese CM normocephalic and withmildly increased work of breathing at rest) Eyes: non-icteric ENT: oropharynx moist Neck: supple, no lymphadenopathy, no JVD, other (large neck circumference) Effort: mildly labored Ascultation: Bilateral: diminished breath sounds, rhonchi (bases), other (Right chest tube) Percussion: Bilateral: not dull Cardiovascular: regular rate and rhythm, other (No R/M) Gastrointestinal: normoactive bowel sounds, soft, non-tender, non-distended Integumentary: normal Extremities: no cyanosis, pink and warm, pulses normal, no ischemia or pet echiae, edema (1+) Neurologic: normal mental status, non-focal exam (grossly), pupils equal and round, CN II-XII normal, motor strength normal and Psychiatric: mood appropriate, affect normal CBC and BMP: 01/07/19 03:49 01/07/19 10:34 ABG, PT/INR, D-dimer: ABG POC ABG pH 7.318 (7.35-7.45) L 01/02/19 11:21 POC ABG pCO2 56.7 (35-45) H 01/02/19 11:21 POC ABG pO2 215 (80-105) H 01/02/19 11:21 POC ABG HCO3 29.1 (22-26 mml/L) 01/02/19 11:21 POC ABG Total CO2 31 (23-27mmol/L) 01/02/19 11:21 POC ABG O2 Sat 100 01/02/19 11:21 PT/INR, D-dimer PT 16.5 Sec. (12.2-14.9) H 12/30/18 18:17 INR 1.25 (0.87-1.13) H 12/30/18 18:17 D-Dimer 815.50 ng/mlDDU (0-234) H 12/28/18 23:58 Abnormal lab findings: Abnormal Labs 12/28/18 12/28/18 12/28/18 23:58 23:58 23:58 WBC RBC 2.24 L Hgb 6.7 L Hct 20.9 L RDW 16.4 H Plt Count 99 L Lymph % (Auto) 10.7 L [place] % (Auto) 7.9 H Lymph # 0.6 L [place] # Seg Neutrophils % 80.7 H PT INR D-Dimer 815.50 H Heparin Anti-Xa Level POC ABG pH POC ABG pCO2 POC ABG pO2 Sodium 148 H Potassium 2.3 L* Chloride 128.4 H Carbon Dioxide 12 L BUN Creatinine 0.4 L Glucose POC Glucose Lactic Acid Calcium 5.0 L* Iron TIBC Total Bilirubin AST ALT < 5 L Lactate Dehydrogenase Total Creatine Kinase 44 L CK-MB (CK-2) CK-MB (CK-2) Rel Index 4.3 H Troponin T C-Reactive Protein NT-Pro-B Natriuret Pep Total Protein 2.3 L Albumin 1.1 L HDL Cholesterol Folate Ur Specific [place] Urine WBC (Auto) Crossmatch 12/28/18 12/29/18 12/29/18 23:58 00:27 01:53 WBC RBC Hgb Hct RDW Plt Count Lymph % (Auto) [place] % (Auto) Lymph # [place] # Seg Neutrophils % PT INR D-Dimer Heparin Anti-Xa Level POC ABG pH 7.169 L POC ABG pCO2 POC ABG pO2 Sodium Potassium Chloride Carbon Dioxide BUN Creatinine Glucose POC Glucose Lactic Acid Calcium Iron TIBC Total Bilirubin AST ALT Lactate Dehydrogenase Total Creatine Kinase CK-MB (CK-2) CK-MB (CK-2) Rel Index Troponin T C-Reactive Protein NT-Pro-B Natriuret Pep 1209 H Total Protein Albumin HDL Cholesterol Folate Ur Specific [place] Urine WBC (Auto) Crossmatch See Detail 12/29/18 12/29/18 12/29/18 03:00 05:02 08:34 WBC RBC Hgb Hct RDW Plt Count Lymph % (Auto) [place] % (Auto) Lymph # [place] # Seg Neutrophils % PT INR D-Dimer Heparin Anti-Xa Level POC ABG pH 7.225 L POC ABG pCO2 57.9 H POC ABG pO2 Sodium Potassium Chloride Carbon Dioxide BUN Creatinine Glucose POC Glucose Lactic Acid Calcium Iron TIBC Total Bilirubin AST ALT Lactate Dehydrogenase Total Creatine Kinase 344 H CK-MB (CK-2) 7.9 H CK-MB (CK-2) Rel Index Troponin T 0.103 H* D C-Reactive Protein NT-Pro-B Natriuret Pep Total Protein Albumin HDL Cholesterol 34 L Folate Ur Specific [place] 1.033 H Urine WBC (Auto) 31.0 H Crossmatch 12/29/18 12/29/18 12/29/18 08:34 08:53 12:51 WBC RBC Hgb Hct RDW Plt Count Lymph % (Auto) [place] % (Auto) Lymph # [place] # Seg Neutrophils % PT INR D-Dimer Heparin Anti-Xa Level POC ABG pH POC ABG pCO2 POC ABG pO2 Sodium Potassium 5.7 H D Chloride Carbon Dioxide BUN 21 H Creatinine Glucose 124 H POC Glucose 119 H Lactic Acid Calcium Iron TIBC Total Bilirubin AST ALT Lactate Dehydrogenase Total Creatine Kinase 837 H CK-MB (CK-2) 10.5 H CK-MB (CK-2) Rel Index Troponin T 0.084 H C-Reactive Protein NT-Pro-B Natriuret Pep Total Protein Albumin HDL Cholesterol Folate Ur Specific [place] Urine WBC (Auto) Crossmatch 12/29/18 12/29/18 12/29/18 12:51 12:51 15:02 WBC RBC Hgb Hct RDW 16.0 H Plt Count Lymph % (Auto) [place] % (Auto) 13.3 H Lymph # [place] # 1.4 H Seg Neutrophils % PT INR D-Dimer Heparin Anti-Xa Level POC ABG pH POC ABG pCO2 POC ABG pO2 Sodium Potassium 5.4 H Chloride Carbon Dioxide 19 L 17 L BUN 21 H 21 H Creatinine Glucose 116 H 115 H POC Glucose Lactic Acid Calcium Iron TIBC Total Bilirubin 1.50 H AST 43 H ALT Lactate Dehydrogenase 405 H Total Creatine Kinase CK-MB (CK-2) CK-MB (CK-2) Rel Index Troponin T C-Reactive Protein NT-Pro-B Natriuret Pep Total Protein 6.2 L D Albumin 3.1 L HDL Cholesterol Folate Ur Specific [place] Urine WBC (Auto) Crossmatch 12/29/18 12/29/18 12/29/18 15:03 16:46 16:46 WBC RBC Hgb Hct RDW Plt Count Lymph % (Auto) [place] % (Auto) Lymph # [place] # Seg Neutrophils % PT INR D-Dimer Heparin Anti-Xa Level POC ABG pH POC ABG pCO2 POC ABG pO2 Sodium Potassium Chloride Carbon Dioxide BUN Creatinine Glucose POC Glucose 121 H Lactic Acid 2.70 H* Calcium Iron TIBC Total Bilirubin AST ALT Lactate Dehydrogenase Total Creatine Kinase CK-MB (CK-2) CK-MB (CK-2) Rel Index Troponin T C-Reactive Protein 2.80 H NT-Pro-B Natriuret Pep Total Protein Albumin HDL Cholesterol Folate Ur Specific [place] Urine WBC (Auto) Crossmatch 12/29/18 12/29/18 12/29/18 16:50 17:37 19:37 WBC RBC Hgb Hct RDW Plt Count Lymph % (Auto) [place] % (Auto) Lymph # [place] # Seg Neutrophils % PT INR D-Dimer Heparin Anti-Xa Level POC ABG pH POC ABG pCO2 POC ABG pO2 248 H Sodium Potassium Chloride Carbon Dioxide 21 L BUN 21 H Creatinine Glucose 123 H POC Glucose 113 H Lactic Acid Calcium Iron TIBC Total Bilirubin AST ALT Lactate Dehydrogenase Total Creatine Kinase CK-MB (CK-2) CK-MB (CK-2) Rel Index Troponin T C-Reactive Protein NT-Pro-B Natriuret Pep Total Protein Albumin HDL Cholesterol Folate Ur Specific [place] Urine WBC (Auto) Crossmatch 12/29/18 12/29/18 12/30/18 20:10 21:36 04:43 WBC RBC Hgb Hct RDW Plt Count Lymph % (Auto) [place] % (Auto) Lymph # [place] # Seg Neutrophils % PT INR D-Dimer Heparin Anti-Xa Level POC ABG pH 7.327 L POC ABG pCO2 POC ABG pO2 79 L Sodium Potassium Chloride Carbon Dioxide BUN Creatinine Glucose POC Glucose Lactic Acid 2.70 H* 2.80 H* Calcium Iron TIBC Total Bilirubin AST ALT Lactate Dehydrogenase Total Creatine Kinase CK-MB (CK-2) CK-MB (CK-2) Rel Index Troponin T C-Reactive Protein NT-Pro-B Natriuret Pep Total Protein Albumin HDL Cholesterol Folate Ur Specific [place] Urine WBC (Auto) Crossmatch 12/30/18 12/30/18 12/30/18 11:42 11:42 13:43 WBC RBC Hgb Hct RDW 16.4 H Plt Count 125 L Lymph % (Auto) [place] % (Auto) Lymph # [place] # Seg Neutrophils % PT INR D-Dimer Heparin Anti-Xa Level POC ABG pH 7.225 L POC ABG pCO2 54.7 H POC ABG pO2 Sodium Potassium Chloride 108.8 H Carbon Dioxide BUN Creatinine Glucose 105 H POC Glucose Lactic Acid Calcium 8.2 L Iron TIBC Total Bilirubin AST ALT Lactate Dehydrogenase Total Creatine Kinase CK-MB (CK-2) CK-MB (CK-2) Rel Index Troponin T C-Reactive Protein NT-Pro-B Natriuret Pep Total Protein Albumin HDL Cholesterol Folate Ur Specific [place] Urine WBC (Auto) Crossmatch 12/30/18 12/30/18 12/30/18 13:53 18:17 18:17 WBC RBC Hgb Hct RDW Plt Count 114 L Lymph % (Auto) [place] % (Auto) Lymph # [place] # Seg Neutrophils % PT 16.5 H INR 1.25 H D-Dimer Heparin Anti-Xa Level POC ABG pH POC ABG pCO2 POC ABG pO2 Sodium Potassium Chloride Carbon Dioxide BUN Creatinine Glucose POC Glucose Lactic Acid Calcium Iron TIBC Total Bilirubin AST ALT Lactate Dehydrogenase Total Creatine Kinase CK-MB (CK-2) CK-MB (CK-2) Rel Index Troponin T 0.060 H D C-Reactive Protein NT-Pro-B Natriuret Pep Total Protein Albumin HDL Cholesterol Folate Ur Specific [place] Urine WBC (Auto) Crossmatch 12/31/18 12/31/18 12/31/18 00:31 04:39 05:30 WBC RBC Hgb 10.9 L Hct 32.4 L RDW 16.1 H Plt Count 97 L Lymph % (Auto) [place] % (Auto) Lymph # [place] # Seg Neutrophils % PT INR D-Dimer Heparin Anti-Xa Level 0.12 L POC ABG pH 7.337 L POC ABG pCO2 POC ABG pO2 Sodium Potassium Chloride Carbon Dioxide BUN Creatinine Glucose POC Glucose Lactic Acid Calcium Iron TIBC Total Bilirubin AST ALT Lactate Dehydrogenase Total Creatine Kinase CK-MB (CK-2) CK-MB (CK-2) Rel Index Troponin T C-Reactive Protein NT-Pro-B Natriuret Pep Total Protein Albumin HDL Cholesterol Folate Ur Specific [place] Urine WBC (Auto) Crossmatch 12/31/18 12/31/18 12/31/18 05:30 16:27 18:40 WBC RBC Hgb Hct RDW Plt Count Lymph % (Auto) [place] % (Auto) Lymph # [place] # Seg Neutrophils % PT INR D-Dimer Heparin Anti-Xa Level POC ABG pH 7.246 L POC ABG pCO2 52.6 H POC ABG pO2 Sodium Potassium Chloride 110.5 H Carbon Dioxide BUN Creatinine Glucose 107 H POC Glucose 109 H Lactic Acid Calcium 8.2 L Iron TIBC Total Bilirubin 1.30 H AST ALT Lactate Dehydrogenase Total Creatine Kinase CK-MB (CK-2) CK-MB (CK-2) Rel Index Troponin T C-Reactive Protein NT-Pro-B Natriuret Pep Total Protein 5.1 L Albumin 2.3 L HDL Cholesterol Folate Ur Specific [place] Urine WBC (Auto) Crossmatch 12/31/18 01/01/19 01/01/19 21:37 03:05 04:25 WBC RBC Hgb Hct RDW Plt Count Lymph % (Auto) [place] % (Auto) Lymph # [place] # Seg Neutrophils % PT INR D-Dimer Heparin Anti-Xa Level POC ABG pH 7.278 L POC ABG pCO2 50.6 H POC ABG pO2 111 H Sodium Potassium Chloride Carbon Dioxide BUN Creatinine Glucose POC Glucose 108 H 147 H Lactic Acid Calcium Iron TIBC Total Bilirubin AST ALT Lactate Dehydrogenase Total Creatine Kinase CK-MB (CK-2) CK-MB (CK-2) Rel Index Troponin T C-Reactive Protein NT-Pro-B Natriuret Pep Total Protein Albumin HDL Cholesterol Folate Ur Specific [place] Urine WBC (Auto) Crossmatch 01/01/19 01/01/19 01/01/19 04:42 04:42 06:32 WBC 3.9 L RBC 3.54 L Hgb 10.7 L Hct 31.6 L RDW 16.3 H Plt Count 83 L Lymph % (Auto) [place] % (Auto) Lymph # [place] # Seg Neutrophils % PT INR D-Dimer Heparin Anti-Xa Level POC ABG pH POC ABG pCO2 POC ABG pO2 Sodium Potassium Chloride 109.8 H Carbon Dioxide BUN Creatinine Glucose 134 H POC Glucose 143 H Lactic Acid Calcium 8.1 L Iron TIBC Total Bilirubin AST ALT Lactate Dehydrogenase Total Creatine Kinase CK-MB (CK-2) CK-MB (CK-2) Rel Index Troponin T C-Reactive Protein NT-Pro-B Natriuret Pep Total Protein 4.9 L Albumin 2.3 L HDL Cholesterol Folate Ur Specific [place] Urine WBC (Auto) Crossmatch 01/01/19 01/01/19 01/01/19 07:33 11:37 13:55 WBC RBC Hgb Hct RDW Plt Count Lymph % (Auto) [place] % (Auto) Lymph # [place] # Seg Neutrophils % PT INR D-Dimer Heparin Anti-Xa Level POC ABG pH 7.242 L POC ABG pCO2 55.3 H POC ABG pO2 Sodium Potassium Chloride Carbon Dioxide BUN Creatinine Glucose POC Glucose 137 H 133 H Lactic Acid Calcium Iron TIBC Total Bilirubin AST ALT Lactate Dehydrogenase Total Creatine Kinase CK-MB (CK-2) CK-MB (CK-2) Rel Index Troponin T C-Reactive Protein NT-Pro-B Natriuret Pep Total Protein Albumin HDL Cholesterol Folate Ur Specific [place] Urine WBC (Auto) Crossmatch 01/01/19 01/01/19 01/01/19 15:44 16:51 21:35 WBC RBC Hgb Hct RDW Plt Count Lymph % (Auto) [place] % (Auto) Lymph # [place] # Seg Neutrophils % PT INR D-Dimer Heparin Anti-Xa Level POC ABG pH 7.298 L POC ABG pCO2 50.6 H POC ABG pO2 Sodium Potassium Chloride Carbon Dioxide BUN Creatinine Glucose POC Glucose 139 H 106 H Lactic Acid Calcium Iron TIBC Total Bilirubin AST ALT Lactate Dehydrogenase Total Creatine Kinase CK-MB (CK-2) CK-MB (CK-2) Rel Index Troponin T C-Reactive Protein NT-Pro-B Natriuret Pep Total Protein Albumin HDL Cholesterol Folate Ur Specific [place] Urine WBC (Auto) Crossmatch 01/02/19 01/02/19 01/02/19 03:13 04:40 05:09 WBC 3.9 L RBC Hgb Hct RDW 16.1 H Plt Count 94 L Lymph % (Auto) 7.5 L [place] % (Auto) 14.2 H Lymph # 0.3 L [place] # Seg Neutrophils % 76.5 H PT INR D-Dimer Heparin Anti-Xa Level POC ABG pH 7.206 L POC ABG pCO2 65.8 H POC ABG pO2 62 L Sodium Potassium Chloride Carbon Dioxide BUN Creatinine Glucose POC Glucose 124 H Lactic Acid Calcium Iron TIBC Total Bilirubin AST ALT Lactate Dehydrogenase Total Creatine Kinase CK-MB (CK-2) CK-MB (CK-2) Rel Index Troponin T C-Reactive Protein NT-Pro-B Natriuret Pep Total Protein Albumin HDL Cholesterol Folate Ur Specific [place] Urine WBC (Auto) Crossmatch 01/02/19 01/02/19 01/02/19 05:09 05:09 05:32 WBC RBC Hgb Hct RDW Plt Count Lymph % (Auto) [place] % (Auto) Lymph # [place] # Seg Neutrophils % PT INR D-Dimer Heparin Anti-Xa Level POC ABG pH POC ABG pCO2 POC ABG pO2 Sodium Potassium Chloride 107.4 H Carbon Dioxide BUN Creatinine Glucose 133 H POC Glucose 130 H Lactic Acid Calcium 8.3 L Iron 34 L TIBC 231 L Total Bilirubin AST ALT Lactate Dehydrogenase Total Creatine Kinase CK-MB (CK-2) CK-MB (CK-2) Rel Index Troponin T C-Reactive Protein NT-Pro-B Natriuret Pep Total Protein Albumin HDL Cholesterol Folate 6.01 L Ur Specific [place] Urine WBC (Auto) Crossmatch 01/02/19 01/02/19 01/02/19 10:25 11:21 11:42 WBC RBC Hgb Hct RDW Plt Count Lymph % (Auto) [place] % (Auto) Lymph # [place] # Seg Neutrophils % PT INR D-Dimer Heparin Anti-Xa Level POC ABG pH 7.318 L POC ABG pCO2 56.7 H POC ABG pO2 215 H Sodium Potassium Chloride Carbon Dioxide BUN Creatinine Glucose POC Glucose 108 H 152 H Lactic Acid Calcium Iron TIBC Total Bilirubin AST ALT Lactate Dehydrogenase Total Creatine Kinase CK-MB (CK-2) CK-MB (CK-2) Rel Index Troponin T C-Reactive Protein NT-Pro-B Natriuret Pep Total Protein Albumin HDL Cholesterol Folate Ur Specific [place] Urine WBC (Auto) Crossmatch 01/02/19 01/03/19 01/03/19 17:37 04:28 10:57 WBC RBC Hgb 11.6 L Hct RDW Plt Count 105 L Lymph % (Auto) [place] % (Auto) Lymph # [place] # Seg Neutrophils % PT INR D-Dimer Heparin Anti-Xa Level POC ABG pH POC ABG pCO2 POC ABG pO2 Sodium Potassium Chloride Carbon Dioxide BUN Creatinine Glucose 111 H POC Glucose 107 H Lactic Acid Calcium Iron TIBC Total Bilirubin AST ALT Lactate Dehydrogenase Total Creatine Kinase CK-MB (CK-2) CK-MB (CK-2) Rel Index Troponin T C-Reactive Protein NT-Pro-B Natriuret Pep Total Protein Albumin HDL Cholesterol Folate Ur Specific [place] Urine WBC (Auto) Crossmatch 01/03/19 01/03/19 01/03/19 15:16 17:33 20:35 WBC RBC Hgb Hct RDW Plt Count Lymph % (Auto) [place] % (Auto) Lymph # [place] # Seg Neutrophils % PT INR D-Dimer Heparin Anti-Xa Level POC ABG pH POC ABG pCO2 POC ABG pO2 Sodium Potassium Chloride Carbon Dioxide BUN Creatinine Glucose POC Glucose 135 H 166 H 114 H Lactic Acid Calcium Iron TIBC Total Bilirubin AST ALT Lactate Dehydrogenase Total Creatine Kinase CK-MB (CK-2) CK-MB (CK-2) Rel Index Troponin T C-Reactive Protein NT-Pro-B Natriuret Pep Total Protein Albumin HDL Cholesterol Folate Ur Specific [place] Urine WBC (Auto) Crossmatch 01/04/19 01/04/19 01/04/19 01:32 04:47 04:47 WBC 4.2 L RBC Hgb 11.5 L Hct 34.9 L RDW 15.8 H Plt Count 119 L Lymph % (Auto) [place] % (Auto) Lymph # [place] # Seg Neutrophils % PT INR D-Dimer Heparin Anti-Xa Level POC ABG pH POC ABG pCO2 POC ABG pO2 Sodium Potassium 3.3 L Chloride Carbon Dioxide BUN Creatinine Glucose 110 H POC Glucose 114 H Lactic Acid Calcium 8.3 L Iron TIBC Total Bilirubin AST ALT Lactate Dehydrogenase Total Creatine Kinase CK-MB (CK-2) CK-MB (CK-2) Rel Index Troponin T C-Reactive Protein NT-Pro-B Natriuret Pep Total Protein Albumin HDL Cholesterol Folate Ur Specific [place] Urine WBC (Auto) Crossmatch 01/04/19 01/04/19 01/04/19 08:51 11:41 16:25 WBC RBC Hgb Hct RDW Plt Count Lymph % (Auto) [place] % (Auto) Lymph # [place] # Seg Neutrophils % PT INR D-Dimer Heparin Anti-Xa Level POC ABG pH POC ABG pCO2 POC ABG pO2 Sodium Potassium Chloride Carbon Dioxide BUN Creatinine Glucose POC Glucose 122 H 146 H 142 H Lactic Acid Calcium Iron TIBC Total Bilirubin AST ALT Lactate Dehydrogenase Total Creatine Kinase CK-MB (CK-2) CK-MB (CK-2) Rel Index Troponin T C-Reactive Protein NT-Pro-B Natriuret Pep Total Protein Albumin HDL Cholesterol Folate Ur Specific [place] Urine WBC (Auto) Crossmatch 01/04/19 01/05/19 01/05/19 21:16 04:41 04:41 WBC RBC Hgb Hct RDW 15.9 H Plt Count 126 L Lymph % (Auto) [place] % (Auto) Lymph # [place] # Seg Neutrophils % PT INR D-Dimer Heparin Anti-Xa Level POC ABG pH POC ABG pCO2 POC ABG pO2 Sodium Potassium 3.4 L Chloride Carbon Dioxide BUN Creatinine Glucose 128 H POC Glucose 140 H Lactic Acid Calcium Iron TIBC Total Bilirubin AST ALT Lactate Dehydrogenase Total Creatine Kinase CK-MB (CK-2) CK-MB (CK-2) Rel Index Troponin T C-Reactive Protein NT-Pro-B Natriuret Pep Total Protein Albumin HDL Cholesterol Folate Ur Specific [place] Urine WBC (Auto) Crossmatch 01/05/19 01/05/19 01/05/19 08:10 11:52 17:24 WBC RBC Hgb Hct RDW Plt Count Lymph % (Auto) [place] % (Auto) Lymph # [place] # Seg Neutrophils % PT INR D-Dimer Heparin Anti-Xa Level POC ABG pH POC ABG pCO2 POC ABG pO2 Sodium Potassium Chloride Carbon Dioxide BUN Creatinine Glucose POC Glucose 134 H 178 H 124 H Lactic Acid Calcium Iron TIBC Total Bilirubin AST ALT Lactate Dehydrogenase Total Creatine Kinase CK-MB (CK-2) CK-MB (CK-2) Rel Index Troponin T C-Reactive Protein NT-Pro-B Natriuret Pep Total Protein Albumin HDL Cholesterol Folate Ur Specific [place] Urine WBC (Auto) Crossmatch 01/05/19 01/06/19 01/06/19 21:36 03:12 03:12 WBC RBC Hgb Hct RDW 16.7 H Plt Count 138 L Lymph % (Auto) [place] % (Auto) Lymph # [place] # Seg Neutrophils % PT INR D-Dimer Heparin Anti-Xa Level POC ABG pH POC ABG pCO2 POC ABG pO2 Sodium Potassium 3.4 L Chloride Carbon Dioxide BUN Creatinine Glucose 112 H POC Glucose 119 H Lactic Acid Calcium Iron TIBC Total Bilirubin AST ALT Lactate Dehydrogenase Total Creatine Kinase CK-MB (CK-2) CK-MB (CK-2) Rel Index Troponin T C-Reactive Protein NT-Pro-B Natriuret Pep Total Protein Albumin HDL Cholesterol Folate Ur Specific [place] Urine WBC (Auto) Crossmatch 01/06/19 01/06/19 01/06/19 08:11 10:22 10:22 WBC RBC Hgb Hct RDW 16.7 H Plt Count Lymph % (Auto) [place] % (Auto) Lymph # [place] # Seg Neutrophils % PT INR D-Dimer Heparin Anti-Xa Level POC ABG pH POC ABG pCO2 POC ABG pO2 Sodium Potassium 3.5 L Chloride Carbon Dioxide BUN Creatinine Glucose 151 H POC Glucose 112 H Lactic Acid Calcium Iron TIBC Total Bilirubin AST ALT Lactate Dehydrogenase Total Creatine Kinase CK-MB (CK-2) CK-MB (CK-2) Rel Index Troponin T C-Reactive Protein NT-Pro-B Natriuret Pep Total Protein Albumin HDL Cholesterol Folate Ur Specific [place] Urine WBC (Auto) Crossmatch 01/06/19 01/06/19 01/06/19 11:51 17:04 17:57 WBC RBC Hgb Hct RDW Plt Count Lymph % (Auto) [place] % (Auto) Lymph # [place] # Seg Neutrophils % PT INR D-Dimer Heparin Anti-Xa Level POC ABG pH POC ABG pCO2 POC ABG pO2 Sodium Potassium Chloride Carbon Dioxide BUN Creatinine Glucose POC Glucose 148 H 135 H Lactic Acid Calcium Iron TIBC Total Bilirubin AST ALT Lactate Dehydrogenase Total Creatine Kinase CK-MB (CK-2) CK-MB (CK-2) Rel Index Troponin T C-Reactive Protein NT-Pro-B Natriuret Pep 4783 H Total Protein Albumin HDL Cholesterol Folate Ur Specific [place] Urine WBC (Auto) Crossmatch 01/06/19 01/07/19 01/07/19 20:59 08:35 10:34 WBC RBC Hgb Hct RDW Plt Count Lymph % (Auto) [place] % (Auto) Lymph # [place] # Seg Neutrophils % PT INR D-Dimer Heparin Anti-Xa Level POC ABG pH POC ABG pCO2 POC ABG pO2 Sodium Potassium Chloride Carbon Dioxide BUN Creatinine Glucose 129 H POC Glucose 115 H 143 H Lactic Acid Calcium Iron TIBC Total Bilirubin AST ALT Lactate Dehydrogenase Total Creatine Kinase CK-MB (CK-2) CK-MB (CK-2) Rel Index Troponin T C-Reactive Protein NT-Pro-B Natriuret Pep Total Protein Albumin HDL Cholesterol Folate Ur Specific [place] Urine WBC (Auto) Crossmatch 01/07/19 11:31 WBC RBC Hgb Hct RDW Plt Count Lymph % (Auto) [place] % (Auto) Lymph # [place] # Seg Neutrophils % PT INR D-Dimer Heparin Anti-Xa Level POC ABG pH POC ABG pCO2 POC ABG pO2 Sodium Potassium Chloride Carbon Dioxide BUN Creatinine Glucose POC Glucose 144 H Lactic Acid Calcium Iron TIBC Total Bilirubin AST ALT Lactate Dehydrogenase Total Creatine Kinase CK-MB (CK-2) CK-MB (CK-2) Rel Index Troponin T C-Reactive Protein NT-Pro-B Natriuret Pep Total Protein Albumin HDL Cholesterol Folate Ur Specific [place] Urine WBC (Auto) Crossmatch Chest x-ray: report reviewed, image reviewed CT scan - chest: report reviewed, image reviewed Additional Studies: Chest xray done 01/06/19 IMPRESSION: Prominent cardiac silhouette. Right pleural effusion with the right lung base atelectasis or infiltrate. Patchy left perihilar atelectasis or infiltrate. Correlate for possible congestive heart failure CT scan of chest done 01/06/19 IMPRESSION 1. Improving right pleural effusion, with a small pneumothorax noted. Findings suggest interval thoracentesis 2. Stable left effusion 3. Bibasilar adjacent compressive atelectasis Allied health notes reviewed: nursing
--- NOTE | 2019-01-07 17:31 | Progress Note ---
Assessment and Plan Cultures: 12/28/2018 sputum culture: Normal respiratory ramses 12/29/2018 right pleural fluid culture: No growth in 24 hours / no organisms, no PMN, few mononuclear cells 12/29/2018 blood culture: no growth 12/29/2018 urine culture: No growth in 24 hours A/P: 73-year-old male with history of morbid obesity, ELIGIO on CPAP, CAD s/p CABG, diabetes, restless leg syndrome was brought to the emergency room on 12/28/2018 with a respiratory arrest: 1) Shock, etiology unclear: septic v/s cardiogenic. Resolved. No fever prior to admission, no leucocytosis. Fever resolved. Unclear etiology?. Large R pleural effusion, ?underlying pneumonia. No urinary symptoms, urine culture with no growth (UA with some pyuria). 2) Acute respiratory failure: better; off the vent on BIPAP 3) Large R pleural effusion: s/p thoracentesis and chest tube on 12/29/2018. Cannot rule out underlying pneumonia v/s aspiration from seizure. Pleural fluid studies pending/no sent. Pleural Gram stain not c/w empyema. Pleural culture so far negative. 12/28/2018 sputum culture showed Normal respiratory ramses. legionella not detected 4) ?Seizures: per family with previous history of seizures. Neurology on board. 5) PCN allergy: remote allergy as a child. agreeable to try Cephalosporins. 6) Thrombocytopenia: better? meds Recs: continue IV Cefepime 2 gm q8 hrs + IV Flagyl 500 mg q8 hrs D 8 of 10 At discharge will do levaquin 750 mg PO qday and flagyl 500 mg PO TID total 10 days until 01/08 Will follow Alyssa Cruz MD Infectious Diseases [facility] M [phone] O [phone] Subjective Date of service: 01/07/19 Principal diagnosis: dvt - low plt Interval history: Alert talking on NC o2 in NAD no fever ROS: denies SOB, N//V/D Objective - Exam Narrative Exam: General appearance: alert on NC 02 Eyes: anicteric sclerae, moist conjunctivae; no lid-lag; PERRLA HENT: Atraumatic; oropharynx limited Neck: Trachea midline; supple, no thyromegaly or lymphadenopathy Lungs: coarse himanshu, with + right sided chest tube bloody fluid CV: RRR Abdomen: Soft, obses non-tender Extremities: himanshu arm/legs edema Skin: himanshu arms ecchymoses Psych: alert no agitated Neuro: alert talking moving all ext - Constitutional Vitals: Vital Signs Temp Pulse Resp BP Pulse Ox 97.9 F 87 35 H 115/79 94 01/07/19 12:00 01/07/19 17:15 01/07/19 17:15 01/07/19 13:01 01/07/19 17:15 Temperature -Last 24 Hours Temperature 97.9 F Temperature 97.7 F Temperature 97.9 F Temperature 98.7 F Temperature 97.9 F - Labs CBC & Chem 7: 01/07/19 03:49 01/07/19 10:34 Labs: Abnormal lab results 01/06/19 01/06/19 01/06/19 Range/Units 17:04 17:57 20:59 Glucose (75-100) mg/dL POC Glucose 135 H 115 H (70-105) NT-Pro-B Natriuret Pep 4783 H (0-900) pg/mL 01/07/19 01/07/19 01/07/19 Range/Units 08:35 10:34 11:31 Glucose 129 H (75-100) mg/dL POC Glucose 143 H 144 H (70-105) NT-Pro-B Natriuret Pep (0-900) pg/mL
[2019-01-07] MEDS: FLAGYL PO SCH ×2 (19:15→21:40)
[2019-01-08] MEDS: HALDOL IM PRN (01:50)
--- NOTE | 2019-01-08 04:52 | Hem/Onc Progress Note ---
Assessment and Plan 1. Deep venous thrombosis, left common femoral and right peroneal; bilateral leg swelling present. The patient was placed on heparin drip. Her platelets have slightly fallen down. 2. The patient's platelet count at admission was 99 and then 196, 125, and 114. I do not have any information about the patient's baseline platelet count. it is possible that the patient's baseline platelets are also low. 3. History of diabetes. 4. History of coronary artery disease. 5. Radiology showed right pleural effusion at one time. 6. History of seizure disorder as per the notes. 7. Myocardial infarction. 8. Status post coronary artery bypass graft. 9. Electrolyte imbalance. 10. History of cerebrovascular accident. 11. History of pneumonia. 12. h/o rt chest tube - h/o pl effusion 01/08 plt >100 US abdo limited - does not mention liver and spleen size. 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 uses CPAP at home low folate - on replacement the plan was to start eliquis - but as thoracentesis planned -this is on hold - Patient Problems (1) DVT (deep venous thrombosis) Current Visit: Yes Status: Acute (2) Thrombocytopenia Current Visit: Yes Status: Acute Subjective Date of service: 01/08/19 Principal diagnosis: dvt - low plt Interval history: thoracentesis due Objective - Constitutional Vitals: Last Vital Signs Temp 98.6 F 01/08/19 04:00 Pulse 67 01/08/19 04:01 Resp 20 01/08/19 04:01 BP 135/65 01/08/19 04:01 Pulse Ox 98 01/08/19 04:01 Pain Intensity (0-10): denies any pain General appearance: no acute distress Performance status: 3-limited selfcare - EENT Eyes: EOM intact ENT: hearing intact Lymph node exam: negative cervical - Neck Neck: normal ROM - Respiratory Respiratory effort: Positive: normal Respiratory: bilateral: CTA - Cardiovascular Heart Sounds: Present: S1 & S2 Extremities: No edema - Gastrointestinal General gastrointestinal: Present: soft, non-tender Rectal Exam: deferred - Genitourinary Male genitourinary: Present: deferred - Integumentary Integumentary: warm - Musculoskeletal Musculoskeletal: strength equal bilaterally - Neurologic Neurologic: moves all extremities - Labs Lab Results: Laboratory Results - last 24 hr 01/02/19 01/07/19 01/07/19 05:26 08:35 10:34 Heparin Anti-Xa, Unfract Negative Sodium 143 Potassium 4.1 Chloride 102.2 Carbon Dioxide 30 Anion Gap 15 BUN 12 Creatinine 1.1 Estimated GFR > 60 BUN/Creatinine Ratio 11 Glucose 129 H POC Glucose 143 H Calcium 8.5 Heparin-induced Plt Ab Negative UF Heparin High Dose 0 THOMAS UFH Low Dose 0.1 0 THOMAS UFH Low Dose 0.5 0 01/07/19 01/07/19 01/07/19 11:31 16:16 20:49 Heparin Anti-Xa, Unfract Sodium Potassium Chloride Carbon Dioxide Anion Gap BUN Creatinine Estimated GFR BUN/Creatinine Ratio Glucose POC Glucose 144 H 133 H 138 H Calcium Heparin-induced Plt Ab UF Heparin High Dose THOMAS UFH Low Dose 0.1 THOMAS UFH Low Dose 0.5 01/08/19 00:19 Heparin Anti-Xa, Unfract Sodium Potassium Chloride Carbon Dioxide Anion Gap BUN Creatinine Estimated GFR BUN/Creatinine Ratio Glucose POC Glucose 129 H Calcium Heparin-induced Plt Ab UF Heparin High Dose THOMAS UFH Low Dose 0.1 THOMAS UFH Low Dose 0.5 Medications & Allergies - Medications Allergies/Adverse Reactions: Allergies Penicillins Allergy (Verified 12/29/18 04:18) Unknown Home Medications: Home Medications Medication Instructions Recorded Confirmed Last Taken Type Aspirin 81 mg PO DAILY 12/30/18 12/30/18 12/30/18 History AtorvaSTATin 40 mg PO HS 12/30/18 12/30/18 12/28/18 History Clopidogrel Bisulfate [Clopidogrel] 75 mg PO DAILY 12/30/18 12/30/18 12/28/18 History Furosemide 40 mg PO DAILY 12/30/18 12/30/18 12/28/18 History Gabapentin [Neurontin] 300 mg PO HS 12/30/18 12/30/18 12/28/18 History Losartan [Cozaar] 50 mg .ROUTE DAILY 12/30/18 12/30/18 12/28/18 History Metformin ER (Nf) 500 gm .ROUTE BID 12/30/18 12/30/18 12/28/18 History Metoprolol 50 mg PO DAILY 12/30/18 12/30/18 12/28/18 History Potassium 10 meq PO DAILY 12/30/18 12/30/18 12/28/18 History Ropinirole HCl 1 mg PO DAILY 12/30/18 12/30/18 12/28/18 History Sertraline 25 mg PO DAILY 12/30/18 12/30/18 12/28/18 History Sertraline 75 mg PO DAILY 12/30/18 12/30/18 12/28/18 History Active Medications: Generic Name Dose Route Start Last Admin Trade Name Freq PRN Reason Stop Dose Admin Acetaminophen 650 mg 12/29/18 04:49 12/30/18 08:33 Tylenol [place] 650 mg Q4H PRN Administration Fever >101 Albuterol/Ipratropium 1 ampul 01/01/19 14:00 01/07/19 21:33 Duoneb *Not For Prn Use* IH 1 ampul Q6HRT WENDY Administration Atorvastatin Calcium 40 mg 01/04/19 22:00 01/07/19 21:38 Lipitor PO 40 mg QHS WENDY Administration Dextrose 50 ml 12/29/18 04:47 D50w (25gm) Syringe IV PRN PRN Hypoglycemia Famotidine 20 mg 01/04/19 10:00 01/07/19 21:38 Pepcid PO 20 mg BID WENDY Administration Folic Acid 1 mg 01/06/19 12:00 01/07/19 10:44 Folvite PO 1 mg QDAY WENDY Administration Furosemide 20 mg 01/06/19 18:00 01/07/19 17:46 Lasix IV 20 mg 0600,1800 WENDY Administration Haloperidol Lactate 5 mg 01/07/19 11:33 01/08/19 01:50 Haldol IM 5 mg Q6H PRN Administration Agitation Hydralazine HCl 10 mg 01/01/19 13:23 Apresoline IV Q4HR PRN SBP >/=170 Cefepime HCl 2 gm in 100 mls @ 200 mls/hr 12/31/18 14:00 01/07/19 21:35 Maxipime/Ns 2 Gm/100 Ml IV 01/08/19 13:59 200 mls/hr Q8HR WENDY Administration Protocol Insulin Human Regular 0 units 01/04/19 11:30 01/07/19 16:50 Humulin R SUB-Q Not Given ACHS WENDY Protocol Levetiracetam 500 mg 01/04/19 10:00 01/07/19 21:38 Keppra PO 500 mg BID WENDY Administration Losartan Potassium 50 mg 01/04/19 11:00 01/07/19 10:45 Cozaar PO 50 mg DAILY WENDY Administration Metoprolol Tartrate 12.5 mg 01/03/19 11:00 01/07/19 21:39 Lopressor PO 12.5 mg BID WENDY Administration Metronidazole 500 mg 01/07/19 18:00 01/07/19 21:40 Flagyl PO 500 mg Q8HR WENDY Administration Protocol Ondansetron HCl 4 mg 12/29/18 04:49 Zofran IV Q8H PRN Nausea And Vomiting Zolpidem Tartrate 5 mg 01/07/19 11:08 01/07/19 21:48 Ambien PO 5 mg QHS PRN Administration Sleep
[2019-01-08 05:56] LABS: Hematocrit 39.9 % (35.5-45.6); Hemoglobin 13.2 gm/dl (11.8-15.2); Mean Corpuscular HGB Conc 33 % (32-34); Mean Corpuscular Volume 89 fl (84-94); Platelet Count 172 K/mm3 (140-440); Red Blood Count 4.46 M/mm3 (3.65-5.03); Red Cell Distribution Width 16.9 % (13.2-15.2)
[2019-01-08] MEDS: MAXIPIME/NS 2 GM/100 ML 2 GM/100 ML BAG IV SCH (06:03)
[2019-01-08] MEDS: LASIX IV SCH ×2 (06:04→18:39)
[2019-01-08] MEDS: FLAGYL PO SCH ×3 (06:05→22:10)
[2019-01-08 06:17] LABS: BUN/Creatinine Ratio 14; Blood Urea Nitrogen 14 mg/dL (9-20); Calcium 8.5 mg/dL (8.4-10.2); Hemolysis Index 13
[2019-01-08] MEDS: DUONEB *Not for PRN Use IH SCH ×4 (07:07→20:29)
[2019-01-08] MEDS: HumuLIN R SUB-Q SCH ×4 (08:30→22:32)
[2019-01-08] MEDS: COZAAR PO SCH (09:27)
[2019-01-08] MEDS: KEPPRA PO SCH ×2 (09:28→21:34)
[2019-01-08] MEDS: PEPCID PO SCH ×2 (09:28→21:36)
[2019-01-08] MEDS: LOPRESSOR PO SCH ×2 (09:28→21:36)
[2019-01-08] MEDS: FOLVITE PO SCH (09:28)
--- NOTE | 2019-01-08 10:50 | Progress Note ---
Assessment and Plan Cont present cardiac management. Pt appears to be pending thoracentesis in the near future - Eliquis and Plavix held. Encourage increased activity - will re consult PT. F/u BMP. Can consider ischemic evaluation once medically stabilized. The patient has been seen in conjunction with Dr. Harding who agrees with the assessment and plan of care. - Patient Problems (1) Acute respiratory failure Current Visit: Yes Status: Acute (2) CAD (coronary artery disease) Current Visit: Yes Status: Chronic Qualifiers: Coronary Disease-Associated Artery/Lesion type: [place] artery (3) Hx of CABG Current Visit: Yes Status: Chronic (4) Sepsis Current Visit: Yes Status: Suspected (5) Pneumonia Current Visit: Yes Status: Suspected (6) Pleural effusion Current Visit: Yes Status: Resolved (7) Non-STEMI (non-ST elevated myocardial infarction) Current Visit: Yes Status: Acute (8) HTN (hypertension) Current Visit: Yes Status: Chronic (9) Diabetes mellitus Current Visit: Yes Status: Chronic (10) History of CVA (cerebrovascular accident) Current Visit: Yes Status: Chronic (11) History of left-sided carotid endarterectomy Current Visit: Yes Status: Chronic (12) History of seizure Current Visit: Yes Status: Chronic (13) Anemia Current Visit: Yes Status: Acute Qualifiers: Anemia type: unspecified type Qualified Code(s): D64.9 - Anemia, unspecified (14) Thrombocytopenia Current Visit: Yes Status: Acute (15) DVT (deep venous thrombosis) Current Visit: Yes Status: Acute Subjective Date of service: 01/08/19 Principal diagnosis: dvt - low plt Interval history: pt resting in bed, on O2 via NC. Intermittently confused and agitated overnight. Objective Last Vital Signs Temp 97.8 F 01/08/19 08:00 Pulse 65 01/08/19 10:00 Resp 27 H 01/08/19 10:00 BP 119/63 01/08/19 10:00 Pulse Ox 84 01/08/19 10:00 - Physical Examination General: No Apparent Distress HEENT: Positive: EOMI, Normocephaly, Mucus Membranes Moist Neck: Positive: neck supple, trachea midline Cardiac: Positive: Reg Rate and Rhythm, S1/S2 Lungs: Positive: Decreased Breath Sounds Neuro: Positive: Grossly Intact Abdomen: Positive: Soft, Active Bowel Sounds. Negative: Tender Skin: Positive: Clear. Negative: Rash Musculoskeletal: Normal Range of Motion Extremities: Present: +1 Edema (bilateral leg edema) - Labs and Meds CBC 01/08/19 Range/Units 05:11 WBC 6.2 (4.5-11.0) K/mm3 RBC 4.46 (3.65-5.03) M/mm3 Hgb 13.2 (11.8-15.2) gm/dl Hct 39.9 (35.5-45.6) % Plt Count 172 (140-440) K/mm3 Comprehensive Metabolic Panel 01/07/19 01/08/19 Range/Units 10:34 05:11 Sodium 143 144 (137-145) mmol/L Potassium 4.1 4.3 (3.6-5.0) mmol/L Chloride 102.2 103.5 (98-107) mmol/L Carbon Dioxide 30 30 (22-30) mmol/L BUN 12 14 (9-20) mg/dL Creatinine 1.1 1.0 (0.8-1.5) mg/dL Glucose 129 H 144 H (75-100) mg/dL Calcium 8.5 8.5 (8.4-10.2) mg/dL - Imaging and Cardiology EKG: image reviewed Echo: report reviewed (12/29/2018: EF 45-50%) - Telemetry EKG Rhythm: Sinus Rhythm - EKG Sinus rhythms and dysrhythmias: sinus rhythm Ventricular dysrhythmias: ventricular premature com AV and intraventricular conduction: 1 AV block, intraventricular conducti Repolarization changes or abnormalities: nonspecific abnormality, ST segment, and/or T wave - Allied health notes Allied health notes reviewed: nursing
--- NOTE | 2019-01-08 14:15 | Progress Note ---
Assessment and Plan Patient sleeping at this time on BIPAP. Patient is on BIPAP 15/8, rate 20, FIO2 35%. O2 saturation 96%. Nursing staff told me patient awake and agitating most of the time.Patient given Haldol. Patient resting better.Patient Morbidly Obese. - Patient Problems (1) Acute respiratory failure Current Visit: Yes Status: Acute Plan to address problem: BIPAP 15/8, rate 20, FIO2 35%. Albuterol/atrovent aerosol treatments q 6 hours. Continue Cepepime. Continue famotidine. SCDs (2) Pleural effusion, right Current Visit: Yes Status: Acute Plan to address problem: Patient undergone thoracentesis. (3) CAD (coronary artery disease) Current Visit: Yes Status: Chronic Plan to address problem: Management as per cardiology. (4) Diabetes mellitus Current Visit: Yes Status: Chronic Plan to address problem: Management as per primary care. (5) HTN (hypertension) Current Visit: Yes Status: Chronic Plan to address problem: Management as per primary care. (6) History of CVA (cerebrovascular accident) Current Visit: Yes Status: Chronic Plan to address problem: Management as per primary care. Subjective Date of service: 01/08/19 Principal diagnosis: dvt - low plt Interval history: Patient sleeping at this time on BIPAP. Patient is on BIPAP 15/8, rate 20, FIO2 35%. O2 saturation 96%. Nursing staff told me patient awake and agitating most of the time.Patient given Haldol. Patient resting better.Patient Morbidly Obese. Objective Vital Signs - 12hr 01/08/19 01/08/19 01/08/19 03:01 04:00 04:01 Temperature 99.4 F Pulse Rate 90 89 67 Pulse Rate [ Anterior Bilateral Throughout] Pulse Rate [ Bilateral] Pulse Rate [ From Monitor] Pulse Rate [ 89 Right Dorsalis Pedis] Respiratory 21 25 H 20 Rate Respiratory Rate [Anterior Bilateral Throughout] Respiratory Rate [Bilateral ] Blood Pressure 124/76 135/65 O2 Sat by Pulse 95 90 98 Oximetry 01/08/19 01/08/19 01/08/19 05:01 06:01 07:01 Temperature Pulse Rate 84 93 H 86 Pulse Rate [ Anterior Bilateral Throughout] Pulse Rate [ Bilateral] Pulse Rate [ From Monitor] Pulse Rate [ Right Dorsalis Pedis] Respiratory 25 H 20 21 Rate Respiratory Rate [Anterior Bilateral Throughout] Respiratory Rate [Bilateral ] Blood Pressure 128/74 120/71 120/71 O2 Sat by Pulse 97 84 97 Oximetry 01/08/19 01/08/19 01/08/19 08:00 08:01 09:01 Temperature 97.8 F Pulse Rate 82 77 86 Pulse Rate [ 86 Anterior Bilateral Throughout] Pulse Rate [ 88 Bilateral] Pulse Rate [ 82 From Monitor] Pulse Rate [ Right Dorsalis Pedis] Respiratory 22 22 28 H Rate Respiratory 22 Rate [Anterior Bilateral Throughout] Respiratory 27 H Rate [Bilateral ] Blood Pressure 95/32 129/78 O2 Sat by Pulse 92 90 95 Oximetry 01/08/19 01/08/19 01/08/19 09:05 09:27 09:28 Temperature Pulse Rate 89 87 Pulse Rate [ Anterior Bilateral Throughout] Pulse Rate [ Bilateral] Pulse Rate [ From Monitor] Pulse Rate [ Right Dorsalis Pedis] Respiratory Rate Respiratory Rate [Anterior Bilateral Throughout] Respiratory Rate [Bilateral ] Blood Pressure 129/78 129/78 O2 Sat by Pulse 93 Oximetry 01/08/19 01/08/19 01/08/19 10:00 11:00 11:30 Temperature Pulse Rate 65 66 90 Pulse Rate [ Anterior Bilateral Throughout] Pulse Rate [ Bilateral] Pulse Rate [ From Monitor] Pulse Rate [ Right Dorsalis Pedis] Respiratory 27 H 23 35 H Rate Respiratory Rate [Anterior Bilateral Throughout] Respiratory Rate [Bilateral ] Blood Pressure 119/63 122/66 139/77 O2 Sat by Pulse 84 84 98 Oximetry 01/08/19 01/08/19 01/08/19 12:00 12:30 13:36 Temperature Pulse Rate 80 92 H Pulse Rate [ 85 Anterior Bilateral Throughout] Pulse Rate [ 84 Bilateral] Pulse Rate [ 85 From Monitor] Pulse Rate [ Right Dorsalis Pedis] Respiratory 18 24 Rate Respiratory 23 Rate [Anterior Bilateral Throughout] Respiratory 26 H Rate [Bilateral ] Blood Pressure 122/66 115/67 O2 Sat by Pulse 99 97 Oximetry 01/08/19 13:39 Temperature Pulse Rate Pulse Rate [ Anterior Bilateral Throughout] Pulse Rate [ Bilateral] Pulse Rate [ From Monitor] Pulse Rate [ Right Dorsalis Pedis] Respiratory Rate Respiratory Rate [Anterior Bilateral Throughout] Respiratory Rate [Bilateral ] Blood Pressure O2 Sat by Pulse 98 Oximetry Constitutional: no acute distress, alert, other (elderly looking morbidly obese CM normocephalic and withmildly increased work of breathing at rest) Eyes: non-icteric ENT: oropharynx moist Neck: supple, no lymphadenopathy, no JVD, other (large neck circumference) Effort: mildly labored Ascultation: Bilateral: diminished breath sounds, rhonchi (bases), other (Right chest tube) Percussion: Bilateral: not dull Cardiovascular: regular rate and rhythm, other (No R/M) Gastrointestinal: normoactive bowel sounds, soft, non-tender, non-distended Integumentary: normal Extremities: no cyanosis, pink and warm, pulses normal, no ischemia or petechiae, edema (1+) Neurologic: normal mental status, non-focal exam (grossly), pupils equal and round, CN II-XII normal, motor strength normal and Psychiatric: mood appropriate, affect normal CBC and BMP: 01/08/19 05:11 01/08/19 05:11 ABG, PT/INR, D-dimer: ABG POC ABG pH 7.318 (7.35-7.45) L 01/02/19 11:21 POC ABG pCO2 56.7 (35-45) H 01/02/19 11:21 POC ABG pO2 215 (80-105) H 01/02/19 11:21 POC ABG HCO3 29.1 (22-26 mml/L) 01/02/19 11:21 POC ABG Total CO2 31 (23-27mmol/L) 01/02/19 11:21 POC ABG O2 Sat 100 01/02/19 11:21 PT/INR, D-dimer PT 16.5 Sec. (12.2-14.9) H 12/30/18 18:17 INR 1.25 (0.87-1.13) H 12/30/18 18:17 D-Dimer 815.50 ng/mlDDU (0-234) H 12/28/18 23:58 Abnormal lab findings: Abnormal Labs 12/28/18 12/28/18 12/28/18 23:58 23:58 23:58 WBC RBC 2.24 L Hgb 6.7 L Hct 20.9 L RDW 16.4 H Plt Count 99 L Lymph % (Auto) 10.7 L [place] % (Auto) 7.9 H Lymph # 0.6 L [place] # Seg Neutrophils % 80.7 H PT INR D-Dimer 815.50 H Heparin Anti-Xa Level POC ABG pH POC ABG pCO2 POC ABG pO2 Sodium 148 H Potassium 2.3 L* Chloride 128.4 H Carbon Dioxide 12 L BUN Creatinine 0.4 L Glucose POC Glucose Lactic Acid Calcium 5.0 L* Iron TIBC Total Bilirubin AST ALT < 5 L Lactate Dehydrogenase Total Creatine Kinase 44 L CK-MB (CK-2) CK-MB (CK-2) Rel Index 4.3 H Troponin T C-Reactive Protein NT-Pro-B Natriuret Pep Total Protein 2.3 L Albumin 1.1 L HDL Cholesterol Folate Ur Specific Slick Urine WBC (Auto) Crossmatch 12/28/18 12/29/18 12/29/18 23:58 00:27 01:53 WBC RBC Hgb Hct RDW Plt Count Lymph % (Auto) [place] % (Auto) Lymph # [place] # Seg Neutrophils % PT INR D-Dimer Heparin Anti-Xa Level POC ABG pH 7.169 L POC ABG pCO2 POC ABG pO2 Sodium Potassium Chloride Carbon Dioxide BUN Creatinine Glucose POC Glucose Lactic Acid Calcium Iron TIBC Total Bilirubin AST ALT Lactate Dehydrogenase Total Creatine Kinase CK-MB (CK-2) CK-MB (CK-2) Rel Index Troponin T C-Reactive Protein NT-Pro-B Natriuret Pep 1209 H Total Protein Albumin HDL Cholesterol Folate Ur Specific Slick Urine WBC (Auto) Crossmatch See Detail 12/29/18 12/29/18 12/29/18 03:00 05:02 08:34 WBC RBC Hgb Hct RDW Plt Count Lymph % (Auto) [place] % (Auto) Lymph # [place] # Seg Neutrophils % PT INR D-Dimer Heparin Anti-Xa Level POC ABG pH 7.225 L POC ABG pCO2 57.9 H POC ABG pO2 Sodium Potassium Chloride Carbon Dioxide BUN Creatinine Glucose POC Glucose Lactic Acid Calcium Iron TIBC Total Bilirubin AST ALT Lactate Dehydrogenase Total Creatine Kinase 344 H CK-MB (CK-2) 7.9 H CK-MB (CK-2) Rel Index Troponin T 0.103 H* D C-Reactive Protein NT-Pro-B Natriuret Pep Total Protein Albumin HDL Cholesterol 34 L Folate Ur Specific Slick 1.033 H Urine WBC (Auto) 31.0 H Crossmatch 12/29/18 12/29/18 12/29/18 08:34 08:53 12:51 WBC RBC Hgb Hct RDW Plt Count Lymph % (Auto) [place] % (Auto) Lymph # [place] # Seg Neutrophils % PT INR D-Dimer Heparin Anti-Xa Level POC ABG pH POC ABG pCO2 POC ABG pO2 Sodium Potassium 5.7 H D Chloride Carbon Dioxide BUN 21 H Creatinine Glucose 124 H POC Glucose 119 H Lactic Acid Calcium Iron TIBC Total Bilirubin AST ALT Lactate Dehydrogenase Total Creatine Kinase 837 H CK-MB (CK-2) 10.5 H CK-MB (CK-2) Rel Index Troponin T 0.084 H C-Reactive Protein NT-Pro-B Natriuret Pep Total Protein Albumin HDL Cholesterol Folate Ur Specific Slick Urine WBC (Auto) Crossmatch 12/29/18 12/29/18 12/29/18 12:51 12:51 15:02 WBC RBC Hgb Hct RDW 16.0 H Plt Count Lymph % (Auto) [place] % (Auto) 13.3 H Lymph # [place] # 1.4 H Seg Neutrophils % PT INR D-Dimer Heparin Anti-Xa Level POC ABG pH POC ABG pCO2 POC ABG pO2 Sodium Potassium 5.4 H Chloride Carbon Dioxide 19 L 17 L BUN 21 H 21 H Creatinine Glucose 116 H 115 H POC Glucose Lactic Acid Calcium Iron TIBC Total Bilirubin 1.50 H AST 43 H ALT Lactate Dehydrogenase 405 H Total Creatine Kinase CK-MB (CK-2) CK-MB (CK-2) Rel Index Troponin T C-Reactive Protein NT-Pro-B Natriuret Pep Total Protein 6.2 L D Albumin 3.1 L HDL Cholesterol Folate Ur Specific Slick Urine WBC (Auto) Crossmatch 12/29/18 12/29/18 12/29/18 15:03 16:46 16:46 WBC RBC Hgb Hct RDW Plt Count Lymph % (Auto) [place] % (Auto) Lymph # [place] # Seg Neutrophils % PT INR D-Dimer Heparin Anti-Xa Level POC ABG pH POC ABG pCO2 POC ABG pO2 Sodium Potassium Chloride Carbon Dioxide BUN Creatinine Glucose POC Glucose 121 H Lactic Acid 2.70 H* Calcium Iron TIBC Total Bilirubin AST ALT Lactate Dehydrogenase Total Creatine Kinase CK-MB (CK-2) CK-MB (CK-2) Rel Index Troponin T C-Reactive Protein 2.80 H NT-Pro-B Natriuret Pep Total Protein Albumin HDL Cholesterol Folate Ur Specific Slick Urine WBC (Auto) Crossmatch 12/29/18 12/29/18 12/29/18 16:50 17:37 19:37 WBC RBC Hgb Hct RDW Plt Count Lymph % (Auto) [place] % (Auto) Lymph # [place] # Seg Neutrophils % PT INR D-Dimer Heparin Anti-Xa Level POC ABG pH POC ABG pCO2 POC ABG pO2 248 H Sodium Potassium Chloride Carbon Dioxide 21 L BUN 21 H Creatinine Glucose 123 H POC Glucose 113 H Lactic Acid Calcium Iron TIBC Total Bilirubin AST ALT Lactate Dehydrogenase Total Creatine Kinase CK-MB (CK-2) CK-MB (CK-2) Rel Index Troponin T C-Reactive Protein NT-Pro-B Natriuret Pep Total Protein Albumin HDL Cholesterol Folate Ur Specific Slick Urine WBC (Auto) Crossmatch 12/29/18 12/29/18 12/30/18 20:10 21:36 04:43 WBC RBC Hgb Hct RDW Plt Count Lymph % (Auto) [place] % (Auto) Lymph # [place] # Seg Neutrophils % PT INR D-Dimer Heparin Anti-Xa Level POC ABG pH 7.327 L POC ABG pCO2 POC ABG pO2 79 L Sodium Potassium Chloride Carbon Dioxide BUN Creatinine Glucose POC Glucose Lactic Acid 2.70 H* 2.80 H* Calcium Iron TIBC Total Bilirubin AST ALT Lactate Dehydrogenase Total Creatine Kinase CK-MB (CK-2) CK-MB (CK-2) Rel Index Troponin T C-Reactive Protein NT-Pro-B Natriuret Pep Total Protein Albumin HDL Cholesterol Folate Ur Specific Slick Urine WBC (Auto) Crossmatch 12/30/18 12/30/18 12/30/18 11:42 11:42 13:43 WBC RBC Hgb Hct RDW 16.4 H Plt Count 125 L Lymph % (Auto) [place] % (Auto) Lymph # [place] # Seg Neutrophils % PT INR D-Dimer Heparin Anti-Xa Level POC ABG pH 7.225 L POC ABG pCO2 54.7 H POC ABG pO2 Sodium Potassium Chloride 108.8 H Carbon Dioxide BUN Creatinine Glucose 105 H POC Glucose Lactic Acid Calcium 8.2 L Iron TIBC Total Bilirubin AST ALT Lactate Dehydrogenase Total Creatine Kinase CK-MB (CK-2) CK-MB (CK-2) Rel Index Troponin T C-Reactive Protein NT-Pro-B Natriuret Pep Total Protein Albumin HDL Cholesterol Folate Ur Specific Slick Urine WBC (Auto) Crossmatch 12/30/18 12/30/18 12/30/18 13:53 18:17 18:17 WBC RBC Hgb Hct RDW Plt Count 114 L Lymph % (Auto) [place] % (Auto) Lymph # [place] # Seg Neutrophils % PT 16.5 H INR 1.25 H D-Dimer Heparin Anti-Xa Level POC ABG pH POC ABG pCO2 POC ABG pO2 Sodium Potassium Chloride Carbon Dioxide BUN Creatinine Glucose POC Glucose Lactic Acid Calcium Iron TIBC Total Bilirubin AST ALT Lactate Dehydrogenase Total Creatine Kinase CK-MB (CK-2) CK-MB (CK-2) Rel Index Troponin T 0.060 H D C-Reactive Protein NT-Pro-B Natriuret Pep Total Protein Albumin HDL Cholesterol Folate Ur Specific Slick Urine WBC (Auto) Crossmatch 12/31/18 12/31/18 12/31/18 00:31 04:39 05:30 WBC RBC Hgb 10.9 L Hct 32.4 L RDW 16.1 H Plt Count 97 L Lymph % (Auto) [place] % (Auto) Lymph # [place] # Seg Neutrophils % PT INR D-Dimer Heparin Anti-Xa Level 0.12 L POC ABG pH 7.337 L POC ABG pCO2 POC ABG pO2 Sodium Potassium Chloride Carbon Dioxide BUN Creatinine Glucose POC Glucose Lactic Acid Calcium Iron TIBC Total Bilirubin AST ALT Lactate Dehydrogenase Total Creatine Kinase CK-MB (CK-2) CK-MB (CK-2) Rel Index Troponin T C-Reactive Protein NT-Pro-B Natriuret Pep Total Protein Albumin HDL Cholesterol Folate Ur Specific Slick Urine WBC (Auto) Crossmatch 12/31/18 12/31/18 12/31/18 05:30 16:27 18:40 WBC RBC Hgb Hct RDW Plt Count Lymph % (Auto) [place] % (Auto) Lymph # [place] # Seg Neutrophils % PT INR D-Dimer Heparin Anti-Xa Level POC ABG pH 7.246 L POC ABG pCO2 52.6 H POC ABG pO2 Sodium Potassium Chloride 110.5 H Carbon Dioxide BUN Creatinine Glucose 107 H POC Glucose 109 H Lactic Acid Calcium 8.2 L Iron TIBC Total Bilirubin 1.30 H AST ALT Lactate Dehydrogenase Total Creatine Kinase CK-MB (CK-2) CK-MB (CK-2) Rel Index Troponin T C-Reactive Protein NT-Pro-B Natriuret Pep Total Protein 5.1 L Albumin 2.3 L HDL Cholesterol Folate Ur Specific Slick Urine WBC (Auto) Crossmatch 12/31/18 01/01/19 01/01/19 21:37 03:05 04:25 WBC RBC Hgb Hct RDW Plt Count Lymph % (Auto) [place] % (Auto) Lymph # [place] # Seg Neutrophils % PT INR D-Dimer Heparin Anti-Xa Level POC ABG pH 7.278 L POC ABG pCO2 50.6 H POC ABG pO2 111 H Sodium Potassium Chloride Carbon Dioxide BUN Creatinine Glucose POC Glucose 108 H 147 H Lactic Acid Calcium Iron TIBC Total Bilirubin AST ALT Lactate Dehydrogenase Total Creatine Kinase CK-MB (CK-2) CK-MB (CK-2) Rel Index Troponin T C-Reactive Protein NT-Pro-B Natriuret Pep Total Protein Albumin HDL Cholesterol Folate Ur Specific Slick Urine WBC (Auto) Crossmatch 01/01/19 01/01/19 01/01/19 04:42 04:42 06:32 WBC 3.9 L RBC 3.54 L Hgb 10.7 L Hct 31.6 L RDW 16.3 H Plt Count 83 L Lymph % (Auto) [place] % (Auto) Lymph # [place] # Seg Neutrophils % PT INR D-Dimer Heparin Anti-Xa Level POC ABG pH POC ABG pCO2 POC ABG pO2 Sodium Potassium Chloride 109.8 H Carbon Dioxide BUN Creatinine Glucose 134 H POC Glucose 143 H Lactic Acid Calcium 8.1 L Iron TIBC Total Bilirubin AST ALT Lactate Dehydrogenase Total Creatine Kinase CK-MB (CK-2) CK-MB (CK-2) Rel Index Troponin T C-Reactive Protein NT-Pro-B Natriuret Pep Total Protein 4.9 L Albumin 2.3 L HDL Cholesterol Folate Ur Specific Slick Urine WBC (Auto) Crossmatch 01/01/19 01/01/19 01/01/19 07:33 11:37 13:55 WBC RBC Hgb Hct RDW Plt Count Lymph % (Auto) [place] % (Auto) Lymph # [place] # Seg Neutrophils % PT INR D-Dimer Heparin Anti-Xa Level POC ABG pH 7.242 L POC ABG pCO2 55.3 H POC ABG pO2 Sodium Potassium Chloride Carbon Dioxide BUN Creatinine Glucose POC Glucose 137 H 133 H Lactic Acid Calcium Iron TIBC Total Bilirubin AST ALT Lactate Dehydrogenase Total Creatine Kinase CK-MB (CK-2) CK-MB (CK-2) Rel Index Troponin T C-Reactive Protein NT-Pro-B Natriuret Pep Total Protein Albumin HDL Cholesterol Folate Ur Specific Slick Urine WBC (Auto) Crossmatch 04/01/01/19 01/01/19 15:44 16:51 21:35 WBC RBC Hgb Hct RDW Plt Count Lymph % (Auto) [place] % (Auto) Lymph # [place] # Seg Neutrophils % PT INR D-Dimer Heparin Anti-Xa Level POC ABG pH 7.298 L POC ABG pCO2 50.6 H POC ABG pO2 Sodium Potassium Chloride Carbon Dioxide BUN Creatinine Glucose POC Glucose 139 H 106 H Lactic Acid Calcium Iron TIBC Total Bilirubin AST ALT Lactate Dehydrogenase Total Creatine Kinase CK-MB (CK-2) CK-MB (CK-2) Rel Index Troponin T C-Reactive Protein NT-Pro-B Natriuret Pep Total Protein Albumin HDL Cholesterol Folate Ur Specific Slick Urine WBC (Auto) Crossmatch 01/02/19 01/02/19 01/02/19 03:13 04:40 05:09 WBC 3.9 L RBC Hgb Hct RDW 16.1 H Plt Count 94 L Lymph % (Auto) 7.5 L [place] % (Auto) 14.2 H Lymph # 0.3 L [place] # Seg Neutrophils % 76.5 H PT INR D-Dimer Heparin Anti-Xa Level POC ABG pH 7.206 L POC ABG pCO2 65.8 H POC ABG pO2 62 L Sodium Potassium Chloride Carbon Dioxide BUN Creatinine Glucose POC Glucose 124 H Lactic Acid Calcium Iron TIBC Total Bilirubin AST ALT Lactate Dehydrogenase Total Creatine Kinase CK-MB (CK-2) CK-MB (CK-2) Rel Index Troponin T C-Reactive Protein NT-Pro-B Natriuret Pep Total Protein Albumin HDL Cholesterol Folate Ur Specific Slick Urine WBC (Auto) Crossmatch 01/02/19 01/02/19 01/02/19 05:09 05:09 05:32 WBC RBC Hgb Hct RDW Plt Count Lymph % (Auto) [place] % (Auto) Lymph # [place] # Seg Neutrophils % PT INR D-Dimer Heparin Anti-Xa Level POC ABG pH POC ABG pCO2 POC ABG pO2 Sodium Potassium Chloride 107.4 H Carbon Dioxide BUN Creatinine Glucose 133 H POC Glucose 130 H Lactic Acid Calcium 8.3 L Iron 34 L TIBC 231 L Total Bilirubin AST ALT Lactate Dehydrogenase Total Creatine Kinase CK-MB (CK-2) CK-MB (CK-2) Rel Index Troponin T C-Reactive Protein NT-Pro-B Natriuret Pep Total Protein Albumin HDL Cholesterol Folate 6.01 L Ur Specific Slick Urine WBC (Auto) Crossmatch 01/02/19 01/02/19 01/02/19 10:25 11:21 11:42 WBC RBC Hgb Hct RDW Plt Count Lymph % (Auto) [place] % (Auto) Lymph # [place] # Seg Neutrophils % PT INR D-Dimer Heparin Anti-Xa Level POC ABG pH 7.318 L POC ABG pCO2 56.7 H POC ABG pO2 215 H Sodium Potassium Chloride Carbon Dioxide BUN Creatinine Glucose POC Glucose 108 H 152 H Lactic Acid Calcium Iron TIBC Total Bilirubin AST ALT Lactate Dehydrogenase Total Creatine Kinase CK-MB (CK-2) CK-MB (CK-2) Rel Index Troponin T C-Reactive Protein NT-Pro-B Natriuret Pep Total Protein Albumin HDL Cholesterol Folate Ur Specific Slick Urine WBC (Auto) Crossmatch 01/02/19 01/03/19 01/03/19 17:37 04:28 10:57 WBC RBC Hgb 11.6 L Hct RDW Plt Count 105 L Lymph % (Auto) [place] % (Auto) Lymph # [place] # Seg Neutrophils % PT INR D-Dimer Heparin Anti-Xa Level POC ABG pH POC ABG pCO2 POC ABG pO2 Sodium Potassium Chloride Carbon Dioxide BUN Creatinine Glucose 111 H POC Glucose 107 H Lactic Acid Calcium Iron TIBC Total Bilirubin AST ALT Lactate Dehydrogenase Total Creatine Kinase CK-MB (CK-2) CK-MB (CK-2) Rel Index Troponin T C-Reactive Protein NT-Pro-B Natriuret Pep Total Protein Albumin HDL Cholesterol Folate Ur Specific Slick Urine WBC (Auto) Crossmatch 01/03/19 01/03/19 01/03/19 15:16 17:33 20:35 WBC RBC Hgb Hct RDW Plt Count Lymph % (Auto) [place] % (Auto) Lymph # [place] # Seg Neutrophils % PT INR D-Dimer Heparin Anti-Xa Level POC ABG pH POC ABG pCO2 POC ABG pO2 Sodium Potassium Chloride Carbon Dioxide BUN Creatinine Glucose POC Glucose 135 H 166 H 114 H Lactic Acid Calcium Iron TIBC Total Bilirubin AST ALT Lactate Dehydrogenase Total Creatine Kinase CK-MB (CK-2) CK-MB (CK-2) Rel Index Troponin T C-Reactive Protein NT-Pro-B Natriuret Pep Total Protein Albumin HDL Cholesterol Folate Ur Specific Slick Urine WBC (Auto) Crossmatch 01/04/19 01/04/19 01/04/19 01:32 04:47 04:47 WBC 4.2 L RBC Hgb 11.5 L Hct 34.9 L RDW 15.8 H Plt Count 119 L Lymph % (Auto) [place] % (Auto) Lymph # [place] # Seg Neutrophils % PT INR D-Dimer Heparin Anti-Xa Level POC ABG pH POC ABG pCO2 POC ABG pO2 Sodium Potassium 3.3 L Chloride Carbon Dioxide BUN Creatinine Glucose 110 H POC Glucose 114 H Lactic Acid Calcium 8.3 L Iron TIBC Total Bilirubin AST ALT Lactate Dehydrogenase Total Creatine Kinase CK-MB (CK-2) CK-MB (CK-2) Rel Index Troponin T C-Reactive Protein NT-Pro-B Natriuret Pep Total Protein Albumin HDL Cholesterol Folate Ur Specific [place]lick Urine WBC (Auto) Crossmatch 01/04/19 01/04/19 01/04/19 08:51 11:41 16:25 WBC RBC Hgb Hct RDW Plt Count Lymph % (Auto) [place] % (Auto) Lymph # [place] # Seg Neutrophils % PT INR D-Dimer Heparin Anti-Xa Level POC ABG pH POC ABG pCO2 POC ABG pO2 Sodium Potassium Chloride Carbon Dioxide BUN Creatinine Glucose POC Glucose 122 H 146 H 142 H Lactic Acid Calcium Iron TIBC Total Bilirubin AST ALT Lactate Dehydrogenase Total Creatine Kinase CK-MB (CK-2) CK-MB (CK-2) Rel Index Troponin T C-Reactive Protein NT-Pro-B Natriuret Pep Total Protein Albumin HDL Cholesterol Folate Ur Specific Slick Urine WBC (Auto) Crossmatch 01/04/19 01/05/19 01/05/19 21:16 04:41 04:41 WBC RBC Hgb Hct RDW 15.9 H Plt Count 126 L Lymph % (Auto) [place] % (Auto) Lymph # [place] # Seg Neutrophils % PT INR D-Dimer Heparin Anti-Xa Level POC ABG pH POC ABG pCO2 POC ABG pO2 Sodium Potassium 3.4 L Chloride Carbon Dioxide BUN Creatinine Glucose 128 H POC Glucose 140 H Lactic Acid Calcium Iron TIBC Total Bilirubin AST ALT Lactate Dehydrogenase Total Creatine Kinase CK-MB (CK-2) CK-MB (CK-2) Rel Index Troponin T C-Reactive Protein NT-Pro-B Natriuret Pep Total Protein Albumin HDL Cholesterol Folate Ur Specific [place]lick Urine WBC (Auto) Crossmatch 01/05/19 01/05/19 01/05/19 08:10 11:52 17:24 WBC RBC Hgb Hct RDW Plt Count Lymph % (Auto) [place] % (Auto) Lymph # [place] # Seg Neutrophils % PT INR D-Dimer Heparin Anti-Xa Level POC ABG pH POC ABG pCO2 POC ABG pO2 Sodium Potassium Chloride Carbon Dioxide BUN Creatinine Glucose POC Glucose 134 H 178 H 124 H Lactic Acid Calcium Iron TIBC Total Bilirubin AST ALT Lactate Dehydrogenase Total Creatine Kinase CK-MB (CK-2) CK-MB (CK-2) Rel Index Troponin T C-Reactive Protein NT-Pro-B Natriuret Pep Total Protein Albumin HDL Cholesterol Folate Ur Specific Slick Urine WBC (Auto) Crossmatch 01/05/19 01/06/19 01/06/19 21:36 03:12 03:12 WBC RBC Hgb Hct RDW 16.7 H Plt Count 138 L Lymph % (Auto) [place] % (Auto) Lymph # [place] # Seg Neutrophils % PT INR D-Dimer Heparin Anti-Xa Level POC ABG pH POC ABG pCO2 POC ABG pO2 Sodium Potassium 3.4 L Chloride Carbon Dioxide BUN Creatinine Glucose 112 H POC Glucose 119 H Lactic Acid Calcium Iron TIBC Total Bilirubin AST ALT Lactate Dehydrogenase Total Creatine Kinase CK-MB (CK-2) CK-MB (CK-2) Rel Index Troponin T C-Reactive Protein NT-Pro-B Natriuret Pep Total Protein Albumin HDL Cholesterol Folate Ur Specific Slick Urine WBC (Auto) Crossmatch 01/06/19 01/06/19 01/06/19 08:11 10:22 10:22 WBC RBC Hgb Hct RDW 16.7 H Plt Count Lymph % (Auto) [place] % (Auto) Lymph # [place] # Seg Neutrophils % PT INR D-Dimer Heparin Anti-Xa Level POC ABG pH POC ABG pCO2 POC ABG pO2 Sodium Potassium 3.5 L Chloride Carbon Dioxide BUN Creatinine Glucose 151 H POC Glucose 112 H Lactic Acid Calcium Iron TIBC Total Bilirubin AST ALT Lactate Dehydrogenase Total Creatine Kinase CK-MB (CK-2) CK-MB (CK-2) Rel Index Troponin T C-Reactive Protein NT-Pro-B Natriuret Pep Total Protein Albumin HDL Cholesterol Folate Ur Specific [place]lick Urine WBC (Auto) Crossmatch 01/06/19 01/06/19 01/06/19 11:51 17:04 17:57 WBC RBC Hgb Hct RDW Plt Count Lymph % (Auto) [place] % (Auto) Lymph # [place] # Seg Neutrophils % PT INR D-Dimer Heparin Anti-Xa Level POC ABG pH POC ABG pCO2 POC ABG pO2 Sodium Potassium Chloride Carbon Dioxide BUN Creatinine Glucose POC Glucose 148 H 135 H Lactic Acid Calcium Iron TIBC Total Bilirubin AST ALT Lactate Dehydrogenase Total Creatine Kinase CK-MB (CK-2) CK-MB (CK-2) Rel Index Troponin T C-Reactive Protein NT-Pro-B Natriuret Pep 4783 H Total Protein Albumin HDL Cholesterol Folate Ur Specific Slick Urine WBC (Auto) Crossmatch 01/06/19 01/07/19 01/07/19 20:59 08:35 10:34 WBC RBC Hgb Hct RDW Plt Count Lymph % (Auto) [place] % (Auto) Lymph # [place] # Seg Neutrophils % PT INR D-Dimer Heparin Anti-Xa Level POC ABG pH POC ABG pCO2 POC ABG pO2 Sodium Potassium Chloride Carbon Dioxide BUN Creatinine Glucose 129 H POC Glucose 115 H 143 H Lactic Acid Calcium Iron TIBC Total Bilirubin AST ALT Lactate Dehydrogenase Total Creatine Kinase CK-MB (CK-2) CK-MB (CK-2) Rel Index Troponin T C-Reactive Protein NT-Pro-B Natriuret Pep Total Protein Albumin HDL Cholesterol Folate Ur Specific Slick Urine WBC (Auto) Crossmatch 01/07/19 01/07/19 01/07/19 11:31 16:16 20:49 WBC RBC Hgb Hct RDW Plt Count Lymph % (Auto) [place] % (Auto) Lymph # [place] # Seg Neutrophils % PT INR D-Dimer Heparin Anti-Xa Level POC ABG pH POC ABG pCO2 POC ABG pO2 Sodium Potassium Chloride Carbon Dioxide BUN Creatinine Glucose POC Glucose 144 H 133 H 138 H Lactic Acid Calcium Iron TIBC Total Bilirubin AST ALT Lactate Dehydrogenase Total Creatine Kinase CK-MB (CK-2) CK-MB (CK-2) Rel Index Troponin T C-Reactive Protein NT-Pro-B Natriuret Pep Total Protein Albumin HDL Cholesterol Folate Ur Specific Slick Urine WBC (Auto) Crossmatch 01/08/19 01/08/19 01/08/19 00:19 05:11 05:11 WBC RBC Hgb Hct RDW 16.9 H Plt Count Lymph % (Auto) [place] % (Auto) Lymph # [place] # Seg Neutrophils % PT INR D-Dimer Heparin Anti-Xa Level POC ABG pH POC ABG pCO2 POC ABG pO2 Sodium Potassium Chloride Carbon Dioxide BUN Creatinine Glucose 144 H POC Glucose 129 H Lactic Acid Calcium Iron TIBC Total Bilirubin AST ALT Lactate Dehydrogenase Total Creatine Kinase CK-MB (CK-2) CK-MB (CK-2) Rel Index Troponin T C-Reactive Protein NT-Pro-B Natriuret Pep Total Protein Albumin HDL Cholesterol Folate Ur Specific [place] Urine WBC (Auto) Crossmatch 01/08/19 01/08/19 07:32 11:56 WBC RBC Hgb Hct RDW Plt Count Lymph % (Auto) [place] % (Auto) Lymph # [place] # Seg Neutrophils % PT INR D-Dimer Heparin Anti-Xa Level POC ABG pH POC ABG pCO2 POC ABG pO2 Sodium Potassium Chloride Carbon Dioxide BUN Creatinine Glucose POC Glucose 134 H 162 H Lactic Acid Calcium Iron TIBC Total Bilirubin AST ALT Lactate Dehydrogenase Total Creatine Kinase CK-MB (CK-2) CK-MB (CK-2) Rel Index Troponin T C-Reactive Protein NT-Pro-B Natriuret Pep Total Protein Albumin HDL Cholesterol Folate Ur Specific [place] Urine WBC (Auto) Crossmatch Allied health notes reviewed: nursing
--- NOTE | 2019-01-08 16:03 | Progress Note ---
<DARLEEN ALEXANDER - Last Filed: 01/08/19 16:14> Assessment and Plan Assessment and plan: 73-year-old male, with morbid obesity, HTN, CAD, s/p SC, Seizure, admitted after spouse found him on the floor with agonal breathing 10 mins after he went to bed. EMS was called and transported to the hospital in. He was diagnosed with acute respiratory failure, intubated in the ED. Patient was extubated on 01/01, put on BIPAP . Currently patient is on Ventimask because he mouth breathes, desaturates, and pull of NC, when sleeping. He was diagnosed with sepsis due to pneumonia, completed Antibiotics. He is also diagnosed with DVT both legs, seen by Dr. Rivera, was put on Arixtra. He had thrombocytopenia, now resolved. He is being switched to Eliquis on 01/07 but will hold for 2 days for thoracentesis due to right pleural effusion. He pulled out Peripheral iv line and Mid line overnight 01/03, and also pulled out right chest tube overnight 01/04. He has been confused, agitated on and off. Started on on Haldol prn , and Seroquel nightly. Acute Hypoxic Respiratory failure- s/p extubated 01/01 Seizure Disorder DVT bilateral lower extremity Sepsis Right sided Pneumonia Large Right sided Pleural effusion- s/p chest tube was placed, s/p removal by patient Shock syndrome questionable septic versus cardiogenic Hypokalemia Morbid Obesity Thrombocytopenia Non ST elevated SC type II Presumed ischemic cardiomyopathy status post CABG Toxic metabolic encephalopathy Severe Protein calorie malnutrition Hyponatremia Hypocalcemia History of CVA 2 years ago Plan: Previously intubated, extubated on 01/01 , placed on BIPAP nocturnally, placed on Venti mass 50% FiO2 when awake Off heparin drip, was on Arixtra. Plan start Eliquis on 01/07; will hold d/t pending rt thoracentesiss scheduled for tomorrow Resume Plavix Monday after thoracentesis ID following Continue AED DVT/GI prophy Therapeutic and diagnostic right thoracentesis-pending Continues to be confused Start Seroquel 50 mg nightly Continue Haldol when necessary History Interval history: She was seen today in the I[facility]U. Presently he is on Ventimask 50% FiO2. He continues to be confused at times and has periods of agitation. No acute events Hospitalist Physical - Constitutional Vitals: Temp Pulse Resp BP Pulse Ox 97.5 F L 85 23 115/67 98 01/08/19 12:00 01/08/19 13:36 01/08/19 13:36 01/08/19 12:30 01/08/19 13:39 General appearance: Present: no acute distress, obese - EENT Eyes: Present: PERRL, EOM intact ENT: hearing intact, clear oral mucosa - Neck Neck: Present: supple, normal ROM - Respiratory Respiratory effort: labored Respiratory: bilateral: diminished (poor air movement) - Cardiovascular Heart rate: 92 (beats per minute) Rhythm: regular Heart Sounds: Present: S1 & S2. Absent: rub, click Details: On Ventimask 50% - Extremities Extremities: pulses intact, pulses symmetrical, No edema Peripheral Pulses: within normal limits - Abdominal General gastrointestinal: soft, non-tender, normal bowel sounds, other (obese) - Integumentary Integumentary: Present: warm, dry - Psychiatric Psychiatric: cooperative - Neurologic Neurologic: CNII-XII intact, moves all extremities, other (periods of confusion and agitation) - Allied Health Allied health notes reviewed: nursing, case management Results - Labs CBC & Chem 7: 01/08/19 05:11 01/08/19 05:11 Labs: Laboratory Last Values WBC 6.2 K/mm3 (4.5-11.0) 01/08/19 05:11 RBC 4.46 M/mm3 (3.65-5.03) 01/08/19 05:11 Hgb 13.2 gm/dl (11.8-15.2) 01/08/19 05:11 Hct 39.9 % (35.5-45.6) 01/08/19 05:11 MCV 89 fl (84-94) 01/08/19 05:11 MCH 30 pg (28-32) 01/08/19 05:11 MCHC 33 % (32-34) 01/08/19 05:11 RDW 16.9 % (13.2-15.2) H 01/08/19 05:11 Plt Count 172 K/mm3 (140-440) 01/08/19 05:11 Lymph % (Auto) 7.5 % (13.4-35.0) L 01/02/19 05:09 [place] % (Auto) 14.2 % (0.0-7.3) H 01/02/19 05:09 Eos % (Auto) 1.3 % (0.0-4.3) 01/02/19 05:09 Baso % (Auto) 0.5 % (0.0-1.8) 01/02/19 05:09 Lymph # 0.3 K/mm3 (1.2-5.4) L 01/02/19 05:09 [place] # 0.6 K/mm3 (0.0-0.8) 01/02/19 05:09 Eos # 0.1 K/mm3 (0.0-0.4) 01/02/19 05:09 Baso # 0.0 K/mm3 (0.0-0.1) 01/02/19 05:09 Seg Neutrophils % 76.5 % (40.0-70.0) H 01/02/19 05:09 Seg Neutrophils # 3.0 K/mm3 (1.8-7.7) 01/02/19 05:09 PT 16.5 Sec. (12.2-14.9) H 12/30/18 18:17 INR 1.25 (0.87-1.13) H 12/30/18 18:17 APTT 33.1 Sec. (24.2-36.6) 12/30/18 18:17 D-Dimer 815.50 ng/mlDDU (0-234) H 12/28/18 23:58 Heparin Anti-Xa Level 0.70 U.I./ml (0.3-0.7) 01/02/19 05:09 Heparin Anti-Xa, Unfract Negative (Negative) 01/02/19 05:26 POC ABG pH 7.318 (7.35-7.45) L 01/02/19 11:21 POC ABG pCO2 56.7 (35-45) H 01/02/19 11:21 POC ABG pO2 215 (80-105) H 01/02/19 11:21 POC ABG HCO3 29.1 (22-26 mml/L) 01/02/19 11:21 POC ABG Total CO2 31 (23-27mmol/L) 01/02/19 11:21 POC ABG O2 Sat 100 01/02/19 11:21 POC ABG Base Excess 3 ((-2) - (+3)mmol/L) 01/02/19 11:21 FiO2 60 % 01/02/19 11:21 Sodium 144 mmol/L (137-145) 01/08/19 05:11 Potassium 4.3 mmol/L (3.6-5.0) 01/08/19 05:11 Chloride 103.5 mmol/L (98-107) 01/08/19 05:11 Carbon Dioxide 30 mmol/L (22-30) 01/08/19 05:11 Anion Gap 15 mmol/L 01/08/19 05:11 BUN 14 mg/dL (9-20) 01/08/19 05:11 Creatinine 1.0 mg/dL (0.8-1.5) 01/08/19 05:11 Estimated GFR > 60 ml/min 01/08/19 05:11 BUN/Creatinine Ratio 14 % 01/08/19 05:11 Glucose 144 mg/dL (75-100) H 01/08/19 05:11 POC Glucose 162 (70-105) H 01/08/19 11:56 Lactic Acid 1.50 mmol/L (0.7-2.0) 12/30/18 11:42 Calcium 8.5 mg/dL (8.4-10.2) 01/08/19 05:11 Magnesium 1.90 mg/dL (1.7-2.3) 01/06/19 00:14 Iron 34 ug/dL (49-181) L 01/02/19 05:09 TIBC 231 mcg/dL (250-450) L 01/02/19 05:09 Ferritin 163.3 ng/mL (13.0-400.0) 01/02/19 05:09 Total Bilirubin 0.60 mg/dL (0.1-1.2) 01/01/19 04:42 AST 23 units/L (5-40) 01/01/19 04:42 ALT 10 units/L (7-56) 01/01/19 04:42 Alkaline Phosphatase 53 units/L (35-129) 01/01/19 04:42 Lactate Dehydrogenase 405 units/L (91-180) H 12/29/18 15:02 Total Creatine Kinase 837 units/L (55-170) H 12/29/18 12:51 CK-MB (CK-2) 10.5 ng/mL (0.0-4.0) H 12/29/18 12:51 CK-MB (CK-2) Rel Index 1.2 (0-4) 12/29/18 12:51 Troponin T 0.060 ng/mL (0.00-0.029) H D 12/30/18 13:53 C-Reactive Protein 2.80 mg/dL (0.00-1.30) H 12/29/18 16:46 NT-Pro-B Natriuret Pep 4783 pg/mL (0-900) H 01/06/19 17:04 Total Protein 4.9 g/dL (6.3-8.2) L 01/01/19 04:42 Albumin 2.3 g/dL (3.9-5) L 01/01/19 04:42 Albumin/Globulin Ratio 0.9 % 01/01/19 04:42 Triglycerides 113 mg/dL (2-149) 12/29/18 08:34 Cholesterol 120 mg/dL (50-199) 12/29/18 08:34 LDL Cholesterol Direct 82 mg/dL (50-130) 12/29/18 08:34 HDL Cholesterol 34 mg/dL (40-59) L 12/29/18 08:34 Cholesterol/HDL Ratio 3.52 % 12/29/18 08:34 Vitamin B12 365.3 pg/mL (211-911) 01/02/19 05:09 Folate 6.01 ng/mL (7.3-26.0) L 01/02/19 05:09 Urine Color Yolande (Yellow) 12/29/18 03:00 Urine Turbidity Cloudy (Clear) 12/29/18 03:00 Urine pH 5.0 (5.0-7.0) 12/29/18 03:00 Ur Specific [place] 1.033 (1.003-1.030) H 12/29/18 03:00 Urine Protein >500 mg/dL (Negative) 12/29/18 03:00 Urine Glucose (UA) 150 mg/dL (Negative) 12/29/18 03:00 Urine Ketones Neg mg/dL (Negative) 12/29/18 03:00 Urine Blood Mod (Negative) 12/29/18 03:00 Urine Nitrite Neg (Negative) 12/29/18 03:00 Urine Bilirubin Neg (Negative) 12/29/18 03:00 Urine Urobilinogen < 2.0 mg/dL (<2.0) 12/29/18 03:00 Ur Leukocyte Esterase Neg (Negative) 12/29/18 03:00 Urine WBC (Auto) 31.0 /HPF (0.0-6.0) H 12/29/18 03:00 Urine RBC (Auto) 27.0 /HPF (0.0-6.0) 12/29/18 03:00 U Epithel Cells (Auto) 4.0 /HPF (0-13.0) 12/29/18 03:00 Urine Bacteria (Auto) 4+ /HPF (Negative) 12/29/18 03:00 Urine Mucus 3+ /HPF 12/29/18 03:00 Urine Opiates Screen Presumptive negative 12/29/18 03:00 Urine Methadone Screen Presumptive negative 12/29/18 03:00 Ur Barbiturates Screen Presumptive negative 12/29/18 03:00 Ur Phencyclidine Scrn Presumptive negative 12/29/18 03:00 Ur Amphetamines Screen Presumptive negative 12/29/18 03:00 U Benzodiazepines Scrn Presumptive negative 12/29/18 03:00 Urine Cocaine Screen Presumptive negative 12/29/18 03:00 U Marijuana (THC) Screen Presumptive negative 12/29/18 03:00 Drugs of Abuse Note Disclamer 12/29/18 03:00 Heparin-induced Plt Ab Negative (Negative) 01/02/19 05:26 UF Heparin High Dose 0 % Release 01/02/19 05:26 THOMAS UFH Low Dose 0.1 0 % Release 01/02/19 05:26 THOMAS UFH Low Dose 0.5 0 % Release 01/02/19 05:26 Urine Legionella Ag Not detected (Not Detected) 12/31/18 05:30 Blood Type O POSITIVE 12/29/18 01:53 Antibody Screen Negative 12/29/18 01:53 Crossmatch See Detail 12/29/18 01:53 Active Medications - Current Medications Current Medications: Generic Name Dose Route Start Last Admin Trade Name Freq PRN Reason Stop Dose Admin Acetaminophen 650 mg 12/29/18 04:49 12/30/18 08:33 Tylenol GA 650 mg Q4H PRN Administration Fever >101 Albuterol/Ipratropium 1 ampul 01/01/19 14:00 01/08/19 13:36 Duoneb *Not For Prn Use* IH 1 ampul Q6HRT WENDY Administration Atorvastatin Calcium 40 mg 01/04/19 22:00 01/07/19 21:38 Lipitor PO 40 mg QHS WENDY Administration Dextrose 50 ml 12/29/18 04:47 D50w (25gm) Syringe IV PRN PRN Hypoglycemia Famotidine 20 mg 01/04/19 10:00 01/08/19 09:28 Pepcid PO 20 mg BID WENDY Administration Folic Acid 1 mg 01/06/19 12:00 01/08/19 09:28 Folvite PO 1 mg QDAY WENDY Administration Furosemide 20 mg 01/06/19 18:00 01/08/19 06:04 Lasix IV 20 mg 0600,1800 WENDY Administration Haloperidol Lactate 5 mg 01/07/19 11:33 01/08/19 01:50 Haldol IM 5 mg Q6H PRN Administration Agitation Hydralazine HCl 10 mg 01/01/19 13:23 Apresoline IV Q4HR PRN SBP >/=170 Insulin Human Regular 0 units 01/04/19 11:30 01/08/19 12:45 Humulin R SUB-Q 1 units ACHS WENDY Administration Protocol Levetiracetam 500 mg 01/04/19 10:00 01/08/19 09:28 Keppra PO 500 mg BID WENDY Administration Losartan Potassium 50 mg 01/04/19 11:00 01/08/19 09:27 Cozaar PO 50 mg DAILY WENDY Administration Metoprolol Tartrate 12.5 mg 01/03/19 11:00 01/08/19 09:28 Lopressor PO 12.5 mg BID WENDY Administration Metronidazole 500 mg 01/07/19 18:00 01/08/19 13:28 Flagyl PO 01/08/19 23:59 500 mg Q8HR WENDY Administration Protocol Ondansetron HCl 4 mg 12/29/18 04:49 Zofran IV Q8H PRN Nausea And Vomiting Zolpidem Tartrate 5 mg 01/07/19 11:08 01/07/19 21:48 Ambien PO 5 mg QHS PRN Administration Sleep Nutrition/Malnutrition Assess - Dietary Evaluation Nutrition/Malnutrition Findings: Nutrition Notes Start: 12/31/18 14:59 Freq: Status: Active Protocol: Document 01/07/19 12:07 LIZ (Rec: 01/07/19 12:13 LIZ [id number] [email or web address]) Nutrition Notes Initial or Follow up Reassessment Current Diagnosis Coronary Artery Disease, Diabetes,Hypertension, Respiratory Failure Other Pertinent Diagnosis (R) lung effusion, (R) pneu Current Diet Cardiac/consistent carbohydrate + Glucerna daily Labs/Tests Reviewed Pertinent Medications Reviewed Height 5 ft 7 in Weight 131.19 kg [place] Body Weight (kg) 67.27 BMI 45.3 Weight change and time frame Current wt obtained from bed scale Subjective/Other Information Pt reports poor appetite, but does drink the Glucerna. Pt family member states that he ate "a little bit" yesterday. Burn Absent Trauma Absent #1 Nutrition Diagnosis Inadequate oral intake Diagnosis Progress(for reassessment Continues documentation) Is patient on ventilator? No Is Patient Ambulatory and/or Out of Bed No REE-([place]-confined to bed) 2412.252 Kcal/Kg value to use for calculation 14 Approximate Energy Requirements Using 1837 kcal/Kg Additional Notes Pro needs 1-1.2g/kg adjBW: 99- 119g/day Fluid needs 1ml/kcal Nutrition Intervention Change Diet Order: Continue current diet order Add Supplement/Snack (indicate name/kcal Glucerna [place] BID /protein ) Provides kCal: 440 Provides Protein (gm) 20 Goal #1 PO intake of meals plus ONS to meet at least 75% of energy and pro needs Follow-Up By: 01/11/19 Additional Comments F/U: intakes <FOX HERNANDEZ M - Last Filed: 01/11/19 14:00> Assessment and Plan Assessment and plan: I saw and evaluated the patient. I agree with the findings and the plan of care as documented in the Nurse Practitioner's~note, with the following corrections and additions. -Mental health consult, trial of Seroquel -Patient is a mouth breather, therefore we use Ventimask when asleep Continue trial of CPAP for ELIGIO, patient will need outpatient sleep study -Try to minimize delirium, re-orient patient frequently History Interval history: Correction patient is he/male -The patient states that shortness of breath is improved, his narcissistic he was agitated and pulling things, he feels better now Denies chest pain, denies vomiting, denies seizure Hospitalist Physical - Constitutional Vitals: Temp Pulse Resp BP Pulse Ox 98 F 84 20 123/62 98 01/11/19 08:00 01/11/19 12:10 01/11/19 12:10 01/11/19 12:10 01/11/19 12:10 Results - Labs CBC & Chem 7: 01/11/19 04:09 01/11/19 04:09 Labs: Laboratory Last Values WBC 4.4 K/mm3 (4.5-11.0) L 01/11/19 04:09 RBC 4.32 M/mm3 (3.65-5.03) 01/11/19 04:09 Hgb 12.6 gm/dl (11.8-15.2) 01/11/19 04:09 Hct 38.6 % (35.5-45.6) 01/11/19 04:09 MCV 89 fl (84-94) 01/11/19 04:09 MCH 29 pg (28-32) 01/11/19 04:09 MCHC 33 % (32-34) 01/11/19 04:09 RDW 16.5 % (13.2-15.2) H 01/11/19 04:09 Plt Count 131 K/mm3 (140-440) L 01/11/19 04:09 Lymph % (Auto) 15.0 % (13.4-35.0) 01/11/19 04:09 [place] % (Auto) 11.8 % (0.0-7.3) H 01/11/19 04:09 Eos % (Auto) 2.9 % (0.0-4.3) 01/11/19 04:09 Baso % (Auto) 0.4 % (0.0-1.8) 01/11/19 04:09 Lymph # 0.7 K/mm3 (1.2-5.4) L 01/11/19 04:09 [place] # 0.5 K/mm3 (0.0-0.8) 01/11/19 04:09 Eos # 0.1 K/mm3 (0.0-0.4) 01/11/19 04:09 Baso # 0.0 K/mm3 (0.0-0.1) 01/11/19 04:09 Seg Neutrophils % 69.9 % (40.0-70.0) 01/11/19 04:09 Seg Neutrophils # 3.0 K/mm3 (1.8-7.7) 01/11/19 04:09 PT 16.5 Sec. (12.2-14.9) H 12/30/18 18:17 INR 1.25 (0.87-1.13) H 12/30/18 18:17 APTT 33.1 Sec. (24.2-36.6) 12/30/18 18:17 D-Dimer 815.50 ng/mlDDU (0-234) H 12/28/18 23:58 Heparin Anti-Xa Level 0.70 U.I./ml (0.3-0.7) 01/02/19 05:09 Heparin Anti-Xa, Unfract Negative (Negative) 01/02/19 05:26 POC ABG pH 7.318 (7.35-7.45) L 01/02/19 11:21 POC ABG pCO2 56.7 (35-45) H 01/02/19 11:21 POC ABG pO2 215 (80-105) H 01/02/19 11:21 POC ABG HCO3 29.1 (22-26 mml/L) 01/02/19 11:21 POC ABG Total CO2 31 (23-27mmol/L) 01/02/19 11:21 POC ABG O2 Sat 100 01/02/19 11:21 POC ABG Base Excess 3 ((-2) - (+3)mmol/L) 01/02/19 11:21 FiO2 60 % 01/02/19 11:21 Sodium 146 mmol/L (137-145) H 01/11/19 04:09 Potassium 3.4 mmol/L (3.6-5.0) L D 01/11/19 04:09 Chloride 96.9 mmol/L (98-107) L 01/11/19 04:09 Carbon Dioxide 40 mmol/L (22-30) H D 01/11/19 04:09 Anion Gap 13 mmol/L 01/11/19 04:09 BUN 11 mg/dL (9-20) 01/11/19 04:09 Creatinine 0.7 mg/dL (0.8-1.5) L 01/11/19 04:09 Estimated GFR > 60 ml/min 01/11/19 04:09 BUN/Creatinine Ratio 16 % 01/11/19 04:09 Glucose 110 mg/dL (75-100) H 01/11/19 04:09 POC Glucose 138 (70-105) H 01/11/19 11:54 Lactic Acid 1.50 mmol/L (0.7-2.0) 12/30/18 11:42 Calcium 8.9 mg/dL (8.4-10.2) 01/11/19 04:09 Phosphorus 2.30 mg/dL (2.5-4.5) L 01/11/19 04:09 Magnesium 2.00 mg/dL (1.7-2.3) 01/11/19 04:09 Iron 34 ug/dL (49-181) L 01/02/19 05:09 TIBC 231 mcg/dL (250-450) L 01/02/19 05:09 Ferritin 163.3 ng/mL (13.0-400.0) 01/02/19 05:09 Total Bilirubin 0.70 mg/dL (0.1-1.2) 01/11/19 04:09 AST 17 units/L (5-40) 01/11/19 04:09 ALT 11 units/L (7-56) 01/11/19 04:09 Alkaline Phosphatase 51 units/L (35-129) 01/11/19 04:09 Lactate Dehydrogenase 405 units/L (91-180) H 12/29/18 15:02 Total Creatine Kinase 837 units/L (55-170) H 12/29/18 12:51 CK-MB (CK-2) 10.5 ng/mL (0.0-4.0) H 12/29/18 12:51 CK-MB (CK-2) Rel Index 1.2 (0-4) 12/29/18 12:51 Troponin T 0.060 ng/mL (0.00-0.029) H D 12/30/18 13:53 C-Reactive Protein 2.80 mg/dL (0.00-1.30) H 12/29/18 16:46 NT-Pro-B Natriuret Pep 4783 pg/mL (0-900) H 01/06/19 17:04 Total Protein 5.4 g/dL (6.3-8.2) L 01/11/19 04:09 Albumin 2.6 g/dL (3.9-5) L 01/11/19 04:09 Albumin/Globulin Ratio 0.9 % 01/11/19 04:09 Triglycerides 113 mg/dL (2-149) 12/29/18 08:34 Cholesterol 120 mg/dL (50-199) 12/29/18 08:34 LDL Cholesterol Direct 82 mg/dL (50-130) 12/29/18 08:34 HDL Cholesterol 34 mg/dL (40-59) L 12/29/18 08:34 Cholesterol/HDL Ratio 3.52 % 12/29/18 08:34 Serotonin Release Assay See scanned result 01/02/19 05:26 Vitamin B12 365.3 pg/mL (211-911) 01/02/19 05:09 Folate 6.01 ng/mL (7.3-26.0) L 01/02/19 05:09 Urine Color Yolande (Yellow) 12/29/18 03:00 Urine Turbidity Cloudy (Clear) 12/29/18 03:00 Urine pH 5.0 (5.0-7.0) 12/29/18 03:00 Ur Specific [place] 1.033 (1.003-1.030) H 12/29/18 03:00 Urine Protein >500 mg/dL (Negative) 12/29/18 03:00 Urine Glucose (UA) 150 mg/dL (Negative) 12/29/18 03:00 Urine Ketones Neg mg/dL (Negative) 12/29/18 03:00 Urine Blood Mod (Negative) 12/29/18 03:00 Urine Nitrite Neg (Negative) 12/29/18 03:00 Urine Bilirubin Neg (Negative) 12/29/18 03:00 Urine Urobilinogen < 2.0 mg/dL (<2.0) 12/29/18 03:00 Ur Leukocyte Esterase Neg (Negative) 12/29/18 03:00 Urine WBC (Auto) 31.0 /HPF (0.0-6.0) H 12/29/18 03:00 Urine RBC (Auto) 27.0 /HPF (0.0-6.0) 12/29/18 03:00 U Epithel Cells (Auto) 4.0 /HPF (0-13.0) 12/29/18 03:00 Urine Bacteria (Auto) 4+ /HPF (Negative) 12/29/18 03:00 Urine Mucus 3+ /HPF 12/29/18 03:00 Urine Opiates Screen Presumptive negative 12/29/18 03:00 Urine Methadone Screen Presumptive negative 12/29/18 03:00 Ur Barbiturates Screen Presumptive negative 12/29/18 03:00 Ur Phencyclidine Scrn Presumptive negative 12/29/18 03:00 Ur Amphetamines Screen Presumptive negative 12/29/18 03:00 U Benzodiazepines Scrn Presumptive negative 12/29/18 03:00 Urine Cocaine Screen Presumptive negative 12/29/18 03:00 U Marijuana (THC) Screen Presumptive negative 12/29/18 03:00 Drugs of Abuse Note Disclamer 12/29/18 03:00 Heparin-induced Plt Ab Negative (Negative) 01/02/19 05:26 UF Heparin High Dose 0 % Release 01/02/19 05:26 THOMAS UFH Low Dose 0.1 0 % Release 01/02/19 05:26 THOMAS UFH Low Dose 0.5 0 % Release 01/02/19 05:26 Urine Legionella Ag Not detected (Not Detected) 12/31/18 05:30 Blood Type O POSITIVE 12/29/18 01:53 Antibody Screen Negative 12/29/18 01:53 Crossmatch See Detail 12/29/18 01:53 Active Medications - Current Medications Current Medications: Generic Name Dose Route Start Last Admin Trade Name Freq PRN Reason Stop Dose Admin Acetaminophen 650 mg 12/29/18 04:49 12/30/18 08:33 Tylenol GA 650 mg Q4H PRN Administration Fever >101 Albuterol/Ipratropium 1 ampul 01/01/19 14:00 01/11/19 13:34 Duoneb *Not For Prn Use* IH 1 ampul Q6HRT WENDY Administration Atorvastatin Calcium 40 mg 01/04/19 22:00 01/11/19 00:12 Lipitor PO 40 mg QHS WENDY Administration Dextrose 50 ml 12/29/18 04:47 D50w (25gm) Syringe IV PRN PRN Hypoglycemia Famotidine 20 mg 01/04/19 10:00 01/11/19 10:30 Pepcid PO 20 mg BID WENDY Administration Folic Acid 1 mg 01/06/19 12:00 01/11/19 10:30 Folvite PO 1 mg QDAY WENDY Administration Furosemide 40 mg 01/11/19 10:00 01/11/19 13:05 Lasix IV 40 mg 1000 WENDY Administration Gabapentin 300 mg 01/10/19 22:00 01/11/19 00:12 Neurontin PO 300 mg HS WENDY Administration Haloperidol Lactate 5 mg 01/07/19 11:33 01/10/19 01:14 Haldol IM 5 mg Q6H PRN Administration Agitation Hydralazine HCl 10 mg 01/01/19 13:23 Apresoline IV Q4HR PRN SBP >/=170 Insulin Human Regular 0 units 01/04/19 11:30 01/11/19 12:06 Humulin R SUB-Q Not Given ACHS [facility] Protocol Levetiracetam 500 mg 01/04/19 10:00 01/11/19 10:30 Keppra PO 500 mg BID WENDY Administration Losartan Potassium 50 mg 01/04/19 11:00 01/11/19 11:00 Cozaar PO 50 mg DAILY WENDY Administration Metformin HCl 500 mg 01/10/19 17:00 01/11/19 10:30 Glucophage Xr PO 500 mg BIDDIAB WENDY Administration Metoprolol Tartrate 12.5 mg 01/03/19 11:00 01/11/19 10:30 Lopressor PO 12.5 mg BID WENDY Administration Ondansetron HCl 4 mg 12/29/18 04:49 Zofran IV Q8H PRN Nausea And Vomiting Quetiapine Fumarate 50 mg 01/08/19 22:00 01/11/19 00:13 Seroquel PO 50 mg QHS WENDY Administration Ropinirole HCl 1 mg 01/11/19 10:00 01/11/19 13:05 Requip PO 1 mg DAILY WENDY Administration Sertraline HCl 100 mg 01/11/19 10:00 01/11/19 10:30 Zoloft PO 100 mg QDAY WENDY Administration Zolpidem Tartrate 5 mg 01/07/19 11:08 01/07/19 21:48 Ambien PO 5 mg QHS PRN Administration Sleep Nutrition/Malnutrition Assess - Dietary Evaluation Nutrition/Malnutrition Findings: Nutrition Notes Start: 12/31/18 14:59 Freq: Status: Active Protocol: Document 01/07/19 12:07 LIZ (Rec: 01/07/19 12:13 LIZ SORIA-SANDI 1) Nutrition Notes Initial or Follow up Reassessment Current Diagnosis Coronary Artery Disease, Diabetes,Hypertension, Respiratory Failure Other Pertinent Diagnosis (R) lung effusion, (R) pneu Current Diet Cardiac/consistent carbohydrate + Glucerna daily Labs/Tests Reviewed Pertinent Medications Reviewed Height 5 ft 7 in Weight 131.19 kg [place] Body Weight (kg) 67.27 BMI 45.3 Weight change and time frame Current wt obtained from bed scale Subjective/Other Information Pt reports poor appetite, but does drink the Glucerna. Pt family member states that he ate "a little bit" yesterday. Burn Absent Trauma Absent #1 Nutrition Diagnosis Inadequate oral intake Diagnosis Progress(for reassessment Continues documentation) Is patient on ventilator? No Is Patient Ambulatory and/or Out of Bed No REE-([facility]-confined to bed) 2412.252 Kcal/Kg value to use for calculation 14 Approximate Energy Requirements Using 1837 kcal/Kg Additional Notes Pro needs 1-1.2g/kg adjBW: 99- 119g/day Fluid needs 1ml/kcal Nutrition Intervention Change Diet Order: Continue current diet order Add Supplement/Snack (indicate name/kcal Glucerna [place] BID /protein ) Provides kCal: 440 Provides Protein (gm) 20 Goal #1 PO intake of meals plus ONS to meet at least 75% of energy and pro needs Follow-Up By: 01/11/19 Additional Comments F/U: intakes
--- NOTE | 2019-01-08 16:39 | Progress Note ---
Assessment and Plan Cultures: 12/28/2018 sputum culture: Normal respiratory ramses 12/29/2018 right pleural fluid culture: No growth in 24 hours / no organisms, no PMN, few mononuclear cells 12/29/2018 blood culture: no growth 12/29/2018 urine culture: No growth in 24 hours A/P: 73-year-old male with history of morbid obesity, ELIGIO on CPAP, CAD s/p CABG, diabetes, restless leg syndrome was brought to the emergency room on 12/28/2018 with a respiratory arrest: 1) Shock, etiology unclear: septic v/s cardiogenic. Resolved. No fever prior to admission, no leucocytosis. Fever resolved. Unclear etiology?. Large R pleural effusion, ?underlying pneumonia. No urinary symptoms, urine culture with no growth (UA with some pyuria). 2) Acute respiratory failure: better; off the vent on BIPAP 3) Large R pleural effusion: s/p thoracentesis and chest tube on 12/29/2018. Patient removed CT. Cannot rule out underlying pneumonia v/s aspiration from seizure. Pleural fluid studies pending/no sent. Pleural Gram stain not c/w empyema. Pleural culture so far negative. 12/28/2018 sputum culture showed Normal respiratory ramses. legionella not detected 4) ?Seizures: per family with previous history of seizures. Neurology on board. 5) PCN allergy: remote allergy as a child. agreeable to try Cephalosporins. 6) Thrombocytopenia: better? meds Recs: continue IV Cefepime 2 gm q8 hrs + IV Flagyl 500 mg q8 hrs D 10 to have another chest tube placement, please send pleural fluid for Gram, culture, LDH, glucose, protein. Will follow Alyssa Cruz MD Infectious Diseases [employer] [facility] ([facility]) M [phone] O [phone] Subjective Date of service: 01/08/19 Principal diagnosis: dvt - low plt Interval history: Somnolent confused today unintelligible speech mask O2, no fever ROS: denies SOB, N//V/D Objective - Exam Narrative Exam: General appearance: somnolent unintelligible speech Eyes: anicteric sclerae, moist conjunctivae; no lid-lag; PERRLA HENT: Atraumatic; oropharynx with O2 mask Neck: Trachea midline; supple, no thyromegaly or lymphadenopathy Lungs: coarse himanshu CV: RRR Abdomen: Soft, obese non-tender Extremities: himanshu arm/legs edema Skin: himanshu arms ecchymoses Psych: no agitated Neuro: somnolent unintelligible speech - Constitutional Vitals: Vital Signs Temp Pulse Resp BP Pulse Ox 97.5 F L 85 23 115/67 98 01/08/19 12:00 01/08/19 13:36 01/08/19 13:36 01/08/19 12:30 01/08/19 13:39 Temperature -Last 24 Hours Temperature 97.5 F Temperature 97.8 F Temperature 99.4 F Temperature 98.6 F Temperature 99.2 F Temperature 97.6 F - Labs CBC & Chem 7: 01/08/19 05:11 01/08/19 05:11 Labs: Abnormal lab results 01/07/19 01/07/19 01/08/19 Range/Units 16:16 20:49 00:19 RDW (13.2-15.2) % Glucose (75-100) mg/dL POC Glucose 133 H 138 H 129 H (70-105) 01/08/19 01/08/19 01/08/19 Range/Units 05:11 05:11 07:32 RDW 16.9 H (13.2-15.2) % Glucose 144 H (75-100) mg/dL POC Glucose 134 H (70-105) 01/08/19 01/08/19 Range/Units 11:56 16:40 RDW (13.2-15.2) % Glucose (75-100) mg/dL POC Glucose 162 H 166 H (70-105)
[2019-01-09] MEDS: DUONEB *Not for PRN Use IH SCH ×4 (02:05→20:00)
[2019-01-09] MEDS: LASIX IV SCH ×2 (05:38→17:54)
[2019-01-09] MEDS: HumuLIN R SUB-Q SCH ×5 (09:23→23:10)
--- NOTE | 2019-01-09 09:24 | Hem/Onc Progress Note ---
Assessment and Plan 1. Deep venous thrombosis, left common femoral and right peroneal; bilateral leg swelling present. The patient was placed on heparin drip. Her platelets have slightly fallen down. 2. The patient's platelet count at admission was 99 and then 196, 125, and 114. I do not have any information about the patient's baseline platelet count. it is possible that the patient's baseline platelets are also low. 3. History of diabetes. 4. History of coronary artery disease. 5. Radiology showed right pleural effusion at one time. 6. History of seizure disorder as per the notes. 7. Myocardial infarction. 8. Status post coronary artery bypass graft. 9. Electrolyte imbalance. 10. History of cerebrovascular accident. 11. History of pneumonia. 12. h/o rt chest tube - h/o pl effusion 01/09 plt >100 US abdo limited - does not mention liver and spleen size. 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 uses CPAP at home low folate - on replacement the plan is to start eliquis -after thoracentesis planned - Patient Problems (1) DVT (deep venous thrombosis) Current Visit: Yes Status: Acute (2) Thrombocytopenia Current Visit: Yes Status: Acute Subjective Date of service: 01/09/19 Principal diagnosis: dvt - low plt Interval history: due thoracentesis Objective - Constitutional Vitals: Last Vital Signs Temp 98.4 F 01/09/19 04:00 Pulse 96 H 01/09/19 09:21 Resp 33 H 01/09/19 09:21 BP 119/53 01/09/19 06:00 Pulse Ox 96 01/09/19 09:17 Pain Intensity (0-10): denies any pain General appearance: no acute distress Performance status: 3-limited selfcare - EENT Eyes: EOM intact ENT: hearing intact, clear oral mucosa Lymph node exam: negative cervical - Neck Neck: normal ROM - Respiratory Respiratory effort: Positive: normal Respiratory: bilateral: CTA - Cardiovascular Heart Sounds: Present: S1 & S2 Extremities: No edema, normal temperature - Gastrointestinal General gastrointestinal: Present: soft, non-tender Rectal Exam: deferred - Genitourinary Male genitourinary: Present: deferred - Integumentary Integumentary: warm - Musculoskeletal Musculoskeletal: strength equal bilaterally - Neurologic Neurologic: moves all extremities - Labs Lab Results: Laboratory Results - last 24 hr 01/02/19 01/08/19 01/08/19 05:26 11:56 16:40 POC Glucose 162 H 166 H Serotonin Release Assay See scanned result 01/08/19 01/09/19 21:36 08:42 POC Glucose 166 H 114 H Serotonin Release Assay Medications & Allergies - Medications Allergies/Adverse Reactions: Allergies Penicillins Allergy (Verified 12/29/18 04:18) Unknown Home Medications: Home Medications Medication Instructions Recorded Confirmed Last Taken Type Aspirin 81 mg PO DAILY 12/30/18 12/30/18 12/30/18 History AtorvaSTATin 40 mg PO HS 12/30/18 12/30/18 12/28/18 History Clopidogrel Bisulfate [Clopidogrel] 75 mg PO DAILY 12/30/18 12/30/18 12/28/18 History Furosemide 40 mg PO DAILY 12/30/18 12/30/18 12/28/18 History Gabapentin [Neurontin] 300 mg PO HS 12/30/18 12/30/18 12/28/18 History Losartan [Cozaar] 50 mg .ROUTE DAILY 12/30/18 12/30/18 12/28/18 History Metformin ER (Nf) 500 gm .ROUTE BID 12/30/18 12/30/18 12/28/18 History Metoprolol 50 mg PO DAILY 12/30/18 12/30/18 12/28/18 History Potassium 10 meq PO DAILY 12/30/18 12/30/18 12/28/18 History Ropinirole HCl 1 mg PO DAILY 12/30/18 12/30/18 12/28/18 History Sertraline 25 mg PO DAILY 12/30/18 12/30/18 12/28/18 History Sertraline 75 mg PO DAILY 12/30/18 12/30/18 12/28/18 History Active Medications: Generic Name Dose Route Start Last Admin Trade Name Freq PRN Reason Stop Dose Admin Acetaminophen 650 mg 12/29/18 04:49 12/30/18 08:33 Tylenol CO 650 mg Q4H PRN Administration Fever >101 Albuterol/Ipratropium 1 ampul 01/01/19 14:00 01/09/19 09:20 Duoneb *Not For Prn Use* IH 1 ampul Q6HRT WENDY Administration Atorvastatin Calcium 40 mg 01/04/19 22:00 01/08/19 21:36 Lipitor PO 40 mg QHS WENDY Administration Dextrose 50 ml 12/29/18 04:47 D50w (25gm) Syringe IV PRN PRN Hypoglycemia Famotidine 20 mg 01/04/19 10:00 01/08/19 21:36 Pepcid PO 20 mg BID WENDY Administration Folic Acid 1 mg 01/06/19 12:00 01/08/19 09:28 Folvite PO 1 mg QDAY WENDY Administration Furosemide 20 mg 01/06/19 18:00 01/09/19 05:38 Lasix IV 20 mg 0600,1800 WENDY Administration Haloperidol Lactate 5 mg 01/07/19 11:33 01/08/19 01:50 Haldol IM 5 mg Q6H PRN Administration Agitation Hydralazine HCl 10 mg 01/01/19 13:23 Apresoline IV Q4HR PRN SBP >/=170 Insulin Human Regular 0 units 01/04/19 11:30 01/09/19 09:23 Humulin R SUB-Q Not Given ACHS [facility] Protocol Levetiracetam 500 mg 01/04/19 10:00 01/08/19 21:34 Keppra PO 500 mg BID WENDY Administration Losartan Potassium 50 mg 01/04/19 11:00 01/08/19 09:27 Cozaar PO 50 mg DAILY [facility] Administration Metoprolol Tartrate 12.5 mg 01/03/19 11:00 01/08/19 21:36 Lopressor PO 12.5 mg BID WENDY Administration Ondansetron HCl 4 mg 12/29/18 04:49 Zofran IV Q8H PRN Nausea And Vomiting Quetiapine Fumarate 50 mg 01/08/19 22:00 01/08/19 21:35 Seroquel PO 50 mg QHS WENDY Administration Zolpidem Tartrate 5 mg 01/07/19 11:08 01/07/19 21:48 Ambien PO 5 mg QHS PRN Administration Sleep
[2019-01-09] MEDS: PEPCID PO SCH ×2 (10:00→23:04)
[2019-01-09] MEDS: LOPRESSOR PO SCH ×2 (10:00→23:10)
[2019-01-09] MEDS: KEPPRA PO SCH ×2 (10:00→23:04)
[2019-01-09] MEDS: FOLVITE PO SCH (10:30)
[2019-01-09] MEDS: COZAAR PO SCH (10:30)
--- NOTE | 2019-01-09 10:39 | Progress Note ---
<DARLEEN ALEXANDER - Last Filed: 01/09/19 14:10> Assessment and Plan Assessment and plan: 73-year-old male, with morbid obesity, HTN, CAD, s/p HI, Seizure, admitted after spouse found him on the floor with agonal breathing 10 mins after he went to bed. EMS was called and transported to the hospital in. He was diagnosed with acute respiratory failure, intubated in the ED. Patient was extubated on 01/01, put on BIPAP . Currently patient is on Ventimask because he mouth breathes, desaturates, and pull of NC, when sleeping. He was diagnosed with sepsis due to pneumonia, completed Antibiotics. He is also diagnosed with DVT both legs, seen by Dr. Rivera, was put on Arixtra. He had thrombocytopenia, now resolved. He is being switched to Eliquis on 01/07 but will hold for 2 days for thoracentesis due to right pleural effusion. He pulled out Peripheral iv line and Mid line overnight 01/03, and also pulled out right chest tube overnight 01/04. He has been confused, agitated on and off. Started on on Haldol prn , and Seroquel nightly. Acute Hypoxic Respiratory failure- s/p extubated 01/01 Seizure Disorder DVT bilateral lower extremity Sepsis Right sided Pneumonia Large Right sided Pleural effusion- s/p chest tube was placed, s/p removal by patient Shock syndrome questionable septic versus cardiogenic Hypokalemia Morbid Obesity Thrombocytopenia- resolved Non ST elevated HI type II Presumed ischemic cardiomyopathy status post CABG Toxic metabolic encephalopathy Severe Protein calorie malnutrition Hyponatremia Hypocalcemia History of CVA 2 years ago Plan: Previously intubated, extubated on 01/01 , placed on BIPAP nocturnally, placed on Venti mass 50% FiO2 when awake Off heparin drip, was on Arixtra. Plan to start Eliquis post rt thoracentesis which has been pushed back to Sunday 01/14 Resume Plavix after rt thoracentesis ID following Continue AED DVT/GI prophy SCD's holding AC d/t pending thoracentesis Therapeutic and diagnostic right thoracentesis-pending Continues to be confused Continue Seroquel 50 mg nightly Continue Haldol when necessary History Interval history: She was seen today in the IMCU. He remains confused but periods of agitation has improved. There were no acute events Hospitalist Physical - Physical exam Narrative exam: Present: no acute distress, obese - EENT Eyes: Present: PERRL, EOM intact ENT: hearing intact, clear oral mucosa - Neck Neck: Present: supple, normal ROM - Respiratory Respiratory effort: labored Respiratory: bilateral: diminished (poor air movement) - Cardiovascular Heart rate: 96 (beats per minute) Rhythm: regular Heart Sounds: Present: S1 & S2. Absent: rub, click Details: On Ventimask 50% - Extremities Extremities: pulses intact, pulses symmetrical, No edema Peripheral Pulses: within normal limits - Abdominal General gastrointestinal: soft, non-tender, normal bowel sounds, other (obese) - Integumentary Integumentary: Present: warm, dry - Psychiatric Psychiatric: cooperative - Neurologic Neurologic: CNII-XII intact, moves all extremities, other (periods of confusion and agitation) - Allied Health - Constitutional Vitals: Temp Pulse Resp BP Pulse Ox 97.6 F 96 H 31 H 119/53 96 01/09/19 08:00 01/09/19 09:30 01/09/19 09:30 01/09/19 09:30 01/09/19 09:30 General appearance: Present: no acute distress, obese Results - Labs CBC & Chem 7: 01/08/19 05:11 01/08/19 05:11 Labs: Laboratory Last Values WBC 6.2 K/mm3 (4.5-11.0) 01/08/19 05:11 RBC 4.46 M/mm3 (3.65-5.03) 01/08/19 05:11 Hgb 13.2 gm/dl (11.8-15.2) 01/08/19 05:11 Hct 39.9 % (35.5-45.6) 01/08/19 05:11 MCV 89 fl (84-94) 01/08/19 05:11 MCH 30 pg (28-32) 01/08/19 05:11 MCHC 33 % (32-34) 01/08/19 05:11 RDW 16.9 % (13.2-15.2) H 01/08/19 05:11 Plt Count 172 K/mm3 (140-440) 01/08/19 05:11 Lymph % (Auto) 7.5 % (13.4-35.0) L 01/02/19 05:09 [place] % (Auto) 14.2 % (0.0-7.3) H 01/02/19 05:09 Eos % (Auto) 1.3 % (0.0-4.3) 01/02/19 05:09 Baso % (Auto) 0.5 % (0.0-1.8) 01/02/19 05:09 Lymph # 0.3 K/mm3 (1.2-5.4) L 01/02/19 05:09 [place]ayer # 0.6 K/mm3 (0.0-0.8) 01/02/19 05:09 Eos # 0.1 K/mm3 (0.0-0.4) 01/02/19 05:09 Baso # 0.0 K/mm3 (0.0-0.1) 01/02/19 05:09 Seg Neutrophils % 76.5 % (40.0-70.0) H 01/02/19 05:09 Seg Neutrophils # 3.0 K/mm3 (1.8-7.7) 01/02/19 05:09 PT 16.5 Sec. (12.2-14.9) H 12/30/18 18:17 INR 1.25 (0.87-1.13) H 12/30/18 18:17 APTT 33.1 Sec. (24.2-36.6) 12/30/18 18:17 D-Dimer 815.50 ng/mlDDU (0-234) H 12/28/18 23:58 Heparin Anti-Xa Level 0.70 U.I./ml (0.3-0.7) 01/02/19 05:09 Heparin Anti-Xa, Unfract Negative (Negative) 01/02/19 05:26 POC ABG pH 7.318 (7.35-7.45) L 01/02/19 11:21 POC ABG pCO2 56.7 (35-45) H 01/02/19 11:21 POC ABG pO2 215 (80-105) H 01/02/19 11:21 POC ABG HCO3 29.1 (22-26 mml/L) 01/02/19 11:21 POC ABG Total CO2 31 (23-27mmol/L) 01/02/19 11:21 POC ABG O2 Sat 100 01/02/19 11:21 POC ABG Base Excess 3 ((-2) - (+3)mmol/L) 01/02/19 11:21 FiO2 60 % 01/02/19 11:21 Sodium 144 mmol/L (137-145) 01/08/19 05:11 Potassium 4.3 mmol/L (3.6-5.0) 01/08/19 05:11 Chloride 103.5 mmol/L (98-107) 01/08/19 05:11 Carbon Dioxide 30 mmol/L (22-30) 01/08/19 05:11 Anion Gap 15 mmol/L 01/08/19 05:11 BUN 14 mg/dL (9-20) 01/08/19 05:11 Creatinine 1.0 mg/dL (0.8-1.5) 01/08/19 05:11 Estimated GFR > 60 ml/min 01/08/19 05:11 BUN/Creatinine Ratio 14 % 01/08/19 05:11 Glucose 144 mg/dL (75-100) H 01/08/19 05:11 POC Glucose 114 (70-105) H 01/09/19 08:42 Lactic Acid 1.50 mmol/L (0.7-2.0) 12/30/18 11:42 Calcium 8.5 mg/dL (8.4-10.2) 01/08/19 05:11 Magnesium 1.90 mg/dL (1.7-2.3) 01/06/19 00:14 Iron 34 ug/dL (49-181) L 01/02/19 05:09 TIBC 231 mcg/dL (250-450) L 01/02/19 05:09 Ferritin 163.3 ng/mL (13.0-400.0) 01/02/19 05:09 Total Bilirubin 0.60 mg/dL (0.1-1.2) 01/01/19 04:42 AST 23 units/L (5-40) 01/01/19 04:42 ALT 10 units/L (7-56) 01/01/19 04:42 Alkaline Phosphatase 53 units/L (35-129) 01/01/19 04:42 Lactate Dehydrogenase 405 units/L (91-180) H 12/29/18 15:02 Total Creatine Kinase 837 units/L (55-170) H 12/29/18 12:51 CK-MB (CK-2) 10.5 ng/mL (0.0-4.0) H 12/29/18 12:51 CK-MB (CK-2) Rel Index 1.2 (0-4) 12/29/18 12:51 Troponin T 0.060 ng/mL (0.00-0.029) H D 12/30/18 13:53 C-Reactive Protein 2.80 mg/dL (0.00-1.30) H 12/29/18 16:46 NT-Pro-B Natriuret Pep 4783 pg/mL (0-900) H 01/06/19 17:04 Total Protein 4.9 g/dL (6.3-8.2) L 01/01/19 04:42 Albumin 2.3 g/dL (3.9-5) L 01/01/19 04:42 Albumin/Globulin Ratio 0.9 % 01/01/19 04:42 Triglycerides 113 mg/dL (2-149) 12/29/18 08:34 Cholesterol 120 mg/dL (50-199) 12/29/18 08:34 LDL Cholesterol Direct 82 mg/dL (50-130) 12/29/18 08:34 HDL Cholesterol 34 mg/dL (40-59) L 12/29/18 08:34 Cholesterol/HDL Ratio 3.52 % 12/29/18 08:34 Serotonin Release Assay See scanned result 01/02/19 05:26 Vitamin B12 365.3 pg/mL (211-911) 01/02/19 05:09 Folate 6.01 ng/mL (7.3-26.0) L 01/02/19 05:09 Urine Color Yolande (Yellow) 12/29/18 03:00 Urine Turbidity Cloudy (Clear) 12/29/18 03:00 Urine pH 5.0 (5.0-7.0) 12/29/18 03:00 Ur Specific [place] 1.033 (1.003-1.030) H 12/29/18 03:00 Urine Protein >500 mg/dL (Negative) 12/29/18 03:00 Urine Glucose (UA) 150 mg/dL (Negative) 12/29/18 03:00 Urine Ketones Neg mg/dL (Negative) 12/29/18 03:00 Urine Blood Mod (Negative) 12/29/18 03:00 Urine Nitrite Neg (Negative) 12/29/18 03:00 Urine Bilirubin Neg (Negative) 12/29/18 03:00 Urine Urobilinogen < 2.0 mg/dL (<2.0) 12/29/18 03:00 Ur Leukocyte Esterase Neg (Negative) 12/29/18 03:00 Urine WBC (Auto) 31.0 /HPF (0.0-6.0) H 12/29/18 03:00 Urine RBC (Auto) 27.0 /HPF (0.0-6.0) 12/29/18 03:00 U Epithel Cells (Auto) 4.0 /HPF (0-13.0) 12/29/18 03:00 Urine Bacteria (Auto) 4+ /HPF (Negative) 12/29/18 03:00 Urine Mucus 3+ /HPF 12/29/18 03:00 Urine Opiates Screen Presumptive negative 12/29/18 03:00 Urine Methadone Screen Presumptive negative 12/29/18 03:00 Ur Barbiturates Screen Presumptive negative 12/29/18 03:00 Ur Phencyclidine Scrn Presumptive negative 12/29/18 03:00 Ur Amphetamines Screen Presumptive negative 12/29/18 03:00 U Benzodiazepines Scrn Presumptive negative 12/29/18 03:00 Urine Cocaine Screen Presumptive negative 12/29/18 03:00 U Marijuana (THC) Screen Presumptive negative 12/29/18 03:00 Drugs of Abuse Note Disclamer 12/29/18 03:00 Heparin-induced Plt Ab Negative (Negative) 01/02/19 05:26 UF Heparin High Dose 0 % Release 01/02/19 05:26 THOMAS UFH Low Dose 0.1 0 % Release 01/02/19 05:26 THOMAS UFH Low Dose 0.5 0 % Release 01/02/19 05:26 Urine Legionella Ag Not detected (Not Detected) 12/31/18 05:30 Blood Type O POSITIVE 12/29/18 01:53 Antibody Screen Negative 12/29/18 01:53 Crossmatch See Detail 12/29/18 01:53 Active Medications - Current Medications Current Medications: Generic Name Dose Route Start Last Admin Trade Name Freq PRN Reason Stop Dose Admin Acetaminophen 650 mg 12/29/18 04:49 12/30/18 08:33 Tylenol VT 650 mg Q4H PRN Administration Fever >101 Albuterol/Ipratropium 1 ampul 01/01/19 14:00 01/09/19 09:20 Duoneb *Not For Prn Use* IH 1 ampul Q6HRT WENDY Administration Atorvastatin Calcium 40 mg 01/04/19 22:00 01/08/19 21:36 Lipitor PO 40 mg QHS WENDY Administration Dextrose 50 ml 12/29/18 04:47 D50w (25gm) Syringe IV PRN PRN Hypoglycemia Famotidine 20 mg 01/04/19 10:00 01/08/19 21:36 Pepcid PO 20 mg BID WENDY Administration Folic Acid 1 mg 01/06/19 12:00 01/08/19 09:28 Folvite PO 1 mg QDAY WENDY Administration Furosemide 20 mg 01/06/19 18:00 01/09/19 05:38 Lasix IV 20 mg 0600,1800 WENDY Administration Haloperidol Lactate 5 mg 01/07/19 11:33 01/08/19 01:50 Haldol IM 5 mg Q6H PRN Administration Agitation Hydralazine HCl 10 mg 01/01/19 13:23 Apresoline IV Q4HR PRN SBP >/=170 Insulin Human Regular 0 units 01/04/19 11:30 01/09/19 09:23 Humulin R SUB-Q Not Given ACHS [facility] Protocol Levetiracetam 500 mg 01/04/19 10:00 01/08/19 21:34 Keppra PO 500 mg BID WENDY Administration Losartan Potassium 50 mg 01/04/19 11:00 01/08/19 09:27 Cozaar PO 50 mg DAILY [facility] Administration Metoprolol Tartrate 12.5 mg 01/03/19 11:00 01/08/19 21:36 Lopressor PO 12.5 mg BID WENDY Administration Ondansetron HCl 4 mg 12/29/18 04:49 Zofran IV Q8H PRN Nausea And Vomiting Quetiapine Fumarate 50 mg 01/08/19 22:00 01/08/19 21:35 Seroquel PO 50 mg QHS WENDY Administration Zolpidem Tartrate 5 mg 01/07/19 11:08 01/07/19 21:48 Ambien PO 5 mg QHS PRN Administration Sleep Nutrition/Malnutrition Assess - Dietary Evaluation Nutrition/Malnutrition Findings: Nutrition Notes Start: 12/31/18 14:59 Freq: Status: Active Protocol: Document 01/07/19 12:07 LIZ (Rec: 01/07/19 12:13 [email or web address]) Nutrition Notes Initial or Follow up Reassessment Current Diagnosis Coronary Artery Disease, Diabetes,Hypertension, Respiratory Failure Other Pertinent Diagnosis (R) lung effusion, (R) pneu Current Diet Cardiac/consistent carbohydrate + Glucerna daily Labs/Tests Reviewed Pertinent Medications Reviewed Height 5 ft 7 in Weight 131.19 kg Gray Body Weight (kg) 67.27 BMI 45.3 Weight change and time frame Current wt obtained from bed scale Subjective/Other Information Pt reports poor appetite, but does drink the Glucerna. Pt family member states that he ate "a little bit" yesterday. Burn Absent Trauma Absent #1 Nutrition Diagnosis Inadequate oral intake Diagnosis Progress(for reassessment Continues documentation) Is patient on ventilator? No Is Patient Ambulatory and/or Out of Bed No REE-([facility]-confined to bed) 2412.252 Kcal/Kg value to use for calculation 14 Approximate Energy Requirements Using 1837 kcal/Kg Additional Notes Pro needs 1-1.2g/kg adjBW: 99- 119g/day Fluid needs 1ml/kcal Nutrition Intervention Change Diet Order: Continue current diet order Add Supplement/Snack (indicate name/kcal Glucerna [place] BID /protein ) Provides kCal: 440 Provides Protein (gm) 20 Goal #1 PO intake of meals plus ONS to meet at least 75% of energy and pro needs Follow-Up By: 01/11/19 Additional Comments F/U: intakes <FOX HERNANDEZ M - Last Filed: 01/12/19 18:35> Assessment and Plan Assessment and plan: I saw and evaluated the patient. I agree with the findings and the plan of care as documented in the Nurse Practitioner's~note, with the following corrections and additions. bilateral pleural effusion; likely due to CHF sp R thoracentesis which yielded transudate, awaiting repeat Thoracentesis -eliquis and plavix on hold, -JIMY per hematology in meantime History Interval history: he is less confused, sob is improving, no agitation today, no cough, no abdominal pain, no fever, no seizures Hospitalist Physical - Physical exam Narrative exam: patient on ventimask due to mouth breathing when asleep, dullness to both lower lungs on exam - Constitutional Vitals: Temp Pulse Resp BP Pulse Ox 97.5 F L 88 18 117/62 94 01/12/19 13:15 01/12/19 14:03 01/12/19 14:03 01/12/19 13:15 01/12/19 13:15 Results - Labs CBC & Chem 7: 01/11/19 04:09 01/11/19 04:09 Labs: Laboratory Last Values WBC 4.4 K/mm3 (4.5-11.0) L 01/11/19 04:09 RBC 4.32 M/mm3 (3.65-5.03) 01/11/19 04:09 Hgb 12.6 gm/dl (11.8-15.2) 01/11/19 04:09 Hct 38.6 % (35.5-45.6) 01/11/19 04:09 MCV 89 fl (84-94) 01/11/19 04:09 MCH 29 pg (28-32) 01/11/19 04:09 MCHC 33 % (32-34) 01/11/19 04:09 RDW 16.5 % (13.2-15.2) H 01/11/19 04:09 Plt Count 131 K/mm3 (140-440) L 01/11/19 04:09 Lymph % (Auto) 15.0 % (13.4-35.0) 01/11/19 04:09 Thayer % (Auto) 11.8 % (0.0-7.3) H 01/11/19 04:09 Eos % (Auto) 2.9 % (0.0-4.3) 01/11/19 04:09 Baso % (Auto) 0.4 % (0.0-1.8) 01/11/19 04:09 Lymph # 0.7 K/mm3 (1.2-5.4) L 01/11/19 04:09 [place]ayer # 0.5 K/mm3 (0.0-0.8) 01/11/19 04:09 Eos # 0.1 K/mm3 (0.0-0.4) 01/11/19 04:09 Baso # 0.0 K/mm3 (0.0-0.1) 01/11/19 04:09 Seg Neutrophils % 69.9 % (40.0-70.0) 01/11/19 04:09 Seg Neutrophils # 3.0 K/mm3 (1.8-7.7) 01/11/19 04:09 PT 16.5 Sec. (12.2-14.9) H 12/30/18 18:17 INR 1.25 (0.87-1.13) H 12/30/18 18:17 APTT 33.1 Sec. (24.2-36.6) 12/30/18 18:17 D-Dimer 815.50 ng/mlDDU (0-234) H 12/28/18 23:58 Heparin Anti-Xa Level 0.70 U.I./ml (0.3-0.7) 01/02/19 05:09 Heparin Anti-Xa, Unfract Negative (Negative) 01/02/19 05:26 POC ABG pH 7.318 (7.35-7.45) L 01/02/19 11:21 POC ABG pCO2 56.7 (35-45) H 01/02/19 11:21 POC ABG pO2 215 (80-105) H 01/02/19 11:21 POC ABG HCO3 29.1 (22-26 mml/L) 01/02/19 11:21 POC ABG Total CO2 31 (23-27mmol/L) 01/02/19 11:21 POC ABG O2 Sat 100 01/02/19 11:21 POC ABG Base Excess 3 ((-2) - (+3)mmol/L) 01/02/19 11:21 FiO2 60 % 01/02/19 11:21 Sodium 146 mmol/L (137-145) H 01/11/19 04:09 Potassium 3.4 mmol/L (3.6-5.0) L D 01/11/19 04:09 Chloride 96.9 mmol/L (98-107) L 01/11/19 04:09 Carbon Dioxide 40 mmol/L (22-30) H D 01/11/19 04:09 Anion Gap 13 mmol/L 01/11/19 04:09 BUN 11 mg/dL (9-20) 01/11/19 04:09 Creatinine 0.7 mg/dL (0.8-1.5) L 01/11/19 04:09 Estimated GFR > 60 ml/min 01/11/19 04:09 BUN/Creatinine Ratio 16 % 01/11/19 04:09 Glucose 110 mg/dL (75-100) H 01/11/19 04:09 POC Glucose 168 (70-105) H 01/12/19 16:33 Lactic Acid 1.50 mmol/L (0.7-2.0) 12/30/18 11:42 Calcium 8.9 mg/dL (8.4-10.2) 01/11/19 04:09 Phosphorus 2.30 mg/dL (2.5-4.5) L 01/11/19 04:09 Magnesium 2.00 mg/dL (1.7-2.3) 01/11/19 04:09 Iron 34 ug/dL (49-181) L 01/02/19 05:09 TIBC 231 mcg/dL (250-450) L 01/02/19 05:09 Ferritin 163.3 ng/mL (13.0-400.0) 01/02/19 05:09 Total Bilirubin 0.70 mg/dL (0.1-1.2) 01/11/19 04:09 AST 17 units/L (5-40) 01/11/19 04:09 ALT 11 units/L (7-56) 01/11/19 04:09 Alkaline Phosphatase 51 units/L (35-129) 01/11/19 04:09 Lactate Dehydrogenase 405 units/L (91-180) H 12/29/18 15:02 Total Creatine Kinase 837 units/L (55-170) H 12/29/18 12:51 CK-MB (CK-2) 10.5 ng/mL (0.0-4.0) H 12/29/18 12:51 CK-MB (CK-2) Rel Index 1.2 (0-4) 12/29/18 12:51 Troponin T 0.060 ng/mL (0.00-0.029) H D 12/30/18 13:53 C-Reactive Protein 2.80 mg/dL (0.00-1.30) H 12/29/18 16:46 NT-Pro-B Natriuret Pep 4783 pg/mL (0-900) H 01/06/19 17:04 Total Protein 5.4 g/dL (6.3-8.2) L 01/11/19 04:09 Albumin 2.6 g/dL (3.9-5) L 01/11/19 04:09 Albumin/Globulin Ratio 0.9 % 01/11/19 04:09 Triglycerides 113 mg/dL (2-149) 12/29/18 08:34 Cholesterol 120 mg/dL (50-199) 12/29/18 08:34 LDL Cholesterol Direct 82 mg/dL (50-130) 12/29/18 08:34 HDL Cholesterol 34 mg/dL (40-59) L 12/29/18 08:34 Cholesterol/HDL Ratio 3.52 % 12/29/18 08:34 Serotonin Release Assay See scanned result 01/02/19 05:26 Vitamin B12 365.3 pg/mL (211-911) 01/02/19 05:09 Folate 6.01 ng/mL (7.3-26.0) L 01/02/19 05:09 Urine Color [place]olande (Yellow) 12/29/18 03:00 Urine Turbidity Cloudy (Clear) 12/29/18 03:00 Urine pH 5.0 (5.0-7.0) 12/29/18 03:00 Ur Specific [place] 1.033 (1.003-1.030) H 12/29/18 03:00 Urine Protein >500 mg/dL (Negative) 12/29/18 03:00 Urine Glucose (UA) 150 mg/dL (Negative) 12/29/18 03:00 Urine Ketones Neg mg/dL (Negative) 12/29/18 03:00 Urine Blood Mod (Negative) 12/29/18 03:00 Urine Nitrite Neg (Negative) 12/29/18 03:00 Urine Bilirubin Neg (Negative) 12/29/18 03:00 Urine Urobilinogen < 2.0 mg/dL (<2.0) 12/29/18 03:00 Ur Leukocyte Esterase Neg (Negative) 12/29/18 03:00 Urine WBC (Auto) 31.0 /HPF (0.0-6.0) H 12/29/18 03:00 Urine RBC (Auto) 27.0 /HPF (0.0-6.0) 12/29/18 03:00 U Epithel Cells (Auto) 4.0 /HPF (0-13.0) 12/29/18 03:00 Urine Bacteria (Auto) 4+ /HPF (Negative) 12/29/18 03:00 Urine Mucus 3+ /HPF 12/29/18 03:00 Urine Opiates Screen Presumptive negative 12/29/18 03:00 Urine Methadone Screen Presumptive negative 12/29/18 03:00 Ur Barbiturates Screen Presumptive negative 12/29/18 03:00 Ur Phencyclidine Scrn Presumptive negative 12/29/18 03:00 Ur Amphetamines Screen Presumptive negative 12/29/18 03:00 U Benzodiazepines Scrn Presumptive negative 12/29/18 03:00 Urine Cocaine Screen Presumptive negative 12/29/18 03:00 U Marijuana (THC) Screen Presumptive negative 12/29/18 03:00 Drugs of Abuse Note Disclamer 12/29/18 03:00 Heparin-induced Plt Ab Negative (Negative) 01/02/19 05:26 UF Heparin High Dose 0 % Release 01/02/19 05:26 THOMAS UFH Low Dose 0.1 0 % Release 01/02/19 05:26 THOMAS UFH Low Dose 0.5 0 % Release 01/02/19 05:26 Urine Legionella Ag Not detected (Not Detected) 12/31/18 05:30 Blood Type O POSITIVE 12/29/18 01:53 Antibody Screen Negative 12/29/18 01:53 Crossmatch See Detail 12/29/18 01:53 Active Medications - Current Medications Current Medications: Generic Name Dose Route Start Last Admin Trade Name Freq PRN Reason Stop Dose Admin Acetaminophen 650 mg 12/29/18 04:49 12/30/18 08:33 Tylenol VT 650 mg Q4H PRN Administration Fever >101 Albuterol/Ipratropium 1 ampul 01/01/19 14:00 01/12/19 13:52 Duoneb *Not For Prn Use* IH 1 ampul Q6HRT WENDY Administration Atorvastatin Calcium 40 mg 01/04/19 22:00 01/11/19 21:55 Lipitor PO 40 mg QHS WENDY Administration Dextrose 50 ml 12/29/18 04:47 D50w (25gm) Syringe IV PRN PRN Hypoglycemia Famotidine 20 mg 01/04/19 10:00 01/12/19 09:56 Pepcid PO 20 mg BID WENDY Administration Folic Acid 1 mg 01/06/19 12:00 01/12/19 09:56 Folvite PO 1 mg QDAY WENDY Administration Furosemide 40 mg 01/11/19 10:00 01/12/19 09:57 Lasix IV 40 mg 1000 WENDY Administration Gabapentin 300 mg 01/10/19 22:00 01/11/19 21:56 Neurontin PO 300 mg HS WENDY Administration Haloperidol Lactate 5 mg 01/07/19 11:33 01/12/19 02:21 Haldol IM 5 mg Q6H PRN Administration Agitation Hydralazine HCl 10 mg 01/01/19 13:23 Apresoline IV Q4HR PRN SBP >/=170 Insulin Human Regular 0 units 01/04/19 11:30 01/12/19 17:28 Humulin R SUB-Q 1 units ACHS WENDY Administration Protocol Levetiracetam 500 mg 01/04/19 10:00 01/12/19 09:57 Keppra PO 500 mg BID WENDY Administration Losartan Potassium 50 mg 01/04/19 11:00 01/12/19 09:55 Cozaar PO 50 mg DAILY WENDY Administration Metformin HCl 500 mg 01/10/19 17:00 01/12/19 17:29 Glucophage Xr PO 500 mg BIDDIAB WENDY Administration Metoprolol Tartrate 12.5 mg 01/03/19 11:00 01/12/19 09:56 Lopressor PO 12.5 mg BID WENDY Administration Ondansetron HCl 4 mg 12/29/18 04:49 Zofran IV Q8H PRN Nausea And Vomiting Quetiapine Fumarate 50 mg 01/08/19 22:00 01/11/19 21:56 Seroquel PO 50 mg QHS WENDY Administration Ropinirole HCl 1 mg 01/11/19 10:00 01/12/19 09:55 Requip PO 1 mg DAILY WENDY Administration Sertraline HCl 100 mg 01/11/19 10:00 01/12/19 09:55 Zoloft PO 100 mg QDAY WENDY Administration Nutrition/Malnutrition Assess - Dietary Evaluation Nutrition/Malnutrition Findings: Nutrition Notes Start: 12/31/18 14:59 Freq: Status: Active Protocol: Document 01/12/19 11:17 LIZ (Rec: 01/12/19 11:22 LIZ [email or web address]) Nutrition Notes Initial or Follow up Reassessment Current Diagnosis Coronary Artery Disease, Diabetes,Hypertension, Respiratory Failure Other Pertinent Diagnosis (R) lung effusion, (R) pneu Current Diet Cardiac/consistent carbohydrate + Glucerna BID Labs/Tests Reviewed Pertinent Medications Reviewed Height 5 ft 7 in Weight 126.5 kg Gray Body Weight (kg) 67.27 BMI 43.7 Subjective/Other Information Pt consuming 19% of meals. He is confused and agitated at times. Burn Absent Trauma Absent #1 Nutrition Diagnosis Inadequate oral intake Diagnosis Progress(for reassessment Continues documentation) Is patient on ventilator? No Is Patient Ambulatory and/or Out of Bed No REE-([facility]-confined to bed) 2356.032 Kcal/Kg value to use for calculation 14 Approximate Energy Requirements Using 1771 kcal/Kg Additional Notes Pro needs 1-1.2g/kg adjBW: 97- 116g/day Fluid needs 1ml/kcal Nutrition Intervention Change Diet Order: Continue current diet order Add Supplement/Snack (indicate name/kcal Glucerna [place] BID /protein ) Provides kCal: 440 Provides Protein (gm) 20 Goal #1 PO intake of meals plus ONS to meet at least 75% of energy and pro needs Follow-Up By: 01/15/19 Additional Comments F/U: intakes (meals/ONS), wt
--- NOTE | 2019-01-09 10:47 | Progress Note ---
Assessment and Plan Cultures: 12/28/2018 sputum culture: Normal respiratory ramses 12/29/2018 right pleural fluid culture: No growth in 24 hours / no organisms, no PMN, few mononuclear cells 12/29/2018 blood culture: no growth 12/29/2018 urine culture: No growth in 24 hours A/P: 73-year-old male with history of morbid obesity, ELIGIO on CPAP, CAD s/p CABG, diabetes, restless leg syndrome was brought to the emergency room on 12/28/2018 with a respiratory arrest: 1) Shock, etiology unclear: septic v/s cardiogenic. Resolved. No fever prior to admission, no leucocytosis. Fever resolved. Unclear etiology?. Large R pleural effusion, ?underlying pneumonia. No urinary symptoms, urine culture with no growth (UA with some pyuria). 2) Acute respiratory failure: better; off the vent on BIPAP 3) Large R pleural effusion: s/p thoracentesis and chest tube on 12/29/2018. Patient removed CT. Cannot rule out underlying pneumonia v/s aspiration from seizure. Pleural fluid studies pending/no sent. Pleural Gram stain not c/w empyema. Pleural culture so far negative. 12/28/2018 sputum culture showed Normal respiratory ramses. legionella not detected 4) ?Seizures: per family with previous history of seizures. Neurology on board. 5) PCN allergy: remote allergy as a child. agreeable to try Cephalosporins. 6) Thrombocytopenia: better? meds Recs: continue IV Cefepime 2 gm q8 hrs + IV Flagyl 500 mg q8 hrs D 10 of 10 Will follow Alyssa Cruz MD Infectious Diseases [employer] [facility] ([facility] M [phone] O [phone] Subjective Date of service: 01/09/19 Principal diagnosis: dvt - low plt Interval history: More alert still confused unintelligible speech mask O2, no fever ROS: denies SOB, N//V/D Objective - Exam Narrative Exam: General appearance: alert unintelligible speech Eyes: anicteric sclerae, moist conjunctivae; no lid-lag; PERRLA HENT: Atraumatic; oropharynx with O2 mask Neck: Trachea midline; supple, no thyromegaly or lymphadenopathy Lungs: coarse himanshu CV: RRR Abdomen: Soft, obese non-tender Extremities: himanshu arm/legs edema Skin: himanshu arms ecchymoses Psych: no agitated Neuro: somnolent unintelligible speech - Constitutional Vitals: Vital Signs Temp Pulse Resp BP Pulse Ox 97.6 F 96 H 31 H 119/53 96 01/09/19 08:00 01/09/19 09:30 01/09/19 09:30 01/09/19 09:30 01/09/19 09:30 Temperature -Last 24 Hours Temperature 97.6 F Temperature 98.4 F Temperature 98.6 F Temperature 98.6 F Temperature 98.4 F Temperature 98.4 F Temperature 96.7 F Temperature 97.5 F - Labs CBC & Chem 7: 01/08/19 05:11 01/08/19 05:11 Labs: Abnormal lab results 01/08/19 01/08/19 01/08/19 Range/Units 11:56 16:40 21:36 POC Glucose 162 H 166 H 166 H (70-105) 01/09/19 Range/Units 08:42 POC Glucose 114 H (70-105)
--- NOTE | 2019-01-09 10:56 | Progress Note ---
Assessment and Plan Cont present cardiac management. Pt appears to be pending thoracentesis in the near future - Eliquis and Plavix held. Can consider ischemic evaluation once medically stabilized. The patient has been seen in conjunction with Dr. Harding who agrees with the assessment and plan of care. - Patient Problems (1) Acute respiratory failure Current Visit: Yes Status: Acute (2) CAD (coronary artery disease) Current Visit: Yes Status: Chronic Qualifiers: Coronary Disease-Associated Artery/Lesion type: [place] artery (3) Hx of CABG Current Visit: Yes Status: Chronic (4) Sepsis Current Visit: Yes Status: Suspected (5) Pneumonia Current Visit: Yes Status: Suspected (6) Pleural effusion Current Visit: Yes Status: Resolved (7) Non-STEMI (non-ST elevated myocardial infarction) Current Visit: Yes Status: Acute (8) HTN (hypertension) Current Visit: Yes Status: Chronic (9) Diabetes mellitus Current Visit: Yes Status: Chronic (10) History of CVA (cerebrovascular accident) Current Visit: Yes Status: Chronic (11) History of left-sided carotid endarterectomy Current Visit: Yes Status: Chronic (12) History of seizure Current Visit: Yes Status: Chronic (13) Anemia Current Visit: Yes Status: Acute Qualifiers: Anemia type: unspecified type Qualified Code(s): D64.9 - Anemia, unspecified (14) Thrombocytopenia Current Visit: Yes Status: Acute (15) DVT (deep venous thrombosis) Current Visit: Yes Status: Acute Subjective Date of service: 01/09/19 Principal diagnosis: dvt - low plt Interval history: pt resting in bed, on O2 via ventimask. Intermittently confused and agitated overnight. Objective Last Vital Signs Temp 97.6 F 01/09/19 08:00 Pulse 96 H 01/09/19 09:30 Resp 31 H 01/09/19 09:30 BP 119/53 01/09/19 09:30 Pulse Ox 96 01/09/19 09:30 - Physical Examination General: No Apparent Distress HEENT: Positive: EOMI, Normocephaly, Mucus Membranes Moist Neck: Positive: neck supple, trachea midline Cardiac: Positive: Reg Rate and Rhythm, S1/S2 Lungs: Positive: Decreased Breath Sounds, Oxygen Neuro: Positive: Grossly Intact Abdomen: Positive: Soft, Active Bowel Sounds. Negative: Tender Skin: Positive: Clear. Negative: Rash Musculoskeletal: Normal Range of Motion Extremities: Present: +1 Edema (bilateral leg edema) - Imaging and Cardiology EKG: image reviewed Echo: report reviewed (12/29/2018: EF 45-50%) - EKG Sinus rhythms and dysrhythmias: sinus rhythm Ventricular dysrhythmias: ventricular premature com AV and intraventricular conduction: 1 AV block, intraventricular conducti Repolarization changes or abnormalities: nonspecific abnormality, ST segment, and/or T wave - Allied health notes Allied health notes reviewed: nursing
--- NOTE | 2019-01-09 20:34 | Progress Note ---
Assessment and Plan Patient awake. Following simple commands. Resting on venturi mask, FIO2 50% and O2 saturation 93%.Patient goes on BIPAP during night time and PRN for shortness of breath during day time. .Patient is at bed side. Talk to her and explained patients respiratory status. - Patient Problems (1) Acute respiratory failure Current Visit: Yes Status: Acute Plan to address problem: BIPAP 15/8, rate 20, FIO2 35%. Albuterol/atrovent aerosol treatments q 6 hours. Continue famotidine. SCDs (2) Pleural effusion, right Current Visit: Yes Status: Acute Plan to address problem: Patient undergone thoracentesis. Repeating chest xray. (3) CAD (coronary artery disease) Current Visit: Yes Status: Chronic Plan to address problem: Management as per cardiology. (4) Diabetes mellitus Current Visit: Yes Status: Chronic Plan to address problem: Management as per primary care. (5) HTN (hypertension) Current Visit: Yes Status: Chronic Plan to address problem: Management as per primary care. (6) History of CVA (cerebrovascular accident) Current Visit: Yes Status: Chronic Plan to address problem: Management as per primary care. Subjective Date of service: 01/09/19 Principal diagnosis: dvt - low plt Interval history: Patient awake. Following simple commands. Resting on venturi mask, FIO2 50% and O2 saturation 93%.Patient goes on BIPAP during night time and PRN for shortness of breath during day time. Patient is at bed side. Talk to her and explained patients respiratory status. Objective Vital Signs - 12hr 01/09/19 01/09/19 01/09/19 08:30 09:00 09:17 Temperature Pulse Rate 90 96 H Pulse Rate [ Anterior Bilateral Throughout] Pulse Rate [ Bilateral] Pulse Rate [ From Monitor] Respiratory 23 29 H Rate Respiratory Rate [Anterior Bilateral Throughout] Respiratory Rate [Bilateral ] Blood Pressure 114/50 117/45 O2 Sat by Pulse 100 96 96 Oximetry 01/09/19 01/09/19 01/09/19 09:21 09:28 09:30 Temperature Pulse Rate 96 H Pulse Rate [ 97 H Anterior Bilateral Throughout] Pulse Rate [ 96 H 95 H Bilateral] Pulse Rate [ From Monitor] Respiratory 31 H Rate Respiratory 23 Rate [Anterior Bilateral Throughout] Respiratory 23 22 Rate [Bilateral ] Blood Pressure 119/53 O2 Sat by Pulse 96 Oximetry 0501/09/19 01/09/19 10:00 10:30 11:00 Temperature Pulse Rate 97 H 95 H 94 H Pulse Rate [ Anterior Bilateral Throughout] Pulse Rate [ Bilateral] Pulse Rate [ From Monitor] Respiratory 28 H 30 H 32 H Rate Respiratory Rate [Anterior Bilateral Throughout] Respiratory Rate [Bilateral ] Blood Pressure 109/44 116/48 112/50 O2 Sat by Pulse 94 93 93 Oximetry 01/09/19 01/09/19 01/09/19 11:30 12:00 12:30 Temperature 98.8 F Pulse Rate 94 H 91 H 95 H Pulse Rate [ Anterior Bilateral Throughout] Pulse Rate [ Bilateral] Pulse Rate [ 86 From Monitor] Respiratory 26 H 27 H 30 H Rate Respiratory Rate [Anterior Bilateral Throughout] Respiratory Rate [Bilateral ] Blood Pressure 122/48 117/54 124/57 O2 Sat by Pulse 93 94 93 Oximetry 01/09/19 01/09/19 01/09/19 13:00 13:30 14:00 Temperature Pulse Rate 93 H 91 H 80 Pulse Rate [ Anterior Bilateral Throughout] Pulse Rate [ Bilateral] Pulse Rate [ From Monitor] Respiratory 33 H 21 27 H Rate Respiratory Rate [Anterior Bilateral Throughout] Respiratory Rate [Bilateral ] Blood Pressure 115/52 121/51 122/54 O2 Sat by Pulse 93 92 94 Oximetry 01/09/19 01/09/19 01/09/19 14:23 14:30 14:55 Temperature Pulse Rate 94 H Pulse Rate [ Anterior Bilateral Throughout] Pulse Rate [ 90 92 H Bilateral] Pulse Rate [ From Monitor] Respiratory 26 H Rate Respiratory Rate [Anterior Bilateral Throughout] Respiratory 22 22 Rate [Bilateral ] Blood Pressure 121/60 O2 Sat by Pulse 85 Oximetry 01/09/19 01/09/19 01/09/19 15:00 15:30 16:00 Temperature 98.4 F Pulse Rate 85 93 H 80 Pulse Rate [ Anterior Bilateral Throughout] Pulse Rate [ Bilateral] Pulse Rate [ 86 From Monitor] Respiratory 25 H 27 H 23 Rate Respiratory Rate [Anterior Bilateral Throughout] Respiratory Rate [Bilateral ] Blood Pressure 131/59 127/70 O2 Sat by Pulse 94 95 99 Oximetry 01/09/19 01/09/19 01/09/19 16:01 16:30 17:01 Temperature Pulse Rate 95 H 92 H 88 Pulse Rate [ Anterior Bilateral Throughout] Pulse Rate [ Bilateral] Pulse Rate [ From Monitor] Respiratory 22 18 18 Rate Respiratory Rate [Anterior Bilateral Throughout] Respiratory Rate [Bilateral ] Blood Pressure 114/77 120/58 137/63 O2 Sat by Pulse 94 94 97 Oximetry 01/09/19 01/09/19 01/09/19 17:31 18:01 18:30 Temperature Pulse Rate 95 H 90 77 Pulse Rate [ Anterior Bilateral Throughout] Pulse Rate [ Bilateral] Pulse Rate [ From Monitor] Respiratory 25 H 19 21 Rate Respiratory Rate [Anterior Bilateral Throughout] Respiratory Rate [Bilateral ] Blood Pressure 143/73 132/57 121/54 O2 Sat by Pulse 98 98 98 Oximetry 01/09/19 01/09/19 01/09/19 19:00 19:30 20:00 Temperature 99.3 F Pulse Rate 67 82 Pulse Rate [ Anterior Bilateral Throughout] Pulse Rate [ 91 H Bilateral] Pulse Rate [ From Monitor] Respiratory 19 15 Rate Respiratory Rate [Anterior Bilateral Throughout] Respiratory 26 H Rate [Bilateral ] Blood Pressure 143/55 137/51 O2 Sat by Pulse 99 98 98 Oximetry 01/09/19 20:01 Temperature Pulse Rate 90 Pulse Rate [ Anterior Bilateral Throughout] Pulse Rate [ Bilateral] Pulse Rate [ From Monitor] Respiratory 29 H Rate Respiratory Rate [Anterior Bilateral Throughout] Respiratory Rate [Bilateral ] Blood Pressure 122/47 O2 Sat by Pulse 98 Oximetry Constitutional: no acute distress, alert, other (elderly looking morbidly obese CM normocephalic and withmildly increased work of breathing at rest) Eyes: non-icteric ENT: oropharynx moist Neck: supple, no lymphadenopathy, no JVD, other (large neck circumference) Effort: mildly labored Ascultation: Bilateral: diminished breath sounds, rhonchi (bases), other (Right chest tube) Percussion: Bilateral: not dull Cardiovascular: regular rate and rhythm, other (No R/M) Gastrointestinal: normoactive bowel sounds, soft, non-tender, non-distended Integumentary: normal Extremities: no cyanosis, pink and warm, pulses normal, no ischemia or petechiae, edema (1+) Neurologic: normal mental status, non-focal exam (grossly), pupils equal and round, CN II-XII normal, motor strength normal and Psychiatric: mood appropriate CBC and BMP: 01/08/19 05:11 01/08/19 05:11 ABG, PT/INR, D-dimer: ABG POC ABG pH 7.318 (7.35-7.45) L 01/02/19 11:21 POC ABG pCO2 56.7 (35-45) H 01/02/19 11:21 POC ABG pO2 215 (80-105) H 01/02/19 11:21 POC ABG HCO3 29.1 (22-26 mml/L) 01/02/19 11:21 POC ABG Total CO2 31 (23-27mmol/L) 01/02/19 11:21 POC ABG O2 Sat 100 01/02/19 11:21 PT/INR, D-dimer PT 16.5 Sec. (12.2-14.9) H 12/30/18 18:17 INR 1.25 (0.87-1.13) H 12/30/18 18:17 D-Dimer 815.50 ng/mlDDU (0-234) H 12/28/18 23:58 Abnormal lab findings: Abnormal Labs 12/28/18 12/28/18 12/28/18 23:58 23:58 23:58 WBC RBC 2.24 L Hgb 6.7 L Hct 20.9 L RDW 16.4 H Plt Count 99 L Lymph % (Auto) 10.7 L [place] % (Auto) 7.9 H Lymph # 0.6 L [place] # Seg Neutrophils % 80.7 H PT INR D-Dimer 815.50 H Heparin Anti-Xa Level POC ABG pH POC ABG pCO2 POC ABG pO2 Sodium 148 H Potassium 2.3 L* Chloride 128.4 H Carbon Dioxide 12 L BUN Creatinine 0.4 L Glucose POC Glucose Lactic Acid Calcium 5.0 L* Iron TIBC Total Bilirubin AST ALT < 5 L Lactate Dehydrogenase Total Creatine Kinase 44 L CK-MB (CK-2) CK-MB (CK-2) Rel Index 4.3 H Troponin T C-Reactive Protein NT-Pro-B Natriuret Pep Total Protein 2.3 L Albumin 1.1 L HDL Cholesterol Folate Ur Specific [place] Urine WBC (Auto) Crossmatch 12/28/18 12/29/18 12/29/18 23:58 00:27 01:53 WBC RBC Hgb Hct RDW Plt Count Lymph % (Auto) [place] % (Auto) Lymph # [place] # Seg Neutrophils % PT INR D-Dimer Heparin Anti-Xa Level POC ABG pH 7.169 L POC ABG pCO2 POC ABG pO2 Sodium Potassium Chloride Carbon Dioxide BUN Creatinine Glucose POC Glucose Lactic Acid Calcium Iron TIBC Total Bilirubin AST ALT Lactate Dehydrogenase Total Creatine Kinase CK-MB (CK-2) CK-MB (CK-2) Rel Index Troponin T C-Reactive Protein NT-Pro-B Natriuret Pep 1209 H Total Protein Albumin HDL Cholesterol Folate Ur Specific [place] Urine WBC (Auto) Crossmatch See Detail 12/29/18 12/29/18 12/29/18 03:00 05:02 08:34 WBC RBC Hgb Hct RDW Plt Count Lymph % (Auto) [place] % (Auto) Lymph # [place] # Seg Neutrophils % PT INR D-Dimer Heparin Anti-Xa Level POC ABG pH 7.225 L POC ABG pCO2 57.9 H POC ABG pO2 Sodium Potassium Chloride Carbon Dioxide BUN Creatinine Glucose POC Glucose Lactic Acid Calcium Iron TIBC Total Bilirubin AST ALT Lactate Dehydrogenase Total Creatine Kinase 344 H CK-MB (CK-2) 7.9 H CK-MB (CK-2) Rel Index Troponin T 0.103 H* D C-Reactive Protein NT-Pro-B Natriuret Pep Total Protein Albumin HDL Cholesterol 34 L Folate Ur Specific [place] 1.033 H Urine WBC (Auto) 31.0 H Crossmatch 12/29/18 12/29/18 12/29/18 08:34 08:53 12:51 WBC RBC Hgb Hct RDW Plt Count Lymph % (Auto) [place] % (Auto) Lymph # [place] # Seg Neutrophils % PT INR D-Dimer Heparin Anti-Xa Level POC ABG pH POC ABG pCO2 POC ABG pO2 Sodium Potassium 5.7 H D Chloride Carbon Dioxide BUN 21 H Creatinine Glucose 124 H POC Glucose 119 H Lactic Acid Calcium Iron TIBC Total Bilirubin AST ALT Lactate Dehydrogenase Total Creatine Kinase 837 H CK-MB (CK-2) 10.5 H CK-MB (CK-2) Rel Index Troponin T 0.084 H C-Reactive Protein NT-Pro-B Natriuret Pep Total Protein Albumin HDL Cholesterol Folate Ur Specific [place] Urine WBC (Auto) Crossmatch 12/29/18 12/29/18 12/29/18 12:51 12:51 15:02 WBC RBC Hgb Hct RDW 16.0 H Plt Count Lymph % (Auto) [place] % (Auto) 13.3 H Lymph # [place] # 1.4 H Seg Neutrophils % PT INR D-Dimer Heparin Anti-Xa Level POC ABG pH POC ABG pCO2 POC ABG pO2 Sodium Potassium 5.4 H Chloride Carbon Dioxide 19 L 17 L BUN 21 H 21 H Creatinine Glucose 116 H 115 H POC Glucose Lactic Acid Calcium Iron TIBC Total Bilirubin 1.50 H AST 43 H ALT Lactate Dehydrogenase 405 H Total Creatine Kinase CK-MB (CK-2) CK-MB (CK-2) Rel Index Troponin T C-Reactive Protein NT-Pro-B Natriuret Pep Total Protein 6.2 L D Albumin 3.1 L HDL Cholesterol Folate Ur Specific [place] Urine WBC (Auto) Crossmatch 12/29/18 12/29/18 12/29/18 15:03 16:46 16:46 WBC RBC Hgb Hct RDW Plt Count Lymph % (Auto) [place] % (Auto) Lymph # [place] # Seg Neutrophils % PT INR D-Dimer Heparin Anti-Xa Level POC ABG pH POC ABG pCO2 POC ABG pO2 Sodium Potassium Chloride Carbon Dioxide BUN Creatinine Glucose POC Glucose 121 H Lactic Acid 2.70 H* Calcium Iron TIBC Total Bilirubin AST ALT Lactate Dehydrogenase Total Creatine Kinase CK-MB (CK-2) CK-MB (CK-2) Rel Index Troponin T C-Reactive Protein 2.80 H NT-Pro-B Natriuret Pep Total Protein Albumin HDL Cholesterol Folate Ur Specific [place] Urine WBC (Auto) Crossmatch 12/29/18 12/29/18 12/29/18 16:50 17:37 19:37 WBC RBC Hgb Hct RDW Plt Count Lymph % (Auto) [place] % (Auto) Lymph # [place] # Seg Neutrophils % PT INR D-Dimer Heparin Anti-Xa Level POC ABG pH POC ABG pCO2 POC ABG pO2 248 H Sodium Potassium Chloride Carbon Dioxide 21 L BUN 21 H Creatinine Glucose 123 H POC Glucose 113 H Lactic Acid Calcium Iron TIBC Total Bilirubin AST ALT Lactate Dehydrogenase Total Creatine Kinase CK-MB (CK-2) CK-MB (CK-2) Rel Index Troponin T C-Reactive Protein NT-Pro-B Natriuret Pep Total Protein Albumin HDL Cholesterol Folate Ur Specific [place] Urine WBC (Auto) Crossmatch 12/29/18 12/29/18 12/30/18 20:10 21:36 04:43 WBC RBC Hgb Hct RDW Plt Count Lymph % (Auto) [place] % (Auto) Lymph # [place] # Seg Neutrophils % PT INR D-Dimer Heparin Anti-Xa Level POC ABG pH 7.327 L POC ABG pCO2 POC ABG pO2 79 L Sodium Potassium Chloride Carbon Dioxide BUN Creatinine Glucose POC Glucose Lactic Acid 2.70 H* 2.80 H* Calcium Iron TIBC Total Bilirubin AST ALT Lactate Dehydrogenase Total Creatine Kinase CK-MB (CK-2) CK-MB (CK-2) Rel Index Troponin T C-Reactive Protein NT-Pro-B Natriuret Pep Total Protein Albumin HDL Cholesterol Folate Ur Specific [place] Urine WBC (Auto) Crossmatch 12/30/18 12/30/18 12/30/18 11:42 11:42 13:43 WBC RBC Hgb Hct RDW 16.4 H Plt Count 125 L Lymph % (Auto) [place] % (Auto) Lymph # [place] # Seg Neutrophils % PT INR D-Dimer Heparin Anti-Xa Level POC ABG pH 7.225 L POC ABG pCO2 54.7 H POC ABG pO2 Sodium Potassium Chloride 108.8 H Carbon Dioxide BUN Creatinine Glucose 105 H POC Glucose Lactic Acid Calcium 8.2 L Iron TIBC Total Bilirubin AST ALT Lactate Dehydrogenase Total Creatine Kinase CK-MB (CK-2) CK-MB (CK-2) Rel Index Troponin T C-Reactive Protein NT-Pro-B Natriuret Pep Total Protein Albumin HDL Cholesterol Folate Ur Specific [place] Urine WBC (Auto) Crossmatch 12/30/18 12/30/18 12/30/18 13:53 18:17 18:17 WBC RBC Hgb Hct RDW Plt Count 114 L Lymph % (Auto) [place] % (Auto) Lymph # [place] # Seg Neutrophils % PT 16.5 H INR 1.25 H D-Dimer Heparin Anti-Xa Level POC ABG pH POC ABG pCO2 POC ABG pO2 Sodium Potassium Chloride Carbon Dioxide BUN Creatinine Glucose POC Glucose Lactic Acid Calcium Iron TIBC Total Bilirubin AST ALT Lactate Dehydrogenase Total Creatine Kinase CK-MB (CK-2) CK-MB (CK-2) Rel Index Troponin T 0.060 H D C-Reactive Protein NT-Pro-B Natriuret Pep Total Protein Albumin HDL Cholesterol Folate Ur Specific [place] Urine WBC (Auto) Crossmatch 12/31/18 12/31/18 12/31/18 00:31 04:39 05:30 WBC RBC Hgb 10.9 L Hct 32.4 L RDW 16.1 H Plt Count 97 L Lymph % (Auto) [place] % (Auto) Lymph # [place] # Seg Neutrophils % PT INR D-Dimer Heparin Anti-Xa Level 0.12 L POC ABG pH 7.337 L POC ABG pCO2 POC ABG pO2 Sodium Potassium Chloride Carbon Dioxide BUN Creatinine Glucose POC Glucose Lactic Acid Calcium Iron TIBC Total Bilirubin AST ALT Lactate Dehydrogenase Total Creatine Kinase CK-MB (CK-2) CK-MB (CK-2) Rel Index Troponin T C-Reactive Protein NT-Pro-B Natriuret Pep Total Protein Albumin HDL Cholesterol Folate Ur Specific [place] Urine WBC (Auto) Crossmatch 12/31/18 12/31/18 12/31/18 05:30 16:27 18:40 WBC RBC Hgb Hct RDW Plt Count Lymph % (Auto) [place] % (Auto) Lymph # [place] # Seg Neutrophils % PT INR D-Dimer Heparin Anti-Xa Level POC ABG pH 7.246 L POC ABG pCO2 52.6 H POC ABG pO2 Sodium Potassium Chloride 110.5 H Carbon Dioxide BUN Creatinine Glucose 107 H POC Glucose 109 H Lactic Acid Calcium 8.2 L Iron TIBC Total Bilirubin 1.30 H AST ALT Lactate Dehydrogenase Total Creatine Kinase CK-MB (CK-2) CK-MB (CK-2) Rel Index Troponin T C-Reactive Protein NT-Pro-B Natriuret Pep Total Protein 5.1 L Albumin 2.3 L HDL Cholesterol Folate Ur Specific [place] Urine WBC (Auto) Crossmatch 12/31/18 01/01/19 01/01/19 21:37 03:05 04:25 WBC RBC Hgb Hct RDW Plt Count Lymph % (Auto) [place] % (Auto) Lymph # [place] # Seg Neutrophils % PT INR D-Dimer Heparin Anti-Xa Level POC ABG pH 7.278 L POC ABG pCO2 50.6 H POC ABG pO2 111 H Sodium Potassium Chloride Carbon Dioxide BUN Creatinine Glucose POC Glucose 108 H 147 H Lactic Acid Calcium Iron TIBC Total Bilirubin AST ALT Lactate Dehydrogenase Total Creatine Kinase CK-MB (CK-2) CK-MB (CK-2) Rel Index Troponin T C-Reactive Protein NT-Pro-B Natriuret Pep Total Protein Albumin HDL Cholesterol Folate Ur Specific [place] Urine WBC (Auto) Crossmatch 01/01/19 01/01/19 01/01/19 04:42 04:42 06:32 WBC 3.9 L RBC 3.54 L Hgb 10.7 L Hct 31.6 L RDW 16.3 H Plt Count 83 L Lymph % (Auto) [place] % (Auto) Lymph # [place] # Seg Neutrophils % PT INR D-Dimer Heparin Anti-Xa Level POC ABG pH POC ABG pCO2 POC ABG pO2 Sodium Potassium Chloride 109.8 H Carbon Dioxide BUN Creatinine Glucose 134 H POC Glucose 143 H Lactic Acid Calcium 8.1 L Iron TIBC Total Bilirubin AST ALT Lactate Dehydrogenase Total Creatine Kinase CK-MB (CK-2) CK-MB (CK-2) Rel Index Troponin T C-Reactive Protein NT-Pro-B Natriuret Pep Total Protein 4.9 L Albumin 2.3 L HDL Cholesterol Folate Ur Specific [place] Urine WBC (Auto) Crossmatch 01/01/19 01/01/19 01/01/19 07:33 11:37 13:55 WBC RBC Hgb Hct RDW Plt Count Lymph % (Auto) [place] % (Auto) Lymph # [place] # Seg Neutrophils % PT INR D-Dimer Heparin Anti-Xa Level POC ABG pH 7.242 L POC ABG pCO2 55.3 H POC ABG pO2 Sodium Potassium Chloride Carbon Dioxide BUN Creatinine Glucose POC Glucose 137 H 133 H Lactic Acid Calcium Iron TIBC Total Bilirubin AST ALT Lactate Dehydrogenase Total Creatine Kinase CK-MB (CK-2) CK-MB (CK-2) Rel Index Troponin T C-Reactive Protein NT-Pro-B Natriuret Pep Total Protein Albumin HDL Cholesterol Folate Ur Specific [place] Urine WBC (Auto) Crossmatch 01/01/19 01/01/19 01/01/19 15:44 16:51 21:35 WBC RBC Hgb Hct RDW Plt Count Lymph % (Auto) [place] % (Auto) Lymph # [place] # Seg Neutrophils % PT INR D-Dimer Heparin Anti-Xa Level POC ABG pH 7.298 L POC ABG pCO2 50.6 H POC ABG pO2 Sodium Potassium Chloride Carbon Dioxide BUN Creatinine Glucose POC Glucose 139 H 106 H Lactic Acid Calcium Iron TIBC Total Bilirubin AST ALT Lactate Dehydrogenase Total Creatine Kinase CK-MB (CK-2) CK-MB (CK-2) Rel Index Troponin T C-Reactive Protein NT-Pro-B Natriuret Pep Total Protein Albumin HDL Cholesterol Folate Ur Specific [place] Urine WBC (Auto) Crossmatch 01/02/19 01/02/19 01/02/19 03:13 04:40 05:09 WBC 3.9 L RBC Hgb Hct RDW 16.1 H Plt Count 94 L Lymph % (Auto) 7.5 L [place] % (Auto) 14.2 H Lymph # 0.3 L [place] # Seg Neutrophils % 76.5 H PT INR D-Dimer Heparin Anti-Xa Level POC ABG pH 7.206 L POC ABG pCO2 65.8 H POC ABG pO2 62 L Sodium Potassium Chloride Carbon Dioxide BUN Creatinine Glucose POC Glucose 124 H Lactic Acid Calcium Iron TIBC Total Bilirubin AST ALT Lactate Dehydrogenase Total Creatine Kinase CK-MB (CK-2) CK-MB (CK-2) Rel Index Troponin T C-Reactive Protein NT-Pro-B Natriuret Pep Total Protein Albumin HDL Cholesterol Folate Ur Specific [place] Urine WBC (Auto) Crossmatch 01/02/19 01/02/19 01/02/19 05:09 05:09 05:32 WBC RBC Hgb Hct RDW Plt Count Lymph % (Auto) [place] % (Auto) Lymph # [place] # Seg Neutrophils % PT INR D-Dimer Heparin Anti-Xa Level POC ABG pH POC ABG pCO2 POC ABG pO2 Sodium Potassium Chloride 107.4 H Carbon Dioxide BUN Creatinine Glucose 133 H POC Glucose 130 H Lactic Acid Calcium 8.3 L Iron 34 L TIBC 231 L Total Bilirubin AST ALT Lactate Dehydrogenase Total Creatine Kinase CK-MB (CK-2) CK-MB (CK-2) Rel Index Troponin T C-Reactive Protein NT-Pro-B Natriuret Pep Total Protein Albumin HDL Cholesterol Folate 6.01 L Ur Specific [place] Urine WBC (Auto) Crossmatch 01/02/19 01/02/19 01/02/19 10:25 11:21 11:42 WBC RBC Hgb Hct RDW Plt Count Lymph % (Auto) [place] % (Auto) Lymph # [place] # Seg Neutrophils % PT INR D-Dimer Heparin Anti-Xa Level POC ABG pH 7.318 L POC ABG pCO2 56.7 H POC ABG pO2 215 H Sodium Potassium Chloride Carbon Dioxide BUN Creatinine Glucose POC Glucose 108 H 152 H Lactic Acid Calcium Iron TIBC Total Bilirubin AST ALT Lactate Dehydrogenase Total Creatine Kinase CK-MB (CK-2) CK-MB (CK-2) Rel Index Troponin T C-Reactive Protein NT-Pro-B Natriuret Pep Total Protein Albumin HDL Cholesterol Folate Ur Specific [place] Urine WBC (Auto) Crossmatch 01/02/19 01/03/19 01/03/19 17:37 04:28 10:57 WBC RBC Hgb 11.6 L Hct RDW Plt Count 105 L Lymph % (Auto) [place] % (Auto) Lymph # [place] # Seg Neutrophils % PT INR D-Dimer Heparin Anti-Xa Level POC ABG pH POC ABG pCO2 POC ABG pO2 Sodium Potassium Chloride Carbon Dioxide BUN Creatinine Glucose 111 H POC Glucose 107 H Lactic Acid Calcium Iron TIBC Total Bilirubin AST ALT Lactate Dehydrogenase Total Creatine Kinase CK-MB (CK-2) CK-MB (CK-2) Rel Index Troponin T C-Reactive Protein NT-Pro-B Natriuret Pep Total Protein Albumin HDL Cholesterol Folate Ur Specific [place] Urine WBC (Auto) Crossmatch 01/03/19 01/03/19 01/03/19 15:16 17:33 20:35 WBC RBC Hgb Hct RDW Plt Count Lymph % (Auto) [place] % (Auto) Lymph # [place] # Seg Neutrophils % PT INR D-Dimer Heparin Anti-Xa Level POC ABG pH POC ABG pCO2 POC ABG pO2 Sodium Potassium Chloride Carbon Dioxide BUN Creatinine Glucose POC Glucose 135 H 166 H 114 H Lactic Acid Calcium Iron TIBC Total Bilirubin AST ALT Lactate Dehydrogenase Total Creatine Kinase CK-MB (CK-2) CK-MB (CK-2) Rel Index Troponin T C-Reactive Protein NT-Pro-B Natriuret Pep Total Protein Albumin HDL Cholesterol Folate Ur Specific [place] Urine WBC (Auto) Crossmatch 01/04/19 01/04/19 01/04/19 01:32 04:47 04:47 WBC 4.2 L RBC Hgb 11.5 L Hct 34.9 L RDW 15.8 H Plt Count 119 L Lymph % (Auto) [place] % (Auto) Lymph # [place] # Seg Neutrophils % PT INR D-Dimer Heparin Anti-Xa Level POC ABG pH POC ABG pCO2 POC ABG pO2 Sodium Potassium 3.3 L Chloride Carbon Dioxide BUN Creatinine Glucose 110 H POC Glucose 114 H Lactic Acid Calcium 8.3 L Iron TIBC Total Bilirubin AST ALT Lactate Dehydrogenase Total Creatine Kinase CK-MB (CK-2) CK-MB (CK-2) Rel Index Troponin T C-Reactive Protein NT-Pro-B Natriuret Pep Total Protein Albumin HDL Cholesterol Folate Ur Specific [place] Urine WBC (Auto) Crossmatch 01/04/19 01/04/19 01/04/19 08:51 11:41 16:25 WBC RBC Hgb Hct RDW Plt Count Lymph % (Auto) [place] % (Auto) Lymph # [place] # Seg Neutrophils % PT INR D-Dimer Heparin Anti-Xa Level POC ABG pH POC ABG pCO2 POC ABG pO2 Sodium Potassium Chloride Carbon Dioxide BUN Creatinine Glucose POC Glucose 122 H 146 H 142 H Lactic Acid Calcium Iron TIBC Total Bilirubin AST ALT Lactate Dehydrogenase Total Creatine Kinase CK-MB (CK-2) CK-MB (CK-2) Rel Index Troponin T C-Reactive Protein NT-Pro-B Natriuret Pep Total Protein Albumin HDL Cholesterol Folate Ur Specific [place] Urine WBC (Auto) Crossmatch 01/04/19 01/05/19 01/05/19 21:16 04:41 04:41 WBC RBC Hgb Hct RDW 15.9 H Plt Count 126 L Lymph % (Auto) [place] % (Auto) Lymph # [place] # Seg Neutrophils % PT INR D-Dimer Heparin Anti-Xa Level POC ABG pH POC ABG pCO2 POC ABG pO2 Sodium Potassium 3.4 L Chloride Carbon Dioxide BUN Creatinine Glucose 128 H POC Glucose 140 H Lactic Acid Calcium Iron TIBC Total Bilirubin AST ALT Lactate Dehydrogenase Total Creatine Kinase CK-MB (CK-2) CK-MB (CK-2) Rel Index Troponin T C-Reactive Protein NT-Pro-B Natriuret Pep Total Protein Albumin HDL Cholesterol Folate Ur Specific [place] Urine WBC (Auto) Crossmatch 01/05/19 01/05/19 01/05/19 08:10 11:52 17:24 WBC RBC Hgb Hct RDW Plt Count Lymph % (Auto) [place] % (Auto) Lymph # [place] # Seg Neutrophils % PT INR D-Dimer Heparin Anti-Xa Level POC ABG pH POC ABG pCO2 POC ABG pO2 Sodium Potassium Chloride Carbon Dioxide BUN Creatinine Glucose POC Glucose 134 H 178 H 124 H Lactic Acid Calcium Iron TIBC Total Bilirubin AST ALT Lactate Dehydrogenase Total Creatine Kinase CK-MB (CK-2) CK-MB (CK-2) Rel Index Troponin T C-Reactive Protein NT-Pro-B Natriuret Pep Total Protein Albumin HDL Cholesterol Folate Ur Specific [place] Urine WBC (Auto) Crossmatch 01/05/19 01/06/19 01/06/19 21:36 03:12 03:12 WBC RBC Hgb Hct RDW 16.7 H Plt Count 138 L Lymph % (Auto) [place] % (Auto) Lymph # [place] # Seg Neutrophils % PT INR D-Dimer Heparin Anti-Xa Level POC ABG pH POC ABG pCO2 POC ABG pO2 Sodium Potassium 3.4 L Chloride Carbon Dioxide BUN Creatinine Glucose 112 H POC Glucose 119 H Lactic Acid Calcium Iron TIBC Total Bilirubin AST ALT Lactate Dehydrogenase Total Creatine Kinase CK-MB (CK-2) CK-MB (CK-2) Rel Index Troponin T C-Reactive Protein NT-Pro-B Natriuret Pep Total Protein Albumin HDL Cholesterol Folate Ur Specific [place] Urine WBC (Auto) Crossmatch 01/06/19 01/06/19 01/06/19 08:11 10:22 10:22 WBC RBC Hgb Hct RDW 16.7 H Plt Count Lymph % (Auto) [place] % (Auto) Lymph # [place] # Seg Neutrophils % PT INR D-Dimer Heparin Anti-Xa Level POC ABG pH POC ABG pCO2 POC ABG pO2 Sodium Potassium 3.5 L Chloride Carbon Dioxide BUN Creatinine Glucose 151 H POC Glucose 112 H Lactic Acid Calcium Iron TIBC Total Bilirubin AST ALT Lactate Dehydrogenase Total Creatine Kinase CK-MB (CK-2) CK-MB (CK-2) Rel Index Troponin T C-Reactive Protein NT-Pro-B Natriuret Pep Total Protein Albumin HDL Cholesterol Folate Ur Specific [place] Urine WBC (Auto) Crossmatch 01/06/19 01/06/19 01/06/19 11:51 17:04 17:57 WBC RBC Hgb Hct RDW Plt Count Lymph % (Auto) [place] % (Auto) Lymph # [place] # Seg Neutrophils % PT INR D-Dimer Heparin Anti-Xa Level POC ABG pH POC ABG pCO2 POC ABG pO2 Sodium Potassium Chloride Carbon Dioxide BUN Creatinine Glucose POC Glucose 148 H 135 H Lactic Acid Calcium Iron TIBC Total Bilirubin AST ALT Lactate Dehydrogenase Total Creatine Kinase CK-MB (CK-2) CK-MB (CK-2) Rel Index Troponin T C-Reactive Protein NT-Pro-B Natriuret Pep 4783 H Total Protein Albumin HDL Cholesterol Folate Ur Specific [place] Urine WBC (Auto) Crossmatch 01/06/19 01/07/19 01/07/19 20:59 08:35 10:34 WBC RBC Hgb Hct RDW Plt Count Lymph % (Auto) [place] % (Auto) Lymph # [place] # Seg Neutrophils % PT INR D-Dimer Heparin Anti-Xa Level POC ABG pH POC ABG pCO2 POC ABG pO2 Sodium Potassium Chloride Carbon Dioxide BUN Creatinine Glucose 129 H POC Glucose 115 H 143 H Lactic Acid Calcium Iron TIBC Total Bilirubin AST ALT Lactate Dehydrogenase Total Creatine Kinase CK-MB (CK-2) CK-MB (CK-2) Rel Index Troponin T C-Reactive Protein NT-Pro-B Natriuret Pep Total Protein Albumin HDL Cholesterol Folate Ur Specific [place] Urine WBC (Auto) Crossmatch 01/07/19 01/07/19 01/07/19 11:31 16:16 20:49 WBC RBC Hgb Hct RDW Plt Count Lymph % (Auto) [place] % (Auto) Lymph # [place] # Seg Neutrophils % PT INR D-Dimer Heparin Anti-Xa Level POC ABG pH POC ABG pCO2 POC ABG pO2 Sodium Potassium Chloride Carbon Dioxide BUN Creatinine Glucose POC Glucose 144 H 133 H 138 H Lactic Acid Calcium Iron TIBC Total Bilirubin AST ALT Lactate Dehydrogenase Total Creatine Kinase CK-MB (CK-2) CK-MB (CK-2) Rel Index Troponin T C-Reactive Protein NT-Pro-B Natriuret Pep Total Protein Albumin HDL Cholesterol Folate Ur Specific [place] Urine WBC (Auto) Crossmatch 01/08/19 01/08/19 01/08/19 00:19 05:11 05:11 WBC RBC Hgb Hct RDW 16.9 H Plt Count Lymph % (Auto) [place] % (Auto) Lymph # [place] # Seg Neutrophils % PT INR D-Dimer Heparin Anti-Xa Level POC ABG pH POC ABG pCO2 POC ABG pO2 Sodium Potassium Chloride Carbon Dioxide BUN Creatinine Glucose 144 H POC Glucose 129 H Lactic Acid Calcium Iron TIBC Total Bilirubin AST ALT Lactate Dehydrogenase Total Creatine Kinase CK-MB (CK-2) CK-MB (CK-2) Rel Index Troponin T C-Reactive Protein NT-Pro-B Natriuret Pep Total Protein Albumin HDL Cholesterol Folate Ur Specific [place] Urine WBC (Auto) Crossmatch 01/08/19 01/08/19 01/08/19 07:32 11:56 16:40 WBC RBC Hgb Hct RDW Plt Count Lymph % (Auto) [place] % (Auto) Lymph # [place] # Seg Neutrophils % PT INR D-Dimer Heparin Anti-Xa Level POC ABG pH POC ABG pCO2 POC ABG pO2 Sodium Potassium Chloride Carbon Dioxide BUN Creatinine Glucose POC Glucose 134 H 162 H 166 H Lactic Acid Calcium Iron TIBC Total Bilirubin AST ALT Lactate Dehydrogenase Total Creatine Kinase CK-MB (CK-2) CK-MB (CK-2) Rel Index Troponin T C-Reactive Protein NT-Pro-B Natriuret Pep Total Protein Albumin HDL Cholesterol Folate Ur Specific [place] Urine WBC (Auto) Crossmatch 01/08/19 01/09/19 01/09/19 21:36 08:42 11:41 WBC RBC Hgb Hct RDW Plt Count Lymph % (Auto) [place] % (Auto) Lymph # [place] # Seg Neutrophils % PT INR D-Dimer Heparin Anti-Xa Level POC ABG pH POC ABG pCO2 POC ABG pO2 Sodium Potassium Chloride Carbon Dioxide BUN Creatinine Glucose POC Glucose 166 H 114 H 136 H Lactic Acid Calcium Iron TIBC Total Bilirubin AST ALT Lactate Dehydrogenase Total Creatine Kinase CK-MB (CK-2) CK-MB (CK-2) Rel Index Troponin T C-Reactive Protein NT-Pro-B Natriuret Pep Total Protein Albumin HDL Cholesterol Folate Ur Specific [place] Urine WBC (Auto) Crossmatch 01/09/19 16:06 WBC RBC Hgb Hct RDW Plt Count Lymph % (Auto) [place] % (Auto) Lymph # [place] # Seg Neutrophils % PT INR D-Dimer Heparin Anti-Xa Level POC ABG pH POC ABG pCO2 POC ABG pO2 Sodium Potassium Chloride Carbon Dioxide BUN Creatinine Glucose POC Glucose 130 H Lactic Acid Calcium Iron TIBC Total Bilirubin AST ALT Lactate Dehydrogenase Total Creatine Kinase CK-MB (CK-2) CK-MB (CK-2) Rel Index Troponin T C-Reactive Protein NT-Pro-B Natriuret Pep Total Protein Albumin HDL Cholesterol Folate Ur Specific [place] Urine WBC (Auto) Crossmatch Allied health notes reviewed: nursing
[2019-01-10] MEDS: HALDOL IM PRN (01:14)
[2019-01-10] MEDS: DUONEB *Not for PRN Use IH SCH ×4 (01:38→20:03)
--- NOTE | 2019-01-10 06:34 | Hem/Onc Progress Note ---
Assessment and Plan 1. Deep venous thrombosis, left common femoral and right peroneal; bilateral leg swelling present. The patient was placed on heparin drip. Her platelets have slightly fallen down. 2. The patient's platelet count at admission was 99 and then 196, 125, and 114. I do not have any information about the patient's baseline platelet count. it is possible that the patient's baseline platelets are also low. 3. History of diabetes. 4. History of coronary artery disease. 5. Radiology showed right pleural effusion at one time. 6. History of seizure disorder as per the notes. 7. Myocardial infarction. 8. Status post coronary artery bypass graft. 9. Electrolyte imbalance. 10. History of cerebrovascular accident. 11. History of pneumonia. 12. h/o rt chest tube - h/o pl effusion 5/ plt >100 US abdo limited - does not mention liver and spleen size. 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 uses CPAP at home low folate - on replacement the plan is to start eliquis -after thoracentesis planned thoracentesis moved to 01/14 as pt was on plavix ? restart arixtra till then - will d/w dr Blankenship - Patient Problems (1) DVT (deep venous thrombosis) Current Visit: Yes Status: Acute (2) Thrombocytopenia Current Visit: Yes Status: Acute Subjective Date of service: 01/10/19 Principal diagnosis: dvt and low plt Interval history: thoracentesis changed to 01/14 as pt was on plavix Objective - Constitutional Vitals: Last Vital Signs Temp 99.2 F 01/10/19 04:00 Pulse 99 H 01/10/19 04:30 Resp 26 H 01/10/19 04:30 BP 118/47 01/10/19 04:30 Pulse Ox 95 01/10/19 04:30 Pain Intensity (0-10): denies any pain General appearance: no acute distress Performance status: 3-limited selfcare - EENT Eyes: EOM intact ENT: hearing intact Lymph node exam: negative cervical - Neck Neck: normal ROM - Respiratory Respiratory effort: Positive: normal Respiratory: bilateral: diminished - Cardiovascular Heart Sounds: Present: S1 & S2 Extremity abnormal: edema - Gastrointestinal General gastrointestinal: Present: soft, non-tender Rectal Exam: deferred - Genitourinary Male genitourinary: Present: deferred - Integumentary Integumentary: warm - Musculoskeletal Musculoskeletal: strength equal bilaterally, generalized weakness - Neurologic Neurologic: moves all extremities - Labs Lab Results: Laboratory Results - last 24 hr 01/09/19 01/09/19 01/09/19 08:42 11:41 16:06 POC Glucose 114 H 136 H 130 H 01/09/19 21:59 POC Glucose 159 H Medications & Allergies - Medications Allergies/Adverse Reactions: Allergies Penicillins Allergy (Verified 12/29/18 04:18) Unknown Home Medications: Home Medications Medication Instructions Recorded Confirmed Last Taken Type Aspirin 81 mg PO DAILY 12/30/18 12/30/18 12/30/18 History AtorvaSTATin 40 mg PO HS 12/30/18 12/30/18 12/28/18 History Clopidogrel Bisulfate [Clopidogrel] 75 mg PO DAILY 12/30/18 12/30/18 12/28/18 History Furosemide 40 mg PO DAILY 12/30/18 12/30/18 12/28/18 History Gabapentin [Neurontin] 300 mg PO HS 12/30/18 12/30/18 12/28/18 History Losartan [Cozaar] 50 mg .ROUTE DAILY 12/30/18 12/30/18 12/28/18 History Metformin ER (Nf) 500 gm .ROUTE BID 12/30/18 12/30/18 12/28/18 History Metoprolol 50 mg PO DAILY 12/30/18 12/30/18 12/28/18 History Potassium 10 meq PO DAILY 12/30/18 12/30/18 12/28/18 History Ropinirole HCl 1 mg PO DAILY 12/30/18 12/30/18 12/28/18 History Sertraline 25 mg PO DAILY 12/30/18 12/30/18 12/28/18 History Sertraline 75 mg PO DAILY 12/30/18 12/30/18 12/28/18 History Active Medications: Generic Name Dose Route Start Last Admin Trade Name Freq PRN Reason Stop Dose Admin Acetaminophen 650 mg 12/29/18 04:49 12/30/18 08:33 Tylenol [place] 650 mg Q4H PRN Administration Fever >101 Albuterol/Ipratropium 1 ampul 01/01/19 14:00 01/10/19 01:38 Duoneb *Not For Prn Use* IH 1 ampul Q6HRT [facility]END[facility] Administration Atorvastatin Calcium 40 mg 01/04/19 22:00 01/09/19 23:04 Lipitor PO 40 mg QHS [facility] Administration Dextrose 50 ml 12/29/18 04:47 D50w (25gm) Syringe IV PRN PRN Hypoglycemia Famotidine 20 mg 01/04/19 10:00 01/09/19 23:04 Pepcid PO 20 mg BID WENDY Administration Folic Acid 1 mg 01/06/19 12:00 01/09/19 10:30 Folvite PO Not Given QDAY [facility] Furosemide 20 mg 01/06/19 18:00 01/09/19 17:54 Lasix IV 20 mg 0600,1800 [facility]END[facility] Administration Haloperidol Lactate 5 mg 01/07/19 11:33 01/10/19 01:14 Haldol IM 5 mg Q6H PRN Administration Agitation Hydralazine HCl 10 mg 01/01/19 13:23 Apresoline IV Q4HR PRN SBP >/=170 Insulin Human Regular 0 units 01/04/19 11:30 01/09/19 17:52 Humulin R SUB-Q Not Given [facility] Protocol Levetiracetam 500 mg 01/04/19 10:00 01/09/19 23:04 Keppra PO 500 mg BID [facility] Administration Losartan Potassium 50 mg 01/04/19 11:00 01/09/19 10:30 Cozaar PO Not Given DAILY [facility] Metoprolol Tartrate 12.5 mg 01/03/19 11:00 01/09/19 23:10 Lopressor PO Not Given BID [facility] Ondansetron HCl 4 mg 12/29/18 04:49 Zofran IV Q8H PRN Nausea And Vomiting Quetiapine Fumarate 50 mg 01/08/19 22:00 01/09/19 23:04 Seroquel PO 50 mg QHS [facility] Administration Zolpidem Tartrate 5 mg 01/07/19 11:08 01/07/19 21:48 Ambien PO 5 mg QHS PRN Administration Sleep
[2019-01-10] MEDS: LASIX IV SCH ×2 (07:21→18:16)
[2019-01-10] MEDS: HumuLIN R SUB-Q SCH ×3 (08:00→16:45)
--- NOTE | 2019-01-10 09:08 | XRay Report ---
Single view chest: Compared to 01/06/19. History: Followup on pleural effusion. Findings: Cardiomegaly. Trachea is midline. No consolidation, bilateral pleural effusion. No significant interval change. Impression: Cardiomegaly. Bilateral pleural effusion.
[2019-01-10] MEDS: COZAAR PO SCH (09:41)
[2019-01-10] MEDS: FOLVITE PO SCH (09:41)
[2019-01-10] MEDS: LOPRESSOR PO SCH (09:42)
[2019-01-10] MEDS: KEPPRA PO SCH (09:42)
[2019-01-10] MEDS: PEPCID PO SCH (09:43)
[2019-01-10] MEDS ORDERED: PLAVIX PO SCH (10:00)
[2019-01-10] MEDS ORDERED: ELIQUIS PO SCH ×2 (10:00→22:00)
--- NOTE | 2019-01-10 10:33 | Progress Note ---
Assessment and Plan Cont present cardiac management. Pt pending thoracentesis - recommend resuming Eliquis and Plavix once thoracentesis is completed. Can consider ischemic evaluation once medically stabilized - this can be done as OP. Nothing further to add from cardiac perspective at this time. Will follow on as needed basis. The patient has been seen in conjunction with Dr. Harding who agrees with the assessment and plan of care. - Patient Problems (1) Acute respiratory failure Current Visit: Yes Status: Acute (2) CAD (coronary artery disease) Current Visit: Yes Status: Chronic Qualifiers: Coronary Disease-Associated Artery/Lesion type: [place] artery (3) Hx of CABG Current Visit: Yes Status: Chronic (4) Sepsis Current Visit: Yes Status: Suspected (5) Pneumonia Current Visit: Yes Status: Suspected (6) Pleural effusion Current Visit: Yes Status: Resolved (7) Non-STEMI (non-ST elevated myocardial infarction) Current Visit: Yes Status: Acute (8) HTN (hypertension) Current Visit: Yes Status: Chronic (9) Diabetes mellitus Current Visit: Yes Status: Chronic (10) History of CVA (cerebrovascular accident) Current Visit: Yes Status: Chronic (11) History of left-sided carotid endarterectomy Current Visit: Yes Status: Chronic (12) History of seizure Current Visit: Yes Status: Chronic (13) Anemia Current Visit: Yes Status: Acute Qualifiers: Anemia type: unspecified type Qualified Code(s): D64.9 - Anemia, unspecified (14) Thrombocytopenia Current Visit: Yes Status: Acute (15) DVT (deep venous thrombosis) Current Visit: Yes Status: Acute Subjective Date of service: 01/10/19 Principal diagnosis: dvt and low plt Interval history: pt resting in bed, on O2 via ventimask. Intermittently confused. no family at bedside. Objective Last Vital Signs Temp 98.5 F 01/10/19 08:00 Pulse 94 H 01/10/19 09:42 Resp 18 01/10/19 08:00 BP 123/54 01/10/19 09:42 Pulse Ox 97 01/10/19 08:00 - Physical Examination General: No Apparent Distress HEENT: Positive: EOMI, Normocephaly, Mucus Membranes Moist Neck: Positive: neck supple, trachea midline Cardiac: Positive: Reg Rate and Rhythm, S1/S2 Lungs: Positive: Decreased Breath Sounds Neuro: Positive: Grossly Intact Abdomen: Positive: Soft, Active Bowel Sounds. Negative: Tender Skin: Positive: Clear. Negative: Rash Musculoskeletal: Normal Range of Motion Extremities: Present: +1 Edema (bilateral leg edema) - Imaging and Cardiology EKG: image reviewed Echo: report reviewed (12/29/2018: EF 45-50%) - EKG Sinus rhythms and dysrhythmias: sinus rhythm Ventricular dysrhythmias: ventricular premature com AV and intraventricular conduction: 1 AV block, intraventricular conducti Repolarization changes or abnormalities: nonspecific abnormality, ST segment, and/or T wave - Allied health notes Allied health notes reviewed: nursing
[2019-01-10] MEDS ORDERED: NON-FORMULARY (Metoprolol 25 MG) PO SCH (11:30)
--- NOTE | 2019-01-10 11:36 | Progress Note ---
<DARLEEN ALEXANDER - Last Filed: 01/10/19 15:51> Assessment and Plan Assessment and plan: 73-year-old male, with morbid obesity, HTN, CAD, s/p IL, Seizure, admitted after spouse found him on the floor with agonal breathing 10 mins after he went to bed. EMS was called and transported to the hospital in. He was diagnosed with acute respiratory failure, intubated in the ED. Patient was extubated on 01/01, put on BIPAP . Currently patient is on Ventimask because he mouth breathes, desaturates, and pull of NC, when sleeping. He was diagnosed with sepsis due to pneumonia, completed Antibiotics. He is also diagnosed with DVT both legs, seen by Dr. Rivera, was put on Arixtra. He had thrombocytopenia, now resolved. He is being switched to Eliquis on 01/07 but will hold for thoracentesis due to right pleural effusion. He pulled out Peripheral iv line and Mid line overnight 01/03, and also pulled out right chest tube overnight 01/04. He has been confused, agitated on and off. Started on on Haldol prn , and Seroquel nightly. Acute Hypoxic Respiratory failure- s/p extubated 01/01 Seizure Disorder DVT bilateral lower extremity Sepsis Right sided Pneumonia Large Right sided Pleural effusion- s/p chest tube was placed, s/p removal by patient Shock syndrome questionable septic versus cardiogenic Hypokalemia Morbid Obesity Thrombocytopenia- resolved Non ST elevated IL type II Presumed ischemic cardiomyopathy status post CABG Toxic metabolic encephalopathy Severe Protein calorie malnutrition Hyponatremia Hypocalcemia History of CVA 2 years ago Plan: Previously intubated, extubated on 01/01 , placed on BIPAP nocturnally, placed on Venti mass 50% FiO2 when awake Off heparin drip. Restarted Arixtra for 2 doses (today and tomorrow) willhold on Sat and Sun for pending thoracentesis Plans to start Eliquis post rt thoracentesis which has been pushed back to Sunday 01/14 Resume Plavix after rt thoracentesis ID following Continue AED DVT/GI prophy SCD's holding AC d/t pending thoracentesis Therapeutic and diagnostic right thoracentesis-pending Cardiology has been consulted; recommendations appreciated Continues to be confused Continue Seroquel 50 mg nightly Continue Haldol when necessary History Interval history: She was seen today in the [facility]. He remains confused but periods of agitation has improved. At the time of my examination he is on Venti mask 50% FiO2, resting comfortably in bed. He is easily aroused. His is at the bedside and there are no complaints at this time. Hospitalist Physical - Physical exam Narrative exam: Present: no acute distress, obese - EENT Eyes: Present: PERRL, EOM intact ENT: hearing intact, clear oral mucosa - Neck Neck: Present: supple, normal ROM - Respiratory Respiratory effort: labored Respiratory: bilateral: diminished (poor air movement); On Ventimask 50% - Cardiovascular Heart rate: 94 (beats per minute) Rhythm: regular Heart Sounds: Present: S1 & S2. Absent: rub, click Details: - Extremities Extremities: pulses intact, pulses symmetrical, No edema Peripheral Pulses: within normal limits - Abdominal General gastrointestinal: soft, non-tender, normal bowel sounds, other (obese) - Integumentary Integumentary: Present: warm, dry - Psychiatric Psychiatric: cooperative - Neurologic Neurologic: CNII-XII intact, moves all extremities, other (periods of confusion and agitation) - Allied Health - Constitutional Vitals: Temp Pulse Resp BP Pulse Ox 98.5 F 94 H 18 123/54 97 01/10/19 08:00 01/10/19 09:42 01/10/19 08:00 01/10/19 09:42 01/10/19 08:00 General appearance: Present: no acute distress, obese Results - Labs CBC & Chem 7: 01/08/19 05:11 01/08/19 05:11 Labs: Laboratory Last Values WBC 6.2 K/mm3 (4.5-11.0) 01/08/19 05:11 RBC 4.46 M/mm3 (3.65-5.03) 01/08/19 05:11 Hgb 13.2 gm/dl (11.8-15.2) 01/08/19 05:11 Hct 39.9 % (35.5-45.6) 01/08/19 05:11 MCV 89 fl (84-94) 01/08/19 05:11 MCH 30 pg (28-32) 01/08/19 05:11 MCHC 33 % (32-34) 01/08/19 05:11 RDW 16.9 % (13.2-15.2) H 01/08/19 05:11 Plt Count 172 K/mm3 (140-440) 01/08/19 05:11 Lymph % (Auto) 7.5 % (13.4-35.0) L 01/02/19 05:09 Power % (Auto) 14.2 % (0.0-7.3) H 01/02/19 05:09 Eos % (Auto) 1.3 % (0.0-4.3) 01/02/19 05:09 Baso % (Auto) 0.5 % (0.0-1.8) 01/02/19 05:09 Lymph # 0.3 K/mm3 (1.2-5.4) L 01/02/19 05:09 Power # 0.6 K/mm3 (0.0-0.8) 01/02/19 05:09 Eos # 0.1 K/mm3 (0.0-0.4) 01/02/19 05:09 Baso # 0.0 K/mm3 (0.0-0.1) 01/02/19 05:09 Seg Neutrophils % 76.5 % (40.0-70.0) H 01/02/19 05:09 Seg Neutrophils # 3.0 K/mm3 (1.8-7.7) 01/02/19 05:09 PT 16.5 Sec. (12.2-14.9) H 12/30/18 18:17 INR 1.25 (0.87-1.13) H 12/30/18 18:17 APTT 33.1 Sec. (24.2-36.6) 12/30/18 18:17 D-Dimer 815.50 ng/mlDDU (0-234) H 12/28/18 23:58 Heparin Anti-Xa Level 0.70 U.I./ml (0.3-0.7) 01/02/19 05:09 Heparin Anti-Xa, Unfract Negative (Negative) 01/02/19 05:26 POC ABG pH 7.318 (7.35-7.45) L 01/02/19 11:21 POC ABG pCO2 56.7 (35-45) H 01/02/19 11:21 POC ABG pO2 215 (80-105) H 01/02/19 11:21 POC ABG HCO3 29.1 (22-26 mml/L) 01/02/19 11:21 POC ABG Total CO2 31 (23-27mmol/L) 01/02/19 11:21 POC ABG O2 Sat 100 01/02/19 11:21 POC ABG Base Excess 3 ((-2) - (+3)mmol/L) 01/02/19 11:21 FiO2 60 % 01/02/19 11:21 Sodium 144 mmol/L (137-145) 01/08/19 05:11 Potassium 4.3 mmol/L (3.6-5.0) 01/08/19 05:11 Chloride 103.5 mmol/L (98-107) 01/08/19 05:11 Carbon Dioxide 30 mmol/L (22-30) 01/08/19 05:11 Anion Gap 15 mmol/L 01/08/19 05:11 BUN 14 mg/dL (9-20) 01/08/19 05:11 Creatinine 1.0 mg/dL (0.8-1.5) 01/08/19 05:11 Estimated GFR > 60 ml/min 01/08/19 05:11 BUN/Creatinine Ratio 14 % 01/08/19 05:11 Glucose 144 mg/dL (75-100) H 01/08/19 05:11 POC Glucose 101 (70-105) 01/10/19 07:57 Lactic Acid 1.50 mmol/L (0.7-2.0) 12/30/18 11:42 Calcium 8.5 mg/dL (8.4-10.2) 01/08/19 05:11 Magnesium 1.90 mg/dL (1.7-2.3) 01/06/19 00:14 Iron 34 ug/dL (49-181) L 01/02/19 05:09 TIBC 231 mcg/dL (250-450) L 01/02/19 05:09 Ferritin 163.3 ng/mL (13.0-400.0) 01/02/19 05:09 Total Bilirubin 0.60 mg/dL (0.1-1.2) 01/01/19 04:42 AST 23 units/L (5-40) 01/01/19 04:42 ALT 10 units/L (7-56) 01/01/19 04:42 Alkaline Phosphatase 53 units/L (35-129) 01/01/19 04:42 Lactate Dehydrogenase 405 units/L (91-180) H 12/29/18 15:02 Total Creatine Kinase 837 units/L (55-170) H 12/29/18 12:51 CK-MB (CK-2) 10.5 ng/mL (0.0-4.0) H 12/29/18 12:51 CK-MB (CK-2) Rel Index 1.2 (0-4) 12/29/18 12:51 Troponin T 0.060 ng/mL (0.00-0.029) H D 12/30/18 13:53 C-Reactive Protein 2.80 mg/dL (0.00-1.30) H 12/29/18 16:46 NT-Pro-B Natriuret Pep 4783 pg/mL (0-900) H 01/06/19 17:04 Total Protein 4.9 g/dL (6.3-8.2) L 01/01/19 04:42 Albumin 2.3 g/dL (3.9-5) L 01/01/19 04:42 Albumin/Globulin Ratio 0.9 % 01/01/19 04:42 Triglycerides 113 mg/dL (2-149) 12/29/18 08:34 Cholesterol 120 mg/dL (50-199) 12/29/18 08:34 LDL Cholesterol Direct 82 mg/dL (50-130) 12/29/18 08:34 HDL Cholesterol 34 mg/dL (40-59) L 12/29/18 08:34 Cholesterol/HDL Ratio 3.52 % 12/29/18 08:34 Serotonin Release Assay See scanned result 01/02/19 05:26 Vitamin B12 365.3 pg/mL (211-911) 01/02/19 05:09 Folate 6.01 ng/mL (7.3-26.0) L 01/02/19 05:09 Urine Color Yolande (Yellow) 12/29/18 03:00 Urine Turbidity Cloudy (Clear) 12/29/18 03:00 Urine pH 5.0 (5.0-7.0) 12/29/18 03:00 Ur Specific Hamilton 1.033 (1.003-1.030) H 12/29/18 03:00 Urine Protein >500 mg/dL (Negative) 12/29/18 03:00 Urine Glucose (UA) 150 mg/dL (Negative) 12/29/18 03:00 Urine Ketones Neg mg/dL (Negative) 12/29/18 03:00 Urine Blood Mod (Negative) 12/29/18 03:00 Urine Nitrite Neg (Negative) 12/29/18 03:00 Urine Bilirubin Neg (Negative) 12/29/18 03:00 Urine Urobilinogen < 2.0 mg/dL (<2.0) 12/29/18 03:00 Ur Leukocyte Esterase Neg (Negative) 12/29/18 03:00 Urine WBC (Auto) 31.0 /HPF (0.0-6.0) H 12/29/18 03:00 Urine RBC (Auto) 27.0 /HPF (0.0-6.0) 12/29/18 03:00 U Epithel Cells (Auto) 4.0 /HPF (0-13.0) 12/29/18 03:00 Urine Bacteria (Auto) 4+ /HPF (Negative) 12/29/18 03:00 Urine Mucus 3+ /HPF 12/29/18 03:00 Urine Opiates Screen Presumptive negative 12/29/18 03:00 Urine Methadone Screen Presumptive negative 12/29/18 03:00 Ur Barbiturates Screen Presumptive negative 12/29/18 03:00 Ur Phencyclidine Scrn Presumptive negative 12/29/18 03:00 Ur Amphetamines Screen Presumptive negative 12/29/18 03:00 U Benzodiazepines Scrn Presumptive negative 12/29/18 03:00 Urine Cocaine Screen Presumptive negative 12/29/18 03:00 U Marijuana (THC) Screen Presumptive negative 12/29/18 03:00 Drugs of Abuse Note Disclamer 12/29/18 03:00 Heparin-induced Plt Ab Negative (Negative) 01/02/19 05:26 UF Heparin High Dose 0 % Release 01/02/19 05:26 THOMAS UFH Low Dose 0.1 0 % Release 01/02/19 05:26 THOMAS UFH Low Dose 0.5 0 % Release 01/02/19 05:26 Urine Legionella Ag Not detected (Not Detected) 12/31/18 05:30 Blood Type O POSITIVE 12/29/18 01:53 Antibody Screen Negative 12/29/18 01:53 Crossmatch See Detail 12/29/18 01:53 Active Medications - Current Medications Current Medications: Generic Name Dose Route Start Last Admin Trade Name Freq PRN Reason Stop Dose Admin Acetaminophen 650 mg 12/29/18 04:49 12/30/18 08:33 Tylenol [place] 650 mg Q4H PRN Administration Fever >101 Albuterol/Ipratropium 1 ampul 01/01/19 14:00 01/10/19 07:41 Duoneb *Not For Prn Use* IH 1 ampul Q6HRT WENDY Administration Atorvastatin Calcium 40 mg 01/04/19 22:00 01/09/19 23:04 Lipitor PO 40 mg QHS WENDY Administration Dextrose 50 ml 12/29/18 04:47 D50w (25gm) Syringe IV PRN PRN Hypoglycemia Famotidine 20 mg 01/04/19 10:00 01/10/19 09:43 Pepcid PO 20 mg BID WENDY Administration Folic Acid 1 mg 01/06/19 12:00 01/10/19 09:41 Folvite PO 1 mg QDAY WENDY Administration Fondaparinux 10 mg 01/10/19 12:00 Arixtra SUB-Q 01/11/19 10:01 QDAY WENDY Furosemide 20 mg 01/06/19 18:00 01/10/19 07:21 Lasix IV 20 mg 0600,1800 WENDY Administration Furosemide 40 mg 01/10/19 12:00 Lasix IV Q12H WENDY Gabapentin 300 mg 01/10/19 22:00 Neurontin PO HS WENDY Haloperidol Lactate 5 mg 01/07/19 11:33 01/10/19 01:14 Haldol IM 5 mg Q6H PRN Administration Agitation Hydralazine HCl 10 mg 01/01/19 13:23 Apresoline IV Q4HR PRN SBP >/=170 Insulin Human Regular 0 units 01/04/19 11:30 01/10/19 08:00 Humulin R SUB-Q Not Given ACHS WENDY Protocol Levetiracetam 500 mg 01/04/19 10:00 01/10/19 09:42 Keppra PO 500 mg BID WENDY Administration Losartan Potassium 50 mg 01/04/19 11:00 01/10/19 09:41 Cozaar PO 50 mg DAILY WENDY Administration Metoprolol Tartrate 12.5 mg 01/03/19 11:00 01/10/19 09:42 Lopressor PO 12.5 mg BID WENDY Administration Miscellaneous Medication 40 mg 01/10/19 22:00 Atorvastatin PO HS WENDY Miscellaneous Medication 75 mg 01/11/19 10:00 Sertraline PO DAILY WENDY Miscellaneous Medication 25 mg 01/11/19 10:00 Sertraline PO DAILY WENDY Miscellaneous Medication 500 gm 01/10/19 22:00 Metformin Er (Nf) .ROUTE BID WENDY Miscellaneous Medication 25 mg 01/10/19 11:30 Metoprolol PO DAILY WENDY Ondansetron HCl 4 mg 12/29/18 04:49 Zofran IV Q8H PRN Nausea And Vomiting Quetiapine Fumarate 50 mg 01/08/19 22:00 01/09/19 23:04 Seroquel PO 50 mg QHS WENDY Administration Ropinirole HCl 1 mg 01/11/19 10:00 Requip PO DAILY WENDY Zolpidem Tartrate 5 mg 01/07/19 11:08 01/07/19 21:48 Ambien PO 5 mg QHS PRN Administration Sleep Nutrition/Malnutrition Assess - Dietary Evaluation Nutrition/Malnutrition Findings: Nutrition Notes Start: 12/31/18 14:59 Freq: Status: Active Protocol: Document 01/07/19 12:07 LIZ (Rec: 01/07/19 12:13 [facility]- [email or web address]) Nutrition Notes Initial or Follow up Reassessment Current Diagnosis Coronary Artery Disease, Diabetes,Hypertension, Respiratory Failure Other Pertinent Diagnosis (R) lung effusion, (R) pneu Current Diet Cardiac/consistent carbohydrate + Glucerna daily Labs/Tests Reviewed Pertinent Medications Reviewed Height 5 ft 7 in Weight 131.19 kg Thornton Body Weight (kg) 67.27 BMI 45.3 Weight change and time frame Current wt obtained from bed scale Subjective/Other Information Pt reports poor appetite, but does drink the Glucerna. Pt family member states that he ate "a little bit" yesterday. Burn Absent Trauma Absent #1 Nutrition Diagnosis Inadequate oral intake Diagnosis Progress(for reassessment Continues documentation) Is patient on ventilator? No Is Patient Ambulatory and/or Out of Bed No REE-([facility]-confined to bed) 2412.252 Kcal/Kg value to use for calculation 14 Approximate Energy Requirements Using 1837 kcal/Kg Additional Notes Pro needs 1-1.2g/kg adjBW: 99- 119g/day Fluid needs 1ml/kcal Nutrition Intervention Change Diet Order: Continue current diet order Add Supplement/Snack (indicate name/kcal Glucerna Hanahan BID /protein ) Provides kCal: 440 Provides Protein (gm) 20 Goal #1 PO intake of meals plus ONS to meet at least 75% of energy and pro needs Follow-Up By: 01/11/19 Additional Comments F/U: intakes <FOX HERNANDEZ M - Last Filed: 01/12/19 20:19> Assessment and Plan Assessment and plan: I saw and evaluated the patient. I agree with the findings and the plan of care as documented in the Nurse Practitioner's~note, with the following corrections and additions. -awaiting thoracentesis on monday History Interval history: correction; patient is a He He was not agitated today, he has dementia, but has been less confused Hospitalist Physical - Constitutional Vitals: Temp Pulse Resp BP Pulse Ox 97.3 F L 78 20 91/47 95 01/12/19 19:41 01/12/19 19:41 01/12/19 19:41 01/12/19 19:41 01/12/19 19:41 Results - Labs CBC & Chem 7: 01/11/19 04:09 01/11/19 04:09 Labs: Laboratory Last Values WBC 4.4 K/mm3 (4.5-11.0) L 01/11/19 04:09 RBC 4.32 M/mm3 (3.65-5.03) 01/11/19 04:09 Hgb 12.6 gm/dl (11.8-15.2) 01/11/19 04:09 Hct 38.6 % (35.5-45.6) 01/11/19 04:09 MCV 89 fl (84-94) 01/11/19 04:09 MCH 29 pg (28-32) 01/11/19 04:09 MCHC 33 % (32-34) 01/11/19 04:09 RDW 16.5 % (13.2-15.2) H 01/11/19 04:09 Plt Count 131 K/mm3 (140-440) L 01/11/19 04:09 Lymph % (Auto) 15.0 % (13.4-35.0) 01/11/19 04:09 Power % (Auto) 11.8 % (0.0-7.3) H 01/11/19 04:09 Eos % (Auto) 2.9 % (0.0-4.3) 01/11/19 04:09 Baso % (Auto) 0.4 % (0.0-1.8) 01/11/19 04:09 Lymph # 0.7 K/mm3 (1.2-5.4) L 01/11/19 04:09 Power # 0.5 K/mm3 (0.0-0.8) 01/11/19 04:09 Eos # 0.1 K/mm3 (0.0-0.4) 01/11/19 04:09 Baso # 0.0 K/mm3 (0.0-0.1) 01/11/19 04:09 Seg Neutrophils % 69.9 % (40.0-70.0) 01/11/19 04:09 Seg Neutrophils # 3.0 K/mm3 (1.8-7.7) 01/11/19 04:09 PT 16.5 Sec. (12.2-14.9) H 12/30/18 18:17 INR 1.25 (0.87-1.13) H 12/30/18 18:17 APTT 33.1 Sec. (24.2-36.6) 12/30/18 18:17 D-Dimer 815.50 ng/mlDDU (0-234) H 12/28/18 23:58 Heparin Anti-Xa Level 0.70 U.I./ml (0.3-0.7) 01/02/19 05:09 Heparin Anti-Xa, Unfract Negative (Negative) 01/02/19 05:26 POC ABG pH 7.318 (7.35-7.45) L 01/02/19 11:21 POC ABG pCO2 56.7 (35-45) H 01/02/19 11:21 POC ABG pO2 215 (80-105) H 01/02/19 11:21 POC ABG HCO3 29.1 (22-26 mml/L) 01/02/19 11:21 POC ABG Total CO2 31 (23-27mmol/L) 01/02/19 11:21 POC ABG O2 Sat 100 01/02/19 11:21 POC ABG Base Excess 3 ((-2) - (+3)mmol/L) 01/02/19 11:21 FiO2 60 % 01/02/19 11:21 Sodium 146 mmol/L (137-145) H 01/11/19 04:09 Potassium 3.4 mmol/L (3.6-5.0) L D 01/11/19 04:09 Chloride 96.9 mmol/L (98-107) L 01/11/19 04:09 Carbon Dioxide 40 mmol/L (22-30) H D 01/11/19 04:09 Anion Gap 13 mmol/L 01/11/19 04:09 BUN 11 mg/dL (9-20) 01/11/19 04:09 Creatinine 0.7 mg/dL (0.8-1.5) L 01/11/19 04:09 Estimated GFR > 60 ml/min 01/11/19 04:09 BUN/Creatinine Ratio 16 % 01/11/19 04:09 Glucose 110 mg/dL (75-100) H 01/11/19 04:09 POC Glucose 168 (70-105) H 01/12/19 16:33 Lactic Acid 1.50 mmol/L (0.7-2.0) 12/30/18 11:42 Calcium 8.9 mg/dL (8.4-10.2) 01/11/19 04:09 Phosphorus 2.30 mg/dL (2.5-4.5) L 01/11/19 04:09 Magnesium 2.00 mg/dL (1.7-2.3) 01/11/19 04:09 Iron 34 ug/dL (49-181) L 01/02/19 05:09 TIBC 231 mcg/dL (250-450) L 01/02/19 05:09 Ferritin 163.3 ng/mL (13.0-400.0) 01/02/19 05:09 Total Bilirubin 0.70 mg/dL (0.1-1.2) 01/11/19 04:09 AST 17 units/L (5-40) 01/11/19 04:09 ALT 11 units/L (7-56) 01/11/19 04:09 Alkaline Phosphatase 51 units/L (35-129) 01/11/19 04:09 Lactate Dehydrogenase 405 units/L (91-180) H 12/29/18 15:02 Total Creatine Kinase 837 units/L (55-170) H 12/29/18 12:51 CK-MB (CK-2) 10.5 ng/mL (0.0-4.0) H 12/29/18 12:51 CK-MB (CK-2) Rel Index 1.2 (0-4) 12/29/18 12:51 Troponin T 0.060 ng/mL (0.00-0.029) H D 12/30/18 13:53 C-Reactive Protein 2.80 mg/dL (0.00-1.30) H 12/29/18 16:46 NT-Pro-B Natriuret Pep 4783 pg/mL (0-900) H 01/06/19 17:04 Total Protein 5.4 g/dL (6.3-8.2) L 01/11/19 04:09 Albumin 2.6 g/dL (3.9-5) L 01/11/19 04:09 Albumin/Globulin Ratio 0.9 % 01/11/19 04:09 Triglycerides 113 mg/dL (2-149) 12/29/18 08:34 Cholesterol 120 mg/dL (50-199) 12/29/18 08:34 LDL Cholesterol Direct 82 mg/dL (50-130) 12/29/18 08:34 HDL Cholesterol 34 mg/dL (40-59) L 12/29/18 08:34 Cholesterol/HDL Ratio 3.52 % 12/29/18 08:34 Serotonin Release Assay See scanned result 01/02/19 05:26 Vitamin B12 365.3 pg/mL (211-911) 01/02/19 05:09 Folate 6.01 ng/mL (7.3-26.0) L 01/02/19 05:09 Urine Color Yolande (Yellow) 12/29/18 03:00 Urine Turbidity Cloudy (Clear) 12/29/18 03:00 Urine pH 5.0 (5.0-7.0) 12/29/18 03:00 Ur Specific Hamilton 1.033 (1.003-1.030) H 12/29/18 03:00 Urine Protein >500 mg/dL (Negative) 12/29/18 03:00 Urine Glucose (UA) 150 mg/dL (Negative) 12/29/18 03:00 Urine Ketones Neg mg/dL (Negative) 12/29/18 03:00 Urine Blood Mod (Negative) 12/29/18 03:00 Urine Nitrite Neg (Negative) 12/29/18 03:00 Urine Bilirubin Neg (Negative) 12/29/18 03:00 Urine Urobilinogen < 2.0 mg/dL (<2.0) 12/29/18 03:00 Ur Leukocyte Esterase Neg (Negative) 12/29/18 03:00 Urine WBC (Auto) 31.0 /HPF (0.0-6.0) H 12/29/18 03:00 Urine RBC (Auto) 27.0 /HPF (0.0-6.0) 12/29/18 03:00 U Epithel Cells (Auto) 4.0 /HPF (0-13.0) 12/29/18 03:00 Urine Bacteria (Auto) 4+ /HPF (Negative) 12/29/18 03:00 Urine Mucus 3+ /HPF 12/29/18 03:00 Urine Opiates Screen Presumptive negative 12/29/18 03:00 Urine Methadone Screen Presumptive negative 12/29/18 03:00 Ur Barbiturates Screen Presumptive negative 12/29/18 03:00 Ur Phencyclidine Scrn Presumptive negative 12/29/18 03:00 Ur Amphetamines Screen Presumptive negative 12/29/18 03:00 U Benzodiazepines Scrn Presumptive negative 12/29/18 03:00 Urine Cocaine Screen Presumptive negative 12/29/18 03:00 U Marijuana (THC) Screen Presumptive negative 12/29/18 03:00 Drugs of Abuse Note Disclamer 12/29/18 03:00 Heparin-induced Plt Ab Negative (Negative) 01/02/19 05:26 UF Heparin High Dose 0 % Release 01/02/19 05:26 THOMAS UFH Low Dose 0.1 0 % Release 01/02/19 05:26 THOMAS UFH Low Dose 0.5 0 % Release 01/02/19 05:26 Urine Legionella Ag Not detected (Not Detected) 12/31/18 05:30 Blood Type O POSITIVE 12/29/18 01:53 Antibody Screen Negative 12/29/18 01:53 Crossmatch See Detail 12/29/18 01:53 Active Medications - Current Medications Current Medications: Generic Name Dose Route Start Last Admin Trade Name Freq PRN Reason Stop Dose Admin Acetaminophen 650 mg 12/29/18 04:49 12/30/18 08:33 Tylenol TX 650 mg Q4H PRN Administration Fever >101 Albuterol/Ipratropium 1 ampul 01/01/19 14:00 01/12/19 13:52 Duoneb *Not For Prn Use* IH 1 ampul Q6HRT WENDY Administration Atorvastatin Calcium 40 mg 01/04/19 22:00 01/11/19 21:55 Lipitor PO 40 mg QHS WENDY Administration Dextrose 50 ml 12/29/18 04:47 D50w (25gm) Syringe IV PRN PRN Hypoglycemia Famotidine 20 mg 01/04/19 10:00 01/12/19 09:56 Pepcid PO 20 mg BID WENDY Administration Folic Acid 1 mg 01/06/19 12:00 01/12/19 09:56 Folvite PO 1 mg QDAY WENDY Administration Furosemide 40 mg 01/11/19 10:00 01/12/19 09:57 Lasix IV 40 mg 1000 WENDY Administration Gabapentin 300 mg 01/10/19 22:00 01/11/19 21:56 Neurontin PO 300 mg HS WENDY Administration Haloperidol Lactate 5 mg 01/07/19 11:33 01/12/19 02:21 Haldol IM 5 mg Q6H PRN Administration Agitation Hydralazine HCl 10 mg 01/01/19 13:23 Apresoline IV Q4HR PRN SBP >/=170 Insulin Human Regular 0 units 01/04/19 11:30 01/12/19 17:28 Humulin R SUB-Q 1 units ACHS WENDY Administration Protocol Levetiracetam 500 mg 01/04/19 10:00 01/12/19 09:57 Keppra PO 500 mg BID WENDY Administration Losartan Potassium 50 mg 01/04/19 11:00 01/12/19 09:55 Cozaar PO 50 mg DAILY WENDY Administration Metformin HCl 500 mg 01/10/19 17:00 01/12/19 17:29 Glucophage Xr PO 500 mg BIDDIAB WENDY Administration Metoprolol Tartrate 12.5 mg 01/03/19 11:00 01/12/19 09:56 Lopressor PO 12.5 mg BID WENDY Administration Ondansetron HCl 4 mg 12/29/18 04:49 Zofran IV Q8H PRN Nausea And Vomiting Quetiapine Fumarate 50 mg 01/08/19 22:00 01/11/19 21:56 Seroquel PO 50 mg QHS WENDY Administration Ropinirole HCl 1 mg 01/11/19 10:00 01/12/19 09:55 Requip PO 1 mg DAILY WENDY Administration Sertraline HCl 100 mg 01/11/19 10:00 01/12/19 09:55 Zoloft PO 100 mg QDAY WENDY Administration Nutrition/Malnutrition Assess - Dietary Evaluation Nutrition/Malnutrition Findings: Nutrition Notes Start: 12/31/18 14:59 Freq: Status: Active Protocol: Document 01/12/19 11:17 [facility] (Rec: 01/12/19 11:22 [facility]- [email or web address]) Nutrition Notes Initial or Follow up Reassessment Current Diagnosis Coronary Artery Disease, Diabetes,Hypertension, Respiratory Failure Other Pertinent Diagnosis (R) lung effusion, (R) pneu Current Diet Cardiac/consistent carbohydrate + Glucerna BID Labs/Tests Reviewed Pertinent Medications Reviewed Height 5 ft 7 in Weight 126.5 kg [place] Body Weight (kg) 67.27 BMI 43.7 Subjective/Other Information Pt consuming 19% of meals. He is confused and agitated at times. Burn Absent Trauma Absent #1 Nutrition Diagnosis Inadequate oral intake Diagnosis Progress(for reassessment Continues documentation) Is patient on ventilator? No Is Patient Ambulatory and/or Out of Bed No REE-([facility]-confined to bed) 2356.032 Kcal/Kg value to use for calculation 14 Approximate Energy Requirements Using 1771 kcal/Kg Additional Notes Pro needs 1-1.2g/kg adjBW: 97- 116g/day Fluid needs 1ml/kcal Nutrition Intervention Change Diet Order: Continue current diet order Add Supplement/Snack (indicate name/kcal Glucerna [place] BID /protein ) Provides kCal: 440 Provides Protein (gm) 20 Goal #1 PO intake of meals plus ONS to meet at least 75% of energy and pro needs Follow-Up By: 01/15/19 Additional Comments F/U: intakes (meals/ONS), wt
[2019-01-10] MEDS ORDERED: ARIXTRA SUB-Q SCH (12:00)
[2019-01-10] MEDS: ARIXTRA SUB-Q SCH ×2 (14:43)
[2019-01-10] MEDS: GLUCOPHAGE XR PO SCH (18:17)
[2019-01-10] MEDS ORDERED: METFORMIN SCH (22:00)
[2019-01-10] MEDS ORDERED: NON-FORMULARY (Atorvastatin 40 MG) PO SCH (22:00)
[2019-01-11] MEDS: PEPCID PO SCH ×3 (00:12→21:56)
[2019-01-11] MEDS: KEPPRA PO SCH ×3 (00:12→21:55)
[2019-01-11] MEDS: NEURONTIN PO SCH ×2 (00:12→21:56)
[2019-01-11] MEDS: LOPRESSOR PO SCH ×4 (00:12→22:08)
[2019-01-11 04:40] LABS: Basophils % (Auto) 0.4 % (0.0-1.8); Eosinophils # (Auto) 0.1 K/mm3 (0.0-0.4); Eosinophils % (Auto) 2.9 % (0.0-4.3); Hematocrit 38.6 % (35.5-45.6); Hemoglobin 12.6 gm/dl (11.8-15.2); Lymphocytes # (Auto) 0.7 K/mm3 (1.2-5.4); Mean Corpuscular HGB Conc 33 % (32-34); Mean Corpuscular Volume 89 fl (84-94); Monocytes # (Auto) 0.5 K/mm3 (0.0-0.8); Monocytes % (Auto) 11.8 % (0.0-7.3); Platelet Count 131 K/mm3 (140-440); Red Blood Count 4.32 M/mm3 (3.65-5.03); Red Cell Distribution Width 16.5 % (13.2-15.2)
[2019-01-11 05:05] LABS: Alanine Aminotransferase 11 units/L (7-56); Albumin 2.6 g/dL (3.9-5); BUN/Creatinine Ratio 16; Blood Urea Nitrogen 11 mg/dL (9-20); Calcium 8.9 mg/dL (8.4-10.2); Hemolysis Index 8
[2019-01-11] MEDS: DUONEB *Not for PRN Use IH SCH ×4 (06:25→19:27)
[2019-01-11] MEDS: LASIX IV SCH ×2 (06:53→13:05)
[2019-01-11] MEDS: HumuLIN R SUB-Q SCH ×5 (07:12→23:40)
--- NOTE | 2019-01-11 07:42 | Hem/Onc Progress Note ---
Assessment and Plan 1. Deep venous thrombosis, left common femoral and right peroneal; bilateral leg swelling present. The patient was placed on heparin drip. Her platelets have slightly fallen down. 2. The patient's platelet count at admission was 99 and then 196, 125, and 114. I do not have any information about the patient's baseline platelet count. it is possible that the patient's baseline platelets are also low. 3. History of diabetes. 4. History of coronary artery disease. 5. Radiology showed right pleural effusion at one time. 6. History of seizure disorder as per the notes. 7. Myocardial infarction. 8. Status post coronary artery bypass graft. 9. Electrolyte imbalance. 10. History of cerebrovascular accident. 11. History of pneumonia. 12. h/o rt chest tube - h/o pl effusion 01/11 plt >100 US abdo limited - does not mention liver and spleen size. 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 uses CPAP at home low folate - on replacement the plan is to start eliquis -after thoracentesis planned thoracentesis moved to 01/14 as pt was on plavix - Patient Problems (1) DVT (deep venous thrombosis) Current Visit: Yes Status: Acute (2) Thrombocytopenia Current Visit: Yes Status: Acute Subjective Date of service: 01/11/19 Principal diagnosis: dvt Interval history: due thoracentesis Objective - Constitutional Vitals: Last Vital Signs Temp 97.5 F L 01/11/19 05:00 Pulse 90 01/11/19 06:00 Resp 17 01/11/19 06:00 BP 125/80 01/11/19 06:00 Pulse Ox 84 01/11/19 06:00 - Labs Lab Results: Laboratory Results - last 24 hr 01/10/19 01/10/19 01/10/19 07:57 11:46 16:45 WBC RBC Hgb Hct MCV MCH MCHC RDW Plt Count Lymph % (Auto) [place] % (Auto) Eos % (Auto) Baso % (Auto) Lymph # [place] # Eos # Baso # Seg Neutrophils % Seg Neutrophils # Sodium Potassium Chloride Carbon Dioxide Anion Gap BUN Creatinine Estimated GFR BUN/Creatinine Ratio Glucose POC Glucose 101 126 H 136 H Calcium Phosphorus Magnesium Total Bilirubin AST ALT Alkaline Phosphatase Total Protein Albumin Albumin/Globulin Ratio 01/10/19 01/11/19 01/11/19 22:41 04:09 04:09 WBC 4.4 L RBC 4.32 Hgb 12.6 Hct 38.6 MCV 89 MCH 29 MCHC 33 RDW 16.5 H Plt Count 131 L Lymph % (Auto) 15.0 [place] % (Auto) 11.8 H Eos % (Auto) 2.9 Baso % (Auto) 0.4 Lymph # 0.7 L [place] # 0.5 Eos # 0.1 Baso # 0.0 Seg Neutrophils % 69.9 Seg Neutrophils # 3.0 Sodium 146 H Potassium 3.4 L D Chloride 96.9 L Carbon Dioxide 40 H D Anion Gap 13 BUN 11 Creatinine 0.7 L Estimated GFR > 60 BUN/Creatinine Ratio 16 Glucose 110 H POC Glucose 132 H Calcium 8.9 Phosphorus 2.30 L Magnesium 2.00 Total Bilirubin 0.70 AST 17 ALT 11 Alkaline Phosphatase 51 Total Protein 5.4 L Albumin 2.6 L Albumin/Globulin Ratio 0.9 01/11/19 07:31 WBC RBC Hgb Hct MCV MCH MCHC RDW Plt Count Lymph % (Auto) [place] % (Auto) Eos % (Auto) Baso % (Auto) Lymph # [place] # Eos # Baso # Seg Neutrophils % Seg Neutrophils # Sodium Potassium Chloride Carbon Dioxide Anion Gap BUN Creatinine Estimated GFR BUN/Creatinine Ratio Glucose POC Glucose 116 H Calcium Phosphorus Magnesium Total Bilirubin AST ALT Alkaline Phosphatase Total Protein Albumin Albumin/Globulin Ratio Medications & Allergies - Medications Allergies/Adverse Reactions: Allergies Penicillins Allergy (Verified 12/29/18 04:18) Unknown Home Medications: Home Medications Medication Instructions Recorded Confirmed Last Taken Type Aspirin 81 mg PO DAILY 12/30/18 12/30/18 12/30/18 History AtorvaSTATin 40 mg PO HS 12/30/18 12/30/18 12/28/18 History Clopidogrel Bisulfate [Clopidogrel] 75 mg PO DAILY 12/30/18 12/30/18 12/28/18 History Furosemide 40 mg PO DAILY 12/30/18 12/30/18 12/28/18 History Gabapentin [Neurontin] 300 mg PO HS 12/30/18 12/30/18 12/28/18 History Losartan [Cozaar] 50 mg .ROUTE DAILY 12/30/18 12/30/18 12/28/18 History Metformin ER (Nf) 500 gm .ROUTE BID 12/30/18 12/30/18 12/28/18 History Metoprolol 50 mg PO DAILY 12/30/18 12/30/18 12/28/18 History Potassium 10 meq PO DAILY 12/30/18 12/30/18 12/28/18 History Ropinirole HCl 1 mg PO DAILY 12/30/18 12/30/18 12/28/18 History Sertraline 25 mg PO DAILY 12/30/18 12/30/18 12/28/18 History Sertraline 75 mg PO DAILY 12/30/18 12/30/18 12/28/18 History Active Medications: Generic Name Dose Route Start Last Admin Trade Name Freq PRN Reason Stop Dose Admin Acetaminophen 650 mg 12/29/18 04:49 12/30/18 08:33 Tylenol LA 650 mg Q4H PRN Administration Fever >101 Albuterol/Ipratropium 1 ampul 01/01/19 14:00 01/11/19 06:25 Duoneb *Not For Prn Use* IH Not Given Q6HRT WENDY Atorvastatin Calcium 40 mg 01/04/19 22:00 01/11/19 00:12 Lipitor PO 40 mg QHS WENDY Administration Dextrose 50 ml 12/29/18 04:47 D50w (25gm) Syringe IV PRN PRN Hypoglycemia Famotidine 20 mg 01/04/19 10:00 01/11/19 00:12 Pepcid PO 20 mg BID WENDY Administration Folic Acid 1 mg 01/06/19 12:00 01/10/19 09:41 Folvite PO 1 mg QDAY WENDY Administration Fondaparinux 7.5 mg 01/10/19 13:00 01/10/19 14:43 Arixtra SUB-Q 01/11/19 10:01 7.5 mg QDAY WENDY Administration Fondaparinux 2.5 mg 01/10/19 13:00 01/10/19 14:43 Arixtra SUB-Q 01/11/19 10:01 2.5 mg QDAY WENDY Administration Furosemide 40 mg 01/10/19 18:00 01/11/19 06:53 Lasix IV 40 mg 0600,1800 WENDY Administration Gabapentin 300 mg 01/10/19 22:00 01/11/19 00:12 Neurontin PO 300 mg HS WENDY Administration Haloperidol Lactate 5 mg 01/07/19 11:33 01/10/19 01:14 Haldol IM 5 mg Q6H PRN Administration Agitation Hydralazine HCl 10 mg 01/01/19 13:23 Apresoline IV Q4HR PRN SBP >/=170 Insulin Human Regular 0 units 01/04/19 11:30 01/11/19 07:12 Humulin R SUB-Q Not Given A[facility]S [facility] Protocol Levetiracetam 500 mg 01/04/19 10:00 01/11/19 00:12 Keppra PO 500 mg BID WENDY Administration Losartan Potassium 50 mg 01/04/19 11:00 01/10/19 09:41 Cozaar PO 50 mg DAILY WENDY Administration Metformin HCl 500 mg 01/10/19 17:00 01/10/19 18:17 Glucophage Xr PO 500 mg BIDDIAB WENDY Administration Metoprolol Tartrate 12.5 mg 01/03/19 11:00 01/11/19 00:12 Lopressor PO 12.5 mg BID WENDY Administration Ondansetron HCl 4 mg 12/29/18 04:49 Zofran IV Q8H PRN Nausea And Vomiting Quetiapine Fumarate 50 mg 01/08/19 22:00 01/11/19 00:13 Seroquel PO 50 mg QHS WENDY Administration Ropinirole HCl 1 mg 01/11/19 10:00 Requip PO DAILY WENDY Sertraline HCl 100 mg 01/11/19 10:00 Zoloft PO QDAY WENDY Zolpidem Tartrate 5 mg 01/07/19 11:08 01/07/19 21:48 Ambien PO 5 mg QHS PRN Administration Sleep
--- NOTE | 2019-01-11 09:43 | Progress Note ---
<DARLEEN ALEXANDER - Last Filed: 01/11/19 13:22> Assessment and Plan Assessment and plan: 73-year-old male, with morbid obesity, HTN, CAD, s/p HI, Seizure, admitted after spouse found him on the floor with agonal breathing 10 mins after he went to bed. EMS was called and transported to the hospital in. He was diagnosed with acute respiratory failure, intubated in the ED. Patient was extubated on 01/01, put on BIPAP . Currently patient is on Ventimask because he mouth breathes, desaturates, and pull of NC, when sleeping. He was diagnosed with sepsis due to pneumonia, completed Antibiotics. He is also diagnosed with DVT both legs, seen by Dr. Rivera, was put on Arixtra. He had thrombocytopenia, now resolved. He is being switched to Eliquis on 01/07 but will hold for thoracentesis due to right pleural effusion. He pulled out Peripheral iv line and Mid line overnight 01/03, and also pulled out right chest tube overnight 01/04. He has been confused, agitated on and off. Started on on Haldol prn , and Seroquel nightly. Acute Hypoxic Respiratory failure- s/p extubated 01/01 Seizure Disorder DVT bilateral lower extremity Sepsis Right sided Pneumonia Large Right sided Pleural effusion- s/p chest tube was placed, s/p removal by patient Shock syndrome questionable septic versus cardiogenic Hypokalemia Morbid Obesity Thrombocytopenia- resolved Non ST elevated HI type II Presumed ischemic cardiomyopathy status post CABG Toxic metabolic encephalopathy Severe Protein calorie malnutrition Hyponatremia Hypocalcemia History of CVA 2 years ago Plan: Previously intubated, extubated on 01/01 , placed on BIPAP nocturnally, placed on Venti mass 50% FiO2 when awake Off heparin drip. Restarted Arixtra for 2 doses (5/2 and 5/3) will hold on Sat and Sun for pending thoracentesis Plans to start Eliquis post rt thoracentesis which has been pushed back to Sunday 01/14 Resume Plavix after rt thoracentesis ID following Continue AED Monitor electrolytes and replete prn DVT/GI prophy SCD's holding AC d/t pending thoracentesis Therapeutic and diagnostic right thoracentesis-pending Cardiology has been consulted; recommendations appreciated Confusion improving Continue Seroquel 50 mg nightly Continue Haldol when necessary History Interval history: He was seen today in the [facility]. He is resting comfortably in bed on Venti Mask 50% FiO2 with saturation of 96%. His periods of confusions are improving. He denies n/v/, and CP. Pt will be transferred to [facility] unit sometime this day. Hospitalist Physical - Physical exam Narrative exam: Present: no acute distress, obese - EENT Eyes: Present: PERRL, EOM intact ENT: hearing intact, clear oral mucosa - Neck Neck: Present: supple, normal ROM - Respiratory Respiratory effort: labored Respiratory: bilateral: diminished (poor air movement); On Ventimask 50% - Cardiovascular Heart rate: 84 (beats per minute) Rhythm: regular Heart Sounds: Present: S1 & S2. Absent: rub, click Details: - Extremities Extremities: pulses intact, pulses symmetrical, No edema Peripheral Pulses: within normal limits - Abdominal General gastrointestinal: soft, non-tender, normal bowel sounds, other (obese) - Integumentary Integumentary: Present: warm, dry - Psychiatric Psychiatric: cooperative - Neurologic Neurologic: CNII-XII intact, moves all extremities, other (periods of confusion and agitation) - Allied Health - Constitutional Vitals: Temp Pulse Resp BP Pulse Ox 97.5 F L 79 15 169/83 94 01/11/19 05:00 01/11/19 08:00 01/11/19 08:00 01/11/19 08:00 01/11/19 08:00 General appearance: Present: no acute distress, obese Results - Labs CBC & Chem 7: 01/11/19 04:09 01/11/19 04:09 Labs: Laboratory Last Values WBC 4.4 K/mm3 (4.5-11.0) L 01/11/19 04:09 RBC 4.32 M/mm3 (3.65-5.03) 01/11/19 04:09 Hgb 12.6 gm/dl (11.8-15.2) 01/11/19 04:09 Hct 38.6 % (35.5-45.6) 01/11/19 04:09 MCV 89 fl (84-94) 01/11/19 04:09 MCH 29 pg (28-32) 01/11/19 04:09 MCHC 33 % (32-34) 01/11/19 04:09 RDW 16.5 % (13.2-15.2) H 01/11/19 04:09 Plt Count 131 K/mm3 (140-440) L 01/11/19 04:09 Lymph % (Auto) 15.0 % (13.4-35.0) 01/11/19 04:09 [place] % (Auto) 11.8 % (0.0-7.3) H 01/11/19 04:09 Eos % (Auto) 2.9 % (0.0-4.3) 01/11/19 04:09 Baso % (Auto) 0.4 % (0.0-1.8) 01/11/19 04:09 Lymph # 0.7 K/mm3 (1.2-5.4) L 01/11/19 04:09 [place] # 0.5 K/mm3 (0.0-0.8) 01/11/19 04:09 Eos # 0.1 K/mm3 (0.0-0.4) 01/11/19 04:09 Baso # 0.0 K/mm3 (0.0-0.1) 01/11/19 04:09 Seg Neutrophils % 69.9 % (40.0-70.0) 01/11/19 04:09 Seg Neutrophils # 3.0 K/mm3 (1.8-7.7) 01/11/19 04:09 PT 16.5 Sec. (12.2-14.9) H 12/30/18 18:17 INR 1.25 (0.87-1.13) H 12/30/18 18:17 APTT 33.1 Sec. (24.2-36.6) 12/30/18 18:17 D-Dimer 815.50 ng/mlDDU (0-234) H 12/28/18 23:58 Heparin Anti-Xa Level 0.70 U.I./ml (0.3-0.7) 01/02/19 05:09 Heparin Anti-Xa, Unfract Negative (Negative) 01/02/19 05:26 POC ABG pH 7.318 (7.35-7.45) L 01/02/19 11:21 POC ABG pCO2 56.7 (35-45) H 01/02/19 11:21 POC ABG pO2 215 (80-105) H 01/02/19 11:21 POC ABG HCO3 29.1 (22-26 mml/L) 01/02/19 11:21 POC ABG Total CO2 31 (23-27mmol/L) 01/02/19 11:21 POC ABG O2 Sat 100 01/02/19 11:21 POC ABG Base Excess 3 ((-2) - (+3)mmol/L) 01/02/19 11:21 FiO2 60 % 01/02/19 11:21 Sodium 146 mmol/L (137-145) H 01/11/19 04:09 Potassium 3.4 mmol/L (3.6-5.0) L D 01/11/19 04:09 Chloride 96.9 mmol/L (98-107) L 01/11/19 04:09 Carbon Dioxide 40 mmol/L (22-30) H D 01/11/19 04:09 Anion Gap 13 mmol/L 01/11/19 04:09 BUN 11 mg/dL (9-20) 01/11/19 04:09 Creatinine 0.7 mg/dL (0.8-1.5) L 01/11/19 04:09 Estimated GFR > 60 ml/min 01/11/19 04:09 BUN/Creatinine Ratio 16 % 01/11/19 04:09 Glucose 110 mg/dL (75-100) H 01/11/19 04:09 POC Glucose 116 (70-105) H 01/11/19 07:31 Lactic Acid 1.50 mmol/L (0.7-2.0) 12/30/18 11:42 Calcium 8.9 mg/dL (8.4-10.2) 01/11/19 04:09 Phosphorus 2.30 mg/dL (2.5-4.5) L 01/11/19 04:09 Magnesium 2.00 mg/dL (1.7-2.3) 01/11/19 04:09 Iron 34 ug/dL (49-181) L 01/02/19 05:09 TIBC 231 mcg/dL (250-450) L 01/02/19 05:09 Ferritin 163.3 ng/mL (13.0-400.0) 01/02/19 05:09 Total Bilirubin 0.70 mg/dL (0.1-1.2) 01/11/19 04:09 AST 17 units/L (5-40) 01/11/19 04:09 ALT 11 units/L (7-56) 01/11/19 04:09 Alkaline Phosphatase 51 units/L (35-129) 01/11/19 04:09 Lactate Dehydrogenase 405 units/L (91-180) H 12/29/18 15:02 Total Creatine Kinase 837 units/L (55-170) H 12/29/18 12:51 CK-MB (CK-2) 10.5 ng/mL (0.0-4.0) H 12/29/18 12:51 CK-MB (CK-2) Rel Index 1.2 (0-4) 12/29/18 12:51 Troponin T 0.060 ng/mL (0.00-0.029) H D 12/30/18 13:53 C-Reactive Protein 2.80 mg/dL (0.00-1.30) H 12/29/18 16:46 NT-Pro-B Natriuret Pep 4783 pg/mL (0-900) H 01/06/19 17:04 Total Protein 5.4 g/dL (6.3-8.2) L 01/11/19 04:09 Albumin 2.6 g/dL (3.9-5) L 01/11/19 04:09 Albumin/Globulin Ratio 0.9 % 01/11/19 04:09 Triglycerides 113 mg/dL (2-149) 12/29/18 08:34 Cholesterol 120 mg/dL (50-199) 12/29/18 08:34 LDL Cholesterol Direct 82 mg/dL (50-130) 12/29/18 08:34 HDL Cholesterol 34 mg/dL (40-59) L 12/29/18 08:34 Cholesterol/HDL Ratio 3.52 % 12/29/18 08:34 Serotonin Release Assay See scanned result 01/02/19 05:26 Vitamin B12 365.3 pg/mL (211-911) 01/02/19 05:09 Folate 6.01 ng/mL (7.3-26.0) L 01/02/19 05:09 Urine Color Yolande (Yellow) 12/29/18 03:00 Urine Turbidity Cloudy (Clear) 12/29/18 03:00 Urine pH 5.0 (5.0-7.0) 12/29/18 03:00 Ur Specific [place] 1.033 (1.003-1.030) H 12/29/18 03:00 Urine Protein >500 mg/dL (Negative) 12/29/18 03:00 Urine Glucose (UA) 150 mg/dL (Negative) 12/29/18 03:00 Urine Ketones Neg mg/dL (Negative) 12/29/18 03:00 Urine Blood Mod (Negative) 12/29/18 03:00 Urine Nitrite Neg (Negative) 12/29/18 03:00 Urine Bilirubin Neg (Negative) 12/29/18 03:00 Urine Urobilinogen < 2.0 mg/dL (<2.0) 12/29/18 03:00 Ur Leukocyte Esterase Neg (Negative) 12/29/18 03:00 Urine WBC (Auto) 31.0 /HPF (0.0-6.0) H 12/29/18 03:00 Urine RBC (Auto) 27.0 /HPF (0.0-6.0) 12/29/18 03:00 U Epithel Cells (Auto) 4.0 /HPF (0-13.0) 12/29/18 03:00 Urine Bacteria (Auto) 4+ /HPF (Negative) 12/29/18 03:00 Urine Mucus 3+ /HPF 12/29/18 03:00 Urine Opiates Screen Presumptive negative 12/29/18 03:00 Urine Methadone Screen Presumptive negative 12/29/18 03:00 Ur Barbiturates Screen Presumptive negative 12/29/18 03:00 Ur Phencyclidine Scrn Presumptive negative 12/29/18 03:00 Ur Amphetamines Screen Presumptive negative 12/29/18 03:00 U Benzodiazepines Scrn Presumptive negative 12/29/18 03:00 Urine Cocaine Screen Presumptive negative 12/29/18 03:00 U Marijuana (THC) Screen Presumptive negative 12/29/18 03:00 Drugs of Abuse Note Disclamer 12/29/18 03:00 Heparin-induced Plt Ab Negative (Negative) 01/02/19 05:26 UF Heparin High Dose 0 % Release 01/02/19 05:26 THOMAS UFH Low Dose 0.1 0 % Release 01/02/19 05:26 THOMAS UFH Low Dose 0.5 0 % Release 01/02/19 05:26 Urine Legionella Ag Not detected (Not Detected) 12/31/18 05:30 Blood Type O POSITIVE 12/29/18 01:53 Antibody Screen Negative 12/29/18 01:53 Crossmatch See Detail 12/29/18 01:53 Active Medications - Current Medications Current Medications: Generic Name Dose Route Start Last Admin Trade Name Freq PRN Reason Stop Dose Admin Acetaminophen 650 mg 12/29/18 04:49 12/30/18 08:33 Tylenol NV 650 mg Q4H PRN Administration Fever >101 Albuterol/Ipratropium 1 ampul 01/01/19 14:00 01/11/19 09:40 Duoneb *Not For Prn Use* IH 1 ampul Q6HRT WENDY Administration Atorvastatin Calcium 40 mg 01/04/19 22:00 01/11/19 00:12 Lipitor PO 40 mg QHS WENDY Administration Dextrose 50 ml 12/29/18 04:47 D50w (25gm) Syringe IV PRN PRN Hypoglycemia Famotidine 20 mg 01/04/19 10:00 01/11/19 00:12 Pepcid PO 20 mg BID WENDY Administration Folic Acid 1 mg 01/06/19 12:00 01/10/19 09:41 Folvite PO 1 mg QDAY WENDY Administration Fondaparinux 7.5 mg 01/10/19 13:00 01/10/19 14:43 Arixtra SUB-Q 01/11/19 10:01 7.5 mg QDAY WENDY Administration Fondaparinux 2.5 mg 01/10/19 13:00 01/10/19 14:43 Arixtra SUB-Q 01/11/19 10:01 2.5 mg QDAY WENDY Administration Furosemide 40 mg 01/10/19 18:00 01/11/19 06:53 Lasix IV 40 mg 0600,1800 WENDY Administration Gabapentin 300 mg 01/10/19 22:00 01/11/19 00:12 Neurontin PO 300 mg HS WENDY Administration Haloperidol Lactate 5 mg 01/07/19 11:33 01/10/19 01:14 Haldol IM 5 mg Q6H PRN Administration Agitation Hydralazine HCl 10 mg 01/01/19 13:23 Apresoline IV Q4HR PRN SBP >/=170 Potassium Chloride 10 meq in 100 mls @ 100 mls/hr 01/11/19 10:00 Kcl 10meq/100ml IV 01/11/19 11:59 Q1H [facility] Insulin Human Regular 0 units 01/04/19 11:30 01/11/19 07:12 Humulin R SUB-Q Not Given ACHS [facility] Protocol Levetiracetam 500 mg 01/04/19 10:00 01/11/19 00:12 Keppra PO 500 mg BID WENDY Administration Losartan Potassium 50 mg 01/04/19 11:00 01/10/19 09:41 Cozaar PO 50 mg DAILY WENDY Administration Metformin HCl 500 mg 01/10/19 17:00 01/10/19 18:17 Glucophage Xr PO 500 mg BIDDIAB WENDY Administration Metoprolol Tartrate 12.5 mg 01/03/19 11:00 01/11/19 00:12 Lopressor PO 12.5 mg BID WENDY Administration Ondansetron HCl 4 mg 12/29/18 04:49 Zofran IV Q8H PRN Nausea And Vomiting Quetiapine Fumarate 50 mg 01/08/19 22:00 01/11/19 00:13 Seroquel PO 50 mg QHS WENDY Administration Ropinirole HCl 1 mg 01/11/19 10:00 Requip PO DAILY [facility] Sertraline HCl 100 mg 01/11/19 10:00 Zoloft PO QDAY WENDY Zolpidem Tartrate 5 mg 01/07/19 11:08 01/07/19 21:48 Ambien PO 5 mg QHS PRN Administration Sleep Nutrition/Malnutrition Assess - Dietary Evaluation Nutrition/Malnutrition Findings: Nutrition Notes Start: 12/31/18 14:59 Freq: Status: Active Protocol: Document 01/07/19 12:07 LIZ (Rec: 01/07/19 12:13 [facility] [id number]) Nutrition Notes Initial or Follow up Reassessment Current Diagnosis Coronary Artery Disease, Diabetes,Hypertension, Respiratory Failure Other Pertinent Diagnosis (R) lung effusion, (R) pneu Current Diet Cardiac/consistent carbohydrate + Glucerna daily Labs/Tests Reviewed Pertinent Medications Reviewed Height 5 ft 7 in Weight 131.19 kg [place] Body Weight (kg) 67.27 BMI 45.3 Weight change and time frame Current wt obtained from bed scale Subjective/Other Information Pt reports poor appetite, but does drink the Glucerna. Pt family member states that he ate "a little bit" yesterday. Burn Absent Trauma Absent #1 Nutrition Diagnosis Inadequate oral intake Diagnosis Progress(for reassessment Continues documentation) Is patient on ventilator? No Is Patient Ambulatory and/or Out of Bed No REE-([facility]-confined to bed) 2412.252 Kcal/Kg value to use for calculation 14 Approximate Energy Requirements Using 1837 kcal/Kg Additional Notes Pro needs 1-1.2g/kg adjBW: 99- 119g/day Fluid needs 1ml/kcal Nutrition Intervention Change Diet Order: Continue current diet order Add Supplement/Snack (indicate name/kcal Glucerna [place] BID /protein ) Provides kCal: 440 Provides Protein (gm) 20 Goal #1 PO intake of meals plus ONS to meet at least 75% of energy and pro needs Follow-Up By: 01/11/19 Additional Comments F/U: intakes <FOX HERNANDEZ M - Last Filed: 01/13/19 22:11> Assessment and Plan Assessment and plan: I saw and evaluated the patient. I agree with the findings and the plan of care as documented in the Nurse Practitioner's~note, with the following corrections and additions. planned for R thoracentesis on Monday, plan is to restart eliquis and plavix after tap, cont lasix Hospitalist Physical - Constitutional Vitals: Temp Pulse Resp BP Pulse Ox 97.5 F L 82 18 103/61 94 01/13/19 19:56 01/13/19 21:35 01/13/19 20:50 01/13/19 21:35 01/13/19 19:56 Results - Labs CBC & Chem 7: 01/11/19 04:09 01/13/19 10:04 Labs: Laboratory Last Values WBC 4.4 K/mm3 (4.5-11.0) L 01/11/19 04:09 RBC 4.32 M/mm3 (3.65-5.03) 01/11/19 04:09 Hgb 12.6 gm/dl (11.8-15.2) 01/11/19 04:09 Hct 38.6 % (35.5-45.6) 01/11/19 04:09 MCV 89 fl (84-94) 01/11/19 04:09 MCH 29 pg (28-32) 01/11/19 04:09 MCHC 33 % (32-34) 01/11/19 04:09 RDW 16.5 % (13.2-15.2) H 01/11/19 04:09 Plt Count 131 K/mm3 (140-440) L 01/11/19 04:09 Lymph % (Auto) 15.0 % (13.4-35.0) 01/11/19 04:09 Valley % (Auto) 11.8 % (0.0-7.3) H 01/11/19 04:09 Eos % (Auto) 2.9 % (0.0-4.3) 01/11/19 04:09 Baso % (Auto) 0.4 % (0.0-1.8) 01/11/19 04:09 Lymph # 0.7 K/mm3 (1.2-5.4) L 01/11/19 04:09 Valley # 0.5 K/mm3 (0.0-0.8) 01/11/19 04:09 Eos # 0.1 K/mm3 (0.0-0.4) 01/11/19 04:09 Baso # 0.0 K/mm3 (0.0-0.1) 01/11/19 04:09 Seg Neutrophils % 69.9 % (40.0-70.0) 01/11/19 04:09 Seg Neutrophils # 3.0 K/mm3 (1.8-7.7) 01/11/19 04:09 PT 16.5 Sec. (12.2-14.9) H 12/30/18 18:17 INR 1.25 (0.87-1.13) H 12/30/18 18:17 APTT 33.1 Sec. (24.2-36.6) 12/30/18 18:17 D-Dimer 815.50 ng/mlDDU (0-234) H 12/28/18 23:58 Heparin Anti-Xa Level 0.70 U.I./ml (0.3-0.7) 01/02/19 05:09 Heparin Anti-Xa, Unfract Negative (Negative) 01/02/19 05:26 POC ABG pH 7.318 (7.35-7.45) L 01/02/19 11:21 POC ABG pCO2 56.7 (35-45) H 01/02/19 11:21 POC ABG pO2 215 (80-105) H 01/02/19 11:21 POC ABG HCO3 29.1 (22-26 mml/L) 01/02/19 11:21 POC ABG Total CO2 31 (23-27mmol/L) 01/02/19 11:21 POC ABG O2 Sat 100 01/02/19 11:21 POC ABG Base Excess 3 ((-2) - (+3)mmol/L) 01/02/19 11:21 FiO2 60 % 01/02/19 11:21 Sodium 143 mmol/L (137-145) 01/13/19 10:04 Potassium 3.9 mmol/L (3.6-5.0) 01/13/19 10:04 Chloride 89.5 mmol/L (98-107) L 01/13/19 10:04 Carbon Dioxide 46 mmol/L (22-30) H* 01/13/19 10:04 Anion Gap 11 mmol/L 01/13/19 10:04 BUN 15 mg/dL (9-20) 01/13/19 10:04 Creatinine 0.7 mg/dL (0.8-1.5) L 01/13/19 10:04 Estimated GFR > 60 ml/min 01/13/19 10:04 BUN/Creatinine Ratio 21 % 01/13/19 10:04 Glucose 107 mg/dL (75-100) H 01/13/19 10:04 POC Glucose 123 (70-105) H 01/13/19 21:37 Lactic Acid 1.50 mmol/L (0.7-2.0) 12/30/18 11:42 Calcium 9.0 mg/dL (8.4-10.2) 01/13/19 10:04 Phosphorus 2.30 mg/dL (2.5-4.5) L 01/11/19 04:09 Magnesium 2.00 mg/dL (1.7-2.3) 01/11/19 04:09 Iron 34 ug/dL (49-181) L 01/02/19 05:09 TIBC 231 mcg/dL (250-450) L 01/02/19 05:09 Ferritin 163.3 ng/mL (13.0-400.0) 01/02/19 05:09 Total Bilirubin 0.70 mg/dL (0.1-1.2) 01/11/19 04:09 AST 17 units/L (5-40) 01/11/19 04:09 ALT 11 units/L (7-56) 01/11/19 04:09 Alkaline Phosphatase 51 units/L (35-129) 01/11/19 04:09 Lactate Dehydrogenase 405 units/L (91-180) H 12/29/18 15:02 Total Creatine Kinase 837 units/L (55-170) H 12/29/18 12:51 CK-MB (CK-2) 10.5 ng/mL (0.0-4.0) H 12/29/18 12:51 CK-MB (CK-2) Rel Index 1.2 (0-4) 12/29/18 12:51 Troponin T 0.060 ng/mL (0.00-0.029) H D 12/30/18 13:53 C-Reactive Protein 2.80 mg/dL (0.00-1.30) H 12/29/18 16:46 NT-Pro-B Natriuret Pep 4783 pg/mL (0-900) H 01/06/19 17:04 Total Protein 5.4 g/dL (6.3-8.2) L 01/11/19 04:09 Albumin 2.6 g/dL (3.9-5) L 01/11/19 04:09 Albumin/Globulin Ratio 0.9 % 01/11/19 04:09 Triglycerides 113 mg/dL (2-149) 12/29/18 08:34 Cholesterol 120 mg/dL (50-199) 12/29/18 08:34 LDL Cholesterol Direct 82 mg/dL (50-130) 12/29/18 08:34 HDL Cholesterol 34 mg/dL (40-59) L 12/29/18 08:34 Cholesterol/HDL Ratio 3.52 % 12/29/18 08:34 Serotonin Release Assay See scanned result 01/02/19 05:26 Vitamin B12 365.3 pg/mL (211-911) 01/02/19 05:09 Folate 6.01 ng/mL (7.3-26.0) L 01/02/19 05:09 Urine Color Yolande (Yellow) 12/29/18 03:00 Urine Turbidity Cloudy (Clear) 12/29/18 03:00 Urine pH 5.0 (5.0-7.0) 12/29/18 03:00 Ur Specific [place] 1.033 (1.003-1.030) H 12/29/18 03:00 Urine Protein >500 mg/dL (Negative) 12/29/18 03:00 Urine Glucose (UA) 150 mg/dL (Negative) 12/29/18 03:00 Urine Ketones Neg mg/dL (Negative) 12/29/18 03:00 Urine Blood Mod (Negative) 12/29/18 03:00 Urine Nitrite Neg (Negative) 12/29/18 03:00 Urine Bilirubin Neg (Negative) 12/29/18 03:00 Urine Urobilinogen < 2.0 mg/dL (<2.0) 12/29/18 03:00 Ur Leukocyte Esterase Neg (Negative) 12/29/18 03:00 Urine WBC (Auto) 31.0 /HPF (0.0-6.0) H 12/29/18 03:00 Urine RBC (Auto) 27.0 /HPF (0.0-6.0) 12/29/18 03:00 U Epithel Cells (Auto) 4.0 /HPF (0-13.0) 12/29/18 03:00 Urine Bacteria (Auto) 4+ /HPF (Negative) 12/29/18 03:00 Urine Mucus 3+ /HPF 12/29/18 03:00 Urine Opiates Screen Presumptive negative 12/29/18 03:00 Urine Methadone Screen Presumptive negative 12/29/18 03:00 Ur Barbiturates Screen Presumptive negative 12/29/18 03:00 Ur Phencyclidine Scrn Presumptive negative 12/29/18 03:00 Ur Amphetamines Screen Presumptive negative 12/29/18 03:00 U Benzodiazepines Scrn Presumptive negative 12/29/18 03:00 Urine Cocaine Screen Presumptive negative 12/29/18 03:00 U Marijuana (THC) Screen Presumptive negative 12/29/18 03:00 Drugs of Abuse Note Disclamer 12/29/18 03:00 Heparin-induced Plt Ab Negative (Negative) 01/02/19 05:26 UF Heparin High Dose 0 % Release 01/02/19 05:26 THOMAS UFH Low Dose 0.1 0 % Release 01/02/19 05:26 THOMAS UFH Low Dose 0.5 0 % Release 01/02/19 05:26 Urine Legionella Ag Not detected (Not Detected) 12/31/18 05:30 Blood Type O POSITIVE 12/29/18 01:53 Antibody Screen Negative 12/29/18 01:53 Crossmatch See Detail 12/29/18 01:53 Active Medications - Current Medications Current Medications: Generic Name Dose Route Start Last Admin Trade Name Freq PRN Reason Stop Dose Admin Acetaminophen 650 mg 12/29/18 04:49 12/30/18 08:33 Tylenol NV 650 mg Q4H PRN Administration Fever >101 Acetaminophen 650 mg 01/13/19 18:56 01/13/19 19:01 Tylenol PO 650 mg Q6H PRN Administration Pain, Mild (1-3) Albuterol/Ipratropium 1 ampul 01/01/19 14:00 01/13/19 20:49 Duoneb *Not For Prn Use* IH 1 ampul Q6HRT WENDY Administration Apixaban 5 mg 01/12/19 22:00 01/13/19 21:34 Eliquis PO 5 mg Q12HR WENDY Administration Protocol Atorvastatin Calcium 40 mg 01/04/19 22:00 01/13/19 21:34 Lipitor PO 40 mg QHS WENDY Administration Clopidogrel Bisulfate 75 mg 01/12/19 21:00 01/13/19 10:57 Plavix PO 75 mg QDAY WENDY Administration Dextrose 50 ml 12/29/18 04:47 D50w (25gm) Syringe IV PRN PRN Hypoglycemia Famotidine 20 mg 01/04/19 10:00 01/13/19 21:34 Pepcid PO 20 mg BID WENDY Administration Folic Acid 1 mg 01/06/19 12:00 01/13/19 09:46 Folvite PO 1 mg QDAY WENDY Administration Furosemide 20 mg 01/13/19 13:40 Lasix IV 1000 WENDY Gabapentin 300 mg 01/10/19 22:00 01/13/19 21:34 Neurontin PO 300 mg HS WENDY Administration Haloperidol Lactate 5 mg 01/07/19 11:33 01/12/19 02:21 Haldol IM 5 mg Q6H PRN Administration Agitation Hydralazine HCl 10 mg 01/01/19 13:23 Apresoline IV Q4HR PRN SBP >/=170 Insulin Human Regular 0 units 01/04/19 11:30 01/13/19 21:35 Humulin R SUB-Q Not Given ACHS [facility] Protocol Levetiracetam 500 mg 01/04/19 10:00 01/13/19 21:34 Keppra PO 500 mg BID WENDY Administration Losartan Potassium 50 mg 01/04/19 11:00 01/13/19 09:48 Cozaar PO Not Given DAILY WENDY Metformin HCl 500 mg 01/10/19 17:00 01/13/19 17:28 Glucophage Xr PO 500 mg BIDDIAB WENDY Administration Metoprolol Tartrate 12.5 mg 01/03/19 11:00 01/13/19 21:35 Lopressor PO 12.5 mg BID WENDY Administration Ondansetron HCl 4 mg 12/29/18 04:49 Zofran IV Q8H PRN Nausea And Vomiting Quetiapine Fumarate 50 mg 01/08/19 22:00 01/13/19 21:34 Seroquel PO 50 mg QHS WENDY Administration Ropinirole HCl 1 mg 01/11/19 10:00 01/13/19 09:24 Requip PO 1 mg DAILY WENDY Administration Sertraline HCl 100 mg 01/11/19 10:00 01/13/19 09:25 Zoloft PO 100 mg QDAY WENDY Administration Nutrition/Malnutrition Assess - Dietary Evaluation Nutrition/Malnutrition Findings: Nutrition Notes Start: 12/31/18 14:59 Freq: Status: Active Protocol: Document 01/12/19 11:17 [facility] (Rec: 01/12/19 11:22 [facility] [id number]) Nutrition Notes Initial or Follow up Reassessment Current Diagnosis Coronary Artery Disease, Diabetes,Hypertension, Respiratory Failure Other Pertinent Diagnosis (R) lung effusion, (R) pneu Current Diet Cardiac/consistent carbohydrate + Glucerna BID Labs/Tests Reviewed Pertinent Medications Reviewed Height 5 ft 7 in Weight 126.5 kg [place] Body Weight (kg) 67.27 BMI 43.7 Subjective/Other Information Pt consuming 19% of meals. He is confused and agitated at times. Burn Absent Trauma Absent #1 Nutrition Diagnosis Inadequate oral intake Diagnosis Progress(for reassessment Continues documentation) Is patient on ventilator? No Is Patient Ambulatory and/or Out of Bed No REE-([facility]-confined to bed) 2356.032 Kcal/Kg value to use for calculation 14 Approximate Energy Requirements Using 1771 kcal/Kg Additional Notes Pro needs 1-1.2g/kg adjBW: 97- 116g/day Fluid needs 1ml/kcal Nutrition Intervention Change Diet Order: Continue current diet order Add Supplement/Snack (indicate name/kcal Glucerna [place] BID /protein ) Provides kCal: 440 Provides Protein (gm) 20 Goal #1 PO intake of meals plus ONS to meet at least 75% of energy and pro needs Follow-Up By: 01/15/19 Additional Comments F/U: intakes (meals/ONS), wt
[2019-01-11] MEDS ORDERED: SERTRALINE 75 MG PO SCH (10:00)
[2019-01-11] MEDS ORDERED: SERTRALINE 25 MG PO SCH (10:00)
[2019-01-11] MEDS: GLUCOPHAGE XR PO SCH ×2 (10:30→17:28)
[2019-01-11] MEDS: ZOLOFT PO SCH (10:30)
[2019-01-11] MEDS: FOLVITE PO SCH (10:30)
--- NOTE | 2019-01-11 10:43 | Progress Note ---
Assessment and Plan Cultures: 12/28/2018 sputum culture: Normal respiratory ramses 12/29/2018 right pleural fluid culture: No growth in 24 hours / no organisms, no PMN, few mononuclear cells 12/29/2018 blood culture: no growth 12/29/2018 urine culture: No growth in 24 hours A/P: 73-year-old male with history of morbid obesity, ELIGOI on CPAP, CAD s/p CABG, diabetes, restless leg syndrome was brought to the emergency room on 12/28/2018 with a respiratory arrest: 1) Shock, etiology unclear: septic v/s cardiogenic. Resolved. No fever prior to admission, no leucocytosis. Fever resolved. Unclear etiology?. Large R pleural effusion, ?underlying pneumonia. No urinary symptoms, urine culture with no growth (UA with some pyuria). 2) Acute respiratory failure: better; Ventimask 3) Large R pleural effusion: s/p thoracentesis and chest tube on 12/29/2018. Patient removed CT. Cannot rule out underlying pneumonia v/s aspiration from seizure. Pleural fluid studies pending/no sent. Pleural Gram stain not c/w empyema. Pleural culture so far negative. 12/28/2018 sputum culture showed Normal respiratory ramses. legionella not detected 4) ?Seizures: per family with previous history of seizures. Neurology on board. 5) PCN allergy: remote allergy as a child. agreeable to try Cephalosporins. 6) Thrombocytopenia: better? meds Recs: monitor off antibiotics follow up on repeat thoracentesis ID is signing off [facility] M: [id number] O:[phone] Subjective Date of service: 01/11/19 Principal diagnosis: dvt and low plt Interval history: Patient seen and examined. Sitting up in the chair. No acute distress observed. No fevers. Objective - Exam Narrative Exam: General appearance: Awake. Alert. speech garbled. Eyes: anicteric sclerae, moist conjunctivae; no lid-lag; PERRLA HENT: Atraumatic; oropharynx with O2 mask Neck: Trachea midline; supple, no thyromegaly or lymphadenopathy Lungs: coarse himanshu , Venturi mask CV: RRR Abdomen: Soft, obese non-tender Extremities: himanshu arm/legs edema Skin: himanshu arms ecchymoses Psych: calm. Neuro: Awake. Garbled speech - Constitutional Vitals: Vital Signs Temp Pulse Resp BP Pulse Ox 98 F 66 20 169/83 96 01/11/19 08:00 01/11/19 10:09 01/11/19 10:09 01/11/19 08:00 01/11/19 10:00 Temperature -Last 24 Hours Temperature 98 F Temperature 97.5 F Temperature 97.6 F Temperature 99 F Temperature 99.0 F Temperature 96.2 F Temperature 96.2 F Temperature 98.0 F Temperature 98.7 F - Labs CBC & Chem 7: 01/11/19 04:09 01/11/19 04:09 Labs: Abnormal lab results 01/10/19 01/10/19 01/10/19 Range/Units 11:46 16:45 22:41 WBC (4.5-11.0) K/mm3 RDW (13.2-15.2) % Plt Count (140-440) K/mm3 Tate % (Auto) (0.0-7.3) % Lymph # (1.2-5.4) K/mm3 Sodium (137-145) mmol/L Potassium (3.6-5.0) mmol/L Chloride (98-107) mmol/L Carbon Dioxide (22-30) mmol/L Creatinine (0.8-1.5) mg/dL Glucose (75-100) mg/dL POC Glucose 126 H 136 H 132 H (70-105) Phosphorus (2.5-4.5) mg/dL Total Protein (6.3-8.2) g/dL Albumin (3.9-5) g/dL 01/11/19 01/11/19 01/11/19 Range/Units 04:09 04:09 07:31 WBC 4.4 L (4.5-11.0) K/mm3 RDW 16.5 H (13.2-15.2) % Plt Count 131 L (140-440) K/mm3 Tate % (Auto) 11.8 H (0.0-7.3) % Lymph # 0.7 L (1.2-5.4) K/mm3 Sodium 146 H (137-145) mmol/L Potassium 3.4 L D (3.6-5.0) mmol/L Chloride 96.9 L (98-107) mmol/L Carbon Dioxide 40 H D (22-30) mmol/L Creatinine 0.7 L (0.8-1.5) mg/dL Glucose 110 H (75-100) mg/dL POC Glucose 116 H (70-105) Phosphorus 2.30 L (2.5-4.5) mg/dL Total Protein 5.4 L (6.3-8.2) g/dL Albumin 2.6 L (3.9-5) g/dL
[2019-01-11] MEDS: COZAAR PO SCH (11:00)
[2019-01-11] MEDS: ARIXTRA SUB-Q SCH ×2 (12:07→12:08)
[2019-01-11] MEDS ORDERED: K-DUR PO ONE (12:44)
[2019-01-11] MEDS: REQUIP PO SCH (13:05)
--- NOTE | 2019-01-11 13:41 | Progress Note ---
Assessment and Plan Acute hypoxemic hypercapnic respiratory failure, on mechanical ventilation support. Bilateral pleural effusions, complex looking on the right. Right lung complete atelectasis. Right pneumonia, appears to be community-acquired. Severe sepsis with shock, on Levophed. Anemia that is normocytic present at presentation; however, I think that may be an abnormal lab value. Hypokalemia at presentation that may also be an abnormal lab value. Hypocalcemia at presentation that may also be abnormal lab value. Morbid obesity. History of diabetes. History of hypertension. Restless legs syndrome. Elevated D-dimer - repeat US thoracentesis and send for studies again - will repeat CT chest re: ? RLL pleural lesion - continue Arixtra for VTE - continue BIPAP qhs - continue scheduled lasix 20 mg IV daily - cardiology evaluation ongoing (input appreciated) - continue bronchodilators with pulmonary hygiene per RT - continue to wean supplemental oxygen to keep O2 sats 88-90% acutely - ID input appreciated - continue Stress ulcer prophylaxis - ST evaluation and advance diet - resume chronic home medications per attending - continue accuchecks with glycemic control for target glucose of 140-180 mg/dL - Maintenance of sleep-wake cycle - Mobility protocol as tolerated by hemodynamics for pressure ulcer prophylaxis - Influenza and pneumonia vaccination per protocol .... re-evaluate in am & prn Subjective Date of service: 01/10/19 Principal diagnosis: Acute resp failure, NSTEMI 2, R pleural effusion, Acute himanshu LE DVT, CAD Interval history: LATE-ENTRY Patient is seen today for: Acute hypoxemic hypercapnic respiratory failure on MVS; Bilateral pleural effusions, complex looking on the right; Right lung complete atelectasis; Right pneumonia (appears to be community-acquired); Severe sepsis with shock, on Levophed Seen and examined at bedside; 24hour events reviewed; nursing and respiratory care staff consulted; no adverse overnight events reported to me; resting peacefully in bed; awaiting thoracentesis as was on Plavix and held now; Objective Vital Signs - 12hr 01/11/19 01/11/19 01/11/19 02:00 03:00 04:00 Temperature 97.6 F Pulse Rate 81 84 79 Pulse Rate [ Bilateral] Pulse Rate [ 77 From Monitor] Respiratory 23 12 18 Rate Respiratory Rate [Bilateral ] Blood Pressure 112/70 115/59 132/66 O2 Sat by Pulse 93 95 94 Oximetry 01/11/19 01/11/19 01/11/19 05:00 06:00 07:00 Temperature 97.5 F L Pulse Rate 82 90 79 Pulse Rate [ Bilateral] Pulse Rate [ From Monitor] Respiratory 14 17 19 Rate Respiratory Rate [Bilateral ] Blood Pressure 125/80 125/80 173/150 O2 Sat by Pulse 91 84 97 Oximetry 01/11/19 01/11/19 01/11/19 08:00 08:10 08:20 Temperature 98 F Pulse Rate 87 76 57 L Pulse Rate [ Bilateral] Pulse Rate [ 79 From Monitor] Respiratory 16 16 15 Rate Respiratory Rate [Bilateral ] Blood Pressure 169/83 169/83 169/83 O2 Sat by Pulse 97 96 95 Oximetry 01/11/19 01/11/19 01/11/19 08:30 08:40 08:50 Temperature Pulse Rate 72 72 66 Pulse Rate [ Bilateral] Pulse Rate [ From Monitor] Respiratory 12 14 14 Rate Respiratory Rate [Bilateral ] Blood Pressure 169/83 169/83 169/83 O2 Sat by Pulse 96 97 97 Oximetry 01/11/19 01/11/19 01/11/19 09:00 09:10 09:20 Temperature Pulse Rate 90 80 68 Pulse Rate [ Bilateral] Pulse Rate [ From Monitor] Respiratory 18 19 21 Rate Respiratory Rate [Bilateral ] Blood Pressure 169/83 254/202 254/202 O2 Sat by Pulse 89 93 95 Oximetry 01/11/19 01/11/19 01/11/19 09:30 09:40 09:50 Temperature Pulse Rate 70 75 66 Pulse Rate [ Bilateral] Pulse Rate [ From Monitor] Respiratory 17 20 16 Rate Respiratory Rate [Bilateral ] Blood Pressure 254/202 254/202 254/202 O2 Sat by Pulse 94 93 94 Oximetry 01/11/19 01/11/19 01/11/19 10:00 10:09 10:10 Temperature Pulse Rate 74 80 Pulse Rate [ 66 Bilateral] Pulse Rate [ From Monitor] Respiratory 16 22 Rate Respiratory 20 Rate [Bilateral ] Blood Pressure 254/202 126/48 O2 Sat by Pulse 94 94 Oximetry 01/11/19 01/11/19 01/11/19 10:20 10:30 10:40 Temperature Pulse Rate 86 Pulse Rate [ Bilateral] Pulse Rate [ From Monitor] Respiratory Rate Respiratory Rate [Bilateral ] Blood Pressure 126/48 126/48 126/48 O2 Sat by Pulse 93 93 94 Oximetry 0501/11/19 01/11/19 10:50 11:00 11:10 Temperature Pulse Rate 82 79 Pulse Rate [ Bilateral] Pulse Rate [ From Monitor] Respiratory 12 Rate Respiratory Rate [Bilateral ] Blood Pressure 126/48 126/48 123/62 O2 Sat by Pulse 93 92 93 Oximetry 01/11/19 01/11/19 01/11/19 11:20 11:30 11:40 Temperature Pulse Rate Pulse Rate [ Bilateral] Pulse Rate [ From Monitor] Respiratory Rate Respiratory Rate [Bilateral ] Blood Pressure 123/62 123/62 123/62 O2 Sat by Pulse 92 94 97 Oximetry 01/11/19 01/11/19 01/11/19 11:50 12:00 12:10 Temperature Pulse Rate 84 Pulse Rate [ Bilateral] Pulse Rate [ From Monitor] Respiratory 20 Rate Respiratory Rate [Bilateral ] Blood Pressure 123/62 123/62 123/62 O2 Sat by Pulse 96 97 98 Oximetry Constitutional: alert, appears uncomfortable, other (elderly looking morbidly obese CM normocephalic and withmildly increased work of breathing at rest) Eyes: non-icteric ENT: oropharynx moist Neck: supple, no lymphadenopathy, no JVD, other (large neck circumference) Effort: mildly labored Ascultation: Bilateral: diminished breath sounds, rhonchi (bases), other (Right chest tube) Percussion: Bilateral: not dull Cardiovascular: regular rate and rhythm, other (No R/M) Gastrointestinal: normoactive bowel sounds, soft, non-tender, non-distended Integumentary: normal Extremities: no cyanosis, pink and warm, pulses normal, no ischemia or petechiae, edema (1+) Neurologic: normal mental status, non-focal exam (grossly), pupils equal and round, CN II-XII normal, motor strength normal and Psychiatric: mood appropriate, affect normal CBC and BMP: 01/11/19 04:09 01/11/19 04:09 ABG, PT/INR, D-dimer: ABG POC ABG pH 7.318 (7.35-7.45) L 01/02/19 11:21 POC ABG pCO2 56.7 (35-45) H 01/02/19 11:21 POC ABG pO2 215 (80-105) H 01/02/19 11:21 POC ABG HCO3 29.1 (22-26 mml/L) 01/02/19 11:21 POC ABG Total CO2 31 (23-27mmol/L) 01/02/19 11:21 POC ABG O2 Sat 100 01/02/19 11:21 PT/INR, D-dimer PT 16.5 Sec. (12.2-14.9) H 12/30/18 18:17 INR 1.25 (0.87-1.13) H 12/30/18 18:17 D-Dimer 815.50 ng/mlDDU (0-234) H 12/28/18 23:58 Abnormal lab findings: Abnormal Labs 12/28/18 12/28/18 12/28/18 23:58 23:58 23:58 WBC RBC 2.24 L Hgb 6.7 L Hct 20.9 L RDW 16.4 H Plt Count 99 L Lymph % (Auto) 10.7 L [place] % (Auto) 7.9 H Lymph # 0.6 L [place] # Seg Neutrophils % 80.7 H PT INR D-Dimer 815.50 H Heparin Anti-Xa Level POC ABG pH POC ABG pCO2 POC ABG pO2 Sodium 148 H Potassium 2.3 L* Chloride 128.4 H Carbon Dioxide 12 L BUN Creatinine 0.4 L Glucose POC Glucose Lactic Acid Calcium 5.0 L* Phosphorus Iron TIBC Total Bilirubin AST ALT < 5 L Lactate Dehydrogenase Total Creatine Kinase 44 L CK-MB (CK-2) CK-MB (CK-2) Rel Index 4.3 H Troponin T C-Reactive Protein NT-Pro-B Natriuret Pep Total Protein 2.3 L Albumin 1.1 L HDL Cholesterol Folate Ur Specific [place] Urine WBC (Auto) Crossmatch 12/28/18 12/29/18 12/29/18 23:58 00:27 01:53 WBC RBC Hgb Hct RDW Plt Count Lymph % (Auto) [place] % (Auto) Lymph # [place] # Seg Neutrophils % PT INR D-Dimer Heparin Anti-Xa Level POC ABG pH 7.169 L POC ABG pCO2 POC ABG pO2 Sodium Potassium Chloride Carbon Dioxide BUN Creatinine Glucose POC Glucose Lactic Acid Calcium Phosphorus Iron TIBC Total Bilirubin AST ALT Lactate Dehydrogenase Total Creatine Kinase CK-MB (CK-2) CK-MB (CK-2) Rel Index Troponin T C-Reactive Protein NT-Pro-B Natriuret Pep 1209 H Total Protein Albumin HDL Cholesterol Folate Ur Specific [place] Urine WBC (Auto) Crossmatch See Detail 12/29/18 12/29/18 12/29/18 03:00 05:02 08:34 WBC RBC Hgb Hct RDW Plt Count Lymph % (Auto) [place] % (Auto) Lymph # [place] # Seg Neutrophils % PT INR D-Dimer Heparin Anti-Xa Level POC ABG pH 7.225 L POC ABG pCO2 57.9 H POC ABG pO2 Sodium Potassium Chloride Carbon Dioxide BUN Creatinine Glucose POC Glucose Lactic Acid Calcium Phosphorus Iron TIBC Total Bilirubin AST ALT Lactate Dehydrogenase Total Creatine Kinase 344 H CK-MB (CK-2) 7.9 H CK-MB (CK-2) Rel Index Troponin T 0.103 H* D C-Reactive Protein NT-Pro-B Natriuret Pep Total Protein Albumin HDL Cholesterol 34 L Folate Ur Specific [place] 1.033 H Urine WBC (Auto) 31.0 H Crossmatch 12/29/18 12/29/18 12/29/18 08:34 08:53 12:51 WBC RBC Hgb Hct RDW Plt Count Lymph % (Auto) [place] % (Auto) Lymph # [place] # Seg Neutrophils % PT INR D-Dimer Heparin Anti-Xa Level POC ABG pH POC ABG pCO2 POC ABG pO2 Sodium Potassium 5.7 H D Chloride Carbon Dioxide BUN 21 H Creatinine Glucose 124 H POC Glucose 119 H Lactic Acid Calcium Phosphorus Iron TIBC Total Bilirubin AST ALT Lactate Dehydrogenase Total Creatine Kinase 837 H CK-MB (CK-2) 10.5 H CK-MB (CK-2) Rel Index Troponin T 0.084 H C-Reactive Protein NT-Pro-B Natriuret Pep Total Protein Albumin HDL Cholesterol Folate Ur Specific [place] Urine WBC (Auto) Crossmatch 12/29/18 12/29/18 12/29/18 12:51 12:51 15:02 WBC RBC Hgb Hct RDW 16.0 H Plt Count Lymph % (Auto) [place] % (Auto) 13.3 H Lymph # [place] # 1.4 H Seg Neutrophils % PT INR D-Dimer Heparin Anti-Xa Level POC ABG pH POC ABG pCO2 POC ABG pO2 Sodium Potassium 5.4 H Chloride Carbon Dioxide 19 L 17 L BUN 21 H 21 H Creatinine Glucose 116 H 115 H POC Glucose Lactic Acid Calcium Phosphorus Iron TIBC Total Bilirubin 1.50 H AST 43 H ALT Lactate Dehydrogenase 405 H Total Creatine Kinase CK-MB (CK-2) CK-MB (CK-2) Rel Index Troponin T C-Reactive Protein NT-Pro-B Natriuret Pep Total Protein 6.2 L D Albumin 3.1 L HDL Cholesterol Folate Ur Specific [place] Urine WBC (Auto) Crossmatch 12/29/18 12/29/18 12/29/18 15:03 16:46 16:46 WBC RBC Hgb Hct RDW Plt Count Lymph % (Auto) [place] % (Auto) Lymph # [place] # Seg Neutrophils % PT INR D-Dimer Heparin Anti-Xa Level POC ABG pH POC ABG pCO2 POC ABG pO2 Sodium Potassium Chloride Carbon Dioxide BUN Creatinine Glucose POC Glucose 121 H Lactic Acid 2.70 H* Calcium Phosphorus Iron TIBC Total Bilirubin AST ALT Lactate Dehydrogenase Total Creatine Kinase CK-MB (CK-2) CK-MB (CK-2) Rel Index Troponin T C-Reactive Protein 2.80 H NT-Pro-B Natriuret Pep Total Protein Albumin HDL Cholesterol Folate Ur Specific [place] Urine WBC (Auto) Crossmatch 12/29/18 12/29/18 12/29/18 16:50 17:37 19:37 WBC RBC Hgb Hct RDW Plt Count Lymph % (Auto) [place] % (Auto) Lymph # [place] # Seg Neutrophils % PT INR D-Dimer Heparin Anti-Xa Level POC ABG pH POC ABG pCO2 POC ABG pO2 248 H Sodium Potassium Chloride Carbon Dioxide 21 L BUN 21 H Creatinine Glucose 123 H POC Glucose 113 H Lactic Acid Calcium Phosphorus Iron TIBC Total Bilirubin AST ALT Lactate Dehydrogenase Total Creatine Kinase CK-MB (CK-2) CK-MB (CK-2) Rel Index Troponin T C-Reactive Protein NT-Pro-B Natriuret Pep Total Protein Albumin HDL Cholesterol Folate Ur Specific [place] Urine WBC (Auto) Crossmatch 12/29/18 12/29/18 12/30/18 20:10 21:36 04:43 WBC RBC Hgb Hct RDW Plt Count Lymph % (Auto) [place] % (Auto) Lymph # [place] # Seg Neutrophils % PT INR D-Dimer Heparin Anti-Xa Level POC ABG pH 7.327 L POC ABG pCO2 POC ABG pO2 79 L Sodium Potassium Chloride Carbon Dioxide BUN Creatinine Glucose POC Glucose Lactic Acid 2.70 H* 2.80 H* Calcium Phosphorus Iron TIBC Total Bilirubin AST ALT Lactate Dehydrogenase Total Creatine Kinase CK-MB (CK-2) CK-MB (CK-2) Rel Index Troponin T C-Reactive Protein NT-Pro-B Natriuret Pep Total Protein Albumin HDL Cholesterol Folate Ur Specific [place] Urine WBC (Auto) Crossmatch 12/30/18 12/30/18 12/30/18 11:42 11:42 13:43 WBC RBC Hgb Hct RDW 16.4 H Plt Count 125 L Lymph % (Auto) [place] % (Auto) Lymph # [place] # Seg Neutrophils % PT INR D-Dimer Heparin Anti-Xa Level POC ABG pH 7.225 L POC ABG pCO2 54.7 H POC ABG pO2 Sodium Potassium Chloride 108.8 H Carbon Dioxide BUN Creatinine Glucose 105 H POC Glucose Lactic Acid Calcium 8.2 L Phosphorus Iron TIBC Total Bilirubin AST ALT Lactate Dehydrogenase Total Creatine Kinase CK-MB (CK-2) CK-MB (CK-2) Rel Index Troponin T C-Reactive Protein NT-Pro-B Natriuret Pep Total Protein Albumin HDL Cholesterol Folate Ur Specific [place] Urine WBC (Auto) Crossmatch 12/30/18 12/30/18 12/30/18 13:53 18:17 18:17 WBC RBC Hgb Hct RDW Plt Count 114 L Lymph % (Auto) [place] % (Auto) Lymph # [place] # Seg Neutrophils % PT 16.5 H INR 1.25 H D-Dimer Heparin Anti-Xa Level POC ABG pH POC ABG pCO2 POC ABG pO2 Sodium Potassium Chloride Carbon Dioxide BUN Creatinine Glucose POC Glucose Lactic Acid Calcium Phosphorus Iron TIBC Total Bilirubin AST ALT Lactate Dehydrogenase Total Creatine Kinase CK-MB (CK-2) CK-MB (CK-2) Rel Index Troponin T 0.060 H D C-Reactive Protein NT-Pro-B Natriuret Pep Total Protein Albumin HDL Cholesterol Folate Ur Specific [place] Urine WBC (Auto) Crossmatch 12/31/18 12/31/18 12/31/18 00:31 04:39 05:30 WBC RBC Hgb 10.9 L Hct 32.4 L RDW 16.1 H Plt Count 97 L Lymph % (Auto) [place] % (Auto) Lymph # [place] # Seg Neutrophils % PT INR D-Dimer Heparin Anti-Xa Level 0.12 L POC ABG pH 7.337 L POC ABG pCO2 POC ABG pO2 Sodium Potassium Chloride Carbon Dioxide BUN Creatinine Glucose POC Glucose Lactic Acid Calcium Phosphorus Iron TIBC Total Bilirubin AST ALT Lactate Dehydrogenase Total Creatine Kinase CK-MB (CK-2) CK-MB (CK-2) Rel Index Troponin T C-Reactive Protein NT-Pro-B Natriuret Pep Total Protein Albumin HDL Cholesterol Folate Ur Specific [place] Urine WBC (Auto) Crossmatch 12/31/18 12/31/18 12/31/18 05:30 16:27 18:40 WBC RBC Hgb Hct RDW Plt Count Lymph % (Auto) [place] % (Auto) Lymph # [place] # Seg Neutrophils % PT INR D-Dimer Heparin Anti-Xa Level POC ABG pH 7.246 L POC ABG pCO2 52.6 H POC ABG pO2 Sodium Potassium Chloride 110.5 H Carbon Dioxide BUN Creatinine Glucose 107 H POC Glucose 109 H Lactic Acid Calcium 8.2 L Phosphorus Iron TIBC Total Bilirubin 1.30 H AST ALT Lactate Dehydrogenase Total Creatine Kinase CK-MB (CK-2) CK-MB (CK-2) Rel Index Troponin T C-Reactive Protein NT-Pro-B Natriuret Pep Total Protein 5.1 L Albumin 2.3 L HDL Cholesterol Folate Ur Specific [place] Urine WBC (Auto) Crossmatch 12/31/18 01/01/19 01/01/19 21:37 03:05 04:25 WBC RBC Hgb Hct RDW Plt Count Lymph % (Auto) [place] % (Auto) Lymph # [place] # Seg Neutrophils % PT INR D-Dimer Heparin Anti-Xa Level POC ABG pH 7.278 L POC ABG pCO2 50.6 H POC ABG pO2 111 H Sodium Potassium Chloride Carbon Dioxide BUN Creatinine Glucose POC Glucose 108 H 147 H Lactic Acid Calcium Phosphorus Iron TIBC Total Bilirubin AST ALT Lactate Dehydrogenase Total Creatine Kinase CK-MB (CK-2) CK-MB (CK-2) Rel Index Troponin T C-Reactive Protein NT-Pro-B Natriuret Pep Total Protein Albumin HDL Cholesterol Folate Ur Specific [place] Urine WBC (Auto) Crossmatch 01/01/19 01/01/19 01/01/19 04:42 04:42 06:32 WBC 3.9 L RBC 3.54 L Hgb 10.7 L Hct 31.6 L RDW 16.3 H Plt Count 83 L Lymph % (Auto) [place] % (Auto) Lymph # [place] # Seg Neutrophils % PT INR D-Dimer Heparin Anti-Xa Level POC ABG pH POC ABG pCO2 POC ABG pO2 Sodium Potassium Chloride 109.8 H Carbon Dioxide BUN Creatinine Glucose 134 H POC Glucose 143 H Lactic Acid Calcium 8.1 L Phosphorus Iron TIBC Total Bilirubin AST ALT Lactate Dehydrogenase Total Creatine Kinase CK-MB (CK-2) CK-MB (CK-2) Rel Index Troponin T C-Reactive Protein NT-Pro-B Natriuret Pep Total Protein 4.9 L Albumin 2.3 L HDL Cholesterol Folate Ur Specific [place] Urine WBC (Auto) Crossmatch 01/01/19 01/01/19 01/01/19 07:33 11:37 13:55 WBC RBC Hgb Hct RDW Plt Count Lymph % (Auto) [place] % (Auto) Lymph # [place] # Seg Neutrophils % PT INR D-Dimer Heparin Anti-Xa Level POC ABG pH 7.242 L POC ABG pCO2 55.3 H POC ABG pO2 Sodium Potassium Chloride Carbon Dioxide BUN Creatinine Glucose POC Glucose 137 H 133 H Lactic Acid Calcium Phosphorus Iron TIBC Total Bilirubin AST ALT Lactate Dehydrogenase Total Creatine Kinase CK-MB (CK-2) CK-MB (CK-2) Rel Index Troponin T C-Reactive Protein NT-Pro-B Natriuret Pep Total Protein Albumin HDL Cholesterol Folate Ur Specific [place] Urine WBC (Auto) Crossmatch 01/01/19 01/01/19 01/01/19 15:44 16:51 21:35 WBC RBC Hgb Hct RDW Plt Count Lymph % (Auto) [place] % (Auto) Lymph # [place] # Seg Neutrophils % PT INR D-Dimer Heparin Anti-Xa Level POC ABG pH 7.298 L POC ABG pCO2 50.6 H POC ABG pO2 Sodium Potassium Chloride Carbon Dioxide BUN Creatinine Glucose POC Glucose 139 H 106 H Lactic Acid Calcium Phosphorus Iron TIBC Total Bilirubin AST ALT Lactate Dehydrogenase Total Creatine Kinase CK-MB (CK-2) CK-MB (CK-2) Rel Index Troponin T C-Reactive Protein NT-Pro-B Natriuret Pep Total Protein Albumin HDL Cholesterol Folate Ur Specific [place] Urine WBC (Auto) Crossmatch 01/02/19 01/02/19 01/02/19 03:13 04:40 05:09 WBC 3.9 L RBC Hgb Hct RDW 16.1 H Plt Count 94 L Lymph % (Auto) 7.5 L [place] % (Auto) 14.2 H Lymph # 0.3 L [place] # Seg Neutrophils % 76.5 H PT INR D-Dimer Heparin Anti-Xa Level POC ABG pH 7.206 L POC ABG pCO2 65.8 H POC ABG pO2 62 L Sodium Potassium Chloride Carbon Dioxide BUN Creatinine Glucose POC Glucose 124 H Lactic Acid Calcium Phosphorus Iron TIBC Total Bilirubin AST ALT Lactate Dehydrogenase Total Creatine Kinase CK-MB (CK-2) CK-MB (CK-2) Rel Index Troponin T C-Reactive Protein NT-Pro-B Natriuret Pep Total Protein Albumin HDL Cholesterol Folate Ur Specific [place] Urine WBC (Auto) Crossmatch 01/02/19 01/02/19 01/02/19 05:09 05:09 05:32 WBC RBC Hgb Hct RDW Plt Count Lymph % (Auto) [place] % (Auto) Lymph # [place] # Seg Neutrophils % PT INR D-Dimer Heparin Anti-Xa Level POC ABG pH POC ABG pCO2 POC ABG pO2 Sodium Potassium Chloride 107.4 H Carbon Dioxide BUN Creatinine Glucose 133 H POC Glucose 130 H Lactic Acid Calcium 8.3 L Phosphorus Iron 34 L TIBC 231 L Total Bilirubin AST ALT Lactate Dehydrogenase Total Creatine Kinase CK-MB (CK-2) CK-MB (CK-2) Rel Index Troponin T C-Reactive Protein NT-Pro-B Natriuret Pep Total Protein Albumin HDL Cholesterol Folate 6.01 L Ur Specific [place] Urine WBC (Auto) Crossmatch 01/02/19 01/02/19 01/02/19 10:25 11:21 11:42 WBC RBC Hgb Hct RDW Plt Count Lymph % (Auto) [place] % (Auto) Lymph # [place] # Seg Neutrophils % PT INR D-Dimer Heparin Anti-Xa Level POC ABG pH 7.318 L POC ABG pCO2 56.7 H POC ABG pO2 215 H Sodium Potassium Chloride Carbon Dioxide BUN Creatinine Glucose POC Glucose 108 H 152 H Lactic Acid Calcium Phosphorus Iron TIBC Total Bilirubin AST ALT Lactate Dehydrogenase Total Creatine Kinase CK-MB (CK-2) CK-MB (CK-2) Rel Index Troponin T C-Reactive Protein NT-Pro-B Natriuret Pep Total Protein Albumin HDL Cholesterol Folate Ur Specific [place] Urine WBC (Auto) Crossmatch 01/02/19 01/03/19 01/03/19 17:37 04:28 10:57 WBC RBC Hgb 11.6 L Hct RDW Plt Count 105 L Lymph % (Auto) [place] % (Auto) Lymph # [place] # Seg Neutrophils % PT INR D-Dimer Heparin Anti-Xa Level POC ABG pH POC ABG pCO2 POC ABG pO2 Sodium Potassium Chloride Carbon Dioxide BUN Creatinine Glucose 111 H POC Glucose 107 H Lactic Acid Calcium Phosphorus Iron TIBC Total Bilirubin AST ALT Lactate Dehydrogenase Total Creatine Kinase CK-MB (CK-2) CK-MB (CK-2) Rel Index Troponin T C-Reactive Protein NT-Pro-B Natriuret Pep Total Protein Albumin HDL Cholesterol Folate Ur Specific [place] Urine WBC (Auto) Crossmatch 01/03/19 01/03/19 01/03/19 15:16 17:33 20:35 WBC RBC Hgb Hct RDW Plt Count Lymph % (Auto) [place] % (Auto) Lymph # [place] # Seg Neutrophils % PT INR D-Dimer Heparin Anti-Xa Level POC ABG pH POC ABG pCO2 POC ABG pO2 Sodium Potassium Chloride Carbon Dioxide BUN Creatinine Glucose POC Glucose 135 H 166 H 114 H Lactic Acid Calcium Phosphorus Iron TIBC Total Bilirubin AST ALT Lactate Dehydrogenase Total Creatine Kinase CK-MB (CK-2) CK-MB (CK-2) Rel Index Troponin T C-Reactive Protein NT-Pro-B Natriuret Pep Total Protein Albumin HDL Cholesterol Folate Ur Specific [place] Urine WBC (Auto) Crossmatch 01/04/19 01/04/19 01/04/19 01:32 04:47 04:47 WBC 4.2 L RBC Hgb 11.5 L Hct 34.9 L RDW 15.8 H Plt Count 119 L Lymph % (Auto) [place] % (Auto) Lymph # [place] # Seg Neutrophils % PT INR D-Dimer Heparin Anti-Xa Level POC ABG pH POC ABG pCO2 POC ABG pO2 Sodium Potassium 3.3 L Chloride Carbon Dioxide BUN Creatinine Glucose 110 H POC Glucose 114 H Lactic Acid Calcium 8.3 L Phosphorus Iron TIBC Total Bilirubin AST ALT Lactate Dehydrogenase Total Creatine Kinase CK-MB (CK-2) CK-MB (CK-2) Rel Index Troponin T C-Reactive Protein NT-Pro-B Natriuret Pep Total Protein Albumin HDL Cholesterol Folate Ur Specific [place] Urine WBC (Auto) Crossmatch 01/04/19 01/04/19 01/04/19 08:51 11:41 16:25 WBC RBC Hgb Hct RDW Plt Count Lymph % (Auto) [place] % (Auto) Lymph # [place] # Seg Neutrophils % PT INR D-Dimer Heparin Anti-Xa Level POC ABG pH POC ABG pCO2 POC ABG pO2 Sodium Potassium Chloride Carbon Dioxide BUN Creatinine Glucose POC Glucose 122 H 146 H 142 H Lactic Acid Calcium Phosphorus Iron TIBC Total Bilirubin AST ALT Lactate Dehydrogenase Total Creatine Kinase CK-MB (CK-2) CK-MB (CK-2) Rel Index Troponin T C-Reactive Protein NT-Pro-B Natriuret Pep Total Protein Albumin HDL Cholesterol Folate Ur Specific [place] Urine WBC (Auto) Crossmatch 01/04/19 01/05/19 01/05/19 21:16 04:41 04:41 WBC RBC Hgb Hct RDW 15.9 H Plt Count 126 L Lymph % (Auto) [place] % (Auto) Lymph # [place] # Seg Neutrophils % PT INR D-Dimer Heparin Anti-Xa Level POC ABG pH POC ABG pCO2 POC ABG pO2 Sodium Potassium 3.4 L Chloride Carbon Dioxide BUN Creatinine Glucose 128 H POC Glucose 140 H Lactic Acid Calcium Phosphorus Iron TIBC Total Bilirubin AST ALT Lactate Dehydrogenase Total Creatine Kinase CK-MB (CK-2) CK-MB (CK-2) Rel Index Troponin T C-Reactive Protein NT-Pro-B Natriuret Pep Total Protein Albumin HDL Cholesterol Folate Ur Specific [place] Urine WBC (Auto) Crossmatch 01/05/19 01/05/19 01/05/19 08:10 11:52 17:24 WBC RBC Hgb Hct RDW Plt Count Lymph % (Auto) [place] % (Auto) Lymph # [place] # Seg Neutrophils % PT INR D-Dimer Heparin Anti-Xa Level POC ABG pH POC ABG pCO2 POC ABG pO2 Sodium Potassium Chloride Carbon Dioxide BUN Creatinine Glucose POC Glucose 134 H 178 H 124 H Lactic Acid Calcium Phosphorus Iron TIBC Total Bilirubin AST ALT Lactate Dehydrogenase Total Creatine Kinase CK-MB (CK-2) CK-MB (CK-2) Rel Index Troponin T C-Reactive Protein NT-Pro-B Natriuret Pep Total Protein Albumin HDL Cholesterol Folate Ur Specific [place] Urine WBC (Auto) Crossmatch 01/05/19 01/06/19 01/06/19 21:36 03:12 03:12 WBC RBC Hgb Hct RDW 16.7 H Plt Count 138 L Lymph % (Auto) [place] % (Auto) Lymph # [place] # Seg Neutrophils % PT INR D-Dimer Heparin Anti-Xa Level POC ABG pH POC ABG pCO2 POC ABG pO2 Sodium Potassium 3.4 L Chloride Carbon Dioxide BUN Creatinine Glucose 112 H POC Glucose 119 H Lactic Acid Calcium Phosphorus Iron TIBC Total Bilirubin AST ALT Lactate Dehydrogenase Total Creatine Kinase CK-MB (CK-2) CK-MB (CK-2) Rel Index Troponin T C-Reactive Protein NT-Pro-B Natriuret Pep Total Protein Albumin HDL Cholesterol Folate Ur Specific [place] Urine WBC (Auto) Crossmatch 01/06/19 01/06/19 01/06/19 08:11 10:22 10:22 WBC RBC Hgb Hct RDW 16.7 H Plt Count Lymph % (Auto) [place] % (Auto) Lymph # [place] # Seg Neutrophils % PT INR D-Dimer Heparin Anti-Xa Level POC ABG pH POC ABG pCO2 POC ABG pO2 Sodium Potassium 3.5 L Chloride Carbon Dioxide BUN Creatinine Glucose 151 H POC Glucose 112 H Lactic Acid Calcium Phosphorus Iron TIBC Total Bilirubin AST ALT Lactate Dehydrogenase Total Creatine Kinase CK-MB (CK-2) CK-MB (CK-2) Rel Index Troponin T C-Reactive Protein NT-Pro-B Natriuret Pep Total Protein Albumin HDL Cholesterol Folate Ur Specific [place] Urine WBC (Auto) Crossmatch 01/06/19 01/06/19 01/06/19 11:51 17:04 17:57 WBC RBC Hgb Hct RDW Plt Count Lymph % (Auto) [place] % (Auto) Lymph # [place] # Seg Neutrophils % PT INR D-Dimer Heparin Anti-Xa Level POC ABG pH POC ABG pCO2 POC ABG pO2 Sodium Potassium Chloride Carbon Dioxide BUN Creatinine Glucose POC Glucose 148 H 135 H Lactic Acid Calcium Phosphorus Iron TIBC Total Bilirubin AST ALT Lactate Dehydrogenase Total Creatine Kinase CK-MB (CK-2) CK-MB (CK-2) Rel Index Troponin T C-Reactive Protein NT-Pro-B Natriuret Pep 4783 H Total Protein Albumin HDL Cholesterol Folate Ur Specific [place] Urine WBC (Auto) Crossmatch 01/06/19 01/07/19 01/07/19 20:59 08:35 10:34 WBC RBC Hgb Hct RDW Plt Count Lymph % (Auto) [place] % (Auto) Lymph # [place] # Seg Neutrophils % PT INR D-Dimer Heparin Anti-Xa Level POC ABG pH POC ABG pCO2 POC ABG pO2 Sodium Potassium Chloride Carbon Dioxide BUN Creatinine Glucose 129 H POC Glucose 115 H 143 H Lactic Acid Calcium Phosphorus Iron TIBC Total Bilirubin AST ALT Lactate Dehydrogenase Total Creatine Kinase CK-MB (CK-2) CK-MB (CK-2) Rel Index Troponin T C-Reactive Protein NT-Pro-B Natriuret Pep Total Protein Albumin HDL Cholesterol Folate Ur Specific [place] Urine WBC (Auto) Crossmatch 01/07/19 01/07/19 01/07/19 11:31 16:16 20:49 WBC RBC Hgb Hct RDW Plt Count Lymph % (Auto) [place] % (Auto) Lymph # [place] # Seg Neutrophils % PT INR D-Dimer Heparin Anti-Xa Level POC ABG pH POC ABG pCO2 POC ABG pO2 Sodium Potassium Chloride Carbon Dioxide BUN Creatinine Glucose POC Glucose 144 H 133 H 138 H Lactic Acid Calcium Phosphorus Iron TIBC Total Bilirubin AST ALT Lactate Dehydrogenase Total Creatine Kinase CK-MB (CK-2) CK-MB (CK-2) Rel Index Troponin T C-Reactive Protein NT-Pro-B Natriuret Pep Total Protein Albumin HDL Cholesterol Folate Ur Specific [place] Urine WBC (Auto) Crossmatch 01/08/19 01/08/19 01/08/19 00:19 05:11 05:11 WBC RBC Hgb Hct RDW 16.9 H Plt Count Lymph % (Auto) [place] % (Auto) Lymph # [place] # Seg Neutrophils % PT INR D-Dimer Heparin Anti-Xa Level POC ABG pH POC ABG pCO2 POC ABG pO2 Sodium Potassium Chloride Carbon Dioxide BUN Creatinine Glucose 144 H POC Glucose 129 H Lactic Acid Calcium Phosphorus Iron TIBC Total Bilirubin AST ALT Lactate Dehydrogenase Total Creatine Kinase CK-MB (CK-2) CK-MB (CK-2) Rel Index Troponin T C-Reactive Protein NT-Pro-B Natriuret Pep Total Protein Albumin HDL Cholesterol Folate Ur Specific [place] Urine WBC (Auto) Crossmatch 01/08/19 01/08/19 01/08/19 07:32 11:56 16:40 WBC RBC Hgb Hct RDW Plt Count Lymph % (Auto) [place] % (Auto) Lymph # [place] # Seg Neutrophils % PT INR D-Dimer Heparin Anti-Xa Level POC ABG pH POC ABG pCO2 POC ABG pO2 Sodium Potassium Chloride Carbon Dioxide BUN Creatinine Glucose POC Glucose 134 H 162 H 166 H Lactic Acid Calcium Phosphorus Iron TIBC Total Bilirubin AST ALT Lactate Dehydrogenase Total Creatine Kinase CK-MB (CK-2) CK-MB (CK-2) Rel Index Troponin T C-Reactive Protein NT-Pro-B Natriuret Pep Total Protein Albumin HDL Cholesterol Folate Ur Specific [place] Urine WBC (Auto) Crossmatch 01/08/19 01/09/19 01/09/19 21:36 08:42 11:41 WBC RBC Hgb Hct RDW Plt Count Lymph % (Auto) [place] % (Auto) Lymph # [place] # Seg Neutrophils % PT INR D-Dimer Heparin Anti-Xa Level POC ABG pH POC ABG pCO2 POC ABG pO2 Sodium Potassium Chloride Carbon Dioxide BUN Creatinine Glucose POC Glucose 166 H 114 H 136 H Lactic Acid Calcium Phosphorus Iron TIBC Total Bilirubin AST ALT Lactate Dehydrogenase Total Creatine Kinase CK-MB (CK-2) CK-MB (CK-2) Rel Index Troponin T C-Reactive Protein NT-Pro-B Natriuret Pep Total Protein Albumin HDL Cholesterol Folate Ur Specific [place] Urine WBC (Auto) Crossmatch 01/09/19 01/09/19 01/10/19 16:06 21:59 11:46 WBC RBC Hgb Hct RDW Plt Count Lymph % (Auto) [place] % (Auto) Lymph # [place] # Seg Neutrophils % PT INR D-Dimer Heparin Anti-Xa Level POC ABG pH POC ABG pCO2 POC ABG pO2 Sodium Potassium Chloride Carbon Dioxide BUN Creatinine Glucose POC Glucose 130 H 159 H 126 H Lactic Acid Calcium Phosphorus Iron TIBC Total Bilirubin AST ALT Lactate Dehydrogenase Total Creatine Kinase CK-MB (CK-2) CK-MB (CK-2) Rel Index Troponin T C-Reactive Protein NT-Pro-B Natriuret Pep Total Protein Albumin HDL Cholesterol Folate Ur Specific [place] Urine WBC (Auto) Crossmatch 01/10/19 01/10/19 01/11/19 16:45 22:41 04:09 WBC 4.4 L RBC Hgb Hct RDW 16.5 H Plt Count 131 L Lymph % (Auto) [place] % (Auto) 11.8 H Lymph # 0.7 L [place] # Seg Neutrophils % PT INR D-Dimer Heparin Anti-Xa Level POC ABG pH POC ABG pCO2 POC ABG pO2 Sodium Potassium Chloride Carbon Dioxide BUN Creatinine Glucose POC Glucose 136 H 132 H Lactic Acid Calcium Phosphorus Iron TIBC Total Bilirubin AST ALT Lactate Dehydrogenase Total Creatine Kinase CK-MB (CK-2) CK-MB (CK-2) Rel Index Troponin T C-Reactive Protein NT-Pro-B Natriuret Pep Total Protein Albumin HDL Cholesterol Folate Ur Specific [place] Urine WBC (Auto) Crossmatch 01/11/19 01/11/19 01/11/19 04:09 07:31 11:54 WBC RBC Hgb Hct RDW Plt Count Lymph % (Auto) [place] % (Auto) Lymph # [place] # Seg Neutrophils % PT INR D-Dimer Heparin Anti-Xa Level POC ABG pH POC ABG pCO2 POC ABG pO2 Sodium 146 H Potassium 3.4 L D Chloride 96.9 L Carbon Dioxide 40 H D BUN Creatinine 0.7 L Glucose 110 H POC Glucose 116 H 138 H Lactic Acid Calcium Phosphorus 2.30 L Iron TIBC Total Bilirubin AST ALT Lactate Dehydrogenase Total Creatine Kinase CK-MB (CK-2) CK-MB (CK-2) Rel Index Troponin T C-Reactive Protein NT-Pro-B Natriuret Pep Total Protein 5.4 L Albumin 2.6 L HDL Cholesterol Folate Ur Specific [place] Urine WBC (Auto) Crossmatch Allied health notes reviewed: nursing
[2019-01-12] MEDS: DUONEB *Not for PRN Use IH SCH ×4 (01:27→21:13)
[2019-01-12] MEDS: HALDOL IM PRN (02:21)
--- NOTE | 2019-01-12 07:55 | Progress Note ---
Assessment and Plan Acute Hypoxic Respiratory failure- s/p extubated 01/01, now on supplemental oxygen NC at 3L Seizure Disorder DVT bilateral lower extremity Sepsis Right sided Pneumonia Large Right sided Pleural effusion- s/p chest tube Shock syndrome questionable septic versus cardiogenic Hypokalemia Morbid Obesity Thrombocytopenia Non ST elevated ND type II Presumed ischemic cardiomyopathy status post CABG Acute metabolic encephalopathy, much improved Hyponatremia Hypocalcemia History of CVA 2 years ago -wean FIO2 for O2 sats 88-90% -PT/OT/Mobility -ABG prn -Bronchodilators -Resume plavix, no further interventions planned -Gentle diuresis while monitoring renal function, hemodynamics and electrolyte profile - continue chronic home medications per attending - continue accuchecks with glycemic control for target glucose of 140-180 mg/dL - Maintenance of sleep-wake cycle - Influenza and pneumonia vaccination per protocol -Discharge planning. Discussed with hospitalist service PROGNOSIS: FAIR CONDITION: IMPROVING CODE STATUS: FULL CODE Subjective Date of service: 01/12/19 Principal diagnosis: dvt and low plt Interval history: Acute hypoxemic hypercapnic respiratory failure s/p MVS; Bilateral pleural effusions, complex looking on the right; Right lung complete atelectasis; Right pneumonia (appears to be community-acquired); Severe sepsis with shock, Seen and examined at bedside; 24hour events reviewed; nursing and respiratory care staff consulted; no adverse overnight events reported to me; he is on oxygen therapy at 35% venturi mask; no N/V/F/C; no fevers, no nausea or vomiting, BIPAP at night. CTscan and CXR films reviewed, not enough pleural fluid for any further thoracentesis. Radiologist is of the opinion that the density seen in the pleural space is adipose tissue Objective Vital Signs - 12hr 01/11/19 01/11/19 01/11/19 20:00 20:21 22:00 Temperature 97.6 F 97.6 F Pulse Rate 73 Pulse Rate [ Bilateral] Pulse Rate [ 73 Right Radial] Respiratory 20 20 20 Rate Respiratory Rate [Bilateral ] Blood Pressure 97/61 Blood Pressure 97/61 [Left] Blood Pressure 97/61 [Right] O2 Sat by Pulse 96 96 Oximetry 01/11/19 01/11/19 01/12/19 22:08 22:29 01:27 Temperature Pulse Rate 74 67 Pulse Rate [ 74 Bilateral] Pulse Rate [ Right Radial] Respiratory 25 H Rate Respiratory 20 Rate [Bilateral ] Blood Pressure 97/61 Blood Pressure [Left] Blood Pressure [Right] O2 Sat by Pulse 97 Oximetry 01/12/19 01/12/19 01/12/19 01:28 02:00 02:23 Temperature 98.8 F Pulse Rate Pulse Rate [ 76 Bilateral] Pulse Rate [ Right Radial] Respiratory 22 Rate Respiratory 20 Rate [Bilateral ] Blood Pressure 125/69 Blood Pressure [Left] Blood Pressure [Right] O2 Sat by Pulse 91 Oximetry 01/12/19 01/12/19 02:31 07:25 Temperature 97.5 F L Pulse Rate 90 85 Pulse Rate [ Bilateral] Pulse Rate [ Right Radial] Respiratory 22 Rate Respiratory Rate [Bilateral ] Blood Pressure 146/80 Blood Pressure [Left] Blood Pressure [Right] O2 Sat by Pulse 97 Oximetry Constitutional: alert, appears uncomfortable, other (elderly looking morbidly obese CM normocephalic and withmildly increased work of breathing at rest) Eyes: non-icteric ENT: oropharynx moist Neck: supple, no lymphadenopathy, no JVD, other (large neck circumference) Effort: mildly labored Ascultation: Bilateral: diminished breath sounds, rhonchi (bases), other (Right chest tube) Percussion: Bilateral: not dull Cardiovascular: regular rate and rhythm, other (No R/M) Gastrointestinal: normoactive bowel sounds, soft, non-tender, non-distended Integumentary: normal Extremities: no cyanosis, pink and warm, pulses normal, no ischemia or petechiae, edema (1+) Neurologic: normal mental status, non-focal exam (grossly), pupils equal and round, CN II-XII normal, motor strength normal and Psychiatric: mood appropriate, affect normal CBC and BMP: 01/11/19 04:09 01/13/19 10:04 ABG, PT/INR, D-dimer: ABG POC ABG pH 7.318 (7.35-7.45) L 01/02/19 11:21 POC ABG pCO2 56.7 (35-45) H 01/02/19 11:21 POC ABG pO2 215 (80-105) H 01/02/19 11:21 POC ABG HCO3 29.1 (22-26 mml/L) 01/02/19 11:21 POC ABG Total CO2 31 (23-27mmol/L) 01/02/19 11:21 POC ABG O2 Sat 100 01/02/19 11:21 PT/INR, D-dimer PT 16.5 Sec. (12.2-14.9) H 12/30/18 18:17 INR 1.25 (0.87-1.13) H 12/30/18 18:17 D-Dimer 815.50 ng/mlDDU (0-234) H 12/28/18 23:58 Abnormal lab findings: Abnormal Labs 12/28/18 12/28/18 12/28/18 23:58 23:58 23:58 WBC RBC 2.24 L Hgb 6.7 L Hct 20.9 L RDW 16.4 H Plt Count 99 L Lymph % (Auto) 10.7 L [place] % (Auto) 7.9 H Lymph # 0.6 L [place] # Seg Neutrophils % 80.7 H PT INR D-Dimer 815.50 H Heparin Anti-Xa Level POC ABG pH POC ABG pCO2 POC ABG pO2 Sodium 148 H Potassium 2.3 L* Chloride 128.4 H Carbon Dioxide 12 L BUN Creatinine 0.4 L Glucose POC Glucose Lactic Acid Calcium 5.0 L* Phosphorus Iron TIBC Total Bilirubin AST ALT < 5 L Lactate Dehydrogenase Total Creatine Kinase 44 L CK-MB (CK-2) CK-MB (CK-2) Rel Index 4.3 H Troponin T C-Reactive Protein NT-Pro-B Natriuret Pep Total Protein 2.3 L Albumin 1.1 L HDL Cholesterol Folate Ur Specific [place] Urine WBC (Auto) Crossmatch 12/28/18 12/29/18 12/29/18 23:58 00:27 01:53 WBC RBC Hgb Hct RDW Plt Count Lymph % (Auto) [place] % (Auto) Lymph # [place] # Seg Neutrophils % PT INR D-Dimer Heparin Anti-Xa Level POC ABG pH 7.169 L POC ABG pCO2 POC ABG pO2 Sodium Potassium Chloride Carbon Dioxide BUN Creatinine Glucose POC Glucose Lactic Acid Calcium Phosphorus Iron TIBC Total Bilirubin AST ALT Lactate Dehydrogenase Total Creatine Kinase CK-MB (CK-2) CK-MB (CK-2) Rel Index Troponin T C-Reactive Protein NT-Pro-B Natriuret Pep 1209 H Total Protein Albumin HDL Cholesterol Folate Ur Specific [place] Urine WBC (Auto) Crossmatch See Detail 12/29/18 12/29/18 12/29/18 03:00 05:02 08:34 WBC RBC Hgb Hct RDW Plt Count Lymph % (Auto) [place] % (Auto) Lymph # [place] # Seg Neutrophils % PT INR D-Dimer Heparin Anti-Xa Level POC ABG pH 7.225 L POC ABG pCO2 57.9 H POC ABG pO2 Sodium Potassium Chloride Carbon Dioxide BUN Creatinine Glucose POC Glucose Lactic Acid Calcium Phosphorus Iron TIBC Total Bilirubin AST ALT Lactate Dehydrogenase Total Creatine Kinase 344 H CK-MB (CK-2) 7.9 H CK-MB (CK-2) Rel Index Troponin T 0.103 H* D C-Reactive Protein NT-Pro-B Natriuret Pep Total Protein Albumin HDL Cholesterol 34 L Folate Ur Specific [place] 1.033 H Urine WBC (Auto) 31.0 H Crossmatch 12/29/18 12/29/18 12/29/18 08:34 08:53 12:51 WBC RBC Hgb Hct RDW Plt Count Lymph % (Auto) [place] % (Auto) Lymph # [place] # Seg Neutrophils % PT INR D-Dimer Heparin Anti-Xa Level POC ABG pH POC ABG pCO2 POC ABG pO2 Sodium Potassium 5.7 H D Chloride Carbon Dioxide BUN 21 H Creatinine Glucose 124 H POC Glucose 119 H Lactic Acid Calcium Phosphorus Iron TIBC Total Bilirubin AST ALT Lactate Dehydrogenase Total Creatine Kinase 837 H CK-MB (CK-2) 10.5 H CK-MB (CK-2) Rel Index Troponin T 0.084 H C-Reactive Protein NT-Pro-B Natriuret Pep Total Protein Albumin HDL Cholesterol Folate Ur Specific [place] Urine WBC (Auto) Crossmatch 12/29/18 12/29/18 12/29/18 12:51 12:51 15:02 WBC RBC Hgb Hct RDW 16.0 H Plt Count Lymph % (Auto) [place] % (Auto) 13.3 H Lymph # [place] # 1.4 H Seg Neutrophils % PT INR D-Dimer Heparin Anti-Xa Level POC ABG pH POC ABG pCO2 POC ABG pO2 Sodium Potassium 5.4 H Chloride Carbon Dioxide 19 L 17 L BUN 21 H 21 H Creatinine Glucose 116 H 115 H POC Glucose Lactic Acid Calcium Phosphorus Iron TIBC Total Bilirubin 1.50 H AST 43 H ALT Lactate Dehydrogenase 405 H Total Creatine Kinase CK-MB (CK-2) CK-MB (CK-2) Rel Index Troponin T C-Reactive Protein NT-Pro-B Natriuret Pep Total Protein 6.2 L D Albumin 3.1 L HDL Cholesterol Folate Ur Specific [place] Urine WBC (Auto) Crossmatch 12/29/18 12/29/18 12/29/18 15:03 16:46 16:46 WBC RBC Hgb Hct RDW Plt Count Lymph % (Auto) [place] % (Auto) Lymph # [place] # Seg Neutrophils % PT INR D-Dimer Heparin Anti-Xa Level POC ABG pH POC ABG pCO2 POC ABG pO2 Sodium Potassium Chloride Carbon Dioxide BUN Creatinine Glucose POC Glucose 121 H Lactic Acid 2.70 H* Calcium Phosphorus Iron TIBC Total Bilirubin AST ALT Lactate Dehydrogenase Total Creatine Kinase CK-MB (CK-2) CK-MB (CK-2) Rel Index Troponin T C-Reactive Protein 2.80 H NT-Pro-B Natriuret Pep Total Protein Albumin HDL Cholesterol Folate Ur Specific [place] Urine WBC (Auto) Crossmatch 12/29/18 12/29/18 12/29/18 16:50 17:37 19:37 WBC RBC Hgb Hct RDW Plt Count Lymph % (Auto) [place] % (Auto) Lymph # [place] # Seg Neutrophils % PT INR D-Dimer Heparin Anti-Xa Level POC ABG pH POC ABG pCO2 POC ABG pO2 248 H Sodium Potassium Chloride Carbon Dioxide 21 L BUN 21 H Creatinine Glucose 123 H POC Glucose 113 H Lactic Acid Calcium Phosphorus Iron TIBC Total Bilirubin AST ALT Lactate Dehydrogenase Total Creatine Kinase CK-MB (CK-2) CK-MB (CK-2) Rel Index Troponin T C-Reactive Protein NT-Pro-B Natriuret Pep Total Protein Albumin HDL Cholesterol Folate Ur Specific [place] Urine WBC (Auto) Crossmatch 12/29/18 12/29/18 12/30/18 20:10 21:36 04:43 WBC RBC Hgb Hct RDW Plt Count Lymph % (Auto) [place] % (Auto) Lymph # [place] # Seg Neutrophils % PT INR D-Dimer Heparin Anti-Xa Level POC ABG pH 7.327 L POC ABG pCO2 POC ABG pO2 79 L Sodium Potassium Chloride Carbon Dioxide BUN Creatinine Glucose POC Glucose Lactic Acid 2.70 H* 2.80 H* Calcium Phosphorus Iron TIBC Total Bilirubin AST ALT Lactate Dehydrogenase Total Creatine Kinase CK-MB (CK-2) CK-MB (CK-2) Rel Index Troponin T C-Reactive Protein NT-Pro-B Natriuret Pep Total Protein Albumin HDL Cholesterol Folate Ur Specific [place] Urine WBC (Auto) Crossmatch 12/30/18 12/30/18 12/30/18 11:42 11:42 13:43 WBC RBC Hgb Hct RDW 16.4 H Plt Count 125 L Lymph % (Auto) [place] % (Auto) Lymph # [place] # Seg Neutrophils % PT INR D-Dimer Heparin Anti-Xa Level POC ABG pH 7.225 L POC ABG pCO2 54.7 H POC ABG pO2 Sodium Potassium Chloride 108.8 H Carbon Dioxide BUN Creatinine Glucose 105 H POC Glucose Lactic Acid Calcium 8.2 L Phosphorus Iron TIBC Total Bilirubin AST ALT Lactate Dehydrogenase Total Creatine Kinase CK-MB (CK-2) CK-MB (CK-2) Rel Index Troponin T C-Reactive Protein NT-Pro-B Natriuret Pep Total Protein Albumin HDL Cholesterol Folate Ur Specific [place] Urine WBC (Auto) Crossmatch 12/30/18 12/30/18 12/30/18 13:53 18:17 18:17 WBC RBC Hgb Hct RDW Plt Count 114 L Lymph % (Auto) [place] % (Auto) Lymph # [place] # Seg Neutrophils % PT 16.5 H INR 1.25 H D-Dimer Heparin Anti-Xa Level POC ABG pH POC ABG pCO2 POC ABG pO2 Sodium Potassium Chloride Carbon Dioxide BUN Creatinine Glucose POC Glucose Lactic Acid Calcium Phosphorus Iron TIBC Total Bilirubin AST ALT Lactate Dehydrogenase Total Creatine Kinase CK-MB (CK-2) CK-MB (CK-2) Rel Index Troponin T 0.060 H D C-Reactive Protein NT-Pro-B Natriuret Pep Total Protein Albumin HDL Cholesterol Folate Ur Specific [place] Urine WBC (Auto) Crossmatch 12/31/18 12/31/18 12/31/18 00:31 04:39 05:30 WBC RBC Hgb 10.9 L Hct 32.4 L RDW 16.1 H Plt Count 97 L Lymph % (Auto) [place] % (Auto) Lymph # [place] # Seg Neutrophils % PT INR D-Dimer Heparin Anti-Xa Level 0.12 L POC ABG pH 7.337 L POC ABG pCO2 POC ABG pO2 Sodium Potassium Chloride Carbon Dioxide BUN Creatinine Glucose POC Glucose Lactic Acid Calcium Phosphorus Iron TIBC Total Bilirubin AST ALT Lactate Dehydrogenase Total Creatine Kinase CK-MB (CK-2) CK-MB (CK-2) Rel Index Troponin T C-Reactive Protein NT-Pro-B Natriuret Pep Total Protein Albumin HDL Cholesterol Folate Ur Specific [place] Urine WBC (Auto) Crossmatch 12/31/18 12/31/18 12/31/18 05:30 16:27 18:40 WBC RBC Hgb Hct RDW Plt Count Lymph % (Auto) [place] % (Auto) Lymph # [place] # Seg Neutrophils % PT INR D-Dimer Heparin Anti-Xa Level POC ABG pH 7.246 L POC ABG pCO2 52.6 H POC ABG pO2 Sodium Potassium Chloride 110.5 H Carbon Dioxide BUN Creatinine Glucose 107 H POC Glucose 109 H Lactic Acid Calcium 8.2 L Phosphorus Iron TIBC Total Bilirubin 1.30 H AST ALT Lactate Dehydrogenase Total Creatine Kinase CK-MB (CK-2) CK-MB (CK-2) Rel Index Troponin T C-Reactive Protein NT-Pro-B Natriuret Pep Total Protein 5.1 L Albumin 2.3 L HDL Cholesterol Folate Ur Specific [place] Urine WBC (Auto) Crossmatch 12/31/18 01/01/19 01/01/19 21:37 03:05 04:25 WBC RBC Hgb Hct RDW Plt Count Lymph % (Auto) [place] % (Auto) Lymph # [place] # Seg Neutrophils % PT INR D-Dimer Heparin Anti-Xa Level POC ABG pH 7.278 L POC ABG pCO2 50.6 H POC ABG pO2 111 H Sodium Potassium Chloride Carbon Dioxide BUN Creatinine Glucose POC Glucose 108 H 147 H Lactic Acid Calcium Phosphorus Iron TIBC Total Bilirubin AST ALT Lactate Dehydrogenase Total Creatine Kinase CK-MB (CK-2) CK-MB (CK-2) Rel Index Troponin T C-Reactive Protein NT-Pro-B Natriuret Pep Total Protein Albumin HDL Cholesterol Folate Ur Specific [place] Urine WBC (Auto) Crossmatch 01/01/19 01/01/19 01/01/19 04:42 04:42 06:32 WBC 3.9 L RBC 3.54 L Hgb 10.7 L Hct 31.6 L RDW 16.3 H Plt Count 83 L Lymph % (Auto) [place] % (Auto) Lymph # [place] # Seg Neutrophils % PT INR D-Dimer Heparin Anti-Xa Level POC ABG pH POC ABG pCO2 POC ABG pO2 Sodium Potassium Chloride 109.8 H Carbon Dioxide BUN Creatinine Glucose 134 H POC Glucose 143 H Lactic Acid Calcium 8.1 L Phosphorus Iron TIBC Total Bilirubin AST ALT Lactate Dehydrogenase Total Creatine Kinase CK-MB (CK-2) CK-MB (CK-2) Rel Index Troponin T C-Reactive Protein NT-Pro-B Natriuret Pep Total Protein 4.9 L Albumin 2.3 L HDL Cholesterol Folate Ur Specific [place] Urine WBC (Auto) Crossmatch 01/01/19 01/01/19 01/01/19 07:33 11:37 13:55 WBC RBC Hgb Hct RDW Plt Count Lymph % (Auto) [place] % (Auto) Lymph # [place] # Seg Neutrophils % PT INR D-Dimer Heparin Anti-Xa Level POC ABG pH 7.242 L POC ABG pCO2 55.3 H POC ABG pO2 Sodium Potassium Chloride Carbon Dioxide BUN Creatinine Glucose POC Glucose 137 H 133 H Lactic Acid Calcium Phosphorus Iron TIBC Total Bilirubin AST ALT Lactate Dehydrogenase Total Creatine Kinase CK-MB (CK-2) CK-MB (CK-2) Rel Index Troponin T C-Reactive Protein NT-Pro-B Natriuret Pep Total Protein Albumin HDL Cholesterol Folate Ur Specific [place] Urine WBC (Auto) Crossmatch 01/01/19 01/01/19 01/01/19 15:44 16:51 21:35 WBC RBC Hgb Hct RDW Plt Count Lymph % (Auto) [place] % (Auto) Lymph # [place] # Seg Neutrophils % PT INR D-Dimer Heparin Anti-Xa Level POC ABG pH 7.298 L POC ABG pCO2 50.6 H POC ABG pO2 Sodium Potassium Chloride Carbon Dioxide BUN Creatinine Glucose POC Glucose 139 H 106 H Lactic Acid Calcium Phosphorus Iron TIBC Total Bilirubin AST ALT Lactate Dehydrogenase Total Creatine Kinase CK-MB (CK-2) CK-MB (CK-2) Rel Index Troponin T C-Reactive Protein NT-Pro-B Natriuret Pep Total Protein Albumin HDL Cholesterol Folate Ur Specific [place] Urine WBC (Auto) Crossmatch 01/02/19 01/02/19 01/02/19 03:13 04:40 05:09 WBC 3.9 L RBC Hgb Hct RDW 16.1 H Plt Count 94 L Lymph % (Auto) 7.5 L [place] % (Auto) 14.2 H Lymph # 0.3 L [place] # Seg Neutrophils % 76.5 H PT INR D-Dimer Heparin Anti-Xa Level POC ABG pH 7.206 L POC ABG pCO2 65.8 H POC ABG pO2 62 L Sodium Potassium Chloride Carbon Dioxide BUN Creatinine Glucose POC Glucose 124 H Lactic Acid Calcium Phosphorus Iron TIBC Total Bilirubin AST ALT Lactate Dehydrogenase Total Creatine Kinase CK-MB (CK-2) CK-MB (CK-2) Rel Index Troponin T C-Reactive Protein NT-Pro-B Natriuret Pep Total Protein Albumin HDL Cholesterol Folate Ur Specific [place] Urine WBC (Auto) Crossmatch 01/02/19 01/02/19 01/02/19 05:09 05:09 05:32 WBC RBC Hgb Hct RDW Plt Count Lymph % (Auto) [place] % (Auto) Lymph # [place] # Seg Neutrophils % PT INR D-Dimer Heparin Anti-Xa Level POC ABG pH POC ABG pCO2 POC ABG pO2 Sodium Potassium Chloride 107.4 H Carbon Dioxide BUN Creatinine Glucose 133 H POC Glucose 130 H Lactic Acid Calcium 8.3 L Phosphorus Iron 34 L TIBC 231 L Total Bilirubin AST ALT Lactate Dehydrogenase Total Creatine Kinase CK-MB (CK-2) CK-MB (CK-2) Rel Index Troponin T C-Reactive Protein NT-Pro-B Natriuret Pep Total Protein Albumin HDL Cholesterol Folate 6.01 L Ur Specific [place] Urine WBC (Auto) Crossmatch 01/02/19 01/02/19 01/02/19 10:25 11:21 11:42 WBC RBC Hgb Hct RDW Plt Count Lymph % (Auto) [place] % (Auto) Lymph # [place] # Seg Neutrophils % PT INR D-Dimer Heparin Anti-Xa Level POC ABG pH 7.318 L POC ABG pCO2 56.7 H POC ABG pO2 215 H Sodium Potassium Chloride Carbon Dioxide BUN Creatinine Glucose POC Glucose 108 H 152 H Lactic Acid Calcium Phosphorus Iron TIBC Total Bilirubin AST ALT Lactate Dehydrogenase Total Creatine Kinase CK-MB (CK-2) CK-MB (CK-2) Rel Index Troponin T C-Reactive Protein NT-Pro-B Natriuret Pep Total Protein Albumin HDL Cholesterol Folate Ur Specific [place] Urine WBC (Auto) Crossmatch 01/02/19 01/03/19 01/03/19 17:37 04:28 10:57 WBC RBC Hgb 11.6 L Hct RDW Plt Count 105 L Lymph % (Auto) [place] % (Auto) Lymph # [place] # Seg Neutrophils % PT INR D-Dimer Heparin Anti-Xa Level POC ABG pH POC ABG pCO2 POC ABG pO2 Sodium Potassium Chloride Carbon Dioxide BUN Creatinine Glucose 111 H POC Glucose 107 H Lactic Acid Calcium Phosphorus Iron TIBC Total Bilirubin AST ALT Lactate Dehydrogenase Total Creatine Kinase CK-MB (CK-2) CK-MB (CK-2) Rel Index Troponin T C-Reactive Protein NT-Pro-B Natriuret Pep Total Protein Albumin HDL Cholesterol Folate Ur Specific [place] Urine WBC (Auto) Crossmatch 01/03/19 01/03/19 01/03/19 15:16 17:33 20:35 WBC RBC Hgb Hct RDW Plt Count Lymph % (Auto) [place] % (Auto) Lymph # [place] # Seg Neutrophils % PT INR D-Dimer Heparin Anti-Xa Level POC ABG pH POC ABG pCO2 POC ABG pO2 Sodium Potassium Chloride Carbon Dioxide BUN Creatinine Glucose POC Glucose 135 H 166 H 114 H Lactic Acid Calcium Phosphorus Iron TIBC Total Bilirubin AST ALT Lactate Dehydrogenase Total Creatine Kinase CK-MB (CK-2) CK-MB (CK-2) Rel Index Troponin T C-Reactive Protein NT-Pro-B Natriuret Pep Total Protein Albumin HDL Cholesterol Folate Ur Specific [place] Urine WBC (Auto) Crossmatch 01/04/19 01/04/19 01/04/19 01:32 04:47 04:47 WBC 4.2 L RBC Hgb 11.5 L Hct 34.9 L RDW 15.8 H Plt Count 119 L Lymph % (Auto) [place] % (Auto) Lymph # [place] # Seg Neutrophils % PT INR D-Dimer Heparin Anti-Xa Level POC ABG pH POC ABG pCO2 POC ABG pO2 Sodium Potassium 3.3 L Chloride Carbon Dioxide BUN Creatinine Glucose 110 H POC Glucose 114 H Lactic Acid Calcium 8.3 L Phosphorus Iron TIBC Total Bilirubin AST ALT Lactate Dehydrogenase Total Creatine Kinase CK-MB (CK-2) CK-MB (CK-2) Rel Index Troponin T C-Reactive Protein NT-Pro-B Natriuret Pep Total Protein Albumin HDL Cholesterol Folate Ur Specific [place] Urine WBC (Auto) Crossmatch 01/04/19 01/04/19 01/04/19 08:51 11:41 16:25 WBC RBC Hgb Hct RDW Plt Count Lymph % (Auto) [place] % (Auto) Lymph # [place] # Seg Neutrophils % PT INR D-Dimer Heparin Anti-Xa Level POC ABG pH POC ABG pCO2 POC ABG pO2 Sodium Potassium Chloride Carbon Dioxide BUN Creatinine Glucose POC Glucose 122 H 146 H 142 H Lactic Acid Calcium Phosphorus Iron TIBC Total Bilirubin AST ALT Lactate Dehydrogenase Total Creatine Kinase CK-MB (CK-2) CK-MB (CK-2) Rel Index Troponin T C-Reactive Protein NT-Pro-B Natriuret Pep Total Protein Albumin HDL Cholesterol Folate Ur Specific [place] Urine WBC (Auto) Crossmatch 01/04/19 01/05/19 01/05/19 21:16 04:41 04:41 WBC RBC Hgb Hct RDW 15.9 H Plt Count 126 L Lymph % (Auto) [place] % (Auto) Lymph # [place] # Seg Neutrophils % PT INR D-Dimer Heparin Anti-Xa Level POC ABG pH POC ABG pCO2 POC ABG pO2 Sodium Potassium 3.4 L Chloride Carbon Dioxide BUN Creatinine Glucose 128 H POC Glucose 140 H Lactic Acid Calcium Phosphorus Iron TIBC Total Bilirubin AST ALT Lactate Dehydrogenase Total Creatine Kinase CK-MB (CK-2) CK-MB (CK-2) Rel Index Troponin T C-Reactive Protein NT-Pro-B Natriuret Pep Total Protein Albumin HDL Cholesterol Folate Ur Specific [place] Urine WBC (Auto) Crossmatch 01/05/19 01/05/19 01/05/19 08:10 11:52 17:24 WBC RBC Hgb Hct RDW Plt Count Lymph % (Auto) [place] % (Auto) Lymph # [place] # Seg Neutrophils % PT INR D-Dimer Heparin Anti-Xa Level POC ABG pH POC ABG pCO2 POC ABG pO2 Sodium Potassium Chloride Carbon Dioxide BUN Creatinine Glucose POC Glucose 134 H 178 H 124 H Lactic Acid Calcium Phosphorus Iron TIBC Total Bilirubin AST ALT Lactate Dehydrogenase Total Creatine Kinase CK-MB (CK-2) CK-MB (CK-2) Rel Index Troponin T C-Reactive Protein NT-Pro-B Natriuret Pep Total Protein Albumin HDL Cholesterol Folate Ur Specific [place] Urine WBC (Auto) Crossmatch 01/05/19 01/06/19 01/06/19 21:36 03:12 03:12 WBC RBC Hgb Hct RDW 16.7 H Plt Count 138 L Lymph % (Auto) [place] % (Auto) Lymph # [place] # Seg Neutrophils % PT INR D-Dimer Heparin Anti-Xa Level POC ABG pH POC ABG pCO2 POC ABG pO2 Sodium Potassium 3.4 L Chloride Carbon Dioxide BUN Creatinine Glucose 112 H POC Glucose 119 H Lactic Acid Calcium Phosphorus Iron TIBC Total Bilirubin AST ALT Lactate Dehydrogenase Total Creatine Kinase CK-MB (CK-2) CK-MB (CK-2) Rel Index Troponin T C-Reactive Protein NT-Pro-B Natriuret Pep Total Protein Albumin HDL Cholesterol Folate Ur Specific [place] Urine WBC (Auto) Crossmatch 01/06/19 01/06/19 01/06/19 08:11 10:22 10:22 WBC RBC Hgb Hct RDW 16.7 H Plt Count Lymph % (Auto) [place] % (Auto) Lymph # [place] # Seg Neutrophils % PT INR D-Dimer Heparin Anti-Xa Level POC ABG pH POC ABG pCO2 POC ABG pO2 Sodium Potassium 3.5 L Chloride Carbon Dioxide BUN Creatinine Glucose 151 H POC Glucose 112 H Lactic Acid Calcium Phosphorus Iron TIBC Total Bilirubin AST ALT Lactate Dehydrogenase Total Creatine Kinase CK-MB (CK-2) CK-MB (CK-2) Rel Index Troponin T C-Reactive Protein NT-Pro-B Natriuret Pep Total Protein Albumin HDL Cholesterol Folate Ur Specific [place] Urine WBC (Auto) Crossmatch 01/06/19 01/06/19 01/06/19 11:51 17:04 17:57 WBC RBC Hgb Hct RDW Plt Count Lymph % (Auto) [place] % (Auto) Lymph # [place] # Seg Neutrophils % PT INR D-Dimer Heparin Anti-Xa Level POC ABG pH POC ABG pCO2 POC ABG pO2 Sodium Potassium Chloride Carbon Dioxide BUN Creatinine Glucose POC Glucose 148 H 135 H Lactic Acid Calcium Phosphorus Iron TIBC Total Bilirubin AST ALT Lactate Dehydrogenase Total Creatine Kinase CK-MB (CK-2) CK-MB (CK-2) Rel Index Troponin T C-Reactive Protein NT-Pro-B Natriuret Pep 4783 H Total Protein Albumin HDL Cholesterol Folate Ur Specific [place] Urine WBC (Auto) Crossmatch 01/06/19 01/07/19 01/07/19 20:59 08:35 10:34 WBC RBC Hgb Hct RDW Plt Count Lymph % (Auto) [place] % (Auto) Lymph # [place] # Seg Neutrophils % PT INR D-Dimer Heparin Anti-Xa Level POC ABG pH POC ABG pCO2 POC ABG pO2 Sodium Potassium Chloride Carbon Dioxide BUN Creatinine Glucose 129 H POC Glucose 115 H 143 H Lactic Acid Calcium Phosphorus Iron TIBC Total Bilirubin AST ALT Lactate Dehydrogenase Total Creatine Kinase CK-MB (CK-2) CK-MB (CK-2) Rel Index Troponin T C-Reactive Protein NT-Pro-B Natriuret Pep Total Protein Albumin HDL Cholesterol Folate Ur Specific [place] Urine WBC (Auto) Crossmatch 01/07/19 01/07/19 01/07/19 11:31 16:16 20:49 WBC RBC Hgb Hct RDW Plt Count Lymph % (Auto) [place] % (Auto) Lymph # [place] # Seg Neutrophils % PT INR D-Dimer Heparin Anti-Xa Level POC ABG pH POC ABG pCO2 POC ABG pO2 Sodium Potassium Chloride Carbon Dioxide BUN Creatinine Glucose POC Glucose 144 H 133 H 138 H Lactic Acid Calcium Phosphorus Iron TIBC Total Bilirubin AST ALT Lactate Dehydrogenase Total Creatine Kinase CK-MB (CK-2) CK-MB (CK-2) Rel Index Troponin T C-Reactive Protein NT-Pro-B Natriuret Pep Total Protein Albumin HDL Cholesterol Folate Ur Specific [place] Urine WBC (Auto) Crossmatch 01/08/19 01/08/19 01/08/19 00:19 05:11 05:11 WBC RBC Hgb Hct RDW 16.9 H Plt Count Lymph % (Auto) [place] % (Auto) Lymph # [place] # Seg Neutrophils % PT INR D-Dimer Heparin Anti-Xa Level POC ABG pH POC ABG pCO2 POC ABG pO2 Sodium Potassium Chloride Carbon Dioxide BUN Creatinine Glucose 144 H POC Glucose 129 H Lactic Acid Calcium Phosphorus Iron TIBC Total Bilirubin AST ALT Lactate Dehydrogenase Total Creatine Kinase CK-MB (CK-2) CK-MB (CK-2) Rel Index Troponin T C-Reactive Protein NT-Pro-B Natriuret Pep Total Protein Albumin HDL Cholesterol Folate Ur Specific [place] Urine WBC (Auto) Crossmatch 01/08/19 01/08/19 01/08/19 07:32 11:56 16:40 WBC RBC Hgb Hct RDW Plt Count Lymph % (Auto) [place] % (Auto) Lymph # [place] # Seg Neutrophils % PT INR D-Dimer Heparin Anti-Xa Level POC ABG pH POC ABG pCO2 POC ABG pO2 Sodium Potassium Chloride Carbon Dioxide BUN Creatinine Glucose POC Glucose 134 H 162 H 166 H Lactic Acid Calcium Phosphorus Iron TIBC Total Bilirubin AST ALT Lactate Dehydrogenase Total Creatine Kinase CK-MB (CK-2) CK-MB (CK-2) Rel Index Troponin T C-Reactive Protein NT-Pro-B Natriuret Pep Total Protein Albumin HDL Cholesterol Folate Ur Specific [place] Urine WBC (Auto) Crossmatch 01/08/19 01/09/19 01/09/19 21:36 08:42 11:41 WBC RBC Hgb Hct RDW Plt Count Lymph % (Auto) [place] % (Auto) Lymph # [place] # Seg Neutrophils % PT INR D-Dimer Heparin Anti-Xa Level POC ABG pH POC ABG pCO2 POC ABG pO2 Sodium Potassium Chloride Carbon Dioxide BUN Creatinine Glucose POC Glucose 166 H 114 H 136 H Lactic Acid Calcium Phosphorus Iron TIBC Total Bilirubin AST ALT Lactate Dehydrogenase Total Creatine Kinase CK-MB (CK-2) CK-MB (CK-2) Rel Index Troponin T C-Reactive Protein NT-Pro-B Natriuret Pep Total Protein Albumin HDL Cholesterol Folate Ur Specific [place] Urine WBC (Auto) Crossmatch 01/09/19 01/09/19 01/10/19 16:06 21:59 11:46 WBC RBC Hgb Hct RDW Plt Count Lymph % (Auto) [place] % (Auto) Lymph # [place] # Seg Neutrophils % PT INR D-Dimer Heparin Anti-Xa Level POC ABG pH POC ABG pCO2 POC ABG pO2 Sodium Potassium Chloride Carbon Dioxide BUN Creatinine Glucose POC Glucose 130 H 159 H 126 H Lactic Acid Calcium Phosphorus Iron TIBC Total Bilirubin AST ALT Lactate Dehydrogenase Total Creatine Kinase CK-MB (CK-2) CK-MB (CK-2) Rel Index Troponin T C-Reactive Protein NT-Pro-B Natriuret Pep Total Protein Albumin HDL Cholesterol Folate Ur Specific [place] Urine WBC (Auto) Crossmatch 01/10/19 01/10/19 01/11/19 16:45 22:41 04:09 WBC 4.4 L RBC Hgb Hct RDW 16.5 H Plt Count 131 L Lymph % (Auto) [place] % (Auto) 11.8 H Lymph # 0.7 L [place] # Seg Neutrophils % PT INR D-Dimer Heparin Anti-Xa Level POC ABG pH POC ABG pCO2 POC ABG pO2 Sodium Potassium Chloride Carbon Dioxide BUN Creatinine Glucose POC Glucose 136 H 132 H Lactic Acid Calcium Phosphorus Iron TIBC Total Bilirubin AST ALT Lactate Dehydrogenase Total Creatine Kinase CK-MB (CK-2) CK-MB (CK-2) Rel Index Troponin T C-Reactive Protein NT-Pro-B Natriuret Pep Total Protein Albumin HDL Cholesterol Folate Ur Specific [place] Urine WBC (Auto) Crossmatch 01/11/19 01/11/19 01/11/19 04:09 07:31 11:54 WBC RBC Hgb Hct RDW Plt Count Lymph % (Auto) [place] % (Auto) Lymph # [place] # Seg Neutrophils % PT INR D-Dimer Heparin Anti-Xa Level POC ABG pH POC ABG pCO2 POC ABG pO2 Sodium 146 H Potassium 3.4 L D Chloride 96.9 L Carbon Dioxide 40 H D BUN Creatinine 0.7 L Glucose 110 H POC Glucose 116 H 138 H Lactic Acid Calcium Phosphorus 2.30 L Iron TIBC Total Bilirubin AST ALT Lactate Dehydrogenase Total Creatine Kinase CK-MB (CK-2) CK-MB (CK-2) Rel Index Troponin T C-Reactive Protein NT-Pro-B Natriuret Pep Total Protein 5.4 L Albumin 2.6 L HDL Cholesterol Folate Ur Specific [place] Urine WBC (Auto) Crossmatch 01/11/19 01/12/19 16:33 03:04 WBC RBC Hgb Hct RDW Plt Count Lymph % (Auto) [place] % (Auto) Lymph # [place] # Seg Neutrophils % PT INR D-Dimer Heparin Anti-Xa Level POC ABG pH POC ABG pCO2 POC ABG pO2 Sodium Potassium Chloride Carbon Dioxide BUN Creatinine Glucose POC Glucose 147 H 106 H Lactic Acid Calcium Phosphorus Iron TIBC Total Bilirubin AST ALT Lactate Dehydrogenase Total Creatine Kinase CK-MB (CK-2) CK-MB (CK-2) Rel Index Troponin T C-Reactive Protein NT-Pro-B Natriuret Pep Total Protein Albumin HDL Cholesterol Folate Ur Specific [place] Urine WBC (Auto) Crossmatch Chest x-ray: image reviewed (Right pleural effusion much improved) Allied health notes reviewed: nursing
[2019-01-12] MEDS: HumuLIN R SUB-Q SCH ×4 (08:18→21:46)
[2019-01-12] MEDS: GLUCOPHAGE XR PO SCH ×2 (08:55→17:29)
[2019-01-12] MEDS: REQUIP PO SCH (09:55)
[2019-01-12] MEDS: COZAAR PO SCH (09:55)
[2019-01-12] MEDS: ZOLOFT PO SCH (09:55)
[2019-01-12] MEDS: LOPRESSOR PO SCH ×2 (09:56→21:57)
[2019-01-12] MEDS: PEPCID PO SCH ×2 (09:56→21:46)
[2019-01-12] MEDS: FOLVITE PO SCH (09:56)
[2019-01-12] MEDS: LASIX IV SCH (09:57)
[2019-01-12] MEDS: KEPPRA PO SCH ×2 (09:57→21:46)
--- NOTE | 2019-01-12 10:17 | Progress Note ---
Assessment and Plan Assessment and plan: 73-year-old male, with morbid obesity, HTN, CAD, s/p VA, Seizure, admitted after spouse found him on the floor with agonal breathing 10 mins after he went to bed. EMS was called and transported to the hospital in. He was diagnosed with acute respiratory failure, intubated in the ED. Patient was extubated on 01/01, put on BIPAP . Currently patient is on Ventimask because he mouth breathes, desaturates, and pull of NC, when sleeping. He was diagnosed with sepsis due to pneumonia, completed Antibiotics. He is also diagnosed with DVT both legs, seen by Dr. Rivera, was put on Arixtra. He had thrombocytopenia, now resolved. He is being switched to Eliquis since 01/07 . He pulled out Peripheral iv line and Mid line overnight 01/03, and also pulled out right chest tube overnight 01/04. He has been confused, agitated on and off. Started on on Haldol prn , and Seroquel nightly.mentation improved Diagnosis Acute Hypoxic Respiratory failure- s/p extubated 01/01 Seizure Disorder DVT bilateral lower extremity Sepsis Right sided Pneumonia Large Right sided Pleural effusion- s/p chest tube was placed, s/p removal by patient Shock syndrome questionable septic versus cardiogenic Hypokalemia Morbid Obesity Thrombocytopenia- resolved Non ST elevated VA type II Presumed ischemic cardiomyopathy status post CABG Toxic metabolic encephalopathy Severe Protein calorie malnutrition Hyponatremia Hypocalcemia History of CVA 2 years ago Acute metabolic encephalopathy Plan: acute resp failure on MV <96 hours Previously intubated, extubated on 01/01 , placed on BIPAP nocturnally, placed on Venti mass due to mouth breathing when asleep, and NC when awake CHF with bilat pleural effusions effusions improving with lasix, no longer needs repeat R thoracenteisis, restart eliquis and plavix and work on dc planning Septic vs cardiogenic shock optimize cardiac meds, off pressors -has completed empiric abx, no clear source, ID input appreciated, they signed off on 01/11 Monitor electrolytes and replete prn Dementia with behavioral disturbance, encephalopathy, sundowning -improved with psych meds, Ataxia; debility wants SOPHY placement Bilat LE DVT; on eliquis Thrombocytopenia might have been due to entensive DVT resolved, back on blood thinners History Interval history: Review of systems Constitutional: No fevers, no malaise, no joint pains CVS: No chest pain, no orthopnea, no dyspnea on exertion, no pedal edema GI: No abdominal pain, no diarrhea, no vomiting, no constipation Respiratory: No shortness of breath, no wheezing, no coughing Hospitalist Physical - Physical exam Narrative exam: General.: Appears well, no distress, nontoxic HEENT: Moist mucous membranes, extraocular muscles intact, no lymphadenopathy Neck: supple Cardiac: S1-S2 heard Lungs: dull in bases Abdomen: soft , nontender, nondistended, bowel sounds positive Extremities: no edema clubbing or cyanosis Skin: no rash or lesions Neurologic: no gross focal deficits, Psych: calm, and cooperative - Constitutional Vitals: Temp Pulse Resp BP Pulse Ox 97.5 F L 85 22 146/80 95 01/12/19 07:25 01/12/19 09:56 01/12/19 08:59 01/12/19 09:56 01/12/19 08:59 General appearance: Present: no acute distress, obese Results - Labs CBC & Chem 7: 01/15/19 07:21 01/15/19 07:21 Labs: Laboratory Last Values WBC 4.4 K/mm3 (4.5-11.0) L 01/11/19 04:09 RBC 4.32 M/mm3 (3.65-5.03) 01/11/19 04:09 Hgb 12.6 gm/dl (11.8-15.2) 01/11/19 04:09 Hct 38.6 % (35.5-45.6) 01/11/19 04:09 MCV 89 fl (84-94) 01/11/19 04:09 MCH 29 pg (28-32) 01/11/19 04:09 MCHC 33 % (32-34) 01/11/19 04:09 RDW 16.5 % (13.2-15.2) H 01/11/19 04:09 Plt Count 131 K/mm3 (140-440) L 01/11/19 04:09 Lymph % (Auto) 15.0 % (13.4-35.0) 01/11/19 04:09 [place] % (Auto) 11.8 % (0.0-7.3) H 01/11/19 04:09 Eos % (Auto) 2.9 % (0.0-4.3) 01/11/19 04:09 Baso % (Auto) 0.4 % (0.0-1.8) 01/11/19 04:09 Lymph # 0.7 K/mm3 (1.2-5.4) L 01/11/19 04:09 [place] # 0.5 K/mm3 (0.0-0.8) 01/11/19 04:09 Eos # 0.1 K/mm3 (0.0-0.4) 01/11/19 04:09 Baso # 0.0 K/mm3 (0.0-0.1) 01/11/19 04:09 Seg Neutrophils % 69.9 % (40.0-70.0) 01/11/19 04:09 Seg Neutrophils # 3.0 K/mm3 (1.8-7.7) 01/11/19 04:09 PT 16.5 Sec. (12.2-14.9) H 12/30/18 18:17 INR 1.25 (0.87-1.13) H 12/30/18 18:17 APTT 33.1 Sec. (24.2-36.6) 12/30/18 18:17 D-Dimer 815.50 ng/mlDDU (0-234) H 12/28/18 23:58 Heparin Anti-Xa Level 0.70 U.I./ml (0.3-0.7) 01/02/19 05:09 Heparin Anti-Xa, Unfract Negative (Negative) 01/02/19 05:26 POC ABG pH 7.318 (7.35-7.45) L 01/02/19 11:21 POC ABG pCO2 56.7 (35-45) H 01/02/19 11:21 POC ABG pO2 215 (80-105) H 01/02/19 11:21 POC ABG HCO3 29.1 (22-26 mml/L) 01/02/19 11:21 POC ABG Total CO2 31 (23-27mmol/L) 01/02/19 11:21 POC ABG O2 Sat 100 01/02/19 11:21 POC ABG Base Excess 3 ((-2) - (+3)mmol/L) 01/02/19 11:21 FiO2 60 % 01/02/19 11:21 Sodium 146 mmol/L (137-145) H 01/11/19 04:09 Potassium 3.4 mmol/L (3.6-5.0) L D 01/11/19 04:09 Chloride 96.9 mmol/L (98-107) L 01/11/19 04:09 Carbon Dioxide 40 mmol/L (22-30) H D 01/11/19 04:09 Anion Gap 13 mmol/L 01/11/19 04:09 BUN 11 mg/dL (9-20) 01/11/19 04:09 Creatinine 0.7 mg/dL (0.8-1.5) L 01/11/19 04:09 Estimated GFR > 60 ml/min 01/11/19 04:09 BUN/Creatinine Ratio 16 % 01/11/19 04:09 Glucose 110 mg/dL (75-100) H 01/11/19 04:09 POC Glucose 128 (70-105) H 01/12/19 08:23 Lactic Acid 1.50 mmol/L (0.7-2.0) 12/30/18 11:42 Calcium 8.9 mg/dL (8.4-10.2) 01/11/19 04:09 Phosphorus 2.30 mg/dL (2.5-4.5) L 01/11/19 04:09 Magnesium 2.00 mg/dL (1.7-2.3) 01/11/19 04:09 Iron 34 ug/dL (49-181) L 01/02/19 05:09 TIBC 231 mcg/dL (250-450) L 01/02/19 05:09 Ferritin 163.3 ng/mL (13.0-400.0) 01/02/19 05:09 Total Bilirubin 0.70 mg/dL (0.1-1.2) 01/11/19 04:09 AST 17 units/L (5-40) 01/11/19 04:09 ALT 11 units/L (7-56) 01/11/19 04:09 Alkaline Phosphatase 51 units/L (35-129) 01/11/19 04:09 Lactate Dehydrogenase 405 units/L (91-180) H 12/29/18 15:02 Total Creatine Kinase 837 units/L (55-170) H 12/29/18 12:51 CK-MB (CK-2) 10.5 ng/mL (0.0-4.0) H 12/29/18 12:51 CK-MB (CK-2) Rel Index 1.2 (0-4) 12/29/18 12:51 Troponin T 0.060 ng/mL (0.00-0.029) H D 12/30/18 13:53 C-Reactive Protein 2.80 mg/dL (0.00-1.30) H 12/29/18 16:46 NT-Pro-B Natriuret Pep 4783 pg/mL (0-900) H 01/06/19 17:04 Total Protein 5.4 g/dL (6.3-8.2) L 01/11/19 04:09 Albumin 2.6 g/dL (3.9-5) L 01/11/19 04:09 Albumin/Globulin Ratio 0.9 % 01/11/19 04:09 Triglycerides 113 mg/dL (2-149) 12/29/18 08:34 Cholesterol 120 mg/dL (50-199) 12/29/18 08:34 LDL Cholesterol Direct 82 mg/dL (50-130) 12/29/18 08:34 HDL Cholesterol 34 mg/dL (40-59) L 12/29/18 08:34 Cholesterol/HDL Ratio 3.52 % 12/29/18 08:34 Serotonin Release Assay See scanned result 01/02/19 05:26 Vitamin B12 365.3 pg/mL (211-911) 01/02/19 05:09 Folate 6.01 ng/mL (7.3-26.0) L 01/02/19 05:09 Urine Color [place] (Yellow) 12/29/18 03:00 Urine Turbidity Cloudy (Clear) 12/29/18 03:00 Urine pH 5.0 (5.0-7.0) 12/29/18 03:00 Ur Specific [place] 1.033 (1.003-1.030) H 12/29/18 03:00 Urine Protein >500 mg/dL (Negative) 12/29/18 03:00 Urine Glucose (UA) 150 mg/dL (Negative) 12/29/18 03:00 Urine Ketones Neg mg/dL (Negative) 12/29/18 03:00 Urine Blood Mod (Negative) 12/29/18 03:00 Urine Nitrite Neg (Negative) 12/29/18 03:00 Urine Bilirubin Neg (Negative) 12/29/18 03:00 Urine Urobilinogen < 2.0 mg/dL (<2.0) 12/29/18 03:00 Ur Leukocyte Esterase Neg (Negative) 12/29/18 03:00 Urine WBC (Auto) 31.0 /HPF (0.0-6.0) H 12/29/18 03:00 Urine RBC (Auto) 27.0 /HPF (0.0-6.0) 12/29/18 03:00 U Epithel Cells (Auto) 4.0 /HPF (0-13.0) 12/29/18 03:00 Urine Bacteria (Auto) 4+ /HPF (Negative) 12/29/18 03:00 Urine Mucus 3+ /HPF 12/29/18 03:00 Urine Opiates Screen Presumptive negative 12/29/18 03:00 Urine Methadone Screen Presumptive negative 12/29/18 03:00 Ur Barbiturates Screen Presumptive negative 12/29/18 03:00 Ur Phencyclidine Scrn Presumptive negative 12/29/18 03:00 Ur Amphetamines Screen Presumptive negative 12/29/18 03:00 U Benzodiazepines Scrn Presumptive negative 12/29/18 03:00 Urine Cocaine Screen Presumptive negative 12/29/18 03:00 U Marijuana (THC) Screen Presumptive negative 12/29/18 03:00 Drugs of Abuse Note Disclamer 12/29/18 03:00 Heparin-induced Plt Ab Negative (Negative) 01/02/19 05:26 UF Heparin High Dose 0 % Release 01/02/19 05:26 THOMAS UFH Low Dose 0.1 0 % Release 01/02/19 05:26 THOMAS UFH Low Dose 0.5 0 % Release 01/02/19 05:26 Urine Legionella Ag Not detected (Not Detected) 12/31/18 05:30 Blood Type O POSITIVE 12/29/18 01:53 Antibody Screen Negative 12/29/18 01:53 Crossmatch See Detail 12/29/18 01:53 Active Medications - Current Medications Current Medications: Generic Name Dose Route Start Last Admin Trade Name Freq PRN Reason Stop Dose Admin Acetaminophen 650 mg 12/29/18 04:49 12/30/18 08:33 Tylenol MI 650 mg Q4H PRN Administration Fever >101 Albuterol/Ipratropium 1 ampul 01/01/19 14:00 01/12/19 08:14 Duoneb *Not For Prn Use* IH 1 ampul Q6HRT WENDY Administration Atorvastatin Calcium 40 mg 01/04/19 22:00 01/11/19 21:55 Lipitor PO 40 mg QHS WENDY Administration Dextrose 50 ml 12/29/18 04:47 D50w (25gm) Syringe IV PRN PRN Hypoglycemia Famotidine 20 mg 01/04/19 10:00 01/12/19 09:56 Pepcid PO 20 mg BID WENDY Administration Folic Acid 1 mg 01/06/19 12:00 01/12/19 09:56 Folvite PO 1 mg QDAY WENDY Administration Furosemide 40 mg 01/11/19 10:00 01/12/19 09:57 Lasix IV 40 mg 1000 WENDY Administration Gabapentin 300 mg 01/10/19 22:00 01/11/19 21:56 Neurontin PO 300 mg HS WENDY Administration Haloperidol Lactate 5 mg 01/07/19 11:33 01/12/19 02:21 Haldol IM 5 mg Q6H PRN Administration Agitation Hydralazine HCl 10 mg 01/01/19 13:23 Apresoline IV Q4HR PRN SBP >/=170 Insulin Human Regular 0 units 01/04/19 11:30 01/12/19 08:18 Humulin R SUB-Q Not Given ACHS [facility] Protocol Levetiracetam 500 mg 01/04/19 10:00 01/12/19 09:57 Keppra PO 500 mg BID WENDY Administration Losartan Potassium 50 mg 01/04/19 11:00 01/12/19 09:55 Cozaar PO 50 mg DAILY WENDY Administration Metformin HCl 500 mg 01/10/19 17:00 01/12/19 08:55 Glucophage Xr PO 500 mg BIDDIAB WENDY Administration Metoprolol Tartrate 12.5 mg 01/03/19 11:00 01/12/19 09:56 Lopressor PO 12.5 mg BID WENDY Administration Ondansetron HCl 4 mg 12/29/18 04:49 Zofran IV Q8H PRN Nausea And Vomiting Quetiapine Fumarate 50 mg 01/08/19 22:00 01/11/19 21:56 Seroquel PO 50 mg QHS WENDY Administration Ropinirole HCl 1 mg 01/11/19 10:00 01/12/19 09:55 Requip PO 1 mg DAILY WENDY Administration Sertraline HCl 100 mg 01/11/19 10:00 01/12/19 09:55 Zoloft PO 100 mg QDAY WENDY Administration Nutrition/Malnutrition Assess - Dietary Evaluation Nutrition/Malnutrition Findings: Nutrition Notes Start: 12/31/18 14:59 Freq: Status: Active Protocol: Document 01/07/19 12:07 LIZ (Rec: 01/07/19 12:13 [facility] SRW- [id number]) Nutrition Notes Initial or Follow up Reassessment Current Diagnosis Coronary Artery Disease, Diabetes,Hypertension, Respiratory Failure Other Pertinent Diagnosis (R) lung effusion, (R) pneu Current Diet Cardiac/consistent carbohydrate + Glucerna daily Labs/Tests Reviewed Pertinent Medications Reviewed Height 5 ft 7 in Weight 131.19 kg [place] Body Weight (kg) 67.27 BMI 45.3 Weight change and time frame Current wt obtained from bed scale Subjective/Other Information Pt reports poor appetite, but does drink the Glucerna. Pt family member states that he ate "a little bit" yesterday. Burn Absent Trauma Absent #1 Nutrition Diagnosis Inadequate oral intake Diagnosis Progress(for reassessment Continues documentation) Is patient on ventilator? No Is Patient Ambulatory and/or Out of Bed No REE-([facility]-confined to bed) 2412.252 Kcal/Kg value to use for calculation 14 Approximate Energy Requirements Using 1837 kcal/Kg Additional Notes Pro needs 1-1.2g/kg adjBW: 99- 119g/day Fluid needs 1ml/kcal Nutrition Intervention Change Diet Order: Continue current diet order Add Supplement/Snack (indicate name/kcal Glucerna [place] BID /protein ) Provides kCal: 440 Provides Protein (gm) 20 Goal #1 PO intake of meals plus ONS to meet at least 75% of energy and pro needs Follow-Up By: 01/11/19 Additional Comments F/U: intakes
[2019-01-12] MEDS: KCL 10MEQ/100ML 10 MEQ/100 ML BAG IV SCH ×2 (19:59→20:00)
[2019-01-12] MEDS: NEURONTIN PO SCH (21:45)
[2019-01-12] MEDS: ELIQUIS PO SCH (21:45)
[2019-01-12] MEDS: PLAVIX PO SCH (21:55)
[2019-01-13] MEDS: DUONEB *Not for PRN Use IH SCH ×4 (02:26→20:49)
[2019-01-13] MEDS: HumuLIN R SUB-Q SCH ×4 (08:12→21:35)
[2019-01-13] MEDS: GLUCOPHAGE XR PO SCH ×2 (08:40→17:28)
[2019-01-13] MEDS: REQUIP PO SCH (09:24)
[2019-01-13] MEDS: PEPCID PO SCH ×2 (09:24→21:34)
[2019-01-13] MEDS: KEPPRA PO SCH ×2 (09:24→21:34)
[2019-01-13] MEDS: ZOLOFT PO SCH (09:25)
[2019-01-13] MEDS: FOLVITE PO SCH (09:46)
--- NOTE | 2019-01-13 09:46 | Progress Note ---
Subjective Date of service: 01/13/19 Principal diagnosis: dvt Interval history: seizure control good reviewed all labs and notes continue to monitor closely Objective - Vital Sign Vital Signs - 12hr 01/12/19 01/12/19 01/13/19 21:57 22:00 00:10 Temperature Pulse Rate 88 Pulse Rate [ Bilateral] Pulse Rate [ 78 From Monitor] Pulse Rate [ 78 Right Radial] Respiratory 20 19 Rate Respiratory Rate [Bilateral ] Blood Pressure 97/47 O2 Sat by Pulse 95 91 Oximetry 01/13/19 01/13/19 01/13/19 01:51 02:29 02:40 Temperature 97.5 F L Pulse Rate 77 Pulse Rate [ 75 77 Bilateral] Pulse Rate [ From Monitor] Pulse Rate [ Right Radial] Respiratory 20 Rate Respiratory 18 16 Rate [Bilateral ] Blood Pressure 117/64 O2 Sat by Pulse 96 Oximetry 01/13/19 01/13/19 01/13/19 07:26 08:13 09:12 Temperature 98.1 F Pulse Rate 75 Pulse Rate [ 74 Bilateral] Pulse Rate [ From Monitor] Pulse Rate [ Right Radial] Respiratory 16 Rate Respiratory 16 Rate [Bilateral ] Blood Pressure 106/76 O2 Sat by Pulse 95 96 Oximetry 01/13/19 09:30 Temperature Pulse Rate 72 Pulse Rate [ Bilateral] Pulse Rate [ From Monitor] Pulse Rate [ Right Radial] Respiratory Rate Respiratory Rate [Bilateral ] Blood Pressure 106/42 O2 Sat by Pulse 96 Oximetry - Laboratory Findings CBC and BMP: 01/11/19 04:09 01/11/19 04:09 Abnormal Lab Findings: Abnormal Labs 12/28/18 12/28/18 12/28/18 23:58 23:58 23:58 WBC RBC 2.24 L Hgb 6.7 L Hct 20.9 L RDW 16.4 H Plt Count 99 L Lymph % (Auto) 10.7 L [place] % (Auto) 7.9 H Lymph # 0.6 L [place] # Seg Neutrophils % 80.7 H PT INR D-Dimer 815.50 H Heparin Anti-Xa Level POC ABG pH POC ABG pCO2 POC ABG pO2 Sodium 148 H Potassium 2.3 L* Chloride 128.4 H Carbon Dioxide 12 L BUN Creatinine 0.4 L Glucose POC Glucose Lactic Acid Calcium 5.0 L* Phosphorus Iron TIBC Total Bilirubin AST ALT < 5 L Lactate Dehydrogenase Total Creatine Kinase 44 L CK-MB (CK-2) CK-MB (CK-2) Rel Index 4.3 H Troponin T C-Reactive Protein NT-Pro-B Natriuret Pep Total Protein 2.3 L Albumin 1.1 L HDL Cholesterol Folate Ur Specific [place] Urine WBC (Auto) Crossmatch 12/28/18 12/29/18 12/29/18 23:58 00:27 01:53 WBC RBC Hgb Hct RDW Plt Count Lymph % (Auto) [place] % (Auto) Lymph # [place] # Seg Neutrophils % PT INR D-Dimer Heparin Anti-Xa Level POC ABG pH 7.169 L POC ABG pCO2 POC ABG pO2 Sodium Potassium Chloride Carbon Dioxide BUN Creatinine Glucose POC Glucose Lactic Acid Calcium Phosphorus Iron TIBC Total Bilirubin AST ALT Lactate Dehydrogenase Total Creatine Kinase CK-MB (CK-2) CK-MB (CK-2) Rel Index Troponin T C-Reactive Protein NT-Pro-B Natriuret Pep 1209 H Total Protein Albumin HDL Cholesterol Folate Ur Specific [place] Urine WBC (Auto) Crossmatch See Detail 12/29/18 12/29/18 12/29/18 03:00 05:02 08:34 WBC RBC Hgb Hct RDW Plt Count Lymph % (Auto) [place] % (Auto) Lymph # [place] # Seg Neutrophils % PT INR D-Dimer Heparin Anti-Xa Level POC ABG pH 7.225 L POC ABG pCO2 57.9 H POC ABG pO2 Sodium Potassium Chloride Carbon Dioxide BUN Creatinine Glucose POC Glucose Lactic Acid Calcium Phosphorus Iron TIBC Total Bilirubin AST ALT Lactate Dehydrogenase Total Creatine Kinase 344 H CK-MB (CK-2) 7.9 H CK-MB (CK-2) Rel Index Troponin T 0.103 H* D C-Reactive Protein NT-Pro-B Natriuret Pep Total Protein Albumin HDL Cholesterol 34 L Folate Ur Specific [place] 1.033 H Urine WBC (Auto) 31.0 H Crossmatch 12/29/18 12/29/18 12/29/18 08:34 08:53 12:51 WBC RBC Hgb Hct RDW Plt Count Lymph % (Auto) [place] % (Auto) Lymph # [place] # Seg Neutrophils % PT INR D-Dimer Heparin Anti-Xa Level POC ABG pH POC ABG pCO2 POC ABG pO2 Sodium Potassium 5.7 H D Chloride Carbon Dioxide BUN 21 H Creatinine Glucose 124 H POC Glucose 119 H Lactic Acid Calcium Phosphorus Iron TIBC Total Bilirubin AST ALT Lactate Dehydrogenase Total Creatine Kinase 837 H CK-MB (CK-2) 10.5 H CK-MB (CK-2) Rel Index Troponin T 0.084 H C-Reactive Protein NT-Pro-B Natriuret Pep Total Protein Albumin HDL Cholesterol Folate Ur Specific [place] Urine WBC (Auto) Crossmatch 12/29/18 12/29/18 12/29/18 12:51 12:51 15:02 WBC RBC Hgb Hct RDW 16.0 H Plt Count Lymph % (Auto) [place] % (Auto) 13.3 H Lymph # [place] # 1.4 H Seg Neutrophils % PT INR D-Dimer Heparin Anti-Xa Level POC ABG pH POC ABG pCO2 POC ABG pO2 Sodium Potassium 5.4 H Chloride Carbon Dioxide 19 L 17 L BUN 21 H 21 H Creatinine Glucose 116 H 115 H POC Glucose Lactic Acid Calcium Phosphorus Iron TIBC Total Bilirubin 1.50 H AST 43 H ALT Lactate Dehydrogenase 405 H Total Creatine Kinase CK-MB (CK-2) CK-MB (CK-2) Rel Index Troponin T C-Reactive Protein NT-Pro-B Natriuret Pep Total Protein 6.2 L D Albumin 3.1 L HDL Cholesterol Folate Ur Specific [place] Urine WBC (Auto) Crossmatch 12/29/18 12/29/18 12/29/18 15:03 16:46 16:46 WBC RBC Hgb Hct RDW Plt Count Lymph % (Auto) [place] % (Auto) Lymph # [place] # Seg Neutrophils % PT INR D-Dimer Heparin Anti-Xa Level POC ABG pH POC ABG pCO2 POC ABG pO2 Sodium Potassium Chloride Carbon Dioxide BUN Creatinine Glucose POC Glucose 121 H Lactic Acid 2.70 H* Calcium Phosphorus Iron TIBC Total Bilirubin AST ALT Lactate Dehydrogenase Total Creatine Kinase CK-MB (CK-2) CK-MB (CK-2) Rel Index Troponin T C-Reactive Protein 2.80 H NT-Pro-B Natriuret Pep Total Protein Albumin HDL Cholesterol Folate Ur Specific [place] Urine WBC (Auto) Crossmatch 12/29/18 12/29/18 12/29/18 16:50 17:37 19:37 WBC RBC Hgb Hct RDW Plt Count Lymph % (Auto) [place] % (Auto) Lymph # [place] # Seg Neutrophils % PT INR D-Dimer Heparin Anti-Xa Level POC ABG pH POC ABG pCO2 POC ABG pO2 248 H Sodium Potassium Chloride Carbon Dioxide 21 L BUN 21 H Creatinine Glucose 123 H POC Glucose 113 H Lactic Acid Calcium Phosphorus Iron TIBC Total Bilirubin AST ALT Lactate Dehydrogenase Total Creatine Kinase CK-MB (CK-2) CK-MB (CK-2) Rel Index Troponin T C-Reactive Protein NT-Pro-B Natriuret Pep Total Protein Albumin HDL Cholesterol Folate Ur Specific [place] Urine WBC (Auto) Crossmatch 12/29/18 12/29/18 12/30/18 20:10 21:36 04:43 WBC RBC Hgb Hct RDW Plt Count Lymph % (Auto) [place] % (Auto) Lymph # [place] # Seg Neutrophils % PT INR D-Dimer Heparin Anti-Xa Level POC ABG pH 7.327 L POC ABG pCO2 POC ABG pO2 79 L Sodium Potassium Chloride Carbon Dioxide BUN Creatinine Glucose POC Glucose Lactic Acid 2.70 H* 2.80 H* Calcium Phosphorus Iron TIBC Total Bilirubin AST ALT Lactate Dehydrogenase Total Creatine Kinase CK-MB (CK-2) CK-MB (CK-2) Rel Index Troponin T C-Reactive Protein NT-Pro-B Natriuret Pep Total Protein Albumin HDL Cholesterol Folate Ur Specific [place] Urine WBC (Auto) Crossmatch 12/30/18 12/30/18 12/30/18 11:42 11:42 13:43 WBC RBC Hgb Hct RDW 16.4 H Plt Count 125 L Lymph % (Auto) [place] % (Auto) Lymph # [place] # Seg Neutrophils % PT INR D-Dimer Heparin Anti-Xa Level POC ABG pH 7.225 L POC ABG pCO2 54.7 H POC ABG pO2 Sodium Potassium Chloride 108.8 H Carbon Dioxide BUN Creatinine Glucose 105 H POC Glucose Lactic Acid Calcium 8.2 L Phosphorus Iron TIBC Total Bilirubin AST ALT Lactate Dehydrogenase Total Creatine Kinase CK-MB (CK-2) CK-MB (CK-2) Rel Index Troponin T C-Reactive Protein NT-Pro-B Natriuret Pep Total Protein Albumin HDL Cholesterol Folate Ur Specific [place] Urine WBC (Auto) Crossmatch 12/30/18 12/30/18 12/30/18 13:53 18:17 18:17 WBC RBC Hgb Hct RDW Plt Count 114 L Lymph % (Auto) [place] % (Auto) Lymph # [place] # Seg Neutrophils % PT 16.5 H INR 1.25 H D-Dimer Heparin Anti-Xa Level POC ABG pH POC ABG pCO2 POC ABG pO2 Sodium Potassium Chloride Carbon Dioxide BUN Creatinine Glucose POC Glucose Lactic Acid Calcium Phosphorus Iron TIBC Total Bilirubin AST ALT Lactate Dehydrogenase Total Creatine Kinase CK-MB (CK-2) CK-MB (CK-2) Rel Index Troponin T 0.060 H D C-Reactive Protein NT-Pro-B Natriuret Pep Total Protein Albumin HDL Cholesterol Folate Ur Specific [place] Urine WBC (Auto) Crossmatch 12/31/18 12/31/18 12/31/18 00:31 04:39 05:30 WBC RBC Hgb 10.9 L Hct 32.4 L RDW 16.1 H Plt Count 97 L Lymph % (Auto) [place] % (Auto) Lymph # [place] # Seg Neutrophils % PT INR D-Dimer Heparin Anti-Xa Level 0.12 L POC ABG pH 7.337 L POC ABG pCO2 POC ABG pO2 Sodium Potassium Chloride Carbon Dioxide BUN Creatinine Glucose POC Glucose Lactic Acid Calcium Phosphorus Iron TIBC Total Bilirubin AST ALT Lactate Dehydrogenase Total Creatine Kinase CK-MB (CK-2) CK-MB (CK-2) Rel Index Troponin T C-Reactive Protein NT-Pro-B Natriuret Pep Total Protein Albumin HDL Cholesterol Folate Ur Specific [place] Urine WBC (Auto) Crossmatch 12/31/18 12/31/18 12/31/18 05:30 16:27 18:40 WBC RBC Hgb Hct RDW Plt Count Lymph % (Auto) [place] % (Auto) Lymph # [place] # Seg Neutrophils % PT INR D-Dimer Heparin Anti-Xa Level POC ABG pH 7.246 L POC ABG pCO2 52.6 H POC ABG pO2 Sodium Potassium Chloride 110.5 H Carbon Dioxide BUN Creatinine Glucose 107 H POC Glucose 109 H Lactic Acid Calcium 8.2 L Phosphorus Iron TIBC Total Bilirubin 1.30 H AST ALT Lactate Dehydrogenase Total Creatine Kinase CK-MB (CK-2) CK-MB (CK-2) Rel Index Troponin T C-Reactive Protein NT-Pro-B Natriuret Pep Total Protein 5.1 L Albumin 2.3 L HDL Cholesterol Folate Ur Specific [place] Urine WBC (Auto) Crossmatch 12/31/18 01/01/19 01/01/19 21:37 03:05 04:25 WBC RBC Hgb Hct RDW Plt Count Lymph % (Auto) [place] % (Auto) Lymph # [place] # Seg Neutrophils % PT INR D-Dimer Heparin Anti-Xa Level POC ABG pH 7.278 L POC ABG pCO2 50.6 H POC ABG pO2 111 H Sodium Potassium Chloride Carbon Dioxide BUN Creatinine Glucose POC Glucose 108 H 147 H Lactic Acid Calcium Phosphorus Iron TIBC Total Bilirubin AST ALT Lactate Dehydrogenase Total Creatine Kinase CK-MB (CK-2) CK-MB (CK-2) Rel Index Troponin T C-Reactive Protein NT-Pro-B Natriuret Pep Total Protein Albumin HDL Cholesterol Folate Ur Specific [place] Urine WBC (Auto) Crossmatch 01/01/19 01/01/19 01/01/19 04:42 04:42 06:32 WBC 3.9 L RBC 3.54 L Hgb 10.7 L Hct 31.6 L RDW 16.3 H Plt Count 83 L Lymph % (Auto) [place] % (Auto) Lymph # [place] # Seg Neutrophils % PT INR D-Dimer Heparin Anti-Xa Level POC ABG pH POC ABG pCO2 POC ABG pO2 Sodium Potassium Chloride 109.8 H Carbon Dioxide BUN Creatinine Glucose 134 H POC Glucose 143 H Lactic Acid Calcium 8.1 L Phosphorus Iron TIBC Total Bilirubin AST ALT Lactate Dehydrogenase Total Creatine Kinase CK-MB (CK-2) CK-MB (CK-2) Rel Index Troponin T C-Reactive Protein NT-Pro-B Natriuret Pep Total Protein 4.9 L Albumin 2.3 L HDL Cholesterol Folate Ur Specific [place] Urine WBC (Auto) Crossmatch 01/01/19 01/01/19 01/01/19 07:33 11:37 13:55 WBC RBC Hgb Hct RDW Plt Count Lymph % (Auto) [place] % (Auto) Lymph # [place] # Seg Neutrophils % PT INR D-Dimer Heparin Anti-Xa Level POC ABG pH 7.242 L POC ABG pCO2 55.3 H POC ABG pO2 Sodium Potassium Chloride Carbon Dioxide BUN Creatinine Glucose POC Glucose 137 H 133 H Lactic Acid Calcium Phosphorus Iron TIBC Total Bilirubin AST ALT Lactate Dehydrogenase Total Creatine Kinase CK-MB (CK-2) CK-MB (CK-2) Rel Index Troponin T C-Reactive Protein NT-Pro-B Natriuret Pep Total Protein Albumin HDL Cholesterol Folate Ur Specific [place] Urine WBC (Auto) Crossmatch 01/01/19 01/01/19 01/01/19 15:44 16:51 21:35 WBC RBC Hgb Hct RDW Plt Count Lymph % (Auto) [place] % (Auto) Lymph # [place] # Seg Neutrophils % PT INR D-Dimer Heparin Anti-Xa Level POC ABG pH 7.298 L POC ABG pCO2 50.6 H POC ABG pO2 Sodium Potassium Chloride Carbon Dioxide BUN Creatinine Glucose POC Glucose 139 H 106 H Lactic Acid Calcium Phosphorus Iron TIBC Total Bilirubin AST ALT Lactate Dehydrogenase Total Creatine Kinase CK-MB (CK-2) CK-MB (CK-2) Rel Index Troponin T C-Reactive Protein NT-Pro-B Natriuret Pep Total Protein Albumin HDL Cholesterol Folate Ur Specific [place] Urine WBC (Auto) Crossmatch 01/02/19 01/02/19 01/02/19 03:13 04:40 05:09 WBC 3.9 L RBC Hgb Hct RDW 16.1 H Plt Count 94 L Lymph % (Auto) 7.5 L [place] % (Auto) 14.2 H Lymph # 0.3 L [place] # Seg Neutrophils % 76.5 H PT INR D-Dimer Heparin Anti-Xa Level POC ABG pH 7.206 L POC ABG pCO2 65.8 H POC ABG pO2 62 L Sodium Potassium Chloride Carbon Dioxide BUN Creatinine Glucose POC Glucose 124 H Lactic Acid Calcium Phosphorus Iron TIBC Total Bilirubin AST ALT Lactate Dehydrogenase Total Creatine Kinase CK-MB (CK-2) CK-MB (CK-2) Rel Index Troponin T C-Reactive Protein NT-Pro-B Natriuret Pep Total Protein Albumin HDL Cholesterol Folate Ur Specific [place] Urine WBC (Auto) Crossmatch 01/02/19 01/02/19 01/02/19 05:09 05:09 05:32 WBC RBC Hgb Hct RDW Plt Count Lymph % (Auto) [place] % (Auto) Lymph # [place] # Seg Neutrophils % PT INR D-Dimer Heparin Anti-Xa Level POC ABG pH POC ABG pCO2 POC ABG pO2 Sodium Potassium Chloride 107.4 H Carbon Dioxide BUN Creatinine Glucose 133 H POC Glucose 130 H Lactic Acid Calcium 8.3 L Phosphorus Iron 34 L TIBC 231 L Total Bilirubin AST ALT Lactate Dehydrogenase Total Creatine Kinase CK-MB (CK-2) CK-MB (CK-2) Rel Index Troponin T C-Reactive Protein NT-Pro-B Natriuret Pep Total Protein Albumin HDL Cholesterol Folate 6.01 L Ur Specific [place] Urine WBC (Auto) Crossmatch 01/02/19 01/02/19 01/02/19 10:25 11:21 11:42 WBC RBC Hgb Hct RDW Plt Count Lymph % (Auto) [place] % (Auto) Lymph # [place] # Seg Neutrophils % PT INR D-Dimer Heparin Anti-Xa Level POC ABG pH 7.318 L POC ABG pCO2 56.7 H POC ABG pO2 215 H Sodium Potassium Chloride Carbon Dioxide BUN Creatinine Glucose POC Glucose 108 H 152 H Lactic Acid Calcium Phosphorus Iron TIBC Total Bilirubin AST ALT Lactate Dehydrogenase Total Creatine Kinase CK-MB (CK-2) CK-MB (CK-2) Rel Index Troponin T C-Reactive Protein NT-Pro-B Natriuret Pep Total Protein Albumin HDL Cholesterol Folate Ur Specific [place] Urine WBC (Auto) Crossmatch 01/02/19 01/03/19 01/03/19 17:37 04:28 10:57 WBC RBC Hgb 11.6 L Hct RDW Plt Count 105 L Lymph % (Auto) [place] % (Auto) Lymph # [place] # Seg Neutrophils % PT INR D-Dimer Heparin Anti-Xa Level POC ABG pH POC ABG pCO2 POC ABG pO2 Sodium Potassium Chloride Carbon Dioxide BUN Creatinine Glucose 111 H POC Glucose 107 H Lactic Acid Calcium Phosphorus Iron TIBC Total Bilirubin AST ALT Lactate Dehydrogenase Total Creatine Kinase CK-MB (CK-2) CK-MB (CK-2) Rel Index Troponin T C-Reactive Protein NT-Pro-B Natriuret Pep Total Protein Albumin HDL Cholesterol Folate Ur Specific [place] Urine WBC (Auto) Crossmatch 01/03/19 01/03/19 01/03/19 15:16 17:33 20:35 WBC RBC Hgb Hct RDW Plt Count Lymph % (Auto) [place] % (Auto) Lymph # [place] # Seg Neutrophils % PT INR D-Dimer Heparin Anti-Xa Level POC ABG pH POC ABG pCO2 POC ABG pO2 Sodium Potassium Chloride Carbon Dioxide BUN Creatinine Glucose POC Glucose 135 H 166 H 114 H Lactic Acid Calcium Phosphorus Iron TIBC Total Bilirubin AST ALT Lactate Dehydrogenase Total Creatine Kinase CK-MB (CK-2) CK-MB (CK-2) Rel Index Troponin T C-Reactive Protein NT-Pro-B Natriuret Pep Total Protein Albumin HDL Cholesterol Folate Ur Specific [place] Urine WBC (Auto) Crossmatch 01/04/19 01/04/19 01/04/19 01:32 04:47 04:47 WBC 4.2 L RBC Hgb 11.5 L Hct 34.9 L RDW 15.8 H Plt Count 119 L Lymph % (Auto) [place] % (Auto) Lymph # [place] # Seg Neutrophils % PT INR D-Dimer Heparin Anti-Xa Level POC ABG pH POC ABG pCO2 POC ABG pO2 Sodium Potassium 3.3 L Chloride Carbon Dioxide BUN Creatinine Glucose 110 H POC Glucose 114 H Lactic Acid Calcium 8.3 L Phosphorus Iron TIBC Total Bilirubin AST ALT Lactate Dehydrogenase Total Creatine Kinase CK-MB (CK-2) CK-MB (CK-2) Rel Index Troponin T C-Reactive Protein NT-Pro-B Natriuret Pep Total Protein Albumin HDL Cholesterol Folate Ur Specific [place] Urine WBC (Auto) Crossmatch 01/04/19 01/04/19 01/04/19 08:51 11:41 16:25 WBC RBC Hgb Hct RDW Plt Count Lymph % (Auto) [place] % (Auto) Lymph # [place] # Seg Neutrophils % PT INR D-Dimer Heparin Anti-Xa Level POC ABG pH POC ABG pCO2 POC ABG pO2 Sodium Potassium Chloride Carbon Dioxide BUN Creatinine Glucose POC Glucose 122 H 146 H 142 H Lactic Acid Calcium Phosphorus Iron TIBC Total Bilirubin AST ALT Lactate Dehydrogenase Total Creatine Kinase CK-MB (CK-2) CK-MB (CK-2) Rel Index Troponin T C-Reactive Protein NT-Pro-B Natriuret Pep Total Protein Albumin HDL Cholesterol Folate Ur Specific [place] Urine WBC (Auto) Crossmatch 01/04/19 01/05/19 01/05/19 21:16 04:41 04:41 WBC RBC Hgb Hct RDW 15.9 H Plt Count 126 L Lymph % (Auto) [place] % (Auto) Lymph # [place] # Seg Neutrophils % PT INR D-Dimer Heparin Anti-Xa Level POC ABG pH POC ABG pCO2 POC ABG pO2 Sodium Potassium 3.4 L Chlor[place] Carbon Dioxide BUN Creatinine Glucose 128 H POC Glucose 140 H Lactic Acid Calcium Phosphorus Iron TIBC Total Bilirubin AST ALT Lactate Dehydrogenase Total Creatine Kinase CK-MB (CK-2) CK-MB (CK-2) Rel Index Troponin T C-Reactive Protein NT-Pro-B Natriuret Pep Total Protein Albumin HDL Cholesterol Folate Ur Specific [place] Urine WBC (Auto) Crossmatch 01/05/19 01/05/19 01/05/19 08:10 11:52 17:24 WBC RBC Hgb Hct RDW Plt Count Lymph % (Auto) [place] % (Auto) Lymph # [place] # Seg Neutrophils % PT INR D-Dimer Heparin Anti-Xa Level POC ABG pH POC ABG pCO2 POC ABG pO2 Sodium Potassium Chloride Carbon Dioxide BUN Creatinine Glucose POC Glucose 134 H 178 H 124 H Lactic Acid Calcium Phosphorus Iron TIBC Total Bilirubin AST ALT Lactate Dehydrogenase Total Creatine Kinase CK-MB (CK-2) CK-MB (CK-2) Rel Index Troponin T C-Reactive Protein NT-Pro-B Natriuret Pep Total Protein Albumin HDL Cholesterol Folate Ur Specific [place] Urine WBC (Auto) Crossmatch 01/05/19 01/06/19 01/06/19 21:36 03:12 03:12 WBC RBC Hgb Hct RDW 16.7 H Plt Count 138 L Lymph % (Auto) [place] % (Auto) Lymph # [place] # Seg Neutrophils % PT INR D-Dimer Heparin Anti-Xa Level POC ABG pH POC ABG pCO2 POC ABG pO2 Sodium Potassium 3.4 L [place] Carbon Dioxide BUN Creatinine Glucose 112 H POC Glucose 119 H Lactic Acid Calcium Phosphorus Iron TIBC Total Bilirubin AST ALT Lactate Dehydrogenase Total Creatine Kinase CK-MB (CK-2) CK-MB (CK-2) Rel Index Troponin T C-Reactive Protein NT-Pro-B Natriuret Pep Total Protein Albumin HDL Cholesterol Folate Ur Specific [place] Urine WBC (Auto) Crossmatch 01/06/19 01/06/19 01/06/19 08:11 10:22 10:22 WBC RBC Hgb Hct RDW 16.7 H Plt Count Lymph % (Auto) [place] % (Auto) Lymph # [place] # Seg Neutrophils % PT INR D-Dimer Heparin Anti-Xa Level POC ABG pH POC ABG pCO2 POC ABG pO2 Sodium Potassium 3.5 L Ch[place] Carbon Dioxide BUN Creatinine Glucose 151 H POC Glucose 112 H Lactic Acid Calcium Phosphorus Iron TIBC Total Bilirubin AST ALT Lactate Dehydrogenase Total Creatine Kinase CK-MB (CK-2) CK-MB (CK-2) Rel Index Troponin T C-Reactive Protein NT-Pro-B Natriuret Pep Total Protein Albumin HDL Cholesterol Folate Ur Specific [place] Urine WBC (Auto) Crossmatch 01/06/19 01/06/19 01/06/19 11:51 17:04 17:57 WBC RBC Hgb Hct RDW Plt Count Lymph % (Auto) [place] % (Auto) Lymph # [place] # Seg Neutrophils % PT INR D-Dimer Heparin Anti-Xa Level POC ABG pH POC ABG pCO2 POC ABG pO2 Sodium Potassium Chloride Carbon Dioxide BUN Creatinine Glucose POC Glucose 148 H 135 H Lactic Acid Calcium Phosphorus Iron TIBC Total Bilirubin AST ALT Lactate Dehydrogenase Total Creatine Kinase CK-MB (CK-2) CK-MB (CK-2) Rel Index Troponin T C-Reactive Protein NT-Pro-B Natriuret Pep 4783 H Total Protein Albumin HDL Cholesterol Folate Ur Specific [place] Urine WBC (Auto) Crossmatch 01/06/19 01/07/19 01/07/19 20:59 08:35 10:34 WBC RBC Hgb Hct RDW Plt Count Lymph % (Auto) [place] % (Auto) Lymph # [place] # Seg Neutrophils % PT INR D-Dimer Heparin Anti-Xa Level POC ABG pH POC ABG pCO2 POC ABG pO2 Sodium Potassium Chloride Carbon Dioxide BUN Creatinine Glucose 129 H POC Glucose 115 H 143 H Lactic Acid Calcium Phosphorus Iron TIBC Total Bilirubin AST ALT Lactate Dehydrogenase Total Creatine Kinase CK-MB (CK-2) CK-MB (CK-2) Rel Index Troponin T C-Reactive Protein NT-Pro-B Natriuret Pep Total Protein Albumin HDL Cholesterol Folate Ur Specific [place] Urine WBC (Auto) Crossmatch 01/07/19 01/07/19 01/07/19 11:31 16:16 20:49 WBC RBC Hgb Hct RDW Plt Count Lymph % (Auto) [place] % (Auto) Lymph # [place] # Seg Neutrophils % PT INR D-Dimer Heparin Anti-Xa Level POC ABG pH POC ABG pCO2 POC ABG pO2 Sodium Potassium Chloride Carbon Dioxide BUN Creatinine Glucose POC Glucose 144 H 133 H 138 H Lactic Acid Calcium Phosphorus Iron TIBC Total Bilirubin AST ALT Lactate Dehydrogenase Total Creatine Kinase CK-MB (CK-2) CK-MB (CK-2) Rel Index Troponin T C-Reactive Protein NT-Pro-B Natriuret Pep Total Protein Albumin HDL Cholesterol Folate Ur Specific [place] Urine WBC (Auto) Crossmatch 01/08/19 01/08/19 01/08/19 00:19 05:11 05:11 WBC RBC Hgb Hct RDW 16.9 H Plt Count Lymph % (Auto) [place] % (Auto) Lymph # [place] # Seg Neutrophils % PT INR D-Dimer Heparin Anti-Xa Level POC ABG pH POC ABG pCO2 POC ABG pO2 Sodium Potassium Chloride Carbon Dioxide BUN Creatinine Glucose 144 H POC Glucose 129 H Lactic Acid Calcium Phosphorus Iron TIBC Total Bilirubin AST ALT Lactate Dehydrogenase Total Creatine Kinase CK-MB (CK-2) CK-MB (CK-2) Rel Index Troponin T C-Reactive Protein NT-Pro-B Natriuret Pep Total Protein Albumin HDL Cholesterol Folate Ur Specific [place] Urine WBC (Auto) Crossmatch 01/08/19 01/08/19 01/08/19 07:32 11:56 16:40 WBC RBC Hgb Hct RDW Plt Count Lymph % (Auto) [place] % (Auto) Lymph # [place] # Seg Neutrophils % PT INR D-Dimer Heparin Anti-Xa Level POC ABG pH POC ABG pCO2 POC ABG pO2 Sodium Potassium Chloride Carbon Dioxide BUN Creatinine Glucose POC Glucose 134 H 162 H 166 H Lactic Acid Calcium Phosphorus Iron TIBC Total Bilirubin AST ALT Lactate Dehydrogenase Total Creatine Kinase CK-MB (CK-2) CK-MB (CK-2) Rel Index Troponin T C-Reactive Protein NT-Pro-B Natriuret Pep Total Protein Albumin HDL Cholesterol Folate Ur Specific [place] Urine WBC (Auto) Crossmatch 01/08/19 01/09/19 01/09/19 21:36 08:42 11:41 WBC RBC Hgb Hct RDW Plt Count Lymph % (Auto) [place] % (Auto) Lymph # [place] # Seg Neutrophils % PT INR D-Dimer Heparin Anti-Xa Level POC ABG pH POC ABG pCO2 POC ABG pO2 Sodium Potassium Chloride Carbon Dioxide BUN Creatinine Glucose POC Glucose 166 H 114 H 136 H Lactic Acid Calcium Phosphorus Iron TIBC Total Bilirubin AST ALT Lactate Dehydrogenase Total Creatine Kinase CK-MB (CK-2) CK-MB (CK-2) Rel Index Troponin T C-Reactive Protein NT-Pro-B Natriuret Pep Total Protein Albumin HDL Cholesterol Folate Ur Specific [place] Urine WBC (Auto) Crossmatch 01/09/19 01/09/19 01/10/19 16:06 21:59 11:46 WBC RBC Hgb Hct RDW Plt Count Lymph % (Auto) [place] % (Auto) Lymph # [place] # Seg Neutrophils % PT INR D-Dimer Heparin Anti-Xa Level POC ABG pH POC ABG pCO2 POC ABG pO2 Sodium Potassium Chloride Carbon Dioxide BUN Creatinine Glucose POC Glucose 130 H 159 H 126 H Lactic Acid Calcium Phosphorus Iron TIBC Total Bilirubin AST ALT Lactate Dehydrogenase Total Creatine Kinase CK-MB (CK-2) CK-MB (CK-2) Rel Index Troponin T C-Reactive Protein NT-Pro-B Natriuret Pep Total Protein Albumin HDL Cholesterol Folate Ur Specific [place] Urine WBC (Auto) Crossmatch 01/10/19 01/10/19 01/11/19 16:45 22:41 04:09 WBC 4.4 L RBC Hgb Hct RDW 16.5 H Plt Count 131 L Lymph % (Auto) [place] % (Auto) 11.8 H Lymph # 0.7 L [place] # Seg Neutrophils % PT INR D-Dimer Heparin Anti-Xa Level POC ABG pH POC ABG pCO2 POC ABG pO2 Sodium Potassium Chloride Carbon Dioxide BUN Creatinine Glucose POC Glucose 136 H 132 H Lactic Acid Calcium Phosphorus Iron TIBC Total Bilirubin AST ALT Lactate Dehydrogenase Total Creatine Kinase CK-MB (CK-2) CK-MB (CK-2) Rel Index Troponin T C-Reactive Protein NT-Pro-B Natriuret Pep Total Protein Albumin HDL Cholesterol Folate Ur Specific [place] Urine WBC (Auto) Crossmatch 01/11/19 01/11/19 01/11/19 04:09 07:31 11:54 WBC RBC Hgb Hct RDW Plt Count Lymph % (Auto) [place] % (Auto) Lymph # [place] # Seg Neutrophils % PT INR D-Dimer Heparin Anti-Xa Level POC ABG pH POC ABG pCO2 POC ABG pO2 Sodium 146 H Potassium 3.4 L D Chloride 96.9 L Carbon Dioxide 40 H D BUN Creatinine 0.7 L Glucose 110 H POC Glucose 116 H 138 H Lactic Acid Calcium Phosphorus 2.30 L Iron TIBC Total Bilirubin AST ALT Lactate Dehydrogenase Total Creatine Kinase CK-MB (CK-2) CK-MB (CK-2) Rel Index Troponin T C-Reactive Protein NT-Pro-B Natriuret Pep Total Protein 5.4 L Albumin 2.6 L HDL Cholesterol Folate Ur Specific [place] Urine WBC (Auto) Crossmatch 01/11/19 01/12/19 01/12/19 16:33 03:04 08:23 WBC RBC Hgb Hct RDW Plt Count Lymph % (Auto) [place] % (Auto) Lymph # [place] # Seg Neutrophils % PT INR D-Dimer Heparin Anti-Xa Level POC ABG pH POC ABG pCO2 POC ABG pO2 Sodium Potassium Chloride Carbon Dioxide BUN Creatinine Glucose POC Glucose 147 H 106 H 128 H Lactic Acid Calcium Phosphorus Iron TIBC Total Bilirubin AST ALT Lactate Dehydrogenase Total Creatine Kinase CK-MB (CK-2) CK-MB (CK-2) Rel Index Troponin T C-Reactive Protein NT-Pro-B Natriuret Pep Total Protein Albumin HDL Cholesterol Folate Ur Specific [place] Urine WBC (Auto) Crossmatch 01/12/19 01/12/19 01/12/19 11:24 16:33 21:49 WBC RBC Hgb Hct RDW Plt Count Lymph % (Auto) [place] % (Auto) Lymph # [place] # Seg Neutrophils % PT INR D-Dimer Heparin Anti-Xa Level POC ABG pH POC ABG pCO2 POC ABG pO2 Sodium Potassium Chloride Carbon Dioxide BUN Creatinine Glucose POC Glucose 146 H 168 H 111 H Lactic Acid Calcium Phosphorus Iron TIBC Total Bilirubin AST ALT Lactate Dehydrogenase Total Creatine Kinase CK-MB (CK-2) CK-MB (CK-2) Rel Index Troponin T C-Reactive Protein NT-Pro-B Natriuret Pep Total Protein Albumin HDL Cholesterol Folate Ur Specific [place] Urine WBC (Auto) Crossmatch 01/13/19 07:30 WBC RBC Hgb Hct RDW Plt Count Lymph % (Auto) [place] % (Auto) Lymph # [place] # Seg Neutrophils % PT INR D-Dimer Heparin Anti-Xa Level POC ABG pH POC ABG pCO2 POC ABG pO2 Sodium Potassium Chloride Carbon Dioxide BUN Creatinine Glucose POC Glucose 108 H Lactic Acid Calcium Phosphorus Iron TIBC Total Bilirubin AST ALT Lactate Dehydrogenase Total Creatine Kinase CK-MB (CK-2) CK-MB (CK-2) Rel Index Troponin T C-Reactive Protein NT-Pro-B Natriuret Pep Total Protein Albumin HDL Cholesterol Folate Ur Specific [place] Urine WBC (Auto) Crossmatch
[2019-01-13] MEDS: COZAAR PO SCH (09:48)
[2019-01-13] MEDS: LOPRESSOR PO SCH ×2 (09:49→21:35)
[2019-01-13] MEDS: LASIX IV SCH (09:49)
[2019-01-13 10:46] LABS: BUN/Creatinine Ratio 21; Blood Urea Nitrogen 15 mg/dL (9-20); Hemolysis Index 28
[2019-01-13] MEDS: ELIQUIS PO SCH ×2 (10:57→21:34)
[2019-01-13] MEDS: PLAVIX PO SCH (10:57)
--- NOTE | 2019-01-13 13:33 | Hem/Onc Progress Note ---
Assessment and Plan 1. Deep venous thrombosis, left common femoral and right peroneal; bilateral leg swelling present. The patient was placed on heparin drip. His platelets had slightly fallen down. 2. The patient's platelet count at admission was 99 and then 196, 125, and 114. It is possible that the patient's baseline platelets are also low. 3. History of diabetes. 4. History of coronary artery disease. 5. Radiology showed right pleural effusion at one time. 6. History of seizure disorder as per the notes. 7. Myocardial infarction. 8. Status post coronary artery bypass graft. 9. Electrolyte imbalance. 10. History of cerebrovascular accident. 11. History of pneumonia. 12. h/o rt chest tube - h/o pl effusion - pt pulled out. 01/13 plt >100 US abdo limited - does not mention liver and spleen size. 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 uses CPAP at home low folate - on replacement restarted eliquis no thoracentesis as not much pl effusion d/w dr Blankenship. d/w pts - Patient Problems (1) DVT (deep venous thrombosis) Current Visit: Yes Status: Acute (2) Thrombocytopenia Current Visit: Yes Status: Acute Subjective Date of service: 01/13/19 Principal diagnosis: DVT Interval history: thoracentesis cancelled as not much effusion Objective - Constitutional Vitals: Last Vital Signs Temp 97.3 F L 01/13/19 12:46 Pulse 88 01/13/19 13:10 Resp 15 01/13/19 13:10 BP 125/66 01/13/19 12:46 Pulse Ox 96 01/13/19 13:11 Pain Intensity (0-10): denies any pain General appearance: no acute distress Performance status: 3-limited selfcare - EENT Eyes: EOM intact ENT: clear oral mucosa Lymph node exam: negative cervical - Neck Neck: normal ROM - Respiratory Respiratory effort: Positive: normal Respiratory: bilateral: CTA - Cardiovascular Heart Sounds: Present: S1 & S2 Extremities: normal temperature - Gastrointestinal General gastrointestinal: Present: soft, non-tender Rectal Exam: deferred - Genitourinary Male genitourinary: Present: deferred - Integumentary Integumentary: warm - Musculoskeletal Musculoskeletal: strength equal bilaterally - Neurologic Neurologic: moves all extremities - Labs Lab Results: Laboratory Results - last 24 hr 01/12/19 01/12/19 01/13/19 16:33 21:49 07:30 Sodium Potassium Chloride Carbon Dioxide Anion Gap BUN Creatinine Estimated GFR BUN/Creatinine Ratio Glucose POC Glucose 168 H 111 H 108 H Calcium 01/13/19 01/13/19 10:04 11:41 Sodium 143 Potassium 3.9 Chloride 89.5 L Carbon Dioxide 46 H* Anion Gap 11 BUN 15 Creatinine 0.7 L Estimated GFR > 60 BUN/Creatinine Ratio 21 Glucose 107 H POC Glucose 110 H Calcium 9.0 Medications & Allergies - Medications Allergies/Adverse Reactions: Allergies Penicillins Allergy (Verified 12/29/18 04:18) Unknown Home Medications: Home Medications Medication Instructions Recorded Confirmed Last Taken Type Aspirin 81 mg PO DAILY 12/30/18 12/30/18 12/30/18 History AtorvaSTATin 40 mg PO HS 12/30/18 12/30/18 12/28/18 History Clopidogrel Bisulfate [Clopidogrel] 75 mg PO DAILY 12/30/18 12/30/18 12/28/18 History Furosemide 40 mg PO DAILY 12/30/18 12/30/18 12/28/18 History Gabapentin [Neurontin] 300 mg PO HS 12/30/18 12/30/18 12/28/18 History Losartan [Cozaar] 50 mg .ROUTE DAILY 12/30/18 12/30/18 12/28/18 History Metformin ER (Nf) 500 gm .ROUTE BID 12/30/18 12/30/18 12/28/18 History Metoprolol 50 mg PO DAILY 12/30/18 12/30/18 12/28/18 History Potassium 10 meq PO DAILY 12/30/18 12/30/18 12/28/18 History Ropinirole HCl 1 mg PO DAILY 12/30/18 12/30/18 12/28/18 History Sertraline 25 mg PO DAILY 12/30/18 12/30/18 12/28/18 History Sertraline 75 mg PO DAILY 12/30/18 12/30/18 12/28/18 History Active Medications: Generic Name Dose Route Start Last Admin Trade Name Freq PRN Reason Stop Dose Admin Acetaminophen 650 mg 12/29/18 04:49 12/30/18 08:33 Tylenol MN 650 mg Q4H PRN Administration Fever >101 Albuterol/Ipratropium 1 ampul 01/01/19 14:00 01/13/19 13:00 Duoneb *Not For Prn Use* IH 1 ampul Q6HRT WENDY Administration Apixaban 5 mg 01/12/19 22:00 01/13/19 10:57 Eliquis PO 5 mg Q12HR WENDY Administration Protocol Atorvastatin Calcium 40 mg 01/04/19 22:00 01/12/19 21:46 Lipitor PO 40 mg QHS WENDY Administration Clopidogrel Bisulfate 75 mg 01/12/19 21:00 01/13/19 10:57 Plavix PO 75 mg QDAY WENDY Administration Dextrose 50 ml 12/29/18 04:47 D50w (25gm) Syringe IV PRN PRN Hypoglycemia Famotidine 20 mg 01/04/19 10:00 01/13/19 09:24 Pepcid PO 20 mg BID WENDY Administration Folic Acid 1 mg 01/06/19 12:00 01/13/19 09:46 Folvite PO 1 mg QDAY WENDY Administration Furosemide 40 mg 01/11/19 10:00 01/13/19 09:49 Lasix IV Not Given 1000 WENDY Gabapentin 300 mg 01/10/19 22:00 01/12/19 21:45 Neurontin PO 300 mg HS WENDY Administration Haloperidol Lactate 5 mg 01/07/19 11:33 01/12/19 02:21 Haldol IM 5 mg Q6H PRN Administration Agitation Hydralazine HCl 10 mg 01/01/19 13:23 Apresoline IV Q4HR PRN SBP >/=170 Insulin Human Regular 0 units 01/04/19 11:30 01/13/19 08:12 Humulin R SUB-Q Not Given ACHS [facility] Protocol Levetiracetam 500 mg 01/04/19 10:00 01/13/19 09:24 Keppra PO 500 mg BID WENDY Administration Losartan Potassium 50 mg 01/04/19 11:00 01/13/19 09:48 Cozaar PO Not Given DAILY [facility] Metformin HCl 500 mg 01/10/19 17:00 01/13/19 08:40 Glucophage Xr PO 500 mg BIDDIAB WENDY Administration Metoprolol Tartrate 12.5 mg 01/03/19 11:00 01/13/19 09:49 Lopressor PO Not Given BID WENDY Ondansetron HCl 4 mg 12/29/18 04:49 Zofran IV Q8H PRN Nausea And Vomiting Quetiapine Fumarate 50 mg 01/08/19 22:00 01/12/19 21:46 Seroquel PO 50 mg QHS WENDY Administration Ropinirole HCl 1 mg 01/11/19 10:00 01/13/19 09:24 Requip PO 1 mg DAILY WENDY Administration Sertraline HCl 100 mg 01/11/19 10:00 01/13/19 09:25 Zoloft PO 100 mg QDAY WENDY Administration
--- NOTE | 2019-01-13 14:33 | Progress Note ---
Assessment and Plan Acute Hypoxic Respiratory failure- s/p extubated 01/01, now on supplemental oxygen NC at 3L Seizure Disorder DVT bilateral lower extremity Sepsis Right sided Pneumonia Large Right sided Pleural effusion- s/p chest tube Shock syndrome questionable septic versus cardiogenic Hypokalemia Morbid Obesity Thrombocytopenia Non ST elevated TX type II Presumed ischemic cardiomyopathy status post CABG Acute metabolic encephalopathy, much improved Hyponatremia Hypocalcemia History of CVA 2 years ago -wean FIO2 for O2 sats 88-90% -PT/OT/Mobility -ABG prn -Bronchodilators -Resume plavix, no further interventions planned -Gentle diuresis while monitoring renal function, hemodynamics and electrolyte profile - continue chronic home medications per attending - continue accuchecks with glycemic control for target glucose of 140-180 mg/dL - Maintenance of sleep-wake cycle - Influenza and pneumonia vaccination per protocol -Discharge planning. Discussed with hospitalist service Continue all supportive care. Patient has in bed for the last 2 days, need to increase activity and mobility to facilitate discharge planning Out patient pulmonary follow up on discharge PROGNOSIS: FAIR CONDITION: IMPROVING CODE STATUS: FULL CODE Subjective Date of service: 01/13/19 Principal diagnosis: dvt and low plt Interval history: Acute hypoxemic hypercapnic respiratory failure s/p MVS; Bilateral pleural effusions, complex looking on the right; Right lung complete atelectasis; Right pneumonia (appears to be community-acquired); Severe sepsis with shock, Seen and examined at bedside; 24hour events reviewed; nursing and respiratory care staff consulted; no adverse overnight events reported to me; he is on oxygen therapy at 35% venturi mask; no N/V/F/C; no fevers, no nausea or vomiting, BIPAP at night. CTscan and CXR films reviewed, not enough pleural fluid for any further thoracentesis. Radiologist is of the opinion that the density seen in the pleu ral space is adipose tissue Objective Vital Signs - 12hr 01/13/19 01/13/19 01/13/19 02:40 07:26 08:13 Temperature 98.1 F Pulse Rate 75 Pulse Rate [ 77 Bilateral] Respiratory 16 Rate Respiratory 16 Rate [Bilateral ] Blood Pressure 106/76 O2 Sat by Pulse 95 96 Oximetry 01/13/19 01/13/19 01/13/19 09:12 09:30 09:33 Temperature Pulse Rate 72 Pulse Rate [ 74 85 Bilateral] Respiratory Rate Respiratory 16 16 Rate [Bilateral ] Blood Pressure 106/42 O2 Sat by Pulse 96 Oximetry 01/13/19 01/13/19 01/13/19 09:48 09:49 12:46 Temperature 97.3 F L Pulse Rate 72 72 79 Pulse Rate [ Bilateral] Respiratory 18 Rate Respiratory Rate [Bilateral ] Blood Pressure 106/42 106/42 125/66 O2 Sat by Pulse 98 93 Oximetry 01/13/19 01/13/19 01/13/19 13:00 13:10 13:11 Temperature Pulse Rate Pulse Rate [ 79 88 Bilateral] Respiratory Rate Respiratory 15 15 Rate [Bilateral ] Blood Pressure O2 Sat by Pulse 96 Oximetry 01/13/19 13:42 Temperature 98.2 F Pulse Rate 83 Pulse Rate [ Bilateral] Respiratory 22 Rate Respiratory Rate [Bilateral ] Blood Pressure 120/59 O2 Sat by Pulse 90 Oximetry Constitutional: alert, appears uncomfortable, other (elderly looking morbidly obese CM normocephalic and withmildly increased work of breathing at rest) Eyes: non-icteric ENT: oropharynx moist Neck: supple, no lymphadenopathy, no JVD, other (large neck circumference) Effort: mildly labored Ascultation: Bilateral: diminished breath sounds, rhonchi (bases), other (Right chest tube) Percussion: Bilateral: not dull Cardiovascular: regular rate and rhythm, other (No R/M) Gastrointestinal: normoactive bowel sounds, soft, non-tender, non-distended Integumentary: normal Extremities: no cyanosis, pink and warm, pulses normal, no ischemia or petechiae, edema (1+) Neurologic: normal mental status, non-focal exam (grossly), pupils equal and round, CN II-XII normal, motor strength normal and Psychiatric: mood appropriate, affect normal CBC and BMP: 01/11/19 04:09 01/13/19 10:04 ABG, PT/INR, D-dimer: ABG POC ABG pH 7.318 (7.35-7.45) L 01/02/19 11:21 POC ABG pCO2 56.7 (35-45) H 01/02/19 11:21 POC ABG pO2 215 (80-105) H 01/02/19 11:21 POC ABG HCO3 29.1 (22-26 mml/L) 01/02/19 11:21 POC ABG Total CO2 31 (23-27mmol/L) 01/02/19 11:21 POC ABG O2 Sat 100 01/02/19 11:21 PT/INR, D-dimer PT 16.5 Sec. (12.2-14.9) H 12/30/18 18:17 INR 1.25 (0.87-1.13) H 12/30/18 18:17 D-Dimer 815.50 ng/mlDDU (0-234) H 12/28/18 23:58 Abnormal lab findings: Abnormal Labs 12/28/18 12/28/18 12/28/18 23:58 23:58 23:58 WBC RBC 2.24 L Hgb 6.7 L Hct 20.9 L RDW 16.4 H Plt Count 99 L Lymph % (Auto) 10.7 L Lamb % (Auto) 7.9 H Lymph # 0.6 L Lamb # Seg Neutrophils % 80.7 H PT INR D-Dimer 815.50 H Heparin Anti-Xa Level POC ABG pH POC ABG pCO2 POC ABG pO2 Sodium 148 H Potassium 2.3 L* Chloride 128.4 H Carbon Dioxide 12 L BUN Creatinine 0.4 L Glucose POC Glucose Lactic Acid Calcium 5.0 L* Phosphorus Iron TIBC Total Bilirubin AST ALT < 5 L Lactate Dehydrogenase Total Creatine Kinase 44 L CK-MB (CK-2) CK-MB (CK-2) Rel Index 4.3 H Troponin T C-Reactive Protein NT-Pro-B Natriuret Pep Total Protein 2.3 L Albumin 1.1 L HDL Cholesterol Folate Ur Specific Z[place]inger Urine WBC (Auto) Crossmatch 12/28/18 12/29/18 12/29/18 23:58 00:27 01:53 WBC RBC Hgb Hct RDW Plt Count Lymph % (Auto) Lamb % (Auto) Lymph # Lamb # Seg Neutrophils % PT INR D-Dimer Heparin Anti-Xa Level POC ABG pH 7.169 L POC ABG pCO2 POC ABG pO2 Sodium Potassium Chloride Carbon Dioxide BUN Creatinine Glucose POC Glucose Lactic Acid Calcium Phosphorus Iron TIBC Total Bilirubin AST ALT Lactate Dehydrogenase Total Creatine Kinase CK-MB (CK-2) CK-MB (CK-2) Rel Index Troponin T C-Reactive Protein NT-Pro-B Natriuret Pep 1209 H Total Protein Albumin HDL Cholesterol Folate Ur Specific [place]inger Urine WBC (Auto) Crossmatch See Detail 12/29/18 12/29/18 12/29/18 03:00 05:02 08:34 WBC RBC Hgb Hct RDW Plt Count Lymph % (Auto) Lamb % (Auto) Lymph # Lamb # Seg Neutrophils % PT INR D-Dimer Heparin Anti-Xa Level POC ABG pH 7.225 L POC ABG pCO2 57.9 H POC ABG pO2 Sodium Potassium Chloride Carbon Dioxide BUN Creatinine Glucose POC Glucose Lactic Acid Calcium Phosphorus Iron TIBC Total Bilirubin AST ALT Lactate Dehydrogenase Total Creatine Kinase 344 H CK-MB (CK-2) 7.9 H CK-MB (CK-2) Rel Index Troponin T 0.103 H* D C-Reactive Protein NT-Pro-B Natriuret Pep Total Protein Albumin HDL Cholesterol 34 L Folate Ur Specific [place]inger 1.033 H Urine WBC (Auto) 31.0 H Crossmatch 12/29/18 12/29/18 12/29/18 08:34 08:53 12:51 WBC RBC Hgb Hct RDW Plt Count Lymph % (Auto) Lamb % (Auto) Lymph # Lamb # Seg Neutrophils % PT INR D-Dimer Heparin Anti-Xa Level POC ABG pH POC ABG pCO2 POC ABG pO2 Sodium Potassium 5.7 H D Chloride Carbon Dioxide BUN 21 H Creatinine Glucose 124 H POC Glucose 119 H Lactic Acid Calcium Phosphorus Iron TIBC Total Bilirubin AST ALT Lactate Dehydrogenase Total Creatine Kinase 837 H CK-MB (CK-2) 10.5 H CK-MB (CK-2) Rel Index Troponin T 0.084 H C-Reactive Protein NT-Pro-B Natriuret Pep Total Protein Albumin HDL Cholesterol Folate Ur Specific [place] Urine WBC (Auto) Crossmatch 12/29/18 12/29/18 12/29/18 12:51 12:51 15:02 WBC RBC Hgb Hct RDW 16.0 H Plt Count Lymph % (Auto) Lamb % (Auto) 13.3 H Lymph # Lamb # 1.4 H Seg Neutrophils % PT INR D-Dimer Heparin Anti-Xa Level POC ABG pH POC ABG pCO2 POC ABG pO2 Sodium Potassium 5.4 H Chloride Carbon Dioxide 19 L 17 L BUN 21 H 21 H Creatinine Glucose 116 H 115 H POC Glucose Lactic Acid Calcium Phosphorus Iron TIBC Total Bilirubin 1.50 H AST 43 H ALT Lactate Dehydrogenase 405 H Total Creatine Kinase CK-MB (CK-2) CK-MB (CK-2) Rel Index Troponin T C-Reactive Protein NT-Pro-B Natriuret Pep Total Protein 6.2 L D Albumin 3.1 L HDL Cholesterol Folate Ur Specific [place] Urine WBC (Auto) Crossmatch 12/29/18 12/29/18 12/29/18 15:03 16:46 16:46 WBC RBC Hgb Hct RDW Plt Count Lymph % (Auto) Lamb % (Auto) Lymph # Lamb # Seg Neutrophils % PT INR D-Dimer Heparin Anti-Xa Level POC ABG pH POC ABG pCO2 POC ABG pO2 Sodium Potassium Chloride Carbon Dioxide BUN Creatinine Glucose POC Glucose 121 H Lactic Acid 2.70 H* Calcium Phosphorus Iron TIBC Total Bilirubin AST ALT Lactate Dehydrogenase Total Creatine Kinase CK-MB (CK-2) CK-MB (CK-2) Rel Index Troponin T C-Reactive Protein 2.80 H NT-Pro-B Natriuret Pep Total Protein Albumin HDL Cholesterol Folate Ur Specific [place] Urine WBC (Auto) Crossmatch 12/29/18 12/29/18 12/29/18 16:50 17:37 19:37 WBC RBC Hgb Hct RDW Plt Count Lymph % (Auto) Lamb % (Auto) Lymph # Lamb # Seg Neutrophils % PT INR D-Dimer Heparin Anti-Xa Level POC ABG pH POC ABG pCO2 POC ABG pO2 248 H Sodium Potassium Chloride Carbon Dioxide 21 L BUN 21 H Creatinine Glucose 123 H POC Glucose 113 H Lactic Acid Calcium Phosphorus Iron TIBC Total Bilirubin AST ALT Lactate Dehydrogenase Total Creatine Kinase CK-MB (CK-2) CK-MB (CK-2) Rel Index Troponin T C-Reactive Protein NT-Pro-B Natriuret Pep Total Protein Albumin HDL Cholesterol Folate Ur Specific [place]inger Urine WBC (Auto) Crossmatch 12/29/18 12/29/18 12/30/18 20:10 21:36 04:43 WBC RBC Hgb Hct RDW Plt Count Lymph % (Auto) Lamb % (Auto) Lymph # Lamb # Seg Neutrophils % PT INR D-Dimer Heparin Anti-Xa Level POC ABG pH 7.327 L POC ABG pCO2 POC ABG pO2 79 L Sodium Potassium Chloride Carbon Dioxide BUN Creatinine Glucose POC Glucose Lactic Acid 2.70 H* 2.80 H* Calcium Phosphorus Iron TIBC Total Bilirubin AST ALT Lactate Dehydrogenase Total Creatine Kinase CK-MB (CK-2) CK-MB (CK-2) Rel Index Troponin T C-Reactive Protein NT-Pro-B Natriuret Pep Total Protein Albumin HDL Cholesterol Folate Ur Specific [place]inger Urine WBC (Auto) Crossmatch 12/30/18 12/30/18 12/30/18 11:42 11:42 13:43 WBC RBC Hgb Hct RDW 16.4 H Plt Count 125 L Lymph % (Auto) Lamb % (Auto) Lymph # Lamb # Seg Neutrophils % PT INR D-Dimer Heparin Anti-Xa Level POC ABG pH 7.225 L POC ABG pCO2 54.7 H POC ABG pO2 Sodium Potassium Chloride 108.8 H Carbon Dioxide BUN Creatinine Glucose 105 H POC Glucose Lactic Acid Calcium 8.2 L Phosphorus Iron TIBC Total Bilirubin AST ALT Lactate Dehydrogenase Total Creatine Kinase CK-MB (CK-2) CK-MB (CK-2) Rel Index Troponin T C-Reactive Protein NT-Pro-B Natriuret Pep Total Protein Albumin HDL Cholesterol Folate Ur Specific [place]inger Urine WBC (Auto) Crossmatch 12/30/18 12/30/18 12/30/18 13:53 18:17 18:17 WBC RBC Hgb Hct RDW Plt Count 114 L Lymph % (Auto) Lamb % (Auto) Lymph # Lamb # Seg Neutrophils % PT 16.5 H INR 1.25 H D-Dimer Heparin Anti-Xa Level POC ABG pH POC ABG pCO2 POC ABG pO2 Sodium Potassium Chloride Carbon Dioxide BUN Creatinine Glucose POC Glucose Lactic Acid Calcium Phosphorus Iron TIBC Total Bilirubin AST ALT Lactate Dehydrogenase Total Creatine Kinase CK-MB (CK-2) CK-MB (CK-2) Rel Index Troponin T 0.060 H D C-Reactive Protein NT-Pro-B Natriuret Pep Total Protein Albumin HDL Cholesterol Folate Ur Specific [place]inger Urine WBC (Auto) Crossmatch 12/31/18 12/31/18 12/31/18 00:31 04:39 05:30 WBC RBC Hgb 10.9 L Hct 32.4 L RDW 16.1 H Plt Count 97 L Lymph % (Auto) Lamb % (Auto) Lymph # Lamb # Seg Neutrophils % PT INR D-Dimer Heparin Anti-Xa Level 0.12 L POC ABG pH 7.337 L POC ABG pCO2 POC ABG pO2 Sodium Potassium Chloride Carbon Dioxide BUN Creatinine Glucose POC Glucose Lactic Acid Calcium Phosphorus Iron TIBC Total Bilirubin AST ALT Lactate Dehydrogenase Total Creatine Kinase CK-MB (CK-2) CK-MB (CK-2) Rel Index Troponin T C-Reactive Protein NT-Pro-B Natriuret Pep Total Protein Albumin HDL Cholesterol Folate Ur Specific [place]inger Urine WBC (Auto) Crossmatch 12/31/18 12/31/18 12/31/18 05:30 16:27 18:40 WBC RBC Hgb Hct RDW Plt Count Lymph % (Auto) Lamb % (Auto) Lymph # Lamb # Seg Neutrophils % PT INR D-Dimer Heparin Anti-Xa Level POC ABG pH 7.246 L POC ABG pCO2 52.6 H POC ABG pO2 Sodium Potassium Chloride 110.5 H Carbon Dioxide BUN Creatinine Glucose 107 H POC Glucose 109 H Lactic Acid Calcium 8.2 L Phosphorus Iron TIBC Total Bilirubin 1.30 H AST ALT Lactate Dehydrogenase Total Creatine Kinase CK-MB (CK-2) CK-MB (CK-2) Rel Index Troponin T C-Reactive Protein NT-Pro-B Natriuret Pep Total Protein 5.1 L Albumin 2.3 L HDL Cholesterol Folate Ur Specific [place]inger Urine WBC (Auto) Crossmatch 12/31/18 01/01/19 01/01/19 21:37 03:05 04:25 WBC RBC Hgb Hct RDW Plt Count Lymph % (Auto) Lamb % (Auto) Lymph # Lamb # Seg Neutrophils % PT INR D-Dimer Heparin Anti-Xa Level POC ABG pH 7.278 L POC ABG pCO2 50.6 H POC ABG pO2 111 H Sodium Potassium Chloride Carbon Dioxide BUN Creatinine Glucose POC Glucose 108 H 147 H Lactic Acid Calcium Phosphorus Iron TIBC Total Bilirubin AST ALT Lactate Dehydrogenase Total Creatine Kinase CK-MB (CK-2) CK-MB (CK-2) Rel Index Troponin T C-Reactive Protein NT-Pro-B Natriuret Pep Total Protein Albumin HDL Cholesterol Folate Ur Specific [place]inger Urine WBC (Auto) Crossmatch 01/01/19 01/01/19 01/01/19 04:42 04:42 06:32 WBC 3.9 L RBC 3.54 L Hgb 10.7 L Hct 31.6 L RDW 16.3 H Plt Count 83 L Lymph % (Auto) Lamb % (Auto) Lymph # Lamb # Seg Neutrophils % PT INR D-Dimer Heparin Anti-Xa Level POC ABG pH POC ABG pCO2 POC ABG pO2 Sodium Potassium Chloride 109.8 H Carbon Dioxide BUN Creatinine Glucose 134 H POC Glucose 143 H Lactic Acid Calcium 8.1 L Phosphorus Iron TIBC Total Bilirubin AST ALT Lactate Dehydrogenase Total Creatine Kinase CK-MB (CK-2) CK-MB (CK-2) Rel Index Troponin T C-Reactive Protein NT-Pro-B Natriuret Pep Total Protein 4.9 L Albumin 2.3 L HDL Cholesterol Folate Ur Specific [place]inger Urine WBC (Auto) Crossmatch 01/01/19 01/01/19 01/01/19 07:33 11:37 13:55 WBC RBC Hgb Hct RDW Plt Count Lymph % (Auto) Lamb % (Auto) Lymph # Lamb # Seg Neutrophils % PT INR D-Dimer Heparin Anti-Xa Level POC ABG pH 7.242 L POC ABG pCO2 55.3 H POC ABG pO2 Sodium Potassium Chloride Carbon Dioxide BUN Creatinine Glucose POC Glucose 137 H 133 H Lactic Acid Calcium Phosphorus Iron TIBC Total Bilirubin AST ALT Lactate Dehydrogenase Total Creatine Kinase CK-MB (CK-2) CK-MB (CK-2) Rel Index Troponin T C-Reactive Protein NT-Pro-B Natriuret Pep Total Protein Albumin HDL Cholesterol Folate Ur Specific [place]inger Urine WBC (Auto) Crossmatch 01/01/19 01/01/19 01/01/19 15:44 16:51 21:35 WBC RBC Hgb Hct RDW Plt Count Lymph % (Auto) Lamb % (Auto) Lymph # Lamb # Seg Neutrophils % PT INR D-Dimer Heparin Anti-Xa Level POC ABG pH 7.298 L POC ABG pCO2 50.6 H POC ABG pO2 Sodium Potassium Chloride Carbon Dioxide BUN Creatinine Glucose POC Glucose 139 H 106 H Lactic Acid Calcium Phosphorus Iron TIBC Total Bilirubin AST ALT Lactate Dehydrogenase Total Creatine Kinase CK-MB (CK-2) CK-MB (CK-2) Rel Index Troponin T C-Reactive Protein NT-Pro-B Natriuret Pep Total Protein Albumin HDL Cholesterol Folate Ur Specific [place]inger Urine WBC (Auto) Crossmatch 01/02/19 01/02/19 01/02/19 03:13 04:40 05:09 WBC 3.9 L RBC Hgb Hct RDW 16.1 H Plt Count 94 L Lymph % (Auto) 7.5 L Lamb % (Auto) 14.2 H Lymph # 0.3 L Lamb # Seg Neutrophils % 76.5 H PT INR D-Dimer Heparin Anti-Xa Level POC ABG pH 7.206 L POC ABG pCO2 65.8 H POC ABG pO2 62 L Sodium Potassium Chloride Carbon Dioxide BUN Creatinine Glucose POC Glucose 124 H Lactic Acid Calcium Phosphorus Iron TIBC Total Bilirubin AST ALT Lactate Dehydrogenase Total Creatine Kinase CK-MB (CK-2) CK-MB (CK-2) Rel Index Troponin T C-Reactive Protein NT-Pro-B Natriuret Pep Total Protein Albumin HDL Cholesterol Folate Ur Specific [place]inger Urine WBC (Auto) Crossmatch 01/02/19 01/02/19 01/02/19 05:09 05:09 05:32 WBC RBC Hgb Hct RDW Plt Count Lymph % (Auto) Lamb % (Auto) Lymph # Lamb # Seg Neutrophils % PT INR D-Dimer Heparin Anti-Xa Level POC ABG pH POC ABG pCO2 POC ABG pO2 Sodium Potassium Chloride 107.4 H Carbon Dioxide BUN Creatinine Glucose 133 H POC Glucose 130 H Lactic Acid Calcium 8.3 L Phosphorus Iron 34 L TIBC 231 L Total Bilirubin AST ALT Lactate Dehydrogenase Total Creatine Kinase CK-MB (CK-2) CK-MB (CK-2) Rel Index Troponin T C-Reactive Protein NT-Pro-B Natriuret Pep Total Protein Albumin HDL Cholesterol Folate 6.01 L Ur Specific [place]inger Urine WBC (Auto) Crossmatch 01/02/19 01/02/19 01/02/19 10:25 11:21 11:42 WBC RBC Hgb Hct RDW Plt Count Lymph % (Auto) Lamb % (Auto) Lymph # Lamb # Seg Neutrophils % PT INR D-Dimer Heparin Anti-Xa Level POC ABG pH 7.318 L POC ABG pCO2 56.7 H POC ABG pO2 215 H Sodium Potassium Chloride Carbon Dioxide BUN Creatinine Glucose POC Glucose 108 H 152 H Lactic Acid Calcium Phosphorus Iron TIBC Total Bilirubin AST ALT Lactate Dehydrogenase Total Creatine Kinase CK-MB (CK-2) CK-MB (CK-2) Rel Index Troponin T C-Reactive Protein NT-Pro-B Natriuret Pep Total Protein Albumin HDL Cholesterol Folate Ur Specific [place] Urine WBC (Auto) Crossmatch 01/02/19 01/03/19 01/03/19 17:37 04:28 10:57 WBC RBC Hgb 11.6 L Hct RDW Plt Count 105 L Lymph % (Auto) Lamb % (Auto) Lymph # Lamb # Seg Neutrophils % PT INR D-Dimer Heparin Anti-Xa Level POC ABG pH POC ABG pCO2 POC ABG pO2 Sodium Potassium Chloride Carbon Dioxide BUN Creatinine Glucose 111 H POC Glucose 107 H Lactic Acid Calcium Phosphorus Iron TIBC Total Bilirubin AST ALT Lactate Dehydrogenase Total Creatine Kinase CK-MB (CK-2) CK-MB (CK-2) Rel Index Troponin T C-Reactive Protein NT-Pro-B Natriuret Pep Total Protein Albumin HDL Cholesterol Folate Ur Specific [place]inger Urine WBC (Auto) Crossmatch 01/03/19 01/03/19 01/03/19 15:16 17:33 20:35 WBC RBC Hgb Hct RDW Plt Count Lymph % (Auto) Lamb % (Auto) Lymph # Lamb # Seg Neutrophils % PT INR D-Dimer Heparin Anti-Xa Level POC ABG pH POC ABG pCO2 POC ABG pO2 Sodium Potassium Chloride Carbon Dioxide BUN Creatinine Glucose POC Glucose 135 H 166 H 114 H Lactic Acid Calcium Phosphorus Iron TIBC Total Bilirubin AST ALT Lactate Dehydrogenase Total Creatine Kinase CK-MB (CK-2) CK-MB (CK-2) Rel Index Troponin T C-Reactive Protein NT-Pro-B Natriuret Pep Total Protein Albumin HDL Cholesterol Folate Ur Specific [place]inger Urine WBC (Auto) Crossmatch 01/04/19 01/04/19 01/04/19 01:32 04:47 04:47 WBC 4.2 L RBC Hgb 11.5 L Hct 34.9 L RDW 15.8 H Plt Count 119 L Lymph % (Auto) Lamb % (Auto) Lymph # Lamb # Seg Neutrophils % PT INR D-Dimer Heparin Anti-Xa Level POC ABG pH POC ABG pCO2 POC ABG pO2 Sodium Potassium 3.3 L Chloride Carbon Dioxide BUN Creatinine Glucose 110 H POC Glucose 114 H Lactic Acid Calcium 8.3 L Phosphorus Iron TIBC Total Bilirubin AST ALT Lactate Dehydrogenase Total Creatine Kinase CK-MB (CK-2) CK-MB (CK-2) Rel Index Troponin T C-Reactive Protein NT-Pro-B Natriuret Pep Total Protein Albumin HDL Cholesterol Folate Ur Specific [place]inger Urine WBC (Auto) Crossmatch 01/04/19 01/04/19 01/04/19 08:51 11:41 16:25 WBC RBC Hgb Hct RDW Plt Count Lymph % (Auto) Lamb % (Auto) Lymph # Lamb # Seg Neutrophils % PT INR D-Dimer Heparin Anti-Xa Level POC ABG pH POC ABG pCO2 POC ABG pO2 Sodium Potassium Chloride Carbon Dioxide BUN Creatinine Glucose POC Glucose 122 H 146 H 142 H Lactic Acid Calcium Phosphorus Iron TIBC Total Bilirubin AST ALT Lactate Dehydrogenase Total Creatine Kinase CK-MB (CK-2) CK-MB (CK-2) Rel Index Troponin T C-Reactive Protein NT-Pro-B Natriuret Pep Total Protein Albumin HDL Cholesterol Folate Ur Specific [place]inger Urine WBC (Auto) Crossmatch 01/04/19 01/05/19 01/05/19 21:16 04:41 04:41 WBC RBC Hgb Hct RDW 15.9 H Plt Count 126 L Lymph % (Auto) Lamb % (Auto) Lymph # Lamb # Seg Neutrophils % PT INR D-Dimer Heparin Anti-Xa Level POC ABG pH POC ABG pCO2 POC ABG pO2 Sodium Potassium 3.4 L Chloride Carbon Dioxide BUN Creatinine Glucose 128 H POC Glucose 140 H Lactic Acid Calcium Phosphorus Iron TIBC Total Bilirubin AST ALT Lactate Dehydrogenase Total Creatine Kinase CK-MB (CK-2) CK-MB (CK-2) Rel Index Troponin T C-Reactive Protein NT-Pro-B Natriuret Pep Total Protein Albumin HDL Cholesterol Folate Ur Specific [place] Urine WBC (Auto) Crossmatch 01/05/19 01/05/19 01/05/19 08:10 11:52 17:24 WBC RBC Hgb Hct RDW Plt Count Lymph % (Auto) Lamb % (Auto) Lymph # Lamb # Seg Neutrophils % PT INR D-Dimer Heparin Anti-Xa Level POC ABG pH POC ABG pCO2 POC ABG pO2 Sodium Potassium Chloride Carbon Dioxide BUN Creatinine Glucose POC Glucose 134 H 178 H 124 H Lactic Acid Calcium Phosphorus Iron TIBC Total Bilirubin AST ALT Lactate Dehydrogenase Total Creatine Kinase CK-MB (CK-2) CK-MB (CK-2) Rel Index Troponin T C-Reactive Protein NT-Pro-B Natriuret Pep Total Protein Albumin HDL Cholesterol Folate Ur Specific [place]inger Urine WBC (Auto) Crossmatch 01/05/19 01/06/19 01/06/19 21:36 03:12 03:12 WBC RBC Hgb Hct RDW 16.7 H Plt Count 138 L Lymph % (Auto) Lamb % (Auto) Lymph # Lamb # Seg Neutrophils % PT INR D-Dimer Heparin Anti-Xa Level POC ABG pH POC ABG pCO2 POC ABG pO2 Sodium Potassium 3.4 L Chloride Carbon Dioxide BUN Creatinine Glucose 112 H POC Glucose 119 H Lactic Acid Calcium Phosphorus Iron TIBC Total Bilirubin AST ALT Lactate Dehydrogenase Total Creatine Kinase CK-MB (CK-2) CK-MB (CK-2) Rel Index Troponin T C-Reactive Protein NT-Pro-B Natriuret Pep Total Protein Albumin HDL Cholesterol Folate Ur Specific [place]inger Urine WBC (Auto) Crossmatch 01/06/19 01/06/19 01/06/19 08:11 10:22 10:22 WBC RBC Hgb Hct RDW 16.7 H Plt Count Lymph % (Auto) Lamb % (Auto) Lymph # Lamb # Seg Neutrophils % PT INR D-Dimer Heparin Anti-Xa Level POC ABG pH POC ABG pCO2 POC ABG pO2 Sodium Potassium 3.5 L Chloride Carbon Dioxide BUN Creatinine Glucose 151 H POC Glucose 112 H Lactic Acid Calcium Phosphorus Iron TIBC Total Bilirubin AST ALT Lactate Dehydrogenase Total Creatine Kinase CK-MB (CK-2) CK-MB (CK-2) Rel Index Troponin T C-Reactive Protein NT-Pro-B Natriuret Pep Total Protein Albumin HDL Cholesterol Folate Ur Specific [place] Urine WBC (Auto) Crossmatch 01/06/19 01/06/19 01/06/19 11:51 17:04 17:57 WBC RBC Hgb Hct RDW Plt Count Lymph % (Auto) Lamb % (Auto) Lymph # Lamb # Seg Neutrophils % PT INR D-Dimer Heparin Anti-Xa Level POC ABG pH POC ABG pCO2 POC ABG pO2 Sodium Potassium Chloride Carbon Dioxide BUN Creatinine Glucose POC Glucose 148 H 135 H Lactic Acid Calcium Phosphorus Iron TIBC Total Bilirubin AST ALT Lactate Dehydrogenase Total Creatine Kinase CK-MB (CK-2) CK-MB (CK-2) Rel Index Troponin T C-Reactive Protein NT-Pro-B Natriuret Pep 4783 H Total Protein Albumin HDL Cholesterol Folate Ur Specific [place]inger Urine WBC (Auto) Crossmatch 01/06/19 01/07/19 01/07/19 20:59 08:35 10:34 WBC RBC Hgb Hct RDW Plt Count Lymph % (Auto) Lamb % (Auto) Lymph # Lamb # Seg Neutrophils % PT INR D-Dimer Heparin Anti-Xa Level POC ABG pH POC ABG pCO2 POC ABG pO2 Sodium Potassium Chloride Carbon Dioxide BUN Creatinine Glucose 129 H POC Glucose 115 H 143 H Lactic Acid Calcium Phosphorus Iron TIBC Total Bilirubin AST ALT Lactate Dehydrogenase Total Creatine Kinase CK-MB (CK-2) CK-MB (CK-2) Rel Index Troponin T C-Reactive Protein NT-Pro-B Natriuret Pep Total Protein Albumin HDL Cholesterol Folate Ur Specific [place] Urine WBC (Auto) Crossmatch 01/07/19 01/07/19 01/07/19 11:31 16:16 20:49 WBC RBC Hgb Hct RDW Plt Count Lymph % (Auto) Lamb % (Auto) Lymph # Lamb # Seg Neutrophils % PT INR D-Dimer Heparin Anti-Xa Level POC ABG pH POC ABG pCO2 POC ABG pO2 Sodium Potassium Chloride Carbon Dioxide BUN Creatinine Glucose POC Glucose 144 H 133 H 138 H Lactic Acid Calcium Phosphorus Iron TIBC Total Bilirubin AST ALT Lactate Dehydrogenase Total Creatine Kinase CK-MB (CK-2) CK-MB (CK-2) Rel Index Troponin T C-Reactive Protein NT-Pro-B Natriuret Pep Total Protein Albumin HDL Cholesterol Folate Ur Specific [place]inger Urine WBC (Auto) Crossmatch 01/08/19 01/08/19 01/08/19 00:19 05:11 05:11 WBC RBC Hgb Hct RDW 16.9 H Plt Count Lymph % (Auto) Lamb % (Auto) Lymph # Lamb # Seg Neutrophils % PT INR D-Dimer Heparin Anti-Xa Level POC ABG pH POC ABG pCO2 POC ABG pO2 Sodium Potassium Chloride Carbon Dioxide BUN Creatinine Glucose 144 H POC Glucose 129 H Lactic Acid Calcium Phosphorus Iron TIBC Total Bilirubin AST ALT Lactate Dehydrogenase Total Creatine Kinase CK-MB (CK-2) CK-MB (CK-2) Rel Index Troponin T C-Reactive Protein NT-Pro-B Natriuret Pep Total Protein Albumin HDL Cholesterol Folate Ur Specific [place]inger Urine WBC (Auto) Crossmatch 01/08/19 01/08/19 01/08/19 07:32 11:56 16:40 WBC RBC Hgb Hct RDW Plt Count Lymph % (Auto) Lamb % (Auto) Lymph # Lamb # Seg Neutrophils % PT INR D-Dimer Heparin Anti-Xa Level POC ABG pH POC ABG pCO2 POC ABG pO2 Sodium Potassium Chloride Carbon Dioxide BUN Creatinine Glucose POC Glucose 134 H 162 H 166 H Lactic Acid Calcium Phosphorus Iron TIBC Total Bilirubin AST ALT Lactate Dehydrogenase Total Creatine Kinase CK-MB (CK-2) CK-MB (CK-2) Rel Index Troponin T C-Reactive Protein NT-Pro-B Natriuret Pep Total Protein Albumin HDL Cholesterol Folate Ur Specific [place] Urine WBC (Auto) Crossmatch 01/08/19 01/09/19 01/09/19 21:36 08:42 11:41 WBC RBC Hgb Hct RDW Plt Count Lymph % (Auto) Lamb % (Auto) Lymph # Lamb # Seg Neutrophils % PT INR D-Dimer Heparin Anti-Xa Level POC ABG pH POC ABG pCO2 POC ABG pO2 Sodium Potassium Chloride Carbon Dioxide BUN Creatinine Glucose POC Glucose 166 H 114 H 136 H Lactic Acid Calcium Phosphorus Iron TIBC Total Bilirubin AST ALT Lactate Dehydrogenase Total Creatine Kinase CK-MB (CK-2) CK-MB (CK-2) Rel Index Troponin T C-Reactive Protein NT-Pro-B Natriuret Pep Total Protein Albumin HDL Cholesterol Folate Ur Specific [place] Urine WBC (Auto) Crossmatch 01/09/19 01/09/19 01/10/19 16:06 21:59 11:46 WBC RBC Hgb Hct RDW Plt Count Lymph % (Auto) Lamb % (Auto) Lymph # Lamb # Seg Neutrophils % PT INR D-Dimer Heparin Anti-Xa Level POC ABG pH POC ABG pCO2 POC ABG pO2 Sodium Potassium Chloride Carbon Dioxide BUN Creatinine Glucose POC Glucose 130 H 159 H 126 H Lactic Acid Calcium Phosphorus Iron TIBC Total Bilirubin AST ALT Lactate Dehydrogenase Total Creatine Kinase CK-MB (CK-2) CK-MB (CK-2) Rel Index Troponin T C-Reactive Protein NT-Pro-B Natriuret Pep Total Protein Albumin HDL Cholesterol Folate Ur Specific [place] Urine WBC (Auto) Crossmatch 01/10/19 01/10/19 01/11/19 16:45 22:41 04:09 WBC 4.4 L RBC Hgb Hct RDW 16.5 H Plt Count 131 L Lymph % (Auto) Lamb % (Auto) 11.8 H Lymph # 0.7 L Lamb # Seg Neutrophils % PT INR D-Dimer Heparin Anti-Xa Level POC ABG pH POC ABG pCO2 POC ABG pO2 Sodium Potassium Chloride Carbon Dioxide BUN Creatinine Glucose POC Glucose 136 H 132 H Lactic Acid Calcium Phosphorus Iron TIBC Total Bilirubin AST ALT Lactate Dehydrogenase Total Creatine Kinase CK-MB (CK-2) CK-MB (CK-2) Rel Index Troponin T C-Reactive Protein NT-Pro-B Natriuret Pep Total Protein Albumin HDL Cholesterol Folate Ur Specific [place] Urine WBC (Auto) Crossmatch 01/11/19 01/11/19 01/11/19 04:09 07:31 11:54 WBC RBC Hgb Hct RDW Plt Count Lymph % (Auto) Lamb % (Auto) Lymph # Lamb # Seg Neutrophils % PT INR D-Dimer Heparin Anti-Xa Level POC ABG pH POC ABG pCO2 POC ABG pO2 Sodium 146 H Potassium 3.4 L D Chloride 96.9 L Carbon Dioxide 40 H D BUN Creatinine 0.7 L Glucose 110 H POC Glucose 116 H 138 H Lactic Acid Calcium Phosphorus 2.30 L Iron TIBC Total Bilirubin AST ALT Lactate Dehydrogenase Total Creatine Kinase CK-MB (CK-2) CK-MB (CK-2) Rel Index Troponin T C-Reactive Protein NT-Pro-B Natriuret Pep Total Protein 5.4 L Albumin 2.6 L HDL Cholesterol Folate Ur Specific [place] Urine WBC (Auto) Crossmatch 01/11/19 01/12/19 01/12/19 16:33 03:04 08:23 WBC RBC Hgb Hct RDW Plt Count Lymph % (Auto) Lamb % (Auto) Lymph # Lamb # Seg Neutrophils % PT INR D-Dimer Heparin Anti-Xa Level POC ABG pH POC ABG pCO2 POC ABG pO2 Sodium Potassium Chloride Carbon Dioxide BUN Creatinine Glucose POC Glucose 147 H 106 H 128 H Lactic Acid Calcium Phosphorus Iron TIBC Total Bilirubin AST ALT Lactate Dehydrogenase Total Creatine Kinase CK-MB (CK-2) CK-MB (CK-2) Rel Index Troponin T C-Reactive Protein NT-Pro-B Natriuret Pep Total Protein Albumin HDL Cholesterol Folate Ur Specific [place] Urine WBC (Auto) Crossmatch 01/12/19 01/12/19 01/12/19 11:24 16:33 21:49 WBC RBC Hgb Hct RDW Plt Count Lymph % (Auto) Lamb % (Auto) Lymph # Lamb # Seg Neutrophils % PT INR D-Dimer Heparin Anti-Xa Level POC ABG pH POC ABG pCO2 POC ABG pO2 Sodium Potassium Chloride Carbon Dioxide BUN Creatinine Glucose POC Glucose 146 H 168 H 111 H Lactic Acid Calcium Phosphorus Iron TIBC Total Bilirubin AST ALT Lactate Dehydrogenase Total Creatine Kinase CK-MB (CK-2) CK-MB (CK-2) Rel Index Troponin T C-Reactive Protein NT-Pro-B Natriuret Pep Total Protein Albumin HDL Cholesterol Folate Ur Specific [place] Urine WBC (Auto) Crossmatch 01/13/19 01/13/19 01/13/19 07:30 10:04 11:41 WBC RBC Hgb Hct RDW Plt Count Lymph % (Auto) Lamb % (Auto) Lymph # Lamb # Seg Neutrophils % PT INR D-Dimer Heparin Anti-Xa Level POC ABG pH POC ABG pCO2 POC ABG pO2 Sodium Potassium Chloride 89.5 L Carbon Dioxide 46 H* BUN Creatinine 0.7 L Glucose 107 H POC Glucose 108 H 110 H Lactic Acid Calcium Phosphorus Iron TIBC Total Bilirubin AST ALT Lactate Dehydrogenase Total Creatine Kinase CK-MB (CK-2) CK-MB (CK-2) Rel Index Troponin T C-Reactive Protein NT-Pro-B Natriuret Pep Total Protein Albumin HDL Cholesterol Folate Ur Specific [place] Urine WBC (Auto) Crossmatch Allied health notes reviewed: nursing
--- NOTE | 2019-01-13 14:51 | Progress Note ---
Assessment and Plan Assessment and plan: 73-year-old male, with morbid obesity, HTN, CAD, s/p NV, Seizure, admitted after spouse found him on the floor with agonal breathing 10 mins after he went to bed. EMS was called and transported to the hospital in. He was diagnosed with acute respiratory failure, intubated in the ED. Patient was extubated on 01/01, put on BIPAP . Currently patient is on Ventimask because he mouth breathes, desaturates, and pull of NC, when sleeping. He was diagnosed with sepsis due to pneumonia, completed Antibiotics. He is also diagnosed with DVT both legs, seen by Dr. Rivera, was put on Arixtra. He had thrombocytopenia, now resolved. He is being switched to Eliquis since 01/07 . He pulled out Peripheral iv line and Mid line overnight 01/03, and also pulled out right chest tube overnight 01/04. He has been confused, agitated on and off. Started on on Haldol prn , and Seroquel nightly.mentation improved Diagnosis Acute Hypoxic Respiratory failure- s/p extubated 01/01 Seizure Disorder DVT bilateral lower extremity Sepsis Right sided Pneumonia Large Right sided Pleural effusion- s/p chest tube was placed, s/p removal by patient Shock syndrome questionable septic versus cardiogenic Hypokalemia Morbid Obesity Thrombocytopenia- resolved Non ST elevated NV type II Presumed ischemic cardiomyopathy status post CABG Toxic metabolic encephalopathy Severe Protein calorie malnutrition Hyponatremia Hypocalcemia History of CVA 2 years ago Acute metabolic encephalopathy Plan: acute resp failure on MV <96 hours Previously intubated, extubated on 01/01 , placed on BIPAP nocturnally, placed on Venti mass due to mouth breathing when asleep, and NC when awake CHF with bilat pleural effusions effusions improving with lasix, no longer needs repeat R thoracenteisis, restart eliquis and plavix and work on dc planning Septic vs cardiogenic shock optimize cardiac meds, off pressors -has completed empiric abx, no clear source, ID input appreciated, they signed off on 01/11 Monitor electrolytes and replete prn Dementia with behavioral disturbance, encephalopathy, sundowning -improved with psych meds, Ataxia; debility wants SOPHY placement Bilat LE DVT; on eliquis Thrombocytopenia might have been due to entensive DVT resolved, back on blood thinners History Interval history: Review of systems Constitutional: No fevers, no malaise, no joint pains CVS: No chest pain, no orthopnea, no dyspnea on exertion, no pedal edema GI: No abdominal pain, no diarrhea, no vomiting, no constipation Respiratory: No shortness of breath, no wheezing, no coughing Hospitalist Physical - Physical exam Narrative exam: General.: Appears well, no distress, nontoxic HEENT: Moist mucous membranes, extraocular muscles intact, no lymphadenopathy Neck: supple Cardiac: S1-S2 heard Lungs: dull in bases Abdomen: soft , nontender, nondistended, bowel sounds positive Extremities: no edema clubbing or cyanosis Skin: no rash or lesions Neurologic: no gross focal deficits, Psych: calm, and cooperative - Constitutional Vitals: Temp Pulse Resp BP Pulse Ox 98.2 F 83 22 120/59 90 01/13/19 13:42 01/13/19 13:42 01/13/19 13:42 01/13/19 13:42 01/13/19 13:42 General appearance: Present: no acute distress, obese Results - Labs CBC & Chem 7: 01/15/19 07:21 01/15/19 07:21 Labs: Laboratory Last Values WBC 4.4 K/mm3 (4.5-11.0) L 01/11/19 04:09 RBC 4.32 M/mm3 (3.65-5.03) 01/11/19 04:09 Hgb 12.6 gm/dl (11.8-15.2) 01/11/19 04:09 Hct 38.6 % (35.5-45.6) 01/11/19 04:09 MCV 89 fl (84-94) 01/11/19 04:09 MCH 29 pg (28-32) 01/11/19 04:09 MCHC 33 % (32-34) 01/11/19 04:09 RDW 16.5 % (13.2-15.2) H 01/11/19 04:09 Plt Count 131 K/mm3 (140-440) L 01/11/19 04:09 Lymph % (Auto) 15.0 % (13.4-35.0) 01/11/19 04:09 Angelina % (Auto) 11.8 % (0.0-7.3) H 01/11/19 04:09 Eos % (Auto) 2.9 % (0.0-4.3) 01/11/19 04:09 Baso % (Auto) 0.4 % (0.0-1.8) 01/11/19 04:09 Lymph # 0.7 K/mm3 (1.2-5.4) L 01/11/19 04:09 Angelina # 0.5 K/mm3 (0.0-0.8) 01/11/19 04:09 Eos # 0.1 K/mm3 (0.0-0.4) 01/11/19 04:09 Baso # 0.0 K/mm3 (0.0-0.1) 01/11/19 04:09 Seg Neutrophils % 69.9 % (40.0-70.0) 01/11/19 04:09 Seg Neutrophils # 3.0 K/mm3 (1.8-7.7) 01/11/19 04:09 PT 16.5 Sec. (12.2-14.9) H 12/30/18 18:17 INR 1.25 (0.87-1.13) H 12/30/18 18:17 APTT 33.1 Sec. (24.2-36.6) 12/30/18 18:17 D-Dimer 815.50 ng/mlDDU (0-234) H 12/28/18 23:58 Heparin Anti-Xa Level 0.70 U.I./ml (0.3-0.7) 01/02/19 05:09 Heparin Anti-Xa, Unfract Negative (Negative) 01/02/19 05:26 POC ABG pH 7.318 (7.35-7.45) L 01/02/19 11:21 POC ABG pCO2 56.7 (35-45) H 01/02/19 11:21 POC ABG pO2 215 (80-105) H 01/02/19 11:21 POC ABG HCO3 29.1 (22-26 mml/L) 01/02/19 11:21 POC ABG Total CO2 31 (23-27mmol/L) 01/02/19 11:21 POC ABG O2 Sat 100 01/02/19 11:21 POC ABG Base Excess 3 ((-2) - (+3)mmol/L) 01/02/19 11:21 FiO2 60 % 01/02/19 11:21 Sodium 143 mmol/L (137-145) 01/13/19 10:04 Potassium 3.9 mmol/L (3.6-5.0) 01/13/19 10:04 Chloride 89.5 mmol/L (98-107) L 01/13/19 10:04 Carbon Dioxide 46 mmol/L (22-30) H* 01/13/19 10:04 Anion Gap 11 mmol/L 01/13/19 10:04 BUN 15 mg/dL (9-20) 01/13/19 10:04 Creatinine 0.7 mg/dL (0.8-1.5) L 01/13/19 10:04 Estimated GFR > 60 ml/min 01/13/19 10:04 BUN/Creatinine Ratio 21 % 01/13/19 10:04 Glucose 107 mg/dL (75-100) H 01/13/19 10:04 POC Glucose 110 (70-105) H 01/13/19 11:41 Lactic Acid 1.50 mmol/L (0.7-2.0) 12/30/18 11:42 Calcium 9.0 mg/dL (8.4-10.2) 01/13/19 10:04 Phosphorus 2.30 mg/dL (2.5-4.5) L 01/11/19 04:09 Magnesium 2.00 mg/dL (1.7-2.3) 01/11/19 04:09 Iron 34 ug/dL (49-181) L 01/02/19 05:09 TIBC 231 mcg/dL (250-450) L 01/02/19 05:09 Ferritin 163.3 ng/mL (13.0-400.0) 01/02/19 05:09 Total Bilirubin 0.70 mg/dL (0.1-1.2) 01/11/19 04:09 AST 17 units/L (5-40) 01/11/19 04:09 ALT 11 units/L (7-56) 01/11/19 04:09 Alkaline Phosphatase 51 units/L (35-129) 01/11/19 04:09 Lactate Dehydrogenase 405 units/L (91-180) H 12/29/18 15:02 Total Creatine Kinase 837 units/L (55-170) H 12/29/18 12:51 CK-MB (CK-2) 10.5 ng/mL (0.0-4.0) H 12/29/18 12:51 CK-MB (CK-2) Rel Index 1.2 (0-4) 12/29/18 12:51 Troponin T 0.060 ng/mL (0.00-0.029) H D 12/30/18 13:53 C-Reactive Protein 2.80 mg/dL (0.00-1.30) H 12/29/18 16:46 NT-Pro-B Natriuret Pep 4783 pg/mL (0-900) H 01/06/19 17:04 Total Protein 5.4 g/dL (6.3-8.2) L 01/11/19 04:09 Albumin 2.6 g/dL (3.9-5) L 01/11/19 04:09 Albumin/Globulin Ratio 0.9 % 01/11/19 04:09 Triglycerides 113 mg/dL (2-149) 12/29/18 08:34 Cholesterol 120 mg/dL (50-199) 12/29/18 08:34 LDL Cholesterol Direct 82 mg/dL (50-130) 12/29/18 08:34 HDL Cholesterol 34 mg/dL (40-59) L 12/29/18 08:34 Cholesterol/HDL Ratio 3.52 % 12/29/18 08:34 Serotonin Release Assay See scanned result 01/02/19 05:26 Vitamin B12 365.3 pg/mL (211-911) 01/02/19 05:09 Folate 6.01 ng/mL (7.3-26.0) L 01/02/19 05:09 Urine Color Yolande (Yellow) 12/29/18 03:00 Urine Turbidity Cloudy (Clear) 12/29/18 03:00 Urine pH 5.0 (5.0-7.0) 12/29/18 03:00 Ur Specific [place] 1.033 (1.003-1.030) H 12/29/18 03:00 Urine Protein >500 mg/dL (Negative) 12/29/18 03:00 Urine Glucose (UA) 150 mg/dL (Negative) 12/29/18 03:00 Urine Ketones Neg mg/dL (Negative) 12/29/18 03:00 Urine Blood Mod (Negative) 12/29/18 03:00 Urine Nitrite Neg (Negative) 12/29/18 03:00 Urine Bilirubin Neg (Negative) 12/29/18 03:00 Urine Urobilinogen < 2.0 mg/dL (<2.0) 12/29/18 03:00 Ur Leukocyte Esterase Neg (Negative) 12/29/18 03:00 Urine WBC (Auto) 31.0 /HPF (0.0-6.0) H 12/29/18 03:00 Urine RBC (Auto) 27.0 /HPF (0.0-6.0) 12/29/18 03:00 U Epithel Cells (Auto) 4.0 /HPF (0-13.0) 12/29/18 03:00 Urine Bacteria (Auto) 4+ /HPF (Negative) 12/29/18 03:00 Urine Mucus 3+ /HPF 12/29/18 03:00 Urine Opiates Screen Presumptive negative 12/29/18 03:00 Urine Methadone Screen Presumptive negative 12/29/18 03:00 Ur Barbiturates Screen Presumptive negative 12/29/18 03:00 Ur Phencyclidine Scrn Presumptive negative 12/29/18 03:00 Ur Amphetamines Screen Presumptive negative 12/29/18 03:00 U Benzodiazepines Scrn Presumptive negative 12/29/18 03:00 Urine Cocaine Screen Presumptive negative 12/29/18 03:00 U Marijuana (THC) Screen Presumptive negative 12/29/18 03:00 Drugs of Abuse Note Disclamer 12/29/18 03:00 Heparin-induced Plt Ab Negative (Negative) 01/02/19 05:26 UF Heparin High Dose 0 % Release 01/02/19 05:26 THOMAS UFH Low Dose 0.1 0 % Release 01/02/19 05:26 THOMAS UFH Low Dose 0.5 0 % Release 01/02/19 05:26 Urine Legionella Ag Not detected (Not Detected) 12/31/18 05:30 Blood Type O POSITIVE 12/29/18 01:53 Antibody Screen Negative 12/29/18 01:53 Crossmatch See Detail 12/29/18 01:53 Active Medications - Current Medications Current Medications: Generic Name Dose Route Start Last Admin Trade Name Freq PRN Reason Stop Dose Admin Acetaminophen 650 mg 12/29/18 04:49 12/30/18 08:33 Tylenol [place] 650 mg Q4H PRN Administration Fever >101 Albuterol/Ipratropium 1 ampul 01/01/19 14:00 01/13/19 13:00 Duoneb *Not For Prn Use* IH 1 ampul Q6HRT WENDY Administration Apixaban 5 mg 01/12/19 22:00 01/13/19 10:57 Eliquis PO 5 mg Q12HR WENDY Administration Protocol Atorvastatin Calcium 40 mg 01/04/19 22:00 01/12/19 21:46 Lipitor PO 40 mg QHS WENDY Administration Clopidogrel Bisulfate 75 mg 01/12/19 21:00 01/13/19 10:57 Plavix PO 75 mg QDAY WENDY Administration Dextrose 50 ml 12/29/18 04:47 D50w (25gm) Syringe IV PRN PRN Hypoglycemia Famotidine 20 mg 01/04/19 10:00 01/13/19 09:24 Pepcid PO 20 mg BID WENDY Administration Folic Acid 1 mg 01/06/19 12:00 01/13/19 09:46 Folvite PO 1 mg QDAY WENDY Administration Furosemide 20 mg 01/13/19 13:40 Lasix IV 1000 WENDY Gabapentin 300 mg 01/10/19 22:00 01/12/19 21:45 Neurontin PO 300 mg HS WENDY Administration Haloperidol Lactate 5 mg 01/07/19 11:33 01/12/19 02:21 Haldol IM 5 mg Q6H PRN Administration Agitation Hydralazine HCl 10 mg 01/01/19 13:23 Apresoline IV Q4HR PRN SBP >/=170 Insulin Human Regular 0 units 01/04/19 11:30 01/13/19 08:12 Humulin R SUB-Q Not Given ACHS [facility] Protocol Levetiracetam 500 mg 01/04/19 10:00 01/13/19 09:24 Keppra PO 500 mg BID WENDY Administration Losartan Potassium 50 mg 01/04/19 11:00 01/13/19 09:48 Cozaar PO Not Given DAILY [facility] Metformin HCl 500 mg 01/10/19 17:00 01/13/19 08:40 Glucophage Xr PO 500 mg BIDDIAB WENDY Administration Metoprolol Tartrate 12.5 mg 01/03/19 11:00 01/13/19 09:49 Lopressor PO Not Given BID [facility] Ondansetron HCl 4 mg 12/29/18 04:49 Zofran IV Q8H PRN Nausea And Vomiting Quetiapine Fumarate 50 mg 01/08/19 22:00 01/12/19 21:46 Seroquel PO 50 mg QHS WENDY Administration Ropinirole HCl 1 mg 01/11/19 10:00 01/13/19 09:24 Requip PO 1 mg DAILY WENDY Administration Sertraline HCl 100 mg 01/11/19 10:00 01/13/19 09:25 Zoloft PO 100 mg QDAY WENDY Administration Nutrition/Malnutrition Assess - Dietary Evaluation Nutrition/Malnutrition Findings: Nutrition Notes Start: 12/31/18 14:59 Freq: Status: Active Protocol: Document 01/12/19 11:17 LIZ (Rec: 01/12/19 11:22 LIZ [id number]) Nutrition Notes Initial or Follow up Reassessment Current Diagnosis Coronary Artery Disease, Diabetes,Hypertension, Respiratory Failure Other Pertinent Diagnosis (R) lung effusion, (R) pneu Current Diet Cardiac/consistent carbohydrate + Glucerna BID Labs/Tests Reviewed Pertinent Medications Reviewed Height 5 ft 7 in Weight 126.5 kg [place] Body Weight (kg) 67.27 BMI 43.7 Subjective/Other Information Pt consuming 19% of meals. He is confused and agitated at times. Burn Absent Trauma Absent #1 Nutrition Diagnosis Inadequate oral intake Diagnosis Progress(for reassessment Continues documentation) Is patient on ventilator? No Is Patient Ambulatory and/or Out of Bed No REE-([facility]-confined to bed) 2356.032 Kcal/Kg value to use for calculation 14 Approximate Energy Requirements Using 1771 kcal/Kg Additional Notes Pro needs 1-1.2g/kg adjBW: 97- 116g/day Fluid needs 1ml/kcal Nutrition Intervention Change Diet Order: Continue current diet order Add Supplement/Snack (indicate name/kcal Glucerna [place] BID /protein ) Provides kCal: 440 Provides Protein (gm) 20 Goal #1 PO intake of meals plus ONS to meet at least 75% of energy and pro needs Follow-Up By: 01/15/19 Additional Comments F/U: intakes (meals/ONS), wt
[2019-01-13] MEDS ORDERED: TYLENOL PO PRN (18:56)
[2019-01-13] MEDS: NEURONTIN PO SCH (21:34)
[2019-01-14] MEDS: DUONEB *Not for PRN Use IH SCH ×5 (06:14→19:09)
--- NOTE | 2019-01-14 07:14 | Hem/Onc Progress Note ---
Assessment and Plan 1. Deep venous thrombosis, left common femoral and right peroneal; bilateral leg swelling present. The patient was placed on heparin drip. His platelets had slightly fallen down. 2. The patient's platelet count at admission was 99 and then 196, 125, and 114. It is possible that the patient's baseline platelets are also low. 3. History of diabetes. 4. History of coronary artery disease. 5. Radiology showed right pleural effusion at one time. 6. History of seizure disorder as per the notes. 7. Myocardial infarction. 8. Status post coronary artery bypass graft. 9. Electrolyte imbalance. 10. History of cerebrovascular accident. 11. History of pneumonia. 12. h/o rt chest tube - h/o pl effusion - pt pulled out. 5/6 plt >100 US abdo limited - does not mention liver and spleen size. 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 uses CPAP at home low folate - on replacement restarted eliquis no thoracentesis as not much pl effusion pt says was walking at home prior to all this - encouraged therapy/ambulation labs for tomorrow - Patient Problems (1) DVT (deep venous thrombosis) Current Visit: Yes Status: Acute (2) Thrombocytopenia Current Visit: Yes Status: Acute Subjective Date of service: 01/14/19 Principal diagnosis: dvt Interval history: on o2 - feeling better Objective - Constitutional Vitals: Last Vital Signs Temp 98.3 F 01/14/19 02:34 Pulse 72 01/14/19 07:09 Resp 20 01/14/19 07:09 BP 136/68 01/14/19 02:34 Pulse Ox 97 01/14/19 07:09 Pain Intensity (0-10): denies any pain General appearance: no acute distress Performance status: 3-limited selfcare - EENT Eyes: EOM intact ENT: hearing intact Lymph node exam: negative cervical - Neck Neck: normal ROM - Respiratory Respiratory effort: Positive: normal Respiratory: bilateral: CTA - Cardiovascular Heart Sounds: Present: S1 & S2 Extremities: normal temperature - Gastrointestinal General gastrointestinal: Present: soft, non-tender Rectal Exam: deferred - Genitourinary Male genitourinary: Present: deferred - Integumentary Integumentary: warm - Musculoskeletal Musculoskeletal: generalized weakness - Neurologic Neurologic: moves all extremities - Labs Lab Results: Laboratory Results - last 24 hr 01/13/19 01/13/19 01/13/19 07:30 10:04 11:41 Sodium 143 Potassium 3.9 Chloride 89.5 L Carbon Dioxide 46 H* Anion Gap 11 BUN 15 Creatinine 0.7 L Estimated GFR > 60 BUN/Creatinine Ratio 21 Glucose 107 H POC Glucose 108 H 110 H Calcium 9.0 01/13/19 01/13/19 16:31 21:37 Sodium Potassium Chloride Carbon Dioxide Anion Gap BUN Creatinine Estimated GFR BUN/Creatinine Ratio Glucose POC Glucose 129 H 123 H Calcium Medications & Allergies - Medications Allergies/Adverse Reactions: Allergies Penicillins Allergy (Verified 12/29/18 04:18) Unknown Home Medications: Home Medications Medication Instructions Recorded Confirmed Last Taken Type Aspirin 81 mg PO DAILY 12/30/18 12/30/18 12/30/18 History AtorvaSTATin 40 mg PO HS 12/30/18 12/30/18 12/28/18 History Clopidogrel Bisulfate [Clopidogrel] 75 mg PO DAILY 12/30/18 12/30/18 12/28/18 History Furosemide 40 mg PO DAILY 12/30/18 12/30/18 12/28/18 History Gabapentin [Neurontin] 300 mg PO HS 12/30/18 12/30/18 12/28/18 History Losartan [Cozaar] 50 mg .ROUTE DAILY 12/30/18 12/30/18 12/28/18 History Metformin ER (Nf) 500 gm .ROUTE BID 12/30/18 12/30/18 12/28/18 History Metoprolol 50 mg PO DAILY 12/30/18 12/30/18 12/28/18 History Potassium 10 meq PO DAILY 12/30/18 12/30/18 12/28/18 History Ropinirole HCl 1 mg PO DAILY 12/30/18 12/30/18 12/28/18 History Sertraline 25 mg PO DAILY 12/30/18 12/30/18 12/28/18 History Sertraline 75 mg PO DAILY 12/30/18 12/30/18 12/28/18 History Active Medications: Generic Name Dose Route Start Last Admin Trade Name Freq PRN Reason Stop Dose Admin Acetaminophen 650 mg 12/29/18 04:49 12/30/18 08:33 Tylenol [place] 650 mg Q4H PRN Administration Fever >101 Acetaminophen 650 mg 01/13/19 18:56 01/13/19 19:01 Tylenol PO 650 mg Q6H PRN Administration Pain, Mild (1-3) Albuterol/Ipratropium 1 ampul 01/01/19 14:00 01/14/19 07:09 Duoneb *Not For Prn Use* IH 1 ampul Q6HRT WENDY Administration Apixaban 5 mg 01/12/19 22:00 01/13/19 21:34 Eliquis PO 5 mg Q12HR WENDY Administration Protocol Atorvastatin Calcium 40 mg 01/04/19 22:00 01/13/19 21:34 Lipitor PO 40 mg QHS WENDY Administration Clopidogrel Bisulfate 75 mg 01/12/19 21:00 01/13/19 10:57 Plavix PO 75 mg QDAY WENDY Administration Dextrose 50 ml 12/29/18 04:47 D50w (25gm) Syringe IV PRN PRN Hypoglycemia Famotidine 20 mg 01/04/19 10:00 01/13/19 21:34 Pepcid PO 20 mg BID WENDY Administration Folic Acid 1 mg 01/06/19 12:00 01/13/19 09:46 Folvite PO 1 mg QDAY WENDY Administration Furosemide 20 mg 01/13/19 13:40 Lasix IV 1000 WENDY Gabapentin 300 mg 01/10/19 22:00 01/13/19 21:34 Neurontin PO 300 mg HS WENDY Administration Haloperidol Lactate 5 mg 01/07/19 11:33 01/12/19 02:21 Haldol IM 5 mg Q6H PRN Administration Agitation Hydralazine HCl 10 mg 01/01/19 13:23 Apresoline IV Q4HR PRN SBP >/=170 Insulin Human Regular 0 units 01/04/19 11:30 01/13/19 21:35 Humulin R SUB-Q Not Given ACHS [facility] Protocol Levetiracetam 500 mg 01/04/19 10:00 01/13/19 21:34 Keppra PO 500 mg BID WENDY Administration Losartan Potassium 50 mg 01/04/19 11:00 01/13/19 09:48 Cozaar PO Not Given DAILY WENDY Metformin HCl 500 mg 01/10/19 17:00 01/13/19 17:28 Glucophage Xr PO 500 mg BIDDIAB WENDY Administration Metoprolol Tartrate 12.5 mg 01/03/19 11:00 01/13/19 21:35 Lopressor PO 12.5 mg BID WENDY Administration Ondansetron HCl 4 mg 12/29/18 04:49 Zofran IV Q8H PRN Nausea And Vomiting Quetiapine Fumarate 50 mg 01/08/19 22:00 01/13/19 21:34 Seroquel PO 50 mg QHS WENDY Administration Ropinirole HCl 1 mg 01/11/19 10:00 01/13/19 09:24 Requip PO 1 mg DAILY WENDY Administration Sertraline HCl 100 mg 01/11/19 10:00 01/13/19 09:25 Zoloft PO 100 mg QDAY WENDY Administration
[2019-01-14] MEDS: HumuLIN R SUB-Q SCH ×4 (08:28→21:48)
[2019-01-14] MEDS: GLUCOPHAGE XR PO SCH ×2 (08:59→16:29)
--- NOTE | 2019-01-14 09:08 | XRay Report ---
Chest 2 views: Compared to 01/10/19. History: Shortness of breath. Findings a cardiomegaly. Trachea is midline. Suspected bilateral pleural effusion. No significant interval change. Impression: No significant interval change.
[2019-01-14] MEDS ORDERED: ELIQUIS PO SCH (10:00)
[2019-01-14] MEDS: KEPPRA PO SCH ×2 (10:16→21:47)
[2019-01-14] MEDS: PLAVIX PO SCH (10:16)
[2019-01-14] MEDS: ELIQUIS PO SCH ×2 (10:17→21:47)
[2019-01-14] MEDS: FOLVITE PO SCH (10:17)
[2019-01-14] MEDS: ZOLOFT PO SCH (10:17)
[2019-01-14] MEDS: REQUIP PO SCH (10:17)
[2019-01-14] MEDS: PEPCID PO SCH ×2 (10:17→21:47)
[2019-01-14] MEDS: LOPRESSOR PO SCH ×2 (10:31→21:47)
[2019-01-14] MEDS: LASIX IV SCH (10:31)
[2019-01-14] MEDS: COZAAR PO SCH (10:31)
--- NOTE | 2019-01-14 13:57 | Progress Note ---
Assessment and Plan Patient awake. Following commands. Well oriented. Resting on 2 litres O2 saturation 91%.Patient goes on BIPAP during night time and PRN for shortness of breath during day time. Chest xray still reporting bilateral pleural effusions. Obtaining ultrasound of chest. Also obtaining ABGs on room air. Patient is at bed side. Talk to her and explained patients respiratory status. - Patient Problems (1) Acute respiratory failure Current Visit: Yes Status: Acute Plan to address problem: BIPAP 15/8, rate 20, FIO2 35%. O2 2 litres when he is not on BIPAP. Albuterol/atrovent aerosol treatments q 6 hours. Continue famotidine. Patient is on Apixaban. (2) Pleural effusion, right Current Visit: Yes Status: Acute Plan to address problem: Obtaining ultrasound of chest. (3) CAD (coronary artery disease) Current Visit: Yes Status: Chronic Plan to address problem: Management as per cardiology. (4) Diabetes mellitus Current Visit: Yes Status: Chronic Plan to address problem: Management as per primary care. (5) HTN (hypertension) Current Visit: Yes Status: Chronic Plan to address problem: Management as per primary care. (6) History of CVA (cerebrovascular accident) Current Visit: Yes Status: Chronic Plan to address problem: Management as per primary care. Subjective Date of service: 01/14/19 Principal diagnosis: dvt Interval history: Patient awake. Following commands. Well oriented. Resting on 2 litres O2 saturation 91%.Patient goes on BIPAP during night time and PRN for shortness of breath during day time. Chest xray still reporting bilateral pleural effusions. Obtaining ultrasound of chest. Also obtaining ABGs on room air. Patient is at bed side. Talk to her and explained patients respiratory status. Objective Vital Signs - 12hr 01/14/19 01/14/19 01/14/19 02:34 07:09 07:20 Temperature 98.3 F Pulse Rate 77 Pulse Rate [ 72 75 Anterior Bilateral Throughout] Respiratory 20 Rate Respiratory 20 20 Rate [Anterior Bilateral Throughout] Blood Pressure 136/68 O2 Sat by Pulse 94 97 Oximetry 01/14/19 01/14/19 01/14/19 07:21 08:03 10:00 Temperature 97.7 F Pulse Rate 81 Pulse Rate [ Anterior Bilateral Throughout] Respiratory 20 22 Rate Respiratory Rate [Anterior Bilateral Throughout] Blood Pressure 119/72 O2 Sat by Pulse 95 92 Oximetry 01/14/19 01/14/19 01/14/19 10:25 10:31 11:11 Temperature Pulse Rate 64 60 Pulse Rate [ 82 Anterior Bilateral Throughout] Respiratory Rate Respiratory 20 Rate [Anterior Bilateral Throughout] Blood Pressure 131/83 O2 Sat by Pulse 91 Oximetry 01/14/19 11:22 Temperature Pulse Rate Pulse Rate [ 76 Anterior Bilateral Throughout] Respiratory Rate Respiratory 20 Rate [Anterior Bilateral Throughout] Blood Pressure O2 Sat by Pulse Oximetry Constitutional: no acute distress, alert Eyes: non-icteric ENT: oropharynx moist Neck: supple, no lymphadenopathy, no JVD, other (large neck circumference) Effort: mildly labored Ascultation: Bilateral: diminished breath sounds, rhonchi (bases), other (Right chest tube) Percussion: Bilateral: not dull Cardiovascular: regular rate and rhythm, other (No R/M) Gastrointestinal: normoactive bowel sounds, soft, non-tender, non-distended Integumentary: normal Extremities: no cyanosis, pink and warm, pulses normal, no ischemia or petechiae, edema (1+) Neurologic: normal mental status, non-focal exam (grossly), pupils equal and round, CN II-XII normal, motor strength normal and Psychiatric: mood appropriate, affect normal CBC and BMP: 01/11/19 04:09 01/13/19 10:04 ABG, PT/INR, D-dimer: ABG POC ABG pH 7.318 (7.35-7.45) L 01/02/19 11:21 POC ABG pCO2 56.7 (35-45) H 01/02/19 11:21 POC ABG pO2 215 (80-105) H 01/02/19 11:21 POC ABG HCO3 29.1 (22-26 mml/L) 01/02/19 11:21 POC ABG Total CO2 31 (23-27mmol/L) 01/02/19 11:21 POC ABG O2 Sat 100 01/02/19 11:21 PT/INR, D-dimer PT 16.5 Sec. (12.2-14.9) H 12/30/18 18:17 INR 1.25 (0.87-1.13) H 12/30/18 18:17 D-Dimer 815.50 ng/mlDDU (0-234) H 12/28/18 23:58 Abnormal lab findings: Abnormal Labs 12/28/18 12/28/18 12/28/18 23:58 23:58 23:58 WBC RBC 2.24 L Hgb 6.7 L Hct 20.9 L RDW 16.4 H Plt Count 99 L Lymph % (Auto) 10.7 L [place] % (Auto) 7.9 H Lymph # 0.6 L [place] # Seg Neutrophils % 80.7 H PT INR D-Dimer 815.50 H Heparin Anti-Xa Level POC ABG pH POC ABG pCO2 POC ABG pO2 Sodium 148 H Potassium 2.3 L* Chloride 128.4 H Carbon Dioxide 12 L BUN Creatinine 0.4 L Glucose POC Glucose Lactic Acid Calcium 5.0 L* Phosphorus Iron TIBC Total Bilirubin AST ALT < 5 L Lactate Dehydrogenase Total Creatine Kinase 44 L CK-MB (CK-2) CK-MB (CK-2) Rel Index 4.3 H Troponin T C-Reactive Protein NT-Pro-B Natriuret Pep Total Protein 2.3 L Albumin 1.1 L HDL Cholesterol Folate Ur Specific [place] Urine WBC (Auto) Crossmatch 12/28/18 12/29/18 12/29/18 23:58 00:27 01:53 WBC RBC Hgb Hct RDW Plt Count Lymph % (Auto) [place] % (Auto) Lymph # [place] # Seg Neutrophils % PT INR D-Dimer Heparin Anti-Xa Level POC ABG pH 7.169 L POC ABG pCO2 POC ABG pO2 Sodium Potassium Chloride Carbon Dioxide BUN Creatinine Glucose POC Glucose Lactic Acid Calcium Phosphorus Iron TIBC Total Bilirubin AST ALT Lactate Dehydrogenase Total Creatine Kinase CK-MB (CK-2) CK-MB (CK-2) Rel Index Troponin T C-Reactive Protein NT-Pro-B Natriuret Pep 1209 H Total Protein Albumin HDL Cholesterol Folate Ur Specific [place] Urine WBC (Auto) Crossmatch See Detail 12/29/18 12/29/18 12/29/18 03:00 05:02 08:34 WBC RBC Hgb Hct RDW Plt Count Lymph % (Auto) [place] % (Auto) Lymph # [place] # Seg Neutrophils % PT INR D-Dimer Heparin Anti-Xa Level POC ABG pH 7.225 L POC ABG pCO2 57.9 H POC ABG pO2 Sodium Potassium Chloride Carbon Dioxide BUN Creatinine Glucose POC Glucose Lactic Acid Calcium Phosphorus Iron TIBC Total Bilirubin AST ALT Lactate Dehydrogenase Total Creatine Kinase 344 H CK-MB (CK-2) 7.9 H CK-MB (CK-2) Rel Index Troponin T 0.103 H* D C-Reactive Protein NT-Pro-B Natriuret Pep Total Protein Albumin HDL Cholesterol 34 L Folate Ur Specific [place] 1.033 H Urine WBC (Auto) 31.0 H Crossmatch 12/29/18 12/29/18 12/29/18 08:34 08:53 12:51 WBC RBC Hgb Hct RDW Plt Count Lymph % (Auto) [place] % (Auto) Lymph # [place] # Seg Neutrophils % PT INR D-Dimer Heparin Anti-Xa Level POC ABG pH POC ABG pCO2 POC ABG pO2 Sodium Potassium 5.7 H D Chloride Carbon Dioxide BUN 21 H Creatinine Glucose 124 H POC Glucose 119 H Lactic Acid Calcium Phosphorus Iron TIBC Total Bilirubin AST ALT Lactate Dehydrogenase Total Creatine Kinase 837 H CK-MB (CK-2) 10.5 H CK-MB (CK-2) Rel Index Troponin T 0.084 H C-Reactive Protein NT-Pro-B Natriuret Pep Total Protein Albumin HDL Cholesterol Folate Ur Specific [place] Urine WBC (Auto) Crossmatch 12/29/18 12/29/18 12/29/18 12:51 12:51 15:02 WBC RBC Hgb Hct RDW 16.0 H Plt Count Lymph % (Auto) [place] % (Auto) 13.3 H Lymph # [place] # 1.4 H Seg Neutrophils % PT INR D-Dimer Heparin Anti-Xa Level POC ABG pH POC ABG pCO2 POC ABG pO2 Sodium Potassium 5.4 H Chloride Carbon Dioxide 19 L 17 L BUN 21 H 21 H Creatinine Glucose 116 H 115 H POC Glucose Lactic Acid Calcium Phosphorus Iron TIBC Total Bilirubin 1.50 H AST 43 H ALT Lactate Dehydrogenase 405 H Total Creatine Kinase CK-MB (CK-2) CK-MB (CK-2) Rel Index Troponin T C-Reactive Protein NT-Pro-B Natriuret Pep Total Protein 6.2 L D Albumin 3.1 L HDL Cholesterol Folate Ur Specific [place] Urine WBC (Auto) Crossmatch 12/29/18 12/29/18 12/29/18 15:03 16:46 16:46 WBC RBC Hgb Hct RDW Plt Count Lymph % (Auto) [place] % (Auto) Lymph # [place] # Seg Neutrophils % PT INR D-Dimer Heparin Anti-Xa Level POC ABG pH POC ABG pCO2 POC ABG pO2 Sodium Potassium Chloride Carbon Dioxide BUN Creatinine Glucose POC Glucose 121 H Lactic Acid 2.70 H* Calcium Phosphorus Iron TIBC Total Bilirubin AST ALT Lactate Dehydrogenase Total Creatine Kinase CK-MB (CK-2) CK-MB (CK-2) Rel Index Troponin T C-Reactive Protein 2.80 H NT-Pro-B Natriuret Pep Total Protein Albumin HDL Cholesterol Folate Ur Specific [place] Urine WBC (Auto) Crossmatch 12/29/18 12/29/18 12/29/18 16:50 17:37 19:37 WBC RBC Hgb Hct RDW Plt Count Lymph % (Auto) [place] % (Auto) Lymph # [place] # Seg Neutrophils % PT INR D-Dimer Heparin Anti-Xa Level POC ABG pH POC ABG pCO2 POC ABG pO2 248 H Sodium Potassium Chloride Carbon Dioxide 21 L BUN 21 H Creatinine Glucose 123 H POC Glucose 113 H Lactic Acid Calcium Phosphorus Iron TIBC Total Bilirubin AST ALT Lactate Dehydrogenase Total Creatine Kinase CK-MB (CK-2) CK-MB (CK-2) Rel Index Troponin T C-Reactive Protein NT-Pro-B Natriuret Pep Total Protein Albumin HDL Cholesterol Folate Ur Specific [place] Urine WBC (Auto) Crossmatch 12/29/18 12/29/18 12/30/18 20:10 21:36 04:43 WBC RBC Hgb Hct RDW Plt Count Lymph % (Auto) [place] % (Auto) Lymph # [place] # Seg Neutrophils % PT INR D-Dimer Heparin Anti-Xa Level POC ABG pH 7.327 L POC ABG pCO2 POC ABG pO2 79 L Sodium Potassium Chloride Carbon Dioxide BUN Creatinine Glucose POC Glucose Lactic Acid 2.70 H* 2.80 H* Calcium Phosphorus Iron TIBC Total Bilirubin AST ALT Lactate Dehydrogenase Total Creatine Kinase CK-MB (CK-2) CK-MB (CK-2) Rel Index Troponin T C-Reactive Protein NT-Pro-B Natriuret Pep Total Protein Albumin HDL Cholesterol Folate Ur Specific [place] Urine WBC (Auto) Crossmatch 12/30/18 12/30/18 12/30/18 11:42 11:42 13:43 WBC RBC Hgb Hct RDW 16.4 H Plt Count 125 L Lymph % (Auto) [place] % (Auto) Lymph # [place] # Seg Neutrophils % PT INR D-Dimer Heparin Anti-Xa Level POC ABG pH 7.225 L POC ABG pCO2 54.7 H POC ABG pO2 Sodium Potassium Chloride 108.8 H Carbon Dioxide BUN Creatinine Glucose 105 H POC Glucose Lactic Acid Calcium 8.2 L Phosphorus Iron TIBC Total Bilirubin AST ALT Lactate Dehydrogenase Total Creatine Kinase CK-MB (CK-2) CK-MB (CK-2) Rel Index Troponin T C-Reactive Protein NT-Pro-B Natriuret Pep Total Protein Albumin HDL Cholesterol Folate Ur Specific [place] Urine WBC (Auto) Crossmatch 12/30/18 12/30/18 12/30/18 13:53 18:17 18:17 WBC RBC Hgb Hct RDW Plt Count 114 L Lymph % (Auto) [place] % (Auto) Lymph # [place] # Seg Neutrophils % PT 16.5 H INR 1.25 H D-Dimer Heparin Anti-Xa Level POC ABG pH POC ABG pCO2 POC ABG pO2 Sodium Potassium Chloride Carbon Dioxide BUN Creatinine Glucose POC Glucose Lactic Acid Calcium Phosphorus Iron TIBC Total Bilirubin AST ALT Lactate Dehydrogenase Total Creatine Kinase CK-MB (CK-2) CK-MB (CK-2) Rel Index Troponin T 0.060 H D C-Reactive Protein NT-Pro-B Natriuret Pep Total Protein Albumin HDL Cholesterol Folate Ur Specific [place] Urine WBC (Auto) Crossmatch 12/31/18 12/31/18 12/31/18 00:31 04:39 05:30 WBC RBC Hgb 10.9 L Hct 32.4 L RDW 16.1 H Plt Count 97 L Lymph % (Auto) [place] % (Auto) Lymph # [place] # Seg Neutrophils % PT INR D-Dimer Heparin Anti-Xa Level 0.12 L POC ABG pH 7.337 L POC ABG pCO2 POC ABG pO2 Sodium Potassium Chloride Carbon Dioxide BUN Creatinine Glucose POC Glucose Lactic Acid Calcium Phosphorus Iron TIBC Total Bilirubin AST ALT Lactate Dehydrogenase Total Creatine Kinase CK-MB (CK-2) CK-MB (CK-2) Rel Index Troponin T C-Reactive Protein NT-Pro-B Natriuret Pep Total Protein Albumin HDL Cholesterol Folate Ur Specific [place] Urine WBC (Auto) Crossmatch 12/31/18 12/31/18 12/31/18 05:30 16:27 18:40 WBC RBC Hgb Hct RDW Plt Count Lymph % (Auto) [place] % (Auto) Lymph # [place] # Seg Neutrophils % PT INR D-Dimer Heparin Anti-Xa Level POC ABG pH 7.246 L POC ABG pCO2 52.6 H POC ABG pO2 Sodium Potassium Chloride 110.5 H Carbon Dioxide BUN Creatinine Glucose 107 H POC Glucose 109 H Lactic Acid Calcium 8.2 L Phosphorus Iron TIBC Total Bilirubin 1.30 H AST ALT Lactate Dehydrogenase Total Creatine Kinase CK-MB (CK-2) CK-MB (CK-2) Rel Index Troponin T C-Reactive Protein NT-Pro-B Natriuret Pep Total Protein 5.1 L Albumin 2.3 L HDL Cholesterol Folate Ur Specific [place] Urine WBC (Auto) Crossmatch 12/31/18 01/01/19 01/01/19 21:37 03:05 04:25 WBC RBC Hgb Hct RDW Plt Count Lymph % (Auto) [place] % (Auto) Lymph # [place] # Seg Neutrophils % PT INR D-Dimer Heparin Anti-Xa Level POC ABG pH 7.278 L POC ABG pCO2 50.6 H POC ABG pO2 111 H Sodium Potassium Chloride Carbon Dioxide BUN Creatinine Glucose POC Glucose 108 H 147 H Lactic Acid Calcium Phosphorus Iron TIBC Total Bilirubin AST ALT Lactate Dehydrogenase Total Creatine Kinase CK-MB (CK-2) CK-MB (CK-2) Rel Index Troponin T C-Reactive Protein NT-Pro-B Natriuret Pep Total Protein Albumin HDL Cholesterol Folate Ur Specific [place] Urine WBC (Auto) Crossmatch 01/01/19 01/01/19 01/01/19 04:42 04:42 06:32 WBC 3.9 L RBC 3.54 L Hgb 10.7 L Hct 31.6 L RDW 16.3 H Plt Count 83 L Lymph % (Auto) [place] % (Auto) Lymph # [place] # Seg Neutrophils % PT INR D-Dimer Heparin Anti-Xa Level POC ABG pH POC ABG pCO2 POC ABG pO2 Sodium Potassium Chloride 109.8 H Carbon Dioxide BUN Creatinine Glucose 134 H POC Glucose 143 H Lactic Acid Calcium 8.1 L Phosphorus Iron TIBC Total Bilirubin AST ALT Lactate Dehydrogenase Total Creatine Kinase CK-MB (CK-2) CK-MB (CK-2) Rel Index Troponin T C-Reactive Protein NT-Pro-B Natriuret Pep Total Protein 4.9 L Albumin 2.3 L HDL Cholesterol Folate Ur Specific [place] Urine WBC (Auto) Crossmatch 01/01/19 01/01/19 01/01/19 07:33 11:37 13:55 WBC RBC Hgb Hct RDW Plt Count Lymph % (Auto) [place] % (Auto) Lymph # [place] # Seg Neutrophils % PT INR D-Dimer Heparin Anti-Xa Level POC ABG pH 7.242 L POC ABG pCO2 55.3 H POC ABG pO2 Sodium Potassium Chloride Carbon Dioxide BUN Creatinine Glucose POC Glucose 137 H 133 H Lactic Acid Calcium Phosphorus Iron TIBC Total Bilirubin AST ALT Lactate Dehydrogenase Total Creatine Kinase CK-MB (CK-2) CK-MB (CK-2) Rel Index Troponin T C-Reactive Protein NT-Pro-B Natriuret Pep Total Protein Albumin HDL Cholesterol Folate Ur Specific [place] Urine WBC (Auto) Crossmatch 01/01/19 01/01/19 01/01/19 15:44 16:51 21:35 WBC RBC Hgb Hct RDW Plt Count Lymph % (Auto) [place] % (Auto) Lymph # [place] # Seg Neutrophils % PT INR D-Dimer Heparin Anti-Xa Level POC ABG pH 7.298 L POC ABG pCO2 50.6 H POC ABG pO2 Sodium Potassium Chloride Carbon Dioxide BUN Creatinine Glucose POC Glucose 139 H 106 H Lactic Acid Calcium Phosphorus Iron TIBC Total Bilirubin AST ALT Lactate Dehydrogenase Total Creatine Kinase CK-MB (CK-2) CK-MB (CK-2) Rel Index Troponin T C-Reactive Protein NT-Pro-B Natriuret Pep Total Protein Albumin HDL Cholesterol Folate Ur Specific [place] Urine WBC (Auto) Crossmatch 01/02/19 01/02/19 01/02/19 03:13 04:40 05:09 WBC 3.9 L RBC Hgb Hct RDW 16.1 H Plt Count 94 L Lymph % (Auto) 7.5 L [place] % (Auto) 14.2 H Lymph # 0.3 L [place] # Seg Neutrophils % 76.5 H PT INR D-Dimer Heparin Anti-Xa Level POC ABG pH 7.206 L POC ABG pCO2 65.8 H POC ABG pO2 62 L Sodium Potassium Chloride Carbon Dioxide BUN Creatinine Glucose POC Glucose 124 H Lactic Acid Calcium Phosphorus Iron TIBC Total Bilirubin AST ALT Lactate Dehydrogenase Total Creatine Kinase CK-MB (CK-2) CK-MB (CK-2) Rel Index Troponin T C-Reactive Protein NT-Pro-B Natriuret Pep Total Protein Albumin HDL Cholesterol Folate Ur Specific [place] Urine WBC (Auto) Crossmatch 01/02/19 01/02/19 01/02/19 05:09 05:09 05:32 WBC RBC Hgb Hct RDW Plt Count Lymph % (Auto) [place] % (Auto) Lymph # [place] # Seg Neutrophils % PT INR D-Dimer Heparin Anti-Xa Level POC ABG pH POC ABG pCO2 POC ABG pO2 Sodium Potassium Chloride 107.4 H Carbon Dioxide BUN Creatinine Glucose 133 H POC Glucose 130 H Lactic Acid Calcium 8.3 L Phosphorus Iron 34 L TIBC 231 L Total Bilirubin AST ALT Lactate Dehydrogenase Total Creatine Kinase CK-MB (CK-2) CK-MB (CK-2) Rel Index Troponin T C-Reactive Protein NT-Pro-B Natriuret Pep Total Protein Albumin HDL Cholesterol Folate 6.01 L Ur Specific [place] Urine WBC (Auto) Crossmatch 01/02/19 01/02/19 01/02/19 10:25 11:21 11:42 WBC RBC Hgb Hct RDW Plt Count Lymph % (Auto) [place] % (Auto) Lymph # [place] # Seg Neutrophils % PT INR D-Dimer Heparin Anti-Xa Level POC ABG pH 7.318 L POC ABG pCO2 56.7 H POC ABG pO2 215 H Sodium Potassium Chloride Carbon Dioxide BUN Creatinine Glucose POC Glucose 108 H 152 H Lactic Acid Calcium Phosphorus Iron TIBC Total Bilirubin AST ALT Lactate Dehydrogenase Total Creatine Kinase CK-MB (CK-2) CK-MB (CK-2) Rel Index Troponin T C-Reactive Protein NT-Pro-B Natriuret Pep Total Protein Albumin HDL Cholesterol Folate Ur Specific [place] Urine WBC (Auto) Crossmatch 01/02/19 01/03/19 01/03/19 17:37 04:28 10:57 WBC RBC Hgb 11.6 L Hct RDW Plt Count 105 L Lymph % (Auto) [place] % (Auto) Lymph # [place] # Seg Neutrophils % PT INR D-Dimer Heparin Anti-Xa Level POC ABG pH POC ABG pCO2 POC ABG pO2 Sodium Potassium Chloride Carbon Dioxide BUN Creatinine Glucose 111 H POC Glucose 107 H Lactic Acid Calcium Phosphorus Iron TIBC Total Bilirubin AST ALT Lactate Dehydrogenase Total Creatine Kinase CK-MB (CK-2) CK-MB (CK-2) Rel Index Troponin T C-Reactive Protein NT-Pro-B Natriuret Pep Total Protein Albumin HDL Cholesterol Folate Ur Specific [place] Urine WBC (Auto) Crossmatch 01/03/19 01/03/19 01/03/19 15:16 17:33 20:35 WBC RBC Hgb Hct RDW Plt Count Lymph % (Auto) [place] % (Auto) Lymph # [place] # Seg Neutrophils % PT INR D-Dimer Heparin Anti-Xa Level POC ABG pH POC ABG pCO2 POC ABG pO2 Sodium Potassium Chloride Carbon Dioxide BUN Creatinine Glucose POC Glucose 135 H 166 H 114 H Lactic Acid Calcium Phosphorus Iron TIBC Total Bilirubin AST ALT Lactate Dehydrogenase Total Creatine Kinase CK-MB (CK-2) CK-MB (CK-2) Rel Index Troponin T C-Reactive Protein NT-Pro-B Natriuret Pep Total Protein Albumin HDL Cholesterol Folate Ur Specific [place] Urine WBC (Auto) Crossmatch 01/04/19 01/04/19 01/04/19 01:32 04:47 04:47 WBC 4.2 L RBC Hgb 11.5 L Hct 34.9 L RDW 15.8 H Plt Count 119 L Lymph % (Auto) [place] % (Auto) Lymph # [place] # Seg Neutrophils % PT INR D-Dimer Heparin Anti-Xa Level POC ABG pH POC ABG pCO2 POC ABG pO2 Sodium Potassium 3.3 L Chloride Carbon Dioxide BUN Creatinine Glucose 110 H POC Glucose 114 H Lactic Acid Calcium 8.3 L Phosphorus Iron TIBC Total Bilirubin AST ALT Lactate Dehydrogenase Total Creatine Kinase CK-MB (CK-2) CK-MB (CK-2) Rel Index Troponin T C-Reactive Protein NT-Pro-B Natriuret Pep Total Protein Albumin HDL Cholesterol Folate Ur Specific [place] Urine WBC (Auto) Crossmatch 01/04/19 01/04/19 01/04/19 08:51 11:41 16:25 WBC RBC Hgb Hct RDW Plt Count Lymph % (Auto) [place] % (Auto) Lymph # [place] # Seg Neutrophils % PT INR D-Dimer Heparin Anti-Xa Level POC ABG pH POC ABG pCO2 POC ABG pO2 Sodium Potassium Chloride Carbon Dioxide BUN Creatinine Glucose POC Glucose 122 H 146 H 142 H Lactic Acid Calcium Phosphorus Iron TIBC Total Bilirubin AST ALT Lactate Dehydrogenase Total Creatine Kinase CK-MB (CK-2) CK-MB (CK-2) Rel Index Troponin T C-Reactive Protein NT-Pro-B Natriuret Pep Total Protein Albumin HDL Cholesterol Folate Ur Specific [place] Urine WBC (Auto) Crossmatch 01/04/19 01/05/19 01/05/19 21:16 04:41 04:41 WBC RBC Hgb Hct RDW 15.9 H Plt Count 126 L Lymph % (Auto) [place] % (Auto) Lymph # [place] # Seg Neutrophils % PT INR D-Dimer Heparin Anti-Xa Level POC ABG pH POC ABG pCO2 POC ABG pO2 Sodium Potassium 3.4 L Chloride Carbon Dioxide BUN Creatinine Glucose 128 H POC Glucose 140 H Lactic Acid Calcium Phosphorus Iron TIBC Total Bilirubin AST ALT Lactate Dehydrogenase Total Creatine Kinase CK-MB (CK-2) CK-MB (CK-2) Rel Index Troponin T C-Reactive Protein NT-Pro-B Natriuret Pep Total Protein Albumin HDL Cholesterol Folate Ur Specific [place] Urine WBC (Auto) Crossmatch 01/05/19 01/05/19 01/05/19 08:10 11:52 17:24 WBC RBC Hgb Hct RDW Plt Count Lymph % (Auto) [place] % (Auto) Lymph # [place] # Seg Neutrophils % PT INR D-Dimer Heparin Anti-Xa Level POC ABG pH POC ABG pCO2 POC ABG pO2 Sodium Potassium Chloride Carbon Dioxide BUN Creatinine Glucose POC Glucose 134 H 178 H 124 H Lactic Acid Calcium Phosphorus Iron TIBC Total Bilirubin AST ALT Lactate Dehydrogenase Total Creatine Kinase CK-MB (CK-2) CK-MB (CK-2) Rel Index Troponin T C-Reactive Protein NT-Pro-B Natriuret Pep Total Protein Albumin HDL Cholesterol Folate Ur Specific [place] Urine WBC (Auto) Crossmatch 01/05/19 01/06/19 01/06/19 21:36 03:12 03:12 WBC RBC Hgb Hct RDW 16.7 H Plt Count 138 L Lymph % (Auto) [place] % (Auto) Lymph # [place] # Seg Neutrophils % PT INR D-Dimer Heparin Anti-Xa Level POC ABG pH POC ABG pCO2 POC ABG pO2 Sodium Potassium 3.4 L Chloride Carbon Dioxide BUN Creatinine Glucose 112 H POC Glucose 119 H Lactic Acid Calcium Phosphorus Iron TIBC Total Bilirubin AST ALT Lactate Dehydrogenase Total Creatine Kinase CK-MB (CK-2) CK-MB (CK-2) Rel Index Troponin T C-Reactive Protein NT-Pro-B Natriuret Pep Total Protein Albumin HDL Cholesterol Folate Ur Specific [place] Urine WBC (Auto) Crossmatch 01/06/19 01/06/19 01/06/19 08:11 10:22 10:22 WBC RBC Hgb Hct RDW 16.7 H Plt Count Lymph % (Auto) [place] % (Auto) Lymph # [place] # Seg Neutrophils % PT INR D-Dimer Heparin Anti-Xa Level POC ABG pH POC ABG pCO2 POC ABG pO2 Sodium Potassium 3.5 L Chloride Carbon Dioxide BUN Creatinine Glucose 151 H POC Glucose 112 H Lactic Acid Calcium Phosphorus Iron TIBC Total Bilirubin AST ALT Lactate Dehydrogenase Total Creatine Kinase CK-MB (CK-2) CK-MB (CK-2) Rel Index Troponin T C-Reactive Protein NT-Pro-B Natriuret Pep Total Protein Albumin HDL Cholesterol Folate Ur Specific [place] Urine WBC (Auto) Crossmatch 01/06/19 01/06/19 01/06/19 11:51 17:04 17:57 WBC RBC Hgb Hct RDW Plt Count Lymph % (Auto) [place] % (Auto) Lymph # [place] # Seg Neutrophils % PT INR D-Dimer Heparin Anti-Xa Level POC ABG pH POC ABG pCO2 POC ABG pO2 Sodium Potassium Chloride Carbon Dioxide BUN Creatinine Glucose POC Glucose 148 H 135 H Lactic Acid Calcium Phosphorus Iron TIBC Total Bilirubin AST ALT Lactate Dehydrogenase Total Creatine Kinase CK-MB (CK-2) CK-MB (CK-2) Rel Index Troponin T C-Reactive Protein NT-Pro-B Natriuret Pep 4783 H Total Protein Albumin HDL Cholesterol Folate Ur Specific [place] Urine WBC (Auto) Crossmatch 01/06/19 01/07/19 01/07/19 20:59 08:35 10:34 WBC RBC Hgb Hct RDW Plt Count Lymph % (Auto) [place] % (Auto) Lymph # [place] # Seg Neutrophils % PT INR D-Dimer Heparin Anti-Xa Level POC ABG pH POC ABG pCO2 POC ABG pO2 Sodium Potassium Chloride Carbon Dioxide BUN Creatinine Glucose 129 H POC Glucose 115 H 143 H Lactic Acid Calcium Phosphorus Iron TIBC Total Bilirubin AST ALT Lactate Dehydrogenase Total Creatine Kinase CK-MB (CK-2) CK-MB (CK-2) Rel Index Troponin T C-Reactive Protein NT-Pro-B Natriuret Pep Total Protein Albumin HDL Cholesterol Folate Ur Specific [place] Urine WBC (Auto) Crossmatch 01/07/19 01/07/19 01/07/19 11:31 16:16 20:49 WBC RBC Hgb Hct RDW Plt Count Lymph % (Auto) [place] % (Auto) Lymph # [place] # Seg Neutrophils % PT INR D-Dimer Heparin Anti-Xa Level POC ABG pH POC ABG pCO2 POC ABG pO2 Sodium Potassium Chloride Carbon Dioxide BUN Creatinine Glucose POC Glucose 144 H 133 H 138 H Lactic Acid Calcium Phosphorus Iron TIBC Total Bilirubin AST ALT Lactate Dehydrogenase Total Creatine Kinase CK-MB (CK-2) CK-MB (CK-2) Rel Index Troponin T C-Reactive Protein NT-Pro-B Natriuret Pep Total Protein Albumin HDL Cholesterol Folate Ur Specific [place] Urine WBC (Auto) Crossmatch 01/08/19 01/08/19 01/08/19 00:19 05:11 05:11 WBC RBC Hgb Hct RDW 16.9 H Plt Count Lymph % (Auto) [place] % (Auto) Lymph # [place] # Seg Neutrophils % PT INR D-Dimer Heparin Anti-Xa Level POC ABG pH POC ABG pCO2 POC ABG pO2 Sodium Potassium Chloride Carbon Dioxide BUN Creatinine Glucose 144 H POC Glucose 129 H Lactic Acid Calcium Phosphorus Iron TIBC Total Bilirubin AST ALT Lactate Dehydrogenase Total Creatine Kinase CK-MB (CK-2) CK-MB (CK-2) Rel Index Troponin T C-Reactive Protein NT-Pro-B Natriuret Pep Total Protein Albumin HDL Cholesterol Folate Ur Specific [place] Urine WBC (Auto) Crossmatch 01/08/19 01/08/19 01/08/19 07:32 11:56 16:40 WBC RBC Hgb Hct RDW Plt Count Lymph % (Auto) [place] % (Auto) Lymph # [place] # Seg Neutrophils % PT INR D-Dimer Heparin Anti-Xa Level POC ABG pH POC ABG pCO2 POC ABG pO2 Sodium Potassium Chloride Carbon Dioxide BUN Creatinine Glucose POC Glucose 134 H 162 H 166 H Lactic Acid Calcium Phosphorus Iron TIBC Total Bilirubin AST ALT Lactate Dehydrogenase Total Creatine Kinase CK-MB (CK-2) CK-MB (CK-2) Rel Index Troponin T C-Reactive Protein NT-Pro-B Natriuret Pep Total Protein Albumin HDL Cholesterol Folate Ur Specific [place] Urine WBC (Auto) Crossmatch 01/08/19 01/09/19 01/09/19 21:36 08:42 11:41 WBC RBC Hgb Hct RDW Plt Count Lymph % (Auto) [place] % (Auto) Lymph # [place] # Seg Neutrophils % PT INR D-Dimer Heparin Anti-Xa Level POC ABG pH POC ABG pCO2 POC ABG pO2 Sodium Potassium Chloride Carbon Dioxide BUN Creatinine Glucose POC Glucose 166 H 114 H 136 H Lactic Acid Calcium Phosphorus Iron TIBC Total Bilirubin AST ALT Lactate Dehydrogenase Total Creatine Kinase CK-MB (CK-2) CK-MB (CK-2) Rel Index Troponin T C-Reactive Protein NT-Pro-B Natriuret Pep Total Protein Albumin HDL Cholesterol Folate Ur Specific [place] Urine WBC (Auto) Crossmatch 01/09/19 01/09/19 01/10/19 16:06 21:59 11:46 WBC RBC Hgb Hct RDW Plt Count Lymph % (Auto) [place] % (Auto) Lymph # [place] # Seg Neutrophils % PT INR D-Dimer Heparin Anti-Xa Level POC ABG pH POC ABG pCO2 POC ABG pO2 Sodium Potassium Chloride Carbon Dioxide BUN Creatinine Glucose POC Glucose 130 H 159 H 126 H Lactic Acid Calcium Phosphorus Iron TIBC Total Bilirubin AST ALT Lactate Dehydrogenase Total Creatine Kinase CK-MB (CK-2) CK-MB (CK-2) Rel Index Troponin T C-Reactive Protein NT-Pro-B Natriuret Pep Total Protein Albumin HDL Cholesterol Folate Ur Specific [place] Urine WBC (Auto) Crossmatch 01/10/19 01/10/19 01/11/19 16:45 22:41 04:09 WBC 4.4 L RBC Hgb Hct RDW 16.5 H Plt Count 131 L Lymph % (Auto) [place] % (Auto) 11.8 H Lymph # 0.7 L [place] # Seg Neutrophils % PT INR D-Dimer Heparin Anti-Xa Level POC ABG pH POC ABG pCO2 POC ABG pO2 Sodium Potassium Chloride Carbon Dioxide BUN Creatinine Glucose POC Glucose 136 H 132 H Lactic Acid Calcium Phosphorus Iron TIBC Total Bilirubin AST ALT Lactate Dehydrogenase Total Creatine Kinase CK-MB (CK-2) CK-MB (CK-2) Rel Index Troponin T C-Reactive Protein NT-Pro-B Natriuret Pep Total Protein Albumin HDL Cholesterol Folate Ur Specific [place] Urine WBC (Auto) Crossmatch 01/11/19 01/11/19 01/11/19 04:09 07:31 11:54 WBC RBC Hgb Hct RDW Plt Count Lymph % (Auto) [place] % (Auto) Lymph # [place] # Seg Neutrophils % PT INR D-Dimer Heparin Anti-Xa Level POC ABG pH POC ABG pCO2 POC ABG pO2 Sodium 146 H Potassium 3.4 L D Chloride 96.9 L Carbon Dioxide 40 H D BUN Creatinine 0.7 L Glucose 110 H POC Glucose 116 H 138 H Lactic Acid Calcium Phosphorus 2.30 L Iron TIBC Total Bilirubin AST ALT Lactate Dehydrogenase Total Creatine Kinase CK-MB (CK-2) CK-MB (CK-2) Rel Index Troponin T C-Reactive Protein NT-Pro-B Natriuret Pep Total Protein 5.4 L Albumin 2.6 L HDL Cholesterol Folate Ur Specific [place] Urine WBC (Auto) Crossmatch 01/11/19 01/12/19 01/12/19 16:33 03:04 08:23 WBC RBC Hgb Hct RDW Plt Count Lymph % (Auto) [place] % (Auto) Lymph # [place] # Seg Neutrophils % PT INR D-Dimer Heparin Anti-Xa Level POC ABG pH POC ABG pCO2 POC ABG pO2 Sodium Potassium Chloride Carbon Dioxide BUN Creatinine Glucose POC Glucose 147 H 106 H 128 H Lactic Acid Calcium Phosphorus Iron TIBC Total Bilirubin AST ALT Lactate Dehydrogenase Total Creatine Kinase CK-MB (CK-2) CK-MB (CK-2) Rel Index Troponin T C-Reactive Protein NT-Pro-B Natriuret Pep Total Protein Albumin HDL Cholesterol Folate Ur Specific [place] Urine WBC (Auto) Crossmatch 01/12/19 01/12/19 01/12/19 11:24 16:33 21:49 WBC RBC Hgb Hct RDW Plt Count Lymph % (Auto) [place] % (Auto) Lymph # [place] # Seg Neutrophils % PT INR D-Dimer Heparin Anti-Xa Level POC ABG pH POC ABG pCO2 POC ABG pO2 Sodium Potassium Chloride Carbon Dioxide BUN Creatinine Glucose POC Glucose 146 H 168 H 111 H Lactic Acid Calcium Phosphorus Iron TIBC Total Bilirubin AST ALT Lactate Dehydrogenase Total Creatine Kinase CK-MB (CK-2) CK-MB (CK-2) Rel Index Troponin T C-Reactive Protein NT-Pro-B Natriuret Pep Total Protein Albumin HDL Cholesterol Folate Ur Specific [place] Urine WBC (Auto) Crossmatch 01/13/19 01/13/19 01/13/19 07:30 10:04 11:41 WBC RBC Hgb Hct RDW Plt Count Lymph % (Auto) [place] % (Auto) Lymph # [place] # Seg Neutrophils % PT INR D-Dimer Heparin Anti-Xa Level POC ABG pH POC ABG pCO2 POC ABG pO2 Sodium Potassium Chloride 89.5 L Carbon Dioxide 46 H* BUN Creatinine 0.7 L Glucose 107 H POC Glucose 108 H 110 H Lactic Acid Calcium Phosphorus Iron TIBC Total Bilirubin AST ALT Lactate Dehydrogenase Total Creatine Kinase CK-MB (CK-2) CK-MB (CK-2) Rel Index Troponin T C-Reactive Protein NT-Pro-B Natriuret Pep Total Protein Albumin HDL Cholesterol Folate Ur Specific [place] Urine WBC (Auto) Crossmatch 01/13/19 01/13/19 01/14/19 16:31 21:37 07:30 WBC RBC Hgb Hct RDW Plt Count Lymph % (Auto) [place] % (Auto) Lymph # [place] # Seg Neutrophils % PT INR D-Dimer Heparin Anti-Xa Level POC ABG pH POC ABG pCO2 POC ABG pO2 Sodium Potassium Chloride Carbon Dioxide BUN Creatinine Glucose POC Glucose 129 H 123 H 110 H Lactic Acid Calcium Phosphorus Iron TIBC Total Bilirubin AST ALT Lactate Dehydrogenase Total Creatine Kinase CK-MB (CK-2) CK-MB (CK-2) Rel Index Troponin T C-Reactive Protein NT-Pro-B Natriuret Pep Total Protein Albumin HDL Cholesterol Folate Ur Specific [place] Urine WBC (Auto) Crossmatch 01/14/19 11:32 WBC RBC Hgb Hct RDW Plt Count Lymph % (Auto) [place] % (Auto) Lymph # [place] # Seg Neutrophils % PT INR D-Dimer Heparin Anti-Xa Level POC ABG pH POC ABG pCO2 POC ABG pO2 Sodium Potassium Chloride Carbon Dioxide BUN Creatinine Glucose POC Glucose 130 H Lactic Acid Calcium Phosphorus Iron TIBC Total Bilirubin AST ALT Lactate Dehydrogenase Total Creatine Kinase CK-MB (CK-2) CK-MB (CK-2) Rel Index Troponin T C-Reactive Protein NT-Pro-B Natriuret Pep Total Protein Albumin HDL Cholesterol Folate Ur Specific [place] Urine WBC (Auto) Crossmatch Chest x-ray: report reviewed (Cardiomegaly, suspected bilateral Pleural effusions), image reviewed Allied health notes reviewed: nursing
[2019-01-14] MEDS: NEURONTIN PO SCH (21:47)
--- NOTE | 2019-01-14 21:51 | Progress Note ---
Assessment and Plan Assessment and plan: 73-year-old male, with morbid obesity, HTN, CAD, s/p ND, Seizure, admitted after spouse found him on the floor with agonal breathing 10 mins after he went to bed. EMS was called and transported to the hospital in. He was diagnosed with acute respiratory failure, intubated in the ED. Patient was extubated on 01/01, put on BIPAP . Currently patient is on Ventimask because he mouth breathes, desaturates, and pull of NC, when sleeping. He was diagnosed with sepsis due to pneumonia, completed Antibiotics. He is also diagnosed with DVT both legs, seen by Dr. Rivera, was put on Arixtra. He had thrombocytopenia, now resolved. He is being switched to Eliquis since 01/07 . He pulled out Peripheral iv line and Mid line overnight 01/03, and also pulled out right chest tube overnight 01/04. He has been confused, agitated on and off. Started on on Haldol prn , and Seroquel nightly.mentation improved Diagnosis Acute Hypoxic Respiratory failure- s/p extubated 01/01 Seizure Disorder DVT bilateral lower extremity Sepsis Right sided Pneumonia Large Right sided Pleural effusion- s/p chest tube was placed, s/p removal by patient Shock syndrome questionable septic versus cardiogenic Hypokalemia Morbid Obesity Thrombocytopenia- resolved Non ST elevated ND type II Presumed ischemic cardiomyopathy status post CABG Toxic metabolic encephalopathy Severe Protein calorie malnutrition Hyponatremia Hypocalcemia History of CVA 2 years ago Acute metabolic encephalopathy Plan: acute resp failure on MV <96 hours Previously intubated, extubated on 01/01 , placed on BIPAP nocturnally, placed on Venti mass due to mouth breathing when asleep, and NC when awake CHF with bilat pleural effusions effusions improving with lasix, no longer needs repeat R thoracenteisis, restart eliquis and plavix and work on dc planning Septic vs cardiogenic shock optimize cardiac meds, off pressors -has completed empiric abx, no clear source, ID input appreciated, they signed off on 01/11 Monitor electrolytes and replete prn Dementia with behavioral disturbance, encephalopathy, sundowning -improved with psych meds, Ataxia; debility wants SOPHY placement, patient is refusing, and he is not safe to go home counseled patient and advised him that rehab is the best option for him Bilat LE DVT; on eliquis Thrombocytopenia might have been due to entensive DVT resolved, back on blood thinners, hematology input appreciated History Interval history: Review of systems Constitutional: No fevers, no malaise, no joint pains CVS: No chest pain, no orthopnea, no dyspnea on exertion, no pedal edema GI: No abdominal pain, no diarrhea, no vomiting, no constipation Respiratory: No shortness of breath, no wheezing, no coughing Hospitalist Physical - Physical exam Narrative exam: General.: Appears well, no distress, nontoxic HEENT: Moist mucous membranes, extraocular muscles intact, no lymphadenopathy Neck: supple Cardiac: S1-S2 heard Lungs: dull in bases Abdomen: soft , nontender, nondistended, bowel sounds positive Extremities: no edema clubbing or cyanosis Skin: no rash or lesions Neurologic: no gross focal deficits, Psych: calm, and cooperative - Constitutional Vitals: Temp Pulse Resp BP Pulse Ox 97.3 F L 78 20 123/69 90 01/14/19 20:36 01/14/19 21:47 01/14/19 20:36 01/14/19 21:47 01/14/19 20:36 General appearance: Present: no acute distress, obese Results - Labs CBC & Chem 7: 01/15/19 07:21 01/15/19 07:21 Labs: Laboratory Last Values WBC 4.4 K/mm3 (4.5-11.0) L 01/11/19 04:09 RBC 4.32 M/mm3 (3.65-5.03) 01/11/19 04:09 Hgb 12.6 gm/dl (11.8-15.2) 01/11/19 04:09 Hct 38.6 % (35.5-45.6) 01/11/19 04:09 MCV 89 fl (84-94) 01/11/19 04:09 MCH 29 pg (28-32) 01/11/19 04:09 MCHC 33 % (32-34) 01/11/19 04:09 RDW 16.5 % (13.2-15.2) H 01/11/19 04:09 Plt Count 131 K/mm3 (140-440) L 01/11/19 04:09 Lymph % (Auto) 15.0 % (13.4-35.0) 01/11/19 04:09 [place] % (Auto) 11.8 % (0.0-7.3) H 01/11/19 04:09 Eos % (Auto) 2.9 % (0.0-4.3) 01/11/19 04:09 Baso % (Auto) 0.4 % (0.0-1.8) 01/11/19 04:09 Lymph # 0.7 K/mm3 (1.2-5.4) L 01/11/19 04:09 [place] # 0.5 K/mm3 (0.0-0.8) 01/11/19 04:09 Eos # 0.1 K/mm3 (0.0-0.4) 01/11/19 04:09 Baso # 0.0 K/mm3 (0.0-0.1) 01/11/19 04:09 Seg Neutrophils % 69.9 % (40.0-70.0) 01/11/19 04:09 Seg Neutrophils # 3.0 K/mm3 (1.8-7.7) 01/11/19 04:09 PT 16.5 Sec. (12.2-14.9) H 12/30/18 18:17 INR 1.25 (0.87-1.13) H 12/30/18 18:17 APTT 33.1 Sec. (24.2-36.6) 12/30/18 18:17 D-Dimer 815.50 ng/mlDDU (0-234) H 12/28/18 23:58 Heparin Anti-Xa Level 0.70 U.I./ml (0.3-0.7) 01/02/19 05:09 Heparin Anti-Xa, Unfract Negative (Negative) 01/02/19 05:26 POC ABG pH 7.318 (7.35-7.45) L 01/02/19 11:21 POC ABG pCO2 56.7 (35-45) H 01/02/19 11:21 POC ABG pO2 215 (80-105) H 01/02/19 11:21 POC ABG HCO3 29.1 (22-26 mml/L) 01/02/19 11:21 POC ABG Total CO2 31 (23-27mmol/L) 01/02/19 11:21 POC ABG O2 Sat 100 01/02/19 11:21 POC ABG Base Excess 3 ((-2) - (+3)mmol/L) 01/02/19 11:21 FiO2 60 % 01/02/19 11:21 Sodium 143 mmol/L (137-145) 01/13/19 10:04 Potassium 3.9 mmol/L (3.6-5.0) 01/13/19 10:04 Chloride 89.5 mmol/L (98-107) L 01/13/19 10:04 Carbon Dioxide 46 mmol/L (22-30) H* 01/13/19 10:04 Anion Gap 11 mmol/L 01/13/19 10:04 BUN 15 mg/dL (9-20) 01/13/19 10:04 Creatinine 0.7 mg/dL (0.8-1.5) L 01/13/19 10:04 Estimated GFR > 60 ml/min 01/13/19 10:04 BUN/Creatinine Ratio 21 % 01/13/19 10:04 Glucose 107 mg/dL (75-100) H 01/13/19 10:04 POC Glucose 100 (70-105) 01/14/19 21:37 Lactic Acid 1.50 mmol/L (0.7-2.0) 12/30/18 11:42 Calcium 9.0 mg/dL (8.4-10.2) 01/13/19 10:04 Phosphorus 2.30 mg/dL (2.5-4.5) L 01/11/19 04:09 Magnesium 2.00 mg/dL (1.7-2.3) 01/11/19 04:09 Iron 34 ug/dL (49-181) L 01/02/19 05:09 TIBC 231 mcg/dL (250-450) L 01/02/19 05:09 Ferritin 163.3 ng/mL (13.0-400.0) 01/02/19 05:09 Total Bilirubin 0.70 mg/dL (0.1-1.2) 01/11/19 04:09 AST 17 units/L (5-40) 01/11/19 04:09 ALT 11 units/L (7-56) 01/11/19 04:09 Alkaline Phosphatase 51 units/L (35-129) 01/11/19 04:09 Lactate Dehydrogenase 405 units/L (91-180) H 12/29/18 15:02 Total Creatine Kinase 837 units/L (55-170) H 12/29/18 12:51 CK-MB (CK-2) 10.5 ng/mL (0.0-4.0) H 12/29/18 12:51 CK-MB (CK-2) Rel Index 1.2 (0-4) 12/29/18 12:51 Troponin T 0.060 ng/mL (0.00-0.029) H D 12/30/18 13:53 C-Reactive Protein 2.80 mg/dL (0.00-1.30) H 12/29/18 16:46 NT-Pro-B Natriuret Pep 4783 pg/mL (0-900) H 01/06/19 17:04 Total Protein 5.4 g/dL (6.3-8.2) L 01/11/19 04:09 Albumin 2.6 g/dL (3.9-5) L 01/11/19 04:09 Albumin/Globulin Ratio 0.9 % 01/11/19 04:09 Triglycerides 113 mg/dL (2-149) 12/29/18 08:34 Cholesterol 120 mg/dL (50-199) 12/29/18 08:34 LDL Cholesterol Direct 82 mg/dL (50-130) 12/29/18 08:34 HDL Cholesterol 34 mg/dL (40-59) L 12/29/18 08:34 Cholesterol/HDL Ratio 3.52 % 12/29/18 08:34 Serotonin Release Assay See scanned result 01/02/19 05:26 Vitamin B12 365.3 pg/mL (211-911) 01/02/19 05:09 Folate 6.01 ng/mL (7.3-26.0) L 01/02/19 05:09 Urine Color [place] (Yellow) 12/29/18 03:00 Urine Turbidity Cloudy (Clear) 12/29/18 03:00 Urine pH 5.0 (5.0-7.0) 12/29/18 03:00 Ur Specific [place] 1.033 (1.003-1.030) H 12/29/18 03:00 Urine Protein >500 mg/dL (Negative) 12/29/18 03:00 Urine Glucose (UA) 150 mg/dL (Negative) 12/29/18 03:00 Urine Ketones Neg mg/dL (Negative) 12/29/18 03:00 Urine Blood Mod (Negative) 12/29/18 03:00 Urine Nitrite Neg (Negative) 12/29/18 03:00 Urine Bilirubin Neg (Negative) 12/29/18 03:00 Urine Urobilinogen < 2.0 mg/dL (<2.0) 12/29/18 03:00 Ur Leukocyte Esterase Neg (Negative) 12/29/18 03:00 Urine WBC (Auto) 31.0 /HPF (0.0-6.0) H 12/29/18 03:00 Urine RBC (Auto) 27.0 /HPF (0.0-6.0) 12/29/18 03:00 U Epithel Cells (Auto) 4.0 /HPF (0-13.0) 12/29/18 03:00 Urine Bacteria (Auto) 4+ /HPF (Negative) 12/29/18 03:00 Urine Mucus 3+ /HPF 12/29/18 03:00 Urine Opiates Screen Presumptive negative 12/29/18 03:00 Urine Methadone Screen Presumptive negative 12/29/18 03:00 Ur Barbiturates Screen Presumptive negative 12/29/18 03:00 Ur Phencyclidine Scrn Presumptive negative 12/29/18 03:00 Ur Amphetamines Screen Presumptive negative 12/29/18 03:00 U Benzodiazepines Scrn Presumptive negative 12/29/18 03:00 Urine Cocaine Screen Presumptive negative 12/29/18 03:00 U Marijuana (THC) Screen Presumptive negative 12/29/18 03:00 Drugs of Abuse Note Disclamer 12/29/18 03:00 Heparin-induced Plt Ab Negative (Negative) 01/02/19 05:26 UF Heparin High Dose 0 % Release 01/02/19 05:26 THOMAS UFH Low Dose 0.1 0 % Release 01/02/19 05:26 THOMAS UFH Low Dose 0.5 0 % Release 01/02/19 05:26 Urine Legionella Ag Not detected (Not Detected) 12/31/18 05:30 Blood Type O POSITIVE 12/29/18 01:53 Antibody Screen Negative 12/29/18 01:53 Crossmatch See Detail 12/29/18 01:53 Active Medications - Current Medications Current Medications: Generic Name Dose Route Start Last Admin Trade Name Freq PRN Reason Stop Dose Admin Acetaminophen 650 mg 12/29/18 04:49 12/30/18 08:33 Tylenol GA 650 mg Q4H PRN Administration Fever >101 Acetaminophen 650 mg 01/13/19 18:56 01/13/19 19:01 Tylenol PO 650 mg Q6H PRN Administration Pain, Mild (1-3) Albuterol/Ipratropium 1 ampul 01/01/19 14:00 01/14/19 19:09 Duoneb *Not For Prn Use* IH 1 ampul Q6HRT WENDY Administration Apixaban 5 mg 01/12/19 22:00 01/14/19 21:47 Eliquis PO 5 mg Q12HR WENDY Administration Protocol Atorvastatin Calcium 40 mg 01/04/19 22:00 01/14/19 21:47 Lipitor PO 40 mg QHS WENDY Administration Clopidogrel Bisulfate 75 mg 01/12/19 21:00 01/14/19 10:16 Plavix PO 75 mg QDAY WENDY Administration Dextrose 50 ml 12/29/18 04:47 D50w (25gm) Syringe IV PRN PRN Hypoglycemia Famotidine 20 mg 01/04/19 10:00 01/14/19 21:47 Pepcid PO 20 mg BID WENDY Administration Folic Acid 1 mg 01/06/19 12:00 01/14/19 10:17 Folvite PO 1 mg QDAY WENDY Administration Furosemide 20 mg 01/13/19 13:40 01/14/19 10:31 Lasix IV 20 mg 1000 WENDY Administration Gabapentin 300 mg 01/10/19 22:00 01/14/19 21:47 Neurontin PO 300 mg HS WENDY Administration Haloperidol Lactate 5 mg 01/07/19 11:33 01/12/19 02:21 Haldol IM 5 mg Q6H PRN Administration Agitation Hydralazine HCl 10 mg 01/01/19 13:23 Apresoline IV Q4HR PRN SBP >/=170 Insulin Human Regular 0 units 01/04/19 11:30 01/14/19 21:48 Humulin R SUB-Q Not Given ACHS [facility] Protocol Levetiracetam 500 mg 01/04/19 10:00 01/14/19 21:47 Keppra PO 500 mg BID WENDY Administration Losartan Potassium 50 mg 01/04/19 11:00 01/14/19 10:31 Cozaar PO 50 mg DAILY WENDY Administration Metformin HCl 500 mg 01/10/19 17:00 01/14/19 16:29 Glucophage Xr PO 500 mg BIDDIAB WENDY Administration Metoprolol Tartrate 12.5 mg 01/03/19 11:00 01/14/19 21:47 Lopressor PO 12.5 mg BID WENDY Administration Ondansetron HCl 4 mg 12/29/18 04:49 Zofran IV Q8H PRN Nausea And Vomiting Quetiapine Fumarate 50 mg 01/08/19 22:00 01/14/19 21:46 Seroquel PO 50 mg QHS WENDY Administration Ropinirole HCl 1 mg 01/11/19 10:00 01/14/19 10:17 Requip PO 1 mg DAILY WENDY Administration Sertraline HCl 100 mg 01/11/19 10:00 01/14/19 10:17 Zoloft PO 100 mg QDAY WENDY Administration Nutrition/Malnutrition Assess - Dietary Evaluation Nutrition/Malnutrition Findings: Nutrition Notes Start: 12/31/18 14:59 Freq: Status: Active Protocol: Document 01/12/19 11:17 [facility] (Rec: 01/12/19 11:22 [facility] [id number]) Nutrition Notes Initial or Follow up Reassessment Current Diagnosis Coronary Artery Disease, Diabetes,Hypertension, Respiratory Failure Other Pertinent Diagnosis (R) lung effusion, (R) pneu Current Diet Cardiac/consistent carbohydrate + Glucerna BID Labs/Tests Reviewed Pertinent Medications Reviewed Height 5 ft 7 in Weight 126.5 kg [place] Body Weight (kg) 67.27 BMI 43.7 Subjective/Other Information Pt consuming 19% of meals. He is confused and agitated at times. Burn Absent Trauma Absent #1 Nutrition Diagnosis Inadequate oral intake Diagnosis Progress(for reassessment Continues documentation) Is patient on ventilator? No Is Patient Ambulatory and/or Out of Bed No REE-([facility] [place]-confined to bed) 2356.032 Kcal/Kg value to use for calculation 14 Approximate Energy Requirements Using 1771 kcal/Kg Additional Notes Pro needs 1-1.2g/kg adjBW: 97- 116g/day Fluid needs 1ml/kcal Nutrition Intervention Change Diet Order: Continue current diet order Add Supplement/Snack (indicate name/kcal Glucerna [place] BID /protein ) Provides kCal: 440 Provides Protein (gm) 20 Goal #1 PO intake of meals plus ONS to meet at least 75% of energy and pro needs Follow-Up By: 01/15/19 Additional Comments F/U: intakes (meals/ONS), wt
[2019-01-15] MEDS: DUONEB *Not for PRN Use IH SCH ×3 (01:13→14:31)
[2019-01-15 07:45] LABS: Hematocrit 39.8 % (35.5-45.6); Hemoglobin 13.3 gm/dl (11.8-15.2); Mean Corpuscular HGB Conc 34 % (32-34); Mean Corpuscular Volume 88 fl (84-94); Platelet Count 112 K/mm3 (140-440); Red Blood Count 4.54 M/mm3 (3.65-5.03); Red Cell Distribution Width 16.8 % (13.2-15.2)
[2019-01-15] MEDS: HumuLIN R SUB-Q SCH (08:00)
[2019-01-15 08:05] LABS: BUN/Creatinine Ratio 19; Blood Urea Nitrogen 13 mg/dL (9-20); Calcium 8.9 mg/dL (8.4-10.2); Hemolysis Index 59
[2019-01-15] MEDS: GLUCOPHAGE XR PO SCH (08:40)
[2019-01-15] MEDS: REQUIP PO SCH (10:48)
[2019-01-15] MEDS: LOPRESSOR PO SCH (10:48)
[2019-01-15] MEDS: LASIX IV SCH (10:48)
[2019-01-15] MEDS: ELIQUIS PO SCH (10:48)
[2019-01-15] MEDS: KEPPRA PO SCH (10:48)
[2019-01-15] MEDS: FOLVITE PO SCH (10:48)
[2019-01-15] MEDS: ZOLOFT PO SCH (10:48)
[2019-01-15] MEDS: COZAAR PO SCH (10:48)
[2019-01-15] MEDS: PLAVIX PO SCH (10:48)
[2019-01-15] MEDS: PEPCID PO SCH (10:48)
--- NOTE | 2019-01-15 10:59 | Hem/Onc Progress Note ---
Assessment and Plan 1. Deep venous thrombosis, left common femoral and right peroneal; bilateral leg swelling present. The patient was placed on heparin drip. His platelets had slightly fallen down. 2. The patient's platelet count at admission was 99 and then 196, 125, and 114. It is possible that the patient's baseline platelets are also low. 3. History of diabetes. 4. History of coronary artery disease. 5. Radiology showed right pleural effusion at one time. 6. History of seizure disorder as per the notes. 7. Myocardial infarction. 8. Status post coronary artery bypass graft. 9. Electrolyte imbalance. 10. History of cerebrovascular accident. 11. History of pneumonia. 12. h/o rt chest tube - h/o pl effusion - pt pulled out. plt >100 US abdo limited - does not mention liver and spleen size. 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 uses CPAP at home low folate - on replacement restarted eliquis no thoracentesis as not much pl effusion pt says was walking at home prior to all this - encouraged therapy/ambulation d/w - OP follow up - Patient Problems (1) DVT (deep venous thrombosis) Status: Acute (2) Thrombocytopenia Status: Acute Subjective Date of service: 01/15/19 Principal diagnosis: dvt Interval history: d/c plan Objective - Constitutional Vitals: Last Vital Signs Temp 97.8 F 01/15/19 08:02 Pulse 79 01/15/19 10:47 Resp 16 01/15/19 08:57 BP 85/51 01/15/19 10:47 Pulse Ox 94 01/15/19 10:47 Pain Intensity (0-10): denies any pain General appearance: no acute distress Performance status: 3-limited selfcare - EENT Eyes: EOM intact ENT: hearing intact Lymph node exam: negative cervical - Neck Neck: normal ROM - Respiratory Respiratory effort: Positive: normal Respiratory: bilateral: CTA - Cardiovascular Heart Sounds: Present: S1 & S2 Extremities: No edema - Gastrointestinal General gastrointestinal: Present: soft, non-tender Rectal Exam: deferred - Genitourinary Male genitourinary: Present: deferred - Integumentary Integumentary: warm - Musculoskeletal Musculoskeletal: strength equal bilaterally, generalized weakness - Neurologic Neurologic: moves all extremities - Labs Lab Results: Laboratory Results - last 24 hr 01/14/19 01/14/19 01/14/19 11:32 16:46 21:37 WBC RBC Hgb Hct MCV MCH MCHC RDW Plt Count [place] % (Auto) POC ABG pH POC ABG pCO2 POC ABG pO2 POC ABG HCO3 POC ABG Total CO2 POC ABG O2 Sat POC ABG Base Excess FiO2 Sodium Potassium Chloride Carbon Dioxide Anion Gap BUN Creatinine Estimated GFR BUN/Creatinine Ratio Glucose POC Glucose 130 H 105 100 Calcium 01/15/19 01/15/19 01/15/19 07:21 07:21 07:26 WBC 3.1 L RBC 4.54 Hgb 13.3 Hct 39.8 MCV 88 MCH 29 MCHC 34 RDW 16.8 H Plt Count 112 L [place] % (Auto) [employer] POC ABG pH POC ABG pCO2 POC ABG pO2 POC ABG HCO3 POC ABG Total CO2 POC ABG O2 Sat POC ABG Base Excess FiO2 Sodium 142 Potassium 4.0 Chloride 94.3 L Carbon Dioxide 40 H Anion Gap 12 BUN 13 Creatinine 0.7 L Estimated GFR > 60 BUN/Creatinine Ratio 19 Glucose 105 H POC Glucose 101 Calcium 8.9 01/15/19 09:24 WBC RBC Hgb Hct MCV MCH MCHC RDW Plt Count [place] % (Auto) POC ABG pH 7.481 H POC ABG pCO2 53.4 H POC ABG pO2 52 L POC ABG HCO3 39.9 POC ABG Total CO2 42 POC ABG O2 Sat 88 POC ABG Base Excess 16 FiO2 21 Sodium Potassium Chloride Carbon Dioxide Anion Gap BUN Creatinine Estimated GFR BUN/Creatinine Ratio Glucose POC Glucose Calcium Medications & Allergies - Medications Allergies/Adverse Reactions: Allergies Penicillins Allergy (Verified 12/29/18 04:18) Unknown Home Medications: Home Medications Medication Instructions Recorded Confirmed Last Taken Type Aspirin 81 mg PO DAILY 12/30/18 12/30/18 12/30/18 History AtorvaSTATin 40 mg PO HS 12/30/18 12/30/18 12/28/18 History Clopidogrel Bisulfate [Clopidogrel] 75 mg PO DAILY 12/30/18 12/30/18 12/28/18 History Furosemide 40 mg PO DAILY 12/30/18 12/30/18 12/28/18 History Gabapentin [Neurontin] 300 mg PO HS 12/30/18 12/30/18 12/28/18 History Losartan [Cozaar] 50 mg .ROUTE DAILY 12/30/18 12/30/18 12/28/18 History Metformin ER (Nf) 500 gm .ROUTE BID 12/30/18 12/30/18 12/28/18 History Potassium 10 meq PO DAILY 12/30/18 12/30/18 12/28/18 History Ropinirole HCl 1 mg PO DAILY 12/30/18 12/30/18 12/28/18 History Sertraline 25 mg PO DAILY 12/30/18 12/30/18 12/28/18 History Sertraline 75 mg PO DAILY 12/30/18 12/30/18 12/28/18 History Apixaban [Eliquis] 5 mg PO Q12HR #60 tablet 01/15/19 Unknown Rx Metoprolol 12.5 mg PO DAILY #60 01/15/19 12/30/18 12/28/18 Rx Nystas/Diphen/Xyl Visc/Mylanta 15 ml PO TID #1 bottle 01/15/19 Unknown Rx [Magic Mouthwash] QUEtiapine [SEROquel] 50 mg PO QHS #30 tablet 01/15/19 Unknown Rx levETIRAcetam [Keppra TAB] 500 mg PO BID #60 tablet 01/15/19 Unknown Rx Active Medications: Generic Name Dose Route Start Last Admin Trade Name Freq PRN Reason Stop Dose Admin Acetaminophen 650 mg 12/29/18 04:49 12/30/18 08:33 Tylenol [place] 650 mg Q4H PRN Administration Fever >101 Acetaminophen 650 mg 01/13/19 18:56 01/13/19 19:01 Tylenol PO 650 mg Q6H PRN Administration Pain, Mild (1-3) Albuterol/Ipratropium 1 ampul 01/01/19 14:00 01/15/19 08:57 Duoneb *Not For Prn Use* IH 1 ampul Q6HRT WENDY Administration Apixaban 5 mg 01/12/19 22:00 01/15/19 10:48 Eliquis PO 5 mg Q12HR WENDY Administration Protocol Atorvastatin Calcium 40 mg 01/04/19 22:00 01/14/19 21:47 Lipitor PO 40 mg QHS WENDY Administration Clopidogrel Bisulfate 75 mg 01/12/19 21:00 01/15/19 10:48 Plavix PO 75 mg QDAY WENDY Administration Dextrose 50 ml 12/29/18 04:47 D50w (25gm) Syringe IV PRN PRN Hypoglycemia Famotidine 20 mg 01/04/19 10:00 01/15/19 10:48 Pepcid PO 20 mg BID WENDY Administration Folic Acid 1 mg 01/06/19 12:00 01/15/19 10:48 Folvite PO 1 mg QDAY WENDY Administration Furosemide 20 mg 01/13/19 13:40 01/14/19 10:31 Lasix IV 20 mg 1000 WENDY Administration Gabapentin 300 mg 01/10/19 22:00 01/14/19 21:47 Neurontin PO 300 mg HS WENDY Administration Haloperidol Lactate 5 mg 01/07/19 11:33 01/12/19 02:21 Haldol IM 5 mg Q6H PRN Administration Agitation Hydralazine HCl 10 mg 01/01/19 13:23 Apresoline IV Q4HR PRN SBP >/=170 Insulin Human Regular 0 units 01/04/19 11:30 01/15/19 08:00 Humulin R SUB-Q Not Given ACHS [facility] Protocol Levetiracetam 500 mg 01/04/19 10:00 01/15/19 10:48 Keppra PO 500 mg BID WENDY Administration Lidocaine HCl 15 ml 01/15/19 14:00 Magic Mouthwash PO TID [facility] Losartan Potassium 50 mg 01/04/19 11:00 01/14/19 10:31 Cozaar PO 50 mg DAILY WENDY Administration Metformin HCl 500 mg 01/10/19 17:00 01/15/19 08:40 Glucophage Xr PO 500 mg BIDDIAB WENDY Administration Metoprolol Tartrate 12.5 mg 01/03/19 11:00 01/14/19 21:47 Lopressor PO 12.5 mg BID WENDY Administration Ondansetron HCl 4 mg 12/29/18 04:49 Zofran IV Q8H PRN Nausea And Vomiting Quetiapine Fumarate 50 mg 01/08/19 22:00 01/14/19 21:46 Seroquel PO 50 mg QHS WENDY Administration Ropinirole HCl 1 mg 01/11/19 10:00 01/15/19 10:48 Requip PO 1 mg DAILY WENDY Administration Sertraline HCl 100 mg 01/11/19 10:00 01/15/19 10:48 Zoloft PO 100 mg QDAY WENDY Administration
--- NOTE | 2019-01-15 11:00 | Progress Note ---
History Interval history: Patient was seen and ordered this morning, patient was getting breathing treatment by the time of examination. He was complaining sore in his mouth. patient c/o mild SOB. Hospitalist Physical - Physical exam Narrative exam: Not in cardiopulmonary distress. The patient is morbidly obese. Vital signs as documented. Head exam is unremarkable. No scleral icterus . Neck is without jugular venous distension, thyromegaly, or carotid bruits. Lungs scattered wheezing. Cardiac exam reveals regular rate and Rhythm. Abdominal exam reveals normal bowel sounds. Extremities are nonedematous and both femoral and pedal pulses are normal. CHEMICAL COMPOUNDER: Alert and oriented 3. No focal weakness. - Constitutional Vitals: Temp Pulse Resp BP Pulse Ox 97.8 F 80 16 115/44 94 01/15/19 08:02 01/15/19 08:57 01/15/19 08:57 01/15/19 08:02 01/15/19 08:58 General appearance: Present: no acute distress, obese Results - Labs CBC & Chem 7: 01/15/19 07:21 01/15/19 07:21 Labs: Laboratory Last Values WBC 3.1 K/mm3 (4.5-11.0) L 01/15/19 07:21 RBC 4.54 M/mm3 (3.65-5.03) 01/15/19 07:21 Hgb 13.3 gm/dl (11.8-15.2) 01/15/19 07:21 Hct 39.8 % (35.5-45.6) 01/15/19 07:21 MCV 88 fl (84-94) 01/15/19 07:21 MCH 29 pg (28-32) 01/15/19 07:21 MCHC 34 % (32-34) 01/15/19 07:21 RDW 16.8 % (13.2-15.2) H 01/15/19 07:21 Plt Count 112 K/mm3 (140-440) L 01/15/19 07:21 Lymph % (Auto) 15.0 % (13.4-35.0) 01/11/19 04:09 [place] % (Auto) Front Office Manager 01/15/19 07:21 Eos % (Auto) 2.9 % (0.0-4.3) 01/11/19 04:09 Baso % (Auto) 0.4 % (0.0-1.8) 01/11/19 04:09 Lymph # 0.7 K/mm3 (1.2-5.4) L 01/11/19 04:09 Edgar # 0.5 K/mm3 (0.0-0.8) 01/11/19 04:09 Eos # 0.1 K/mm3 (0.0-0.4) 01/11/19 04:09 Baso # 0.0 K/mm3 (0.0-0.1) 01/11/19 04:09 Seg Neutrophils % 69.9 % (40.0-70.0) 01/11/19 04:09 Seg Neutrophils # 3.0 K/mm3 (1.8-7.7) 01/11/19 04:09 PT 16.5 Sec. (12.2-14.9) H 12/30/18 18:17 INR 1.25 (0.87-1.13) H 12/30/18 18:17 APTT 33.1 Sec. (24.2-36.6) 12/30/18 18:17 815.50 ng/mlDDU (0-234) H 12/28/18 23:58 Heparin Anti-Xa Level 0.70 U.I./ml (0.3-0.7) 01/02/19 05:09 Heparin Anti-Xa, Unfract Negative (Negative) 01/02/19 05:26 POC ABG pH 7.481 (7.35-7.45) H 01/15/19 09:24 POC ABG pCO2 53.4 (35-45) H 01/15/19 09:24 POC ABG pO2 52 (80-105) L 01/15/19 09:24 POC ABG HCO3 39.9 (22-26 mml/L) 01/15/19 09:24 POC ABG Total CO2 42 (23-27mmol/L) 01/15/19 09:24 POC ABG O2 Sat 88 01/15/19 09:24 POC ABG Base Excess 16 ((-2) - (+3)mmol/L) 01/15/19 09:24 21 % 01/15/19 09:24 Sodium 142 mmol/L (137-145) 01/15/19 07:21 Potassium 4.0 mmol/L (3.6-5.0) 01/15/19 07:21 Chloride 94.3 mmol/L (98-107) L 01/15/19 07:21 Carbon Dioxide 40 mmol/L (22-30) H 01/15/19 07:21 12 mmol/L 01/15/19 07:21 BUN 13 mg/dL (9-20) 01/15/19 07:21 0.7 mg/dL (0.8-1.5) L 01/15/19 07:21 Estimated GFR > 60 ml/min 01/15/19 07:21 19 % 01/15/19 07:21 Glucose 105 mg/dL (75-100) H 01/15/19 07:21 POC Glucose 101 (70-105) 01/15/19 07:26 Lactic Acid 1.50 mmol/L (0.7-2.0) 12/30/18 11:42 Calcium 8.9 mg/dL (8.4-10.2) 01/15/19 07:21 Phosphorus 2.30 mg/dL (2.5-4.5) L 01/11/19 04:09 Magnesium 2.00 mg/dL (1.7-2.3) 01/11/19 04:09 Iron 34 ug/dL (49-181) L 01/02/19 05:09 TIBC 231 mcg/dL (250-450) L 01/02/19 05:09 163.3 ng/mL (13.0-400.0) 01/02/19 05:09 0.70 mg/dL (0.1-1.2) 01/11/19 04:09 AST 17 units/L (5-40) 01/11/19 04:09 ALT 11 units/L (7-56) 01/11/19 04:09 51 units/L (35-129) 01/11/19 04:09 405 units/L (91-180) H 12/29/18 15:02 837 units/L (55-170) H 12/29/18 12:51 CK-MB (CK-2) 10.5 ng/mL (0.0-4.0) H 12/29/18 12:51 CK-MB (CK-2) Rel Index 1.2 (0-4) 12/29/18 12:51 0.060 ng/mL (0.00-0.029) H D 12/30/18 13:53 2.80 mg/dL (0.00-1.30) H 12/29/18 16:46 NT-Pro-B Natriuret Pep 4783 pg/mL (0-900) H 01/06/19 17:04 5.4 g/dL (6.3-8.2) L 01/11/19 04:09 2.6 g/dL (3.9-5) L 01/11/19 04:09 0.9 % 01/11/19 04:09 Triglycerides 113 mg/dL (2-149) 12/29/18 08:34 Cholesterol 120 mg/dL (50-199) 12/29/18 08:34 82 mg/dL (50-130) 12/29/18 08:34 34 mg/dL (40-59) L 12/29/18 08:34 3.52 % 12/29/18 08:34 See scanned result 01/02/19 05:26 Vitamin B12 365.3 pg/mL (211-911) 01/02/19 05:09 6.01 ng/mL (7.3-26.0) L 01/02/19 05:09 Yolande (Yellow) 12/29/18 03:00 Cloudy (Clear) 12/29/18 03:00 5.0 (5.0-7.0) 12/29/18 03:00 Ur Specific [place] 1.033 (1.003-1.030) H 12/29/18 03:00 >500 mg/dL (Negative) 12/29/18 03:00 150 mg/dL (Negative) 12/29/18 03:00 Neg mg/dL (Negative) 12/29/18 03:00 Mod (Negative) 12/29/18 03:00 Neg (Negative) 12/29/18 03:00 Neg (Negative) 12/29/18 03:00 < 2.0 mg/dL (<2.0) 12/29/18 03:00 Ur Leukocyte Esterase Neg (Negative) 12/29/18 03:00 31.0 /HPF (0.0-6.0) H 12/29/18 03:00 27.0 /HPF (0.0-6.0) 12/29/18 03:00 U Epithel Cells (Auto) 4.0 /HPF (0-13.0) 12/29/18 03:00 4+ /HPF (Negative) 12/29/18 03:00 3+ /HPF 12/29/18 03:00 Presumptive negative 12/29/18 03:00 Presumptive negative 12/29/18 03:00 Ur Barbiturates Screen Presumptive negative 12/29/18 03:00 Ur Phencyclidine Scrn Presumptive negative 12/29/18 03:00 Ur Amphetamines Screen Presumptive negative 12/29/18 03:00 U Benzodiazepines Scrn Presumptive negative 12/29/18 03:00 Presumptive negative 12/29/18 03:00 U Marijuana (THC) Screen Presumptive negative 12/29/18 03:00 Disclamer 12/29/18 03:00 Heparin-induced Plt Ab Negative (Negative) 01/02/19 05:26 UF Heparin High Dose 0 % Release 01/02/19 05:26 THOMAS UFH Low Dose 0.1 0 % Release 01/02/19 05:26 THOMAS UFH Low Dose 0.5 0 % Release 01/02/19 05:26 Urine Legionella Ag Not detected (Not Detected) 12/31/18 05:30 Blood Type O POSITIVE 12/29/18 01:53 Antibody Screen Negative 12/29/18 01:53 Crossmatch See Detail 12/29/18 01:53 Active Medications - Current Medications Current Medications: Generic Name Dose Route Start Last Admin Trade Name Freq PRN Reason Stop Dose Admin Acetaminophen 650 mg 12/29/18 04:49 12/30/18 08:33 Tylenol [place] 650 mg Q4H PRN Administration Fever >101 Acetaminophen 650 mg 01/13/19 18:56 01/13/19 19:01 Tylenol PO 650 mg Q6H PRN Administration Pain, Mild (1-3) Albuterol/Ipratropium 1 ampul 01/01/19 14:00 01/15/19 08:57 Duoneb *Not For Prn Use* IH 1 ampul Q6HRT WENDY Administration Apixaban 5 mg 01/12/19 22:00 01/15/19 10:48 Eliquis PO 5 mg Q12HR WENDY Administration Protocol Atorvastatin Calcium 40 mg 01/04/19 22:00 01/14/19 21:47 Lipitor PO 40 mg QHS WENDY Administration Clopidogrel Bisulfate 75 mg 01/12/19 21:00 01/15/19 10:48 Plavix PO 75 mg QDAY WENDY Administration Dextrose 50 ml 12/29/18 04:47 D50w (25gm) Syringe IV PRN PRN Hypoglycemia Famotidine 20 mg 01/04/19 10:00 01/15/19 10:48 Pepcid PO 20 mg BID WENDY Administration Folic Acid 1 mg 01/06/19 12:00 01/15/19 10:48 Folvite PO 1 mg QDAY WENDY Administration Furosemide 20 mg 01/13/19 13:40 01/14/19 10:31 Lasix IV 20 mg 1000 WENDY Administration Gabapentin 300 mg 01/10/19 22:00 01/14/19 21:47 Neurontin PO 300 mg HS WENDY Administration Haloperidol Lactate 5 mg 01/07/19 11:33 01/12/19 02:21 Haldol IM 5 mg Q6H PRN Administration Agitation Hydralazine HCl 10 mg 01/01/19 13:23 Apresoline IV Q4HR PRN SBP >/=170 Insulin Human Regular 0 units 01/04/19 11:30 01/15/19 08:00 Humulin R SUB-Q Not Given ACHS [facility] Protocol Levetiracetam 500 mg 01/04/19 10:00 01/15/19 10:48 Keppra PO 500 mg BID WENDY Administration Lidocaine HCl 15 ml 01/15/19 14:00 Magic Mouthwash PO TID [facility] Losartan Potassium 50 mg 01/04/19 11:00 01/14/19 10:31 Cozaar PO 50 mg DAILY WENDY Administration Metformin HCl 500 mg 01/10/19 17:00 01/15/19 08:40 Glucophage Xr PO 500 mg BIDDIAB WENDY Administration Metoprolol Tartrate 12.5 mg 01/03/19 11:00 01/14/19 21:47 Lopressor PO 12.5 mg BID WENDY Administration Ondansetron HCl 4 mg 12/29/18 04:49 Zofran IV Q8H PRN Nausea And Vomiting Quetiapine Fumarate 50 mg 01/08/19 22:00 01/14/19 21:46 Seroquel PO 50 mg QHS WENDY Administration Ropinirole HCl 1 mg 01/11/19 10:00 01/15/19 10:48 Requip PO 1 mg DAILY WENDY Administration Sertraline HCl 100 mg 01/11/19 10:00 01/15/19 10:48 Zoloft PO 100 mg QDAY WENDY Administration Nutrition/Malnutrition Assess - Dietary Evaluation Nutrition/Malnutrition Findings: Nutrition Notes Start: 12/31/18 14:59 Freq: Status: Active Protocol: Document 01/12/19 11:17 [email or web address] (Rec: 01/12/19 11:22 LIZ [id number] [email or web address]) Nutrition Notes Initial or Follow up Reassessment Current Diagnosis Coronary Artery Disease, Diabetes,Hypertension, Respiratory Failure Other Pertinent Diagnosis (R) lung effusion, (R) pneu Current Diet Cardiac/consistent carbohydrate + Glucerna BID Labs/Tests Reviewed Pertinent Medications Reviewed Height 5 ft 7 in Weight 126.5 kg [place] Body Weight (kg) 67.27 BMI 43.7 Subjective/Other Information Pt consuming 19% of meals. He is confused and agitated at times. Burn Absent Trauma Absent #1 Nutrition Diagnosis Inadequate oral intake Diagnosis Progress(for reassessment Continues documentation) Is patient on ventilator? No Is Patient Ambulatory and/or Out of Bed No REE-([facility]-confined to bed) 2356.032 Kcal/Kg value to use for calculation 14 Approximate Energy Requirements Using 1771 kcal/Kg Additional Notes Pro needs 1-1.2g/kg adjBW: 97- 116g/day Fluid needs 1ml/kcal Nutrition Intervention Change Diet Order: Continue current diet order Add Supplement/Snack (indicate name/kcal Glucerna Lena BID /protein ) Provides kCal: 440 Provides Protein (gm) 20 Goal #1 PO intake of meals plus ONS to meet at least 75% of energy and pro needs Follow-Up By: 01/15/19 Additional Comments F/U: intakes (meals/ONS), wt
--- NOTE | 2019-01-15 11:07 | Discharge Summary ---
Providers - Providers Date of Admission: 12/29/18 05:47 Attending physician: SHABNAM URIBE MD 12/29/18 04:40 Consult to Physician [CONS] Routine Comment: Consulting Provider: DANYEL WILSON Physician Instructions: Reason For Exam: ICU ADMISSION FOR MECH. VENT. AND I.V LEVOPHED 12/29/18 11:36 Consult to Physician [CONS] Routine Comment: Consulting Provider: ELIZ HAIDER Physician Instructions: Reason For Exam: ?? seizure 12/29/18 12:44 Consult to Interventional Radiology [CONS] Urgent Consulting Provider: MARY CUENCA Reason For Exam: Loculated R pleural effusion - Chest tube placemen Notified:: no 12/29/18 12:45 Consult to Physician [CONS] Urgent Comment: Consulting Provider: REYNA KEYES Physician Instructions: Reason For Exam: complex R pleural effusion; Chest tube placement 12/29/18 15:24 Consult to Physician [CONS] Routine Comment: Consulting Provider: JUAN JHAVERI Physician Instructions: Reason For Exam: Severe Sepsis with Shock Pneumonia vs UTI 12/31/18 11:54 Consult to Dietitian/Nutrition [CONS] Routine Physician Instructions: Reason For Exam: Reason for Consult: Write/Manage Tube Feeding 01/01/19 09:57 Consult to PICC Line RN [CONS] Routine Reason For Exam: need to remove femoral CVL Type Line:: Midline 01/01/19 11:16 Consult to Physician [CONS] Routine Comment: Consulting Provider: MARY LOMELI Physician Instructions: Reason For Exam: bilateral DVT's; thrombocytopenia 01/01/19 11:59 Consult to Physician [CONS] Routine Comment: Consulting Provider: LILY RIVERA Physician Instructions: Reason For Exam: DVT on heparin with thrombocytopenia 01/02/19 09:41 Physical Therapy Evaluation and Treat [CONS] Routine Comment: Reason For Exam: Debility 01/02/19 09:42 Occupational Therapy Evaluate and Treat [CONS] Routine Comment: Reason For Exam: Debility 01/03/19 10:03 Speech Therapy Evaluation and Treat [CONS] Urgent Reason For Exam: Pt extubated on 01/01/19, needs feeding 01/04/19 10:53 Speech Therapy Evaluation and Treat [CONS] Routine Reason For Exam: swallow eval 01/08/19 10:54 Physical Therapy Evaluation and Treat [CONS] Routine Comment: Reason For Exam: deconditioning 01/12/19 17:58 Consult to Wound/ET Nurse [CONS] Routine Reason For Exam: wound eval 01/15/19 08:19 Consult to Case Management [CONS] Routine Services Needed at Discharge: Other Additional Physician Instructions: subacute rehab placement Primary care physician: MICROBIOLOGY LAB ASSISTANT Hospitalization Reason for admission: acute hypoxic respiratory failure, septic shock, bilateral LE DVT Condition: Fair Pertinent studies: Venous Doppler of bilateral lower extremity IMPRESSION: Thrombus is seen within bilateral peroneal veins in the calves. There is also thrombus seen in the proximal left superficial femoral vein and left common femoral vein. CTA IMPRESSION: The heart is enlarged. There is no thoracic aortic aneurysm or dissection. There is no pulmonary embolism.. There are bilateral pleural effusions larger on the right. There is complete atelectasis of the right lung.. 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 No obstructing mass is seen. Endotracheal tube is in the distal trachea above the christina. Hospital course: 73-year-old male, with morbid obesity, HTN, CAD, s/p TX, Seizure, admitted after spouse found him on the floor with agonal breathing 10 mins after he went to bed. EMS was called and transported to the hospital in. He was diagnosed with acute respiratory failure, intubated in the ED. Patient was extubated on 01/01, put on BIPAP . Later the shunt was put on Ventimask and then NC. He was diagnosed with sepsis due to pneumonia, completed Antibiotics. He is also diagnosed with DVT both legs, seen by Dr. Rivera, was put on Arixtra. He had thrombocytopenia, now resolved. He is being switched to Eliquis since 01/07 . Large Right sided Pleural effusion- s/p chest tube was placed, s/p removal by patient. Improved with lasix.CHF with bilat pleural effusions effusions improving with lasix, no longer needs repeat R thoracenteisis. Septic vs cardiogenic shock; patient was treated with pressors and currently resolved. patient was evaluated for home O2 and discharged with home O2. Disposition: DC/TX-03 [facility] Time spent for discharge: 32 minutes - Discharge Diagnoses (1) Acute hypernatremia Status: Acute (2) Acute respiratory failure Status: Acute (3) Anemia Status: Acute (4) DVT (deep venous thrombosis) Status: Acute (5) Pleural effusion, right Status: Acute (6) Respiratory failure Status: Acute Qualifiers: Chronicity: acute Respiratory failure complication: hypoxia and hypercapnia Qualified Code(s): J96.01 - Acute respiratory failure with hypoxia; J96.02 - Acute respiratory failure with hypercapnia (7) Thrombocytopenia Status: Acute (8) Diabetes mellitus Status: Chronic (9) HTN (hypertension) Status: Chronic (10) Pneumonia Status: Suspected (11) Sepsis associated hypotension Status: Suspected Core Measure Documentation - Palliative Care Palliative Care/ Comfort Measures: Not Applicable - Core Measures Any of the following diagnoses?: none Exam - Physical Exam Narrative exam: Not in cardiopulmonary distress. The patient is morbidly obese. Vital signs as documented. Head exam is unremarkable. No scleral icterus . Neck is without jugular venous distension, thyromegaly, or carotid bruits. Lungs scattered wheezing. Cardiac exam reveals regular rate and Rhythm. Abdominal exam reveals normal bowel sounds. Extremities are nonedematous and both femoral and pedal pulses are normal. 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 No focal weakness. - Constitutional Vitals: Temp Pulse Resp BP Pulse Ox 97.8 F 79 16 85/51 94 01/15/19 08:02 01/15/19 10:47 01/15/19 08:57 01/15/19 10:47 01/15/19 10:47 Plan Activity: no restrictions Weight Bearing Status: Full Weight Bearing Diet: low salt Follow up with: JOSELO BLAS MD [Primary Care Provider] - 3-5 Days SCOTTY MARIE MD [Staff Physician] - 7 Days Prescriptions: QUEtiapine [SEROquel] 50 mg PO QHS #30 tablet Apixaban [Eliquis] 5 mg PO Q12HR #60 tablet levETIRAcetam [Keppra TAB] 500 mg PO BID #60 tablet Nystas/Diphen/Xyl Visc/Mylanta [Magic Mouthwash] 15 ml PO TID #1 bottle
--- NOTE | 2019-01-15 12:59 | Ultrasound Report ---
Bilateral Chest sonogram: History: Suspected bilateral pleural effusion. Findings: Right chest pleural fluid volume 202.7 Cubic centimeters. Left chest pleural fluid volume 33.6 cubic centimeters. Impression: Findings as detailed above.
[2019-01-15 13:26] LABS: Total Cells Counted 100
[2019-01-15 13:27] LABS: Platelet Estimate Consistent w Auto; RBC Morphology Normal
--- NOTE | 2019-01-15 13:52 | Progress Note ---
Assessment and Plan Patient awake. Following commands. Well oriented. Resting on 2 litres O2 saturation 94%.Patient goes on BIPAP during night time and PRN for shortness of breath during day time.Patients blood gases showed PO2 52. Patient is candidate for home O2. Recommend Home O2 2 litres via nasal canula. Patients Ultrasound of chest reported small bilateral pleural effusions.Pleural effusions are not big enough for thoracentesis. - Patient Problems (1) Acute respiratory failure Current Visit: Yes Status: Acute Plan to address problem: BIPAP 15/8, rate 20, FIO2 35%. O2 2 litres when he is not on BIPAP. Albuterol/atrovent aerosol treatments q 6 hours. Continue famotidine. Patient is on Apixaban. (2) Pleural effusion, right Current Visit: Yes Status: Acute Plan to address problem: Ultrasound of chest reported small bilateral pleural effusions. (3) CAD (coronary artery disease) Current Visit: Yes Status: Chronic Plan to address problem: Management as per cardiology. (4) Diabetes mellitus Current Visit: Yes Status: Chronic Plan to address problem: Management as per primary care. (5) HTN (hypertension) Current Visit: Yes Status: Chronic Plan to address problem: Management as per primary care. (6) History of CVA (cerebrovascular accident) Current Visit: Yes Status: Chronic Plan to address problem: Management as per primary care. Subjective Date of service: 01/15/19 Principal diagnosis: dvt Interval history: Patient awake. Following commands. Well oriented. Resting on 2 litres O2 saturation 94%.Patient goes on BIPAP during night time and PRN for shortness of breath during day time.Patients blood gases showed PO2 52. Patient is candidate for home O2. Recommend Home O2 2 litres via nasal canula. Patients Ultrasound of chest reported small bilateral pleural effusions.Pleural effusions are not big enough for thoracentesis. Objective Vital Signs - 12hr 01/15/19 01/15/19 01/15/19 02:23 02:24 08:02 Temperature 98.3 F 97.8 F Pulse Rate 79 73 Pulse Rate [ Anterior Bilateral Throughout] Pulse Rate [ Bilateral] Respiratory 20 20 Rate Respiratory Rate [Anterior Bilateral Throughout] Respiratory Rate [Bilateral ] Blood Pressure 125/68 115/44 Blood Pressure [Right] O2 Sat by Pulse 93 96 Oximetry 01/15/19 01/15/19 01/15/19 08:54 08:57 08:58 Temperature Pulse Rate Pulse Rate [ 80 Anterior Bilateral Throughout] Pulse Rate [ 74 Bilateral] Respiratory Rate Respiratory 16 Rate [Anterior Bilateral Throughout] Respiratory 18 Rate [Bilateral ] Blood Pressure Blood Pressure [Right] O2 Sat by Pulse 92 94 Oximetry 01/15/19 01/15/19 01/15/19 10:43 10:47 10:48 Temperature Pulse Rate 68 79 79 Pulse Rate [ Anterior Bilateral Throughout] Pulse Rate [ Bilateral] Respiratory Rate Respiratory Rate [Anterior Bilateral Throughout] Respiratory Rate [Bilateral ] Blood Pressure 88/43 85/51 Blood Pressure 85/51 [Right] O2 Sat by Pulse 95 94 Oximetry Constitutional: no acute distress, alert Eyes: non-icteric ENT: oropharynx moist Neck: supple, no lymphadenopathy, no JVD, other (large neck circumference) Effort: mildly labored Ascultation: Bilateral: diminished breath sounds, rhonchi (bases), other (Right chest tube) Percussion: Bilateral: not dull Cardiovascular: regular rate and rhythm, other (No R/M) Gastrointestinal: normoactive bowel sounds, soft, non-tender, non-distended Integumentary: normal Extremities: no cyanosis, pink and warm, pulses normal, no ischemia or petechiae, edema (1+) Neurologic: normal mental status, non-focal exam (grossly), pupils equal and round, CN II-XII normal, motor strength normal and Psychiatric: mood appropriate, affect normal CBC and BMP: 01/15/19 07:21 01/15/19 07:21 ABG, PT/INR, D-dimer: ABG POC ABG pH 7.481 (7.35-7.45) H 01/15/19 09:24 POC ABG pCO2 53.4 (35-45) H 01/15/19 09:24 POC ABG pO2 52 (80-105) L 01/15/19 09:24 POC ABG HCO3 39.9 (22-26 mml/L) 01/15/19 09:24 POC ABG Total CO2 42 (23-27mmol/L) 01/15/19 09:24 POC ABG O2 Sat 88 01/15/19 09:24 PT/INR, D-dimer PT 16.5 Sec. (12.2-14.9) H 12/30/18 18:17 INR 1.25 (0.87-1.13) H 12/30/18 18:17 815.50 ng/mlDDU (0-234) H 12/28/18 23:58 Abnormal lab findings: Abnormal Labs 12/28/18 12/28/18 12/28/18 23:58 23:58 23:58 WBC RBC 2.24 L Hgb 6.7 L Hct 20.9 L RDW 16.4 H Plt Count 99 L Lymph % (Auto) 10.7 L [place] % (Auto) 7.9 H Lymph # 0.6 L [place] # Seg Neutrophils % 80.7 H Monocytes % (Manual) Lymphocytes # (Manual) PT INR D-Dimer 815.50 H Heparin Anti-Xa Level POC ABG pH POC ABG pCO2 POC ABG pO2 Sodium 148 H Potassium 2.3 L* Chloride 128.4 H Carbon Dioxide 12 L BUN Creatinine 0.4 L Glucose POC Glucose Lactic Acid Calcium 5.0 L* Phosphorus Iron TIBC Total Bilirubin AST ALT < 5 L Lactate Dehydrogenase Total Creatine Kinase 44 L CK-MB (CK-2) CK-MB (CK-2) Rel Index 4.3 H Troponin T C-Reactive Protein NT-Pro-B Natriuret Pep Total Protein 2.3 L Albumin 1.1 L HDL Cholesterol Folate Ur Specific [place] Urine WBC (Auto) Crossmatch 12/28/18 12/29/18 12/29/18 23:58 00:27 01:53 WBC RBC Hgb Hct RDW Plt Count Lymph % (Auto) [place] % (Auto) Lymph # [place] # Seg Neutrophils % Monocytes % (Manual) Lymphocytes # (Manual) PT INR D-Dimer Heparin Anti-Xa Level POC ABG pH 7.169 L POC ABG pCO2 POC ABG pO2 Sodium Potassium Chloride Carbon Dioxide BUN Creatinine Glucose POC Glucose Lactic Acid Calcium Phosphorus Iron TIBC Total Bilirubin AST ALT Lactate Dehydrogenase Total Creatine Kinase CK-MB (CK-2) CK-MB (CK-2) Rel Index Troponin T C-Reactive Protein NT-Pro-B Natriuret Pep 1209 H Total Protein Albumin HDL Cholesterol Folate Ur Specific [place] Urine WBC (Auto) Crossmatch See Detail 12/29/18 12/29/18 12/29/18 03:00 05:02 08:34 WBC RBC Hgb Hct RDW Plt Count Lymph % (Auto) [place] % (Auto) Lymph # [place] # Seg Neutrophils % Monocytes % (Manual) Lymphocytes # (Manual) PT INR D-Dimer Heparin Anti-Xa Level POC ABG pH 7.225 L POC ABG pCO2 57.9 H POC ABG pO2 Sodium Potassium Chloride Carbon Dioxide BUN Creatinine Glucose POC Glucose Lactic Acid Calcium Phosphorus Iron TIBC Total Bilirubin AST ALT Lactate Dehydrogenase Total Creatine Kinase 344 H CK-MB (CK-2) 7.9 H CK-MB (CK-2) Rel Index Troponin T 0.103 H* D C-Reactive Protein NT-Pro-B Natriuret Pep Total Protein Albumin HDL Cholesterol 34 L Folate Ur Specific [place] 1.033 H Urine WBC (Auto) 31.0 H Crossmatch 12/29/18 12/29/18 12/29/18 08:34 08:53 12:51 WBC RBC Hgb Hct RDW Plt Count Lymph % (Auto) [place] % (Auto) Lymph # [place] # Seg Neutrophils % Monocytes % (Manual) Lymphocytes # (Manual) PT INR D-Dimer Heparin Anti-Xa Level POC ABG pH POC ABG pCO2 POC ABG pO2 Sodium Potassium 5.7 H D Chloride Carbon Dioxide BUN 21 H Creatinine Glucose 124 H POC Glucose 119 H Lactic Acid Calcium Phosphorus Iron TIBC Total Bilirubin AST ALT Lactate Dehydrogenase Total Creatine Kinase 837 H CK-MB (CK-2) 10.5 H CK-MB (CK-2) Rel Index Troponin T 0.084 H C-Reactive Protein NT-Pro-B Natriuret Pep Total Protein Albumin HDL Cholesterol Folate Ur Specific [place] Urine WBC (Auto) Crossmatch 12/29/18 12/29/18 12/29/18 12:51 12:51 15:02 WBC RBC Hgb Hct RDW 16.0 H Plt Count Lymph % (Auto) [place] % (Auto) 13.3 H Lymph # [place] # 1.4 H Seg Neutrophils % Monocytes % (Manual) Lymphocytes # (Manual) PT INR D-Dimer Heparin Anti-Xa Level POC ABG pH POC ABG pCO2 POC ABG pO2 Sodium Potassium 5.4 H Chloride Carbon Dioxide 19 L 17 L BUN 21 H 21 H Creatinine Glucose 116 H 115 H POC Glucose Lactic Acid Calcium Phosphorus Iron TIBC Total Bilirubin 1.50 H AST 43 H ALT Lactate Dehydrogenase 405 H Total Creatine Kinase CK-MB (CK-2) CK-MB (CK-2) Rel Index Troponin T C-Reactive Protein NT-Pro-B Natriuret Pep Total Protein 6.2 L D Albumin 3.1 L HDL Cholesterol Folate Ur Specific [place] Urine WBC (Auto) Crossmatch 12/29/18 12/29/18 12/29/18 15:03 16:46 16:46 WBC RBC Hgb Hct RDW Plt Count Lymph % (Auto) [place] % (Auto) Lymph # [place] # Seg Neutrophils % Monocytes % (Manual) Lymphocytes # (Manual) PT INR D-Dimer Heparin Anti-Xa Level POC ABG pH POC ABG pCO2 POC ABG pO2 Sodium Potassium Chloride Carbon Dioxide BUN Creatinine Glucose POC Glucose 121 H Lactic Acid 2.70 H* Calcium Phosphorus Iron TIBC Total Bilirubin AST ALT Lactate Dehydrogenase Total Creatine Kinase CK-MB (CK-2) CK-MB (CK-2) Rel Index Troponin T C-Reactive Protein 2.80 H NT-Pro-B Natriuret Pep Total Protein Albumin HDL Cholesterol Folate Ur Specific [place] Urine WBC (Auto) Crossmatch 12/29/18 12/29/18 12/29/18 16:50 17:37 19:37 WBC RBC Hgb Hct RDW Plt Count Lymph % (Auto) [place] % (Auto) Lymph # [place] # Seg Neutrophils % Monocytes % (Manual) Lymphocytes # (Manual) PT INR D-Dimer Heparin Anti-Xa Level POC ABG pH POC ABG pCO2 POC ABG pO2 248 H Sodium Potassium Chloride Carbon Dioxide 21 L BUN 21 H Creatinine Glucose 123 H POC Glucose 113 H Lactic Acid Calcium Phosphorus Iron TIBC Total Bilirubin AST ALT Lactate Dehydrogenase Total Creatine Kinase CK-MB (CK-2) CK-MB (CK-2) Rel Index Troponin T C-Reactive Protein NT-Pro-B Natriuret Pep Total Protein Albumin HDL Cholesterol Folate Ur Specific [place] Urine WBC (Auto) Crossmatch 12/29/18 12/29/18 12/30/18 20:10 21:36 04:43 WBC RBC Hgb Hct RDW Plt Count Lymph % (Auto) [place] % (Auto) Lymph # [place] # Seg Neutrophils % Monocytes % (Manual) Lymphocytes # (Manual) PT INR D-Dimer Heparin Anti-Xa Level POC ABG pH 7.327 L POC ABG pCO2 POC ABG pO2 79 L Sodium Potassium Chloride Carbon Dioxide BUN Creatinine Glucose POC Glucose Lactic Acid 2.70 H* 2.80 H* Calcium Phosphorus Iron TIBC Total Bilirubin AST ALT Lactate Dehydrogenase Total Creatine Kinase CK-MB (CK-2) CK-MB (CK-2) Rel Index Troponin T C-Reactive Protein NT-Pro-B Natriuret Pep Total Protein Albumin HDL Cholesterol Folate Ur Specific [place] Urine WBC (Auto) Crossmatch 12/30/18 12/30/18 12/30/18 11:42 11:42 13:43 WBC RBC Hgb Hct RDW 16.4 H Plt Count 125 L Lymph % (Auto) [place] % (Auto) Lymph # [place] # Seg Neutrophils % Monocytes % (Manual) Lymphocytes # (Manual) PT INR D-Dimer Heparin Anti-Xa Level POC ABG pH 7.225 L POC ABG pCO2 54.7 H POC ABG pO2 Sodium Potassium Chloride 108.8 H Carbon Dioxide BUN Creatinine Glucose 105 H POC Glucose Lactic Acid Calcium 8.2 L Phosphorus Iron TIBC Total Bilirubin AST ALT Lactate Dehydrogenase Total Creatine Kinase CK-MB (CK-2) CK-MB (CK-2) Rel Index Troponin T C-Reactive Protein NT-Pro-B Natriuret Pep Total Protein Albumin HDL Cholesterol Folate Ur Specific [place] Urine WBC (Auto) Crossmatch 12/30/18 12/30/18 12/30/18 13:53 18:17 18:17 WBC RBC Hgb Hct RDW Plt Count 114 L Lymph % (Auto) [place] % (Auto) Lymph # [place] # Seg Neutrophils % Monocytes % (Manual) Lymphocytes # (Manual) PT 16.5 H INR 1.25 H D-Dimer Heparin Anti-Xa Level POC ABG pH POC ABG pCO2 POC ABG pO2 Sodium Potassium Chloride Carbon Dioxide BUN Creatinine Glucose POC Glucose Lactic Acid Calcium Phosphorus Iron TIBC Total Bilirubin AST ALT Lactate Dehydrogenase Total Creatine Kinase CK-MB (CK-2) CK-MB (CK-2) Rel Index Troponin T 0.060 H D C-Reactive Protein NT-Pro-B Natriuret Pep Total Protein Albumin HDL Cholesterol Folate Ur Specific [place] Urine WBC (Auto) Crossmatch 12/31/18 12/31/18 12/31/18 00:31 04:39 05:30 WBC RBC Hgb 10.9 L Hct 32.4 L RDW 16.1 H Plt Count 97 L Lymph % (Auto) [place] % (Auto) Lymph # [place] # Seg Neutrophils % Monocytes % (Manual) Lymphocytes # (Manual) PT INR D-Dimer Heparin Anti-Xa Level 0.12 L POC ABG pH 7.337 L POC ABG pCO2 POC ABG pO2 Sodium Potassium Chloride Carbon Dioxide BUN Creatinine Glucose POC Glucose Lactic Acid Calcium Phosphorus Iron TIBC Total Bilirubin AST ALT Lactate Dehydrogenase Total Creatine Kinase CK-MB (CK-2) CK-MB (CK-2) Rel Index Troponin T C-Reactive Protein NT-Pro-B Natriuret Pep Total Protein Albumin HDL Cholesterol Folate Ur Specific [place] Urine WBC (Auto) Crossmatch 12/31/18 12/31/18 12/31/18 05:30 16:27 18:40 WBC RBC Hgb Hct RDW Plt Count Lymph % (Auto) [place] % (Auto) Lymph # [place] # Seg Neutrophils % Monocytes % (Manual) Lymphocytes # (Manual) PT INR D-Dimer Heparin Anti-Xa Level POC ABG pH 7.246 L POC ABG pCO2 52.6 H POC ABG pO2 Sodium Potassium Chloride 110.5 H Carbon Dioxide BUN Creatinine Glucose 107 H POC Glucose 109 H Lactic Acid Calcium 8.2 L Phosphorus Iron TIBC Total Bilirubin 1.30 H AST ALT Lactate Dehydrogenase Total Creatine Kinase CK-MB (CK-2) CK-MB (CK-2) Rel Index Troponin T C-Reactive Protein NT-Pro-B Natriuret Pep Total Protein 5.1 L Albumin 2.3 L HDL Cholesterol Folate Ur Specific [place] Urine WBC (Auto) Crossmatch 12/31/18 01/01/19 01/01/19 21:37 03:05 04:25 WBC RBC Hgb Hct RDW Plt Count Lymph % (Auto) [place] % (Auto) Lymph # [place] # Seg Neutrophils % Monocytes % (Manual) Lymphocytes # (Manual) PT INR D-Dimer Heparin Anti-Xa Level POC ABG pH 7.278 L POC ABG pCO2 50.6 H POC ABG pO2 111 H Sodium Potassium Chloride Carbon Dioxide BUN Creatinine Glucose POC Glucose 108 H 147 H Lactic Acid Calcium Phosphorus Iron TIBC Total Bilirubin AST ALT Lactate Dehydrogenase Total Creatine Kinase CK-MB (CK-2) CK-MB (CK-2) Rel Index Troponin T C-Reactive Protein NT-Pro-B Natriuret Pep Total Protein Albumin HDL Cholesterol Folate Ur Specific [place] Urine WBC (Auto) Crossmatch 01/01/19 01/01/19 01/01/19 04:42 04:42 06:32 WBC 3.9 L RBC 3.54 L Hgb 10.7 L Hct 31.6 L RDW 16.3 H Plt Count 83 L Lymph % (Auto) [place] % (Auto) Lymph # [place] # Seg Neutrophils % Monocytes % (Manual) Lymphocytes # (Manual) PT INR D-Dimer Heparin Anti-Xa Level POC ABG pH POC ABG pCO2 POC ABG pO2 Sodium Potassium Chloride 109.8 H Carbon Dioxide BUN Creatinine Glucose 134 H POC Glucose 143 H Lactic Acid Calcium 8.1 L Phosphorus Iron TIBC Total Bilirubin AST ALT Lactate Dehydrogenase Total Creatine Kinase CK-MB (CK-2) CK-MB (CK-2) Rel Index Troponin T C-Reactive Protein NT-Pro-B Natriuret Pep Total Protein 4.9 L Albumin 2.3 L HDL Cholesterol Folate Ur Specific [place] Urine WBC (Auto) Crossmatch 01/01/19 01/01/19 01/01/19 07:33 11:37 13:55 WBC RBC Hgb Hct RDW Plt Count Lymph % (Auto) [place] % (Auto) Lymph # [place] # Seg Neutrophils % Monocytes % (Manual) Lymphocytes # (Manual) PT INR D-Dimer Heparin Anti-Xa Level POC ABG pH 7.242 L POC ABG pCO2 55.3 H POC ABG pO2 Sodium Potassium Chloride Carbon Dioxide BUN Creatinine Glucose POC Glucose 137 H 133 H Lactic Acid Calcium Phosphorus Iron TIBC Total Bilirubin AST ALT Lactate Dehydrogenase Total Creatine Kinase CK-MB (CK-2) CK-MB (CK-2) Rel Index Troponin T C-Reactive Protein NT-Pro-B Natriuret Pep Total Protein Albumin HDL Cholesterol Folate Ur Specific [place] Urine WBC (Auto) Crossmatch 01/01/19 01/01/19 01/01/19 15:44 16:51 21:35 WBC RBC Hgb Hct RDW Plt Count Lymph % (Auto) [place] % (Auto) Lymph # [place] # Seg Neutrophils % Monocytes % (Manual) Lymphocytes # (Manual) PT INR D-Dimer Heparin Anti-Xa Level POC ABG pH 7.298 L POC ABG pCO2 50.6 H POC ABG pO2 Sodium Potassium Chloride Carbon Dioxide BUN Creatinine Glucose POC Glucose 139 H 106 H Lactic Acid Calcium Phosphorus Iron TIBC Total Bilirubin AST ALT Lactate Dehydrogenase Total Creatine Kinase CK-MB (CK-2) CK-MB (CK-2) Rel Index Troponin T C-Reactive Protein NT-Pro-B Natriuret Pep Total Protein Albumin HDL Cholesterol Folate Ur Specific [place] Urine WBC (Auto) Crossmatch 01/02/19 01/02/19 01/02/19 03:13 04:40 05:09 WBC 3.9 L RBC Hgb Hct RDW 16.1 H Plt Count 94 L Lymph % (Auto) 7.5 L [place] % (Auto) 14.2 H Lymph # 0.3 L [place] # Seg Neutrophils % 76.5 H Monocytes % (Manual) Lymphocytes # (Manual) PT INR D-Dimer Heparin Anti-Xa Level POC ABG pH 7.206 L POC ABG pCO2 65.8 H POC ABG pO2 62 L Sodium Potassium Chloride Carbon Dioxide BUN Creatinine Glucose POC Glucose 124 H Lactic Acid Calcium Phosphorus Iron TIBC Total Bilirubin AST ALT Lactate Dehydrogenase Total Creatine Kinase CK-MB (CK-2) CK-MB (CK-2) Rel Index Troponin T C-Reactive Protein NT-Pro-B Natriuret Pep Total Protein Albumin HDL Cholesterol Folate Ur Specific [place] Urine WBC (Auto) Crossmatch 01/02/19 01/02/19 01/02/19 05:09 05:09 05:32 WBC RBC Hgb Hct RDW Plt Count Lymph % (Auto) [place] % (Auto) Lymph # [place] # Seg Neutrophils % Monocytes % (Manual) Lymphocytes # (Manual) PT INR D-Dimer Heparin Anti-Xa Level POC ABG pH POC ABG pCO2 POC ABG pO2 Sodium Potassium Chloride 107.4 H Carbon Dioxide BUN Creatinine Glucose 133 H POC Glucose 130 H Lactic Acid Calcium 8.3 L Phosphorus Iron 34 L TIBC 231 L Total Bilirubin AST ALT Lactate Dehydrogenase Total Creatine Kinase CK-MB (CK-2) CK-MB (CK-2) Rel Index Troponin T C-Reactive Protein NT-Pro-B Natriuret Pep Total Protein Albumin HDL Cholesterol Folate 6.01 L Ur Specific [place] Urine WBC (Auto) Crossmatch 01/02/19 01/02/19 01/02/19 10:25 11:21 11:42 WBC RBC Hgb Hct RDW Plt Count Lymph % (Auto) [place] % (Auto) Lymph # [place] # Seg Neutrophils % Monocytes % (Manual) Lymphocytes # (Manual) PT INR D-Dimer Heparin Anti-Xa Level POC ABG pH 7.318 L POC ABG pCO2 56.7 H POC ABG pO2 215 H Sodium Potassium Chloride Carbon Dioxide BUN Creatinine Glucose POC Glucose 108 H 152 H Lactic Acid Calcium Phosphorus Iron TIBC Total Bilirubin AST ALT Lactate Dehydrogenase Total Creatine Kinase CK-MB (CK-2) CK-MB (CK-2) Rel Index Troponin T C-Reactive Protein NT-Pro-B Natriuret Pep Total Protein Albumin HDL Cholesterol Folate Ur Specific [place] Urine WBC (Auto) Crossmatch 01/02/19 01/03/19 01/03/19 17:37 04:28 10:57 WBC RBC Hgb 11.6 L Hct RDW Plt Count 105 L Lymph % (Auto) [place] % (Auto) Lymph # [place] # Seg Neutrophils % Monocytes % (Manual) Lymphocytes # (Manual) PT INR D-Dimer Heparin Anti-Xa Level POC ABG pH POC ABG pCO2 POC ABG pO2 Sodium Potassium Chloride Carbon Dioxide BUN Creatinine Glucose 111 H POC Glucose 107 H Lactic Acid Calcium Phosphorus Iron TIBC Total Bilirubin AST ALT Lactate Dehydrogenase Total Creatine Kinase CK-MB (CK-2) CK-MB (CK-2) Rel Index Troponin T C-Reactive Protein NT-Pro-B Natriuret Pep Total Protein Albumin HDL Cholesterol Folate Ur Specific [place] Urine WBC (Auto) Crossmatch 01/03/19 01/03/19 01/03/19 15:16 17:33 20:35 WBC RBC Hgb Hct RDW Plt Count Lymph % (Auto) [place] % (Auto) Lymph # [place] # Seg Neutrophils % Monocytes % (Manual) Lymphocytes # (Manual) PT INR D-Dimer Heparin Anti-Xa Level POC ABG pH POC ABG pCO2 POC ABG pO2 Sodium Potassium Chloride Carbon Dioxide BUN Creatinine Glucose POC Glucose 135 H 166 H 114 H Lactic Acid Calcium Phosphorus Iron TIBC Total Bilirubin AST ALT Lactate Dehydrogenase Total Creatine Kinase CK-MB (CK-2) CK-MB (CK-2) Rel Index Troponin T C-Reactive Protein NT-Pro-B Natriuret Pep Total Protein Albumin HDL Cholesterol Folate Ur Specific [place] Urine WBC (Auto) Crossmatch 01/04/19 01/04/19 01/04/19 01:32 04:47 04:47 WBC 4.2 L RBC Hgb 11.5 L Hct 34.9 L RDW 15.8 H Plt Count 119 L Lymph % (Auto) [place] % (Auto) Lymph # [place] # Seg Neutrophils % Monocytes % (Manual) Lymphocytes # (Manual) PT INR D-Dimer Heparin Anti-Xa Level POC ABG pH POC ABG pCO2 POC ABG pO2 Sodium Potassium 3.3 L Chloride Carbon Dioxide BUN Creatinine Glucose 110 H POC Glucose 114 H Lactic Acid Calcium 8.3 L Phosphorus Iron TIBC Total Bilirubin AST ALT Lactate Dehydrogenase Total Creatine Kinase CK-MB (CK-2) CK-MB (CK-2) Rel Index Troponin T C-Reactive Protein NT-Pro-B Natriuret Pep Total Protein Albumin HDL Cholesterol Folate Ur Specific [place] Urine WBC (Auto) Crossmatch 01/04/19 01/04/19 01/04/19 08:51 11:41 16:25 WBC RBC Hgb Hct RDW Plt Count Lymph % (Auto) [place] % (Auto) Lymph # [place] # Seg Neutrophils % Monocytes % (Manual) Lymphocytes # (Manual) PT INR D-Dimer Heparin Anti-Xa Level POC ABG pH POC ABG pCO2 POC ABG pO2 Sodium Potassium Chloride Carbon Dioxide BUN Creatinine Glucose POC Glucose 122 H 146 H 142 H Lactic Acid Calcium Phosphorus Iron TIBC Total Bilirubin AST ALT Lactate Dehydrogenase Total Creatine Kinase CK-MB (CK-2) CK-MB (CK-2) Rel Index Troponin T C-Reactive Protein NT-Pro-B Natriuret Pep Total Protein Albumin HDL Cholesterol Folate Ur Specific [place] Urine WBC (Auto) Crossmatch 01/04/19 01/05/19 01/05/19 21:16 04:41 04:41 WBC RBC Hgb Hct RDW 15.9 H Plt Count 126 L Lymph % (Auto) [place] % (Auto) Lymph # [place] # Seg Neutrophils % Monocytes % (Manual) Lymphocytes # (Manual) PT INR D-Dimer Heparin Anti-Xa Level POC ABG pH POC ABG pCO2 POC ABG pO2 Sodium Potassium 3.4 L Chloride Carbon Dioxide BUN Creatinine Glucose 128 H POC Glucose 140 H Lactic Acid Calcium Phosphorus Iron TIBC Total Bilirubin AST ALT Lactate Dehydrogenase Total Creatine Kinase CK-MB (CK-2) CK-MB (CK-2) Rel Index Troponin T C-Reactive Protein NT-Pro-B Natriuret Pep Total Protein Albumin HDL Cholesterol Folate Ur Specific [place] Urine WBC (Auto) Crossmatch 01/05/19 01/05/19 01/05/19 08:10 11:52 17:24 WBC RBC Hgb Hct RDW Plt Count Lymph % (Auto) [place] % (Auto) Lymph # [place] # Seg Neutrophils % Monocytes % (Manual) Lymphocytes # (Manual) PT INR D-Dimer Heparin Anti-Xa Level POC ABG pH POC ABG pCO2 POC ABG pO2 Sodium Potassium Chloride Carbon Dioxide BUN Creatinine Glucose POC Glucose 134 H 178 H 124 H Lactic Acid Calcium Phosphorus Iron TIBC Total Bilirubin AST ALT Lactate Dehydrogenase Total Creatine Kinase CK-MB (CK-2) CK-MB (CK-2) Rel Index Troponin T C-Reactive Protein NT-Pro-B Natriuret Pep Total Protein Albumin HDL Cholesterol Folate Ur Specific [place] Urine WBC (Auto) Crossmatch 01/05/19 01/06/19 01/06/19 21:36 03:12 03:12 WBC RBC Hgb Hct RDW 16.7 H Plt Count 138 L Lymph % (Auto) [place] % (Auto) Lymph # [place] # Seg Neutrophils % Monocytes % (Manual) Lymphocytes # (Manual) PT INR D-Dimer Heparin Anti-Xa Level POC ABG pH POC ABG pCO2 POC ABG pO2 Sodium Potassium 3.4 L Chloride Carbon Dioxide BUN Creatinine Glucose 112 H POC Glucose 119 H Lactic Acid Calcium Phosphorus Iron TIBC Total Bilirubin AST ALT Lactate Dehydrogenase Total Creatine Kinase CK-MB (CK-2) CK-MB (CK-2) Rel Index Troponin T C-Reactive Protein NT-Pro-B Natriuret Pep Total Protein Albumin HDL Cholesterol Folate Ur Specific [place] Urine WBC (Auto) Crossmatch 01/06/19 01/06/19 01/06/19 08:11 10:22 10:22 WBC RBC Hgb Hct RDW 16.7 H Plt Count Lymph % (Auto) [place] % (Auto) Lymph # [place] # Seg Neutrophils % Monocytes % (Manual) Lymphocytes # (Manual) PT INR D-Dimer Heparin Anti-Xa Level POC ABG pH POC ABG pCO2 POC ABG pO2 Sodium Potassium 3.5 L Chloride Carbon Dioxide BUN Creatinine Glucose 151 H POC Glucose 112 H Lactic Acid Calcium Phosphorus Iron TIBC Total Bilirubin AST ALT Lactate Dehydrogenase Total Creatine Kinase CK-MB (CK-2) CK-MB (CK-2) Rel Index Troponin T C-Reactive Protein NT-Pro-B Natriuret Pep Total Protein Albumin HDL Cholesterol Folate Ur Specific [place] Urine WBC (Auto) Crossmatch 01/06/19 01/06/19 01/06/19 11:51 17:04 17:57 WBC RBC Hgb Hct RDW Plt Count Lymph % (Auto) [place] % (Auto) Lymph # [place] # Seg Neutrophils % Monocytes % (Manual) Lymphocytes # (Manual) PT INR D-Dimer Heparin Anti-Xa Level POC ABG pH POC ABG pCO2 POC ABG pO2 Sodium Potassium Chloride Carbon Dioxide BUN Creatinine Glucose POC Glucose 148 H 135 H Lactic Acid Calcium Phosphorus Iron TIBC Total Bilirubin AST ALT Lactate Dehydrogenase Total Creatine Kinase CK-MB (CK-2) CK-MB (CK-2) Rel Index Troponin T C-Reactive Protein NT-Pro-B Natriuret Pep 4783 H Total Protein Albumin HDL Cholesterol Folate Ur Specific [place] Urine WBC (Auto) Crossmatch 01/06/19 01/07/19 01/07/19 20:59 08:35 10:34 WBC RBC Hgb Hct RDW Plt Count Lymph % (Auto) [place] % (Auto) Lymph # [place] # Seg Neutrophils % Monocytes % (Manual) Lymphocytes # (Manual) PT INR D-Dimer Heparin Anti-Xa Level POC ABG pH POC ABG pCO2 POC ABG pO2 Sodium Potassium Chloride Carbon Dioxide BUN Creatinine Glucose 129 H POC Glucose 115 H 143 H Lactic Acid Calcium Phosphorus Iron TIBC Total Bilirubin AST ALT Lactate Dehydrogenase Total Creatine Kinase CK-MB (CK-2) CK-MB (CK-2) Rel Index Troponin T C-Reactive Protein NT-Pro-B Natriuret Pep Total Protein Albumin HDL Cholesterol Folate Ur Specific [place] Urine WBC (Auto) Crossmatch 01/07/19 01/07/19 01/07/19 11:31 16:16 20:49 WBC RBC Hgb Hct RDW Plt Count Lymph % (Auto) [place] % (Auto) Lymph # [place] # Seg Neutrophils % Monocytes % (Manual) Lymphocytes # (Manual) PT INR D-Dimer Heparin Anti-Xa Level POC ABG pH POC ABG pCO2 POC ABG pO2 Sodium Potassium Chloride Carbon Dioxide BUN Creatinine Glucose POC Glucose 144 H 133 H 138 H Lactic Acid Calcium Phosphorus Iron TIBC Total Bilirubin AST ALT Lactate Dehydrogenase Total Creatine Kinase CK-MB (CK-2) CK-MB (CK-2) Rel Index Troponin T C-Reactive Protein NT-Pro-B Natriuret Pep Total Protein Albumin HDL Cholesterol Folate Ur Specific [place] Urine WBC (Auto) Crossmatch 01/08/19 01/08/19 01/08/19 00:19 05:11 05:11 WBC RBC Hgb Hct RDW 16.9 H Plt Count Lymph % (Auto) [place] % (Auto) Lymph # [place] # Seg Neutrophils % Monocytes % (Manual) Lymphocytes # (Manual) PT INR D-Dimer Heparin Anti-Xa Level POC ABG pH POC ABG pCO2 POC ABG pO2 Sodium Potassium Chloride Carbon Dioxide BUN Creatinine Glucose 144 H POC Glucose 129 H Lactic Acid Calcium Phosphorus Iron TIBC Total Bilirubin AST ALT Lactate Dehydrogenase Total Creatine Kinase CK-MB (CK-2) CK-MB (CK-2) Rel Index Troponin T C-Reactive Protein NT-Pro-B Natriuret Pep Total Protein Albumin HDL Cholesterol Folate Ur Specific [place] Urine WBC (Auto) Crossmatch 01/08/19 01/08/19 01/08/19 07:32 11:56 16:40 WBC RBC Hgb Hct RDW Plt Count Lymph % (Auto) [place] % (Auto) Lymph # [place] # Seg Neutrophils % Monocytes % (Manual) Lymphocytes # (Manual) PT INR D-Dimer Heparin Anti-Xa Level POC ABG pH POC ABG pCO2 POC ABG pO2 Sodium Potassium Chloride Carbon Dioxide BUN Creatinine Glucose POC Glucose 134 H 162 H 166 H Lactic Acid Calcium Phosphorus Iron TIBC Total Bilirubin AST ALT Lactate Dehydrogenase Total Creatine Kinase CK-MB (CK-2) CK-MB (CK-2) Rel Index Troponin T C-Reactive Protein NT-Pro-B Natriuret Pep Total Protein Albumin HDL Cholesterol Folate Ur Specific [place] Urine WBC (Auto) Crossmatch 01/08/19 01/09/19 01/09/19 21:36 08:42 11:41 WBC RBC Hgb Hct RDW Plt Count Lymph % (Auto) [place] % (Auto) Lymph # [place] # Seg Neutrophils % Monocytes % (Manual) Lymphocytes # (Manual) PT INR D-Dimer Heparin Anti-Xa Level POC ABG pH POC ABG pCO2 POC ABG pO2 Sodium Potassium Chloride Carbon Dioxide BUN Creatinine Glucose POC Glucose 166 H 114 H 136 H Lactic Acid Calcium Phosphorus Iron TIBC Total Bilirubin AST ALT Lactate Dehydrogenase Total Creatine Kinase CK-MB (CK-2) CK-MB (CK-2) Rel Index Troponin T C-Reactive Protein NT-Pro-B Natriuret Pep Total Protein Albumin HDL Cholesterol Folate Ur Specific [place] Urine WBC (Auto) Crossmatch 01/09/19 01/09/19 01/10/19 16:06 21:59 11:46 WBC RBC Hgb Hct RDW Plt Count Lymph % (Auto) [place] % (Auto) Lymph # [place] # Seg Neutrophils % Monocytes % (Manual) Lymphocytes # (Manual) PT INR D-Dimer Heparin Anti-Xa Level POC ABG pH POC ABG pCO2 POC ABG pO2 Sodium Potassium Chloride Carbon Dioxide BUN Creatinine Glucose POC Glucose 130 H 159 H 126 H Lactic Acid Calcium Phosphorus Iron TIBC Total Bilirubin AST ALT Lactate Dehydrogenase Total Creatine Kinase CK-MB (CK-2) CK-MB (CK-2) Rel Index Troponin T C-Reactive Protein NT-Pro-B Natriuret Pep Total Protein Albumin HDL Cholesterol Folate Ur Specific [place] Urine WBC (Auto) Crossmatch 01/10/19 01/10/19 01/11/19 16:45 22:41 04:09 WBC 4.4 L RBC Hgb Hct RDW 16.5 H Plt Count 131 L Lymph % (Auto) [place] % (Auto) 11.8 H Lymph # 0.7 L [place] # Seg Neutrophils % Monocytes % (Manual) Lymphocytes # (Manual) PT INR D-Dimer Heparin Anti-Xa Level POC ABG pH POC ABG pCO2 POC ABG pO2 Sodium Potassium Chloride Carbon Dioxide BUN Creatinine Glucose POC Glucose 136 H 132 H Lactic Acid Calcium Phosphorus Iron TIBC Total Bilirubin AST ALT Lactate Dehydrogenase Total Creatine Kinase CK-MB (CK-2) CK-MB (CK-2) Rel Index Troponin T C-Reactive Protein NT-Pro-B Natriuret Pep Total Protein Albumin HDL Cholesterol Folate Ur Specific [place] Urine WBC (Auto) Crossmatch 01/11/19 01/11/19 01/11/19 04:09 07:31 11:54 WBC RBC Hgb Hct RDW Plt Count Lymph % (Auto) [place] % (Auto) Lymph # [place] # Seg Neutrophils % Monocytes % (Manual) Lymphocytes # (Manual) PT INR D-Dimer Heparin Anti-Xa Level POC ABG pH POC ABG pCO2 POC ABG pO2 Sodium 146 H Potassium 3.4 L D Chloride 96.9 L Carbon Dioxide 40 H D BUN Creatinine 0.7 L Glucose 110 H POC Glucose 116 H 138 H Lactic Acid Calcium Phosphorus 2.30 L Iron TIBC Total Bilirubin AST ALT Lactate Dehydrogenase Total Creatine Kinase CK-MB (CK-2) CK-MB (CK-2) Rel Index Troponin T C-Reactive Protein NT-Pro-B Natriuret Pep Total Protein 5.4 L Albumin 2.6 L HDL Cholesterol Folate Ur Specific [place] Urine WBC (Auto) Crossmatch 01/11/19 01/12/19 01/12/19 16:33 03:04 08:23 WBC RBC Hgb Hct RDW Plt Count Lymph % (Auto) [place] % (Auto) Lymph # [place] # Seg Neutrophils % Monocytes % (Manual) Lymphocytes # (Manual) PT INR D-Dimer Heparin Anti-Xa Level POC ABG pH POC ABG pCO2 POC ABG pO2 Sodium Potassium Chloride Carbon Dioxide BUN Creatinine Glucose POC Glucose 147 H 106 H 128 H Lactic Acid Calcium Phosphorus Iron TIBC Total Bilirubin AST ALT Lactate Dehydrogenase Total Creatine Kinase CK-MB (CK-2) CK-MB (CK-2) Rel Index Troponin T C-Reactive Protein NT-Pro-B Natriuret Pep Total Protein Albumin HDL Cholesterol Folate Ur Specific [place] Urine WBC (Auto) Crossmatch 01/12/19 01/12/19 01/12/19 11:24 16:33 21:49 WBC RBC Hgb Hct RDW Plt Count Lymph % (Auto) [place] % (Auto) Lymph # [place] # Seg Neutrophils % Monocytes % (Manual) Lymphocytes # (Manual) PT INR D-Dimer Heparin Anti-Xa Level POC ABG pH POC ABG pCO2 POC ABG pO2 Sodium Potassium Chloride Carbon Dioxide BUN Creatinine Glucose POC Glucose 146 H 168 H 111 H Lactic Acid Calcium Phosphorus Iron TIBC Total Bilirubin AST ALT Lactate Dehydrogenase Total Creatine Kinase CK-MB (CK-2) CK-MB (CK-2) Rel Index Troponin T C-Reactive Protein NT-Pro-B Natriuret Pep Total Protein Albumin HDL Cholesterol Folate Ur Specific [place] Urine WBC (Auto) Crossmatch 01/13/19 01/13/19 01/13/19 07:30 10:04 11:41 WBC RBC Hgb Hct RDW Plt Count Lymph % (Auto) [place] % (Auto) Lymph # [place] # Seg Neutrophils % Monocytes % (Manual) Lymphocytes # (Manual) PT INR D-Dimer Heparin Anti-Xa Level POC ABG pH POC ABG pCO2 POC ABG pO2 Sodium Potassium Chloride 89.5 L Carbon Dioxide 46 H* BUN Creatinine 0.7 L Glucose 107 H POC Glucose 108 H 110 H Lactic Acid Calcium Phosphorus Iron TIBC Total Bilirubin AST ALT Lactate Dehydrogenase Total Creatine Kinase CK-MB (CK-2) CK-MB (CK-2) Rel Index Troponin T C-Reactive Protein NT-Pro-B Natriuret Pep Total Protein Albumin HDL Cholesterol Folate Ur Specific [place] Urine WBC (Auto) Crossmatch 01/13/19 01/13/19 01/14/19 16:31 21:37 07:30 WBC RBC Hgb Hct RDW Plt Count Lymph % (Auto) [place] % (Auto) Lymph # [place] # Seg Neutrophils % Monocytes % (Manual) Lymphocytes # (Manual) PT INR D-Dimer Heparin Anti-Xa Level POC ABG pH POC ABG pCO2 POC ABG pO2 Sodium Potassium Chloride Carbon Dioxide BUN Creatinine Glucose POC Glucose 129 H 123 H 110 H Lactic Acid Calcium Phosphorus Iron TIBC Total Bilirubin AST ALT Lactate Dehydrogenase Total Creatine Kinase CK-MB (CK-2) CK-MB (CK-2) Rel Index Troponin T C-Reactive Protein NT-Pro-B Natriuret Pep Total Protein Albumin HDL Cholesterol Folate Ur Specific [place] Urine WBC (Auto) Crossmatch 01/14/19 01/15/19 01/15/19 11:32 07:21 07:21 WBC 3.1 L RBC Hgb Hct RDW 16.8 H Plt Count 112 L Lymph % (Auto) [place] % (Auto) Lymph # [place] # Seg Neutrophils % Monocytes % (Manual) 10.0 H Lymphocytes # (Manual) 0.9 L PT INR D-Dimer Heparin Anti-Xa Level POC ABG pH POC ABG pCO2 POC ABG pO2 Sodium Potassium Chloride 94.3 L Carbon Dioxide 40 H BUN Creatinine 0.7 L Glucose 105 H POC Glucose 130 H Lactic Acid Calcium Phosphorus Iron TIBC Total Bilirubin AST ALT Lactate Dehydrogenase Total Creatine Kinase CK-MB (CK-2) CK-MB (CK-2) Rel Index Troponin T C-Reactive Protein NT-Pro-B Natriuret Pep Total Protein Albumin HDL Cholesterol Folate Ur Specific [place] Urine WBC (Auto) Crossmatch 01/15/19 09:24 WBC RBC Hgb Hct RDW Plt Count Lymph % (Auto) [place] % (Auto) Lymph # [place] # Seg Neutrophils % Monocytes % (Manual) Lymphocytes # (Manual) PT INR D-Dimer Heparin Anti-Xa Level POC ABG pH 7.481 H POC ABG pCO2 53.4 H POC ABG pO2 52 L Sodium Potassium Chloride Carbon Dioxide BUN Creatinine Glucose POC Glucose Lactic Acid Calcium Phosphorus Iron TIBC Total Bilirubin AST ALT Lactate Dehydrogenase Total Creatine Kinase CK-MB (CK-2) CK-MB (CK-2) Rel Index Troponin T C-Reactive Protein NT-Pro-B Natriuret Pep Total Protein Albumin HDL Cholesterol Folate Ur Specific [place] Urine WBC (Auto) Crossmatch Additional Studies: Ultrasound of chest 01/15/19 reported small bilateral pleural effusions. Allied health notes reviewed: nursing
[2019-01-15] MEDS ORDERED: MAGIC MOUTHWASH PO SCH (14:00)
[2019-01-15 14:03] VITALS: BP 127/75
== END 2019-01-15 15:35 | DRG 871 ==
LOC: ED 22:34 → CC1 12-29 05:47 → IMCU 01-03 15:28 → 2B-ACE 01-11 18:43
PROVIDERS: ADMIT Internal Medicine; ATTEND Internal Medicine
PROC: 5A1945Z Respiratory Ventilation, 24-96 Consecutive Hours (ICD-10-PCS; principal; 2018-12-29)
PROC: 0BH17EZ Insertion of Endotracheal Airway into Trachea, Via Natural or Artificial Opening (ICD-10-PCS; 2018-12-29)
PROC: 06HN33Z Insertion of Infusion Device into Left Femoral Vein, Percutaneous Approach (ICD-10-PCS; 2018-12-29)
PROC: B54CZZA Ultrasonography of Left Lower Extremity Veins, Guidance (ICD-10-PCS; 2018-12-29)
PROC: 4A033R1 Measurement of Arterial Saturation, Peripheral, Percutaneous Approach (ICD-10-PCS; 2018-12-29)
PROC: 0W9930Z Drainage of Right Pleural Cavity with Drainage Device, Percutaneous Approach (ICD-10-PCS; 2018-12-29)
PROC: 5A09557 Assistance with Respiratory Ventilation, Greater than 96 Consecutive Hours, Continuous Positive Airway Pressure (ICD-10-PCS; 2019-01-01)
PROC: 05HY33Z Insertion of Infusion Device into Upper Vein, Percutaneous Approach (ICD-10-PCS; 2019-01-01)
PROC: 5A09457 Assistance with Respiratory Ventilation, 24-96 Consecutive Hours, Continuous Positive Airway Pressure (ICD-10-PCS; 2019-01-13)
DX: A41.9 Sepsis, unspecified organism (principal); J96.01 Acute respiratory failure with hypoxia; I21.4 Non-ST elevation (NSTEMI) myocardial infarction; G93.41 Metabolic encephalopathy; R65.21 Severe sepsis with septic shock; J18.9 Pneumonia, unspecified organism; E43 Unspecified severe protein-calorie malnutrition; J96.02 Acute respiratory failure with hypercapnia; I82.412 Acute embolism and thrombosis of left femoral vein; E87.0 Hyperosmolality and hypernatremia; J90 Pleural effusion, not elsewhere classified; Z68.41 Body mass index [BMI] 40.0-44.9, adult; E87.1 Hypo-osmolality and hyponatremia; D64.9 Anemia, unspecified; I95.9 Hypotension, unspecified; I10 Essential (primary) hypertension; I25.10 Atherosclerotic heart disease of native coronary artery without angina pectoris; E11.9 Type 2 diabetes mellitus without complications; M19.90 Unspecified osteoarthritis, unspecified site; E87.6 Hypokalemia; E83.51 Hypocalcemia; E66.01 Morbid (severe) obesity due to excess calories; G25.81 Restless legs syndrome; G40.909 Epilepsy, unspecified, not intractable, without status epilepticus; I25.5 Ischemic cardiomyopathy; D69.6 Thrombocytopenia, unspecified; Z95.1 Presence of aortocoronary bypass graft; Z88.0 Allergy status to penicillin; Z90.49 Acquired absence of other specified parts of digestive tract; Z86.73 Personal history of transient ischemic attack (TIA), and cerebral infarction without residual deficits
CPT/HCPCS: 36415; 36430; 36600; 70450; 71045; 71046; 71250; 71275; 76604; 76700; 80048; 80053; 80061; 80307; 81001; 82140; 82550; 82553; 82607; 82728; 82747; 82803; 82962; 83550; 83615; 83735; 83880; 84100; 84132; 84484; 85007; 85014; 85018; 85025; 85027; 85049; 85379; 85520; 85610; 85730; 86022; 86140; 86850; 86900; 86901; 86920; 87040; 87070; 87086; 87116; 87205; 87449; 93005; 93010; 93306; 93925; 93970; 94002; 94003; 94640; 94660; 94760; 95819; G0378; A6250; A9270-GY; J0360; J0461; J0692; J1630; J1644; J1652; J1815; J1940; J1953; J1956; J2704; J3010; J3480; J7030; J7050; Q9967

== ENCOUNTER 2019-06-24 09:23 | Outpatient (CLI) | payer MEDICARE ==
--- NOTE | 2019-06-24 10:08 | Ultrasound Report ---
ULTRASOUND CHEST HISTORY: Pleural effusion in other conditions classified elsewhere FINDINGS: Targeted grayscale ultrasound was performed on both sides of the chest. A small right pleur al effusion is identified with volume estimated at 129 cc. No left pleural fluid is demonstrated. IMPRESSION: Small right pleural effusion estimated at 129 cc. Signer Name: Santo Perez Jr, MD Signed: 06/24/2019 10:04 AM Workstation Name: [id number]
== END 2019-06-24 09:24 | disposition home or self-care (01) ==
LOC: US 09:23
PROVIDERS: ATTEND Internal Medicine
DX: J90 Pleural effusion, not elsewhere classified (principal); I10 Essential (primary) hypertension; M19.90 Unspecified osteoarthritis, unspecified site
CPT/HCPCS: 76604